=== PATIENT | male | born 1945 | race Caucasian/White ===

== ENCOUNTER → 2016-05-16 | Outpatient (CLI) | payer BC ==
[~2016-05-16] MED LIST: ASPEC81 PO; ENAL1TAB34 PO; FIBER PO; FLM4 PO; MULT-506 PO; PRLSR20 PO; TRIA0.1C20 TD
[2016-05-16 12:21] LABS: BASO % 0.4 %; BASO ABS # 0.02 K/uL (0-0.2); COMPLETE YES; EOS % 2.8 %; HEMATOCRIT 41.6 % (42-52); IG% 0.2 %; LYMPH % 23.6 %; MEAN CELL VOLUME 89.7 fL (80-100); MEAN CORPUSCULAR HEMOGLOBIN 30.4 pg (25-34); MEAN CORPUSCULAR HGB CONC 33.9 g/dl (32-36); MEAN PLATELET VOLUME 10.9 fL (7.4-10.4); MONO % 9.6 %; NEUT % 63.4 %; PLATELET COUNT 166 K/uL (130-400); RED BLOOD COUNT 4.64 M/uL (4.7-6.1); WHITE BLOOD COUNT 5.09 K/uL (4.8-10.8)
[2016-05-16 15:02] LABS: BLOOD UREA NITROGEN 15 mg/dl (7-18); BUN/CREATININE RATIO 12.8 (10-20); CALCIUM 9.2 mg/dl (8.5-10.1); CARBON DIOXIDE 25 mmol/L (21-32); CHLORIDE 107 mmol/L (98-107); GLUCOSE 92 mg/dl (70-99); MAGNESIUM 2.3 mg/dl (1.8-2.4); POTASSIUM 4.2 mmol/L (3.5-5.1); SODIUM 142 mmol/L (136-145)
[2016-05-16 15:09] LABS: ALB/GLOB RATIO 1.2 (0.9-2); ALKALINE PHOSPHATASE 57 U/L (45-117); ALT/SGPT 33 U/L (12-78); AST/SGOT 22 U/L (15-37); CHOLESTEROL 108 mg/dl (0-200); CHOLESTEROL/HDL RATIO 3.3; HDL CHOLESTEROL 33 mg/dl; LDL CHOLESTEROL CALCULATED 56 mg/dl; TRIGLYCERIDES 95 mg/dl (0-150); VERY LOW DENSITY LIPOPROT CALC 19 mg/dl
== END | disposition home or self-care (01) ==
LOC: C.LABPVFM 08:24
PROVIDERS: ATTEND Family Medicine
DX: I10 Essential (primary) hypertension (principal); E78.5 Hyperlipidemia, unspecified; K21.9 Gastro-esophageal reflux disease without esophagitis; I73.00 Raynaud's syndrome without gangrene; Z51.81 Encounter for therapeutic drug level monitoring; M50.90 Cervical disc disorder, unspecified, unspecified cervical region; M47.812 Spondylosis without myelopathy or radiculopathy, cervical region; L30.9 Dermatitis, unspecified; R13.10 Dysphagia, unspecified; K57.30 Diverticulosis of large intestine without perforation or abscess without bleeding; M25.50 Pain in unspecified joint; Z12.5 Encounter for screening for malignant neoplasm of prostate

== ENCOUNTER → 2016-12-09 | Outpatient (CLI) | payer BC ==
[2016-12-09 13:07] LABS: ALB/GLOB RATIO 1.2 (0.9-2); ALT/SGPT 31 U/L (12-78); AST/SGOT 21 U/L (15-37); BLOOD UREA NITROGEN 16 mg/dl (7-18); BUN/CREATININE RATIO 14.4 (10-20); CALCIUM 9.3 mg/dl (8.5-10.1); CARBON DIOXIDE 26 mmol/L (21-32); CHLORIDE 109 mmol/L (98-107); CHOLESTEROL 98 mg/dl (0-200); GLUCOSE 94 mg/dl (70-99); POTASSIUM 4.1 mmol/L (3.5-5.1); SODIUM 141 mmol/L (136-145)
[2016-12-09 13:10] LABS: ALKALINE PHOSPHATASE 56 U/L (45-117); CHOLESTEROL/HDL RATIO 3.2; HDL CHOLESTEROL 31 mg/dl; LDL CHOLESTEROL CALCULATED 46 mg/dl; TRIGLYCERIDES 104 mg/dl (0-150); VERY LOW DENSITY LIPOPROT CALC 21 mg/dl
== END | disposition home or self-care (01) ==
LOC: C.LABPVFM 09:46
PROVIDERS: ATTEND Family Medicine
DX: I10 Essential (primary) hypertension (principal); E78.5 Hyperlipidemia, unspecified; K21.9 Gastro-esophageal reflux disease without esophagitis; N40.1 Benign prostatic hyperplasia with lower urinary tract symptoms; I73.00 Raynaud's syndrome without gangrene; R97.20 Elevated prostate specific antigen [PSA]

== ENCOUNTER → 2016-12-15 | Outpatient (CLI) | payer BC ==
--- NOTE | 2016-12-15 10:54 | DIAGNOSTIC IMAGING REPORT ---
C-SPINE ROUTINE 4 OR 5 VIEWS HISTORY: Pain. Neuropathy. M54.2 [id number] COMPARISON: None. FINDINGS: The cervical spine is visualized from C1 through the superior endplate of T1. There is no fracture. No subluxation. Degenerative disc change most significant from C5 through C7. Moderate anterior and posterior osteophytic change throughout. Osteophytic narrowing of the neuroforamina bilaterally from C5 through C7. Prevertebral soft tissues and the atlantodens interval are intact. IMPRESSION: Moderate to rather significant degenerative disc change from C5 through C7. Moderate degenerative change posterior elements. No acute process. The above report was generated using voice recognition software. It may contain grammatical, syntax or spelling errors. Electronically signed by: Guillermo Wild M.D. 12/15/2016 10:53 AM Dictated Date/Time: 12/15/2016 10:51 AM
== END | disposition home or self-care (01) ==
LOC: C.LABPVFM 10:18
PROVIDERS: ATTEND Family Medicine
DX: M54.2 Cervicalgia (principal)

== ENCOUNTER → 2017-06-12 | Outpatient (CLI) | payer BC ==
[2017-06-12 14:05] LABS: ALT/SGPT 31 U/L (12-78); BLOOD UREA NITROGEN 20 mg/dl (7-18); CALCIUM 9.1 mg/dl (8.5-10.1); CARBON DIOXIDE 27 mmol/L (21-32); CHOLESTEROL 103 mg/dl (0-200); CREATININE 1.26 mg/dl (0.60-1.40); GLUCOSE 94 mg/dl (70-99); SODIUM 138 mmol/L (136-145)
[2017-06-12 14:11] LABS: ALKALINE PHOSPHATASE 54 U/L (45-117); AST/SGOT 22 U/L (15-37); LDL CHOLESTEROL CALCULATED 58 mg/dl; TOTAL PROTEIN 7.5 gm/dl (6.4-8.2)
== END | disposition home or self-care (01) ==
LOC: C.LABPVFM 09:37
PROVIDERS: ATTEND Family Medicine
DX: I10 Essential (primary) hypertension (principal); E78.5 Hyperlipidemia, unspecified; K21.9 Gastro-esophageal reflux disease without esophagitis; I73.00 Raynaud's syndrome without gangrene; N40.1 Benign prostatic hyperplasia with lower urinary tract symptoms; M54.2 Cervicalgia

== ENCOUNTER → 2017-07-17 | Outpatient (CLI) | payer BC | END | disposition home or self-care (01) | LOC: C.LABPVFM 09:47 | PROVIDERS: ATTEND Family Medicine | DX: N40.1 Benign prostatic hyperplasia with lower urinary tract symptoms (principal) ==

== ENCOUNTER 2018-10-19 19:56 | Inpatient (IN) ==
[2018-10-19] MEDS ORDERED: SODIUM CHLORIDE 0.9% 250 ML IV PRN (20:09)
[2018-10-19] MEDS ORDERED: SODIUM CHLORIDE 0.9% 500 ML IV SCH (20:15)
[2018-10-19 20:56] LABS: Mean Corpuscular Hgb Conc 28.4 g/dL (32-36)
[2018-10-19 21:03] LABS: Alanine Aminotransferase 21 U/L (12-78); Albumin Level 4.3 gm/dl (3.4-5.0); Aspartate Aminotransferase 21 U/L (15-37); BUN Creatinine Ratio 14.8 (10-20); Blood Urea Nitrogen 19 mg/dl (7-18); Calcium 8.8 mg/dl (8.5-10.1); Carbon Dioxide 25 mmol/L (21-32); Chloride 106 mmol/L (98-107); Creatinine Clr Calc Pharmacy 47.5 ml/min; Est GFR (African American) 61.9; Est GFR (Non-African American) 53.4; Glucose 92 mg/dl (70-99); Iron 12 mcg/dl (35-175); Sodium 137 mmol/L (136-145)
[2018-10-19 21:06] LABS: Albumin Globulin Ratio 1.2 (0.9-2); Alkaline Phosphatase 56 U/L (45-117); Bilirubin,Total 0.3 mg/dl (0.2-1); Ferritin 4.7 ng/ml (8-388); Globulin 3.5 gm/dl (2.5-4.0); Total Protein 7.8 gm/dl (6.4-8.2); Transferrin 402 mg/dl (200-360); Troponin I < 0.015 ng/ml (0-0.045)
[2018-10-19 21:10] LABS: Anisocytosis Present; Basophils # (manual) 0.04 K/uL (0-0.2); Basophils % (manual) 0.9 %; Eosinophils # (manual) 0.04 K/uL (0-0.5); Eosinophils % (manual) 0.9 %; Giant Platelets 2+; Hematocrit (blood only) 23.2 % (42-52); Hemoglobin 6.6 g/dL (14.0-18.0); Hypochromasia Present; Lymphocytes # (manual) 0.43 K/uL (1.2-3.4); Lymphocytes % (manual) 9.8 %; Mean Corpuscular Volume 66.3 fL (80-100); Microcytosis Present; Monocytes # (manual) 0.24 K/uL (0.11-0.59); Monocytes % (manual) 5.4 %; Neutrophils % (manual) 72.3 %; Ovalocytes 1+; Platelet Count 103 K/uL (130-400); Platelet Estimate Decreased (Normal); Poikilocytosis Present; Polychromasia 1+; RDW Standard Deviation 53.2 fL (36.4-46.3); Reactive Lymphocytes # (manual) 0.47 K/uL; Spherocytes Occasional; Target Cells 1+
[2018-10-19 21:26] LABS: Fibrinogen 246 mg/dl (184-400); INR 1.1 (0.9-1.1); Partial Thromboplastin Ratio 0.8; Partial Thromboplastin Time 22.5 Seconds (21.0-31.0); Prothrombin Time 11.1 Seconds (9.0-12.0)
[2018-10-19 21:41] LABS: Lyme Ab IgG w/WB Rflx Negative (Negative); Lyme Ab IgM w/WB Rflx Negative (Negative)
--- NOTE | 2018-10-19 21:56 | History & Physical Report ---
Date of Service October 19, 2018 Assessment & Plan (1) Dyspnea on exertion: Pt is a 73yo gentleman with a PMHx of GERD, HTN, HLD, BPH, and chronic low back and neck pain presenting with symptoms of dyspnea on exertion and melena. Melena -Pt states he has been having black stools for the last week -Hgb of 6 noted on admission with microcytic anemia. -currently stable however with blood pressure >120 systolic and HR within normal range s/p fluid boluses in the ED -will transfuse but not emergently; type and cross and consent -Given color of stools, likely an upper GI bleed. -Has a Hx of being scoped by Dr. Toth in the past; states his last EGD was within the last year. -States they noted a gastric polyp which was nonconcerning. Hx of GERD and takes omeprazole but No Hx of ulcers. -Given microcytic anemia with bleeding, will need to rule out colorectal carci noma. -Last colonoscopy was in the last 4 years, no concerns -Pt states he uses a baby aspirin daily along with Excedrin sporadically for his chronic back pain. Last Excedrin dose was yesterday. -No alcohol use in the last 5 years -will consult GI -will keep NPO for possible procedure in AM -will start on Pepcid, given NPO status hold home omeprazole -continue fluids Pancytopenia -Pt with pancytopenia as well -DDx includes Myelodysplastic Syndrome vs. acute infection such as anaplasmosis/erlichiosis vs. other -Lyme, anaplasmosis titers ordered by ED -Peripheral smear pending Dyspnea on Exertion -Likely secondary to GI Bleed as above -currently on room air and saturating well -supplement O2 as needed GERD -hold home omeprazole -On Pepcid IV for GI bleed HTN -currently well controlled -Hold home med of nifidepine overnight HLD -given NPO status hold home med of atorvastatin overnight BPH -Given NPO status, hold tamsulosin overnight Chronic Low back pain -Tylenol 1000mg PRN DVT prophylaxis: SCDs FEN/GI: NPO until GI sees him; NSS CODE STATUS: Full Dispo: Med Surg with Tele History of Present Illness Primary Care Provider: Tali Lan MD Pt is a 73yo gentleman with a PMHx of GERD, HTN, HLD, BPH, and chronic low back and neck pain presenting with symptoms of dyspnea on exertion and Hx of melena. Pt states he was at his hairdresser whom he has not seen for while, who stated that he looked "yellow" or pale. He as a result made an appt with his PCP and went in today cause he also has chronic back pain. They benjamin labs and he got a call this evening advising he go to the ED as his hgb was 6. States he has been having dyspnea on exertion since the Spring but has noted it particularly in the last week along with the black stools. No Hx of NSAID use, does use Excedrin for his pain sporadically along with a daily baby aspirin. No alcohol use but does endorse a Hx of being scoped by Dr. Toth in the last year and told he had a nonconcerning gastric polyp. Does not recall any ulcers. Has had a colonoscopy with the last about 4 years ago. PMHx: HTN, GERD, HLD, BPH, chronic back pain PSH: hernia repair Meds: as listed below Allergies: as listed below SH: Smoker of cigarettes and pipe for 30years, stopped in 1984. No alcohol use in the last 5 years. No recreational drug use. ED Course: At time of writing transfusing 1U. Allergies Allergy/AdvReac Type Severity Reaction Status Date / Time Amoxil TAB Allergy Unknown Uncoded 10/19/18 13:49 Atenolol TABS Allergy Unknown Uncoded 10/19/18 13:49 Home Medications Home Medications Medication Instructions Recorded Confirmed Type atorvastatin 10 mg tablet 10 mg PO DAILY #90 tab 10/17/18 10/19/18 Rx calcium polycarbophil 625 mg tablet 625 mg PO DAILY #60 tab 10/17/18 10/19/18 Rx enalapril maleate 20 mg tablet 20 mg PO DAILY #90 tab 10/19/18 10/19/18 Rx nifedipine 30 mg PO QPM 10/19/18 10/19/18 History omeprazole magnesium 20 mg PO Q OTHER DAY 10/19/18 10/19/18 History ranitidine HCl [Zantac] 150 mg PO Q OTHER DAY 10/19/18 10/19/18 History tamsulosin 0.4 mg PO QPM 10/19/18 10/19/18 History Past Med/Surg History Medical History Atrial fibrillation BPH (benign prostatic hyperplasia) GERD (gastroesophageal reflux disease) Hypertension No significant past medical history TMJ (temporomandibular joint disorder) Surgical History H/O hernia repair Social History Preferred Language: Finnish [employer] Required: No Beliefs That Will Affect Care: None Current Living Situation: Spouse Other Information That Helps Us Care for You: No Feels Safe at Home: Yes Safety Concerns: Feels Safe At This Time Smoking Status: Former smoker Tobacco Type: cigarettes and pipe Smoking End Date: 1984 Hx Alcohol Use: No Hx Substance Use: No Review of Systems Constitutional: + fatigue and + weakness; no fever and no chills Eyes: no worsening vision Ear, Nose, Mouth, Throat: + dizziness Respiratory: + dyspnea on exertion; no hemoptysis Cardiovascular: + dyspnea and + lightheadedness; no chest pain, no palpitations, no syncope and no edema Gastrointestinal: no abdominal pain, no nausea, no vomiting, no constipation and no diarrhea/loose stools Genitourinary: no dysuria Musculoskeletal: + back pain and + neck pain Neurologic: + dizziness; no headache(s) and no confusion Psychiatric: no confusion Endocrine: + fatigue Physical Exam Constitutional: well developed and + thin; no acute distress Eyes: PERRL, conjunctivae normal, anicteric sclerae ENMT: external ear and nose normal, oropharynx normal Neck: trachea midline, no thyromegaly Respiratory: normal respiratory effort, lungs clear to auscultation Auscultation: + diminished lung sounds Cardiovascular: RRR, no murmur, no edema Gastrointestinal (Abdomen): normal bowel sounds, soft, nontender, no hepatosplenomegaly Musculoskeletal: no cyanosis or clubbing, extremities motor strength 5/5 Neurologic: moves all extremities; not confused Psychiatric: A+Ox3, euthymic affect Results & Data Vital Signs (Past 12 Hours) Vital Signs Temp Pulse Resp BP Pulse Ox 10/19/18 20:09 96 10/19/18 19:58 36.5 C 84 18 154/80 H 100 Laboratory Results Laboratory Results - last 24 hr 10/19/18 10/19/18 10/19/18 20:09 20:20 20:20 WBC 4.37 L RBC 3.50 L Hgb 6.6 L* Hct 23.2 L MCV 66.3 L MCH 18.9 L MCHC 28.4 L RDW Std Deviation 53.2 H RDW Coeff of Joesph 22.0 H Plt Count 103 L MPV Not Reportable Neutrophils % (Manual) 72.3 Lymphocytes % (Manual) 9.8 Reactive Lymphs % (Man) 10.7 Monocytes % (Manual) 5.4 Eosinophils % (Manual) 0.9 Basophils % (Manual) 0.9 Neutrophils # (Manual) 3.16 Total Absolute Neuts 3.16 Lymphocytes # (Manual) 0.43 L Reactive Lymphs # 0.47 Total Abs Lymphocytes 0.90 L Monocytes # (Manual) 0.24 Eosinophils # (Manual) 0.04 Basophils # (Manual) 0.04 Platelet Estimate Decreased L Giant Platelets 2+ Polychromasia 1+ Hypochromasia Present Poikilocytosis Present Anisocytosis Present Microcytosis Present Spherocytes Occasional Target Cells 1+ Ovalocytes 1+ Peripher Smr Path Cons Pending Haptoglobin PT 11.1 INR 1.1 APTT 22.5 PTT Ratio 0.8 Fibrinogen 246 Sodium Potassium Chloride Carbon Dioxide Anion Gap BUN Creatinine Est Cr Clr Drug Dosing Est GFR ( Amer) Est GFR (Non-Af Amer) BUN/Creatinine Ratio Glucose Calcium Iron TIBC Transferrin Ferritin Total Bilirubin AST ALT Alkaline Phosphatase Lactate Dehydrogenase Troponin I Total Protein Albumin Globulin Albumin/Globulin Ratio Lipase POC Stool Occult Blood Pending Ethyl Alcohol mg/dL A. phagocytophilum DNA Lyme Disease IgG Ab Lyme Disease IgM Ab E. chaffeensis IgG Ab E. chaffeensis IgM Ab E.chaffeensis DNA (PCR) E. chaffeensis Interp E. chaffeensis Comment Rickettsia IgG Ab Rickettsia IgM Ab Blood Type Antibody Screen Crossmatch 10/19/18 10/19/18 10/19/18 20:20 20:20 20:20 WBC RBC Hgb Hct MCV MCH MCHC RDW Std Deviation RDW Coeff of Joesph Plt Count MPV Neutrophils % (Manual) Lymphocytes % (Manual) Reactive Lymphs % (Man) Monocytes % (Manual) Eosinophils % (Manual) Basophils % (Manual) Neutrophils # (Manual) Total Absolute Neuts Lymphocytes # (Manual) Reactive Lymphs # Total Abs Lymphocytes Monocytes # (Manual) Eosinophils # (Manual) Basophils # (Manual) Platelet Estimate Giant Platelets Polychromasia Hypochromasia Poikilocytosis Anisocytosis Microcytosis Spherocytes Target Cells Ovalocytes Peripher Smr Path Cons Haptoglobin PT INR APTT PTT Ratio Fibrinogen Sodium 137 Potassium 4.0 Chloride 106 Carbon Dioxide 25 Anion Gap 5.0 BUN 19 H Creatinine 1.30 Est Cr Clr Drug Dosing 47.5 Est GFR ( Amer) 61.9 Est GFR (Non-Af Amer) 53.4 BUN/Creatinine Ratio 14.8 Glucose 92 Calcium 8.8 Iron 12 L TIBC 524 H Transferrin 402 H Ferritin 4.7 L Total Bilirubin 0.3 AST 21 ALT 21 Alkaline Phosphatase 56 Lactate Dehydrogenase 212 Troponin I < 0.015 Total Protein 7.8 Albumin 4.3 Globulin 3.5 Albumin/Globulin Ratio 1.2 Lipase 369 POC Stool Occult Blood Ethyl Alcohol mg/dL A. phagocytophilum DNA Lyme Disease IgG Ab Lyme Disease IgM Ab E. chaffeensis IgG Ab E. chaffeensis IgM Ab E.chaffeensis DNA (PCR) E. chaffeensis Interp E. chaffeensis Comment Rickettsia IgG Ab Rickettsia IgM Ab Blood Type A Positive Antibody Screen NEGATIVE Crossmatch See Detail 10/19/18 10/19/18 10/19/18 20:20 20:22 21:11 WBC RBC Hgb Hct MCV MCH MCHC RDW Std Deviation RDW Coeff of Joesph Plt Count MPV Neutrophils % (Manual) Lymphocytes % (Manual) Reactive Lymphs % (Man) Monocytes % (Manual) Eosinophils % (Manual) Basophils % (Manual) Neutrophils # (Manual) Total Absolute Neuts Lymphocytes # (Manual) Reactive Lymphs # Total Abs Lymphocytes Monocytes # (Manual) Eosinophils # (Manual) Basophils # (Manual) Platelet Estimate Giant Platelets Polychromasia Hypochromasia Poikilocytosis Anisocytosis Microcytosis Spherocytes Target Cells Ovalocytes Peripher Smr Path Cons Cancelled Haptoglobin Pending PT INR APTT PTT Ratio Fibrinogen Sodium Potassium Chloride Carbon Dioxide Anion Gap BUN Creatinine Est Cr Clr Drug Dosing Est GFR ( Amer) Est GFR (Non-Af Amer) BUN/Creatinine Ratio Glucose Calcium Iron TIBC Transferrin Ferritin Total Bilirubin AST ALT Alkaline Phosphatase Lactate Dehydrogenase Troponin I Total Protein Albumin Globulin Albumin/Globulin Ratio Lipase POC Stool Occult Blood Ethyl Alcohol mg/dL A. phagocytophilum DNA Pending Lyme Disease IgG Ab Negative Lyme Disease IgM Ab Negative E. chaffeensis IgG Ab Pending E. chaffeensis IgM Ab Pending E.chaffeensis DNA (PCR) E. chaffeensis Interp Pending E. chaffeensis Comment Pending Rickettsia IgG Ab Pending Rickettsia IgM Ab Pending Blood Type Antibody Screen Crossmatch 10/19/18 10/19/18 21:11 21:11 WBC RBC Hgb Hct MCV MCH MCHC RDW Std Deviation RDW Coeff of Joesph Plt Count MPV Neutrophils % (Manual) Lymphocytes % (Manual) Reactive Lymphs % (Man) Monocytes % (Manual) Eosinophils % (Manual) Basophils % (Manual) Neutrophils # (Manual) Total Absolute Neuts Lymphocytes # (Manual) Reactive Lymphs # Total Abs Lymphocytes Monocytes # (Manual) Eosinophils # (Manual) Basophils # (Manual) Platelet Estimate Giant Platelets Polychromasia Hypochromasia Poikilocytosis Anisocytosis Microcytosis Spherocytes Target Cells Ovalocytes Peripher Smr Path Cons Haptoglobin PT INR APTT PTT Ratio Fibrinogen Sodium Potassium Chloride Carbon Dioxide Anion Gap BUN Creatinine Est Cr Clr Drug Dosing Est GFR ( Amer) Est GFR (Non-Af Amer) BUN/Creatinine Ratio Glucose Calcium Iron TIBC Transferrin Ferritin Total Bilirubin AST ALT Alkaline Phosphatase Lactate Dehydrogenase Troponin I Total Protein Albumin Globulin Albumin/Globulin Ratio Lipase POC Stool Occult Blood Ethyl Alcohol mg/dL < 3.0 A. phagocytophilum DNA Lyme Disease IgG Ab Lyme Disease IgM Ab E. chaffeensis IgG Ab E. chaffeensis IgM Ab E.chaffeensis DNA (PCR) Pending E. chaffeensis Interp E. chaffeensis Comment Rickettsia IgG Ab Rickettsia IgM Ab Blood Type Antibody Screen Crossmatch Medications Administered Home Medications atorvastatin 10 mg tablet 10 mg PO DAILY #90 tab 10/17/18 [Rx Confirmed 10/19/18] calcium polycarbophil 625 mg tablet 625 mg PO DAILY #60 tab 10/17/18 [Rx Confirmed 10/19/18] enalapril maleate 20 mg tablet 20 mg PO DAILY #90 tab 10/19/18 [Rx Confirmed 10/19/18] nifedipine 30 mg PO QPM 10/19/18 [History Confirmed 10/19/18] omeprazole magnesium 20 mg PO Q OTHER DAY 10/19/18 [History Confirmed 10/19/18] ranitidine HCl [Zantac] 150 mg PO Q OTHER DAY 10/19/18 [History Confirmed 10/19/18] tamsulosin 0.4 mg PO QPM 10/19/18 [History Confirmed 10/19/18] Active Medications Sodium Chloride (Nss) 250 mls @ 15 mls/hr IV .[id number] PRN PRN Reason: For Transfusion Stop: 11/18/18 20:08 Doxycycline Hyclate 100 mg/ (Dextrose) 110 mls @ 50 mls/hr IV NOW STA Stop: 10/20/18 00:34 Last Admin: 10/19/18 23:00 Dose: 50 mls/hr Documented by: Ioversol (Optiray 320 100ml) 95 ml IV ONCE PRN PRN Reason: Interaction Checking Stop: 10/23/18 21:56 Last Admin: 10/19/18 21:57 Dose: 95 ml Documented by: Supervising Physician Co-Signing Physician Notes Attending addendum: I have physically seen this patient, have supervised the medical residents activities, and agree with the H&P unless as otherwise noted. Assessment and Plan: Symptomatic anemia/pancytopenia- Patient noted to have melenic stools over the past week, and had a hemoglobin test in the outpatient setting of 6, which prompted referral to the ED. On ED laboratories, patient is noted to be pancytopenic with WBC 4.37, hemoglobin 6.6 and platelets 103, raising the concern of possible MDS. Admit to monitored bed. Blood pressure and heart rate are well maintained at this time. Type and screen performed. We will transfuse to hemoglobin of 8, with orders already placed by the ED. N.p.o. except essential medications. Protonix IV. Consult gastroenterology, has been seen by Dr. Toth in the past. May need hematology consult to further address pancytopenia issues, if anaplasmosis/ehrlichiosis work-up is negative. Peripheral smear to be ordered. Remainder of orders and notations as noted. PG Care Time/CCT Total # of Minutes Spent Total Time Spent with Patient: Total time spent is greater than 50% in coordination of care (as documented) at patient's floor/unit and/or counseling patient:
[2018-10-19] MEDS ORDERED: IOVERSOL 100ml IV PRN (21:57)
--- NOTE | 2018-10-19 22:14 | CT Scan Report ---
ABDOMEN AND PELVIS CT WITH IV CONTRAST CT DOSE: 367.48 mGy.cm HISTORY: Acute severe anemia severe anemia TECHNIQUE: Multiaxial CT images of the abdomen and pelvis were performed following the use of intrave nous contrast. A dose lowering technique was utilized adhering to the principles of ALARA. COMPARISON STUDY: Lumbar spine radiographs of same day, abdominal ultrasound of the aorta 09/23/2014 FINDINGS: Emphysematous changes of the lung bases. Mild right hemidiaphragmatic elevation. Punctate calcified g ranuloma of the posterior basal segment left lower lobe. No pneumatosis or pneumoperitoneum. The imag ed inferior cardiac chambers are mildly enlarged. Spleen, pancreas and adrenal glands are unremarkabl e. Cholelithiasis about the gallbladder neck. No CT evidence of acute cholecystitis or biliary ductal dilation. Liver appears unremarkable. Kidneys and ureters are unremarkable. Prostamegaly with mild u rinary bladder distention. Calcified plaque the abdominal aorta and iliac arteries. There is no adeno shannon identified. Small hiatal hernia. No bowel obstruction. Colonic diverticulosis without acute diverticulitis. There is bowel wall thickening with minimal pericolonic stranding noted ascending from the proximal transv erse colon through the descending segment. Normal appendix. Stool-filled distal ileum. Tiny fat fille d periumbilical hernia. Soft tissues are unremarkable. Spondylitic spurring and facet arthrosis. Mult ilevel disc space narrowing. Dextroscoliosis. IMPRESSION: 1. Mild wall thickening with mild pericolonic stranding extends from the proximal transverse colon th rough the distal descending colon suggestive of a nonspecific colitis. 2. No bowel obstruction, pneumatosis or pneumoperitoneum. 3. Colonic diverticulosis without acute diverticulitis. 4. Cholelithiasis without CT evidence of acute cholecystitis. 5. Prostamegaly with mild urinary bladder distention. 6. Additional findings as above. Electronically signed by: Sergey Melendez M.D. 10/19/2018 10:11 PM
[2018-10-19] MEDS ORDERED: DOXYCYCLINE HYCLATE 100 MG in DEXTROSE 5% 100 ML IV STA (22:23)
--- NOTE | 2018-10-19 22:50 | Emergency Department Note ---
Entered by Ricarda Kaufman acting as a scribe for History of Present Illness General Chief complaint: Abnormal Labs/Diagnostic Testing Stated complaint: SENT FOR BLOOD TRANSFUSION Time Seen by Provider: 10/19/18 20:07 Source: patient History of Present Illness Onset (ago): hour(s) (today) Location: head (general) Pain Consistency: + other (episode ) Quality: + other (abnormal bloodwork) Associated symptoms: + cough, + shortness of breath and + other (positive intermittent lightheaded; positive decreased energy; positive dark stools; negative blood in stools; positive diarrhea; positive congestion); no fever/chills The patient is a 73 year old male who presents to the Emergency Room with complaints of an episode of abnormal blood work that began today. The patient states that he was at his PCP's office for blood work when it was found that he had a hemoglobin of 6. The patient states that he got this blood work after someone told him his skin was yellowish. He states that over the past several months he has been feeling intermittently lightheaded, shortness of breath, and decreased energy. The patient states that over the past several weeks he has had some cough and congestion, but denies fevers. The patient states that he has some dark stools, but denies blood in his stools. The patient states that he had some diarrhea just prior to arrival. He states that he has previously had co lonoscopies and endoscopies that showed fissures and a polyp. The patient denies being on blood thinners. He denies being out in the [place] and recent tick bites. Home Medications Home Medications Medication Instructions Recorded Confirmed Type atorvastatin 10 mg tablet 10 mg PO DAILY #90 tab 10/17/18 10/19/18 Rx calcium polycarbophil 625 mg tablet 625 mg PO DAILY #60 tab 10/17/18 10/19/18 Rx enalapril maleate 20 mg tablet 20 mg PO DAILY #90 tab 10/19/18 10/19/18 Rx nifedipine 30 mg PO QPM 10/19/18 10/19/18 History omeprazole magnesium 20 mg PO Q OTHER DAY 10/19/18 10/19/18 History ranitidine HCl [Zantac] 150 mg PO Q OTHER DAY 10/19/18 10/19/18 History tamsulosin 0.4 mg PO QPM 10/19/18 10/19/18 History Allergies Allergy/AdvReac Type Severity Reaction Status Date / Time Amoxil TAB Allergy Unknown Uncoded 10/19/18 13:49 Atenolol TABS Allergy Unknown Uncoded 10/19/18 13:49 Past Med/Surg History Medical History Atrial fibrillation BPH (benign prostatic hyperplasia) GERD (gastroesophageal reflux disease) Hypertension No significant past medical history TMJ (temporomandibular joint disorder) Surgical History H/O hernia repair Social History Preferred Language: Beninese Guide Changer Required: No Beliefs That Will Affect Care: None Current Living Situation: Spouse Other Information That Helps Us Care for You: No Feels Safe at Home: Yes Safety Concerns: Feels Safe At This Time Smoking Status: Former smoker Tobacco Type: cigarettes and pipe Smoking End Date: 1984 Hx Alcohol Use: No Hx Substance Use: No Review of Systems See HPI for pertinent positives & negatives. and A total of 10 systems reviewed and were otherwise negative Physical Exam Vital Signs Vital Signs - 24 hr 10/19/18 19:58 10/19/18 20:09 10/19/18 20:32 Temperature 36.5 C Temperature Source Oral Sepsis Recent Fever Within 48 Hours No Sepsis New/Unexplained Change in Mental Status No Sepsis Action Taken by Nursing No Action Required Pulse Rate 84 79 Pulse Rate [Left] Respiratory Rate 18 19 Blood Pressure 154/80 H 158/86 H Blood Pressure [Right Arm] Blood Pressure Mean 104 110 Blood Pressure Mean [Right Arm] Blood Pressure Position [Right Arm] Pulse Oximetry 100 96 99 Oxygen Delivery Method Room Air 10/19/18 20:34 10/19/18 20:47 10/19/18 21:00 Temperature Temperature Source Sepsis Recent Fever Within 48 Hours Sepsis New/Unexplained Change in Mental Status Sepsis Action Taken by Nursing Pulse Rate 81 79 80 Pulse Rate [Left] Respiratory Rate 16 21 17 Blood Pressure 155/80 H Blood Pressure [Right Arm] Blood Pressure Mean 105 Blood Pressure Mean [Right Arm] Blood Pressure Position [Right Arm] Pulse Oximetry 100 98 Oxygen Delivery Method 10/19/18 21:15 10/19/18 21:30 10/19/18 21:45 Temperature Temperature Source Sepsis Recent Fever Within 48 Hours Sepsis New/Unexplained Change in Mental Status Sepsis Action Taken by Nursing Pulse Rate 67 65 85 Pulse Rate [Left] Respiratory Rate 14 12 17 Blood Pressure Blood Pressure [Right Arm] Blood Pressure Mean Blood Pressure Mean [Right Arm] Blood Pressure Position [Right Arm] Pulse Oximetry 99 99 99 Oxygen Delivery Method 10/19/18 22:03 10/19/18 22:04 10/19/18 22:05 Temperature Temperature Source Sepsis Recent Fever Within 48 Hours Sepsis New/Unexplained Change in Mental Status Sepsis Action Taken by Nursing Pulse Rate 84 84 Pulse Rate [Left] 92 H Respiratory Rate 41 H 16 18 Blood Pressure 137/81 Blood Pressure [Right Arm] 131/81 Blood Pressure Mean 99 Blood Pressure Mean [Right Arm] 97 Blood Pressure Position [Right Arm] Sitting Pulse Oximetry 95 94 97 Oxygen Delivery Method 10/19/18 22:15 Temperature Temperature Source Sepsis Recent Fever Within 48 Hours Sepsis New/Unexplained Change in Mental Status Sepsis Action Taken by Nursing Pulse Rate 81 Pulse Rate [Left] Respiratory Rate 20 Blood Pressure Blood Pressure [Right Arm] Blood Pressure Mean Blood Pressure Mean [Right Arm] Blood Pressure Position [Right Arm] Pulse Oximetry 98 Oxygen Delivery Method GENERAL: Awake, alert, fatigued-appearing, in no distress HENT: Normocephalic, atraumatic. Oropharynx with dry mucous membranes and otherwise unremarkable. EYES: Normal conjunctiva. Sclera non-icteric. NECK: Supple. No nuchal rigidity. FROM. No JVD. RESPIRATORY: CTAB. CARDIAC: Regular rate, normal rhythm. Extremities warm and well perfused. Pulses equal. ABDOMEN: Soft, non-distended. No tenderness to palpation. No rebound or guarding. No masses. RECTAL: No stool, blood, or melena. MUSCULOSKELETAL: Chest examination reveals no tenderness. The back is symmetrical on inspection without obvious abnormality. There is no CVA tenderness to palpation. No joint edema. LOWER EXTREMITIES: Calves are equal size bilaterally and non-tender. No edema. No discoloration. NEURO: Normal sensorium. No sensory or motor deficits noted. SKIN: Hyperpigmentation of the skin. Subtle petechia or lower extremities. Course 2020: Past medical records reviewed. The patient was evaluated in room B4B. A complete history and physical exam was performed. [id number]: I discussed the case with Dr. Andres-[facility] Hospitalist who accepts the patient for further evaluation. Consultations Consultation #1: I discussed the case with Dr. Andres-[facility] Hospitalist who accepts the patient for further evaluation. Time: 22:19 Administered Medications Sodium Chloride (Nss 1000ml) 1,000 mls @ 125 mls/hr IV .Q8H RITO Stop: 11/18/18 23:44 Last Admin: 10/20/18 00:00 Dose: 125 mls/hr Documented by: [id number] Ioversol (Optiray 320 100ml) 95 ml IV ONCE PRN PRN Reason: Interaction Checking Stop: 10/23/18 21:56 Last Admin: 10/19/18 21:57 Dose: 95 ml Documented by: [id number] Discontinued Medications Sodium Chloride (Nss) 500 mls @ 999 mls/hr IV .Q31M RITO Stop: 10/19/18 20:45 Last Infusion: 10/19/18 21:05 Dose: 0 mls/hr Documented by: [id number] Admin: 10/19/18 20:45 Dose: 999 mls/hr Documented by: [id number] Doxycycline Hyclate 100 mg/ (Dextrose) 110 mls @ 50 mls/hr IV NOW STA Stop: 10/20/18 00:34 Last Infusion: 10/20/18 01:27 Dose: 0 mls/hr Documented by: [id number] Admin: 10/19/18 23:00 Dose: 50 mls/hr Documented by: [id number] Medical Decision Making Differential Diagnosis Differential diagnosis: Etiologies such as metabolic, infection, hypo/hyperglycemia, electrolyte abnormalities, cardiac sources, intracerebral event, toxicologic, neurologic, as well as others were entertained. Medical Records Attestation: I reviewed the patient's medical records. Home Medications Current Medication List: was personally reviewed by me Laboratory Data Attestation: I reviewed the patient's lab results. Result diagrams: 10/19/18 20:20 10/19/18 20:20 Lab Results 10/19/18 10/19/18 10/19/18 Range/Units 20:20 20:20 20:20 WBC 4.37 L (4.8-10.8) K/uL RBC 3.50 L (4.7-6.1) M/uL Hgb 6.6 L* (14.0-18.0) g/dL Hct 23.2 L (42-52) % MCV 66.3 L (80-100) fL MCH 18.9 L (25-34) pg MCHC 28.4 L (32-36) g/dL RDW Std Deviation 53.2 H (36.4-46.3) fL RDW Coeff of Joesph 22.0 H (11.5-14.5) % Plt Count 103 L (130-400) K/uL MPV Not Reportable Neutrophils % (Manual) 72.3 % Lymphocytes % (Manual) 9.8 % Reactive Lymphs % (Man) 10.7 % Monocytes % (Manual) 5.4 % Eosinophils % (Manual) 0.9 % Basophils % (Manual) 0.9 % Neutrophils # (Manual) 3.16 (1.4-6.5) K/uL Total Absolute Neuts 3.16 (1.4-6.5) K/uL Lymphocytes # (Manual) 0.43 L (1.2-3.4) K/uL Reactive Lymphs # 0.47 K/uL Total Abs Lymphocytes 0.90 L (1.2-3.4) K/uL Monocytes # (Manual) 0.24 (0.11-0.59) K/uL Eosinophils # (Manual) 0.04 (0-0.5) K/uL Basophils # (Manual) 0.04 (0-0.2) K/uL Platelet Estimate Decreased L (Normal) Giant Platelets 2+ Polychromasia 1+ Hypochromasia Present Poikilocytosis Present Anisocytosis Present Microcytosis Present Spherocytes Occasional Target Cells 1+ Ovalocytes 1+ Peripher Smr Path Cons PT 11.1 (9.0-12.0) Seconds INR 1.1 (0.9-1.1) APTT 22.5 (21.0-31.0) Seconds PTT Ratio 0.8 Fibrinogen 246 (184-400) mg/dl Sodium 137 (136-145) mmol/L Potassium 4.0 (3.5-5.1) mmol/L Chloride 106 (98-107) mmol/L Carbon Dioxide 25 (21-32) mmol/L Anion Gap 5.0 (3-11) BUN 19 H (7-18) mg/dl Creatinine 1.30 (0.6-1.4) mg/dl Est Cr Clr Drug Dosing 47.5 ml/min Est GFR ( Amer) 61.9 Est GFR (Non-Af Amer) 53.4 BUN/Creatinine Ratio 14.8 (10-20) Glucose 92 (70-99) mg/dl Calcium 8.8 (8.5-10.1) mg/dl Iron 12 L (35-175) mcg/dl TIBC 524 H (250-450) mcg/dl Transferrin 402 H (200-360) mg/dl Ferritin 4.7 L (8-388) ng/ml Total Bilirubin 0.3 (0.2-1) mg/dl AST 21 (15-37) U/L ALT 21 (12-78) U/L Alkaline Phosphatase 56 (45-117) U/L Lactate Dehydrogenase (87-241) U/L Troponin I < 0.015 (0-0.045) ng/ml Total Protein 7.8 (6.4-8.2) gm/dl Albumin 4.3 (3.4-5.0) gm/dl Globulin 3.5 (2.5-4.0) gm/dl Albumin/Globulin Ratio 1.2 (0.9-2) Lipase 369 (73-393) U/L Ethyl Alcohol mg/dL (0-3) mg/dl Lyme Disease IgG Ab (Negative) Lyme Disease IgM Ab (Negative) Blood Type Antibody Screen Crossmatch 10/19/18 10/19/18 10/19/18 Range/Units 20:20 20:20 20:20 WBC (4.8-10.8) K/uL RBC (4.7-6.1) M/uL Hgb (14.0-18.0) g/dL Hct (42-52) % MCV (80-100) fL MCH (25-34) pg MCHC (32-36) g/dL RDW Std Deviation (36.4-46.3) fL RDW Coeff of Joesph (11.5-14.5) % Plt Count (130-400) K/uL MPV Neutrophils % (Manual) % Lymphocytes % (Manual) % Reactive Lymphs % (Man) % Monocytes % (Manual) % Eosinophils % (Manual) % Basophils % (Manual) % Neutrophils # (Manual) (1.4-6.5) K/uL Total Absolute Neuts (1.4-6.5) K/uL Lymphocytes # (Manual) (1.2-3.4) K/uL Reactive Lymphs # K/uL Total Abs Lymphocytes (1.2-3.4) K/uL Monocytes # (Manual) (0.11-0.59) K/uL Eosinophils # (Manual) (0-0.5) K/uL Basophils # (Manual) (0-0.2) K/uL Platelet Estimate (Normal) Giant Platelets Polychromasia Hypochromasia Poikilocytosis Anisocytosis Microcytosis Spherocytes Target Cells Ovalocytes Peripher Smr Path Cons Cancelled PT (9.0-12.0) Seconds INR (0.9-1.1) APTT (21.0-31.0) Seconds PTT Ratio Fibrinogen (184-400) mg/dl Sodium (136-145) mmol/L Potassium (3.5-5.1) mmol/L Chloride (98-107) mmol/L Carbon Dioxide (21-32) mmol/L Anion Gap (3-11) BUN (7-18) mg/dl Creatinine (0.6-1.4) mg/dl Est Cr Clr Drug Dosing ml/min Est GFR ( Amer) Est GFR (Non-Af Amer) BUN/Creatinine Ratio (10-20) Glucose (70-99) mg/dl Calcium (8.5-10.1) mg/dl Iron (35-175) mcg/dl TIBC (250-450) mcg/dl Transferrin (200-360) mg/dl Ferritin (8-388) ng/ml Total Bilirubin (0.2-1) mg/dl AST (15-37) U/L ALT (12-78) U/L Alkaline Phosphatase (45-117) U/L Lactate Dehydrogenase 212 (87-241) U/L Troponin I (0-0.045) ng/ml Total Protein (6.4-8.2) gm/dl Albumin (3.4-5.0) gm/dl Globulin (2.5-4.0) gm/dl Albumin/Globulin Ratio (0.9-2) Lipase (73-393) U/L Ethyl Alcohol mg/dL (0-3) mg/dl Lyme Disease IgG Ab (Negative) Lyme Disease IgM Ab (Negative) Blood Type A Positive Antibody Screen NEGATIVE Crossmatch See Detail 10/19/18 10/19/18 Range/Units 20:22 21:11 WBC (4.8-10.8) K/uL RBC (4.7-6.1) M/uL Hgb (14.0-18.0) g/dL Hct (42-52) % MCV (80-100) fL MCH (25-34) pg MCHC (32-36) g/dL RDW Std Deviation (36.4-46.3) fL RDW Coeff of Joesph (11.5-14.5) % Plt Count (130-400) K/uL MPV Neutrophils % (Manual) % Lymphocytes % (Manual) % Reactive Lymphs % (Man) % Monocytes % (Manual) % Eosinophils % (Manual) % Basophils % (Manual) % Neutrophils # (Manual) (1.4-6.5) K/uL Total Absolute Neuts (1.4-6.5) K/uL Lymphocytes # (Manual) (1.2-3.4) K/uL Reactive Lymphs # K/uL Total Abs Lymphocytes (1.2-3.4) K/uL Monocytes # (Manual) (0.11-0.59) K/uL Eosinophils # (Manual) (0-0.5) K/uL Basophils # (Manual) (0-0.2) K/uL Platelet Estimate (Normal) Giant Platelets Polychromasia Hypochromasia Poikilocytosis Anisocytosis Microcytosis Spherocytes Target Cells Ovalocytes Peripher Smr Path Cons PT (9.0-12.0) Seconds INR (0.9-1.1) APTT (21.0-31.0) Seconds PTT Ratio Fibrinogen (184-400) mg/dl Sodium (136-145) mmol/L Potassium (3.5-5.1) mmol/L Chloride (98-107) mmol/L Carbon Dioxide (21-32) mmol/L Anion Gap (3-11) BUN (7-18) mg/dl Creatinine (0.6-1.4) mg/dl Est Cr Clr Drug Dosing ml/min Est GFR ( Amer) Est GFR (Non-Af Amer) BUN/Creatinine Ratio (10-20) Glucose (70-99) mg/dl Calcium (8.5-10.1) mg/dl Iron (35-175) mcg/dl TIBC (250-450) mcg/dl Transferrin (200-360) mg/dl Ferritin (8-388) ng/ml Total Bilirubin (0.2-1) mg/dl AST (15-37) U/L ALT (12-78) U/L Alkaline Phosphatase (45-117) U/L Lactate Dehydrogenase (87-241) U/L Troponin I (0-0.045) ng/ml Total Protein (6.4-8.2) gm/dl Albumin (3.4-5.0) gm/dl Globulin (2.5-4.0) gm/dl Albumin/Globulin Ratio (0.9-2) Lipase (73-393) U/L Ethyl Alcohol mg/dL < 3.0 (0-3) mg/dl Lyme Disease IgG Ab Negative (Negative) Lyme Disease IgM Ab Negative (Negative) Blood Type Antibody Screen Crossmatch Imaging Data Radiologist's Impression: Radiology results as stated below per my review and the radiologist's interpretation: ABDOMEN AND PELVIS CT WITH IV CONTRAST CT DOSE: 367.48 mGy.cm HISTORY: Acute severe anemia severe anemia TECHNIQUE: Multiaxial CT images of the abdomen and pelvis were performed following the use of intravenous contrast. A dose lowering technique was utilized adhering to the principles of ALARA. COMPARISON STUDY: Lumbar spine radiographs of same day, abdominal ultrasound of the aorta 09/23/2014 FINDINGS: Emphysematous changes of the lung bases. Mild right hemidiaphragmatic elevation. Punctate calcified granuloma of the posterior basal segment left lower lobe. No pneumatosis or pneumoperitoneum. The imaged inferior cardiac chambers are mildly enlarged. Spleen, pancreas and adrenal glands are unremarkable. Cholelithiasis about the gallbladder neck. No CT evidence of acute cholecystitis or biliary ductal dilation. Liver appears unremarkable. Kidneys and ureters are unremarkable. Prostamegaly with mild urinary bladder distention. Calcified plaque the abdominal aorta and iliac arteries. There is no adenopathy identified. Small hiatal hernia. No bowel obstruction. Colonic diverticulosis without acute diverticulitis. There is bowel wall thickening with minimal pericolonic stranding noted ascending from the proximal transverse colon through the descending segment. Normal appendix. Stool-filled distal ileum. Tiny fat filled periumbilical hernia. Soft tissues are unremarkable. Spondylitic spurring and facet arthrosis. Multilevel disc space narrowing. Dextroscoliosis. IMPRESSION: 1. Mild wall thickening with mild pericolonic stranding extends from the proximal transverse colon through the distal descending colon suggestive of a nonspecific colitis. 2. No bowel obstruction, pneumatosis or pneumoperitoneum. 3. Colonic diverticulosis without acute diverticulitis. 4. Cholelithiasis without CT evidence of acute cholecystitis. 5. Prostamegaly with mild urinary bladder distention. 6. Additional findings as above. Electronically signed by: Sergey Melendez M.D. 10/19/2018 10:11 PM ECG Data Attestation: I personally reviewed and interpreted this ECG as follows: Indication: weakness Rate (beats per minute): 71 Rhythm: sinus rhythm Findings: + other (normal axis; no acute ischemia ) and + PVC (occasional) Blood Pressure Blood Pressure Findings: Elevated blood pressure Blood Pressure Disposition: elevated BP felt to be situational MDM Narrative The patient is a pleasant 73-year-old gentleman who presents emergency department referred by his PCP for outpatient labs showing severe anemia with hemoglobin of 6 in the setting of seeing his primary care doctor for question of a hyperpigmentation of his skin which is noticed by 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 On arrival patient is no acute distress, afebrile stable vital signs. Patient does report he has had new dyspnea and generalized fatigue over the past several m onths. He reports intermittent having dark schools but never has appreciated any blood or gross melena. He reports he has a history of colonic fissures. Rectal exam today did not demonstrate any stool, melena, or blood. Hemoglobin today in the emergency department is 6.6 and patient was consented and ordered for 2 units of PRBCs. Additionally ordered for tickborne illness work-up given the patient does have dogs and who frequently go out hiking with the patient's . CT of the pelvis demonstrates possible findings consistent with colitis though patient does not report abdominal pain and only had diarrhea today . Blood cultures ordered and empiric dose of IV doxycycline for possible tickborne etiology. Case was discussed with Dr. Andres, [facility] hospitalist, who will evaluate the patient for admission. Impression & Plan Symptomatic anemia, Pancytopenia, Thrombocytopenia, Leukopenia Critical Care Time Critical Care Time: Yes Total Critical Care Time: 60 I have personally spent 60 minutes of critical care time in the direct management of this patient. This includes bedside care, interpretation of diagnostic studies, and testing, discussion with consultants, patient, and family members, and other required patient management activities. This 60 minutes is in excess of all separately billable procedures. Discharge Plan Visit Data *Final* Discharge Date/Time: 10/19/18 23:06 Chief Complaint: Abnormal Labs/Diagnostic Testing Stated Complaint: SENT FOR BLOOD TRANSFUSION ED Provider: Varinder Garces Discharge Problem: Symptomatic anemia, Pancytopenia, Thrombocytopenia, Leukopenia Patient Disposition: Admitted As Inpatient Discharge Instructions Interventions: ED Discharge Assessment Last Done: 10/19/18 23:06 Discharge Problem: Leukopenia Qualifiers: Leukopenia type: unspecified Qualified Code(s): D72.819 - Decreased white blood cell count, unspecified The scribe's documentation has been prepared under my direction and personally reviewed by me in its entirety. I confirm that the note above accurately reflects all work, treatment, procedures, and medical decision making performed by me.
[2018-10-19] MEDS ORDERED: ACETAMINOPHEN 1,000 MG/100 ML VIAL IV PRN (23:22)
--- NOTE | 2018-10-20 07:46 | Hospitalist Progress Note ---
Date of Service October 20, 2018 Assessment & Plan (1) Dyspnea on exertion: Pt is a 73yo gentleman with a PMHx of GERD, HTN, HLD, BPH, and chronic low back and neck pain presenting with symptoms of dyspnea on exertion and melena. Melena -Pt states he has been having black stools for the last week -Hgb of 6 noted on admission with microcytic anemia. -Has a Hx of being scoped by Dr. Toth in the past; states his last EGD was within the last year. -States they noted a gastric polyp which was nonconcerning. Hx of GERD and takes omeprazole but No Hx of ulcers. -Last colonoscopy was in the last 4 years, no concerns -Pt states he uses a baby aspirin daily along with Excedrin sporadically for his chronic back pain. Last Excedrin dose was yesterday. -No alcohol use in the last 5 years -will start on Pepcid, given NPO status hold home omeprazole -continue fluids Pancytopenia -Pt with pancytopenia as well -DDx includes Myelodysplastic Syndrome vs. acute infection such as anaplasmosis/erlichiosis vs. other -Lyme, anaplasmosis titers ordered by ED, patient started on doxycycline -Peripheral smear pending Dyspnea on Exertion -Likely secondary to GI Bleed has improved with hydration and transfusion -currently on room air and saturating well -supplement O2 as needed GERD -hold home omeprazole, since taking p.o. will have on twice daily Protonix -On Pepcid IV for GI bleed HTN -currently well controlled -Hold home med of nifidepine overnight HLD Typically takes atorvastatin BPH -He takes tamsulosin Chronic Low back pain -Tylenol 1000mg PRN DVT prophylaxis: SCDs CODE STATUS: Full Dispo: Med Surg with Tele Subjective Patient has no complaints or problems. He is feeling somewhat better than when he presented after his transfusion. Patient denies having any confirmed tick exposure although he does have pets at home. Patient also denies risk factors for peptic ulcer disease although having history of a gastric polyp and did present with melena. This however would not explain his pancytopenia only his anemia. Patient had not had any bowel movement since preceding his hospital stay where he had some melena then some profuse diarrhea which is which was not melanotic at that time. Really he is stable without discomfort no epigastric distress Review of Systems Review of Systems: ROS: well nourished well developed. No double vision blurry vision No problems with speech or swallowing No palpitations, chest pain or pressure No Wheezing or breathing issues No abdominal pain nausea vomiting diarrhea changes in appetite or weight No burning urine urine frequency or changes in color No focal joint pain or muscle pain No skin rashes or oral lesions No unusual bruising or bleeding No focused back pain or numbness or loss of strength No changes in memory or confusion Physical Exam Physical Exam: The patient appeared well nourished and normally developed. Vital signs as documented. Head exam is unremarkable. normocephalic, atraumatic Neck is without jugular venous distension, thyromegaly, or lymphademopathy Lungs are clear to auscultation and percussion. Cardiac exam reveals Rhythm is regular. First and second heart sounds normal. Abdominal exam reveals normal bowel sounds, no masses, no organomegaly Extremities are nonedematous and both pedal pulses are present Neurologic exam is A&Ox3, no focal deficits, strength is equal bilateral Psychologically seems neither anxious or depressed Skin is warm Dry Results & Data Vital Signs (Past 12 Hours) Vital Signs Temp Pulse Pulse Resp BP BP Pulse Ox 10/20/18 05:00 36.7 C 65 16 129/79 97 10/20/18 04:00 36.8 C 62 18 122/66 95 10/20/18 03:30 36.8 C 68 20 123/64 96 10/20/18 03:00 36.7 C 68 18 123/64 97 10/20/18 02:45 36.7 C 72 18 150/79 H 98 10/20/18 02:34 36.6 C 66 18 145/75 H 97 10/20/18 01:01 77 10/20/18 00:28 36.6 C 69 16 129/52 L 97 10/19/18 23:23 36.7 C 72 18 153/76 H 100 10/19/18 23:20 36.7 C 72 18 153/76 H 100 10/19/18 23:01 74 19 98 10/19/18 23:00 77 16 143/79 H 98 10/19/18 22:47 120 H 22 89 L 10/19/18 22:45 73 16 136/78 100 10/19/18 22:44 72 21 145/89 H 98 10/19/18 22:41 36.8 C 75 15 145/89 H 80 L 10/19/18 22:30 71 19 99 10/19/18 22:28 36.6 C 74 19 148/80 H 100 10/19/18 22:15 81 20 98 10/19/18 22:05 92 H 18 131/81 97 10/19/18 22:04 84 16 137/81 94 10/19/18 22:03 84 41 H 95 10/19/18 21:45 85 17 99 10/19/18 21:30 65 12 99 10/19/18 21:15 67 14 99 10/19/18 21:00 80 17 155/80 H 10/19/18 20:47 79 21 98 10/19/18 20:34 81 16 100 10/19/18 20:32 79 19 158/86 H 99 10/19/18 20:09 96 10/19/18 19:58 36.5 C 84 18 154/80 H 100 PG Care Time/CCT Total # of Minutes Spent Total Time Spent with Patient: Total time spent is greater than 50% in coordination of care (as documented) at patient's floor/unit and/or counseling patient:
[2018-10-20] MEDS: SODIUM CHLORIDE 0.9% 1000ML 1,000 ML IV SCH ×4 (08:50→23:53)
[2018-10-20] MEDS ORDERED: FAMOTIDINE 20 MG in SYRINGE 3 ML IV SCH (09:00)
[2018-10-20 09:59] LABS: Hematocrit (blood only) 26.5 % (42-52); Hemoglobin 7.9 g/dL (14.0-18.0); Mean Corpuscular Hgb Conc 29.7 g/dL (32-36)
[2018-10-20 10:09] LABS: Hematocrit (blood only) 26.3 % (42-52); Hemoglobin 7.8 g/dL (14.0-18.0); Mean Corpuscular Volume 69.6 fL (80-100); RDW Coefficient of Variation 24.9 % (11.5-14.5); Red Blood Count 3.78 M/uL (4.7-6.1); White Blood Count 4.19 K/uL (4.8-10.8)
[2018-10-20 10:20] LABS: Albumin Level 3.7 gm/dl (3.4-5.0); Calcium 8.2 mg/dl (8.5-10.1); Creatinine Clr Calc Pharmacy 53.7 ml/min; Est GFR (African American) 71.7; Est GFR (Non-African American) 61.9; Potassium 4.1 mmol/L (3.5-5.1)
[2018-10-20 10:23] LABS: Albumin Globulin Ratio 1.2 (0.9-2); Bilirubin,Total 0.6 mg/dl (0.2-1); Globulin 3.1 gm/dl (2.5-4.0); Total Protein 6.8 gm/dl (6.4-8.2)
[2018-10-20 10:50] LABS: Platelet Count 98 K/uL (130-400)
[2018-10-20 10:57] LABS: Anisocytosis Present; Basophils # (auto) 0.02 K/uL (0-0.2); Basophils % (auto) 0.5 %; Eosinophils # (auto) 0.07 K/uL (0-0.5); Eosinophils % (auto) 1.7 %; Hypochromasia Present; Immature Granulocytes # (auto) 0.01 K/uL (0.00-0.02); Immature Granulocytes % (auto) 0.2 %; Lymphocytes # (auto) 0.74 K/uL (1.2-3.4); Lymphocytes % (auto) 17.7 %; Microcytosis Present; Monocytes # (auto) 0.39 K/uL (0.11-0.59); Monocytes % (auto) 9.3 %; Neutrophils # (auto) 2.96 K/uL (1.4-6.5); Neutrophils % (auto) 70.6 %
[2018-10-20 11:44] LABS: Hematocrit (blood only) 26.2 % (42-52); Hemoglobin 7.8 g/dL (14.0-18.0)
[2018-10-20] MEDS ORDERED: PANTOprazole 40 MG TAB PO SCH (15:45)
--- NOTE | 2018-10-20 15:52 | Gastrointestinal Consultation ---
Date of Consultation October 20, 2018 Assessment & Plan (1) Melena: Clinically most consistent with slow UGI bleed. IV protonix limited supply so will use Protonix po bid. Clear liquid diet. This is more of a chronic bleed. Recommend EGD on monday unless he bleeds actively in [facility] case will do urgently. chroonic blood loss anemia---follow H and H and transfuse prn. History of Present Illness Reason for Consultation: GI bleeding Requesting Physician: DR Lisa Pan. Attending Physician: Noe Delacruz MD History of Present Illness CC shortness of breath, dark stools HPI Pt is on daily 81 mg ASA and occos Excedrin. Does take omemprazole for GERD He has had SOB for 6 montht. 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 Went to PCP Hgb 6 and sent to ER. He has been transfuseed with Hgb stable at 7.8 divnr 0922. No abd pain. EGD by DR Toth 12/2017 mult gastric polyps, antral erythema, no specimens. Colonoscoopy 11/2012 sigmoid diverticulosis. A/P CT this admit COPD, gallstones, small HH, diverticulosis. Allergies Allergy/AdvReac Type Severity Reaction Status Date / Time Amoxil TAB Allergy Unknown Uncoded 10/19/18 13:49 Atenolol TABS Allergy Unknown Uncoded 10/19/18 13:49 Home Medications Home Medications Medication Instructions Recorded Confirmed Type atorvastatin 10 mg tablet 10 mg PO DAILY #90 tab 10/17/18 10/19/18 Rx calcium polycarbophil 625 mg tablet 625 mg PO DAILY #60 tab 10/17/18 10/19/18 Rx enalapril maleate 20 mg tablet 20 mg PO DAILY #90 tab 10/19/18 10/19/18 Rx nifedipine 30 mg PO QPM 10/19/18 10/19/18 History omeprazole magnesium 20 mg PO Q OTHER DAY 10/19/18 10/19/18 History ranitidine HCl [Zantac] 150 mg PO Q OTHER DAY 10/19/18 10/19/18 History tamsulosin 0.4 mg PO QPM 10/19/18 10/19/18 History Patient History Medical History Atrial fibrillation BPH (benign prostatic hyperplasia) GERD (gastroesophageal reflux disease) Hypertension No significant past medical history TMJ (temporomandibular joint disorder) Surgical History H/O hernia repair Social History Preferred Language: Armenian Operation Shift 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 Required: No Beliefs That Will Affect Care: None Current Living Situation: Spouse Other Information That Helps Us Care for You: No Feels Safe at Home: Yes Safety Concerns: Feels Safe At This Time Smoking Status: Former smoker Tobacco Type: cigarettes and pipe Smoking End Date: 1984 Hx Alcohol Use: No Hx Substance Use: No Review of Systems Review of Systems: All systems reviewed & are unremarkable except as noted in HPI & below Physical Exam Constitutional: WD/WN, vitals as above Eyes: PERRL, conjunctivae normal, anicteric sclerae ENMT: external ear and nose normal, oropharynx normal Neck: normal visual inspection and trachea midline Respiratory: normal respiratory effort, lungs clear to auscultation Cardiovascular: RRR, no murmur, no edema Gastrointestinal (Abdomen): normal bowel sounds, soft, nontender, no hepatosplenomegaly Neurologic: PERRL, EOMI, accommodation nl, no face palsy, no dysarthria Psychiatric: A+Ox3, euthymic affect Results & Data Vital Signs (Past 12 Hours) Vital Signs Temp Pulse Pulse Resp BP BP Pulse Ox 10/20/18 15:38 36.6 C 60 22 122/50 L 95 10/20/18 11:45 36.7 C 62 18 143/76 H 96 10/20/18 07:47 36.6 C 72 16 147/58 H 97 10/20/18 05:00 36.7 C 65 16 129/79 97 10/20/18 04:00 36.8 C 62 18 122/66 95
[2018-10-20] MEDS ORDERED: OMEPRAZOLE MAGNESIUM 20 MG PO SCH (17:00)
[2018-10-20 17:13] LABS: Hematocrit (blood only) 26.4 % (42-52); Hemoglobin 7.8 g/dL (14.0-18.0)
[2018-10-20] MEDS: TAMSULOSIN HCL 0.4 MG CAP PO SCH (18:00)
[2018-10-20] MEDS: PANTOprazole 40 MG TAB PO SCH (21:18)
[2018-10-20] MEDS: NIFEdipine EXTENDED REL 30 MG TABCR PO SCH (21:19)
[2018-10-21 07:52] LABS: Mean Corpuscular Hgb Conc 29.2 g/dL (32-36)
--- NOTE | 2018-10-21 07:52 | Hospitalist Progress Note ---
Date of Service October 21, 2018 Assessment & Plan (1) Dyspnea on exertion: Pt is a 73yo gentleman with a PMHx of GERD, HTN, HLD, BPH, and chronic low back and neck pain presenting with symptoms of dyspnea on exertion and melena. Melena -Pt states he has been having black stools for the last week -Hgb of 6 noted on admission with microcytic anemia. Has been stable since transfusion this is clearly acute blood loss anemia -Has a Hx of being scoped by Dr. Toth in the past; states his last EGD was within the last year. -States they noted a gastric polyp which was nonconcerning. Hx of GERD and takes omeprazole but No Hx of ulcers. Plans for endoscopy early in the week -Last colonoscopy was in the last 4 years, no concerns -Pt states he uses a baby aspirin daily along with Excedrin sporadically for his chronic back pain. Last Excedrin dose was yesterday. -No alcohol use in the last 5 years -will start on Pepcid, Pancytopenia -Pt with pancytopenia as well -DDx includes Myelodysplastic Syndrome vs. acute infection such as anapl asmosis/erlichiosis vs. other -Lyme, anaplasmosis titers ordered by ED, patient started on doxycycline Dyspnea on Exertion -Likely secondary to GI Bleed has improved with hydration and transfusion -Resolved as currently on room air and saturating well -supplement O2 as needed GERD -hold home omeprazole, since taking p.o. will have on twice daily Protonix -On Pepcid IV for GI bleed HTN -currently well controlled nifidepine HLD Typically takes atorvastatin BPH -He takes tamsulosin Chronic Low back pain -Tylenol 1000mg PRN DVT prophylaxis: SCDs CODE STATUS: Full Dispo: Med Surg with Tele Subjective Patient is absolutely no complaints or problems at this point time plans for possible endoscopy early this week he did read his CT report which mentions emphysema and brought some concern is he does have a smoking history although his oxygen saturation and respiratory mechanics are normal I encouraged him to follow-up with his primary care physician for consideration of pulmonary fun ction testing Review of Systems Review of Systems: ROS: well nourished well developed. No double vision blurry vision No problems with speech or swallowing No palpitations, chest pain or pressure No Wheezing or breathing issues No abdominal pain nausea vomiting diarrhea changes in appetite or weight No burning urine urine frequency or changes in color No focal joint pain or muscle pain No skin rashes or oral lesions No unusual bruising or bleeding No focused back pain or numbness or loss of strength No changes in memory or confusion Physical Exam Physical Exam: The patient appeared well nourished and normally developed. Vital signs as documented. Head exam is unremarkable. normocephalic, atraumatic Neck is without jugular venous distension, thyromegaly, or lymphademopathy Lungs are clear to auscultation and percussion. Cardiac exam reveals Rhythm is regular. First and second heart sounds normal. Abdominal exam reveals normal bowel sounds, no masses, no organomegaly Extremities are nonedematous and both pedal pulses are present Neurologic exam is A&Ox3, no focal deficits, strength is equal bilateral Psychologically seems neither anxious or depressed Skin is warm Dry Results & Data Vital Signs (Past 12 Hours) Vital Signs Temp Pulse Pulse Resp BP Pulse Ox 10/21/18 07:26 36.4 C L 72 18 136/71 99 10/21/18 02:54 36.7 C 74 16 127/70 98 10/20/18 23:28 66 10/20/18 23:06 36.7 C 64 18 124/68 99 PG Care Time/CCT Total # of Minutes Spent Total Time Spent with Patient: Total time spent is greater than 50% in coordination of care (as documented) at patient's floor/unit and/or counseling patient:
[2018-10-21 07:55] LABS: Hematocrit (blood only) 28.4 % (42-52); Hemoglobin 8.3 g/dL (14.0-18.0); Mean Corpuscular Volume 69.6 fL (80-100); RDW Coefficient of Variation 24.5 % (11.5-14.5); RDW Standard Deviation 62.3 fL (36.4-46.3); Red Blood Count 4.08 M/uL (4.7-6.1); White Blood Count 3.97 K/uL (4.8-10.8)
[2018-10-21 08:22] LABS: Anisocytosis Present; Basophils # (auto) 0.04 K/uL (0-0.2); Eosinophils # (auto) 0.18 K/uL (0-0.5); Eosinophils % (auto) 4.5 %; Hypochromasia Present; Immature Granulocytes # (auto) 0.02 K/uL (0.00-0.02); Immature Granulocytes % (auto) 0.5 %; Lymphocytes # (auto) 0.97 K/uL (1.2-3.4); Lymphocytes % (auto) 24.4 %; Microcytosis Present; Monocytes # (auto) 0.45 K/uL (0.11-0.59); Monocytes % (auto) 11.3 %; Neutrophils # (auto) 2.31 K/uL (1.4-6.5); Neutrophils % (auto) 58.3 %
[2018-10-21] MEDS: SODIUM CHLORIDE 0.9% 1000ML 1,000 ML IV SCH ×3 (08:22→23:36)
[2018-10-21] MEDS: PANTOprazole 40 MG TAB PO SCH ×2 (08:23→21:14)
[2018-10-21] MEDS: ATORVASTATIN 10 MG TAB PO SCH (08:24)
[2018-10-21] MEDS: CALCIUM POLYCARBOPHIL 625MG TAB PO SCH (08:24)
[2018-10-21 08:32] LABS: Albumin Level 3.8 gm/dl (3.4-5.0); BUN Creatinine Ratio 8.9 (10-20); Calcium 8.5 mg/dl (8.5-10.1); Creatinine Clr Calc Pharmacy 54.6 ml/min; Est GFR (African American) 73.3; Est GFR (Non-African American) 63.2
[2018-10-21 08:35] LABS: Albumin Globulin Ratio 1.1 (0.9-2); Bilirubin,Total 0.7 mg/dl (0.2-1); Globulin 3.4 gm/dl (2.5-4.0); Total Protein 7.2 gm/dl (6.4-8.2)
[2018-10-21 08:55] LABS: Platelet Count 111 K/uL (130-400)
[2018-10-21] MEDS ORDERED: POLYETHYLENE GLYCOL 3350 238 GM BTL PO ONE (15:28)
--- NOTE | 2018-10-21 15:35 | Gastroenterology Progress Note ---
Date of Service October 21, 2018 Assessment & Plan (1) Melena: Clinically most consistent with slow UGI bleed. IV protonix limited supply so will use Protonix po bid. Clear liquid diet. This is more of a chronic bleed. chronic blood loss anemia---follow H and H and transfuse prn. Pt asks whether he might need colonscopy at some point. I told him while melena makes me worry about UGI bleed, I cannot rule out LGI bleed. Therefore plan EGD and colonscopy tomorrow. Procs and risks explained to patient which include but not limited to med reaction, bleeding, perforation, aspiration, and missed lesions. I am going off service tomorrow 10/22/[address] Toth is assuming GI care then. Subjective cc f/u anemia HPI States most recent stool today automatic blocker than at home. NO abd pain. Review of Systems Respiratory: no dyspnea Cardiovascular: no chest pain Physical Exam Constitutional: WD/WN, vitals as above Respiratory: normal respiratory effort, lungs clear to auscultation Cardiovascular: RRR, no murmur, no edema Gastrointestinal (Abdomen): normal bowel sounds, soft, nontender, no hepatosplenomegaly Psychiatric: A+Ox3, euthymic affect Results & Data Vital Signs (Past 12 Hours) Vital Signs Temp Pulse Pulse Resp BP Pulse Ox 10/21/18 15:20 36.3 C L 73 21 113/68 100 10/21/18 11:23 36.5 C 68 18 124/72 98 10/21/18 08:42 67 10/21/18 07:26 36.4 C L 72 18 136/71 99
[2018-10-21] MEDS: TAMSULOSIN HCL 0.4 MG CAP PO SCH (17:56)
[2018-10-21] MEDS: NIFEdipine EXTENDED REL 30 MG TABCR PO SCH (21:14)
[2018-10-22 07:29] LABS: Mean Corpuscular Hgb Conc 29.1 g/dL (32-36)
[2018-10-22] MEDS: ATORVASTATIN 10 MG TAB PO SCH (07:29)
[2018-10-22] MEDS: SODIUM CHLORIDE 0.9% 1000ML 1,000 ML IV SCH ×3 (07:29→23:41)
[2018-10-22] MEDS: PANTOprazole 40 MG TAB PO SCH ×2 (07:30→20:56)
[2018-10-22 07:37] LABS: Hematocrit (blood only) 26.8 % (42-52); Hemoglobin 7.8 g/dL (14.0-18.0); Mean Corpuscular Volume 71.3 fL (80-100); RDW Coefficient of Variation 24.8 % (11.5-14.5); RDW Standard Deviation 63.7 fL (36.4-46.3); Red Blood Count 3.76 M/uL (4.7-6.1); White Blood Count 3.12 K/uL (4.8-10.8)
[2018-10-22 07:57] LABS: Albumin Level 3.4 gm/dl (3.4-5.0); BUN Creatinine Ratio 6.2 (10-20); Calcium 8.3 mg/dl (8.5-10.1); Creatinine Clr Calc Pharmacy 59.4 ml/min; Est GFR (Non-African American) 69.9; Potassium 3.5 mmol/L (3.5-5.1)
[2018-10-22 08:00] LABS: Albumin Globulin Ratio 1.1 (0.9-2); Bilirubin,Total 0.5 mg/dl (0.2-1); Globulin 3.1 gm/dl (2.5-4.0); Total Protein 6.5 gm/dl (6.4-8.2)
[2018-10-22 08:19] LABS: Anisocytosis Present; Basophils # (auto) 0.03 K/uL (0-0.2); Eosinophils # (auto) 0.22 K/uL (0-0.5); Eosinophils % (auto) 7.1 %; Hypochromasia Present; Lymphocytes # (auto) 0.67 K/uL (1.2-3.4); Lymphocytes % (auto) 21.5 %; Microcytosis Present; Monocytes # (auto) 0.44 K/uL (0.11-0.59); Monocytes % (auto) 14.1 %; Neutrophils # (auto) 1.76 K/uL (1.4-6.5); Neutrophils % (auto) 56.3 %; Platelet Count 114 K/uL (130-400); Platelet Estimate Normal (Normal)
[2018-10-22 08:52] LABS: White Blood Count 4.37 K/uL (4.8-10.8)
[2018-10-22] MEDS ORDERED: LIDOCAINE HCL 2% 2 ML VIAL/AMP(20MG/ML) INFIL ONE (14:30)
[2018-10-22] MEDS ORDERED: PROPOFOL IV EMULSION 10 MG/ML 20 ML VIAL IV ONE ×2 (14:30→14:34)
--- NOTE | 2018-10-22 14:31 | History & Physical Report ---
Date of Service October 22, 2018 History of Present Illness Chief Complaint: Anemia, melena Primary Care Provider: Tali Lan MD For EGD and colonoscopy Allergies Allergy/AdvReac Type Severity Reaction Status Date / Time amoxicillin Allergy Unknown Verified 10/22/18 14:24 atenolol Allergy Unknown Verified 10/22/18 14:24 Home Medications Home Medications Medication Instructions Recorded Confirmed Type atorvastatin 10 mg tablet 10 mg PO DAILY #90 tab 10/17/18 10/19/18 Rx calcium polycarbophil 625 mg tablet 625 mg PO DAILY #60 tab 10/17/18 10/19/18 Rx enalapril maleate 20 mg tablet 20 mg PO DAILY #90 tab 10/19/18 10/19/18 Rx nifedipine 30 mg PO QPM 10/19/18 10/19/18 History omeprazole magnesium 20 mg PO Q OTHER DAY 10/19/18 10/19/18 History ranitidine HCl [Zantac] 150 mg PO Q OTHER DAY 10/19/18 10/19/18 History tamsulosin 0.4 mg PO QPM 10/19/18 10/19/18 History Past Med/Surg History Medical History Atrial fibrillation BPH (benign prostatic hyperplasia) GERD (gastroesophageal reflux disease) Hypertension No significant past medical history TMJ (temporomandibular joint disorder) Surgical History H/O hernia repair Social History Preferred Language: Turkmen Garment Turner Required: No Beliefs That Will Affect Care: None Current Living Situation: Spouse Other Information That Helps Us Care for You: No Feels Safe at Home: Yes Safety Concerns: Feels Safe At This Time Smoking Status: Former smoker Tobacco Type: cigarettes and pipe Smoking End Date: 1984 Hx Alcohol Use: No Hx Substance Use: No Physical Exam Constitutional: well developed and well nourished Respiratory: normal respiratory effort Cardiovascular: Rate/Rhythm: regular rate and regular rhythm Gastrointestinal (Abdomen): Percussion/Palpation: abdomen soft Results & Data Vital Signs (Past 12 Hours) Vital Signs Temp Pulse Resp BP Pulse Ox 10/22/18 11:37 36.5 C 62 20 127/66 97 10/22/18 07:41 36.8 C 81 16 143/76 H 98 10/22/18 03:26 36.6 C 72 16 124/72 96
--- NOTE | 2018-10-22 14:33 | Anesthesiology Consultation ---
Date of Service October 22, 2018 Assessment & Plan Chart Review Chart Review: Acceptable Risk for Surgery and Patient NOT seen in Pre Admission Testing Consults Requested none History Surgery Operation Date: 10/22/18 09:15 Proposed Procedures p Colonoscopy EGD Dr Navneet Toth Height/Weight Height: 5 ft 8 in Weight: 78.5 kg Allergies Allergy/AdvReac Type Severity Reaction Status Date / Time amoxicillin Allergy Unknown Verified 10/22/18 14:24 atenolol Allergy Unknown Verified 10/22/18 14:24 Medications Home Medications Medication Instructions Recorded Confirmed Last Taken atorvastatin 10 mg tablet 10 mg PO DAILY #90 tab 10/17/18 10/19/18 10/19/18 calcium polycarbophil 625 mg tablet 625 mg PO DAILY #60 tab 10/17/18 10/19/18 10/19/18 enalapril maleate 20 mg tablet 20 mg PO DAILY #90 tab 10/19/18 10/19/18 10/19/18 nifedipine 30 mg PO QPM 10/19/18 10/19/18 10/18/18 omeprazole magnesium 20 mg PO Q OTHER DAY 10/19/18 10/19/18 10/18/18 ranitidine HCl [Zantac] 150 mg PO Q OTHER DAY 10/19/18 10/19/18 10/19/18 tamsulosin 0.4 mg PO QPM 10/19/18 10/19/18 10/18/18 Active Medications Generic Name Dose Route Start Last Admin Trade Name Freq PRN Reason Stop Dose Admin Atorvastatin Calcium 10 mg 10/21/18 09:00 10/22/18 07:29 Lipitor PO 11/20/18 08:59 10 mg DAILY RITO Administration Calcium Polycarbophil 1 tab 10/21/18 09:00 10/21/18 08:24 Fibercon PO 11/20/18 08:59 1 tab DAILY RITO Administration Sodium Chloride 1,000 mls @ 125 mls/hr 10/19/18 23:45 10/22/18 07:29 Nss 1000ml IV 11/18/18 23:44 125 mls/hr .Q8H RITO Administration Ioversol 95 ml 10/19/18 21:57 10/19/18 21:57 Optiray 320 100ml IV 10/23/18 21:56 95 ml ONCE PRN Administration Interaction Checking Nifedipine 30 mg 10/20/18 21:00 10/21/18 21:14 Procardia Xl PO 11/19/18 20:59 30 mg QPM RITO Administration Pantoprazole Sodium 40 mg 10/20/18 21:00 10/22/18 07:30 Protonix PO 11/19/18 20:59 40 mg BID RITO Administration Ranitidine HCl 150 mg 10/21/18 09:00 10/21/18 08:23 Zantac PO 11/20/18 08:59 150 mg Q2D RITO Administration Tamsulosin HCl 0.4 mg 10/20/18 17:30 10/21/18 17:56 Flomax PO 11/19/18 17:29 0.4 mg DAILY@1730 RITO Administration NPO Date Last Intake of Fluids: 10/22/18 Time Last Intake of Fluids: 23:55 Last Intake of Fluids Comment: sip with meds at 729 Date Last Intake of Solids: 10/19/18 Time Last Intake of Solids: 15:00 Past Medical History Medical History Atrial fibrillation BPH (benign prostatic hyperplasia) GERD (gastroesophageal reflux disease) Hypertension No significant past medical history TMJ (temporomandibular joint disorder) Past Surgical History Surgical History H/O hernia repair Social History Smoking Status: Former smoker tobacco type: cigarettes and pipe Smoking End Date: 1984 Hx Alcohol Use: No Hx Substance Use: No Physical Exam Vital Signs Last Vital Signs Temp 36.5 C 10/22/18 11:37 Pulse 62 10/22/18 11:37 Resp 20 10/22/18 11:37 BP 127/66 10/22/18 11:37 Pulse Ox 97 10/22/18 11:37 Testing Laboratory Results 10/22/18 06:56 10/22/18 06:56 PT 11.1 Seconds (9.0-12.0) 10/19/18 20:20 INR 1.1 (0.9-1.1) 10/19/18 20:20 APTT 22.5 Seconds (21.0-31.0) 10/19/18 20:20 Blood Type A Positive 10/19/18 20:20 Antibody Screen NEGATIVE 10/19/18 20:20 10/20/18 09:22 Aerobic Blood Culture - Preliminary Blood No growth in Aerobic bottle after 48 hours. Anaerobic Blood Culture - Preliminary No growth in Anaerobic bottle after 48 hours. 10/20/18 09:50 Aerobic Blood Culture - Preliminary Blood No growth in Aerobic bottle after 48 hours. Anaerobic Blood Culture - Final
[2018-10-22] MEDS ORDERED: ATROPINE SULFATE 0.1 MG/ML 10ML SYR IV PRN (14:36)
[2018-10-22] MEDS ORDERED: ePHEDrine sulfate 50 MG/ML AMP IV PRN (14:36)
--- NOTE | 2018-10-22 14:52 | Anesthesiology Progress Note ---
Date of Service October 22, 2018 Anesthesia Post Procedure Vital Signs Vital Signs: Temp Pulse Pulse Resp BP Pulse Ox 10/22/18 14:30 36.7 C 66 16 123/61 97 10/22/18 11:37 36.5 C 62 20 127/66 97 10/22/18 07:41 36.8 C 81 16 143/76 H 98 10/22/18 03:26 36.6 C 72 16 124/72 96 10/21/18 23:35 60 10/21/18 22:32 36.5 C 61 18 130/73 98 10/21/18 18:33 36.4 C L 65 16 148/74 H 99 10/21/18 15:20 36.3 C L 73 21 113/68 100 Transfer of Care Handoff Completed per policy Notes Mental Status: alert / awake / arousable Patient Amnestic to Procedure: Yes Nausea / Vomiting: adequately controlled Pain: adequately controlled Airway Patency, RR, SpO2: stable & adequate BP & HR: stable & adequate Hydration State: stable & adequate Anesthetic Complications: no major complications apparent and Pt Satisfied with anesthetic care
--- NOTE | 2018-10-22 15:07 | Hospitalist Progress Note ---
Date of Service October 22, 2018 Assessment & Plan (1) Dyspnea on exertion: Pt is a 73yo gentleman with a PMHx of GERD, HTN, HLD, BPH, and chronic low back and neck pain presenting with symptoms of dyspnea on exertion and melena. Melena -Pt states he has been having black stools for the last week -Hgb of 6 noted on admission with microcytic anemia. Has been stable since transfusion this is clearly acute blood loss anemia -Has a Hx of being scoped by Dr. Toth in the past; states his last EGD was within the last year. -States they noted a gastric polyp which was nonconcerning. Hx of GERD and takes omeprazole but No Hx of ulcers. Plans for endoscopy 10/22 -Last colonoscopy was in the last 4 years, no concerns -Pt states he uses a baby aspirin daily along with Excedrin sporadically for his chronic back pain. Last Excedrin dose was yesterday. -No alcohol use in the last 5 years - on Pepcid, Pancytopenia -Pt with pancytopenia as well this is been stable without much up or down despite treated with doxycycline may benefit from future evaluation with oncology -DDx includes Myelodysplastic Syndrome vs. acute infection such as anaplasmosis/erlichiosis vs. other -Lyme, anaplasmosis titers ordered by ED, patient started on doxycycline Dyspnea on Exertion -Likely secondary to GI Bleed has improved with hydration and transfusion -Resolved as currently on room air and saturating well -CT scan his abdomen shows some emphysema the bases of his lungs however the patient did not have any additional dyspnea since his hemoglobin is been near the 8 range May benefit from outpatient point function testing as he does have a distant smoking history GERD -hold home omeprazole, since taking p.o. will have on twice daily Protonix -On Pepcid IV for GI bleed HTN -currently well controlled nifidepine HLD Typically takes atorvastatin BPH -He takes tamsulosin Chronic Low back pain -Tylenol 1000mg PRN DVT prophylaxis: SCDs CODE STATUS: Full Subjective Patient is anxiously awaiting his upper endoscopy otherwise has been stable condition no complaints or problems otherwise Review of Systems Review of Systems: ROS: well nourished well developed. No double vision blurry vision No problems with speech or swallowing No palpitations, chest pain or pressure No Wheezing or breathing issues No abdominal pain nausea vomiting diarrhea changes in appetite or weight No burning urine urine frequency or changes in color No focal joint pain or muscle pain No skin rashes or oral lesions No unusual bruising or bleeding No focused back pain or numbness or loss of strength No changes in memory or confusion Physical Exam Physical Exam: The patient appeared well nourished and normally developed. Vital signs as documented. Head exam is unremarkable. normocephalic, atraumatic Neck is without jugular venous distension, thyromegaly, or lymphademopathy Lungs are clear to auscultation and percussion. Cardiac exam reveals Rhythm is regular. First and second heart sounds normal. Abdominal exam reveals normal bowel sounds, no masses, no organomegaly Extremities are nonedematous and both pedal pulses are present Neurologic exam is A&Ox3, no focal deficits, strength is equal bilateral Psychologically seems neither anxious or depressed Skin is warm Dry without bruises or lesions Results & Data Vital Signs (Past 12 Hours) Vital Signs Temp Pulse Resp BP Pulse Ox 10/22/18 14:30 36.7 C 66 16 123/61 97 10/22/18 11:37 36.5 C 62 20 127/66 97 10/22/18 07:41 36.8 C 81 16 143/76 H 98 10/22/18 03:26 36.6 C 72 16 124/72 96 PG Care Time/CCT Total # of Minutes Spent Total Time Spent with Patient: Total time spent is greater than 50% in coordination of care (as documented) at patient's floor/unit and/or counseling patient:
--- NOTE | 2018-10-22 15:12 | GI REPORT ---
Patient Name: Benigno Shay Procedure Date: 10/22/2018 2:44 PM Date of : 1945 Admit Type: Inpatient Age: 73 Gender: Male Attending MD: Felipe Toth MD Procedure: Upper GI endoscopy Providers: Felipe Toth MD Referring MD: Tali Lan Indications: Acute post hemorrhagic anemia Medicines: Propofol total dose 220 mg IV, Lidocaine 60 mg IV Complications: No immediate complications. Estimated Blood Loss: Estimated blood loss: none. Procedure: Pre-Anesthesia Assessment: - Prior to the procedure, a History and Physical was performed, and patient medications, allergies and sensitivities were reviewed. The patient's tolerance of previous anesthesia was reviewed. - The risks and benefits of the procedure and the sedation options and risks were discussed with the patient. All questions were answered and informed consent was obtained. After obtaining informed consent, the endoscope was passed under direct vision. Throughout the procedure, the patient's blood pressure, pulse, and oxygen saturations were monitored continuously. The Endoscope was introduced through the mouth, and advanced to the third part of duodenum. The upper GI endoscopy was accomplished without difficulty. The patient tolerated the procedure well. Findings: The Z-line was regular and was found 36 cm from the incisors. Small (< 5 mm) varices were found in the upper third of the esophagus. They were 5 mm in largest diameter. Estimated blood loss: none. Multiple 4 mm semi-sessile polyps with no bleeding and no stigmata of recent bleeding were found in the gastric body. Localized mildly erythematous mucosa without bleeding was found in the gastric antrum. The duodenal bulb, second portion of the duodenum and third portion of the duodenum were normal. Impression: - Z-line regular, 36 cm from the incisors. - Small (< 5 mm) esophageal varices. - Multiple gastric polyps. - Erythematous mucosa in the antrum. - Normal duodenal bulb, second portion of the duodenum and third portion of the duodenum. - No specimens collected. Recommendation: - [facility]. Felipe Toth M.D. Felipe Toth MD 10/22/2018 3:11:31 PM This report has been signed electronically. Note Initiated On: 10/22/2018 2:44 PM Number of Addenda: 0 I attest to the content of the Intraoperative Record and orders documented therein, exceptions below {[id number]}
--- NOTE | 2018-10-22 15:14 | GI REPORT ---
Patient Name: Benigno Shay Procedure Date: 10/22/2018 2:43 PM Date of : 1945 Admit Type: Inpatient Age: 73 Gender: Male Attending MD: Felipe Toth MD Procedure: Colonoscopy Providers: Felipe Toth MD Referring MD: Noe Kaur Indications: Melena, Acute post hemorrhagic anemia Medicines: Propofol total dose 220 mg IV, Lidocaine 60 mg IV Complications: No immediate complications. Estimated Blood Loss: Estimated blood loss: none. Procedure: Pre-Anesthesia Assessment: - Prior to the procedure, a History and Physical was performed, and patient medications, allergies and sensitivities were reviewed. The patient's tolerance of previous anesthesia was reviewed. - The risks and benefits of the procedure and the sedation options and risks were discussed with the patient. All questions were answered and informed consent was obtained. - The risks and benefits of the procedure and the sedation options and risks were discussed with the patient. All questions were answered and informed consent was obtained. After I obtained informed consent, the scope was passed under direct vision. Throughout the procedure, the patient's blood pressure, pulse, and oxygen saturations were monitored continuously. The Scope was introduced through the anus and advanced to the terminal ileum. The colonoscopy was performed without difficulty. The patient tolerated the procedure well. The quality of the bowel preparation was good. Findings: Multiple diverticula were found in the sigmoid colon. The terminal ileum appeared normal. Impression: - Diverticulosis in the sigmoid colon. - The examined portion of the ileum was normal. - No specimens collected. Recommendation: - [facility] care. Felipe Toth M.D. Felipe Toth MD 10/22/2018 3:14:27 PM This report has been signed electronically. Note Initiated On: 10/22/2018 2:43 PM Number of Addenda: 0 I attest to the content of the Intraoperative Record and orders documented therein, exceptions below {[id number]}
--- NOTE | 2018-10-22 16:26 | Progress Note ---
DATE: 10/22/2018 The patient has not had any more melenic stools. Vital signs are normal. He is stable. His hemoglobin is 7.8 after 2 units of blood up from 6. MCV is low at 71.3. He underwent EGD and colonoscopy today. 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 He had some benign gastric polyps in the body of the stomach and some mild antral erythema. The duodenum into the third portion was normal. There were no signs of any source for bleeding in the upper endoscopy. His colonoscopy showed some sigmoid diverticulosis that was also found in 2013, but no signs of bleeding. Terminal ileum was also entered and was normal. IMPRESSION AND PLAN: The patient is having melena with anemia which is significant. No source of bleeding is found on upper or lower endoscopy today. I would recommend if it shows signs of any further active bleeding to do a bleeding scan. If his bleeding stops and he remains stable, we can pursue an outpatient video capsule to look at the small intestine for potential source of blood loss.
[2018-10-22] MEDS: TAMSULOSIN HCL 0.4 MG CAP PO SCH (18:04)
[2018-10-22] MEDS: CALCIUM POLYCARBOPHIL 625MG TAB PO SCH (18:05)
[2018-10-22] MEDS: NIFEdipine EXTENDED REL 30 MG TABCR PO SCH (20:56)
[2018-10-23 07:31] LABS: Mean Corpuscular Hgb Conc 29.3 g/dL (32-36)
[2018-10-23 07:39] LABS: Hematocrit (blood only) 25.6 % (42-52); Hemoglobin 7.5 g/dL (14.0-18.0); Mean Corpuscular Volume 71.3 fL (80-100); RDW Standard Deviation 64.4 fL (36.4-46.3); Red Blood Count 3.59 M/uL (4.7-6.1)
[2018-10-23] MEDS: SODIUM CHLORIDE 0.9% 1000ML 1,000 ML IV SCH ×4 (07:47→18:20)
[2018-10-23 08:05] LABS: Mean Platelet Volume 9.6 fL (7.4-10.4); Platelet Count 126 K/uL (130-400)
[2018-10-23 08:06] LABS: Basophils # (auto) 0.02 K/uL (0-0.2); Basophils % (auto) 0.6 %; Eosinophils # (auto) 0.24 K/uL (0-0.5); Eosinophils % (auto) 7.1 %; Giant Platelets 1+; Hypochromasia Present; Immature Granulocytes # (auto) 0.01 K/uL (0.00-0.02); Immature Granulocytes % (auto) 0.3 %; Lymphocytes # (auto) 0.64 K/uL (1.2-3.4); Lymphocytes % (auto) 18.8 %; Monocytes # (auto) 0.31 K/uL (0.11-0.59); Monocytes % (auto) 9.1 %; Neutrophils # (auto) 2.18 K/uL (1.4-6.5); Neutrophils % (auto) 64.1 %; Ovalocytes 1+; Platelet Estimate Normal (Normal); Toxic Granulation 1+
[2018-10-23 08:07] LABS: Albumin Level 3.3 gm/dl (3.4-5.0); Calcium 8.1 mg/dl (8.5-10.1); Creatinine Clr Calc Pharmacy 62.4 ml/min; Est GFR (Non-African American) 74.2; Potassium 3.3 mmol/L (3.5-5.1)
[2018-10-23 08:10] LABS: Albumin Globulin Ratio 1.1 (0.9-2); Bilirubin,Total 0.4 mg/dl (0.2-1); Total Protein 6.3 gm/dl (6.4-8.2)
[2018-10-23] MEDS: ATORVASTATIN 10 MG TAB PO SCH (08:10)
[2018-10-23] MEDS: PANTOprazole 40 MG TAB PO SCH ×2 (08:11→20:59)
[2018-10-23] MEDS: CALCIUM POLYCARBOPHIL 625MG TAB PO SCH (09:00)
--- NOTE | 2018-10-23 11:17 | Hospitalist Progress Note ---
Date of Service October 23, 2018 Assessment & Plan (1) Dyspnea on exertion: Pt is a 73yo gentleman with a PMHx of GERD, HTN, HLD, BPH, and chronic low back and neck pain presenting with symptoms of dyspnea on exertion and melena. Melena Anemia from acute blood loss Studies confirmed iron def. anemia. Patient had negative upper and lower GI scope. Blleding appears to have stopped as he has not had multiple stools for the past few days. D/W Gi: will recheck hemoglobin in afternoon. Will place patient on iron tablets for now. -Hgb of 6 noted on admission with microcytic anemia. Has been stable since transfusion this is clearly acute blood loss anemia -Has a Hx of being scoped by Dr. Toth in the past; states his last EGD was within the last year. -States they noted a gastric polyp which was nonconcerning. Hx of GERD and takes omeprazole but No Hx of ulcers. Plans for endoscopy 10/22 -Last colonoscopy was in the last 4 years, no concerns -Pt states he uses a baby aspirin daily along with Excedrin sporadically for his chronic back pain. Last Excedrin dose was yesterday. -No alcohol use in the last 5 years - on Pepcid, Pancytopenia -Pt with pancytopenia as well this is been stable without much up or down despite treated with doxycycline may benefit from future evaluation with oncology -DDx includes Myelodysplastic Syndrome vs. acute infection such as anaplasmosis/erlichiosis vs. other -Lyme, anaplasmosis titers ordered by ED, patient started on doxycycline -Thrombocytopenia appears to be improving. -Will monitor Dyspnea on Exertion -Likely secondary to GI Bleed has improved with hydration and transfusion -Resolved as currently on room air and saturating well -CT scan his abdomen shows some emphysema the bases of his lungs however the patient did not have any additional dyspnea since his hemoglobin is been near the 8 range May benefit from outpatient pulmonary function testing as he does have a distant smoking histor/ however, anemia would explain his symptoms.y GERD -hold home omeprazole, since taking p.o. will have on twice daily Protonix -On Pepcid IV for GI bleed HTN -currently well controlled nifidepine HLD Typically takes atorvastatin BPH -He takes tamsulosin Chronic Low back pain -Tylenol 1000mg PRN DVT prophylaxis: SCDs CODE STATUS: Full Spent 45 minutes in management of patient. Subjective 73 yo male reports feeling well. He has no new complaints today. He is asking to be discharged soon. He reports no stools since Monday. Review of Systems Review of Systems: All systems reviewed & are unremarkable except as noted in HPI & below Physical Exam Physical Exam: The patient appeared well nourished and normally developed. Vital signs as documented. Head exam is unremarkable. normocephalic, atraumatic Neck is without jugular venous distension, thyromegaly, or lymphademopathy Lungs are clear to auscultation and percussion. Cardiac exam reveals Rhythm is regular. First and second heart sounds normal. Abdominal exam reveals normal bowel sounds, no masses, no organomegaly Extremities are nonedematous and both pedal pulses are present Neurologic exam is A&Ox3, no focal deficits, strength is equal bilateral Psychologically seems neither anxious or depressed Skin is warm Dry without bruises or lesions Results & Data Vital Signs (Past 12 Hours) Vital Signs Temp Pulse Pulse Resp BP Pulse Ox 10/23/18 07:27 36.4 C L 89 16 106/63 97 10/23/18 07:24 63 10/23/18 04:07 36.4 C L 74 21 128/72 97 10/23/18 01:00 61 10/23/18 00:00 36.7 C 69 20 125/65 96 PG Care Time/CCT Total # of Minutes Spent Total Time Spent with Patient: Total time spent is greater than 50% in coordination of care (as documented) at patient's floor/unit and/or counseling patient:
[2018-10-23] MEDS: FERROUS SULFATE 325 MG TAB PO SCH ×2 (13:55→18:05)
[2018-10-23 16:29] LABS: Hematocrit (blood only) 25.2 % (42-52); Hemoglobin 7.6 g/dL (14.0-18.0)
[2018-10-23] MEDS: TAMSULOSIN HCL 0.4 MG CAP PO SCH (18:06)
[2018-10-23] MEDS: NIFEdipine EXTENDED REL 30 MG TABCR PO SCH (20:59)
[2018-10-23 21:41] LABS: Ehrlichia chaff DNA Bld Not Detected (Not Detected)
[2018-10-24] MEDS: SODIUM CHLORIDE 0.9% 1000ML 1,000 ML IV SCH ×3 (00:42→13:09)
--- NOTE | 2018-10-24 03:25 | Progress Note ---
DATE: 10/23/2018 SUBJECTIVE: The patient reports no bowel movements today. No nausea or vomiting, no visible blood loss. He reports no abdominal pain. His hemoglobin has dropped slightly today to 7.6 from 7.8 yesterday. This could still be within the range of equilibration. His EGD and colonoscopy yesterday did not reveal any obvious source for blood loss. The plan is for any active bleeding to get a bleeding scan and if he continues to remain stable, to do a video capsule as an outpatient to rule out any other potential cause for anemia in the digestive tract. Of note is that his white count and platelet count are also low indicating a possible bone marrow dysfunction. PHYSICAL EXAMINATION: GENERAL: The patient appears in no acute distress. VITAL SIGNS: Normal. He is afebrile. GENERAL: He is alert, awake and completely conversant. IMPRESSION: The patient's blood count dropped slightly today. We will plan on watching him overnight again and rechecking the blood count in the morning. If he remains stable, we will schedule him for a video capsule as an outpatient. If that is negative, then he may need a more extensive hematologic evaluation by location director.
[2018-10-24 06:17] LABS: Anisocytosis Present; Basophils # (auto) 0.02 K/uL (0-0.2); Basophils % (auto) 0.6 %; Eosinophils % (auto) 8.7 %; Giant Platelets 1+; Hematocrit (blood only) 25.2 % (42-52); Hemoglobin 7.4 g/dL (14.0-18.0); Hypochromasia Present; Lymphocytes % (auto) 23.3 %; Mean Corpuscular Hgb Conc 29.4 g/dL (32-36); Mean Corpuscular Volume 71.6 fL (80-100); Monocytes # (auto) 0.31 K/uL (0.11-0.59); Neutrophils % (auto) 58.4 %; Ovalocytes 1+; Platelet Count 141 K/uL (130-400); Platelet Estimate Normal (Normal); Poikilocytosis Present; RDW Coefficient of Variation 25.7 % (11.5-14.5); RDW Standard Deviation 66.6 fL (36.4-46.3); Red Blood Count 3.52 M/uL (4.7-6.1); White Blood Count 3.43 K/uL (4.8-10.8)
[2018-10-24 06:26] LABS: Albumin Level 3.2 gm/dl (3.4-5.0); BUN Creatinine Ratio 11.5 (10-20); Calcium 8.1 mg/dl (8.5-10.1); Creatinine Clr Calc Pharmacy 60.5 ml/min; Est GFR (African American) 82.9; Est GFR (Non-African American) 71.6; Potassium 3.6 mmol/L (3.5-5.1)
[2018-10-24 06:32] LABS: Albumin Globulin Ratio 1.1 (0.9-2); Bilirubin,Total 0.3 mg/dl (0.2-1); Total Protein 6.2 gm/dl (6.4-8.2)
[2018-10-24] MEDS: PANTOprazole 40 MG TAB PO SCH (08:12)
[2018-10-24] MEDS: FERROUS SULFATE 325 MG TAB PO SCH ×2 (08:12→12:30)
[2018-10-24] MEDS: ATORVASTATIN 10 MG TAB PO SCH (08:12)
[2018-10-24] MEDS: CALCIUM POLYCARBOPHIL 625MG TAB PO SCH (08:12)
[2018-10-24] MEDS ORDERED: SODIUM CHLORIDE 0.9% 250 ML IV PRN (10:30)
[2018-10-24 15:49] LABS: Hematocrit (blood only) 29.9 % (42-52); Hemoglobin 8.9 g/dL (14.0-18.0)
--- NOTE | 2018-10-24 16:03 | Progress Note ---
DATE: 10/24/2018 The patient remains asymptomatic with no obvious bleeding. His stools kind of a yellow green color from his oral iron, but there is no obvious blood. His hemoglobin continued to drop again today to 7.4 which is about two-tens of a gram below yesterday, which was two-tens of a gram below the day before. He was transfused an additional unit of blood today. The plan was to do a video capsule as an outpatient or a bleeding scan for overt signs of bleeding, but he has none of those. His white count is low and his platelet count is just barely into the normal range indicating a possible bone marrow disorder. I have discussed the condition with his and the patient, and Dr. Frye, the hospitalist and the plan will be to discharge him today with a hematology consult as an outpatient and will go ahead and schedule a video capsule as well as an outpatient to rule out any potential GI source of anemia.
[2018-10-24 19:18] LABS: Ehrlichia chaff IgG Ab <1:64 (<1:64); Ehrlichia chaff IgM Ab <1:20 (<1:20); Haptoglobin 141 MG/DL (43-212); RMSF IgG Ab Not Detected (Not Detected); RMSF IgM Ab Not Detected (Not Detected)
--- NOTE | 2018-10-24 23:56 | Discharge Summary ---
Date of Service October 24, 2018 Admission HPI Per Admitting Provider For EGD and colonoscopy Principal Diagnosis Symptomatic iron def. anemia Discharge Exam The patient appeared well nourished and normally developed. Vital signs as documented. Head exam is unremarkable. normocephalic, atraumatic Neck is without jugular venous distension, thyromegaly, or lymphademopathy Lungs are clear to auscultation and percussion. Cardiac exam reveals Rhythm is regular. First and second heart sounds normal. Abdominal exam reveals normal bowel sounds, no masses, no organomegaly Extremities are nonedematous and both pedal pulses are present Neurologic exam is A&Ox3, no focal deficits, strength is equal bilateral Psychologically seems neither anxious or depressed Skin is warm Dry without bruises or lesions Discharge Data Allergies Allergy/AdvReac Type Severity Reaction Status Date / Time amoxicillin Allergy Unknown Verified 10/22/18 14:24 atenolol Allergy Unknown Verified 10/22/18 14:24 Consultations 10/19/18 22:24 ED Decision to Admit Stat 10/19/18 23:22 Consult Gastroenterology Stat Procedures Performed Operation Date: 10/22/18 09:15 Actual Procedures p Esophagogastroduodenoscopy - Felipe Toth s Colonoscopy - Felipe Toth Ordered Studies 10/19/18 20:35 CT abd pelvis IV con only Stat Hospital Course (1) Dyspnea on exertion: Pt is a 73yo gentleman with a PMHx of GERD, HTN, HLD, BPH, and chronic low back and neck pain presenting with symptoms of dyspnea on exertion and melena. Melena Anemia from acute blood loss Studies confirmed iron def. anemia. Patient had negative upper and lower GI scope. Blleding appears to have stopped as he has not had multiple stools for the past few days. D/W Gi: will recheck hemoglobin in afternoon. Will place patient on iron tablets for now. -Hgb of 6 noted on admission with microcytic anemia. Has been stable since transfusion this is clearly acute blood loss anemia -Has a Hx of being scoped by Dr. Toth in the past; states his last EGD was within the last year. -States they noted a gastric polyp which was nonconcerning. Hx of GERD and takes omeprazole but No Hx of ulcers. Scopes were negative. -Last colonoscopy was in the last 4 years, no concerns -Pt states he uses a baby aspirin daily along with Excedrin sporadically for his chronic back pain. Last Excedrin dose was yesterday. -No alcohol use in the last 5 years - on Pepcid,. Will discharge patient on iron tablets and will have patient check hemoglobin once a week. It appears his anemia was mainly driven by his GI bleed, benito will have pa arun followup with Hem/ and onc as an outpatient He will have a capsule endoscopy. Pancytopenia -Pt with pancytopenia as well this is been stable without much up or down despite treated with doxycycline may benefit from future evaluation with oncology -DDx includes Myelodysplastic Syndrome vs. acute infection such as anaplasmosis/erlichiosis vs. other -Lyme, anaplasmosis titers ordered by ED, patient started on doxycycline -Thrombocytopenia appears to be improving. Will discharge off doxy. Labs have been negative for tick borne infection Dyspnea on Exertion -Likely secondary to GI Bleed has improved with hydration and transfusion -Resolved as currently on room air and saturating well -CT scan his abdomen shows some emphysema the bases of his lungs however the patient did not have any additional dyspnea since his hemoglobin is been near the 8 range May benefit from outpatient pulmonary function testing as he does have a distant smoking histor/ however, anemia would explain his symptoms.y GERD -hold home omeprazole, since taking p.o. will have on twice daily Protonix -Was On Pepcid IV for GI bleed will discharge PPI. BID HTN -currently well controlled nifidepine HLD Typically takes atorvastatin BPH -He takes tamsulosin Chronic Low back pain -Tylenol 1000mg PRN DVT prophylaxis: SCDs CODE STATUS: Full Total Time Total Time Spent Total Time Spent (In Minutes): 35 Total Time Includes: Examination of the Patient, Discharge Planning and Medication Reconciliation Discharge Plan Discharge Items Patient Disposition: Home - Self-Care Reason For Visit: DYSPNEA ON EXERTION Discharge Diagnosis: Anemia mainly from GI blood loss Discharge Goals: Decrease discomfort Activity: Resume your previous activity Non-emergency contact: Primary Care Provider Call non-emergency contact if: you have any medication questions Follow-up/Referrals: Tali Lan MD [Primary Care Provider] - 10/30/18 10:00 am (Please, follow up at [facility] with Dr. Lan on MondayOctober 30 at 10:00 am. *If you need to change this appointment, call the office at [phone].) Diet: Regular Addtl Provider Instructions: You were seen for low blood count. Your red blood cells were low. It appears this was likely from GI blood loss as your iron studies point towards GI blood loss. However, you also have low platelets and White blood cells, whic also may point towards a production problem. During your stay though, your platelets improved. GI states that they would like for you to be evaluated by hematology. Gi will also set up a cpasule endoscopy. We will recommend continuing on iron tablets and to check you hemoglobin weekly. Prescriptions: New ferrous sulfate 325 mg (65 mg iron) Tablet,Delayed Release (Dr/Ec) 325 mg PO TIDM Qty: 90 RF: 0 pantoprazole 40 mg Tablet,Delayed Release (Dr/Ec) 40 mg PO BID Qty: 60 RF: 0 Continued calcium polycarbophil [Fiber-Tabs] 625 mg tablet 625 mg PO DAILY Qty: 60 RF: 0 atorvastatin 10 mg tablet 10 mg PO DAILY Qty: 90 RF: 3 ranitidine HCl [Zantac] 150 mg Tablet 150 mg PO Q OTHER DAY RF: 0 nifedipine 30 mg tablet extended release 24hr 30 mg PO QPM RF: 0 tamsulosin 0.4 mg capsule 0.4 mg PO QPM RF: 0 Discontinued enalapril maleate 20 mg tablet 10 mg PO DAILY Qty: 90 RF: 1 omeprazole magnesium 20 mg capsule,delayed release(DR/EC) 20 mg PO Q OTHER DAY RF: 0 Stand-Alone Forms: [facility] Discharge Orders: Discharge Order (Routine); Ordered 10/24/18 Ordered By: Oh Frye Admission Data Admit Date/Time: 10/19/18 22:23 Attending Provider: Oh Frye Admit Provider: Lisa Pan Primary Care Provider: Tali Lan Other Providers: Joselo Andres ; Felipe Toth Service: Telemetry Medical Other Interventions: Discharge Summary Assessment (RN) Last Done: 10/24/18 15:37 DC Date/Time DO NOT enter until pt leaves facility: 10/24/18 16:12
== END 2018-10-24 16:12 | disposition home or self-care (01) | DRG 378 ==
LOC: ED 19:56 → 2N 22:23 → SUATTDRO 22:23 → 2N 23:06

== ENCOUNTER 2024-01-11 15:51 | Inpatient (IN) ==
--- NOTE | 2024-01-11 16:33 | XRay Report ---
XR chest 1V not portable CLINICAL HISTORY: Chest pain, nonspecific TECHNIQUE: Single frontal radiograph of the chest was obtained. Comparison: Comparison is made to chest radiograph 12/26/2023 FINDINGS: No lines and tubes are seen. Cardiomegaly is noted. Reticular interstitial opacities are seen. No jose dence of pleural effusion or pneumothorax. IMPRESSION: No acute abnormalities are seen. ACT 112: Negative or not required by law. Electronically signed by: Brian Ashton M.D. 01/11/2024 4:31 PM
[2024-01-11 16:44] LABS: Albumin Globulin Ratio 1.6 (0.9-2); Albumin Level 3.9 gm/dl (3.4-5.0); BUN Creatinine Ratio 31.7 (10-20); Bilirubin,Total 0.5 mg/dl (0.2-1.0); Calcium 8.7 mg/dl (8.6-10.3); Globulin 2.4 gm/dl (2.5-4.0); Potassium 4.1 mmol/L (3.5-5.1); Total Protein 6.3 gm/dl (6.0-8.3)
[2024-01-11 16:47] LABS: Basophils # (auto) 0.02 K/uL (0.00-0.20); Basophils % (auto) 0.6 %; Eosinophils # (auto) 0.05 K/uL (0.00-0.50); Eosinophils % (auto) 1.6 %; Hematocrit (blood only) 24.9 % (42.0-52.0); Hemoglobin 7.9 g/dl (14.0-18.0); Immature Granulocytes # (auto) 0.03 K/uL (0.01-0.20); Immature Granulocytes % (auto) 0.9 %; Lymphocytes # (auto) 0.99 K/uL (1.20-3.40); Mean Corpuscular Hemoglobin 31.2 pg (25.0-34.0); Mean Corpuscular Hgb Conc 31.7 g/dL (32.0-36.0); Mean Corpuscular Volume 98.4 fL (80.0-100.0); Mean Platelet Volume 10.4 fL (9.4-12.4); Monocytes # (auto) 0.26 K/uL (0.11-0.59); Monocytes % (auto) 8.2 %; Neutrophils # (auto) 1.84 K/uL (1.40-6.50); Neutrophils % (auto) 57.7 %; Platelet Count 123 K/uL (130-400); Polychromasia 1+; RDW Coefficient of Variation 15.7 % (11.5-14.5); RDW Standard Deviation 55.7 fL (36.4-46.3); Red Blood Count 2.53 M/uL (4.70-6.10); White Blood Count 3.19 K/ul (4.8-10.8)
[2024-01-11 16:50] LABS: Troponin I High Sensitivity 7.4 pg/ml (0-20)
[2024-01-11 16:54] LABS: INR 1.1 (0.9-1.1); Partial Thromboplastin Ratio 0.9; Partial Thromboplastin Time 24 Seconds (21-31); Prothrombin Time 11.5 Seconds (9.0-12.0)
--- NOTE | 2024-01-11 17:08 | Emergency Department Note ---
Impression & Plan SOB (shortness of breath), Anemia, History of gastrointestinal bleeding, Abnormal chest CT ED Provider Note NAME: MARIA DERAS Jr AGE: 78 SEX: M : 1945 ARRIVES VIA: Walk-In INFORMANT: [Patient] ED PROVIDER(S): [Paco Mcgrath MD] CHIEF COMPLAINT: Shortness of breath HISTORY OF PRESENT ILLNESS: The patient is an 78-year-old male who has been dyspneic for about a month. His doctors office was able to do an outpatient x-ray and they placed him on 2 different antibiotics for pneumonia. He finished this up about a week ago and feels no different. He has not had fever, he has had a slight cough but he states he does have some baseline lung disease so the cough is not all that unusual. No vomiting or diarrhea. The patient was sent for the possibility of PE, he has never had a PE, no long trips by car plane or train. PMHx/PSHx/Social Hx: See Below PHYSICAL EXAM: GENERAL: Patient is in no acute distress. HEENT: No acute trauma, normocephalic atraumatic, mucous membranes moist, no nasal congestion. NECK: No stridor, no adenopathy, no meningismus, trachea is midline. LUNGS: Clear to auscultation bilaterally, no wheeze, no rhonchi, breath sounds equal. HEART: 3/6 to 4/6 systolic murmur, regular rate and rhythm. ABDOMEN: Soft, nontender, no peritonitis. EXTREMITIES: No cyanosis, full range of motion of all the joints without pain or difficulty. NEUROLOGIC: Oriented x 3, no acute motor or sensory deficits, no focal weakness. SKIN: No jaundice, no diaphoresis. Rectal: Trace heme positive. Very trace stool was available for testing. DIFFERENTIAL DIAGNOSIS: Anemia, pneumonia, CHF, electrolyte imbalance, NV, PE, among others. EMERGENCY DEPARTMENT PROCEDURES: MEDICAL DECISION MAKING: There is no leukocytosis. The patient is anemic, this is a 4 point drop for him. I did perform a rectal exam and the stool was very trace heme positive as noted above. The platelet count was a bit low at 123. Tick testing was done, Babesia and anaplasmosis smears were negative. There is no coagulopathy. No renal failure or significant electrolyte abnormality. BNP was not elevated making CHF unlikely. There was no concerning liver enzyme elevation. ECG showed a sinus rhythm, no ST elevation. Cardiac enzyme testing x 1 was not consistent with acute cardiac injury. Chest x-ray shows some chronic findings. Chest CT showed a potential area of congestion in the right lower lung. There was no PE. On exam, the patient was not hypoxic or toxic. The patient received IV Protonix, this was given for potential upper GI bleeding. The patient presents with shortness of breath for a month. He has lost about 4 points of hemoglobin. I do believe the anemia is responsible for the majority of his dyspnea. He needs further GI workup in the hospital. He did sign consent for a blood transfusion although, blood was not administered as his value was above 7. Patient may have a subtle pneumonia or bronchitis on top of his anemia. He did not improve with 2 different antibiotics outpatient. I spoke to the patient, I spoke to case management, the on-call hospitalist was consulted. Prior/Outside records/notes reviewed: None ECG per my interpretation: Indication was shortness of breath. The ECG shows a sinus rhythm with a PAC and a PVC. The rate was 90. There was no acute ST elevation. There was some poor R wave progression. QTc was 477. Continuous Cardiac Monitoring per my interpretation: An order was placed for continuous cardiac monitoring. The monitor shows a rate of 91 with normal sinus rhythm. Imaging/x-ray results per my interpretation: Chest x-ray shows some chronic change, I see no focal pneumonia, no pneumothorax. Chronic Medical/Social conditions affecting care: Advanced age. Care/Management discussed with: Case management, the on-call hospitalist. Level of care consideration(s): After review of the information above and other included data: --I believe the patient requires escalation of care to admission DISPOSITION: Admission Past Med/Surg History Problem List (Updated 01/11/24 @ 20:56 by Paco Mcgrath MD) Abnormal chest CT (Acute) History of gastrointestinal bleeding (Acute) Anemia (Acute) SOB (shortness of breath) (Acute) Emphysema lung Rectal bleeding Laceration of left thumb Anemia Pain of left thumb Prostate cancer (Chronic) Skipped beats BPH with obstruction/lower urinary tract symptoms Hypothyroidism Diverticulosis Cataract Lung nodule seen on C-spine XR Cholelithiasis Osteopenia Vitamin D deficiency Impaired fasting glucose Iron deficiency anemia (Chronic) Esophageal varices (Chronic) Mild acid reflux (Acute) Cervicalgia (Acute) Erectile dysfunction (Acute) Hearing loss (Acute) Hyperlipidemia (Acute) Hypertension (Acute) Phimosis (Acute) GERD (gastroesophageal reflux disease) Leukopenia (Acute) Low back pain Medical History Esophageal varices BPH (benign prostatic hyperplasia) Rectal bleeding Hypothyroidism GERD (gastroesophageal reflux disease) History of prostate cancer diagnosed--02/24/22--brachytherapy Proctitis Cervical arthritis limited ROM per patient History of iron deficiency anemia hx of transfusions within the year (2023) Premature ventricular contractions no cards Raynaud's disease Per records TMJ (temporomandibular joint disorder) No issues since surgical intervention Surgical History History of esophagogastroduodenoscopy (EGD) History of brachytherapy History of cataract surgery History of colonoscopy History of surgery H/O hernia repair Family History Uncle Ruptured thoracic aortic aneurysm Other Hypertension No family history of adverse response to anesthesia Denies family history of Ovarian cancer Prostate cancer Myocardial infarction Breast cancer Colorectal cancer Social History Smoking Status: Former smoker Tobacco Type: Cigarettes and Pipe Age Started Using Tobacco: 14; Age Quit Using Tobacco: 38; Second Hand Exposure: No; Do You Dip or Chew Tobacco: No; Hx Alcohol Use: No Hx Substance Use: No Preferred Language: [place] Communication Ability: Effective Visual Impairment: Limited Hearing Ability: Use of Hearing Aid Adjunct Faculty Required: No Beliefs That Will Affect Care: None marital status: Current Living Situation: Spouse current occupational status: retired How many Children do You have: 4 Feels Safe at Home: Yes Childhood Exposure to Second-Hand Smoke: Yes Diet: regular caffeine: Yes during the past year weight has: remained stable Dental Care, Regularly: Yes Physical Activity Frequency: Daily Seatbelt Use: always Sunscreen Use: Yes Assistive Devices: Denture - Upper, Denture - Lower, Glasses and Hearing Aid - Bilateral Allergies Allergies Allergy/AdvReac Type Severity Reaction Status Date / Time amoxicillin AdvReac Mild Diarrhea Verified 01/11/24 07:58 atenolol AdvReac Mild Diarrhea Verified 01/11/24 07:58 Home Meds Home Medications Medication Instructions Recorded Confirmed calcium polycarbophil 625 mg 625 mg PO BID 11/13/19 01/11/24 tablet (Fiber-Tabs) ferrous sulfate 325 mg (65 mg 325 mg PO QPM 11/13/19 01/11/24 iron) tablet (iron) multivitamin 1 tab PO QAM 03/31/22 01/11/24 vitamin E mixed 400 unit capsule 400 unit PO QAM 02/03/23 01/11/24 latanoprost 0.005 % eye drops 1 drp OPR HS 01/11/24 01/11/24 levothyroxine 50 mcg tablet 50 mcg PO DAILYBB 01/11/24 01/11/24 Previous Rx's Medication Instructions Recorded nifedipine 30 mg tablet,extended 30 mg PO QPM #90 tabs 04/20/23 release 24 hr atorvastatin 10 mg tablet 10 mg PO QAM #90 tabs 05/31/23 mirabegron 50 mg tablet,extended 50 mg PO QPM #90 tabs 10/02/23 release 24 hr (Myrbetriq) tamsulosin 0.4 mg capsule 0.8 mg (2 x 0.4 mg) PO QPM 11/30/23 frequency #90 caps esomeprazole magnesium 20 mg 20 mg PO QPM #90 caps 12/26/23 capsule,delayed release (Nexium 24HR) Results & Data (ED) Vital Signs Vital Signs - 24 hr 01/11/24 15:56 01/11/24 15:56 01/11/24 16:13 Temperature 36.8 C Temperature Source Skin Pulse Rate 94 H Pulse Rate from SpO2 Sensor Respiratory Rate 20 Respiratory Effort / Characteristics Non-Labored Spontaneous Non-Labored Spontaneous Respiratory Depth Normal Normal Respiratory Pattern Regular Regular Blood Pressure 127/69 Blood Pressure Mean 88 Pulse Oximetry 98 Oxygen Delivery Method Room Air Room Air Room Air Sepsis Recent Fever Within 48 Hours No Sepsis New/Unexplained Change in Mental Status N/A Sepsis Action Taken by Nursing No Action Required 01/11/24 16:13 01/11/24 16:14 01/11/24 16:16 Temperature Temperature Source Pulse Rate 91 H Pulse Rate from SpO2 Sensor Respiratory Rate Respiratory Effort / Characteristics Respiratory Depth Respiratory Pattern Blood Pressure Blood Pressure Mean Pulse Oximetry 100 99 Oxygen Delivery Method Room Air Room Air Room Air Sepsis Recent Fever Within 48 Hours Sepsis New/Unexplained Change in Mental Status Sepsis Action Taken by Nursing 01/11/24 16:18 01/11/24 17:45 01/11/24 17:54 Temperature Temperature Source Pulse Rate 88 91 H 86 Pulse Rate from SpO2 Sensor 92 H 89 86 Respiratory Rate 17 13 19 Respiratory Effort / Characteristics Respiratory Depth Respiratory Pattern Blood Pressure 136/86 120/70 Blood Pressure Mean 102 86 Pulse Oximetry 97 98 93 Oxygen Delivery Method Sepsis Recent Fever Within 48 Hours Sepsis New/Unexplained Change in Mental Status Sepsis Action Taken by Nursing 01/11/24 18:03 Temperature Temperature Source Pulse Rate 99 H Pulse Rate from SpO2 Sensor Respiratory Rate 13 Respiratory Effort / Characteristics Respiratory Depth Respiratory Pattern Blood Pressure 131/76 Blood Pressure Mean 94 Pulse Oximetry 96 Oxygen Delivery Method Room Air Sepsis Recent Fever Within 48 Hours Sepsis New/Unexplained Change in Mental Status Sepsis Action Taken by [facility] Medications Current Medication List: was personally reviewed by me Laboratory Data Attestation: I reviewed the patient's lab results. 01/11/24 16:07 01/11/24 16:07 Lab Results 01/11/24 01/11/24 01/11/24 Range/Units 16:07 17:37 18:45 WBC 3.19 L (4.8-10.8) K/ul RBC 2.53 L (4.70-6.10) M/uL Hgb 7.9 L (14.0-18.0) g/dl Hct 24.9 L (42.0-52.0) % MCV 98.4 (80.0-100.0) fL MCH 31.2 (25.0-34.0) pg MCHC 31.7 L (32.0-36.0) g/dL RDW Std Deviation 55.7 H (36.4-46.3) fL RDW Coeff of Joesph 15.7 H (11.5-14.5) % Plt Count 123 L (130-400) K/uL MPV 10.4 (9.4-12.4) fL Immature Gran % (Auto) 0.9 % Neut % (Auto) 57.7 % Lymph % (Auto) 31.0 % [place] % (Auto) 8.2 % Eos % (Auto) 1.6 % Baso % (Auto) 0.6 % Neut # (Auto) 1.84 (1.40-6.50) K/uL Lymph # (Auto) 0.99 L (1.20-3.40) K/uL [place] # (Auto) 0.26 (0.11-0.59) K/uL Eos # (Auto) 0.05 (0.00-0.50) K/uL Baso # (Auto) 0.02 (0.00-0.20) K/uL Immature Gran # (Auto) 0.03 (0.01-0.20) K/uL Polychromasia 1+ PT 11.5 (9.0-12.0) Seconds INR 1.1 (0.9-1.1) APTT 24 (21-31) Seconds PTT Ratio 0.9 Sodium 136 (136-145) mmol/L Potassium 4.1 (3.5-5.1) mmol/L Chloride 106 (98-107) mmol/L Carbon Dioxide 23 (21-32) mmol/L Anion Gap 7 (3-11) BUN 32 H (6-23) mg/dl Creatinine 1.01 (0.6-1.4) mg/dl Est Cr Clr Drug Dosing 62.0 ml/min eGFR 75.18 BUN/Creatinine Ratio 31.7 H (10-20) Glucose 92 (70-99(Fasting)) mg/dl Calcium 8.7 (8.6-10.3) mg/dl Total Bilirubin 0.5 (0.2-1.0) mg/dl AST 23 (13-39) U/L ALT 15 (7-52) U/L Alkaline Phosphatase 43 (34-104) U/L Troponin I High Sens 7.4 (0-20) pg/ml B-Natriuretic Peptide 67 (0-100) pg/ml Total Protein 6.3 (6.0-8.3) gm/dl Albumin 3.9 (3.4-5.0) gm/dl Globulin 2.4 L (2.5-4.0) gm/dl Albumin/Globulin Ratio 1.6 (0.9-2) Anaplasma Smear See Comment Babesia Smear See Comment Blood Type A Positive Antibody Screen NEGATIVE Administered Medications Discontinued Medications Pantoprazole Sodium 80 mg/ (Dextrose) 120 mls @ 400 mls/hr IV NOW ONE Stop: 01/11/24 18:49 Last Infusion: 01/11/24 20:12 Dose: Infused Documented By: Admin: 01/11/24 19:50 Dose: 400 mls/hr Documented By: CADEN Ioversol (Optiray 320 125ml) 119 ml IV ONCE ONE Stop: 01/11/24 17:13 Last Admin: 01/11/24 17:13 Dose: 119 ml Documented By: PLW Imaging Data Radiologist's Impression: Chest X-Ray 01/11/24 16:13 XR chest 1V not portable CLINICAL HISTORY: Chest pain, nonspecific TECHNIQUE: Single frontal radiograph of the chest was obtained. Comparison: Comparison is made to chest radiograph 12/26/2023 FINDINGS: No lines and tubes are seen. Cardiomegaly is noted. Reticular interstitial opacities are seen. No evidence of pleural effusion or pneumothorax. IMPRESSION: No acute abnormalities are seen. ACT 112: Negative or not required by law. Electronically signed by: Brian Ashton M.D. 01/11/2024 4:31 PM Chest CTA 01/11/24 16:17 CT angio chest PE protocol CLINICAL HISTORY: PE TECHNIQUE: Multidetector row helical CT of the chest was performed with angiographic protocol. Coronal and sagittal reformations were obtained. Coronal and sagittal MIPS were obtained from the axial data set and were submitted for review. Automated dose lowering techniques and/or adjustment according to patient size were utilized for this exam. CT DOSE: 918.4 mGy.cm Comparison: Comparison is made to chest radiographs 01/11/2024 FINDINGS: Lungs and pleura: Small bilateral pleural effusions are seen. Emphysema and interstitial thickening are noted. There is a 25 mm nodular density in the right lung base with adjacent tree in bud nodules. Heart and pericardium: Heart size is normal. No pericardial effusion. Vessels: No evidence of pulmonary embolism. Moderate atherosclerotic disease is seen. Mediastinum and shania: Right hilar nodes measure up to 15 mm. Mediastinal lymph nodes measure up to 16 mm. A subcarinal node measures up to 17 years. Scattered additional enlarged lymph nodes are seen. Chest wall and lower neck: Unremarkable. Abdomen: A hiatal hernia is seen. Multiple gallstones are seen without evidence of acute cholecystitis. Bones: Degenerative changes in the thoracic spine. IMPRESSION: 1. No pulmonary embolus. 2. Density in the right lower lobe with associated tree in bud nodularity is favored to represent infectious/inflammatory process, however short-term follow- up is recommended to exclude underlying mass. 3. Small bilateral pleural effusions with interstitial edema. ACT 112: Negative or not required by law. Electronically signed by: Brian Ashton M.D. 01/11/2024 5:23 PM Discharge Plan Visit Data Chief Complaint: Shortness of Breath/Dyspnea Stated Complaint: BLOOD CLOT LUNG, SOB ED Provider: Paco Mcgrath Discharge Problem: SOB (shortness of breath), Anemia, History of gastrointestinal bleeding, Abnormal chest CT Patient Disposition: Admitted As Inpatient Condition: Fair Forms Stand Alone Forms: My [facility] [employer] Prescriptions Prescriptions: No Action multivitamin Tablet 1 tab PO QAM vitamin E mixed 400 unit capsule 400 unit PO QAM nifedipine 30 mg tablet extended release 24hr 30 mg PO QPM Qty: 90 3RF atorvastatin 10 mg tablet 10 mg PO QAM Qty: 90 3RF Myrbetriq 50 mg tablet extended release 24 hr 50 mg PO QPM Qty: 90 4RF tamsulosin 0.4 mg capsule 0.8 mg PO QPM Qty: 90 1RF Rx Instructions: 2 CAPSULES after supper esomeprazole magnesium [Nexium 24HR] 20 mg capsule,delayed release(DR/EC) 20 mg PO QPM Qty: 90 3RF calcium polycarbophil [Fiber-Tabs] 625 mg tablet 625 mg PO BID ferrous sulfate [iron] 325 mg (65 mg iron) Tablet 325 mg PO QPM latanoprost 0.005 % drops 1 drp OPR HS levothyroxine 50 mcg tablet 50 mcg PO DAILYBB Referrals Referrals: Zack Aaron DO [Primary Care Provider] - Discharge Problem: Anemia Qualifiers: Anemia type: unspecified type Qualified Code(s): D64.9 - Anemia, unspecified
[2024-01-11] MEDS: OPTIRAY 320 125ml IV ONE (17:13)
--- NOTE | 2024-01-11 17:25 | CT Scan Report ---
CT angio chest PE protocol CLINICAL HISTORY: PE TECHNIQUE: Multidetector row helical CT of the chest was performed with angiographic protocol. Prater l and sagittal reformations were obtained. Coronal and sagittal MIPS were obtained from the axial pauline a set and were submitted for review. Automated dose lowering techniques and/or adjustment according to patient size were utilized for this exam. CT DOSE: 918.4 mGy.cm Comparison: Comparison is made to chest radiographs 01/11/2024 FINDINGS: Lungs and pleura: Small bilateral pleural effusions are seen. Emphysema and interstitial thickening a re noted. There is a 25 mm nodular density in the right lung base with adjacent tree in bud nodules. Heart and pericardium: Heart size is normal. No pericardial effusion. Vessels: No evidence of pulmonary embolism. Moderate atherosclerotic disease is seen. Mediastinum and shania: Right hilar nodes measure up to 15 mm. Mediastinal lymph nodes measure up to 16 mm. A subcarinal node measures up to 17 years. Scattered additional enlarged lymph nodes are seen. Chest wall and lower neck: Unremarkable. Abdomen: A hiatal hernia is seen. Multiple gallstones are seen without evidence of acute cholecystiti s. Bones: Degenerative changes in the thoracic spine. IMPRESSION: 1. No pulmonary embolus. 2. Density in the right lower lobe with associated tree in bud nodularity is favored to represent in fectious/inflammatory process, however short-term follow-up is recommended to exclude underlying mass . 3. Small bilateral pleural effusions with interstitial edema. ACT 112: Negative or not required by law. Electronically signed by: Brian Ashton M.D. 01/11/2024 5:23 PM
[2024-01-11] MEDS: PANTOprazole 80 MG in DEXTROSE 5% 100 ML IV ONE (19:50)
[2024-01-11] MEDS ORDERED: ALBUT/IPRATROP 3MG/0.5MG NEB 3 ML VIAL NEB PRN (20:15)
--- NOTE | 2024-01-11 20:25 | History & Physical Report ---
Date of Service January 11, 2024 Assessment & Plan (1) Anemia: (2) History of gastrointestinal bleeding: (3) Pneumonia involving right lung: (4) Emphysema lung: (5) Prostate cancer: (6) Esophageal varices: (7) Hyperlipidemia: (8) Hypertension: (9) History of prostate cancer: (10) History of brachytherapy: Plan Symptomatic anemia/history of GI bleeding/bright red blood per rectum/history of esophageal varices- N.p.o. Admit to monitored bed Hemoglobin 7.9 on admission, with base 12.1 Heme positive in the ED H&H every 6 hours Type and screen ordered, with transfusion consent signed Given pantoprazole 80 mg IV in ED, and will continue 40 mg IV every 12 hours Patient has had multiple recent studies including EGD, colonoscopy, and capsule endoscopy Acetaminophen 1 g IV every 8 hours as needed for mild pain or fever NSS + KCl 20 mill equivalents at 80 mL/h x 1 L Consult gastroenterology Pneumonia involving right lower lobe- CTA chest negative for PE MRSA swab Zosyn 4.5 g IV every 8 hours DuoNeb every 2 hours as needed Follow-up CT recommended by radiology to verify no underlying mass Prostate cancer with LUTS- Continue mirabegron and tamsulosin History of Present Illness Chief Complaint: The patient presents to the emergency department with report of being short of breath for about 1 month been on antibiotics for pneumonia, that he completed 1 week ago. He reports that he has a baseline cough that is slightly worse. He has also been more fatigued. Primary Care Provider: Zack Aaron DO The patient is an 78-year-old male with a past medical history including history of GI bleed, lung emphysema, prostate cancer status post radiation 1 year ago, LUTS, GERD, hyperlipidemia, iron deficiency, hypothyroidism and hypertension. He presents to the emergency department with symptoms as noted above. He was also referred to the ED due to outpatient concerns regarding a possible PE. Allergies Allergy/AdvReac Type Severity Reaction Status Date / Time amoxicillin AdvReac Mild Diarrhea Verified 01/11/24 07:58 atenolol AdvReac Mild Diarrhea Verified 01/11/24 07:58 Home Medications Medication Instructions Recorded Confirmed Type calcium polycarbophil 625 mg 625 mg PO BID 11/13/19 01/11/24 History tablet (Fiber-Tabs) ferrous sulfate 325 mg (65 mg 325 mg PO QPM 11/13/19 01/11/24 History iron) tablet (iron) multivitamin 1 tab PO QAM 03/31/22 01/11/24 History vitamin E mixed 400 unit capsule 400 unit PO QAM 02/03/23 01/11/24 History nifedipine 30 mg tablet,extended 30 mg PO QPM #90 tabs 04/20/23 01/11/24 Rx release 24 hr atorvastatin 10 mg tablet 10 mg PO QAM #90 tabs 05/31/23 01/11/24 Rx mirabegron 50 mg tablet,extended 50 mg PO QPM #90 tabs 10/02/23 01/11/24 Rx release 24 hr (Myrbetriq) tamsulosin 0.4 mg capsule 0.8 mg (2 x 0.4 mg) PO QPM 11/30/23 01/11/24 Rx frequency #90 caps esomeprazole magnesium 20 mg 20 mg PO QPM #90 caps 12/26/23 01/11/24 Rx capsule,delayed release (Nexium 24HR) latanoprost 0.005 % eye drops 1 drp OPR HS 01/11/24 01/11/24 History levothyroxine 50 mcg tablet 50 mcg PO DAILYBB 01/11/24 01/11/24 History Past Med/Surg History Problem List (Updated 01/12/24 @ 02:07 by Joselo Andres MD) History of brachytherapy 07/14/22 [facility] History of prostate cancer diagnosed--02/24/22--brachytherapy Pneumonia involving right lung Abnormal chest CT (Acute) History of gastrointestinal bleeding (Acute) Anemia (Acute) SOB (shortness of breath) (Acute) Emphysema lung Rectal bleeding Laceration of left thumb Anemia Pain of left thumb Prostate cancer (Chronic) Skipped beats BPH with obstruction/lower urinary tract symptoms Hypothyroidism Diverticulosis Cataract Lung nodule seen on C-spine XR Cholelithiasis Osteopenia Vitamin D deficiency Impaired fasting glucose Iron deficiency anemia (Chronic) Esophageal varices (Chronic) Mild acid reflux (Acute) Cervicalgia (Acute) Erectile dysfunction (Acute) Hearing loss (Acute) Hyperlipidemia (Acute) Hypertension (Acute) Phimosis (Acute) GERD (gastroesophageal reflux disease) Leukopenia (Acute) Low back pain Medical History Esophageal varices BPH (benign prostatic hyperplasia) Rectal bleeding Hypothyroidism GERD (gastroesophageal reflux disease) History of prostate cancer diagnosed--02/24/22--brachytherapy Proctitis Cervical arthritis limited ROM per patient History of iron deficiency anemia hx of transfusions within the year (2023) Premature ventricular contractions no cards Raynaud's disease Per records TMJ (temporomandibular joint disorder) No issues since surgical intervention Surgical History History of esophagogastroduodenoscopy (EGD) History of brachytherapy History of cataract surgery History of colonoscopy History of surgery H/O hernia repair Family History Uncle Ruptured thoracic aortic aneurysm Other Hypertension No family history of adverse response to anesthesia Denies family history of Ovarian cancer Prostate cancer Myocardial infarction Breast cancer Colorectal cancer Social History Smoking Status: Former smoker Tobacco Type: Cigarettes and Pipe Age Started Using Tobacco: 14; Age Quit Using Tobacco: 38; Second Hand Exposure: No; Do You Dip or Chew Tobacco: No; Hx Alcohol Use: No (quit 1983) Hx Substance Use: No Preferred Language: Faroese Communication Ability: Effective Visual Impairment: Limited Hearing Ability: Use of Hearing Aid Tablet Tester Required: No Beliefs That Will Affect Care: None marital status: Current Living Situation: Spouse current occupational status: retired How many Children do You have: 4 Feels Safe at Home: Yes Childhood Exposure to Second-Hand Smoke: Yes Diet: regular caffeine: Yes during the past year weight has: remained stable Dental Care, Regularly: Yes Physical Activity Frequency: Daily Seatbelt Use: always Sunscreen Use: Yes Assistive Devices: Hearing Aid - Bilateral Review of Systems Review of Systems: The patient denies chest pain, palpitations, lower extremity swelling, sore throat, fevers, chills, sweats, nausea, vomiting, diarrhea , constipation, abdominal pain, pelvic pain, blood in urine or stool, dysuria, urinary frequency or urgency, lightheadedness, dizziness, headache, memory loss, loss of consciousness, rash, abnormal bruising or bleeding, imbalance, focal weakness, numbness or tingling in arms or legs, generalized arthralgias or myalgias, back or neck pain, or night sweats. The review of systems is otherwise negative other than for that already noted above, and at least 10 systems have been reviewed. Physical Exam Physical Exam: The patient is awake, alert and oriented 3, well developed and well nourished, normocephalic and atraumatic, lying in bed and in no acute distress. HEENT--PERRL, EOMI, mucous membranes and oropharynx normal Neck--supple. No JVD. No bruits. Thyroid normal, trachea midline, no adenopathy. Heart--normal S1 and S2. No murmurs, rubs or gallops. Lungs--decreased breath sounds at the bases, right greater than left. No respiratory distress, no accessory muscle use. Abdomen--normal bowel sounds and soft. Nontender. Nondistended Extremities--no cyanosis or clubbing. No edema. Dermatologic--normal skin turgor, normal color, no abnormal lymph nodes, no rash. Neurologic--cranial nerves II through XII grossly intact. Rheumatologic--normal range of motion. Psychiatric--normal affect. Results & Data Results & Data Vital Signs (Past 12 Hours) Vital Signs Temp Pulse Resp BP Pulse Ox O2 Del Method 01/11/24 18:03 99 H 13 131/76 96 Room Air 01/11/24 17:54 86 19 93 01/11/24 17:45 91 H 13 120/70 98 01/11/24 16:18 88 17 136/86 97 01/11/24 16:16 Room Air 01/11/24 16:14 91 H 99 Room Air 01/11/24 16:13 100 Room Air 01/11/24 16:13 Room Air 01/11/24 15:56 36.8 C 94 H 20 127/69 98 Room Air 01/11/24 15:56 Room Air Laboratory Results Laboratory Results WBC 3.19 K/ul (4.8-10.8) L 01/11/24 16:07 RBC 2.53 M/uL (4.70-6.10) L 01/11/24 16:07 Hgb 7.9 g/dl (14.0-18.0) L 01/11/24 16:07 Hct 24.9 % (42.0-52.0) L 01/11/24 16:07 MCV 98.4 fL (80.0-100.0) 01/11/24 16:07 MCH 31.2 pg (25.0-34.0) 01/11/24 16:07 MCHC 31.7 g/dL (32.0-36.0) L 01/11/24 16:07 RDW Std Deviation 55.7 fL (36.4-46.3) H 01/11/24 16:07 RDW Coeff of Joesph 15.7 % (11.5-14.5) H 01/11/24 16:07 Plt Count 123 K/uL (130-400) L 01/11/24 16:07 MPV 10.4 fL (9.4-12.4) 01/11/24 16:07 Immature Gran % (Auto) 0.9 % 01/11/24 16:07 Neut % (Auto) 57.7 % 01/11/24 16:07 Lymph % (Auto) 31.0 % 01/11/24 16:07 Freeborn % (Auto) 8.2 % 01/11/24 16:07 Eos % (Auto) 1.6 % 01/11/24 16:07 Baso % (Auto) 0.6 % 01/11/24 16:07 Neut # (Auto) 1.84 K/uL (1.40-6.50) 01/11/24 16:07 Lymph # (Auto) 0.99 K/uL (1.20-3.40) L 01/11/24 16:07 Freeborn # (Auto) 0.26 K/uL (0.11-0.59) 01/11/24 16:07 Eos # (Auto) 0.05 K/uL (0.00-0.50) 01/11/24 16:07 Baso # (Auto) 0.02 K/uL (0.00-0.20) 01/11/24 16:07 Immature Gran # (Auto) 0.03 K/uL (0.01-0.20) 01/11/24 16:07 Polychromasia 1+ 01/11/24 16:07 PT 11.5 Seconds (9.0-12.0) 01/11/24 16:07 INR 1.1 (0.9-1.1) 01/11/24 16:07 APTT 24 Seconds (21-31) 01/11/24 16:07 PTT Ratio 0.9 01/11/24 16:07 Sodium 136 mmol/L (136-145) 01/11/24 16:07 Potassium 4.1 mmol/L (3.5-5.1) 01/11/24 16:07 Chloride 106 mmol/L (98-107) 01/11/24 16:07 Carbon Dioxide 23 mmol/L (21-32) 01/11/24 16:07 Anion Gap 7 (3-11) 01/11/24 16:07 BUN 32 mg/dl (6-23) H 01/11/24 16:07 Creatinine 1.01 mg/dl (0.6-1.4) 01/11/24 16:07 Est Cr Clr Drug Dosing 62.0 ml/min 01/11/24 16:07 eGFR 75.18 01/11/24 16:07 BUN/Creatinine Ratio 31.7 (10-20) H 01/11/24 16:07 Glucose 92 mg/dl (70-99(Fasting)) 01/11/24 16:07 Calcium 8.7 mg/dl (8.6-10.3) 01/11/24 16:07 Total Bilirubin 0.5 mg/dl (0.2-1.0) 01/11/24 16:07 AST 23 U/L (13-39) 01/11/24 16:07 ALT 15 U/L (7-52) 01/11/24 16:07 Alkaline Phosphatase 43 U/L (34-104) 01/11/24 16:07 Troponin I High Sens 7.4 pg/ml (0-20) 01/11/24 16:07 B-Natriuretic Peptide 67 pg/ml (0-100) 01/11/24 17:37 Total Protein 6.3 gm/dl (6.0-8.3) 01/11/24 16:07 Albumin 3.9 gm/dl (3.4-5.0) 01/11/24 16:07 Globulin 2.4 gm/dl (2.5-4.0) L 01/11/24 16:07 Albumin/Globulin Ratio 1.6 (0.9-2) 01/11/24 16:07 Nasal Screen MRSA (PCR) Negative (Negative) 01/11/24 21:14 Anaplasma Smear See Comment 01/11/24 16:07 Babesia Smear See Comment 01/11/24 16:07 Blood Type A Positive 01/11/24 18:45 Antibody Screen NEGATIVE 01/11/24 18:45 Impressions Chest X-Ray 01/11/24 16:13 XR chest 1V not portable CLINICAL HISTORY: Chest pain, nonspecific TECHNIQUE: Single frontal radiograph of the chest was obtained. Comparison: Comparison is made to chest radiograph 12/26/2023 FINDINGS: No lines and tubes are seen. Cardiomegaly is noted. Reticular interstitial opacities are seen. No evidence of pleural effusion or pneumothorax. IMPRESSION: No acute abnormalities are seen. ACT 112: Negative or not required by law. Electronically signed by: Brian Ashton M.D. 01/11/2024 4:31 PM Chest CTA 01/11/24 16:17 CT angio chest PE protocol CLINICAL HISTORY: PE TECHNIQUE: Multidetector row helical CT of the chest was performed with angiographic protocol. Coronal and sagittal reformations were obtained. Coronal and sagittal MIPS were obtained from the axial data set and were submitted for review. Automated dose lowering techniques and/or adjustment according to patient size were utilized for this exam. CT DOSE: 918.4 mGy.cm Comparison: Comparison is made to chest radiographs 01/11/2024 FINDINGS: Lungs and pleura: Small bilateral pleural effusions are seen. Emphysema and interstitial thickening are noted. There is a 25 mm nodular density in the right lung base with adjacent tree in bud nodules. Heart and pericardium: Heart size is normal. No pericardial effusion. Vessels: No evidence of pulmonary embolism. Moderate atherosclerotic disease is seen. Mediastinum and shania: Right hilar nodes measure up to 15 mm. Mediastinal lymph nodes measure up to 16 mm. A subcarinal node measures up to 17 years. Scattered additional enlarged lymph nodes are seen. Chest wall and lower neck: Unremarkable. Abdomen: A hiatal hernia is seen. Multiple gallstones are seen without evidence of acute cholecystitis. Bones: Degenerative changes in the thoracic spine. IMPRESSION: 1. No pulmonary embolus. 2. Density in the right lower lobe with associated tree in bud nodularity is favored to represent infectious/inflammatory process, however short-term follow- up is recommended to exclude underlying mass. 3. Small bilateral pleural effusions with interstitial edema. ACT 112: Negative or not required by law. Electronically signed by: Brian Ashton M.D. 01/11/2024 5:23 PM Code Status & VTE Plan Code Status Full code PG Care Time/CCT Total # of Minutes Spent Total Time Spent with Patient: Total time spent is greater than 50% in coordination of care (as documented) at patient's floor/unit and/or counseling patient: Coding Level of Care Code 42602 INT INP/OBS CARE 3/75MIN Diagnoses Anemia D64.9 Anemia type: unspecified type History of gastrointestinal bleeding Z87.19 Pneumonia involving right lung J18.9 Emphysema lung J43.9 Prostate cancer C61 Esophageal varices I85.00 Hyperlipidemia E78.5 Hypertension I10 History of prostate cancer Z85.46 History of brachytherapy Z92.3 (1) Anemia Anemia type: unspecified type Qualified Code(s): D64.9 - Anemia, unspecified
[2024-01-11] MEDS: PIPERACILLIN/TAZOBACTAM 4.5 GM/100 ML BAG IV STA (20:50)
[2024-01-11] MEDS ORDERED: ONDANSETRON INJ 2 MG/ML 2 ML VIAL IV PRN (23:21)
[2024-01-11] MEDS ORDERED: ACETAMINOPHEN 1000 MG/100 ML IV IV PRN (23:21)
[2024-01-11] MEDS: NSS + 20MEQ KCL 20 MEQ/1,000 ML BAG IV SCH (23:56)
[2024-01-12] MEDS: LATANOPROST 0.005% OP SOLN 2.5 ML BTL OPR SCH (00:16)
[2024-01-12] MEDS: TAMSULOSIN HCL 0.4 MG CAP PO SCH (00:17)
[2024-01-12] MEDS: VIBEGRON 75 MG TAB PO SCH (00:18)
[2024-01-12] MEDS: PIPERACILLIN/TAZOBACTAM 4.5 GM/100 ML BAG IV SCH (01:41)
[2024-01-12 02:55] LABS: Hematocrit (blood only) 21.9 % (42.0-52.0); Hemoglobin 7.1 g/dl (14.0-18.0)
[2024-01-12 03:09] LABS: Albumin Globulin Ratio 1.8 (0.9-2); Albumin Level 3.5 gm/dl (3.4-5.0); BUN Creatinine Ratio 28.4 (10-20); Bilirubin,Total 0.6 mg/dl (0.2-1.0); Calcium 8.5 mg/dl (8.6-10.3); Creatinine Clr Calc Pharmacy 55.9 ml/min; Potassium 3.9 mmol/L (3.5-5.1); Total Protein 5.5 gm/dl (6.0-8.3)
[2024-01-12 03:27] LABS: INR 1.1 (0.9-1.1); Partial Thromboplastin Ratio 0.9; Partial Thromboplastin Time 25 Seconds (21-31); Prothrombin Time 11.6 Seconds (9.0-12.0)
[2024-01-12] MEDS: LEVOTHYROXINE SODIUM 50 MCG TABLET PO SCH (05:23)
--- NOTE | 2024-01-12 07:48 | Electrocardiogram Report ---
Test Reason : Blood Pressure : */* mmHG Vent. Rate : 90 BPM Atrial Rate : 90 BPM P-R Int : 170 ms QRS Dur : 82 ms QT Int : 390 ms P-R-T Axes : 37 38 7 degrees QTcB Int : 477 ms Sinus rhythm with Premature atrial complexes and Premature ventricular complexes or Fusion complexes Poor R wave progression, consider anterior AR vs. lead placement vs. LVH Abnormal ECG When compared with ECG of 19-Oct-2018 20:43, Fusion complexes are now Present Premature atrial complexes are now Present QT has lengthened Confirmed by Randy Mane ([id number]) on 01/12/2024 7:47:41 AM Referred By: Confirmed By: Randy Mane
[2024-01-12 08:10] LABS: Hematocrit (blood only) 21.8 % (42.0-52.0); Hemoglobin 7.1 g/dl (14.0-18.0)
[2024-01-12] MEDS: PANTOprazole 40 MG/10 ML SYR IV SCH (09:27)
--- NOTE | 2024-01-12 09:51 | Gastrointestinal Consultation ---
<Statement entered by Gautam Lebron MD - 01/12/24 13:36> I personally saw and examined the patient. I have reviewed the chart and agree with the documentation provided by the JUNIOR PROGRAMMER ANALYST including discussion about the assessment, treatment and plan. Briefly, 78 year old male with history of esophageal varices, who presented to the ED with worsening SOB. Hgb was found to be 8 which is down from 12 in November. Today hgb fell to 7.1.He has darker stools but admits to oral iron use. stools tested trace positive in the ED. given history of varices, possible portal hypertensive gastropathy versus GAVE versus peptic ulcer disease leading to the anemia. Will plan for an EGD today. N.p.o. now PPI IV twice daily. Do not feel strongly about octreotide currently. Date of Consultation January 12, 2024 Assessment & Plan (1) Anemia: Plan Patient is an 78 year old male with history of esophageal varices, who presented to the ED with worsening SOB. Hgb was found to be 8 which is down from 12 in November. Today hgb fell to 7.1.He has darker stools but admits to oral iron use. stools tested trace positive in the ED. Case discussed with Dr. Lebron. - set up EGD to further evaluate. - continue to monitor hgb/hct and transfuse as needed. - continue with protonix 40mg IV BID. - would advise against nsaid use in the future. History of Present Illness Reason for Consultation: anemia, GIB Requesting Physician: Joselo Andres MD Attending Physician: Dolores Guadarrama MD History of Present Illness Patient is an 78 year old male with a past medical history including history of GI bleed, lung emphysema, prostate cancer status post radiation 1 year ago, LUTS, GERD, hyperlipidemia, iron deficiency, hypothyroidism and hypertension who presented to the ED on 01/10 with complaints of worsening SOB over the past month. Recently he had pneumonia and was treated, he finished treatments about a week ago. Upon evaluation in the ED his hgb was found to be 8 which is lower than his baseline of 12 which he was last month. 01/11 hgb fell to 7.1. Upon evaluation in the ED, his stools did test trace positive for occult blood. He admits stools have been dark but this is not unusual given his use of oral iron. He admits to occasional nsaid use. rest of GI ros are unremarkable. he recently had a colonoscopy done on 12/07/23 showing diverticulosis, internal hemorrhoids, and two 4-6mm colon polyps. He had his last EGD done 10/26/22 showing Grade I esophageal varices. small hiatal hernia. Allergies Allergy/AdvReac Type Severity Reaction Status Date / Time amoxicillin AdvReac Mild Diarrhea Verified 01/11/24 07:58 atenolol AdvReac Mild Diarrhea Verified 01/11/24 07:58 Home Medications Medication Instructions Recorded Confirmed Type calcium polycarbophil 625 mg 625 mg PO BID 11/13/19 01/11/24 History tablet (Fiber-Tabs) ferrous sulfate 325 mg (65 mg 325 mg PO QPM 11/13/19 01/11/24 History iron) tablet (iron) multivitamin 1 tab PO QAM 03/31/22 01/11/24 History vitamin E mixed 400 unit capsule 400 unit PO QAM 02/03/23 01/11/24 History nifedipine 30 mg tablet,extended 30 mg PO QPM #90 tabs 04/20/23 01/11/24 Rx release 24 hr atorvastatin 10 mg tablet 10 mg PO QAM #90 tabs 05/31/23 01/11/24 Rx mirabegron 50 mg tablet,extended 50 mg PO QPM #90 tabs 10/02/23 01/11/24 Rx release 24 hr (Myrbetriq) tamsulosin 0.4 mg capsule 0.8 mg (2 x 0.4 mg) PO QPM 11/30/23 01/11/24 Rx frequency #90 caps esomeprazole magnesium 20 mg 20 mg PO QPM #90 caps 12/26/23 01/11/24 Rx capsule,delayed release (Nexium 24HR) latanoprost 0.005 % eye drops 1 drp OPR HS 01/11/24 01/11/24 History levothyroxine 50 mcg tablet 50 mcg PO DAILYBB 01/11/24 01/11/24 History Patient History Medical History Esophageal varices BPH (benign prostatic hyperplasia) Rectal bleeding Hypothyroidism GERD (gastroesophageal reflux disease) History of prostate cancer diagnosed--02/24/22--brachytherapy Proctitis Cervical arthritis limited ROM per patient History of iron deficiency anemia hx of transfusions within the year (2023) Premature ventricular contractions no cards Raynaud's disease Per records TMJ (temporomandibular joint disorder) No issues since surgical intervention Surgical History History of esophagogastroduodenoscopy (EGD) History of brachytherapy History of cataract surgery History of colonoscopy History of surgery H/O hernia repair Family History Uncle Ruptured thoracic aortic aneurysm Other Hypertension No family history of adverse response to anesthesia Denies family history of Ovarian cancer Prostate cancer Myocardial infarction Breast cancer Colorectal cancer Social History Smoking Status: Former smoker Tobacco Type: Cigarettes and Pipe Age Started Using Tobacco: 14; Age Quit Using Tobacco: 38; Smoking End Date: 1983; Second Hand Exposure: No; Do You Dip or Chew Tobacco: No; Hx Alcohol Use: No (quit 1983) Hx Substance Use: No Preferred Language: Tajik Communication Ability: Effective Visual Impairment: Limited Hearing Ability: Use of Hearing Aid Clock And Watch Hands Mounter Required: No Beliefs That Will Affect Care: None marital status: Current Living Situation: Spouse current occupational status: retired How many Children do You have: 4 Other Information That Helps Us Care for You: No Feels Safe at Home: Yes Safety Concerns: Feels Safe At This Time Childhood Exposure to Second-Hand Smoke: Yes Diet: regular caffeine: Yes during the past year weight has: remained stable Dental Care, Regularly: Yes Physical Activity Frequency: Daily Seatbelt Use: always Sunscreen Use: Yes Assistive Devices: Hearing Aid - Bilateral Review of Systems Review of Systems: All systems reviewed & are unremarkable except as noted in HPI & below Physical Exam Constitutional: WD/WN, vitals as above Respiratory: normal respiratory effort, lungs clear to auscultation Cardiovascular: Rate/Rhythm: regular rate and regular rhythm Gastrointestinal (Abdomen): normal bowel sounds, soft, nontender, no hepatosplenomegaly Psychiatric: Orientation: alert and oriented x 3 Affect: euthymic affect Results & Data Vital Signs (Past 12 Hours) Vital Signs Temp Pulse Pulse Resp BP Pulse Ox O2 Del Method 01/12/24 07:45 97.7 F 85 18 102/64 97 Room Air 01/12/24 03:14 97.9 F 89 16 100/60 97 Room Air 01/11/24 23:22 97.5 F L 99 H 20 128/65 94 Room Air 01/11/24 23:05 102 H Coding Level of Care Code 15317 INT INP/OBS CARE 2/55MIN Diagnoses Anemia D64.9 Anemia type: unspecified type (1) Anemia Anemia type: unspecified type Qualified Code(s): D64.9 - Anemia, unspecified
--- NOTE | 2024-01-12 11:28 | Anesthesiology Consultation ---
Date of Service January 12, 2024 Assessment & Plan Chart Review Chart Review: Acceptable Risk for Surgery, Patient NOT seen in Pre Admission Testing and entry level project engineer initiated Consults Requested none Proposed Anesthesia Anesthesia Type: MAC History Surgery Operation Date: 01/12/24 18:05 Proposed Procedures p Esophagogastroduodenoscopy Vi Lebron MD Height/Weight Height: 5 ft 8 in Weight: 81.9 kg Allergies Allergy/AdvReac Type Severity Reaction Status Date / Time amoxicillin AdvReac Mild Diarrhea Verified 01/11/24 07:58 atenolol AdvReac Mild Diarrhea Verified 01/11/24 07:58 Medications Home Medications Medication Instructions Recorded Confirmed Last Taken calcium polycarbophil 625 mg 625 mg PO BID 11/13/19 01/11/24 01/11/24 tablet (Fiber-Tabs) AM DOSE ferrous sulfate 325 mg (65 mg 325 mg PO QPM 11/13/19 01/11/24 01/10/24 iron) tablet (iron) multivitamin 1 tab PO QAM 03/31/22 01/11/24 01/11/24 vitamin E mixed 400 unit capsule 400 unit PO QAM 02/03/23 01/11/24 01/11/24 nifedipine 30 mg tablet,extended 30 mg PO QPM #90 tabs 04/20/23 01/11/24 01/10/24 release 24 hr atorvastatin 10 mg tablet 10 mg PO QAM #90 tabs 05/31/23 01/11/24 01/11/24 mirabegron 50 mg tablet,extended 50 mg PO QPM #90 tabs 10/02/23 01/11/24 01/10/24 release 24 hr (Myrbetriq) tamsulosin 0.4 mg capsule 0.8 mg (2 x 0.4 mg) PO QPM 11/30/23 01/11/24 01/10/24 frequency #90 caps esomeprazole magnesium 20 mg 20 mg PO QPM #90 caps 12/26/23 01/11/24 01/10/24 capsule,delayed release (Nexium 24HR) latanoprost 0.005 % eye drops 1 drp OPR HS 01/11/24 01/11/24 01/10/24 levothyroxine 50 mcg tablet 50 mcg PO DAILYBB 01/11/24 01/11/24 01/11/24 Active Medications Generic Name Dose Route Start Last Admin Trade Name Freq PRN Reason Stop Dose Admin Piperacillin Sod/Tazobactam Sod 4.5 gm in 100 mls @ 25 mls/hr 01/12/24 02:00 01/12/24 09:27 Zosyn IV 01/19/24 01:59 25 mls/hr Q8H RITO Administration Protocol Pantoprazole Sodium 40 mg in 10 mls @ 5 mls/min 01/12/24 09:00 01/12/24 09:27 Protonix IV 02/11/24 08:59 5 mls/min BID RITO Administration Potassium Chloride/Sodium Chloride 20 meq in 1,000 mls @ 80 mls/hr 01/11/24 23:45 01/11/24 23:56 Normal Saline W/20 Meq Kcl IV 01/12/24 12:14 80 mls/hr .[id number] RITO Administration Latanoprost 1 drops 01/11/24 23:21 01/12/24 00:16 Latanoprost 0.005% Op Soln 2.5 Ml Btl OPR 02/10/24 23:20 1 drops HS RITO Administration Levothyroxine Sodium 50 mcg 01/12/24 06:30 01/12/24 05:23 Levothyroxine Sodium 50 Mcg Tablet PO 02/11/24 06:29 50 mcg DAILYBB RITO Administration Tamsulosin HCl 0.8 mg 01/11/24 23:21 01/12/24 00:17 Tamsulosin Hcl 0.4 Mg Cap PO 02/10/24 23:20 0.8 mg QPM RITO Administration Vibegron 75 mg 01/11/24 23:30 01/12/24 00:18 Vibegron 75 Mg Tab PO 02/10/24 23:29 Not Given QPM RITO Past Medical History Medical History Esophageal varices BPH (benign prostatic hyperplasia) Rectal bleeding Hypothyroidism GERD (gastroesophageal reflux disease) Proctitis Cervical arthritis limited ROM per patient History of iron deficiency anemia hx of transfusions within the year (2023) Premature ventricular contractions no cards Raynaud's disease Per records TMJ (temporomandibular joint disorder) No issues since surgical intervention Past Family History Family History Uncle Ruptured thoracic aortic aneurysm Other Hypertension No family history of adverse response to anesthesia Denies family history of Ovarian cancer Prostate cancer Myocardial infarction Breast cancer Colorectal cancer Past Surgical History Surgical History History of esophagogastroduodenoscopy (EGD) History of cataract surgery History of colonoscopy History of surgery for TMJ H/O hernia repair Social History Smoking Status: Former smoker tobacco type: cigarettes and pipe Do You Dip or Chew Tobacco: No Smoking End Date: 1983 Hx Alcohol Use: No (quit 1983) Hx Substance Use: No substance use type: does not use Physical Exam Vital Signs Last Vital Signs Temp 36.7 C 01/12/24 11:10 Pulse 87 01/12/24 11:10 Resp 20 01/12/24 11:10 BP 122/75 01/12/24 11:10 Pulse Ox 98 01/12/24 11:10 O2 Del Method Room Air 01/12/24 11:10 Testing Laboratory Results 01/12/24 02:20 PT 11.6 Seconds (9.0-12.0) 01/12/24 02:20 INR 1.1 (0.9-1.1) 01/12/24 02:20 APTT 25 Seconds (21-31) 01/12/24 02:20 Blood Type A Positive 01/11/24 18:45 Antibody Screen NEGATIVE 01/11/24 18:45 Electrocardiogram Date: 01/11/24 Test Reason : Blood Pressure : */* mmHG Vent. Rate : 90 BPM Atrial Rate : 90 BPM P-R Int : 170 ms QRS Dur : 82 ms QT Int : 390 ms P-R-T Axes : 37 38 7 degrees QTcB Int : 477 ms Sinus rhythm with Premature atrial complexes and Premature ventricular complexes or Fusion complexes Poor R wave progression, consider anterior NE vs. lead placement vs. LVH Abnormal ECG When compared with ECG of 19-Oct-2018 20:43, Fusion complexes are now Present Premature atrial complexes are now Present QT has lengthened Confirmed by Randy Mane ([id number]) on 01/12/2024 7:47:41 AM Chest X-Ray Date: 01/11/24 XR chest 1V not portable CLINICAL HISTORY: Chest pain, nonspecific TECHNIQUE: Single frontal radiograph of the chest was obtained. Comparison: Comparison is made to chest radiograph 12/26/2023 FINDINGS: No lines and tubes are seen. Cardiomegaly is noted. Reticular interstitial opacities are seen. No evidence of pleural effusion or pneumothorax. IMPRESSION: No acute abnormalities are seen.
[2024-01-12 11:50] LABS: Hematocrit (blood only) 21.7 % (42.0-52.0); Hemoglobin 6.9 g/dl (14.0-18.0)
[2024-01-12] MEDS ORDERED: SODIUM CHLORIDE 0.9% 250 ML IV PRN (12:19)
[2024-01-12] MEDS ORDERED: SIMETHICONE (ENDO) IR PRN (13:37)
--- NOTE | 2024-01-12 14:04 | Hospitalist Progress Note ---
Date of Service January 12, 2024 Assessment & Plan (1) Anemia: (2) History of gastrointestinal bleeding: (3) Pneumonia involving right lung: (4) Emphysema lung: (5) Prostate cancer: (6) Esophageal varices: (7) Hyperlipidemia: (8) Hypertension: (9) History of prostate cancer: (10) History of brachytherapy: Plan Symptomatic anemia/history of GI bleeding/bright red blood per rectum/history of esophageal varices/acute blood loss anemia/pancytopenia- N.p.o. Hemoglobin 7.9 on admission, with base 12.1 Heme positive in the ED H&H every 6 hours Hemoglobin dropped to 6.9 Ordered a unit of blood Continue Protonix 40 mg IV every 12 hours Patient has had multiple recent studies including EGD, colonoscopy, and capsule endoscopy Acetaminophen 1 g IV every 8 hours as needed for mild pain or fever GI preparing for EGD today Pneumonia involving right lower lobe- CTA chest negative for PE MRSA swab Zosyn 4.5 g IV every 8 hours DuoNeb every 2 hours as needed Follow-up CT recommended by radiology to verify no underlying mass Prostate cancer with LUTS- Continue mirabegron and tamsulosin Admission and Anticipated Discharge Date Admission Date: January 11, 2024 Subjective Patient feels well. Denies chest pain or shortness of breath or chills. He has been having black stools since admission. No abdominal pain. Review of Systems Review of Systems: All systems reviewed & are unremarkable except as noted in Subjective Physical Exam Physical Exam: General: Awake, conversant Heart: S1, S2/regular rate and rhythm, no murmur rubs or gallops Lungs: Clear to auscultation bilaterally. Normal effort Abdomen: Soft/nontender/nondistended. No hepatosplenomegaly Extremities: No clubbing/cyanosis. No edema Behavior: Appropriate, cooperative Results & Data Results & Data Vital Signs (Past 12 Hours) Vital Signs Temp Pulse Pulse Resp BP BP Pulse Ox 01/12/24 13:39 36.7 C 80 18 111/71 98 01/12/24 13:24 36.7 C 78 16 105/65 98 01/12/24 13:01 36.6 C 82 18 120/69 98 01/12/24 11:10 36.7 C 87 20 122/75 98 01/12/24 10:00 77 01/12/24 07:45 36.5 C 85 18 102/64 97 01/12/24 03:14 36.6 C 89 16 100/60 97 O2 Del Method 01/12/24 13:39 01/12/24 13:24 01/12/24 13:01 01/12/24 11:10 Room Air 01/12/24 10:00 01/12/24 07:45 Room Air 01/12/24 03:14 Room Air Laboratory Results Abnormal lab results 01/11/24 01/11/24 01/12/24 Range/Units 16:07 18:45 02:20 WBC 3.19 L (4.8-10.8) K/ul RBC 2.53 L (4.70-6.10) M/uL Hgb 7.9 L 7.1 L (14.0-18.0) g/dl Hct 24.9 L 21.9 L (42.0-52.0) % MCHC 31.7 L (32.0-36.0) g/dL RDW Std Deviation 55.7 H (36.4-46.3) fL RDW Coeff of Joesph 15.7 H (11.5-14.5) % Plt Count 123 L (130-400) K/uL Lymph # (Auto) 0.99 L (1.20-3.40) K/uL Chloride 110 H (98-107) mmol/L BUN 32 H 29 H (6-23) mg/dl BUN/Creatinine Ratio 31.7 H 28.4 H (10-20) Calcium 8.5 L (8.6-10.3) mg/dl Total Protein 5.5 L (6.0-8.3) gm/dl Globulin 2.4 L 2.0 L (2.5-4.0) gm/dl Crossmatch See Detail 01/12/24 01/12/24 Range/Units 07:27 11:10 WBC (4.8-10.8) K/ul RBC (4.70-6.10) M/uL Hgb 7.1 L 6.9 L* (14.0-18.0) g/dl Hct 21.8 L 21.7 L (42.0-52.0) % MCHC (32.0-36.0) g/dL RDW Std Deviation (36.4-46.3) fL RDW Coeff of Joesph (11.5-14.5) % Plt Count (130-400) K/uL Lymph # (Auto) (1.20-3.40) K/uL Chloride (98-107) mmol/L BUN (6-23) mg/dl BUN/Creatinine Ratio (10-20) Calcium (8.6-10.3) mg/dl Total Protein (6.0-8.3) gm/dl Globulin (2.5-4.0) gm/dl Crossmatch Diagnostic Findings Chest X-Ray 01/11/24 16:13 XR chest 1V not portable CLINICAL HISTORY: Chest pain, nonspecific TECHNIQUE: Single frontal radiograph of the chest was obtained. Comparison: Comparison is made to chest radiograph 12/26/2023 FINDINGS: No lines and tubes are seen. Cardiomegaly is noted. Reticular interstitial opacities are seen. No evidence of pleural effusion or pneumothorax. IMPRESSION: No acute abnormalities are seen. ACT 112: Negative or not required by law. Electronically signed by: Brian Ashton M.D. 01/11/2024 4:31 PM Chest CTA 01/11/24 16:17 CT angio chest PE protocol CLINICAL HISTORY: PE TECHNIQUE: Multidetector row helical CT of the chest was performed with angiographic protocol. Coronal and sagittal reformations were obtained. Coronal and sagittal MIPS were obtained from the axial data set and were submitted for review. Automated dose lowering techniques and/or adjustment according to patient size were utilized for this exam. CT DOSE: 918.4 mGy.cm Comparison: Comparison is made to chest radiographs 01/11/2024 FINDINGS: Lungs and pleura: Small bilateral pleural effusions are seen. Emphysema and interstitial thickening are noted. There is a 25 mm nodular density in the right lung base with adjacent tree in bud nodules. Heart and pericardium: Heart size is normal. No pericardial effusion. Vessels: No evidence of pulmonary embolism. Moderate atherosclerotic disease is seen. Mediastinum and shania: Right hilar nodes measure up to 15 mm. Mediastinal lymph nodes measure up to 16 mm. A subcarinal node measures up to 17 years. Scattered additional enlarged lymph nodes are seen. Chest wall and lower neck: Unremarkable. Abdomen: A hiatal hernia is seen. Multiple gallstones are seen without evidence of acute cholecystitis. Bones: Degenerative changes in the thoracic spine. IMPRESSION: 1. No pulmonary embolus. 2. Density in the right lower lobe with associated tree in bud nodularity is favored to represent infectious/inflammatory process, however short-term follow- up is recommended to exclude underlying mass. 3. Small bilateral pleural effusions with interstitial edema. ACT 112: Negative or not required by law. Electronically signed by: Brian Ashton M.D. 01/11/2024 5:23 PM PG Care Time/CCT Total # of Minutes Spent Total Time Spent with Patient: Total time spent is greater than 50% in coordination of care (as documented) at patient's floor/unit and/or counseling patient: Coding Level of Care Code 85899 SUB INP/OBS CARE 2/35MIN Diagnoses Anemia D64.9 Anemia type: unspecified type History of gastrointestinal bleeding Z87.19 Pneumonia involving right lung J18.9 Emphysema lung J43.9 Prostate cancer C61 Esophageal varices I85.00 Hyperlipidemia E78.5 Hypertension I10 History of prostate cancer Z85.46 History of brachytherapy Z92.3 (1) Anemia Anemia type: unspecified type Qualified Code(s): D64.9 - Anemia, unspecified
--- NOTE | 2024-01-12 15:41 | GI REPORT ---
[facility] Patient: MARIA DERAS : 1945 Sex at : Male Age: 78 Years Procedure: Upper GI endoscopy Date: 01/12/2024 Attending Physician: Gautam Lebron MD Referring MD: Dolores Guadarrama Md Indications: - Melena - Acute post hemorrhagic anemia - Cirrhosis rule out esophageal varices Medications: - Monitored Anesthesia Care Complications: - No immediate complications. Estimated Blood Loss: - Estimated blood loss: None. - Estimated blood loss was minimal. Procedure: - Prior to the procedure, a History and Physical was performed, and patient medications and allergies were reviewed. The patient's tolerance of previous anesthesia was also reviewed. The risks and benefits of the procedure and the sedation options and risks were discussed with the patient. All questions were answered, and informed consent was obtained. Prior Anticoagulants: The patient has taken no anticoagulant or antiplatelet agents. ASA Grade Assessment: III - A patient with severe systemic disease. After reviewing the risks and benefits, the patient was deemed in satisfactory condition to undergo the procedure. - The egd scope was introduced through the mouth and advanced to the third part of the duodenum. - The upper GI endoscopy was accomplished without difficulty. - The patient tolerated the procedure well. Findings: - A small hiatal hernia was present. - Localized moderate inflammation characterized by erythema and erosions was found in the gastric body and in the gastric fundus. - A few small angiodysplastic lesions with bleeding were found in the second portion of the duodenum. Coagulation for hemostasis using argon plasma was successful. 2 avms were not bleeding. 1 was actively bleeding and cauterized. Hemostasis present but not complete. Clip placed and complete hemostasis. To stop active bleeding, one hemostatic clip was successfully placed. There was no bleeding at the end of the procedure. Impression: - Small hiatal hernia. - Gastritis, characterized by erythema and erosions. 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 Treated with argon plasma coagulation (APC). Clip was placed. - 2 avms were not bleeding. 1 was actively bleeding and cauterized. Hemostasis present but not complete. Clip placed and complete hemostasis. - No specimens collected. Recommendation: - Discharge patient to home (ambulatory). - Resume previous diet. - Continue present medications. - Await pathology results. - Return to primary care physician as previously scheduled. - Patient has a contact number available for emergencies. The signs and symptoms of potential delayed complications were discussed with the patient. Return to normal activities tomorrow. Written discharge instructions were provided to the patient. - Use Protonix (pantoprazole) 40 mg PO daily. - clear liquid diet. Procedure Code(s): - 96259, Esophagogastroduodenoscopy, flexible, transoral; with control of bleeding, any method Diagnosis Code(s): - K92.1, Melena (includes Hematochezia) - D62, Acute posthemorrhagic anemia - K74.60, Unspecified cirrhosis of liver - K44.9, Diaphragmatic hernia without obstruction or gangrene - K29.70, Gastritis, unspecified, without bleeding - K31.811, Angiodysplasia of stomach and duodenum with bleeding CPT(R) - 2023 copyright [employer]. All Rights Reserved. The CPT codes, CCI edits and ICD codes generated are intended as suggestions and were generated based on input data. These codes are preliminary and upon worksite wellness practitioner review may be revised to meet current compliance and payer requirements. The provider is responsible for the final determination of appropriate codes, and modifiers. Gautam Lebron MD This document has been electronically signed. Note Initiated:01/12/2024 Note Completed:01/12/2024 3:39 PM \\[email or web address]\[id number]
[2024-01-12] MEDS: PROPOFOL IV EMULSION 10 MG/ML 20 ML VIAL IV ONE (16:36)
[2024-01-12] MEDS: LIDOCAINE 2% 2 ML VIAL/AMP(20MG/ML) INFIL ONE (16:36)
[2024-01-12] MEDS: ONDANSETRON INJ 2 MG/ML 2 ML VIAL ONE (16:36)
--- NOTE | 2024-01-12 17:11 | Anesthesiology Progress Note ---
Date of Service January 12, 2024 Anesthesia Post Procedure Vital Signs Vital Signs: Temp Pulse Pulse Resp BP BP BP 01/12/24 16:29 36.8 C 85 20 118/71 01/12/24 16:14 79 16 116/66 01/12/24 15:59 82 16 107/67 01/12/24 15:46 85 16 95/64 L 01/12/24 14:54 36.6 C 85 16 115/71 01/12/24 14:52 36.5 C 86 16 126/72 01/12/24 14:09 36.8 C 84 18 112/63 01/12/24 13:39 36.7 C 80 18 111/71 01/12/24 13:24 36.7 C 78 16 105/65 01/12/24 13:01 36.6 C 82 18 120/69 01/12/24 11:10 36.7 C 87 20 122/75 01/12/24 10:00 77 01/12/24 07:45 36.5 C 85 18 102/64 01/12/24 03:14 36.6 C 89 16 100/60 01/11/24 23:22 36.4 C L 99 H 20 128/65 01/11/24 23:05 102 H 01/11/24 21:00 93 H 20 147/96 H 01/11/24 20:20 110 H 01/11/24 19:00 93 H 20 115/79 01/11/24 18:03 99 H 13 131/76 01/11/24 17:54 86 19 01/11/24 17:45 91 H 13 120/70 Pulse Ox O2 Del Method 01/12/24 16:29 95 Room Air 01/12/24 16:14 97 Room Air 01/12/24 15:59 96 Room Air 01/12/24 15:46 97 Room Air 01/12/24 14:54 96 01/12/24 14:52 97 Room Air 01/12/24 14:09 97 01/12/24 13:39 98 01/12/24 13:24 98 01/12/24 13:01 98 01/12/24 11:10 98 Room Air 01/12/24 10:00 01/12/24 07:45 97 Room Air 01/12/24 03:14 97 Room Air 01/11/24 23:22 94 Room Air 01/11/24 23:05 01/11/24 21:00 96 01/11/24 20:20 01/11/24 19:00 96 Room Air 01/11/24 18:03 96 Room Air 01/11/24 17:54 93 01/11/24 17:45 98 Transfer of Care Handoff Completed per policy Notes Mental Status: alert / awake / arousable Patient Amnestic to Procedure: Yes Nausea / Vomiting: adequately controlled Pain: adequately controlled Airway Patency, RR, SpO2: stable & adequate BP & HR: stable & adequate Hydration State: stable & adequate Anesthetic Complications: no major complications apparent
[2024-01-12 18:10] LABS: Hematocrit (blood only) 27.9 % (42.0-52.0); Hemoglobin 9.1 g/dl (14.0-18.0)
[2024-01-13 07:15] LABS: Basophils # (auto) 0.02 K/uL (0.00-0.20); Basophils % (auto) 0.8 %; Eosinophils # (auto) 0.12 K/uL (0.00-0.50); Eosinophils % (auto) 4.5 %; Hematocrit (blood only) 26.8 % (42.0-52.0); Hemoglobin 8.6 g/dl (14.0-18.0); Immature Granulocytes # (auto) 0.02 K/uL (0.01-0.20); Immature Granulocytes % (auto) 0.8 %; Lymphocytes # (auto) 0.72 K/uL (1.20-3.40); Lymphocytes % (auto) 27.3 %; Mean Corpuscular Hemoglobin 31.4 pg (25.0-34.0); Mean Corpuscular Hgb Conc 32.1 g/dL (32.0-36.0); Mean Corpuscular Volume 97.8 fL (80.0-100.0); Mean Platelet Volume 10.6 fL (9.4-12.4); Monocytes # (auto) 0.28 K/uL (0.11-0.59); Monocytes % (auto) 10.6 %; Neutrophils # (auto) 1.48 K/uL (1.40-6.50); Platelet Count 102 K/uL (130-400); RDW Coefficient of Variation 16.1 % (11.5-14.5); RDW Standard Deviation 55.7 fL (36.4-46.3); Red Blood Count 2.74 M/uL (4.70-6.10); White Blood Count 2.64 K/ul (4.8-10.8)
[2024-01-13 07:36] LABS: Albumin Globulin Ratio 1.6 (0.9-2); Albumin Level 3.5 gm/dl (3.4-5.0); BUN Creatinine Ratio 15.7 (10-20); Calcium 8.4 mg/dl (8.6-10.3); Creatinine Clr Calc Pharmacy 49.6 ml/min; Globulin 2.2 gm/dl (2.5-4.0); Magnesium 1.9 mg/dl (1.7-2.4); Potassium 3.9 mmol/L (3.5-5.1); Total Protein 5.7 gm/dl (6.0-8.3)
[2024-01-13 07:59] LABS: INR 1.1 (0.9-1.1); Partial Thromboplastin Ratio 0.9; Partial Thromboplastin Time 25 Seconds (21-31); Prothrombin Time 11.8 Seconds (9.0-12.0)
[2024-01-13] MEDS: PANTOprazole 40 MG TAB PO SCH (08:57)
[2024-01-13 11:20] VITALS: RESP 18
--- NOTE | 2024-01-13 12:55 | Hospitalist Progress Note ---
Date of Service January 13, 2024 Assessment & Plan (1) Anemia: (2) History of gastrointestinal bleeding: (3) Pneumonia involving right lung: (4) Emphysema lung: (5) Prostate cancer: (6) Esophageal varices: (7) Hyperlipidemia: (8) Hypertension: (9) History of prostate cancer: (10) History of brachytherapy: Plan Symptomatic anemia/history of GI bleeding/bright red blood per rectum/history of esophageal varices/acute blood loss anemia/pancytopenia- N.p.o. Hemoglobin 7.9 on admission, with base 12.1 Heme positive in the ED Hemoglobin dropped to 6.9 Status post 1 unit of blood transfusion on 01/11 EGD on 01/11 showed few bleeding angiodysplastic lesions, 1 of which was act ively bleeding and was raised. This was thought to be the culprit Protonix has been changed to p.o. Patient is doing well currently Tolerating a full liquid diet Will advance slowly Pneumonia involving right lower lobe- This was incidentally found on CT chest Patient is not short of breath, hypoxic, coughing CTA chest negative for PE MRSA swab negative Continue Zosyn 4.5 g IV every 8 hours for now. Will switch to p.o. Augmentin at the time of discharge Follow-up CT recommended by radiology to verify no underlying mass Prostate cancer with LUTS- Continue mirabegron and tamsulosin Admission and Anticipated Discharge Date Admission Date: January 11, 2024 Subjective Patient was seen and examined at 10:45 AM. He had just had a bowel movement that was dark. He feels well otherwise. Denies chest pain or shortness of breath. Does not feel fatigued. His hemoglobin is stable today. I assured him that the black stool is most likely due to residual blood sitting in his GI tract or from the iron tablets. He is tolerating a full liquid diet Review of Systems Review of Systems: All systems reviewed & are unremarkable except as noted in Subjective Physical Exam Physical Exam: General: Awake, conversant Heart: S1, S2/regular rate and rhythm, no murmur rubs or gallops Lungs: Clear to auscultation bilaterally. Normal effort Abdomen: Soft/nontender/nondistended. No hepatosplenomegaly Extremities: No clubbing/cyanosis. No edema Behavior: Appropriate, cooperative Results & Data Results & Data Vital Signs (Past 12 Hours) Vital Signs Temp Pulse Pulse Resp BP Pulse Ox O2 Del Method 01/13/24 11:20 36.8 C 87 18 107/63 96 Room Air 01/13/24 10:04 75 01/13/24 07:18 36.6 C 88 16 108/68 96 Room Air 01/13/24 02:43 36.5 C 86 18 110/60 95 Room Air Laboratory Results Abnormal lab results 01/11/24 01/12/24 01/13/24 Range/Units 18:45 17:41 06:35 WBC 2.64 L (4.8-10.8) K/ul RBC 2.74 L (4.70-6.10) M/uL Hgb 9.1 L 8.6 L (14.0-18.0) g/dl Hct 27.9 L 26.8 L (42.0-52.0) % RDW Std Deviation 55.7 H (36.4-46.3) fL RDW Coeff of Joesph 16.1 H (11.5-14.5) % Plt Count 102 L (130-400) K/uL Lymph # (Auto) 0.72 L (1.20-3.40) K/uL Chloride 110 H (98-107) mmol/L Glucose 100 H (70-99(Fasting)) mg/dl Calcium 8.4 L (8.6-10.3) mg/dl Total Protein 5.7 L (6.0-8.3) gm/dl Globulin 2.2 L (2.5-4.0) gm/dl Crossmatch See Detail PG Care Time/CCT Total # of Minutes Spent Total Time Spent with Patient: Total time spent is greater than 50% in coordination of care (as documented) at patient's floor/unit and/or counseling patient: Coding Level of Care Code 26004 SUB INP/OBS CARE 2/35MIN Diagnoses Anemia D64.9 Anemia type: unspecified type History of gastrointestinal bleeding Z87.19 Pneumonia involving right lung J18.9 Emphysema lung J43.9 Prostate cancer C61 Esophageal varices I85.00 Hyperlipidemia E78.5 Hypertension I10 History of prostate cancer Z85.46 History of brachytherapy Z92.3 (1) Anemia Anemia type: unspecified type Qualified Code(s): D64.9 - Anemia, unspecified
[2024-01-13 19:33] VITALS: TEMP 97.7
[2024-01-14] MEDS ORDERED: SODIUM CHLORIDE 0.65% NA SOLN 45 ML (OCEAN) PRN (03:51)
[2024-01-14] MEDS: OXYMETAZOLINE 0.05% 30 ML BTL ONE (04:35)
[2024-01-14 06:09] LABS: Basophils # (auto) 0.03 K/uL (0.00-0.20); Basophils % (auto) 0.8 %; Eosinophils # (auto) 0.19 K/uL (0.00-0.50); Hematocrit (blood only) 29.5 % (42.0-52.0); Hemoglobin 9.4 g/dl (14.0-18.0); Immature Granulocytes # (auto) 0.02 K/uL (0.01-0.20); Immature Granulocytes % (auto) 0.5 %; Lymphocytes # (auto) 0.91 K/uL (1.20-3.40); Lymphocytes % (auto) 23.9 %; Mean Corpuscular Hemoglobin 31.3 pg (25.0-34.0); Mean Corpuscular Hgb Conc 31.9 g/dL (32.0-36.0); Mean Corpuscular Volume 98.3 fL (80.0-100.0); Mean Platelet Volume 10.6 fL (9.4-12.4); Monocytes # (auto) 0.32 K/uL (0.11-0.59); Monocytes % (auto) 8.4 %; Neutrophils # (auto) 2.34 K/uL (1.40-6.50); Neutrophils % (auto) 61.4 %; Platelet Count 120 K/uL (130-400); White Blood Count 3.81 K/ul (4.8-10.8)
[2024-01-14] MEDS: TXA 10% Non-IV Routes 100 MG/ML VIAL ONE (06:14)
[2024-01-14 06:29] LABS: Albumin Globulin Ratio 1.7 (0.9-2); Albumin Level 3.9 gm/dl (3.4-5.0); BUN Creatinine Ratio 9.9 (10-20); Bilirubin,Total 0.9 mg/dl (0.2-1.0); Calcium 8.5 mg/dl (8.6-10.3); Creatinine Clr Calc Pharmacy 50.9 ml/min; Globulin 2.3 gm/dl (2.5-4.0); INR 1.1 (0.9-1.1); Magnesium 1.9 mg/dl (1.7-2.4); Partial Thromboplastin Ratio 0.9; Partial Thromboplastin Time 24 Seconds (21-31); Potassium 3.6 mmol/L (3.5-5.1); Prothrombin Time 11.8 Seconds (9.0-12.0); Total Protein 6.2 gm/dl (6.0-8.3)
[2024-01-14 07:48] VITALS: BP 130/71; O2SAT 95
--- NOTE | 2024-01-14 10:00 | ENT Consultation ---
Date of Consultation January 14, 2024 Assessment & Plan (1) Epistaxis: Plan Epistaxis managed as above Ok for discharge from ENT standpoint History of Present Illness Reason for Consultation: Epistaxis Attending Physician: Dolores Guadarrama MD History of Present Illness 78 yo male admitted with symptomatic anemia from GI bleed who started with epistaxis on the left side this morning around 4 am. He does not suffer from recurrent epistaxis. Is not on any anticoagulation. States the bleeding has since subsided. Allergies Allergy/AdvReac Type Severity Reaction Status Date / Time amoxicillin AdvReac Mild Diarrhea Verified 01/12/24 14:58 atenolol AdvReac Mild Diarrhea Verified 01/12/24 14:58 Home Medications Medication Instructions Recorded Confirmed Type calcium polycarbophil 625 mg 625 mg PO BID 11/13/19 01/11/24 History tablet (Fiber-Tabs) ferrous sulfate 325 mg (65 mg 325 mg PO QPM 11/13/19 01/11/24 History iron) tablet (iron) multivitamin 1 tab PO QAM 03/31/22 01/11/24 History vitamin E mixed 400 unit capsule 400 unit PO QAM 02/03/23 01/11/24 History nifedipine 30 mg tablet,extended 30 mg PO QPM #90 tabs 04/20/23 01/11/24 Rx release 24 hr atorvastatin 10 mg tablet 10 mg PO QAM #90 tabs 05/31/23 01/11/24 Rx mirabegron 50 mg tablet,extended 50 mg PO QPM #90 tabs 10/02/23 01/11/24 Rx release 24 hr (Myrbetriq) tamsulosin 0.4 mg capsule 0.8 mg (2 x 0.4 mg) PO QPM 11/30/23 01/11/24 Rx frequency #90 caps esomeprazole magnesium 20 mg 20 mg PO QPM #90 caps 12/26/23 01/11/24 Rx capsule,delayed release (Nexium 24HR) latanoprost 0.005 % eye drops 1 drp OPR HS 01/11/24 01/11/24 History levothyroxine 50 mcg tablet 50 mcg PO DAILYBB 01/11/24 01/11/24 History Patient History Medical History Esophageal varices BPH (benign prostatic hyperplasia) Rectal bleeding Hypothyroidism GERD (gastroesophageal reflux disease) Proctitis Cervical arthritis limited ROM per patient History of iron deficiency anemia hx of transfusions within the year (2023) Premature ventricular contractions no cards Raynaud's disease Per records TMJ (temporomandibular joint disorder) No issues since surgical intervention Surgical History History of esophagogastroduodenoscopy (EGD) History of cataract surgery History of colonoscopy History of surgery for TMJ H/O hernia repair Family History Uncle Ruptured thoracic aortic aneurysm Other Hypertension No family history of adverse response to anesthesia Denies family history of Ovarian cancer Prostate cancer Myocardial infarction Breast cancer Colorectal cancer Social History Smoking Status: Former smoker Tobacco Type: Cigarettes and Pipe Age Started Using Tobacco: 14; Age Quit Using Tobacco: 38; packs per day: 0; Smoking End Date: 1983; Second Hand Exposure: No; Do You Dip or Chew Tobacco: No; Hx Alcohol Use: No (quit 1983) Hx Substance Use: No Preferred Language: Czech Communication Ability: Effective Visual Impairment: Limited Hearing Ability: Use of Hearing Aid Bone Crusher Required: No Beliefs That Will Affect Care: None marital status: Current Living Situation: Spouse current occupational status: retired How many Children do You have: 4 Other Information That Helps Us Care for You: No Feels Safe at Home: Yes Safety Concerns: Feels Safe At This Time Childhood Exposure to Second-Hand Smoke: Yes Diet: regular caffeine: Yes during the past year weight has: remained stable Dental Care, Regularly: Yes Physical Activity Frequency: Daily Seatbelt Use: always Sunscreen Use: Yes Assistive Devices: None Review of Systems Review of Systems: negative other than HPI Physical Exam Physical Exam: PROCEDURE: Attention was directed to the left side of the nose. The clots were removed with suction with headlight guidance. The nose was then anesthetized with 1% lidocained with afrin spray. At this point, a Bleed Arrest absorbable pack was placed. Patient tolerated procedure well Constitutional: WD/WN, vitals as above Eyes: PERRL, conjunctivae normal, anicteric sclerae ENMT: external ear and nose normal, oropharynx normal Results & Data Vital Signs (Past 12 Hours) Vital Signs Temp Pulse Pulse Resp BP BP Pulse Ox 01/14/24 07:47 36.5 C 85 18 130/71 95 01/14/24 02:52 36.5 C 77 18 117/71 93 01/14/24 00:20 87 01/13/24 22:39 36.5 C 81 18 128/71 93 O2 Del Method 01/14/24 07:47 Room Air 01/14/24 02:52 Room Air 01/14/24 00:20 01/13/24 22:39 Room Air
[2024-01-14] MEDS: INFLUENZA VACC TS2024-25(65y+)/PF (IIV3) 0.5mL Syr IM ONE (10:42)
--- NOTE | 2024-01-14 10:44 | Discharge Summary ---
Date of Service January 14, 2024 Admission HPI Per Admitting Provider The patient is an 78-year-old male with a past medical history including history of GI bleed, lung emphysema, prostate cancer status post radiation 1 year ago, LUTS, GERD, hyperlipidemia, iron deficiency, hypothyroidism and hypertension. He presents to the emergency department with symptoms as noted above. He was also referred to the ED due to outpatient concerns regarding a possible PE. Admission Exam Per Admitting Provider The patient is awake, alert and oriented 3, well developed and well nourished, normocephalic and atraumatic, lying in bed and in no acute distress. HEENT--PERRL, EOMI, mucous membranes and oropharynx normal Neck--supple. No JVD. No bruits. Thyroid normal, trachea midline, no adenopathy. Heart--normal S1 and S2. No murmurs, rubs or gallops. Lungs--decreased breath sounds at the bases, right greater than left. No respiratory distress, no accessory muscle use. Abdomen--normal bowel sounds and soft. Nontender. Nondistended Extremities--no cyanosis or clubbing. No edema. Dermatologic--normal skin turgor, normal color, no abnormal lymph nodes, no rash. Neurologic--cranial nerves II through XII grossly intact. Rheumatologic--normal range of motion. Psychiatric--normal affect. Principal Diagnosis Acute GI bleed 2/2 angiodysplasia leading to acute blood loss anemia Nose bleed Question of pneumonia Discharge Exam General: Awake, conversant Heart: S1, S2/regular rate and rhythm, no murmur rubs or gallops Lungs: Clear to auscultation bilaterally. Normal effort Abdomen: Soft/nontender/nondistended. No hepatosplenomegaly Extremities: No clubbing/cyanosis. No edema Behavior: Appropriate, cooperative Discharge Data Allergies Allergy/AdvReac Type Severity Reaction Status Date / Time amoxicillin AdvReac Mild Diarrhea Verified 01/12/24 14:58 atenolol AdvReac Mild Diarrhea Verified 01/12/24 14:58 Consultations 01/11/24 20:59 ED Decision to Admit Stat 01/11/24 23:21 Consult Gastroenterology Routine 01/14/24 06:28 Consult Otolaryngology (Head and Neck) Routine Procedures Performed Operation Date: 01/12/24 18:05 Actual Procedures p EGD Hemostasis - Gautam Lebron MD Ordered Studies 01/11/24 16:17 CT angio chest PE protocol Stat Hospital Course (1) Anemia: (2) History of gastrointestinal bleeding: (3) Pneumonia involving right lung: (4) Emphysema lung: (5) Prostate cancer: (6) Esophageal varices: (7) Hyperlipidemia: (8) Hypertension: (9) History of prostate cancer: (10) History of brachytherapy: Plan Symptomatic anemia/history of GI bleeding/bright red blood per rectum/history of esophageal varices/acute blood loss anemia/pancytopenia- Hemoglobin 7.9 on admission, with base 12.1 Heme positive in the ED Hemoglobin dropped to 6.9 Status post 1 unit of blood transfusion on 01/11 EGD on 01/11 showed few bleeding angiodysplastic lesions, 1 of which was actively bleeding and was cauterized. This was thought to be the culprit Protonix has been changed to p.o. Patient is doing well currently Tolerating a solid diet and heart Her hemoglobin has been stable Epistaxis Patient had epistaxis overnight Seen by ENT today Nose packed with absorbable packing Cleared for discharge by ENT Pneumonia involving right lower lobe- This was incidentally found on CT chest Patient is not short of breath, hypoxic, coughing CTA chest negative for PE MRSA swab negative Patient was treated with Zosyn while in the hospital, will switch to Augmentin Follow-up CT recommended by radiology in near future to verify no underlying mass Prostate cancer with LUTS- Continue mirabegron and tamsulosin Total Time Total Time Spent Total Time Spent (In Minutes): 35 Discharge Plan Discharge Items Patient Disposition: Home - Self-Care Reason For Visit: LOWER GI BLEED, ANEMIA Discharge Diagnosis: Acute GI bleed 2/2 angiodysplasia leading to acute blood loss anemia Nose bleed Question of pneumonia Condition on Discharge: Fair Activity: Resume your previous activity Non-emergency contact: Primary Care Provider Call non-emergency contact if: you have any medication questions and your symptoms worsen Follow-up/Referrals: Zack Aaron DO [Primary Care Provider] - 01/22/24 1:00 pm (Hospital follow up scheduled January 21 at 1:00) Diet: Heart Healthy Addtl Attending Provider Instructions: - advised to follow-up with PCP in 1 week Pending Studies at Discharge: No Stand-Alone Forms: My [facility] Medications and DC Order Prescriptions: New amoxicillin-pot clavulanate [Augmentin] 500-125 mg tablet 1 tab PO BID 3 Days Qty: 6 0RF pantoprazole 40 mg Tablet,Delayed Release (Dr/Ec) 40 mg PO QAM 30 Days Qty: 30 0RF Continued multivitamin Tablet 1 tab PO QAM vitamin E mixed 400 unit capsule 400 unit PO QAM nifedipine 30 mg tablet extended release 24hr 30 mg PO QPM Qty: 90 3RF atorvastatin 10 mg tablet 10 mg PO QAM Qty: 90 3RF Myrbetriq 50 mg tablet extended release 24 hr 50 mg PO QPM Qty: 90 4RF tamsulosin 0.4 mg capsule 0.8 mg PO QPM Qty: 90 1RF Rx Instructions: 2 CAPSULES after supper calcium polycarbophil [Fiber-Tabs] 625 mg tablet 625 mg PO BID ferrous sulfate [iron] 325 mg (65 mg iron) Tablet 325 mg PO QPM latanoprost 0.005 % drops 1 drp OPR HS levothyroxine 50 mcg tablet 50 mcg PO DAILYBB Discontinued esomeprazole magnesium [Nexium 24HR] 20 mg capsule,delayed release(DR/EC) 20 mg PO QPM Qty: 90 3RF Discharge Orders: Discharge Order (Routine); Ordered 01/14/24 Ordered By: Dolores Lawler/Other Patient Handouts: Anemia, ED Epistaxis (Adult) Admission Data Admit Date/Time: 01/11/24 22:30 Attending Provider: Dolores Guadarrama Admit Provider: Joselo Andres Primary Care Provider: Zack Aaron Other Providers: Joselo Andres; La Calderon Jr; Chris Menjivar
[2024-01-14 10:59] VITALS: PULSE 85
[2024-01-15 22:17] LABS: Babesia microti DNA Not Detected (Not Detected)
--- NOTE | 2024-01-17 22:44 | Electrocardiogram Report ---
Test Reason : Blood Pressure : */* mmHG Vent. Rate : 95 BPM Atrial Rate : 95 BPM P-R Int : 160 ms QRS Dur : 90 ms QT Int : 376 ms P-R-T Axes : 32 3 51 degrees QTcB Int : 473 ms Sinus rhythm with frequent Premature ventricular complexes When compared with ECG of 11-Jan-2024 16:19, Premature atrial complexes are no longer Present Minimal criteria for Anterior infarct are no longer Present T wave inversion no longer evident in Inferior leads Confirmed by Wing Hamilton ([id number]) on 01/17/2024 10:44:05 PM Referred By: REFERRED SELF Confirmed By: Wing Hamilton
== END 2024-01-14 11:49 | disposition home or self-care (01) | DRG 377 ==
LOC: ED 15:51 → SUATTDRO 22:30 → 2S 22:30

== ENCOUNTER 2024-11-29 16:48 | Inpatient (IN) ==
--- NOTE | 2024-11-29 17:11 | Emergency Department Note ---
Impression & Plan Acute hypoxic respiratory failure, Acute respiratory alkalosis, Bilateral pulmonary embolism, Pancytopenia, Hypoalbuminemia, Acute hyponatremia ED Provider Note NAME: MARIA DERAS Jr AGE: 79 SEX: M : 1945 ARRIVES VIA: Walk-In INFORMANT: Patient, ED PROVIDER(S): Nolberto Vila DO CHIEF COMPLAINT: SOB, dehydration HPI: This is a 79-year-old male with the PMHx of NSCLC who just completed radiation (last chemotherapy in September), Hypertension, hyperlipidemia, iron deficiency anemia, hypothyroidism, BPH, prior prostate cancer, pulmonary hypertension, and CAD presenting to [facility] for further evaluation of dyspnea. Patient is accompanied by his who provide additional history. Patient reports that since having radiation he has no appetite. Patient reports decreased p.o. intake and having IV infusions with crystalloid at the cancer center. Patient was sent in by the cancer center today for increased work of breathing. He notes over the past few days he has had dyspnea at rest. This worsens with exertional activities. He does report a cough productive of sputum that is blood-tinged. Patient reports no anticoagulation. He does report lower extremity swelling as well. They deny fever or chills. Denies chest pain or palpitations. They deny abdominal pain, nausea and vomiting. No urinary complaints. No recent changes in bowel movements. Patient denies recent changes in medications or OTC supplements. Patient offers no other complaints, today. ADDITIONAL HISTORY OBTAINED: Per HPI Chronic Medical/Social Conditions Affecting Care: Per HPI PAST MEDICAL HISTORY: See Below PAST SURGICAL HISTORY: See Below FAMILY HISTORY: See Below SOCIAL HISTORY: See Below HOME MEDICATIONS: See Below ALLERGIES: See Below VITALS: See Below PHYSICAL EXAMINATION: GENERAL: Sitting up in bed, alert, well appearing, well nourished, no distress, non-toxic EYE EXAM: normal conjunctiva. PERRL and EOM's grossly intact. OROPHARYNX: no exudate, no erythema, lips, buccal mucosa, and tongue normal and mucous membranes are dry NECK: supple, no nuchal rigidity, no adenopathy, non-tender LUNGS: mild tachypnea noted. Poor air movement in all lung christianson. HEART: no murmurs, tachycardic rate, regular rhythm ABDOMEN: abdomen soft, non-tender, no masses, no rebound or guarding. BACK: Back is symmetrical on inspection and there is no deformity, no midline tenderness, no CVA tenderness. SKIN: no rashes and no bruising UPPER EXTREMITIES: upper extremities are grossly normal. LOWER EXTREMITIES: 3+ pitting edema in the bilateral extremities that is worsened in the right lower extremity NEURO EXAM: Normal sensorium, GCS 15, normal speech, no gross weakness of arms, no gross weakness of legs. MEDICAL DECISION MAKING: Differential diagnoses includes but not limited to ACS, unstable angina, dysrhythmia, PNA, hypervolemia/pulmonary edema, CHF exacerbation, COPD exacerbation, PE, pneumothorax, pericardial effusion, cardiac tamponade, anxiety/psychogenic, viral URI In summary, this is a 79 year old male who presented with dyspnea. Differential as above. Nursing notes and pertinent past medical records reviewed. Vital signs reviewed and the patient is hypoxic and tachycardic. Patient is tachypneic. Patient had low-flow nasal cannula applied on arrival to the emergency department with improvement. Patient is otherwise afebrile and hemodynamically stable. History and presentation revealed known lung cancer with recent radiation therapy. Patient is not anticoagulated. Given new acute hypoxic respiratory failure and tachypnea as well as mild tachycardia, I am concerned for pulmonary embolism. Plan for CT PE study. There is also discussion ongoing with worsening appetite and failure to tolerate p.o. intake. Patient has been receiving IV crystalloid as an outpatient. Plan for IV fluid resuscitation while in the emergency department. Patient will require admission to the hospital. Diagnostics interpreted by me include EKG and cardiac monitoring as listed below: -Cardiac Monitoring: An order was placed for continuous cardiac monitoring. The monitor shows a rate of 80-120s with regular rhythm. -ECG: EKG independently interpreted by me reveals normal sinus rhythm with PVCs present. Rate is [address] segment changes to suggest STEMI. Patient completed laboratory studies and imaging. Results independently interpreted by me are VBG shows evidence of hyperventilation with respiratory alkalosis. Patient's chest x-ray reveals multiple bilateral patchy infiltrates. No pneumothorax. Mild hyponatremia present. No significant MAIDA or kidney dysfunction. mild increase BUN to creatinine ratio likely from mild dehydration. Total bilirubin and AST are mildly elevated. BNP minimally elevated. Hypoalbuminemia present. The patient was managed with IVFR and duoneb. CT PE study showed bilateral pulmonary emboli. Patient does have improvement in tachypnea and air movement in all lung christianson on repeat pulmonary auscultation. Will give another duoneb. Ultimately, the decision was made to admit the patient for acute hypoxic respiratory failure 2/2 bilateral pulmonary emboli. Heparin infusion started without bolus given pancytopenia. I discussed the case with the hospitalist service via telephone/[employer] and they are agreeable to admit the patient to their services. Based on the above, including the patient's age, coexisting illnesses, labs, imaging, and exam findings the decision to treat as an inpatient. I discussed the patient with the hospitalist team who recommended admission to their services. They received the medications, treatments, interventions indicated above and their condition remained guarded. I discussed my findings with the patient and their family and they understand and agree with the treatment plan. All patient / family questions were answered to their satisfaction. Consults/Care Managements Discussions: Per MDM ER treatment provided: See above Procedures:none Critical Care: I have personally spent 51 minutes of critical care time in direct management of this patient. This includes bedside care, interpretation of diagnostic studies, and testing, discussion with consultants, patient, and family members, and other require inpatient management activities. This 51 minutes is in excess of all separately billable procedures. The chart was completed utilizing [employer] Speech voice recognition software. Grammatical errors, random word insertions, pronoun errors, and incomplete sentences are an occasional consequence of this system due to software limitations, ambient noise, and hardware issues. Any formal questions or concerns about the content, text, or information contained within the body of this dictation should be directly addressed to the physician for clarification. Past Med/Surg History Problem List (Updated 11/30/24 @ 00:01 by Nolberto Vila DO) Acute hyponatremia (Acute) Hypoalbuminemia (Acute) Pancytopenia (Acute) Bilateral pulmonary embolism (Acute) Acute respiratory alkalosis (Acute) Acute hypoxic respiratory failure (Acute) Adenocarcinoma of lung (Chronic) Lung mass CAD (coronary artery disease) Pulmonary hypertension Anemia (Acute) Emphysema lung Prostate cancer (Chronic) BPH with obstruction/lower urinary tract symptoms Hypothyroidism Diverticulosis Cholelithiasis Osteopenia Vitamin D deficiency Impaired fasting glucose Iron deficiency anemia (Chronic) Mild acid reflux (Acute) Erectile dysfunction (Acute) Hearing loss (Acute) Hyperlipidemia (Acute) Hypertension (Acute) Phimosis (Acute) GERD (gastroesophageal reflux disease) Leukopenia (Acute) Medical History (Updated 11/30/24 @ 00:01 by Nolberto Vila, DO) Adenocarcinoma of lung dx 07/2024 Mitral valve disease CABG x2 + MVR (04/09/24), [facility] CAD (coronary artery disease) CABG x2 + MVR (04/09/24), [facility] Hx of esophageal varices Hx of pulmonary hypertension History of hypothyroidism Hx of hyperlipidemia History of hypertension History of prostate cancer Dx 2021 S/P brachytherapy, XRT Hx of gastroesophageal reflux (GERD) Hx of emphysema Lung mass Noted on CTS "Reason for upcoming bronchoscopy" Rectal bleeding hx, no current issues Cervical arthritis limited ROM per patient History of iron deficiency anemia hx of transfusions within the year (03/2024) Premature ventricular contractions Follows with [facility] cardio Raynaud's disease TMJ (temporomandibular joint disorder) No issues since surgical intervention Surgical History (Updated 09/26/24 @ 16:15 by Alvina Albarran, RN) Port-A-Cath in place (09/26/24) Insertion of Magnetic Resonance Imaging Compatible Access Port- Left Subclavian Vein(Left) - Sampson Durham MD, FACS MRI clip placed in left subclavian performed utilizing fluoroscopy throughout the procedure Dr. Durham History of bronchoscopy 07/2024, robotic navigational bronchoscopy with endobronchial US, [facility] History of mitral valve replacement CABG x2 + MVR (04/09/24), [facility] Hx of brachytherapy 07/14/22 [facility] Hx of cardiac cath 03/11/24, [facility], no stents Hx of CABG CABG x2 + MVR (04/09/24), [facility] History of esophagogastroduodenoscopy (EGD) History of cataract surgery R/L History of colonoscopy History of surgery for TMJ H/O hernia repair Family History Uncle Ruptured thoracic aortic aneurysm Other Hypertension No family history of adverse response to anesthesia Denies family history of Ovarian cancer Prostate cancer Myocardial infarction Breast cancer Colorectal cancer Social History Smoking Status: Former smoker Tobacco Type: Cigarettes Age Started Using Tobacco: 14; Age Quit Using Tobacco: 38; packs per day: 0; Second Hand Exposure: No; Do You Dip or Chew Tobacco: No; Hx Alcohol Use: No Hx Substance Use: No Preferred Language: German Communication Ability: Effective Visual Impairment: Limited Hearing Ability: Use of Hearing Aid [employer] Required: No Beliefs That Will Affect Care: None marital status: Current Living Situation: Spouse current occupational status: retired current occupation: Retired How many Children do You have: 4 Feels Safe at Home: Yes Childhood Exposure to Second-Hand Smoke: Yes Diet: regular caffeine: Yes during the past year weight has: remained stable Dental Care, Regularly: Yes Physical Activity Frequency: Daily Seatbelt Use: always Sunscreen Use: Yes Do you think of yourself as: straight/heterosexual Sexual Activity: has been sexually active, but not for at least 12 months Gender Identity: Male Assistive Devices: Denture - Upper, Denture - Lower and Hearing Aid - Bilateral Allergies Allergies Allergy/AdvReac Type Severity Reaction Status Date / Time atenolol AdvReac Mild Diarrhea Verified 11/11/24 09:29 Home Meds Home Medications Medication Instructions Recorded Confirmed calcium polycarbophil 625 mg 625 mg PO BID 11/13/19 11/29/24 tablet (Fiber-Tabs) ferrous sulfate 325 mg (65 mg 325 mg PO QPM 11/13/19 11/29/24 iron) tablet (iron) multivitamin 1 tab PO QAM 03/31/22 11/29/24 latanoprost 0.005 % eye drops 1 drp OPR HS 01/11/24 11/29/24 aspirin 81 mg tablet,delayed 81 mg PO QAM 08/02/24 11/29/24 release Previous Rx's Medication Instructions Recorded atorvastatin 40 mg tablet 40 mg PO HS #90 tabs 03/11/24 esomeprazole magnesium 20 mg 20 mg PO QPM #90 caps 05/14/24 capsule,delayed release (Nexium 24HR) amoxicillin 500 mg capsule 2,000 mg (4 x 500 mg) PO .COMPLEX 05/15/24 #4 caps tamsulosin 0.4 mg capsule 0.8 mg (2 x 0.4 mg) PO QPM 07/01/24 frequency #180 caps tiotropium bromide 2.5 2 puff inhalation DAILY #4 grams 10/01/24 mcg/actuation mist for inhalation (Spiriva Respimat) mirabegron 50 mg tablet,extended 50 mg PO QPM #90 tabs 10/25/24 release 24 hr (Myrbetriq) metoprolol succinate 25 mg 25 mg PO QAM #90 tabs 11/07/24 tablet,extended release 24 hr levothyroxine 50 mcg tablet 50 mcg PO QAM #90 tabs 11/19/24 Results & Data (ED) Vital Signs Vital Signs - 24 hr 11/29/24 16:52 11/29/24 18:11 11/29/24 18:12 Temperature 36.3 C L Temperature Source Oral Pulse Rate 102 H 89 89 Pulse Rate from SpO2 Sensor 93 H Respiratory Rate 20 26 H Respiratory Effort / Characteristics Non-Labored Spontaneous Respiratory Depth Normal Blood Pressure 106/66 Blood Pressure Mean 79 Pulse Oximetry 88 L 99 Oxygen Delivery Method Room Air Sepsis Recent Fever Within 48 Hours No Sepsis New/Unexplained Change in Mental Status N/A Sepsis Action Taken by Nursing No Action Required 11/29/24 18:44 11/29/24 18:44 11/29/24 18:48 Temperature Temperature Source Pulse Rate 124 H Pulse Rate from SpO2 Sensor 123 H Respiratory Rate 28 H Respiratory Effort / Characteristics Respiratory Depth Blood Pressure 114/69 114/69 Blood Pressure Mean 97 97 Pulse Oximetry 93 Oxygen Delivery Method Sepsis Recent Fever Within 48 Hours Sepsis New/Unexplained Change in Mental Status Sepsis Action Taken by Nursing 11/29/24 19:00 11/29/24 19:00 11/29/24 19:30 Temperature Temperature Source Pulse Rate 93 H 102 H 103 H Pulse Rate from SpO2 Sensor Respiratory Rate 23 Respiratory Effort / Characteristics Respiratory Depth Blood Pressure 118/83 118/83 112/77 Blood Pressure Mean 86 86 90 Pulse Oximetry 93 96 Oxygen Delivery Method Sepsis Recent Fever Within 48 Hours Sepsis New/Unexplained Change in Mental Status Sepsis Action Taken by Nursing 11/29/24 19:30 11/29/24 19:48 Temperature Temperature Source Pulse Rate 107 H 125 H Pulse Rate from SpO2 Sensor 110 H 124 H Respiratory Rate 28 H 25 H Respiratory Effort / Characteristics Respiratory Depth Blood Pressure Blood Pressure Mean Pulse Oximetry 92 94 Oxygen Delivery Method Sepsis Recent Fever Within 48 Hours Sepsis New/Unexplained Change in Mental Status Sepsis Action Taken by Nursing Laboratory Data 11/29/24 17:45 11/29/24 17:45 Lab Results 11/29/24 11/29/24 Range/Units 17:45 18:45 WBC 1.52 L (4.8-10.8) K/ul RBC 3.03 L (4.70-6.10) M/uL Hgb 8.7 L (14.0-18.0) g/dl Hct 26.6 L (42.0-52.0) % MCV 87.8 (80.0-100.0) fL MCH 28.7 (25.0-34.0) pg MCHC 32.7 (32.0-36.0) g/dL RDW Std Deviation 57.5 H (36.4-46.3) fL RDW Coeff of Joesph 18.3 H (11.5-14.5) % Plt Count 77 L (130-400) K/uL MPV 12.2 (9.4-12.4) fL Neutrophils % (Manual) 68 % Lymphocytes % (Manual) 16 % Monocytes % (Manual) 6 % Eosinophils % (Manual) 10 % Neutrophils # (Manual) 1.03 L (1.40-6.50) K/uL Total Absolute Neuts 1.03 L (1.4-6.5) K/uL Lymphocytes # (Manual) 0.24 L (1.2-3.4) K/uL Total Abs Lymphocytes 0.24 L (1.2-3.4) K/uL Monocytes # (Manual) 0.09 L (0.11-0.59) K/uL Eosinophils # (Manual) 0.15 (0-0.50) K/uL Polychromasia 1+ PT 13.5 H (9.0-12.0) Seconds INR 1.3 H (0.9-1.1) APTT 64 H (21-31) Seconds PTT Ratio 2.4 VBG pH 7.59 H (7.36-7.41) VBG pCO2 17 L (38-50) mmHg VBG pO2 180 mmHg VBG HCO3 16 mmol/L VBG O2 Saturation 100.0 % VBG Base Excess -2.7 mEq/L Sodium 134 L (136-145) mmol/L Potassium 3.7 (3.5-5.1) mmol/L Chloride 105 (98-107) mmol/L Carbon Dioxide 21 (21-32) mmol/L Anion Gap 8 (3-11) BUN 22 (6-23) mg/dl Creatinine 1.03 (0.6-1.4) mg/dl Est Cr Clr Drug Dosing 57.1 ml/min eGFR 72.98 BUN/Creatinine Ratio 21.4 H (10-20) Glucose 101 H (70-99(Fasting)) mg/dl Calcium 8.5 L (8.6-10.3) mg/dl Magnesium 1.9 (1.7-2.4) mg/dl Total Bilirubin 1.6 H (0.2-1.0) mg/dl AST 60 H (13-39) U/L ALT 48 (7-52) U/L Alkaline Phosphatase 74 (34-104) U/L Troponin I High Sens 33.5 H (0-20) pg/ml B-Natriuretic Peptide 189 H (0-100) pg/ml Total Protein 6.1 (6.0-8.3) gm/dl Albumin 3.3 L (3.4-5.0) gm/dl Globulin 2.8 (2.5-4.0) gm/dl Albumin/Globulin Ratio 1.2 (0.9-2) Urine Color Yellow Urine Appearance Clear (Clear) Urine pH 6.0 (4.5-7.5) Ur Specific [place] 1.018 (1.000-1.030) Urine Protein Negative (Negative) Urine Glucose (UA) Negative (Negative) Urine Ketones Negative (Negative) Urine Blood Negative (Negative) Urine Nitrite Negative (Negative) Urine Bilirubin Negative (Negative) Urine Urobilinogen Negative (Negative) Ur Leukocyte Esterase Trace H (Negative) Urine WBC (Auto) 0-5 (0-5) /hpf Urine RBC (Auto) 0-2 (0-2) /hpf U Hyaline Cast (Auto) 0-2 (0-2) /lpf U Epithel Cells (Auto) 0-2 (0-2) /hpf Urine Bacteria (Auto) None Seen (None Seen) Urine Comment Adenovirus (PCR) Not Detected (NotDetected) B. pertussis DNA (PCR) Not Detected (NotDetected) B.parapertussis DNA PCR Not Detected (NotDetected) C. pneumoniae DNA (PCR) Not Detected (NotDetected) Coronavirus OC43 (PCR) Not Detected (NotDetected) Coronavirus HKU1 (PCR) Not Detected (NotDetected) Coronavirus 229E (PCR) Not Detected (NotDetected) SARS-CoV-2 (PCR) Not Detected (NotDetected) Coronavirus NL63 (PCR) Not Detected (NotDetected) Human Metapneumovir PCR Not Detected (NotDetected) Influenza Type A (PCR) Not Detected (NotDetected) Influenza Type B (PCR) Not Detected (NotDetected) M. pneumoniae (PCR) Not Detected (NotDetected) Parainfluenza 1 (PCR) Not Detected (NotDetected) Parainfluenza 2 (PCR) Not Detected (NotDetected) Parainfluenza 3 (PCR) Not Detected (NotDetected) Parainfluenza 4 (PCR) Not Detected (NotDetected) RSV (PCR) Not Detected (NotDetected) Entero/Rhino (PCR) Not Detected (NotDetected) Administered Medications Heparin Sodium/Dextrose (Heparin 97156 Unit/500 Ml D5w) 25,000 units in 500 mls @ 0.02 mls/hr IV .Q24H RITO; Protocol Stop: 12/29/24 19:44 Last Admin: 11/29/24 20:37 Dose: 1,300 units/hr, 26 mls/hr Documented By: abl Co-signed By: STACIE Discontinued Medications Albuterol (Albut/Ipratrop 3mg/0.5mg Neb 3 Ml Vial) 3 ml INH NOW STA Stop: 11/29/24 17:05 Last Admin: 11/29/24 18:00 Dose: 3 ml Documented By: YULIA Albuterol (Albut/Ipratrop 3mg/0.5mg Neb 3 Ml Vial) 3 ml NEB NOW STA; Protocol Stop: 11/29/24 18:53 Last Admin: 11/29/24 19:08 Dose: 3 ml Documented By: abl Heparin Sodium/Dextrose (Heparin Iv Adult Wt-Based Standard *No* Initial Bolus Protocol) 1 each IV ONE STA; Protocol Stop: 11/29/24 19:29 Last Admin: 11/29/24 20:11 Dose: Not Given Documented By: STACIE Parenteral Electrolytes (Plasma-Lyte A Ph 7.4) 1,000 mls @ 999 mls/hr IV .Q1H1M ONE Stop: 11/29/24 18:04 Last Infusion: 11/29/24 19:01 Dose: Infused Documented By: Admin: 11/29/24 18:00 Dose: 999 mls/hr Documented By: YULIA Ioversol (Optiray 320 125ml) 119 ml IV ONCE ONE Stop: 11/29/24 18:33 Last Admin: 11/29/24 18:32 Dose: 119 ml Documented By: EDK Imaging Data Radiologist's Impression: Chest CTA 11/29/24 17:04 Clinical history: Dyspnea Technique: Axial computed tomography images were obtained of the chest after the administration of intravenous contrast according to the CT angiogram protocol Comparison is made to the prior CT dated 09/23/2024 Findings: There is subsegmental peripheral pulmonary embolism in the lower lobes bilaterally. There is emphysema. There are slightly worsened multifocal groundglass infiltrates throughout both lungs. There is a calcified granuloma in the right lower lobe. There has been interval increase in size of multifocal nodular opacities in the right lower lobe, the largest measuring 2.8 cm and abutting the pleural surface.. There is a small right pleural effusion. There is no left pleural effusion or pneumothorax. There are multiple small and mildly enlarged mediastinal and bilateral hilar lymph nodes. The thoracic aorta appears unremarkable with no sign of aneurysm or dissection. There is no pericardial effusion. There is coronary atherosclerosis There is a small gallstone. There is a small hiatal hernia. No fracture is seen. No focal osseous lesion is evident Impression: 1. Bilateral lower lobe pulmonary embolism 2. Interval increase in size of multifocal nodular opacities in the right lower lobe. This could be inflammatory, though bronchogenic carcinoma is also possible. Close interval follow-up CT could be obtained or PET scan could be considered 3. Interval worsening of multifocal groundglass infiltrates, which may be due to viral pneumonitis 4. Emphysema 5. Mild mediastinal and bilateral hilar adenopathy 6. Small right pleural effusion 7. Small hiatal hernia 8. Cholelithiasis ACT 112: Positive. There are findings on this exam that require communication between the performing entity and the patient following Patient Test Result Information Act ([place] ACT 112) guidelines. Electronically signed by Juan Manuel Mackey 11-29-2024 7:03 PM Chest X-Ray 11/29/24 17:04 XR chest 1V portable CLINICAL HISTORY: Dyspnea COMPARISON STUDY: 10/23/2024 FINDINGS: Stable cardiac valve repair. Stable cardiomegaly with pulmonary vascular congestion. Stable left chest port with the tip just above the cavoatrial junction. There are stable diffuse interstitial and faint patchy pulmonary opacities. No pleural effusion or pneumothorax. IMPRESSION: Stable interstitial and faint pulmonary opacities Electronically signed by Que Roberts 11-29-2024 5:50 PM Discharge Plan Visit Data Chief Complaint: Referred by Doctor Stated Complaint: DOCTOR REFERRED - NEEDS FLUIDS, STOPPED EATING ED Provider: Nolberto Vila Discharge Problem: Acute hypoxic respiratory failure, Acute respiratory alkalosis, Bilateral pulmonary embolism, Pancytopenia, Hypoalbuminemia, Acute hyponatremia Patient Disposition: Admitted As Inpatient Condition: Serious Discharge Instructions Interventions: ED Discharge Assessment Last Done: 11/29/24 23:28
--- NOTE | 2024-11-29 17:50 | XRay Report ---
XR chest 1V portable CLINICAL HISTORY: Dyspnea COMPARISON STUDY: 10/23/2024 FINDINGS: Stable cardiac valve repair. Stable cardiomegaly with pulmonary vascular congestion. Stable left chest port with the tip just above the cavoatrial junction. There are stable diffuse interstitial and faint patchy pulmonary opacities. No pleural effusion or pneumothorax. IMPRESSION: Stable interstitial and faint pulmonary opacities Electronically signed by Que Roberts 11-29-2024 5:50 PM
[2024-11-29 17:53] LABS: Base Excess VBG -2.7 mEq/L; HCO3 VBG 16 mmol/L; Oxygen Saturation VBG 100.0 %; PCO2 VBG 17 mmHg (38-50); PO2 VBG 180 mmHg; pH VBG 7.59 (7.36-7.41)
[2024-11-29] MEDS: PLASMA-LYTE A 1,000 ML IV ONE (18:00)
[2024-11-29] MEDS: ALBUT/IPRATROP 3MG/0.5MG NEB 3 ML VIAL INH STA (18:00)
[2024-11-29 18:18] LABS: Alanine Aminotransferase 48.0 U/L (7-52); Albumin Globulin Ratio 1.2 (0.9-2); Albumin Level 3.3 gm/dl (3.4-5.0); Alkaline Phosphatase 74.0 U/L (34-104); Anion Gap 8.0 (3-11); Bilirubin,Total 1.6 mg/dl (0.2-1.0); Blood Urea Nitrogen 22.0 mg/dl (6-23); Calcium 8.5 mg/dl (8.6-10.3); Carbon Dioxide 21.0 mmol/L (21-32); Chloride 105.0 mmol/L (98-107); Creatinine Clr Calc Pharmacy 57.1 ml/min; Globulin 2.8 gm/dl (2.5-4.0); Glucose 101.0 mg/dl (70-99(Fasting)); Magnesium 1.9 mg/dl (1.7-2.4); Potassium 3.7 mmol/L (3.5-5.1); Sodium 134.0 mmol/L (136-145); Total Protein 6.1 gm/dl (6.0-8.3)
[2024-11-29 18:25] LABS: ALC (manual) 0.24 K/uL (1.2-3.4); ANC (manual) 1.03 K/uL (1.4-6.5); Hematocrit (blood only) 26.6 % (42.0-52.0); Hemoglobin 8.7 g/dl (14.0-18.0); Mean Corpuscular Hemoglobin 28.7 pg (25.0-34.0); Mean Corpuscular Volume 87.8 fL (80.0-100.0); Platelet Count 77 K/uL (130-400); Polychromasia 1+; RDW Standard Deviation 57.5 fL (36.4-46.3); Red Blood Count 3.03 M/uL (4.70-6.10); White Blood Count 1.52 K/ul (4.8-10.8)
[2024-11-29 18:28] LABS: INR 1.3 (0.9-1.1); Partial Thromboplastin Time 64 Seconds (21-31); Prothrombin Time 13.5 Seconds (9.0-12.0)
[2024-11-29] MEDS: OPTIRAY 320 125ml IV ONE (18:32)
[2024-11-29 18:52] LABS: Chlamydia pneumoniae PCR Not Detected (NotDetected); Coronavirus 229E PCR Not Detected (NotDetected); Coronavirus CoV-2 (COVID19)PCR Not Detected (NotDetected); Coronavirus HKU1 PCR Not Detected (NotDetected); Coronavirus NL63 PCR Not Detected (NotDetected); Coronavirus OC43PCR Not Detected (NotDetected); Human Metapneumovirus PCR Not Detected (NotDetected); Parainfluenza Virus 1 PCR Not Detected (NotDetected); Parainfluenza Virus 2 PCR Not Detected (NotDetected); Parainfluenza Virus 3 PCR Not Detected (NotDetected); Parainfluenza Virus 4 PCR Not Detected (NotDetected); Respiratory Syncytial VirusPCR Not Detected (NotDetected); Rhinovirus/Enterovirus PCR Not Detected (NotDetected)
[2024-11-29 19:02] LABS: Appearance Urine Clear (Clear); Bacteria Urine Automated None Seen (None Seen); Cast Urine Automated 0-2 /lpf (0-2); Epithelial Cell Urine Auto 0-2 /hpf (0-2); Glucose Urine UA Negative (Negative); RBC Urine Automated 0-2 /hpf (0-2); WBC Urine Automated 0-5 /hpf (0-5)
--- NOTE | 2024-11-29 19:04 | CT Scan Report ---
Clinical history: Dyspnea Technique: Axial computed tomography images were obtained of the chest after the administration of intravenous contrast according to the CT angiogram protocol Comparison is made to the prior CT dated 09/23/2024 Findings: There is subsegmental peripheral pulmonary embolism in the lower lobes bilaterally. There is emphysema. There are slightly worsened multifocal groundglass infiltrates throughout both lungs. There is a calcified granuloma in the right lower lobe. There has been interval increase in size of multifocal nodular opacities in the right lower lobe, the largest measuring 2.8 cm and abutting the pleural surface.. There is a small right pleural effusion. There is no left pleural effusion or pneumothorax. There are multiple small and mildly enlarged mediastinal and bilateral hilar lymph nodes. The thoracic aorta appears unremarkable with no sign of aneurysm or dissection. There is no pericardial effusion. There is coronary atherosclerosis There is a small gallstone. There is a small hiatal hernia. No fracture is seen. No focal osseous lesion is evident Impression: 1. Bilateral lower lobe pulmonary embolism 2. Interval increase in size of multifocal nodular opacities in the right lower lobe. This could be inflammatory, though bronchogenic carcinoma is also possible. Close interval follow-up CT could be obtained or PET scan could be considered 3. Interval worsening of multifocal groundglass infiltrates, which may be due to viral pneumonitis 4. Emphysema 5. Mild mediastinal and bilateral hilar adenopathy 6. Small right pleural effusion 7. Small hiatal hernia 8. Cholelithiasis ACT 112: Positive. There are findings on this exam that require communication between the performing entity and the patient following Patient Test Result Information Act ([place] ACT 112) guidelines. Electronically signed by Juan Manuel Mackey 11-29-2024 7:03 PM
[2024-11-29] MEDS: ALBUT/IPRATROP 3MG/0.5MG NEB 3 ML VIAL NEB STA (19:08)
--- NOTE | 2024-11-29 19:40 | History & Physical Report ---
Date of Service November 29, 2024 Assessment & Plan (1) Bilateral pulmonary embolism: (2) Acute hypoxic respiratory failure: (3) Adenocarcinoma of lung: (4) CAD (coronary artery disease): (5) Hypothyroidism: (6) Hypertension: (7) Hyperlipidemia: (8) GERD (gastroesophageal reflux disease): Plan 79yo male with history of HTN, HLP, CAD s/p 2V CABG in March 2024 with porcine mitral valve replacement presenting with two weeks of progressive SOB and LE edema. Patient hypoxic to 88% on room air on arrival - improved now on 4L NC saturating at 94%. Not on O2 at home. Patient found with bilateral pulmonary emboli #Pulmonary emboli - in setting of malignancy. Patient is tachycardic and mildly tachypneic. Saturating well on NC. Patient with high risk PESI score given age, gender, presence of malignancy and vital signs. -Admit to medical with telemetry -Check 2D echo -Continue heparin gtt. Family states that patient did experience a severe nosebleed in the past while on ASA. Platelets are 77. -Plan to DC on Apixaban #Acute hypoxic respiratory failure - likely multifactorial - underlying lung cancer, pulmonary emboli, possible fluid component as well given elevated BNP, small right effusion noted on CXR. Unsure if underlying PNA as well. Viral biofire panel is NEGATIVE. Procalcitonin received and is pending. -Continue supplemental O2 -Lasix 10mg IV x 1 dose ordered for the morning - may need additional dosing throughout the day -Continue Heparin gtt -If procalcitonin is elevated will initiate antibiotics #Adenocarcinoma of the lung - patient is s/p chemotherapy and XRT. Is planning to start immunotherapy in December. He is neutropenic, WBC=1.52 with N=1.03 -Maintain neutropenic precautions -Awaiting procalcitonin for possible antibiotic coverage #CAD - patient s/p CABG x 2V performed in March 2024 as well as mitral valve replacement with porcine valve -Check 2D echo -Continue ASA, Atorvastatin, Metoprolol #Hypertension - blood pressure acceptable -Continue Metoprolol #Hyperlipidemia -Continue Atorvastatin #Hypothyroidism -Continue Synthroid #Emphysema -Continue Umeclidinium -DuoNeb PRN #GERD -Continue Protonix History of Present Illness Chief Complaint: Shortness of breath Primary Care Provider: DO Benigno Das Shay is an 79-year-old male presenting with 2 weeks of progressive shortness of breath. Patient with history of lung adenocarcinoma involving the right lower lobe with metastatic disease to the mediastinal and hilar lymph nodes per PET/CT 09/11/2024 (T4N1). He completed 4 sessions of chemotherapy - last treatment reported to be 4 weeks ago. Chemotherapy has since been held due to to pancytopenia and significant thrombocytopenia. He completed radiation therapy with his last treatment being 11/21/2024. He has an appointment in December with Oncology to discuss starting Immunotherapy. Patient has been receiving IVF through the [facility] and was given 2L of crystalloid this week. He presents today with 2 weeks of progressive shortness of breath. He reports that his pulse oximetry at home is typically 95 of 96% but this week it has been in the low 80's. He also has increased bilateral LE edema. He has cough productive for sputum, occasionally hall/red in color and chills. Family also reports that he has been more fatigued at home. Poor appetite and decreased oral intake. He denies fever, chest pain, palpitations, nauseas, vomiting, diarrhea or urinary complaints. In the ER patient is hypoxic on room air - placed on 4L NC with improvement ER Course: Albuterol neb x 2 Plasmalyte 1L Heparin gtt Allergies Allergy/AdvReac Type Severity Reaction Status Date / Time atenolol AdvReac Mild Diarrhea Verified 11/11/24 09:29 Home Medications Medication Instructions Recorded Confirmed Type calcium polycarbophil 625 mg 625 mg PO BID 11/13/19 11/29/24 History tablet (Fiber-Tabs) ferrous sulfate 325 mg (65 mg 325 mg PO QPM 11/13/19 11/29/24 History iron) tablet (iron) multivitamin 1 tab PO QAM 03/31/22 11/29/24 History latanoprost 0.005 % eye drops 1 drp OPR HS 01/11/24 11/29/24 History atorvastatin 40 mg tablet 40 mg PO HS #90 tabs 03/11/24 11/29/24 Rx esomeprazole magnesium 20 mg 20 mg PO QPM #90 caps 05/14/24 11/29/24 Rx capsule,delayed release (Nexium 24HR) amoxicillin 500 mg capsule 2,000 mg (4 x 500 mg) PO .COMPLEX 02/19/25 09/05/25 Rx #4 caps tamsulosin 0.4 mg capsule 0.8 mg (2 x 0.4 mg) PO QPM 07/01/24 11/29/24 Rx frequency #180 caps aspirin 81 mg tablet,delayed 81 mg PO QAM 08/02/24 11/29/24 History release tiotropium bromide 2.5 2 puff inhalation DAILY #4 grams 10/01/24 11/29/24 Rx mcg/actuation mist for inhalation (Spiriva Respimat) mirabegron 50 mg tablet,extended 50 mg PO QPM #90 tabs 10/25/24 11/29/24 Rx release 24 hr (Myrbetriq) metoprolol succinate 25 mg 25 mg PO QAM #90 tabs 11/07/24 11/29/24 Rx tablet,extended release 24 hr levothyroxine 50 mcg tablet 50 mcg PO QAM #90 tabs 11/19/24 11/29/24 Rx Past Med/Surg History Problem List Acute hyponatremia (Acute) Hypoalbuminemia (Acute) Pancytopenia (Acute) Bilateral pulmonary embolism (Acute) Acute respiratory alkalosis (Acute) Acute hypoxic respiratory failure (Acute) Adenocarcinoma of lung (Chronic) Lung mass CAD (coronary artery disease) Pulmonary hypertension Anemia (Acute) Emphysema lung Prostate cancer (Chronic) BPH with obstruction/lower urinary tract symptoms Hypothyroidism Diverticulosis Cholelithiasis Osteopenia Vitamin D deficiency Impaired fasting glucose Iron deficiency anemia (Chronic) Mild acid reflux (Acute) Erectile dysfunction (Acute) Hearing loss (Acute) Hyperlipidemia (Acute) Hypertension (Acute) Phimosis (Acute) GERD (gastroesophageal reflux disease) Leukopenia (Acute) Medical History Adenocarcinoma of lung dx 07/2024 Mitral valve disease CABG x2 + MVR (04/09/24), [facility] CAD (coronary artery disease) CABG x2 + MVR (04/09/24), [facility] Hx of esophageal varices Hx of pulmonary hypertension History of hypothyroidism Hx of hyperlipidemia History of hypertension History of prostate cancer Dx 2021 S/P brachytherapy, XRT Hx of gastroesophageal reflux (GERD) Hx of emphysema Lung mass Noted on CTS "Reason for upcoming bronchoscopy" Rectal bleeding hx, no current issues Cervical arthritis limited ROM per patient History of iron deficiency anemia hx of transfusions within the year (03/2024) Premature ventricular contractions Follows with [facility] cardio Raynaud's disease TMJ (temporomandibular joint disorder) No issues since surgical intervention Surgical History Port-A-Cath in place (09/26/24) Insertion of Magnetic Resonance Imaging Compatible Access Port- Left Subclavian Vein(Left) - Sampson Durham MD, FACS MRI clip placed in left subclavian performed utilizing fluoroscopy throughout the procedure Dr. Durham History of bronchoscopy 07/2024, robotic navigational bronchoscopy with endobronchial US, [facility] History of mitral valve replacement CABG x2 + MVR (04/09/24), [facility] [place] Hx of brachytherapy 07/14/22 [facility] Hx of cardiac cath 03/11/24, [facility], no stents Hx of CABG CABG x2 + MVR (04/09/24), [facility] [place] History of esophagogastroduodenoscopy (EGD) History of cataract surgery R/L History of colonoscopy History of surgery for TMJ H/O hernia repair Family History Uncle Ruptured thoracic aortic aneurysm Other Hypertension No family history of adverse response to anesthesia Denies family history of Ovarian cancer Prostate cancer Myocardial infarction Breast cancer Colorectal cancer Social History Smoking Status: Former smoker Tobacco Type: Cigarettes Age Started Using Tobacco: 14; Age Quit Using Tobacco: 38; packs per day: 0; Second Hand Exposure: No; Do You Dip or Chew Tobacco: No; Hx Alcohol Use: No Hx Substance Use: No Preferred Language: Kyrgyz Communication Ability: Effective Visual Impairment: Limited Hearing Ability: Use of Hearing Aid Monotype Setter Required: No Beliefs That Will Affect Care: None marital status: Current Living Situation: Spouse current occupational status: retired current occupation: Retired How many Children do You have: 4 Feels Safe at Home: Yes Childhood Exposure to Second-Hand Smoke: Yes Diet: regular caffeine: Yes during the past year weight has: remained stable Dental Care, Regularly: Yes Physical Activity Frequency: Daily Seatbelt Use: always Sunscreen Use: Yes Do you think of yourself as: straight/heterosexual Sexual Activity: has been sexually active, but not for at least 12 months Gender Identity: Male Assistive Devices: Denture - Upper, Denture - Lower and Hearing Aid - Bilateral Review of Systems Review of Systems: All systems reviewed & are unremarkable except as noted in HPI & below Physical Exam Physical Exam: General: patient resting comfortably, NAD, non-toxic in appearance, AA&O x 4 Skin: warm, dry, intact, no rashes or lesions HEENT: NC/AT, PERRL, EOMI, anicteric sclera, conjunctiva without injection, external ear normal to inspection and nontender, nares patent, dry mucus membranes, dentition intact, no oropharyngeal lesions, neck supple, trachea midline, no LAD, no thyromegaly, no JVD Heart: +S1/S2, regular, no m/r/g, port in left chest wall nontender, no bleeding/erythema Lungs: equal air entry bilaterally, no rales/rhonchi/wheezes Abd: +BS, soft, NT/ND, no masses/organomegaly/ascites Ext: warm, 2+ pulses in UE/LE bilaterally, no clubbing/cyanosis, 3+ edema pitting to the knees bilaterally Neuro: nonfocal, patient AA&O x 4, speech intact, no facial droop, moving all extremities on command with equal strength 5/5 Results & Data Results & Data Vital Signs (Past 12 Hours) Vital Signs Temp Pulse Resp BP Pulse Ox O2 Del Method 11/29/24 19:00 93 H 118/83 11/29/24 18:48 124 H 28 H 93 11/29/24 18:44 114/69 11/29/24 18:44 114/69 11/29/24 18:12 89 26 H 99 11/29/24 18:11 89 11/29/24 16:52 36.3 C L 102 H 20 106/66 88 L Room Air Laboratory Results Laboratory Results WBC 1.52 K/ul (4.8-10.8) L 11/29/24 17:45 RBC 3.03 M/uL (4.70-6.10) L 11/29/24 17:45 Hgb 8.7 g/dl (14.0-18.0) L 11/29/24 17:45 Hct 26.6 % (42.0-52.0) L 11/29/24 17:45 MCV 87.8 fL (80.0-100.0) 11/29/24 17:45 MCH 28.7 pg (25.0-34.0) 11/29/24 17:45 MCHC 32.7 g/dL (32.0-36.0) 11/29/24 17:45 RDW Std Deviation 57.5 fL (36.4-46.3) H 11/29/24 17:45 RDW Coeff of Joesph 18.3 % (11.5-14.5) H 11/29/24 17:45 Plt Count 77 K/uL (130-400) L 11/29/24 17:45 MPV 12.2 fL (9.4-12.4) 11/29/24 17:45 Neutrophils % (Manual) 68 % 11/29/24 17:45 Lymphocytes % (Manual) 16 % 11/29/24 17:45 Monocytes % (Manual) 6 % 11/29/24 17:45 Eosinophils % (Manual) 10 % 11/29/24 17:45 Neutrophils # (Manual) 1.03 K/uL (1.40-6.50) L 11/29/24 17:45 Total Absolute Neuts 1.03 K/uL (1.4-6.5) L 11/29/24 17:45 Lymphocytes # (Manual) 0.24 K/uL (1.2-3.4) L 11/29/24 17:45 Total Abs Lymphocytes 0.24 K/uL (1.2-3.4) L 11/29/24 17:45 Monocytes # (Manual) 0.09 K/uL (0.11-0.59) L 11/29/24 17:45 Eosinophils # (Manual) 0.15 K/uL (0-0.50) 11/29/24 17:45 Polychromasia 1+ 11/29/24 17:45 PT 13.5 Seconds (9.0-12.0) H 11/29/24 17:45 INR 1.3 (0.9-1.1) H 11/29/24 17:45 APTT 64 Seconds (21-31) H 11/29/24 17:45 PTT Ratio 2.4 11/29/24 17:45 VBG pH 7.59 (7.36-7.41) H 11/29/24 17:45 VBG pCO2 17 mmHg (38-50) L 11/29/24 17:45 VBG pO2 180 mmHg 11/29/24 17:45 VBG HCO3 16 mmol/L 11/29/24 17:45 VBG O2 Saturation 100.0 % 11/29/24 17:45 VBG Base Excess -2.7 mEq/L 11/29/24 17:45 Sodium 134 mmol/L (136-145) L 11/29/24 17:45 Potassium 3.7 mmol/L (3.5-5.1) 11/29/24 17:45 Chloride 105 mmol/L (98-107) 11/29/24 17:45 Carbon Dioxide 21 mmol/L (21-32) 11/29/24 17:45 Anion Gap 8 (3-11) 11/29/24 17:45 BUN 22 mg/dl (6-23) 11/29/24 17:45 Creatinine 1.03 mg/dl (0.6-1.4) 11/29/24 17:45 Est Cr Clr Drug Dosing 57.1 ml/min 11/29/24 17:45 eGFR 72.98 11/29/24 17:45 BUN/Creatinine Ratio 21.4 (10-20) H 11/29/24 17:45 Glucose 101 mg/dl (70-99(Fasting)) H 11/29/24 17:45 Calcium 8.5 mg/dl (8.6-10.3) L 11/29/24 17:45 Magnesium 1.9 mg/dl (1.7-2.4) 11/29/24 17:45 Total Bilirubin 1.6 mg/dl (0.2-1.0) H 11/29/24 17:45 AST 60 U/L (13-39) H 11/29/24 17:45 ALT 48 U/L (7-52) 11/29/24 17:45 Alkaline Phosphatase 74 U/L (34-104) 11/29/24 17:45 Troponin I High Sens 29.9 pg/ml (0-20) H 11/29/24 20:36 B-Natriuretic Peptide 189 pg/ml (0-100) H 11/29/24 17:45 Total Protein 6.1 gm/dl (6.0-8.3) 11/29/24 17:45 Albumin 3.3 gm/dl (3.4-5.0) L 11/29/24 17:45 Globulin 2.8 gm/dl (2.5-4.0) 11/29/24 17:45 Albumin/Globulin Ratio 1.2 (0.9-2) 11/29/24 17:45 Urine Color Yellow 11/29/24 18:45 Urine Appearance Clear (Clear) 11/29/24 18:45 Urine pH 6.0 (4.5-7.5) 11/29/24 18:45 Ur Specific [place] 1.018 (1.000-1.030) 11/29/24 18:45 Urine Protein Negative (Negative) 11/29/24 18:45 Urine Glucose (UA) Negative (Negative) 11/29/24 18:45 Urine Ketones Negative (Negative) 11/29/24 18:45 Urine Blood Negative (Negative) 11/29/24 18:45 Urine Nitrite Negative (Negative) 11/29/24 18:45 Urine Bilirubin Negative (Negative) 11/29/24 18:45 Urine Urobilinogen Negative (Negative) 11/29/24 18:45 Ur Leukocyte Esterase Trace (Negative) H 11/29/24 18:45 Urine WBC (Auto) 0-5 /hpf (0-5) 11/29/24 18:45 Urine RBC (Auto) 0-2 /hpf (0-2) 11/29/24 18:45 U Hyaline Cast (Auto) 0-2 /lpf (0-2) 11/29/24 18:45 U Epithel Cells (Auto) 0-2 /hpf (0-2) 11/29/24 18:45 Urine Bacteria (Auto) None Seen (None Seen) 11/29/24 18:45 Urine Comment 11/29/24 18:45 Adenovirus (PCR) Not Detected (NotDetected) 11/29/24 17:45 B. pertussis DNA (PCR) Not Detected (NotDetected) 11/29/24 17:45 B.parapertussis DNA PCR Not Detected (NotDetected) 11/29/24 17:45 C. pneumoniae DNA (PCR) Not Detected (NotDetected) 11/29/24 17:45 Coronavirus OC43 (PCR) Not Detected (NotDetected) 11/29/24 17:45 Coronavirus HKU1 (PCR) Not Detected (NotDetected) 11/29/24 17:45 Coronavirus 229E (PCR) Not Detected (NotDetected) 11/29/24 17:45 SARS-CoV-2 (PCR) Not Detected (NotDetected) 11/29/24 17:45 Coronavirus NL63 (PCR) Not Detected (NotDetected) 11/29/24 17:45 Human Metapneumovir PCR Not Detected (NotDetected) 11/29/24 17:45 Influenza Type A (PCR) Not Detected (NotDetected) 11/29/24 17:45 Influenza Type B (PCR) Not Detected (NotDetected) 11/29/24 17:45 M. pneumoniae (PCR) Not Detected (NotDetected) 11/29/24 17:45 Parainfluenza 1 (PCR) Not Detected (NotDetected) 11/29/24 17:45 Parainfluenza 2 (PCR) Not Detected (NotDetected) 11/29/24 17:45 Parainfluenza 3 (PCR) Not Detected (NotDetected) 11/29/24 17:45 Parainfluenza 4 (PCR) Not Detected (NotDetected) 11/29/24 17:45 RSV (PCR) Not Detected (NotDetected) 11/29/24 17:45 Entero/Rhino (PCR) Not Detected (NotDetected) 11/29/24 17:45 Impressions Chest CTA 11/29/24 17:04 Clinical history: Dyspnea Technique: Axial computed tomography images were obtained of the chest after the administration of intravenous contrast according to the CT angiogram protocol Comparison is made to the prior CT dated 09/23/2024 Findings: There is subsegmental peripheral pulmonary embolism in the lower lobes bilaterally. There is emphysema. There are slightly worsened multifocal groundglass infiltrates throughout both lungs. There is a calcified granuloma in the right lower lobe. There has been interval increase in size of multifocal nodular opacities in the right lower lobe, the largest measuring 2.8 cm and abutting the pleural surface.. There is a small right pleural effusion. There is no left pleural effusion or pneumothorax. There are multiple small and mildly enlarged mediastinal and bilateral hilar lymph nodes. The thoracic aorta appears unremarkable with no sign of aneurysm or dissection. There is no pericardial effusion. There is coronary atherosclerosis There is a small gallstone. There is a small hiatal hernia. No fracture is seen. No focal osseous lesion is evident Impression: 1. Bilateral lower lobe pulmonary embolism 2. Interval increase in size of multifocal nodular opacities in the right lower lobe. This could be inflammatory, though bronchogenic carcinoma is also possible. Close interval follow-up CT could be obtained or PET scan could be considered 3. Interval worsening of multifocal groundglass infiltrates, which may be due to viral pneumonitis 4. Emphysema 5. Mild mediastinal and bilateral hilar adenopathy 6. Small right pleural effusion 7. Small hiatal hernia 8. Cholelithiasis ACT 112: Positive. There are findings on this exam that require communication between the performing entity and the patient following Patient Test Result Information Act ([place] ACT 112) guidelines. Electronically signed by Juan Manuel Mackey 11-29-2024 7:03 PM Chest X-Ray 11/29/24 17:04 XR chest 1V portable CLINICAL HISTORY: Dyspnea COMPARISON STUDY: 10/23/2024 FINDINGS: Stable cardiac valve repair. Stable cardiomegaly with pulmonary vascular congestion. Stable left chest port with the tip just above the cavoatrial junction. There are stable diffuse interstitial and faint patchy pulmonary opacities. No pleural effusion or pneumothorax. IMPRESSION: Stable interstitial and faint pulmonary opacities Electronically signed by Que Roberts 11-29-2024 5:50 PM PG Care Time/CCT Total # of Minutes Spent Total Time Spent with Patient: Total time spent is greater than 50% in coordination of care (as documented) at patient's floor/unit and/or counseling patient: Coding Level of Care Code 96004 INT INP/OBS CARE 3/75MIN Diagnoses Bilateral pulmonary embolism I26.99 Acute hypoxic respiratory failure J96.01 Adenocarcinoma of right lung C34.91 Laterality: right CAD (coronary artery disease) I25.10 Hypothyroidism E03.9 Hypertension I10 Hyperlipidemia E78.5 GERD (gastroesophageal reflux disease) K21.9 (3) Adenocarcinoma of lung Laterality: right Qualified Code(s): C34.91 - Malignant neoplasm of unspecified part of right bronchus or lung
[2024-11-29] MEDS: Heparin IV Adult Wt-Based Standard *NO* INITIAL Bolus Protocol IV STA (20:11)
[2024-11-29] MEDS: HEPARIN 25000 UNIT/500 ML D5W 25,000 UNITS/500 ML BAG IV SCH (20:37)
[2024-11-29] MEDS ORDERED: ACETAMINOPHEN 325 MG TAB PO PRN (23:34)
[2024-11-29] MEDS ORDERED: DOCUSATE SODIUM 100 MG CAP PO PRN (23:34)
[2024-11-30] MEDS: CALCIUM POLYCARBOPHIL 625MG TAB PO SCH (00:49)
[2024-11-30] MEDS: ATORVASTATIN 40 MG TAB PO SCH (00:49)
[2024-11-30] MEDS: TAMSULOSIN HCL 0.4 MG CAP PO SCH (00:49)
[2024-11-30] MEDS: LATANOPROST 0.005% OP SOLN 2.5 ML BTL OPR SCH (01:00)
[2024-11-30 02:59] LABS: Alanine Aminotransferase 43.0 U/L (7-52); Albumin Level 3.1 gm/dl (3.4-5.0); Alkaline Phosphatase 69.0 U/L (34-104); Anion Gap 6.0 (3-11); Bilirubin,Total 1.1 mg/dl (0.2-1.0); Blood Urea Nitrogen 17.0 mg/dl (6-23); Calcium 8.4 mg/dl (8.6-10.3); Carbon Dioxide 24.0 mmol/L (21-32); Chloride 106.0 mmol/L (98-107); Creatinine Clr Calc Pharmacy 65.4 ml/min; Glucose 111.0 mg/dl (70-99(Fasting)); Potassium 3.6 mmol/L (3.5-5.1); Sodium 136.0 mmol/L (136-145); Total Protein 5.8 gm/dl (6.0-8.3)
[2024-11-30 03:20] LABS: ANTI-Xa, UFH(UnfractionatedHep 0.35 IU/ml (0.3-0.7)
[2024-11-30 03:22] LABS: INR 1.2 (0.9-1.1); Prothrombin Time 13.0 Seconds (9.0-12.0)
[2024-11-30 03:42] LABS: Hematocrit (blood only) 25.8 % (42.0-52.0); Hemoglobin 8.5 g/dl (14.0-18.0); Mean Corpuscular Hemoglobin 29.2 pg (25.0-34.0); Mean Corpuscular Volume 88.7 fL (80.0-100.0); Platelet Count 83 K/uL (130-400); RDW Standard Deviation 58.2 fL (36.4-46.3); Red Blood Count 2.91 M/uL (4.70-6.10); White Blood Count 1.57 K/ul (4.8-10.8)
[2024-11-30 03:48] LABS: Immature Granulocytes # (auto) 0.01 K/uL (0.01-0.20); Immature Granulocytes % (auto) 0.6 %
[2024-11-30] MEDS: ALBUT/IPRATROP 3MG/0.5MG NEB 3 ML VIAL NEB PRN (05:41)
[2024-11-30] MEDS: ALUMINUM/MAGNESIUM SUSP 30 ML UDC PO PRN (05:47)
[2024-11-30] MEDS: LEVOTHYROXINE SODIUM 50 MCG TABLET PO SCH (06:24)
[2024-11-30] MEDS: ASPIRIN 81 MG ECTAB PO SCH (08:13)
[2024-11-30] MEDS: FUROSEMIDE INJ 20 MG/2 ML VIAL IV SCH (08:13)
[2024-11-30] MEDS: METOPROLOL SUCC 25MG EXT REL TAB PO SCH (08:13)
[2024-11-30] MEDS: UMECLIDINIUM BROMIDE 62.5MCG/BLISTER 7 PUFFS/INHALER INH SCH (08:14)
[2024-11-30 09:04] LABS: ANTI-Xa, UFH(UnfractionatedHep 0.42 IU/ml (0.3-0.7)
--- NOTE | 2024-11-30 12:21 | XCELERA ---
[id number]
--- NOTE | 2024-11-30 12:33 | Electrocardiogram Report ---
Test Reason : Blood Pressure : */* mmHG Vent. Rate : 97 BPM Atrial Rate : 97 BPM P-R Int : 136 ms QRS Dur : 84 ms QT Int : 404 ms P-R-T Axes : 13 16 54 degrees QTcB Int : 513 ms Sinus rhythm with frequent Premature ventricular complexes Otherwise normal ECG When compared with ECG of 15-May-2024 10:05, Premature ventricular complexes are now Present Aberrant conduction is no longer Present Nonspecific T wave abnormality, improved in Inferior leads Nonspecific T wave abnormality no longer evident in Lateral leads Confirmed by Ras Urbina ([id number]) on 11/30/2024 12:32:31 PM Referred By: Janett Padilla Confirmed By: Ras Urbina
--- NOTE | 2024-11-30 22:52 | Hospitalist Progress Note ---
Date of Service November 30, 2024 Assessment & Plan (1) Bilateral pulmonary embolism: (2) Acute hypoxic respiratory failure: (3) Adenocarcinoma of lung: (4) CAD (coronary artery disease): (5) Hypothyroidism: (6) Hypertension: (7) Hyperlipidemia: (8) GERD (gastroesophageal reflux disease): Plan 79yo male with history of HTN, HLP, CAD s/p 2V CABG in March 2024 with porcine mitral valve replacement presenting with two weeks of progressive SOB and LE edema. Patient hypoxic to 88% on room air on arrival - improved now on 4L NC saturating at 94%. Not on O2 at home. Patient found with bilateral pulmonary emboli #Pulmonary emboli - in setting of malignancy. Patient is tachycardic and mildly tachypneic. Saturating well on NC. Patient with high risk PESI score given age, gender, presence of malignancy and vital signs. -Admit to medical with telemetry -Check 2D echo -Continue heparin gtt. Family states that patient did experience a severe nosebleed in the past while on ASA. Platelets are 77. -Plan to DC on Apixaban -patient continues on 6 liters nasal cannula #Acute hypoxic respiratory failure - likely multifactorial - underlying lung cancer, pulmonary emboli, possible fluid component as well given elevated BNP, small right effusion noted on CXR. Unsure if underlying PNA as well. Viral biofire panel is NEGATIVE. Procalcitonin received and is pending. -Continue supplemental O2 -Lasix 10mg IV x 1 dose ordered for the morning - may need additional dosing throughout the day -Continue Heparin gtt -If procalcitonin is elevated will initiate antibiotics #Adenocarcinoma of the lung - patient is s/p chemotherapy and XRT. Is planning to start immunotherapy in December. He is neutropenic, WBC=1.52 with N=1.03 -Maintain neutropenic precautions -Awaiting procalcitonin for possible antibiotic coverage #CAD - patient s/p CABG x 2V performed in March 2024 as well as mitral valve replacement with porcine valve -Check 2D echo -Continue ASA, Atorvastatin, Metoprolol #Hypertension - blood pressure acceptable -Continue Metoprolol #Hyperlipidemia -Continue Atorvastatin #Hypothyroidism -Continue Synthroid #Emphysema -Continue Umeclidinium -DuoNeb PRN #GERD -Continue Protonix Admission and Anticipated Discharge Date Admission Date: November 29, 2024 Subjective Patient reports he continues to be SOB. Physical Exam Constitutional: WD/WN, vitals as above Neck: trachea midline, no thyromegaly Respiratory: normal respiratory effort, lungs clear to auscultation Cardiovascular: Rate/Rhythm: + tachycardic Heart Sounds: normal S1 and normal S2 Skin: no rashes, warm and dry Results & Data Results & Data Vital Signs (Past 12 Hours) Vital Signs Temp Pulse Pulse Resp BP Pulse Ox O2 Del Method 11/30/24 20:00 Nasal Cannula 11/30/24 19:49 36.3 C L 110 H 24 147/79 H 94 Nasal Cannula 11/30/24 15:13 37.3 C 96 H 22 111/68 94 Nasal Cannula 11/30/24 14:22 103 H 11/30/24 11:47 Nasal Cannula 11/30/24 11:28 36.6 C 101 H 24 122/70 92 Nasal Cannula O2 Flow Rate 11/30/24 20:00 6 11/30/24 19:49 6 11/30/24 15:13 6.0 11/30/24 14:22 11/30/24 11:47 6 11/30/24 11:28 6.0 PG Care Time/CCT Total # of Minutes Spent Total Time Spent with Patient: Total time spent is greater than 50% in coordination of care (as documented) at patient's floor/unit and/or counseling patient: Coding Level of Care Code 90698 SUB INP/OBS CARE 3/50MIN Diagnoses Bilateral pulmonary embolism I26.99 Acute hypoxic respiratory failure J96.01 Adenocarcinoma of right lung C34.91 Laterality: right CAD (coronary artery disease) I25.10 Hypothyroidism E03.9 Hypertension I10 Hyperlipidemia E78.5 GERD (gastroesophageal reflux disease) K21.9 (3) Adenocarcinoma of lung Laterality: right Qualified Code(s): C34.91 - Malignant neoplasm of un specified part of right bronchus or lung
[2024-12-01 06:28] LABS: Hematocrit (blood only) 25.1 % (42.0-52.0); Hemoglobin 8.1 g/dl (14.0-18.0); Mean Corpuscular Hemoglobin 28.5 pg (25.0-34.0); Mean Corpuscular Volume 88.4 fL (80.0-100.0); Platelet Count 85 K/uL (130-400); RDW Standard Deviation 58.3 fL (36.4-46.3); Red Blood Count 2.84 M/uL (4.70-6.10); White Blood Count 1.33 K/ul (4.8-10.8)
[2024-12-01 06:47] LABS: Anion Gap 6.0 (3-11); Blood Urea Nitrogen 12.0 mg/dl (6-23); Calcium 8.0 mg/dl (8.6-10.3); Carbon Dioxide 25.0 mmol/L (21-32); Chloride 105.0 mmol/L (98-107); Creatinine Clr Calc Pharmacy 72.6 ml/min; Glucose 103.0 mg/dl (70-99(Fasting)); Potassium 3.7 mmol/L (3.5-5.1); Sodium 136.0 mmol/L (136-145)
[2024-12-01 06:52] LABS: ANTI-Xa, UFH(UnfractionatedHep 0.51 IU/ml (0.3-0.7)
--- NOTE | 2024-12-01 22:59 | Hospitalist Progress Note ---
Date of Service December 01, 2024 Assessment & Plan (1) Bilateral pulmonary embolism: (2) Acute hypoxic respiratory failure: (3) Adenocarcinoma of lung: (4) CAD (coronary artery disease): (5) Hypothyroidism: (6) Hypertension: (7) Hyperlipidemia: (8) GERD (gastroesophageal reflux disease): Plan 79yo male with history of HTN, HLP, CAD s/p 2V CABG in March 2024 with porcine mitral valve replacement presenting with two weeks of progressive SOB and LE edema. Patient hypoxic to 88% on room air on arrival - improved now on 4L NC saturating at 94%. Not on O2 at home. Patient found with bilateral pulmonary emboli #Pulmonary emboli - in setting of malignancy. Patient is tachycardic and mildly tachypneic. Saturating well on NC. Patient with high risk PESI score given age, gender, presence of malignancy and vital signs. -Admit to medical with telemetry -Check 2D echo -Continue heparin gtt. Family states that patient did experience a severe nosebleed in the past while on ASA. Platelets are 77. -Plan to DC on Apixaban -patient continues on 6 liters nasal cannula -If no improvement in next 24 hours, will consult pulmonary. #Acute hypoxic respiratory failure - likely multifactorial - underlying lung cancer, pulmonary emboli, possible fluid component as well given elevated BNP, small right effusion noted on CXR. Unsure if underlying PNA as well. Viral biofire panel is NEGATIVE. Procalcitonin received and is pending. -Continue supplemental O2 -Lasix 10mg IV x 1 dose ordered for the morning - may need additional dosing throughout the day -Continue Heparin gtt -If procalcitonin is negative. no signs of fever #Adenocarcinoma of the lung - patient is s/p chemotherapy and XRT. Is planning to start immunotherapy in December. He is neutropenic, WBC=1.52 with N=1.03 -Maintain neutropenic precautions -Awaiting procalcitonin for possible antibiotic coverage #CAD - patient s/p CABG x 2V performed in March 2024 as well as mitral valve replacement with porcine valve -Check 2D echo -Continue ASA, Atorvastatin, Metoprolol #Hypertension - blood pressure acceptable -Continue Metoprolol #Hyperlipidemia -Continue Atorvastatin #Hypothyroidism -Continue Synthroid #Emphysema -Continue Umeclidinium -DuoNeb PRN #GERD -Continue Protonix Admission and Anticipated Discharge Date Admission Date: November 29, 2024 Subjective 79 yo male reports no new symptoms. Continues to require 6 liters nasal cannula Physical Exam Constitutional: WD/WN, vitals as above Neck: trachea midline, no thyromegaly Respiratory: normal respiratory effort, lungs clear to auscultation Cardiovascular: Rate/Rhythm: + tachycardic Heart Sounds: normal S1 and normal S2 Skin: no rashes, warm and dry Results & Data Results & Data Vital Signs (Past 12 Hours) Vital Signs Temp Pulse Pulse Pulse Resp BP Pulse Ox 12/01/24 20:15 12/01/24 19:20 36.5 C 104 H 18 126/79 95 12/01/24 15:52 36.6 C 104 H 17 114/68 92 12/01/24 14:22 112 H 12/01/24 13:02 86 18 90 12/01/24 12:08 37.0 C 111 H 24 108/52 L O2 Del Method O2 Flow Rate 12/01/24 20:15 Nasal Cannula 6 12/01/24 19:20 High Flow Nasal Cannula 6 12/01/24 15:52 Nasal Cannula 6 12/01/24 14:22 12/01/24 13:02 Nasal Cannula 6 12/01/24 12:08 High Flow Nasal Cannula 6 PG Care Time/CCT Total # of Minutes Spent Total Time Spent with Patient: Total time spent is greater than 50% in coordination of care (as documented) at patient's floor/unit and/or counseling patient: Coding Level of Care Code 12723 SUB INP/OBS CARE 3/50MIN Diagnoses Bilateral pulmonary embolism I26.99 Acute hypoxic respiratory failure J96.01 Adenocarcinoma of right lung C34.91 Laterality: right CAD (coronary artery disease) I25.10 Hypothyroidism E03.9 Hypertension I10 Hyperlipidemia E78.5 GERD (gastroesophageal reflux disease) K21.9 (3) Adenocarcinoma of lung Laterality: right Qualified Code(s): C34.91 - Malignant neoplasm of unspecified part of right bronchus or lung
[2024-12-02] MEDS: COUGH DROP (SUGAR FREE) LOZ 24 LOZ/1 BOX BUCCAL PRN (00:32)
[2024-12-02 07:22] LABS: Hematocrit (blood only) 24.8 % (42.0-52.0); Hemoglobin 8.0 g/dl (14.0-18.0); Mean Corpuscular Hemoglobin 28.7 pg (25.0-34.0); Mean Corpuscular Volume 88.9 fL (80.0-100.0); Platelet Count 92 K/uL (130-400); RDW Standard Deviation 59.0 fL (36.4-46.3); Red Blood Count 2.79 M/uL (4.70-6.10); White Blood Count 1.15 K/ul (4.8-10.8)
[2024-12-02 07:39] LABS: Anion Gap 6.0 (3-11); Blood Urea Nitrogen 15.0 mg/dl (6-23); Calcium 8.2 mg/dl (8.6-10.3); Carbon Dioxide 25.0 mmol/L (21-32); Chloride 104.0 mmol/L (98-107); Creatinine Clr Calc Pharmacy 67.6 ml/min; Glucose 103.0 mg/dl (70-99(Fasting)); Potassium 4.0 mmol/L (3.5-5.1); Sodium 135.0 mmol/L (136-145)
[2024-12-02 07:52] LABS: ANTI-Xa, UFH(UnfractionatedHep 0.43 IU/ml (0.3-0.7)
--- NOTE | 2024-12-02 12:15 | Pulmonary Consultation ---
Date of Consultation December 02, 2024 Assessment & Plan (1) Pulmonary hypertension: (2) Lung mass: (3) Adenocarcinoma of lung: Laterality: right Qualified Code(s): C34.91 - Malignant neoplasm of unspecified part of right bronchus or lung (4) Acute hypoxic respiratory failure: (5) Bilateral pulmonary embolism: (6) Hx of emphysema: Plan Benigno Shay is an 79-year-old male with past medical history of right lung adenocarcinoma, CAD, pulmonary HTN, emphysema, hypothyroidism, GERD, HTN, esophageal varices, TMJ, and vitamin D deficiency. Patient followed by Dr. Mcbride from pulmonary. Patient initially presented to [facility] on 11/30/2024 with shortness of breath and lower extremity edema. Patient found to have bilateral lower lobe subsegmental pulmonary emboli and increased ground glass opacities in bilateral lung christianson. Emphysema -On spiriva at home -Continue Incruse while inpatient Acute hypoxic respiratory failure related to likely V/Q mismatch from PE and possible infectious or inflammatory lung pathology; pulmonary hypertension. -Maintain SpO2 > 90% -Currently on 8L HFNC. Wean to SpO2 goal. -Will start CAP coverage with ceftriaxone and azithromycin. If not improving will consider addition of corticosteroids. -Sputum culture ordered and urine legionella ordered. Consider opportunistic infections in setting of neutropenia. Acute bilateral lower lobe subsegmental pulmonary embolism provoked in setting of malignancy. -Therapeutic on heparin at 1300 units/hr. -Can transition to oral DOAC Eliquis or Xarelto -No need for transfer to tertiary facility at tis time for thrombectomy can consider if worsens. Adenocarcinoma of right lung -Followed by Heme/Onc -Plan to start Immunotherapy in December 2024 -Had done three rounds of chemo and radiation last radiation treatment Oct 2024 Thank you for allowing us to participate in this patient's care. please feel free to reach out with questions or concerns. 58 minutes is the time spent reviewing the chart, obtaining history, performing the physical exam, and updating the patient and bedside nurse. Supervising Physician Co-Signing Physician Notes I have seen and evaluated the patient with the BURLING [employer] JOINING SUPERVISOR. I agree with the documented findings and plan in addition to the following. Patient is an 79-year-old male with a history significant for right lung adenocarcinoma, pulmonary hypertension, emphysema. The patient had recently started chemo therapy however he became pancytopenic with this and his last dose was in September. The patient has been undergoing right chest radiation therapy and last received radiation therapy on 11/21/2024. The patient has been having low oxygen for the past couple weeks that was noted at home. He presented to the hospital on 11/29/2024 with worsening shortness of breath. Imaging of the chest with CTA showed bilateral lower lobe subsegmental PE. CT of the chest also noted interval worsening of multifocal GGO's, most prominent on the right and nodular opacities in the right lower lobe. Echocardiogram was obtained which unfortunately did not visualize the RV well. The patient was treated with anticoagulation. Inflammatory markers including CRP were found to be elevated. Procalcitonin was borderline. Noted to have significant neutropenia. I reviewed the CT imaging performed during this hospital stay in addition to previous CTs. There is significant haziness and GGO's on the right. Previous lesions are present. Mild adenopathy. Underlying emphysema. Pattern is concerning for a possible radiation-induced pneumonitis. Could also represent an atypical infection. We have initiated the patient on antibiotics to cover for community-acquired pneumonia. Will obtain a pneumonia workup and will also get LDH for possible PJP. Continue oxygen supplementation. Will consider adding corticosteroids with prednisone. Thank you for this consult. We will continue to follow with you. Please call us with any questions. History of Present Illness Reason for Consultation: Bilateral pulmonary embolism; acute hypoxic respiratory failure Attending Physician: Oh Frye History of Present Illness Benigno Shay is an 79-year-old male with past medical history of right lung adenocarcinoma, CAD, pulmonary HTN, emphysema, hypothyroidism, GERD, HTN, esophageal varices, TMJ, and vitamin D deficiency. Patient followed by Dr. Mcbride from pulmonary. Patient initially presented to [facility] on 11/30/2024 with shortness of breath and lower extremity edema. Of note the patient underwent a navigational bronchoscopy with biopsy of right lung lesion and EBUS with dr. Mcbride on 08/18/2024 which showed NSLC consistent with adenocarcinoma. The patient was see by Heme/onc and underwent chemotherapy in September 2024 with carboplatin and pemetrexed and radiation treatments. Unfortunately, patient had pancytopenia and had to stop after 3 weeks of treatment. Plan was for patient to start immunotherapy in December 2023. Patient states that 2 weeks ago he noticed his pulse ox which usually reads 90% or above started to drop into the 80's. On 11/30/2024 he had significant dyspnea and shortness of breath which prompted him to come to the ED. EKG showed no ischemic changes. CTA chest showed bilateral subsegmental pulmonary emboli in the lower lungs as well as increased ground glass opacities in the bilateral lungs. Patient was hemodynamically stable and did not receive thrombolytics. He was admitted to the hospitalist service and pulmonary consulted for further evaluatio nand management of his bilateral PE and acute hypoxic respiratory failure. Patient has a 40 pack year smoking history and pipe use and quit approximately 45 years ago. He does not wear oxygen at home. He is maintained on Spiriva. 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 Patient has been afebrile, procalcitonin 0.10, He has a cough with occasional phlegm production which is described as white, RVP negative. Patient on heparin gtt and therapeutic at 1300 units/hr. BNP was 189 and troponin 29. TTE showed normal LVSF, no regional wall motion abnormalities, mild concentric LV hypertrophy. EF 55-60%. Prosthetic mitral valve well seated. Mild tricuspid regurgitation and RV was not well visualized. PESI score 131 with very high risk. Allergies Allergy/AdvReac Type Severity Reaction Status Date / Time atenolol AdvReac Mild Diarrhea Verified 11/11/24 09:29 Home Medications Medication Instructions Recorded Confirmed Type calcium polycarbophil 625 mg 625 mg PO BID 11/13/19 11/29/24 History tablet (Fiber-Tabs) ferrous sulfate 325 mg (65 mg 325 mg PO QPM 11/13/19 11/29/24 History iron) tablet (iron) multivitamin 1 tab PO QAM 03/31/22 11/29/24 History latanoprost 0.005 % eye drops 1 drp OPR HS 01/11/24 11/29/24 History atorvastatin 40 mg tablet 40 mg PO HS #90 tabs 03/11/24 11/29/24 Rx esomeprazole magnesium 20 mg 20 mg PO QPM #90 caps 05/14/24 11/29/24 Rx capsule,delayed release (Nexium 24HR) amoxicillin 500 mg capsule 2,000 mg (4 x 500 mg) PO .COMPLEX 05/15/24 11/29/24 Rx #4 caps tamsulosin 0.4 mg capsule 0.8 mg (2 x 0.4 mg) PO QPM 07/01/24 11/29/24 Rx frequency #180 caps aspirin 81 mg tablet,delayed 81 mg PO QAM 08/02/24 11/29/24 History release tiotropium bromide 2.5 2 puff inhalation DAILY #4 grams 10/01/24 11/29/24 Rx mcg/actuation mist for inhalation (Spiriva Respimat) mirabegron 50 mg tablet,extended 50 mg PO QPM #90 tabs 10/25/24 11/29/24 Rx release 24 hr (Myrbetriq) metoprolol succinate 25 mg 25 mg PO QAM #90 tabs 11/07/24 11/29/24 Rx tablet,extended release 24 hr levothyroxine 50 mcg tablet 50 mcg PO QAM #90 tabs 11/19/24 11/29/24 Rx Patient History Medical History Adenocarcinoma of lung dx 07/2024 Mitral valve disease CABG x2 + MVR (04/09/24), C CAD (coronary artery disease) CABG x2 + MVR (04/09/24), [facility] Hx of esophageal varices Hx of pulmonary hypertension History of hypothyroidism Hx of hyperlipidemia History of hypertension History of prostate cancer Dx 2021 S/P brachytherapy, XRT Hx of gastroesophageal reflux (GERD) Hx of emphysema Lung mass Noted on CTS "Reason for upcoming bronchoscopy" Rectal bleeding hx, no current issues Cervical arthritis limited ROM per patient History of iron deficiency anemia hx of transfusions within the year (03/2024) Premature ventricular contractions Follows with [facility] cardio Raynaud's disease TMJ (temporomandibular joint disorder) No issues since surgical intervention Surgical History Port-A-Cath in place (09/26/24) Insertion of Magnetic Resonance Imaging Compatible Access Port- Left Subclavian Vein(Left) - Sampson Durham MD, FACS MRI clip placed in left subclavian performed utilizing fluoroscopy throughout the procedure Dr. Durham History of bronchoscopy 07/2024, robotic navigational bronchoscopy with endobronchial US, [facility] History of mitral valve replacement CABG x2 + MVR (04/09/24), [facility] Hx of brachytherapy 07/14/22 [facility] Hx of cardiac cath 03/11/24, [facility], no stents Hx of CABG CABG x2 + MVR (04/09/24), [facility] History of esophagogastroduodenoscopy (EGD) History of cataract surgery R/L History of colonoscopy History of surgery for TMJ H/O hernia repair Family History Uncle Ruptured thoracic aortic aneurysm Other Hypertension No family history of adverse response to anesthesia Denies family history of Ovarian cancer Prostate cancer Myocardial infarction Breast cancer Colorectal cancer Social History Smoking Status: Former smoker Tobacco Type: Cigarettes Age Started Using Tobacco: 14; Age Quit Using Tobacco: 38; packs per day: 0; Second Hand Exposure: No; Do You Dip or Chew Tobacco: No; Tobacco Cessation Education Requested by Patient: No Hx Alcohol Use: No Hx Substance Use: No Preferred Language: Haitian Communication Ability: Effective Visual Impairment: Limited Hearing Ability: Use of Hearing Aid Board Writer Required: No Beliefs That Will Affect Care: None marital status: Current Living Situation: Spouse Current Living Situation Comment: current occupational status: retired current occupation: Retired How many Children do You have: 4 Other Information That Helps Us Care for You: No Feels Safe at Home: Yes Safety Concerns: Feels Safe At This Time Childhood Exposure to Second-Hand Smoke: Yes Diet: regular caffeine: Yes during the past year weight has: remained stable Dental Care, Regularly: Yes Physical Activity Frequency: Daily Seatbelt Use: always Sunscreen Use: Yes Do you think of yourself as: straight/heterosexual Sexual Activity: has been sexually active, but not for at least 12 months Gender Identity: Male Assistive Devices: None Review of Systems 2 Review of Systems: All systems reviewed & are unremarkable except as noted in HPI & below Physical Exam 2 Physical Exam: VITALS: Reviewed. WEIGHT/BMI reviewed. GEN: Chronically ill, states age appearing, well-developed, NAD. PSYCH: Good Judgment. AOx3. Normal memory, mood, and affect. HEENT -Head: NC/AT; -Eyes: PERRL, EOMI. No discharge or redn ess; -Ears: External ears are normal. -Nose: Normal nares. NECK: Supple, with no masses. CV: RRR, no m/r/g. LUNGS: CTAB, no w/r/c. ABD: Soft, NT/ND, NBS, no masses or organomegaly. : N/A SKIN: Warm, well perfused. No skin rashes or abnormal lesions. MSK: No deformities, Normal gait. EXT: No clubbing, cyanosis, or edema. NEURO: Normal muscle strength and tone. No focal deficits. Results & Data Results & Data Vital Signs (Past 12 Hours) Vital Signs Temp Pulse Resp BP Pulse Ox O2 Del Method O2 Flow Rate 12/02/24 11:19 36.6 C 105 H 20 113/67 92 Nasal Cannula 8.0 12/02/24 08:29 36.6 C 131 H 22 104/61 92 Nasal Cannula 8.0 12/02/24 03:57 36.9 C 85 18 109/63 95 High Flow Nasal Cannula 8 12/02/24 00:58 36.9 C 110 H 18 120/75 90 High Flow Nasal Cannula 8 Laboratory Results 12/02/24 06:17 12/02/24 06:17 Abnormal Lab Results 12/02/24 06:17 WBC 1.15 L RBC 2.79 L Hgb 8.0 L Hct 24.8 L MCV 88.9 MCH 28.7 MCHC 32.3 RDW Std Deviation 59.0 H RDW Coeff of Joesph 18.5 H Plt Count 92 L MPV 11.1 Heparin Anti-Xa, Unfract 0.43 Sodium 135 L Potassium 4.0 Chloride 104 Carbon Dioxide 25 Anion Gap 6 BUN 15 Creatinine 0.87 Est Cr Clr Drug Dosing 67.6 eGFR 86.69 BUN/Creatinine Ratio 17.2 Glucose 103 H Calcium 8.2 L C-Reactive Protein 11.94 H Diagnostic Findings Chest CTA 11/29/24 17:04 Clinical history: Dyspnea Technique: Axial computed tomography images were obtained of the chest after the administration of intravenous contrast according to the CT angiogram protocol Comparison is made to the prior CT dated 09/23/2024 Findings: There is subsegmental peripheral pulmonary embolism in the lower lobes bilaterally. There is emphysema. There are slightly worsened multifocal groundglass infiltrates throughout both lungs. There is a calcified granuloma in the right lower lobe. There has been interval increase in size of multifocal nodular opacities in the right lower lobe, the largest measuring 2.8 cm and abutting the pleural surface.. There is a small right pleural effusion. There is no left pleural effusion or pneumothorax. There are multiple small and mildly enlarged mediastinal and bilateral hilar lymph nodes. The thoracic aorta appears unremarkable with no sign of aneurysm or dissection. There is no pericardial effusion. There is coronary atherosclerosis There is a small gallstone. There is a small hiatal hernia. No fracture is seen. No focal osseous lesion is evident Impression: 1. Bilateral lower lobe pulmonary embolism 2. Interval increase in size of multifocal nodular opacities in the right lower lobe. This could be inflammatory, though bronchogenic carcinoma is also possible. Close interval follow-up CT could be obtained or PET scan could be considered 3. Interval worsening of multifocal groundglass infiltrates, which may be due to viral pneumonitis 4. Emphysema 5. Mild mediastinal and bilateral hilar adenopathy 6. Small right pleural effusion 7. Small hiatal hernia 8. Cholelithiasis ACT 112: Positive. There are findings on this exam that require communication between the performing entity and the patient following Patient Test Result Information Act ([place] ACT 112) guidelines. Electronically signed by Juan Manuel Mackey 11-29-2024 7:03 PM Chest X-Ray 11/29/24 17:04 XR chest 1V portable CLINICAL HISTORY: Dyspnea COMPARISON STUDY: 10/23/2024 FINDINGS: Stable cardiac valve repair. Stable cardiomegaly with pulmonary vascular congestion. Stable left chest port with the tip just above the cavoatrial junction. There are stable diffuse interstitial and faint patchy pulmonary opacities. No pleural effusion or pneumothorax. IMPRESSION: Stable interstitial and faint pulmonary opacities Electronically signed by Que Roberts 11-29-2024 5:50 PM PG Care Time/CCT Total # of Minutes Spent Total Time Spent with Patient: Total time spent is greater than 50% in coordination of care (as documented) at patient's floor/unit and/or counseling patient: Coding Level of Care Code 25233 INT INP/OBS CARE 2/55MIN Diagnoses Pulmonary hypertension I27.20 Lung mass R91.8 Adenocarcinoma of right lung C34.91 Laterality: right Acute hypoxic respiratory failure J96.01 Bilateral pulmonary embolism I26.99 Hx of emphysema J43.9
[2024-12-02] MEDS: cefTRIAXone SODIUM 2,000 MG/50 ML BAG IV SCH (13:45)
[2024-12-02] MEDS: AZITHROMYCIN 250 MG TAB PO ONE (13:45)
[2024-12-02] MEDS: MELATONIN 3 MG TAB PO PRN (20:14)
--- NOTE | 2024-12-02 22:14 | Hospitalist Progress Note ---
Date of Service December 02, 2024 Assessment & Plan (1) Bilateral pulmonary embolism: (2) Acute hypoxic respiratory failure: (3) Adenocarcinoma of lung: (4) CAD (coronary artery disease): (5) Hypothyroidism: (6) Hypertension: (7) Hyperlipidemia: (8) GERD (gastroesophageal reflux disease): Plan 79yo male with history of HTN, HLP, CAD s/p 2V CABG in March 2024 with porcine mitral valve replacement presenting with two weeks of progressive SOB and LE edema. Patient hypoxic to 88% on room air on arrival - improved now on 4L NC saturating at 94%. Not on O2 at home. Patient found with bilateral pulmonary emboli #Pulmonary emboli - in setting of malignancy. Patient is tachycardic and mildly tachypneic. Saturating well on NC. Patient with high risk PESI score given age, gender, presence of malignancy and vital signs. -Admit to medical with telemetry -Check 2D echo -Continue heparin gtt. Family states that patient did experience a severe nosebleed in the past while on ASA. Platelets are 77. -Plan to DC on Apixaban -patient continues on 6 liters nasal cannula -If no improvement in next 24 hours, will consult pulmonary. -Patient on heparin, now on high flow oxygen, ordered rocephin and azithromycin. #Acute hypoxic respiratory failure - likely multifactorial - underlying lung cancer, pulmonary emboli, possible fluid component as well given elevated BNP, small right effusion noted on CXR. Unsure if underlying PNA as well. Viral biofire panel is NEGATIVE. Procalcitonin received and is pending. -Continue supplemental O2 -Lasix 10mg IV x 1 dose ordered for the morning - may need additional dosing throughout the day -Continue Heparin gtt -added antibiotics. -may add corticosteroids tomorrow though seems early for radiation pneumonitis per Rad. Onc. #Adenocarcinoma of the lung - patient is s/p chemotherapy and XRT. Is planning to start immunotherapy in December. He is neutropenic, WBC=1.52 with N=1.03 -Maintain neutropenic precautions #CAD - patient s/p CABG x 2V performed in March 2024 as well as mitral valve replacement with porcine valve -Check 2D echo -Continue ASA, Atorvastatin, Metoprolol #Hypertension - blood pressure acceptable -Continue Metoprolol #Hyperlipidemia -Continue Atorvastatin #Hypothyroidism -Continue Synthroid #Emphysema -Continue Umeclidinium -DuoNeb PRN #GERD -Continue Protonix Admission and Anticipated Discharge Date Admission Date: November 29, 2024 Subjective 79 yo male reports no improvement from yesterday. Patient continues to require high flow oxygen. Physical Exam Constitutional: WD/WN, vitals as above Neck: trachea midline, no thyromegaly Respiratory: normal respiratory effort, lungs clear to auscultation Cardiovascular: Rate/Rhythm: + tachycardic Heart Sounds: normal S1 and normal S2 Skin: no rashes, warm and dry Results & Data Results & Data Vital Signs (Past 12 Hours) Vital Signs Temp Pulse Pulse Resp BP Pulse Ox O2 Del Method 12/02/24 20:11 36.5 C 88 20 116/73 96 Nasal Cannula 12/02/24 20:10 Nasal Cannula 12/02/24 18:07 98 H 12/02/24 15:10 36.6 C 95 H 20 105/54 L 91 Nasal Cannula 12/02/24 11:19 36.6 C 105 H 20 113/67 92 Nasal Cannula O2 Flow Rate 12/02/24 20:11 6 12/02/24 20:10 8 12/02/24 18:07 12/02/24 15:10 8.0 12/02/24 11:19 8.0 PG Care Time/CCT Total # of Minutes Spent Total Time Spent with Patient: Total time spent is greater than 50% in coordination of care (as documented) at patient's floor/unit and/or counseling patient: Coding Level of Care Code 59677 SUB INP/OBS CARE 3/50MIN Diagnoses Bilateral pulmonary embolism I26.99 Acute hypoxic respiratory failure J96.01 Adenocarcinoma of right lung C34.91 Laterality: right CAD (coronary artery disease) I25.10 Hypothyroidism E03.9 Hypertension I10 Hyperlipidemia E78.5 GERD (gastroesophageal reflux disease) K21.9 (3) Adenocarcinoma of lung Laterality: right Qualified Code(s): C34.91 - Malignant neoplasm of unspecified part of right bronchus or lung
[2024-12-03 06:48] LABS: Hematocrit (blood only) 24.6 % (42.0-52.0); Hemoglobin 8.0 g/dl (14.0-18.0); Mean Corpuscular Hemoglobin 29.1 pg (25.0-34.0); Mean Corpuscular Volume 89.5 fL (80.0-100.0); Platelet Count 96 K/uL (130-400); RDW Standard Deviation 59.4 fL (36.4-46.3); Red Blood Count 2.75 M/uL (4.70-6.10); White Blood Count 1.40 K/ul (4.8-10.8)
[2024-12-03 07:17] LABS: Anion Gap 6.0 (3-11); Blood Urea Nitrogen 13.0 mg/dl (6-23); Calcium 8.0 mg/dl (8.6-10.3); Carbon Dioxide 25.0 mmol/L (21-32); Chloride 103.0 mmol/L (98-107); Creatinine Clr Calc Pharmacy 74.5 ml/min; Glucose 106.0 mg/dl (70-99(Fasting)); Potassium 3.9 mmol/L (3.5-5.1); Sodium 134.0 mmol/L (136-145)
[2024-12-03 07:21] LABS: ANTI-Xa, UFH(UnfractionatedHep 0.41 IU/ml (0.3-0.7)
[2024-12-03] MEDS: AZITHROMYCIN 250 MG TAB PO SCH (09:51)
--- NOTE | 2024-12-03 11:52 | Pulmonology Progress Note ---
Date of Service December 03, 2024 Assessment & Plan (1) Pulmonary hypertension: (2) Lung mass: (3) Adenocarcinoma of lung: Laterality: right Qualified Code(s): C34.91 - Malignant neoplasm of unspecified part of right bronchus or lung (4) Acute hypoxic respiratory failure: (5) Bilateral pulmonary embolism: (6) Hx of emphysema: Plan Benigno Shay is an 79-year-old male with past medical history of right lung adenocarcinoma, CAD, pulmonary HTN, emphysema, hypothyroidism, GERD, HTN, esophageal varices, TMJ, and vitamin D deficiency. Patient followed by Dr. Mcbirde from pulmonary. Patient initially presented to [facility] on 11/30/2024 with shortness of breath and lower extremity edema. Patient found to have bilateral lower lobe subsegmental pulmonary emboli and increased ground glass opacities in bilateral lung [place]. Emphysema -On spiriva at home -Continue Incruse while inpatient Acute hypoxic respiratory failure related to likely V/Q mismatch from PE and possible infectious or inflammatory lung pathology; pulmonary hypertension. -Maintain SpO2 > 90% -Was up to 12liters this am but weaned backdown to 8L HFNC. Wean to SpO2 goal. -Continue CAP coverage with ceftriaxone and azithromycin. Fungitell and sputum culture with PJP PCR ordered. Will hold on empiric treatment at this time will consider if clinical course worsens. -Start methylprednisolone 60mg q8h for pneumonitis. -Consider opportunistic infections in setting of neutropenia. Acute bilateral lower lobe subsegmental pulmonary embolism provoked in setting of malignancy. -Therapeutic on heparin at 1300 units/hr. -Can transition to oral DOAC Eliquis or Xarelto -No need for transfer to tertiary facility at tis time for thrombectomy can consider if worsens. Adenocarcinoma of right lung -Followed by Heme/Onc -Plan to start Immunotherapy in December 2024 -Had done three rounds of chemo and radiation last radiation treatment Oct 2024 -Will involve palliative care for goals of care discussions. Thank you for allowing us to participate in this patient's care. please feel free to reach out with questions or concerns. 42 minutes is the time spent reviewing the chart, obtaining history, performing the physical exam, and updating the patient and bedside nurse. Admission and Anticipated Discharge Date Admission Date: November 29, 2024 Supervising Physician Co-Signing Physician Notes I separately evaluated the patient for the SADAF. I discussed the assessment and plan with SADAF. Agree with the note as above unless otherwise specified. I had a lengthy discussion with the patient and the patient's at bedside. We discussed the chest CT results which I personally reviewed. The chest CT does show increasing nodular infiltrates and diffuse ground glass. Bilateral lower lobe pulmonary emboli were identified as well. Patient has pathologic stage T4 N1 disease, but clinically appears to have stage IV disease based on pet imaging and more updated CT chest imaging. He is currently being treated for community-acquired pneumonia with ceftriaxone and azithromycin. He is also on a heparin drip for bilateral PE. We have added IV methylprednisone at a dose of 60 mg every 6 today for possible radiation- induced pneumonitis. LDH is mildly elevated per prior provider. This is nonspecific at this time. Will initiate Bactrim treatment if there is no improvement in the next 12 to 24 hours in the patient's clinical condition. Obtain MRSA screen now via nares and broaden ceftriaxone to Zosyn. If the MRSA screen is positive, then start MRSA coverage with vancomycin. I discussed with the family that the differential is broad at this time including lymphogenic carcinomatosis, pneumonitis from chemoradiation and atypical infectious etiology. Diagnostic bronchoscopy at this time would be high risk and likely lead to worsening respiratory status with probably a low yield. Thus we will hold off on bronchoscopy. Will try to keep the patient on the drier take off tender side and treat him essentially as an ARDS patient with associated pulmonary hypertension due to PE. Will switch her maintenance inhalers from Incruse to budesonide and formoterol. Continue protonix. Subjective Patient subjectively states his breathing is the same as yesterday. His oxygen requirement did increase overnight to 12 liters high flow nasal cannula from 8L. Patient Weaned down back to 8L this afternoon with SpO2 94% or above. CRP continues to increase and given concern for pneumonitis methylprednisolone 60mg q8h will be started. LDH was elevated but nonspecific; will send fungitell and sputum with PJP PCR. Discussed severity of current illness coupled with lung cancer stage IIIa and patient is agreeable to talk to palliative care. Consult placed. Review of Systems 2 Review of Systems: All systems reviewed & are unremarkable except as noted in HPI & below Physical Exam 2 Physical Exam: VITALS: Reviewed. WEIGHT/BMI reviewed. GEN: Chronically ill, states age appearing, well-developed, NAD. PSYCH: Good Judgment. AOx3. Normal memory, mood, and affect. HEENT -Head: NC/AT; -Eyes: PERRL, EOMI. No discharge or redn ess; -Ears: External ears are normal. -Nose: Normal nares. NECK: Supple, with no masses. CV: RRR, no m/r/g. LUNGS: CTAB, no w/r/c. ABD: Soft, NT/ND, NBS, no masses or organomegaly. : N/A SKIN: Warm, well perfused. No skin rashes or abnormal lesions. MSK: No deformities, Normal gait. EXT: No clubbing, cyanosis, or edema. NEURO: Normal muscle strength and tone. No focal deficits. Results & Data Results & Data Vital Signs (Past 12 Hours) Vital Signs Temp Pulse Pulse Resp BP Pulse Ox O2 Del Method 12/03/24 11:09 119 H 19 103/64 91 High Flow Nasal Cannula 12/03/24 08:28 36.4 C L 112 H 18 113/68 99 High Flow Nasal Cannula 12/03/24 07:35 104 H 12/03/24 04:08 105 H 20 90 Nasal Cannula 12/03/24 02:19 36.9 C 100 H 16 111/70 96 High Flow Nasal Cannula 12/02/24 23:58 98 H O2 Flow Rate 12/03/24 11:09 12 12/03/24 08:28 12 12/03/24 07:35 12/03/24 04:08 12 12/03/24 02:19 8 12/02/24 23:58 Laboratory Results 12/03/24 06:35 12/03/24 06:35 Abnormal Lab Results 12/02/24 12/03/24 06:17 06:35 WBC 1.40 L RBC 2.75 L Hgb 8.0 L Hct 24.6 L MCV 89.5 MCH 29.1 MCHC 32.5 RDW Std Deviation 59.4 H RDW Coeff of Joesph 18.4 H Plt Count 96 L MPV 10.2 Heparin Anti-Xa, Unfract 0.41 Sodium 134 L Potassium 3.9 Chloride 103 Carbon Dioxide 25 Anion Gap 6 BUN 13 Creatinine 0.79 Est Cr Clr Drug Dosing 74.5 eGFR 89.25 BUN/Creatinine Ratio 16.5 Glucose 106 H Calcium 8.0 L Lactate Dehydrogenase 495 H C-Reactive Protein 12.26 H B-Natriuretic Peptide 102 H Diagnostic Findings Chest CTA 11/29/24 17:04 Clinical history: Dyspnea Technique: Axial computed tomography images were obtained of the chest after the administration of intravenous contrast according to the CT angiogram protocol Comparison is made to the prior CT dated 09/23/2024 Findings: There is subsegmental peripheral pulmonary embolism in the lower lobes bilaterally. There is emphysema. There are slightly worsened multifocal groundglass infiltrates throughout both lungs. There is a calcified granuloma in the right lower lobe. There has been interval increase in size of multifocal nodular opacities in the right lower lobe, the largest measuring 2.8 cm and abutting the pleural surface.. There is a small right pleural effusion. There is no left pleural effusion or pneumothorax. There are multiple small and mildly enlarged mediastinal and bilateral hilar lymph nodes. The thoracic aorta appears unremarkable with no sign of aneurysm or dissection. There is no pericardial effusion. There is coronary atherosclerosis There is a small gallstone. There is a small hiatal hernia. No fracture is seen. No focal osseous lesion is evident Impression: 1. Bilateral lower lobe pulmonary embolism 2. Interval increase in size of multifocal nodular opacities in the right lower lobe. This could be inflammatory, though bronchogenic carcinoma is also possible. Close interval follow-up CT could be obtained or PET scan could be considered 3. Interval worsening of multifocal groundglass infiltrates, which may be due to viral pneumonitis 4. Emphysema 5. Mild mediastinal and bilateral hilar adenopathy 6. Small right pleural effusion 7. Small hiatal hernia 8. Cholelithiasis ACT 112: Positive. There are findings on this exam that require communication between the performing entity and the patient following Patient Test Result Information Act ([place] ACT 112) guidelines. Electronically signed by Juan Manuel Mackey 11-29-2024 7:03 PM Chest X-Ray 11/29/24 17:04 XR chest 1V portable CLINICAL HISTORY: Dyspnea COMPARISON STUDY: 10/23/2024 FINDINGS: Stable cardiac valve repair. Stable cardiomegaly with pulmonary vascular congestion. Stable left chest port with the tip just above the cavoatrial junction. There are stable diffuse interstitial and faint patchy pulmonary opacities. No pleural effusion or pneumothorax. IMPRESSION: Stable interstitial and faint pulmonary opacities Electronically signed by Que Roberts 11-29-2024 5:50 PM PG Care Time/CCT Total # of Minutes Spent Total Time Spent with Patient: Total time spent is greater than 50% in coordination of care (as documented) at patient's floor/unit and/or counseling patient: Coding Level of Care Code 17635 SUB INP/OBS CARE 2/35MIN Diagnoses Pulmonary hypertension I27.20 Lung mass R91.8 Adenocarcinoma of right lung C34.91 Laterality: right Acute hypoxic respiratory failure J96.01 Bilateral pulmonary embolism I26.99 Hx of emphysema J43.9
[2024-12-03] MEDS: ACETAMINOPHEN 325 MG TAB PO PRN (12:52)
--- NOTE | 2024-12-03 13:28 | Palliative Care Consultation ---
Date of Consultation December 03, 2024 Assessment & Plan (1) Palliative care by specialist: Met with pt and his at bedside. Introduced Palliative Medicine and explained our role in advanced care planning, symptom management and navigation through the progression of life limiting dis ease. Patient and/or family were receptive to palliative services for goals of care discussions. Reviewed we are different from hospice, a home health nurse visiting service. (2) Counseling regarding goals of care: ACP discussion held with pt and his from 13:30 - 14:00 Pt shared that he has had increasing OBRIEN, hypoxia and poor PO intake at home for several days, leading up to admission. He shared that his life has been overall poor quality since his CABG in March of this year. He shared that he did not return to his prior health after surgery and in april they found he has developed cancer in his lungs. He shared concern that this may be due to his smoking or occupational exposure to asbestos (he worked for [employer] de[employer]). He shared that he has been since 1976 and they have 2 daughters and 6 grandchildren that all live locally. He shared that for several weeks he has been struggling with lethargy and poor appetite. His attributed this to his chemotherapy and radiation treatment. Pt reports his last treatment was in the last week of October, and he has felt progressively worse since and spends most of his time in bed. Patient shared that earlier today a doctor had told him that he is too ill to receive any further cancer directed treatments and he shared awareness that he could not have chemotherapy because his "blood counts dropped too low". Patient and his express concern that he was not tolerating cancer treatment well and the symptom burden was very high. Pt states that he feels only modestly better since admission and has ongoing profound weakness and OBRIEN. He shared that he does not have oxygen at home but does have a pOx monitor and checks it frequently. He reports that for last 2 weeks it has been in low 80s and he has felt disoriented and drowsy. Discussed that pt remains dyspneic on HFNC and encouraged them to consider what he would want if his oxygen demand continued to increase to the point of requiring intubation. While the patient shared that he would not wish to be intubated, his questioned the need for such discussion. I helped them understand that the pt is very ill and despite him feeling clearer of mind, he continues to require increasing amounts of supplemental oxygen. Helped them understand the importance of GOC discussions while pt is clear of mind enough to express his wishes and it is not an emergent situation. Pt shared that he would not want to be dependent on a machine to keep him alive and requests DNI. He shared that he remains hopeful that he can get through this bump in the road and regain enough strength and health to undergo immunotherapy. However he requests no aggressive measures to keep him alive in the event of further respiratory c ompromise. Patient's at this time left the room, stating that she needed to get home to take care of her dogs. Discussed code status and helped patient understand that CPR is only done after a person has and involves uncomfortable and invasive procedures that, if successful. have high risk of multiple complications including but not limited to rib fractures, pneumo/hemothorax, MAIDA, ventilator dependence, anoxic brain injury, and senior care/permanent cognitive and functional deficits. CPR survival: Only about 10% of patients who have ecd-hy-budcqllh sudden cardiac arrest survive to hospital discharge, with many survivors having neurologic impairment. This rate is even lower among patients with serious coexisting conditions, ie chance of survival to hospital discharge for in-ho spital CPR in older people is low to moderate (15%) and decreases with age, comorbidities, performance status and frailty: for pts > 70 yo, more than half of the patients who initially survived resuscitation in the hospital before hospital discharge. The pooled survival to discharge after in-hospital CPR was 18% for patients between 70 and 79 years old, 15% for patients between 80 and 89 years old and 11% for patients of 90 years and older. (Rafael HERNANDEZY, Rudi LJ, Ally F, et al. Trends in short- and long-term survival among fjb-ps-rqajrgsv cardiac arrest patients alive at hospital arrival. Circulation 2014;130:1883- 1890. AND Isabena C, Camilo T, Rasrichah R, et al. Performance of clinical risk scores to predict mortality and neurological outcome in cardiac arrest patients. Resuscitation 2019;136:21-29.) Pt requests DNR/DNI status, but wishes all other life promoting therapies to continue. Plan DNR/DNI History of Present Illness Reason for Consultation: goals of care Requesting Physician: Rayo HUYNH Attending Physician: Oh Frye History of Present Illness Benigno Shay is an 79y male with a history significant for right lung adenocarcinoma, pulmonary hypertension, CAD, HTN, and emphysema admitted on 11/29/24 after 2 weeks of progressive shortness of breath, bilateral LE edema, productive cough and fatigue . Patient with history of lung adenocarcinoma involving the right lower lobe with metastatic disease to the mediastinal and hilar lymph nodes per PET/CT 09/11/2024 (T4N1). He completed 4 sessions of chemotherapy - last treatment reported to be 4 weeks ago. Chemotherapy has since been held due to to pancytopenia and significant thrombocytopenia. He completed radiation therapy with his last treatment being 11/21/2024. He has an appointment in December with Oncology to discuss starting Immunotherapy. Patient has been receiving IV[facility] the [facility] and was given 2L of crystalloid on 11/29/24. Imaging of the chest with CTA showed bilateral lower lobe subsegmental PE. CT of the chest also noted interval worsening of multifocal GGO's, most prominent on the right and nodular opacities in the right lower lobe. The patient was treated with anticoagulation and admitted for medical management. Allergies Allergy/AdvReac Type Severity Reaction Status Date / Time atenolol AdvReac Mild Diarrhea Verified 11/11/24 09:29 Home Medications Medication Instructions Recorded Confirmed Type calcium polycarbophil 625 mg 625 mg PO BID 11/13/19 11/29/24 History tablet (Fiber-Tabs) ferrous sulfate 325 mg (65 mg 325 mg PO QPM 11/13/19 11/29/24 History iron) tablet (iron) multivitamin 1 tab PO QAM 03/31/22 11/29/24 History latanoprost 0.005 % eye drops 1 drp OPR HS 01/11/24 11/29/24 History atorvastatin 40 mg tablet 40 mg PO HS #90 tabs 03/11/24 11/29/24 Rx esomeprazole magnesium 20 mg 20 mg PO QPM #90 caps 05/14/24 11/29/24 Rx capsule,delayed release (Nexium 24HR) amoxicillin 500 mg capsule 2,000 mg (4 x 500 mg) PO .COMPLEX 05/15/24 11/29/24 Rx #4 caps tamsulosin 0.4 mg capsule 0.8 mg (2 x 0.4 mg) PO QPM 07/01/24 11/29/24 Rx frequency #180 caps aspirin 81 mg tablet,delayed 81 mg PO QAM 08/02/24 11/29/24 History release tiotropium bromide 2.5 2 puff inhalation DAILY #4 grams 10/01/24 11/29/24 Rx mcg/actuation mist for inhalation (Spiriva Respimat) mirabegron 50 mg tablet,extended 50 mg PO QPM #90 tabs 10/25/24 11/29/24 Rx release 24 hr (Myrbetriq) metoprolol succinate 25 mg 25 mg PO QAM #90 tabs 11/07/24 11/29/24 Rx tablet,extended release 24 hr levothyroxine 50 mcg tablet 50 mcg PO QAM #90 tabs 11/19/24 11/29/24 Rx Patient History Medical History Adenocarcinoma of lung dx 07/2024 Mitral valve disease CABG x2 + MVR (04/09/24), C CAD (coronary artery disease) [place]04[place]09[place]24[place] [facility] [place] of [place] varices Hx of pulmonary hypertension History of hypothyroidism Hx of hyperlipidemia History of hypertension History of prostate cancer Dx 2021 S/P brachytherapy, XRT Hx of gastroesophageal reflux (GERD) Hx of emphysema Lung mass Noted on CTS "Reason for upcoming bronchoscopy" Rectal bleeding hx, no current issues Cervical arthritis limited ROM per patient History of iron deficiency anemia hx of transfusions within the year (03/2024) Premature ventricular contractions Follows with [facility] cardio Raynaud's disease TMJ (temporomandibular joint disorder) No issues since surgical intervention Surgical History Port-A-Cath in place (09/26/24) Insertion of Magnetic Resonance Imaging Compatible Access Port- Left Subclavian Vein(Left) - Sampson Durham MD, FACS MRI clip placed in left subclavian performed utilizing fluoroscopy throughout the procedure Dr. Durham History of bronchoscopy 07/2024, robotic navigational bronchoscopy with endobronchial US, [facility] History of mitral valve replacement CABG x2 + MVR (04/09/24), [facility] Hx of brachytherapy 07/14/22 [facility] Hx of cardiac cath 03/11/24, [facility], no stents Hx of CABG CABG [place]2 + [place]04[place]09/24[place] [facility] [place] of esophagogastroduodenoscopy (EGD) History of cataract surgery R/L History of colonoscopy History of surgery for TMJ H/O hernia repair Family History Uncle Ruptured thoracic aortic aneurysm Other Hypertension No family history of adverse response to anesthesia Denies family history of Ovarian cancer Prostate cancer Myocardial infarction Breast cancer Colorectal cancer Social History Smoking Status: Former smoker Tobacco Type: Cigarettes Age Started Using Tobacco: 14; Age Quit Using Tobacco: 38; packs per day: 0; Second Hand Exposure: No; Do You Dip or Chew Tobacco: No; Tobacco Cessation Education Requested by Patient: No Hx Alcohol Use: No Hx Substance Use: No Preferred Language: Prydeinig Communication Ability: Effective Visual Impairment: Limited Hearing Ability: Use of Hearing Aid Behavioral Assistant Required: No Beliefs That Will Affect Care: None marital status: Current Living Situation: Spouse Current Living Situation Comment: current occupational status: retired current occupation: Retired How many Children do You have: 4 Other Information That Helps Us Care for You: No Feels Safe at Home: Yes Safety Concerns: Feels Safe At This Time Childhood Exposure to Second-Hand Smoke: Yes Diet: regular caffeine: Yes during the past year weight has: remained stable Dental Care, Regularly: Yes Physical Activity Frequency: Daily Seatbelt Use: always Sunscreen Use: Yes Do you think of yourself as: straight/heterosexual Sexual Activity: has been sexually active, but not for at least 12 months Gender Identity: Male Assistive Devices: None Review of Systems Review of Systems: All systems reviewed & are unremarkable except as noted in HPI & below Physical Exam Constitutional: WD/WN, vitals as above Eyes: PERRL, conjunctivae normal, anicteric sclerae Neck: trachea midline, no thyromegaly Respiratory: + uses accessory muscles, + cough and ab le to speak in complete sentences OBRIEN and conversational dyspnea noted Cardiovascular: RRR, no murmur, no edema Gastrointestinal (Abdomen): normal bowel sounds, soft, nontender, no hepatosplenomegaly Musculoskeletal: generalized weakness Skin: no rashes, warm and dry Neurologic: PERRL, EOMI, accommodation nl, no face palsy, no dysarthria Psychiatric: A+Ox3, euthymic affect Genitourinary: voiding dark pietro urine without difficulty. Results & Data Vital Signs (Past 12 Hours) Vital Signs Temp Pulse Pulse Resp BP Pulse Ox O2 Del Method 12/03/24 11:09 119 H 19 103/64 91 High Flow Nasal Cannula 12/03/24 08:28 36.4 C L 112 H 18 113/68 99 High Flow Nasal Cannula 12/03/24 07:35 104 H 12/03/24 04:08 105 H 20 90 Nasal Cannula 12/03/24 02:19 36.9 C 100 H 16 111/70 96 High Flow Nasal Cannula O2 Flow Rate 12/03/24 11:09 12 12/03/24 08:28 12 12/03/24 07:35 12/03/24 04:08 12 12/03/24 02:19 8 Laboratory Results Abnormal lab results 12/02/24 12/03/24 Range/Units 06:17 06:35 WBC 1.40 L (4.8-10.8) K/ul RBC 2.75 L (4.70-6.10) M/uL Hgb 8.0 L (14.0-18.0) g/dl Hct 24.6 L (42.0-52.0) % RDW Std Deviation 59.4 H (36.4-46.3) fL RDW Coeff of Joesph 18.4 H (11.5-14.5) % Plt Count 96 L (130-400) K/uL Sodium 134 L (136-145) mmol/L Glucose 106 H (70-99(Fasting)) mg/dl Calcium 8.0 L (8.6-10.3) mg/dl Lactate Dehydrogenase 495 H (86-244) U/L C-Reactive Protein 12.26 H (0-0.5) mg/dl B-Natriuretic Peptide 102 H (0-100) pg/ml Diagnostic Findings Chest CTA 11/29/24 17:04 Clinical history: Dyspnea Technique: Axial computed tomography images were obtained of the chest after the administration of intravenous contrast according to the CT angiogram protocol Comparison is made to the prior CT dated 09/23/2024 Findings: There is subsegmental peripheral pulmonary embolism in the lower lobes bilaterally. There is emphysema. There are slightly worsened multifocal groundglass infiltrates throughout both lungs. There is a calcified granuloma in the right lower lobe. There has been interval increase in size of multifocal nodular opacities in the right lower lobe, the largest measuring 2.8 cm and abutting the pleural surface.. There is a small right pleural effusion. There is no left pleural effusion or pneumothorax. There are multiple small and mildly enlarged mediastinal and bilateral hilar lymph nodes. The thoracic aorta appears unremarkable with no sign of aneurysm or dissection. There is no pericardial effusion. There is coronary atherosclerosis There is a small gallstone. There is a small hiatal hernia. No fracture is seen. No focal osseous lesion is evident Impression: 1. Bilateral lower lobe pulmonary embolism 2. Interval increase in size of multifocal nodular opacities in the right lower lobe. This could be inflammatory, though bronchogenic carcinoma is also possible. Close interval follow-up CT could be obtained or PET scan could be considered 3. Interval worsening of multifocal groundglass infiltrates, which may be due to viral pneumonitis 4. Emphysema 5. Mild mediastinal and bilateral hilar adenopathy 6. Small right pleural effusion 7. Small hiatal hernia 8. Cholelithiasis ACT 112: Positive. There are findings on this exam that require communication between the performing entity and the patient following Patient Test Result Information Act ([place] ACT 112) guidelines. Electronically signed by Juan Manuel Mackey 11-29-2024 7:03 PM Chest X-Ray 11/29/24 17:04 XR chest 1V portable CLINICAL HISTORY: Dyspnea COMPARISON STUDY: 10/23/2024 FINDINGS: Stable cardiac valve repair. Stable cardiomegaly with pulmonary vascular congestion. Stable left chest port with the tip just above the cavoatrial junction. There are stable diffuse interstitial and faint patchy pulmonary opacities. No pleural effusion or pneumothorax. IMPRESSION: Stable interstitial and faint pulmonary opacities Electronically signed by Que Roberts 11-29-2024 5:50 PM Medications Administered Current Inpatient Medications Acetaminophen (Acetaminophen 325 Mg Tab) 650 mg PO Q4H PRN PRN Reason: Pain or Fever Stop: 12/29/24 23:33 Last Admin: 12/03/24 12:52 Dose: 650 mg Al Hydrox/Mg Hydrox/Simethicone (Aluminum/Magnesium Susp 30 Ml Udc) 15 ml PO Q6H PRN PRN Reason: Heartburn Stop: 12/30/24 05:33 Last Admin: 11/30/24 05:47 Dose: 15 ml Albuterol (Albut/Ipratrop 3mg/0.5mg Neb 3 Ml Vial) 3 ml NEB Q6R PRN; Protocol PRN Reason: Shortness Of Breath Or Wheezing Stop: 12/30/24 01:27 Last Admin: 12/03/24 04:08 Dose: 3 ml Aspirin (Aspirin 81 Mg Ectab) 81 mg PO QAM [facility] Stop: 12/30/24 08:59 Last Admin: 12/03/24 09:51 Dose: 81 mg Atorvastatin Calcium (Atorvastatin 40 Mg Tab) 40 mg PO HS [facility] Stop: 12/29/24 23:33 Last Admin: 12/02/24 20:12 Dose: 40 mg Azithromycin (Azithromycin 250 Mg Tab) [facility] [place] Stop: 12/08/24 08:59 Last Admin: 12/03/24 09:51 Dose: 250 mg Calcium Polycarbophil (Calcium Polycarbophil 625mg Tab) 625 mg PO BID [facility] Stop: 12/29/24 23:33 Last Admin: 12/03/24 09:51 Dose: 625 mg Docusate Sodium (Docusate Sodium 100 Mg Cap) 100 mg PO BID PRN PRN Reason: Constipation Stop: 12/29/24 23:33 Heparin Sodium/Dextrose (Heparin 37391 Unit/500 Ml D5w) 25,000 units in 500 mls @ 26 mls/hr IV .[id number] RITO; Protocol Stop: 12/29/24 19:44 Last Admin: 12/03/24 02:15 Dose: 1,300 units/hr, 26 mls/hr Ceftriaxone Sodium (Rocephin) 2,000 mg in 50 mls @ 100 mls/hr IV Q24H RITO Stop: 12/07/24 12:29 Last Infusion: 12/03/24 12:43 Dose: Infused Methylprednisolone 60 mg/ (Syringe) 0.96 mls @ 1.5 mls/min IV Q8H [facility] Stop: 01/02/25 10:29 Last Admin: 12/03/24 11:16 Dose: 1.5 mls/min Latanoprost (Latanoprost 0.005% Op Soln 2.5 Ml Btl) 1 drops OPR HS [facility] Stop: 12/29/24 23:33 Last Admin: 12/02/24 20:12 Dose: 1 drops Levothyroxine Sodium (Levothyroxine Sodium 50 Mcg Tablet) 50 mcg PO DAILYBB [facility] Stop: 12/30/24 06:29 Last Admin: 12/03/24 06:21 Dose: 50 mcg Melatonin (Melatonin 3 Mg Tab) 3 mg PO HS PRN PRN Reason: Insomnia Stop: 12/29/24 23:33 Last Admin: 12/02/24 20:14 Dose: 3 mg Menthol (Cough Drop (Sugar Free) Esteban 24 Esteban/1 Box) 1 esteban BUCCAL Q2H PRN PRN Reason: Sore Throat Stop: 01/01/25 00:15 Last Admin: 12/02/24 00:32 Dose: 1 esteban Metoprolol Succinate (Metoprolol Succ 25mg Ext Rel Tab) 25 mg PO QAM [facility] Stop: 12/30/24 08:59 Last Admin: 12/03/24 09:51 Dose: 25 mg Ondansetron HCl (Ondansetron Inj 2 Mg/Ml 2 Ml Vial) 4 mg IV Q6H PRN PRN Reason: Nausea And Vomiting Stop: 12/29/24 23:33 Pantoprazole Sodium (Pantoprazole 40 Mg Tab) 40 mg PO DAILY RITO Stop: 12/30/24 08:59 Last Admin: 12/03/24 09:52 Dose: 40 mg Tamsulosin HCl (Tamsulosin Hcl 0.4 Mg Cap) 0.8 mg PO QPM [facility] Stop: 12/29/24 23:33 Last Admin: 12/02/24 20:12 Dose: 0.8 mg Umeclidinium [place] (Umeclidinium [place] 62.5mcg/Blister 7 Puffs/Inhaler) 1 puffs INH DAILY RITO Stop: 12/30/24 08:59 Last Admin: 12/03/24 09:52 Dose: 1 puffs PG Care Time/CCT Total # of Minutes Spent Total Time Spent with Patient: Total time spent is greater than 50% in coordination of care (as documented) at patient's floor/unit and/or counseling patient: Advanced Care Planning 50734 Advanced Care Planning 30 [place] [address] IN/OBS CONSULT LVL 4,60M Patient Type New History Expanded Problem Focused Exam Expanded Problem Focused Medical Decision Making Moderate Complexity Diagnoses Palliative care by specialist Z51.5 Counseling regarding goals of care Z71.89 Additional Codes Advanced Care Planning - 92078 Advanced Care Planning 30 Min: 32587 Advanced Care Planning 30 Min ([id number])
[2024-12-03] MEDS: 4.5GM X1 IV STA (14:51)
--- NOTE | 2024-12-03 17:45 | Hospitalist Progress Note ---
Date of Service December 03, 2024 Assessment & Plan (1) Bilateral pulmonary embolism: (2) Acute hypoxic respiratory failure: (3) Adenocarcinoma of lung: (4) CAD (coronary artery disease): (5) Hypothyroidism: (6) Hypertension: (7) Hyperlipidemia: (8) GERD (gastroesophageal reflux disease): Plan 79yo male with history of HTN, HLP, CAD s/p 2V CABG in March 2024 with porcine mitral valve replacement presenting with two weeks of progressive SOB and LE edema. Patient hypoxic to 88% on room air on arrival - improved now on 4L NC saturating at 94%. Not on O2 at home. Patient found with bilateral pulmonary emboli #Pulmonary emboli - in setting of malignancy. Patient is tachycardic and mildly tachypneic. Saturating well on NC. Patient with high risk PESI score given age, gender, presence of malignancy and vital signs. -Admit to medical with telemetry -Continue heparin gtt. Family states that patient did experience a severe nosebleed in the past while on ASA. Platelets are 77. -Plan to DC on Apixaban -consulted pulmonary -Oxygenation has slowly worsened each day, antibiotics switched to Zosyn on 12/03, on high flow oxygen 10-12L on 12/03, added corticosteroids on 12/03 for possible radiation pneumonitis #Acute hypoxic respiratory failure - likely multifactorial - underlying lung cancer, pulmonary emboli, possible fluid component as well given elevated BNP, small right effusion noted on CXR. Unsure if underlying PNA as well. Viral biofire panel is NEGATIVE. -Continue supplemental O2 -Continue Heparin gtt - antibiotics and corticosteroids. #Adenocarcinoma of the lung - patient is s/p chemotherapy and XRT. Is planning to start immunotherapy in December. He is neutropenic, WBC=1.52 with N=1.03 -Maintain neutropenic precautions #antineoplastic chemotherapy induced pancytopenia pancytopenia noted on bloodwork, will monitor #CAD - patient s/p CABG x 2V performed in March 2024 as well as mitral valve replacement with porcine valve -Check 2D echo -Continue ASA, Atorvastatin, Metoprolol #Hypertension - blood pressure acceptable -Continue Metoprolol #Hyperlipidemia -Continue Atorvastatin #Hypothyroidism -Continue Synthroid #Emphysema -Continue Umeclidinium -DuoNeb PRN #GERD -Continue Protonix Admission and Anticipated Discharge Date Admission Date: November 29, 2024 Subjective Patient reports breathing better. Nurse reports his oxygen requirements have worsened. Physical Exam Constitutional: WD/WN, vitals as above Neck: trachea midline, no thyromegaly Respiratory: normal respiratory effort, lungs clear to auscultation Cardiovascular: Rate/Rhythm: + tachycardic Heart Sounds: normal S1 and normal S2 Skin: no rashes, warm and dry Results & Data Results & Data Vital Signs (Past 12 Hours) Vital Signs Temp Pulse Pulse Resp BP Pulse Ox O2 Del Method 12/03/24 16:29 36.3 C L 101 H 19 128/79 95 High Flow Nasal Cannula 12/03/24 15:00 105 H 12/03/24 11:09 119 H 19 103/64 91 High Flow Nasal Cannula 12/03/24 09:30 Nasal Cannula 12/03/24 08:28 36.4 C L 112 H 18 113/68 99 High Flow Nasal Cannula 12/03/24 07:35 104 H O2 Flow Rate 12/03/24 16:29 10 12/03/24 15:00 12/03/24 11:09 12 12/03/24 09:30 10 12/03/24 08:28 12 12/03/24 07:35 PG Care Time/CCT Total # of Minutes Spent Total Time Spent with Patient: Total time spent is greater than 50% in coordination of care (as documented) at patient's floor/unit and/or counseling patient: Coding Level of Care Code 67338 SUB INP/OBS CARE 3/50MIN Diagnoses Bilateral pulmonary embolism I26.99 Acute hypoxic respiratory failure J96.01 Adenocarcinoma of right lung C34.91 Laterality: right CAD (coronary artery disease) I25.10 Hypothyroidism E03.9 Hypertension I10 Hyperlipidemia E78.5 GERD (gastroesophageal reflux disease) K21.9 (3) Adenocarcinoma of lung Laterality: right Qualified Code(s): C34.91 - Malignant neoplasm of unspecified part of right bronchus or lung
[2024-12-03] MEDS: BUDESONIDE 0.5 MG/2 ML VIAL (PULMICORT) NEB SCH (20:05)
[2024-12-03] MEDS: FORMOTEROL 20 MCG/2 ML VIAL NEB SCH (20:05)
[2024-12-03] MEDS: PIPERACILLIN/TAZOBACTAM 4.5 GM/100 ML BAG IV SCH (20:12)
[2024-12-04] MEDS: SODIUM CHLORIDE 0.65% NA SOLN 45 ML (OCEAN) STA (03:40)
[2024-12-04] MEDS: SODIUM CHLORIDE 0.65% NA SOLN 45 ML (OCEAN) ONE (04:28)
[2024-12-04 06:59] LABS: Hematocrit (blood only) 24.0 % (42.0-52.0); Hemoglobin 7.9 g/dl (14.0-18.0); Mean Corpuscular Hemoglobin 28.9 pg (25.0-34.0); Mean Corpuscular Volume 87.9 fL (80.0-100.0); Platelet Count 102 K/uL (130-400); RDW Standard Deviation 56.2 fL (36.4-46.3); Red Blood Count 2.73 M/uL (4.70-6.10); White Blood Count 2.16 K/ul (4.8-10.8)
[2024-12-04 07:02] LABS: Anion Gap 6.0 (3-11); Blood Urea Nitrogen 17.0 mg/dl (6-23); Calcium 8.7 mg/dl (8.6-10.3); Carbon Dioxide 27.0 mmol/L (21-32); Chloride 103.0 mmol/L (98-107); Creatinine Clr Calc Pharmacy 70.3 ml/min; Glucose 174.0 mg/dl (70-99(Fasting)); Potassium 3.8 mmol/L (3.5-5.1); Sodium 136.0 mmol/L (136-145)
[2024-12-04 07:11] LABS: ANTI-Xa, UFH(UnfractionatedHep 0.48 IU/ml (0.3-0.7)
[2024-12-04 07:12] LABS: Immature Granulocytes # (auto) 0.01 K/uL (0.01-0.20); Immature Granulocytes % (auto) 0.5 %; RBC Morphology Unremarkable
[2024-12-04] MEDS: FUROSEMIDE INJ 20 MG/2 ML VIAL IV ONE (08:48)
--- NOTE | 2024-12-04 09:54 | XRay Report ---
XR chest 1V portable CLINICAL HISTORY: eval infiltrates COMPARISON STUDY: Chest radiograph and chest CT November 29, 2024. FINDINGS: Median sternotomy wires, mediastinal surgical clips and left subclavian [id number] are i n place. The suspicious right lower lobe pulmonary nodules on prior PET/CT and chest CT are obscured on this examination. Interstitial thickening and bilateral opacities have progressed since prior exam . Cardiomegaly is again noted. Underlying emphysema is better depicted on prior CT. No pneumothorax o r pleural effusion is identified. IMPRESSION: 1. Progression of bilateral airspace opacities and interstitial thickening. The findings may represen t pneumonia or pulmonary edema. 2. Suspicious right lower lobe pulmonary nodules on prior chest CT and PET/CT obscured on this exam. 3. Emphysema. ACT 112: Negative or not required by law. Electronically signed by: Mani Dimas M.D. 12/04/2024 9:53 AM
[2024-12-04] MEDS ORDERED: STAT IV Infusion **Titration per Protocol STA (10:19)
[2024-12-04] MEDS: SULFA/TRIMETH 80/16MG/ML 320 MG in DEXTROSE 5% 500 ML IV ONE (11:04)
--- NOTE | 2024-12-04 11:06 | Hospitalist Progress Note ---
Date of Service December 04, 2024 Assessment & Plan (1) Acute hypoxic respiratory failure: (2) Bilateral pulmonary embolism: (3) Atrial fibrillation with rapid ventricular response: (4) Bilateral pulmonary infiltrates: (5) Adenocarcinoma of lung: Plan 79yo male with lung cancer, CAD s/p 2V CABG in March 2024 with porcine mitral valve replacement presenting with two weeks of progressive SOB and LE edema. Patient hypoxic to 88% on room air on arrival. Not on O2 at home. Patient found with bilateral pulmonary emboli #Acute hypoxic respiratory failure - multifactorial - underlying lung cancer, pulmonary emboli, pulmonary edema, possible pneumonia/infectious process. Viral biofire panel is NEGATIVE. -significantly worsened since yesterday, now on true high flow O2 -today exacerbated by new onset of afib with RVR - control rate and gave lasix 40 mg IV x 1 for pulmonary edema -continue steroids for possible radiation pneumonitis, continue azithromycin and pip-tazo, bactrim added for PJP coverage by pulmonary -moved to PCU, discussed with pulmonary team and bedside nurses #Atrial fibrillation with rapid ventricular rate - went into this AM of 12/04. Says he has a history of afib but its not on chart and does not have typical meds, so must be remote if he had it before -gave diltiazem 10 mg IV bolus with drop in BP to 90s/60s, 20 minutes later much better rate control and BP however. Hypotension resolved with rate control. -continue with diltiazem drip today/tonight then can transition over to higher dose metoprolol, which he takes -reviewed recent TTE 12/02 - normal EF -recheck TSH - was ok May, on replacement -trial diuresis #Bilateral subsegmental pulmonary emboli - in setting of malignancy. -Continue heparin gtt. Family states that patient did experience a severe nosebleed in the past while on ASA. Has some thrombocytopenia -Plan to DC on Apixaban #Adenocarcinoma of the lung - IIIb. patient is s/p chemotherapy and XRT. Is planning to start immunotherapy in December. He was neutropenic, WBC=1.52 with N=1.03 -Maintain neutropenic precautions -ABX as above #antineoplastic chemotherapy induced pancytopenia pancytopenia noted on bloodwork, will monitor. CBC stable today #CAD - patient s/p CABG x 2V performed in March 2024 as well as mitral valve replacement with porcine valve -Echo 12/02 reassuring -Continue ASA, Atorvastatin, Metoprolol #Hypertension - blood pressure acceptable -Continue Metoprolol #Hyperlipidemia -Continue Atorvastatin #Hypothyroidism -Continue Synthroid #Emphysema -Continue Umeclidinium -DuoNeb PRN #GERD -Continue Protonix Discussed with palliative healthcare facility administrator - Mr. Shay is aware he's getting worse and prefers DNR/DNI which was confirmed today. His did not wish to speak with palliative care provider Physically in ICU but is PCU status DVT ppx - on heparin drip Admission and Anticipated Discharge Date Admission Date: November 29, 2024 Subjective Called to bedside STAT this AM because increasingly hypoxic, laboring and HR up to >160 He endorses shortness of breath, no CP. He thinks this happened because he was moved rooms last night and not on humidified O2 after being moved HE says he had afib in the past. I don't find it on chart review. Physical Exam 2 Physical Exam: Last 24h vitals reviewed GEN: ill appearing, sitting in bed HEENT: pupils equal, sclerae anicteric, moist MM RESP: labored, tachypneic, bilateral crackles throughout, diminished throughout CV: tachycardic, no murmur. Narrow complex tachycardia on monitor ABD: soft/nt/nd +BT : no luther SKIN: warm and dry, no generalized rashes NEURO: AOx person, place, and situation. Face symmetric, speech normal, moves 4 ext spontaneously and equally Results & Data Results & Data Vital Signs (Past 12 Hours) Vital Signs Temp Pulse Pulse Pulse Resp BP Pulse Ox 12/04/24 10:28 168 H 22 97 12/04/24 08:34 36.3 C L 106 H 20 134/72 91 12/04/24 07:34 18 92 12/04/24 07:19 101 H 12/04/24 03:41 36.4 C L 105 H 20 136/79 92 O2 Del Method O2 Flow Rate FiO2 12/04/24 10:28 High Flow Nasal Cannula 30 50 12/04/24 08:34 High Flow Nasal Cannula 11 12/04/24 07:34 Nasal Cannula 11 12/04/24 07:19 12/04/24 03:41 Nasal Cannula 10 Laboratory Results 12/04/24 06:11 12/04/24 06:11 WBC platelets and Hg stable overnight Xa therapeutic Na normalized, potassium 3.8 added mag 2.3 STAT EKG - personally interpreted - atrial fibrillation with rapid ventricular response STAT CXR - personally interpreted - bilateral pulmonary infiltrates, increased pulmonary edema patter compared to yesterday's film PG Care Time/CCT Total # of Minutes Spent Total Time Spent with Patient: Total time spent is greater than 50% in coordination of care (as documented) at patient's floor/unit and/or counseling patient: I personally spent 45 minutes of critical care time for this life threatening event of tachyarrhythmia with severe worsening hypoxia and hypotension. This includes reviewing chart notes, labs, Echo, CXR, EKG, examining patient, discussion with bedside nurses and pulmonary service delivery management consultant, writing orders. Coding Level of Care Code None Diagnoses Acute hypoxic respiratory failure J96.01 Bilateral pulmonary embolism I26.99 Atrial fibrillation with rapid ventricular response I48.91 Bilateral pulmonary infiltrates R91.8 Adenocarcinoma of right lung C34.91 Laterality: right (5) Adenocarcinoma of lung Laterality: right Qualified Code(s): C34.91 - Malignant neoplasm of unspecified part of right bronchus or lung
[2024-12-04] MEDS: POTASSIUM CHLORIDE CRTAB 20 MEQ TABCR PO STA (11:17)
[2024-12-04] MEDS: FUROSEMIDE 40 MG/4 ML VIAL IV ONE (11:23)
[2024-12-04] MEDS: MAGNESIUM SULFATE / D5W 1 GM/100 ML BAG IV SCH (11:23)
[2024-12-04 11:35] LABS: Magnesium 2.3 mg/dl (1.7-2.4)
[2024-12-04] MEDS: POTASSIUM CHLORIDE / WTR 10 MEQ/100 ML PLCT IV SCH (12:13)
--- NOTE | 2024-12-04 12:26 | Electrocardiogram Report ---
Test Reason : Blood Pressure : */* mmHG Vent. Rate : 166 BPM Atrial Rate : * BPM P-R Int : * ms QRS Dur : 90 ms QT Int : 306 ms P-R-T Axes : * 14 145 degrees QTcB Int : 508 ms Atrial fibrillation with rapid ventricular response Nonspecific ST and T wave abnormality Abnormal ECG When compared with ECG of 29-Nov-2024 17:23, Significant changes have occurred Confirmed by Ras Urbina ([id number]) on 12/04/2024 12:25:57 PM Referred By: Janett Padilla Confirmed By: Ras Urbina
--- NOTE | 2024-12-04 13:40 | Palliative Care Progress Note ---
Date of Service December 04, 2024 Assessment & Plan (1) Dyspnea on minimal exertion: Plan: Pt with increasing oxygen demand overnight. Currently on 40L HFNC with pOx at 90%. Pt attributes increasing oxygen demand to lack of humidification on his oxygen overnight. Pt started on steroids and broad spectrum Abx. Continue to wean oxygen as condition permits. (2) Palliative care by specialist: Plan: Palliative care will continue to follow for ongoing GOC discussions and pt / family support. (3) Counseling regarding goals of care: Plan: Met with pt at bedside, no visitors present. Discussed GOC from 12:00 - 12:30. Pt shared that he is feeling very dyspneic with even minimal exertion, he stated that he is trying to minimize his conversations to preserve his energy. He shared that he believes his oxygen demand increased because he was not on humidified oxygen overnight. He shared that he developed a dry cough which persisted through the night and drove his heart rate up and pOx down. He shared concern that he is not getting better and verbalized that he does "not feel too miserable right now". He shared that he would like to continue to optimize his health, but also shared concern that "things are not heading in a good direction". Patient reinforced his wish to not be intubated and stated "if things get much worse, I would have other thoughts" about continuing aggressive care. He expressed hope that he will stabilize and be able to be weaned off the high level of oxygen. He remains hopeful for improvement with steroids and abx to allow him to return to independent living at home. Later in afternoon, along with [facility], met with pt and his at bedside. stated that she was upset to learn this morning while talking to patient on phone that he had decompensated over night and was transferred to PCU. She was frustrated to not have gotten a call from nursing staff overnight when he was transferred. Franky gave medical updates and explained to that pt is critically ill, but has stabilized. Discussed pt's rapid heart rate and increased oxygen demand requiring transfer to higher level of care. She shared that she is hopeful that he will continue to improve and glad that he is stable. Reinforced with the pt and his that he remains critically iil with very high oxygen demand. Plan as above Admission and Anticipated Discharge Date Admission Date: November 29, 2024 Subjective assessed pt at bedside in ICU bed 11. Pt has had increasing oxygen demand overnight as well as AF with RVR. Transferred to ICU bed 11 for higher acuity. Pt now requiring 40L HFNC and on cardizem infusion for rate control. Pt with conversational dyspnea as well as dyspnea at rest. Denies any pain or other discomfort, he expressed that he is trying to conserve his energy and feels more dyspneic with even minimal exertion. Review of Systems Review of Systems: All systems reviewed & are unremarkable except as noted in Subjective Physical Exam Constitutional: WD/WN, vitals as above Eyes: PERRL, conjunctivae normal, anicteric sclerae Neck: trachea midline, no thyromegaly Respiratory: + labored breathing, + uses accessory mu scles, + cough, able to speak in complete sentences and + tachypneic Auscultation: + diminished lung sounds OBRIEN and conversational dyspnea noted Cardiovascular: RRR, no murmur, no edema Gastrointestinal (Abdomen): normal bowel sounds, soft, nontender, no hepatosplenomegaly Musculoskeletal: generalized weakness Skin: no rashes, warm and dry Neurologic: PERRL, EOMI, accommodation nl, no face palsy, no dysarthria Psychiatric: A+Ox3, euthymic affect Genitourinary: voiding dark pietro urine without difficulty. Results & Data Vital Signs (Past 12 Hours) Vital Signs Temp Pulse Pulse Pulse Resp BP Pulse Ox 12/04/24 11:00 12/04/24 10:28 168 H 22 97 12/04/24 08:44 12/04/24 08:34 36.3 C L 106 H 20 134/72 91 12/04/24 07:34 18 92 12/04/24 07:19 101 H 12/04/24 03:41 36.4 C L 105 H 20 136/79 92 O2 Del Method O2 Flow Rate FiO2 12/04/24 11:00 High Flow Nasal Cannula 12/04/24 10:28 High Flow Nasal Cannula 40 90 12/04/24 08:44 Nasal Cannula 10 12/04/24 08:34 High Flow Nasal Cannula 11 12/04/24 07:34 Nasal Cannula 11 12/04/24 07:19 12/04/24 03:41 Nasal Cannula 10 Laboratory Results Abnormal lab results 12/04/24 Range/Units 06:11 WBC 2.16 L (4.8-10.8) K/ul RBC 2.73 L (4.70-6.10) M/uL Hgb 7.9 L (14.0-18.0) g/dl Hct 24.0 L (42.0-52.0) % RDW Std Deviation 56.2 H (36.4-46.3) fL RDW Coeff of Joesph 18.0 H (11.5-14.5) % Plt Count 102 L (130-400) K/uL Lymph # (Auto) 0.18 L (1.20-3.40) K/uL [place] # (Auto) 0.09 L (0.11-0.59) K/uL BUN/Creatinine Ratio 22.1 H (10-20) Glucose 174 H (70-99(Fasting)) mg/dl C-Reactive Protein 12.38 H (0-0.5) mg/dl B-Natriuretic Peptide 181 H (0-100) pg/ml Diagnostic Findings Chest CTA 11/29/24 17:04 Clinical history: Dyspnea Technique: Axial computed tomography images were obtained of the chest after the administration of intravenous contrast according to the CT angiogram protocol Comparison is made to the prior CT dated 09/23/2024 Findings: There is subsegmental peripheral pulmonary embolism in the lower lobes bilaterally. There is emphysema. There are slightly worsened multifocal groundglass infiltrates throughout both lungs. There is a calcified granuloma in the right lower lobe. There has been interval increase in size of multifocal nodular opacities in the right lower lobe, the largest measuring 2.8 cm and abutting the pleural surface.. There is a small right pleural effusion. There is no left pleural effusion or pneumothorax. There are multiple small and mildly enlarged mediastinal and bilateral hilar lymph nodes. The thoracic aorta appears unremarkable with no sign of aneurysm or dissection. There is no pericardial effusion. There is coronary atherosclerosis There is a small gallstone. There is a small hiatal hernia. No fracture is seen. No focal osseous lesion is evident Impression: 1. Bilateral lower lobe pulmonary embolism 2. Interval increase in size of multifocal nodular opacities in the right lower lobe. This could be inflammatory, though bronchogenic carcinoma is also possible. Close interval follow-up CT could be obtained or PET scan could be considered 3. Interval worsening of multifocal groundglass infiltrates, which may be due to viral pneumonitis 4. Emphysema 5. Mild mediastinal and bilateral hilar adenopathy 6. Small right pleural effusion 7. Small hiatal hernia 8. Cholelithiasis ACT 112: Positive. There are findings on this exam that require communication between the performing entity and the patient following Patient Test Result Information Act ([place] ACT 112) guidelines. Electronically signed by Juan Manuel Mackey 11-29-2024 7:03 PM Chest X-Ray 12/04/24 09:25 XR chest 1V portable CLINICAL HISTORY: eval infiltrates COMPARISON STUDY: Chest radiograph and chest CT November 29, 2024. FINDINGS: Median sternotomy wires, mediastinal surgical clips and left subclavian [id number] are in place. The suspicious right lower lobe pulmonary nodules on prior PET/CT and chest CT are obscured on this examination. Interstitial thickening and bilateral opacities have progressed since prior exam. Cardiomegaly is again noted. Underlying emphysema is better depicted on prior CT. No pneumothorax or pleural effusion is identified. IMPRESSION: 1. Progression of bilateral airspace opacities and interstitial thickening. The findings may represent pneumonia or pulmonary edema. 2. Suspicious right lower lobe pulmonary nodules on prior chest CT and PET/CT obscured on this exam. 3. Emphysema. ACT 112: Negative or not required by law. Electronically signed by: Mani Dimas M.D. 12/04/2024 9:53 AM Medications Administered Current Inpatient Medications Acetaminophen (Acetaminophen 325 Mg Tab) 650 mg PO Q4H PRN PRN Reason: Pain or Fever Stop: 12/29/24 23:33 Last Admin: 12/04/24 03:37 Dose: 650 mg Al Hydrox/Mg Hydrox/Simethicone (Aluminum/Magnesium Susp 30 Ml Udc) 15 ml PO Q6H PRN PRN Reason: Heartburn Stop: 12/30/24 05:33 Last Admin: 11/30/24 05:47 Dose: 15 ml Albuterol (Albut/Ipratrop 3mg/0.5mg Neb 3 Ml Vial) 3 ml NEB Q6R PRN; Protocol PRN Reason: Shortness Of Breath Or Wheezing Stop: 12/30/24 01:27 Last Admin: 12/03/24 04:08 Dose: 3 ml Aspirin (Aspirin 81 Mg Ectab) 81 mg PO QAM [facility] Stop: 12/30/24 08:59 Last Admin: 12/04/24 08:48 Dose: 81 mg Atorvastatin Calcium (Atorvastatin 40 Mg Tab) 40 mg PO HS [facility] Stop: 12/29/24 23:33 Last Admin: 12/03/24 20:12 Dose: 40 mg Azithromycin (Azithromycin 250 Mg Tab) 250 mg PO QAM [facility] Stop: 12/08/24 08:59 Last Admin: 12/04/24 08:48 Dose: 250 mg Budesonide (Budesonide 0.5 Mg/2 Ml Vial (Pulmicort)) 0.5 mg NEB BIDR [facility] Stop: 01/02/25 18:59 Last Admin: 12/04/24 07:34 Dose: 0.5 mg Calcium Polycarbophil (Calcium Polycarbophil 625mg Tab) 625 mg PO BID [facility] Stop: 12/29/24 23:33 Last Admin: 12/04/24 08:48 Dose: 625 mg Docusate Sodium (Docusate Sodium 100 Mg Cap) 100 mg PO BID PRN PRN Reason: Constipation Stop: 12/29/24 23:33 Formoterol Fumarate (Formoterol 20 Mcg/2 Ml Vial) 20 mcg NEB BIDR [facility] Stop: 01/02/25 18:59 Last Admin: 12/04/24 07:34 Dose: 20 mcg Heparin Sodium/Dextrose (Heparin 41510 Unit/500 Ml D5w) 25,000 units in 500 mls @ 26 mls/hr IV .[id number] [facility]; Protocol Stop: 12/29/24 19:44 Last Titration: 12/04/24 07:26 Dose: 1,300 units/hr, 26 mls/hr Methylprednisolone 60 mg/ (Syringe) 0.96 mls @ 1.5 mls/min IV Q8H [facility] Stop: 01/02/25 10:29 Last Admin: 12/04/24 10:06 Dose: 1.5 mls/min Piperacillin Sod/Tazobactam Sod (Zosyn) 4.5 gm in 100 mls @ 25 mls/hr IV Q8H [facility]; Protocol Stop: 12/10/24 19:29 Last Admin: 12/04/24 11:52 Dose: 25 mls/hr Diltiazem HCl 125 mg/ Dextrose 125 mls @ 5 mls/hr IV .Q24H [facility]; Protocol Stop: 01/03/25 10:29 Last Admin: 12/04/24 11:02 Dose: 5 mg/hr, 5 mls/hr Magnesium Sulfate/Dextrose (Magnesium Sulfate / D5w) 1 gm in 100 mls @ 50 mls/hr IV Q2H [facility] Stop: 12/04/24 14:29 Last Admin: 12/04/24 13:26 Dose: 50 mls/hr Trimethoprim/Sulfamethoxazole (320 mg/ Dextrose) 520 mls @ 349.375 mls/hr IV Q8H [facility] Stop: 01/03/25 18:59 Latanoprost (Latanoprost 0.005% Op Soln 2.5 Ml Btl) 1 drops OPR HS [facility] Stop: 12/29/24 23:33 Last Admin: 12/03/24 20:12 Dose: 1 drops Levothyroxine Sodium (Levothyroxine Sodium 50 Mcg Tablet) 50 mcg PO DAILYBB [facility] Stop: 12/30/24 06:29 Last Admin: 12/04/24 07:05 Dose: 50 mcg Melatonin (Melatonin 3 Mg Tab) 3 mg PO HS PRN PRN Reason: Insomnia Stop: 12/29/24 23:33 Last Admin: 12/02/24 20:14 Dose: 3 mg Menthol (Cough Drop (Sugar Free) Candida 24 Candida/1 Box) 1 candida BUCCAL Q2H PRN PRN Reason: Sore Throat Stop: 01/01/25 00:15 Last Admin: 12/02/24 00:32 Dose: 1 candida Metoprolol Succinate (Metoprolol Succ 25mg Ext Rel Tab) 25 mg PO QAM [facility] Stop: 12/30/24 08:59 Last Admin: 12/04/24 08:49 Dose: 25 mg Ondansetron HCl (Ondansetron Inj 2 Mg/Ml 2 Ml Vial) 4 mg IV Q6H PRN PRN Reason: Nausea And Vomiting Stop: 12/29/24 23:33 Pantoprazole Sodium (Pantoprazole 40 Mg Tab) 40 mg PO DAILY [facility] Stop: 12/30/24 08:59 Last Admin: 12/04/24 08:49 Dose: 40 mg Tamsulosin HCl (Tamsulosin Hcl 0.4 Mg Cap) 0.8 mg PO QPM [facility] Stop: 12/29/24 23:33 Last Admin: 12/03/24 20:12 Dose: 0.8 mg PG Care Time/CCT Total # of Minutes Spent Total Time Spent with Patient: Total time spent is greater than 50% in coordination of care (as documented) at patient's floor/unit and/or counseling patient: Advanced Care Planning 09765 Advanced Care Planning 30 Min [place] [address] SUB INP/OBS CARE 2/35MIN Patient Type Established History Expanded Problem Focused Exam Expanded Problem Focused Medical Decision Making Moderate Complexity Diagnoses Dyspnea on minimal exertion R06.09 Palliative care by specialist Z51.5 Counseling regarding goals of care Z71.89 Additional Codes Advanced Care Planning - 21424 Advanced Care Planning 30 Min: 50357 Advanced Care Planning 30 Min ([id number])
--- NOTE | 2024-12-04 14:30 | Pulmonology Progress Note ---
Date of Service December 04, 2024 Assessment & Plan (1) Acute hypoxic respiratory failure: (2) Pulmonary hypertension: (3) Lung mass: (4) Adenocarcinoma of lung: Laterality: right Qualified Code(s): C34.91 - Malignant neoplasm of unspecified part of right bronchus or lung (5) Bilateral pulmonary embolism: (6) Hx of emphysema: Plan Benigno Shay is an 79-year-old male with past medical history of right lung adenocarcinoma, CAD, pulmonary HTN, emphysema, hypothyroidism, GERD, HTN, esophageal varices, TMJ, and vitamin D deficiency. Patient followed by Dr. Mcbride from pulmonary. Patient initially presented to [facility] on 11/30/2024 with shortness of breath and lower extremity edema. Patient found to have bilateral lower lobe subsegmental pulmonary emboli and increased ground glass opacities in bilateral lung [place]. 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 Atypical infection such as PJP difficult to rule out. Bactrim initiated today. Will escalate the patient's dose of IV methylprednisolone to 125 every 6h from 60 mg every 8. Beta glucan, Legionella antigen and PJP PCR from sputum is pending. Patient too unstable to tolerate bronchoscopy and unlikely to change prognosis anyway. Will continue to keep the patient on the shelf drier operator side and treat as ARDS. Otherwise, continue heparin infusion for pulmonary emboli and continue Zosyn/azithromycin for possible infective organisms causing pneumonia. Prognosis is quite poor overall given underlying metastatic malignancy and intolerance to antineoplastic agents. Admission and Anticipated Discharge Date Admission Date: November 29, 2024 Subjective Patient requiring escalating amounts of oxygen support and is now on high flow. He has also been going to [facility] with RVR. He was placed on a dill drip which dropped his pressures initially, but has not improved. He remains on a heparin infusion. He has shortness of breath with minimal activity. Occasional dry cough. No fevers or chills. Discussed with palliative care provider who is having ongoing discussions with the patient and . is fairly distraught regarding the patient's condition and is not ready to have additional palliative care discussion today. Patient has been made DNR/DNI by palliative care per his wishes as of yesterday. Review of Systems Review of Systems: All systems reviewed & are unremarkable except as noted in HPI & below Physical Exam Physical Exam: VITALS: Reviewed. WEIGHT/BMI reviewed. GEN: Chronically ill, states age appearing, well-developed, NAD. PSYCH: Good Judgment. AOx3. Normal memory, mood, and affect. HEENT -Head: NC/AT; -Eyes: PERRL, EOMI. No discharge or redn ess; -Ears: External ears are normal. -Nose: Normal nares. NECK: Supple, with no masses. CV: RRR, no m/r/g. LUNGS: Mildly increased work of breathing. Mild crackles. ABD: Soft, NT/ND, NBS, no masses or organomegaly. : N/A SKIN: Warm, well perfused. No skin rashes or abnormal lesions. MSK: No deformities, Normal gait. EXT: No clubbing, cyanosis, or edema. NEURO: Normal muscle strength and tone. No focal deficits. Results & Data Results & Data Vital Signs (Past 12 Hours) Vital Signs Temp Pulse Pulse Pulse Resp BP Pulse Ox 12/04/24 11:00 12/04/24 10:28 168 H 22 97 12/04/24 08:44 12/04/24 08:34 36.3 C L 106 H 20 134/72 91 12/04/24 07:34 18 92 12/04/24 07:19 101 H 12/04/24 03:41 36.4 C L 105 H 20 136/79 92 O2 Del Method O2 Flow Rate FiO2 12/04/24 11:00 High Flow Nasal Cannula 12/04/24 10:28 High Flow Nasal Cannula 40 90 12/04/24 08:44 Nasal Cannula 10 12/04/24 08:34 High Flow Nasal Cannula 11 12/04/24 07:34 Nasal Cannula 11 12/04/24 07:19 12/04/24 03:41 Nasal Cannula 10 PG Care Time/CCT Total # of Minutes Spent Total Time Spent with Patient: Total time spent is greater than 50% in coordination of care (as documented) at patient's floor/unit and/or counseling patient: Coding Level of Care Code 18496 SUB INP/OBS CARE 2/35MIN Diagnoses Acute hypoxic respiratory failure J96.01 Pulmonary hypertension I27.20 Lung mass R91.8 Adenocarcinoma of right lung C34.91 Laterality: right Bilateral pulmonary embolism I26.99 Hx of emphysema J43.9
--- NOTE | 2024-12-04 17:12 | Billing Data ---
Date of Service December 04, 2024 Coding Level of Care Code 03022 CRITICAL CARE
[2024-12-04] MEDS: SULFA/TRIMETH 80/16MG/ML 320 MG in DEXTROSE 5% 500 ML IV SCH (20:45)
[2024-12-05 05:31] LABS: Anion Gap 10.0 (3-11); Blood Urea Nitrogen 24.0 mg/dl (6-23); Calcium 8.6 mg/dl (8.6-10.3); Carbon Dioxide 25.0 mmol/L (21-32); Chloride 99.0 mmol/L (98-107); Creatinine Clr Calc Pharmacy 55.3 ml/min; Glucose 189.0 mg/dl (70-99(Fasting)); Magnesium 2.4 mg/dl (1.7-2.4); Potassium 4.0 mmol/L (3.5-5.1); Sodium 134.0 mmol/L (136-145)
[2024-12-05 05:48] LABS: ANTI-Xa, UFH(UnfractionatedHep 0.60 IU/ml (0.3-0.7)
--- NOTE | 2024-12-05 10:09 | XRay Report ---
XR chest 1V portable CLINICAL HISTORY: [facility] COMPARISON STUDY: 12/04/2024 FINDINGS: Stable CABG. Stable left chest port. Stable cardiomegaly with pulmonary vascular congestion . Stable diffuse interstitial and patchy pulmonary opacities. No pleural effusion or pneumothorax see n. IMPRESSION: Stable exam. ACT 112: Negative or not required by law. Electronically signed by: Jesu Morley M.D. 12/05/2024 10:07 AM
[2024-12-05] MEDS: FUROSEMIDE 40 MG/4 ML VIAL IV ONE (10:55)
[2024-12-05] MEDS ORDERED: CHLORASEPTIC (PHENOL) 1.4% SOLN 180 ML BTL MT PRN (11:37)
--- NOTE | 2024-12-05 13:10 | Communication Note ---
Date of Service: December 05, 2024 Pt politely declined palliative interaction today. He requests visitors limited due to conversational dyspnea and worsening dyspnea with even minimal exertion. Palliative Care will be available for ongoing GOC discussions and pt support. Please call with any patient needs, questions or concerns. no charges submitted for this date.
[2024-12-05] MEDS: MoRPHine SULFATE 2 MG/ML CARP IV STA (14:54)
[2024-12-05 17:12] LABS: Fungitell (1-3)-B-D-Glucan <31 pg/mL (<60); Fungitell Interpretation Negative
[2024-12-05] MEDS: MoRPHine SULFATE 2 MG/ML CARP IV PRN (18:23)
[2024-12-05] MEDS: SODIUM CHLORIDE 0.65% NA SOLN 45 ML (OCEAN) ONE (18:46)
--- NOTE | 2024-12-05 19:35 | Hospitalist Progress Note ---
Date of Service December 05, 2024 Assessment & Plan (1) Acute hypoxic respiratory failure: (2) Bilateral pulmonary embolism: (3) Atrial fibrillation with rapid ventricular response: (4) Bilateral pulmonary infiltrates: (5) Adenocarcinoma of lung: Plan 79yo male with lung cancer, CAD s/p 2V CABG in March 2024 with porcine mitral valve replacement, COPD, HTN, HLD, hypothyroidism, GERD, presenting with two weeks of progressive SOB and LE edema. Patient hypoxic to 88% on room air on arrival. Not on O2 at home. Patient found with bilateral pulmonary emboli and has since developed profound respiratory failure and multifocal pneumonia vs radiation pneumonitis #Acute hypoxic respiratory failure/PNA - multifactorial - underlying lung cancer, pulmonary emboli, pulmonary edema, possible pneumonia/infectious process, possible radiation pneumonitis, COPD, and rapid Afib all contributing. Viral biofire panel is NEGATIVE on 11/29 but significantly decompensated several days later. Remains on HFNC max settings. Has received IV lasix, is on high dose IV steroids, and empiric antibiotics without improvement. Appreciate PULM consult-too high risk for bronchoscopy now and with low yield. -hold further lasix today given soft BPs and weight loss-seems euvolemic -continue high dose steroids for possible radiation pneumonitis -continue azithromycin and pip-tazo, bactrim added for PJP coverage by pulmonary -continue supplemental O2 and wean as able -continue pulm toilet, nebs-ICS and LABA -f/u PJP sputum, sputum culture, and Legionella Ag when available #Atrial fibrillation with rapid ventricular rate - went into this on AM of 12/04. Has a history of afib post-op from CABG/MVR in 03/2024. Received bolus of IV dilt and soft BPs improved, remains on dilt gtt at 5 mg/hr, BPs remain soft. Recent ECHO with normal EF. Rates remain in 100-110s at rest -continue dilt gtt, titrate up if BP allows -consider increasing Toprol XL dose for improved rate control -consult Cardiology -consider digoxin -monitor on tele -on heparin gtt with plan to convert to Eliquis for PEs -follow BMP, mag and keep lytes replete; check TSH #Bilateral subsegmental pulmonary emboli - in setting of malignancy. -Continue heparin gtt -monitor CBC given thrombocytopenia -Plan to DC on Apixaban #Adenocarcinoma of the lung - IIIb. patient is s/p chemotherapy and XRT. Is planning to start immunotherapy in December. #antineoplastic chemotherapy induced pancytopenia-pancytopenia noted on bloodwork -follow CBC in AM -check B12, folate, iron studies, TSH in AM #CAD - patient s/p CABG x 2V performed in March 2024 as well as mitral valve replacement with porcine valve -Echo 12/02 reassuring -Continue ASA, Atorvastatin, Metoprolol #Hypertension - blood pressure acceptable -Continue Metoprolol #Hyperlipidemia -Continue Atorvastatin #Hypothyroidism -Continue Synthroid -check TSH #Emphysema -Continue nebs #GERD -Continue Protonix DVT ppx - on heparin drip Dispo-continued stay PCU, guarded prognosis Admission and Anticipated Discharge Date Admission Date: November 29, 2024 Subjective Pt on max HFNC, tachypneic at rest. Remains in Afib on tele, rates low 100s-110s at rest. Coughed up a blood-tinged sputum sample today. Pt also c/o severe headache from the HFNC blowing air up his nostrils that spreads from sinuses to back of head-requests morphine which did help somewhat. Discussed care with daughter at bedside. Physical Exam Constitutional: + ill appearing Eyes: + anicteric sclerae Respiratory: + labored breathing and + tachypneic Auscultation: + crackles (bilat lower and middle lung christianson); no rhonchi and no wheezes Cardiovascular: Rate/Rhythm: + tachycardic and + irregularly irregular Heart Sounds: no murmur Extremities: no edema Gastrointestinal (Abdomen): normal bowel sounds, soft, nontender, no hepatosplenomegaly Psychiatric: Orientation: alert, oriented x 3 and cooperative Results & Data Results & Data Vital Signs (Past 12 Hours) Vital Signs Pulse Pulse Pulse Resp BP Pulse Ox O2 Del Method 12/05/24 18:48 High Flow Nasal Cannula 12/05/24 17:57 102 H 35 H 117/57 L 89 L 12/05/24 16:00 102 H 22 111/53 L 96 12/05/24 14:09 94 H 20 99 High Flow Nasal Cannula 12/05/24 14:00 103 H 29 H 100/51 L 97 12/05/24 13:30 94 H 28 H 91 High Flow Nasal Cannula 12/05/24 13:00 95 H 24 111/60 97 12/05/24 12:03 91 H 25 H 108/64 91 12/05/24 11:35 93 H 28 H 90 High Flow Nasal Cannula 12/05/24 11:06 94 H 29 H 119/63 91 12/05/24 10:06 101 H 33 H 115/66 92 12/05/24 09:06 102 H 34 H 119/58 L 91 12/05/24 08:00 107 H 26 H 121/66 89 L 12/05/24 08:00 90 O2 Flow Rate FiO2 12/05/24 18:48 40 80 12/05/24 17:57 12/05/24 16:00 12/05/24 14:09 40 100 12/05/24 14:00 12/05/24 13:30 40 100 12/05/24 13:00 12/05/24 12:03 12/05/24 11:35 40 100 12/05/24 11:06 12/05/24 10:06 12/05/24 09:06 12/05/24 08:00 12/05/24 08:00 100 Laboratory Results CBC, BMP, Mag, sputum Gram stain, [id number] reviewed Diagnostic Findings CXR image personally reviewed by me PG Care Time/CCT Total # of Minutes Spent Total Time Spent with Patient: Total time spent is greater than 50% in coordination of care (as documented) at patient's floor/unit and/or counseling patient: Coding Level of Care Code 55570 SUB INP/OBS CARE 3/50MIN Diagnoses Acute hypoxic respiratory failure J96.01 Bilateral pulmonary embolism I26.99 Atrial fibrillation with rapid ventricular response I48.91 Bilateral pulmonary infiltrates R91.8 Adenocarcinoma of right lung C34.91 Laterality: right (5) Adenocarcinoma of lung Laterality: right Qualified Code(s): C34.91 - Malignant neoplasm of unspecified part of right bronchus or lung
[2024-12-06 02:52] LABS: Influenza A virus by PCR Negative (Neg); Influenza B virus by PCR Negative (Neg); SARS CoV2 RNA(COVID-19) Ceph NEGATIVE (Negative)
[2024-12-06 05:58] LABS: Albumin Level 3.3 gm/dl (3.4-5.0); Anion Gap 9.0 (3-11); Bilirubin,Total 0.7 mg/dl (0.2-1.0); Calcium 8.2 mg/dl (8.6-10.3); Carbon Dioxide 26.0 mmol/L (21-32); Chloride 92.0 mmol/L (98-107); Magnesium 2.3 mg/dl (1.7-2.4); Potassium 3.8 mmol/L (3.5-5.1); Sodium 127.0 mmol/L (136-145)
[2024-12-06 06:04] LABS: Alanine Aminotransferase 43.0 U/L (7-52); Albumin Globulin Ratio 1.3 (0.9-2); Alkaline Phosphatase 153.0 U/L (34-104); Blood Urea Nitrogen 24.0 mg/dl (6-23); Creatinine Clr Calc Pharmacy 47.9 ml/min; Globulin 2.6 gm/dl (2.5-4.0); Glucose 233.0 mg/dl (70-99(Fasting)); Iron 75.0 mcg/dl (35-175); Total Iron Binding Cap Calc 277.0 mcg/dl (250-450); Total Protein 5.9 gm/dl (6.0-8.3); Transferrin 198.0 mg/dl (200-360); Transferrin (FE) Percent Satur 27.0 % (20-50)
[2024-12-06 06:08] LABS: Hematocrit (blood only) 22.4 % (42.0-52.0); Hemoglobin 7.3 g/dl (14.0-18.0); Mean Corpuscular Hemoglobin 28.6 pg (25.0-34.0); Mean Corpuscular Volume 87.8 fL (80.0-100.0); Platelet Count 128 K/uL (130-400); RDW Standard Deviation 58.5 fL (36.4-46.3); Red Blood Count 2.55 M/uL (4.70-6.10); White Blood Count 4.67 K/ul (4.8-10.8)
[2024-12-06 06:09] LABS: ALC (manual) 0.14 K/uL (1.2-3.4); ANC (manual) 4.39 K/uL (1.4-6.5); Polychromasia 1+
[2024-12-06 06:17] LABS: Thyroid Stimulating Hormone 2.077 uIu/ml (0.300-4.500)
[2024-12-06 06:34] LABS: ANTI-Xa, UFH(UnfractionatedHep 0.81 IU/ml (0.3-0.7)
[2024-12-06 07:00] LABS: Ferritin 2070.0 ng/ml (8-388)
[2024-12-06 07:01] LABS: Folate (Folic Acid),Ser orPlas 8.07 ng/ml (>5.38)
[2024-12-06 07:02] LABS: Vitamin B12 893.0 pg/ml (180-914)
--- NOTE | 2024-12-06 08:03 | XRay Report ---
EXAM: XR chest 1V portable CLINICAL HISTORY: F/u PNA TECHNIQUE: An X-ray image of the chest was obtained in the AP portable projection. COMPARISON: Compared to X X-ray study dated 12/04/2024. FINDINGS: Pulmonary Parenchyma: There is diffuse opacification of both lungs, which is increased on the left side. There is no evidence of pleural effusion or pleural thickening. Heart and Mediastinum: The heart size and shape are normal. There is no mediastinal widening or masses. There is no hilar or mediastinal lymphadenopathy. Bony Thorax: Sternotomy sutures are noted. Soft Tissues: The soft tissues overlying the chest wall are unremarkable. IMPRESSION: Compared to the X-ray study dated 12/04/2024, there is a progressive course with regard to: 1. Diffuse opacification of both lungs, which is increased on the left side. 2. Findings suggest acute pulmonary edema versus an acute infectious process. Clinical and lab correlation is advised. Electronically signed by Yari Acevedo 12-06-2024 08:03 AM
--- NOTE | 2024-12-06 08:47 | Hospitalist Progress Note ---
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 Patient hypoxic to 88% on room air on arrival. Not on O2 at home. Patient found with bilateral pulmonary emboli and has since developed profound respiratory failure and multifocal pneumonia vs radiation pneumonitis #Acute hypoxic respiratory failure/PNA - multifactorial - underlying lung cancer, pulmonary emboli, pulmonary edema, pneumonia/infectious process, possible radiation pneumonitis, COPD, and rapid Afib all contributing. Viral biofire panel is NEGATIVE on 11/29 and COVID/flu/RSV negative again on 12/05. He significantly decompensated several days into his admission and is now on HFNC max settings with 15L O2 oxygen mask on top of that with ongoing tachypnea. Has received IV lasix, is on high dose IV steroids, and empiric antibiotics without improvement. Appreciate PULM consult-too high risk for bronchoscopy now and with low yield. Sputum culture now positive for Staphylococcus hemolyticus. Beta D glucan negative making PJP less likely. CRP trending down from 12-3. -Gave IV lasix x 1 -continue high dose steroids for possible radiation pneumonitis -continue azithromycin and pip-tazo for broad-spectrum antibiotics for pneumonia, but will now discontinue bactrim added for PJP coverage -Add IV vancomycin for Staphylococcus hemolyticus -continue supplemental O2 and wean as able -continue pulm toilet, nebs-ICS and LABA -f/u PJP sputum, sputum culture final sensitivities, and Legionella Ag when available - For severe respiratory distress and anxiety, added as needed IV morphine and as needed IV lorazepam - Appreciate palliative medicine consultation-patient reaffirms he does not want intubation or resuscitation - Make n.p.o. for now as high risk for aspiration with respiratory distress #Atrial fibrillation with rapid ventricular rate/nonsustained ventricular tachycardia- went into rapid A-fib on AM of 12/04. Has a history of afib and underwent Maze procedure with his CABG and MVR in 03/2024. Received bolus of IV dilt and soft BPs improved, dilt gtt was continued at 5 mg/hr, BPs remained soft. Recent ECHO with normal EF. Rates remain in 100-110s at rest but then spontaneously converted to normal sinus rhythm and sinus tachycardia on 12/06 with improvement in BPs. TSH normal. Appreciate cardiology consultation -Discontinue dilt gtt -Change p.o. metoprolol to metoprolol 5 mg IV every 6 hours scheduled while NPO -Consider amiodarone -Continue to monitor on tele -continue on heparin gtt with plan to convert to Eliquis for PEs -follow BMP, mag and keep lytes replete-gave IV potassium #Bilateral subsegmental pulmonary emboli - in setting of malignancy. -Continue heparin gtt -monitor CBC given thrombocytopenia -Plan to DC on Apixaban #Hyponatremia-sodium down to 127 from 134. Pulmonology thinks could be due to IV Bactrim causing SIADH. Could also be from previous diuretics although could still be volume overloaded-difficult to tell on chest x-ray #Adenocarcinoma of the lung - IIIb. patient is s/p chemotherapy and XRT. Is planning to start immunotherapy in December. #antineoplastic chemotherapy induced pancytopenia-pancytopenia noted on bloodwork-WBC count and platelets improving, hemoglobin stable at 7.3. B12, fo late, iron studies acceptable-ferritin quite elevated due to profound inflammation. TSH normal -follow CBC in AM - Transfuse as needed if hemoglobin less than 7 #CAD - patient s/p CABG x 2V performed in March 2024 as well as mitral valve replacement with porcine valve and maze procedure -Echo 12/02 reassuring -Continue ASA if can take p.o., Atorvastatin if can take p.o., Metoprolol switch to IV #Hypertension - blood pressure acceptable -Continue Metoprolol but switch to IV as not able to take p.o. #Hyperlipidemia -Continue Atorvastatin if can take p.o. #Hypothyroidism-TSH here normal -Continue Synthroid but switch to IV every 72 hours at half dose of 25 mcg #Emphysema -Continue nebs #GERD -Continue Protonix but switch to IV while n.p.o. DVT ppx -continues on on heparin drip for PEs, follow anti-Xa levels Dispo-continued stay PCU, guarded prognosis, appreciate palliative medicine consultation. Discussed care at length with daughter Admission and Anticipated Discharge Date Admission Date: November 29, 2024 Subjective Was contacted by nursing to see patient urgently first thing this morning as he was maxed out on high flow nasal cannula at 60 L 100% FiO2 as well as having 15 L of oxygen mask over top of this. When I saw the patient, he was awake and alert and talking but extremely dyspneic and tachypneic at rest. He reaffirmed that he did not want to go on a ventilator. He admitted to being anxious and thought that was contributing to his worsening shortness of breath. Nursing reported that with minimal movement, his pulse ox was dropping to the low 80s on maximum amounts of supplemental O2. I discussed his care with pulmonology, cardiology, his daughter, as well as palliative medicine. On telemetry he remained in atrial fibrillation with rates in the low 100s at rest. Later in the day he converted to sinus tachycardia with rates in the 1 teens Physical Exam Constitutional: + acute distress and + ill appearing Eyes: + anicteric sclerae Respiratory: + labored breathing and + tachypneic Auscultation: + crackles (bilat lower and middle lung christianson); no rhonchi and no wheezes Cardiovascular: Rate/Rhythm: + tachycardic and + irregularly irregular Heart Sounds: no murmur Extremities: no edema Gastrointestinal (Abdomen): normal bowel sounds, soft, nontender, no hepatosplenomegaly Psychiatric: Orientation: alert, oriented x 3 and cooperative Results & Data Results & Data Vital Signs (Past 12 Hours) Vital Signs Pulse Pulse Resp BP BP Pulse Ox O2 Del Method 12/06/24 07:38 93 H 32 H 94 High Flow Nasal Cannula 12/06/24 06:00 94 H 19 136/68 86 L 12/06/24 05:12 93 H 32 H 87 L 12/06/24 04:24 91 H 12/06/24 04:09 90 24 135/70 90 High Flow Nasal Cannula 12/06/24 04:03 92 H 16 135/70 94 12/06/24 03:51 93 H 23 90 12/06/24 03:41 94 H 28 H 90 High Flow Nasal Cannula 12/06/24 03:15 90 14 98 12/06/24 03:00 106/65 12/06/24 02:54 90 20 98 12/06/24 02:15 100 H 26 H 80 L 12/06/24 02:01 128/88 12/06/24 01:51 98 H 22 85 L 12/06/24 01:00 93 H 20 107/72 96 12/06/24 00:19 96 H 16 125/64 97 High Flow Nasal Cannula 12/06/24 00:03 97 H 18 125/64 96 12/05/24 23:39 91 H 16 97 12/05/24 23:00 91 H 18 102/60 95 12/05/24 22:10 102 H 24 92 High Flow Nasal Cannula 12/05/24 22:03 97 H 29 H 91 12/05/24 22:01 113/61 12/05/24 21:57 100 H 21 92 12/05/24 21:03 98 H 22 116/74 91 12/05/24 20:57 98 H 27 H 88 L O2 Flow Rate FiO2 12/06/24 07:38 60 100 12/06/24 06:00 12/06/24 05:12 12/06/24 04:24 12/06/24 04:09 60 100 12/06/24 04:03 12/06/24 03:51 12/06/24 03:41 60 100 12/06/24 03:15 12/06/24 03:00 12/06/24 02:54 12/06/24 02:15 12/06/24 02:01 12/06/24 01:51 12/06/24 01:00 12/06/24 00:19 60 100 12/06/24 00:03 12/05/24 23:39 12/05/24 23:00 12/05/24 22:10 60 100 12/05/24 22:03 12/05/24 22:01 12/05/24 21:57 12/05/24 21:03 12/05/24 20:57 Laboratory Results CBC, BMP, iron studies, B12, folate, COVID/flu/RSV, LFTs, sputum culture, procalcitonin, CRP, anti-Xa level, TSH all reviewed Diagnostic Findings CXR reviewed PG Care Time/CCT Total # of Minutes Spent Total Time Spent with Patient: Total time spent is greater than 50% in coordination of care (as documented) at patient's floor/unit and/or counseling patient: Coding Level of Care Code 61462 SUB INP/OBS CARE 3/50MIN Diagnoses Acute hypoxic respiratory failure J96.01 Bilateral pulmonary embolism I26.99 Atrial fibrillation with rapid ventricular response I48.91 Bilateral pulmonary infiltrates R91.8 Adenocarcinoma of right lung C34.91 Laterality: right (5) Adenocarcinoma of lung Laterality: right Qualified Code(s): C34.91 - Malignant neoplasm of unspecified part of right bronchus or lung
[2024-12-06] MEDS ORDERED: MoRPHine SULFATE 2 MG/ML CARP IV STA (09:19)
[2024-12-06] MEDS: MoRPHine SULFATE 2 MG/ML CARP IV STA (09:32)
--- NOTE | 2024-12-06 09:48 | Palliative Care Progress Note ---
Date of Service December 06, 2024 Assessment & Plan (1) Dyspnea on minimal exertion: Plan: Pt continues to have worsening respiratory failure with increasing oxygen demand and dyspnea at rest overnight. Currently on 60L HFNC plus NRB with pOx in low 90s. Attending team considering prone positioning. Continue steroids, Abx and HFNC. Discussed comfort directed care with pt briefly, he is not ready to transition to comfort at this time. (2) Palliative care by specialist: Plan: Palliative care will continue to follow for ongoing GOC discussions and pt / family support. (3) Counseling regarding goals of care: Plan: TODAY 12/06: Met with Benigno at bedside, no visitors present. Briefly reinforced his previously expressed GOC. Benigno confirms DNR/DNI, but stated that he would like ALL other aggressive measures to continue. We discussed that he is on the maximal supplemental oxygen that we can offer and he remains dyspneic with significantly increased WOB at rest. He has discussed prone positioning with Dr Lake and is agreeable to this if it will offer benefit. Pulmonology team to discuss further with pt. Shared concern that despite aggressive interventions he is getting sicker and likely to not survive this hospitalization and he is suffering unnecessarily. I encouraged pt to consider PRN ativan for anxiety and/or morphine for dyspnea. Benigno acknowledged feeling sicker and that he will consider medications, but does not want anything that will make him drowsy at this time. Discussion with pt was kept brief due to conversational dyspnea / respiratory distress. was called by [facility] and will not be able to come to hospital at this time, but daughter is on her way. 12/04: Met with pt at bedside, no visitors present. Discussed GOC from 12:00 - 12:30. Pt shared that he is feeling very dyspneic with even minimal exertion, he stated that he is trying to minimize his conversations to preserve his energy. He shared that he believes his oxygen demand increased because he was not on humidified oxygen overnight. He shared that he developed a dry cough which persisted through the night and drove his heart rate up and pOx down. He shared concern that he is not getting better and verbalized that he does "not feel too miserable right now". He shared that he would like to continue to optimize his health, but also shared concern that "things are not heading in a good direction". Patient reinforced his wish to not be intubated and stated "if things get much worse, I would have other thoughts" about continuing aggressive care. He expressed hope that he will stabilize and be able to be weaned off the high level of oxygen. He remains hopeful for improvement with steroids and abx to allow him to return to independent living at home. Later in afternoon, along with [facility], met with pt and his at bedside. stated that she was upset to learn this morning while talking to patient on phone that he had decompensated over night and was transferred to PCU. She was frustrated to not have gotten a call from nursing staff overnight when he was transferred. Franky gave medical updates and explained to that pt is critically ill, but has stabilized. Discussed pt's rapid heart rate and increased oxygen demand requiring transfer to higher level of care. She shared that she is hopeful that he will continue to improve and glad that he is stable. Reinforced with the pt and his that he remains critically ill with very high oxygen demand. Plan as above Admission and Anticipated Discharge Date Admission Date: November 29, 2024 Subjective Assessed pt at bedside. He has had increased oxygen demand overnight, currently on 60L HFNC with face mask as well. He is in obvious resp distress with tachypnea and accessory muscle use, pOx in low 90s. Pt denies pain but asserts feeling anxious and SOB. Encouraged pt accept PRN morphine and/or ativan for conmfort, he states he will consider it. Review of Systems Review of Systems: All systems reviewed & are unremarkable except as noted in Subjective Physical Exam Constitutional: WD/WN, vitals as above Eyes: PERRL, conjunctivae normal, anicteric sclerae Neck: trachea midline, no thyromegaly Respiratory: + respiratory distress, + labored breath ing, + uses accessory muscles, + cough, + tachypneic and + prolonged expiratory phase; + not able to speak in complete sentence Auscultation: + diminished lung sounds and + crackles pt dyspneic at rest Cardiovascular: Rate/Rhythm: + irregularly irregular rapid AF with occasional runs of VT Gastrointestinal (Abdomen): normal bowel sounds, soft, nontender, no hepatosplenomegaly Musculoskeletal: generalized weakness Skin: no rashes, warm and dry Neurologic: PERRL, EOMI, accommodation nl, no face palsy, no dysarthria Psychiatric: A+Ox3, euthymic affect Genitourinary: voiding dark pietro urine without difficulty. Results & Data Vital Signs (Past 12 Hours) Vital Signs Pulse Pulse Resp BP BP Pulse Ox O2 Del Method 12/06/24 07:38 93 H 32 H 94 High Flow Nasal Cannula 12/06/24 06:00 94 H 19 136/68 86 L 12/06/24 05:12 93 H 32 H 87 L 12/06/24 04:24 91 H 12/06/24 04:09 90 24 135/70 90 High Flow Nasal Cannula 12/06/24 04:03 92 H 16 135/70 94 12/06/24 03:51 93 H 23 90 12/06/24 03:41 94 H 28 H 90 High Flow Nasal Cannula 12/06/24 03:15 90 14 98 12/06/24 03:00 106/65 12/06/24 02:54 90 20 98 12/06/24 02:15 100 H 26 H 80 L 12/06/24 02:01 128/88 12/06/24 01:51 98 H 22 85 L 12/06/24 01:00 93 H 20 107/72 96 12/06/24 00:19 96 H 16 125/64 97 High Flow Nasal Cannula 12/06/24 00:03 97 H 18 125/64 96 12/05/24 23:39 91 H 16 97 12/05/24 23:00 91 H 18 102/60 95 12/05/24 22:10 102 H 24 92 High Flow Nasal Cannula 12/05/24 22:03 97 H 29 H 91 12/05/24 22:01 113/61 12/05/24 21:57 100 H 21 92 O2 Flow Rate FiO2 12/06/24 07:38 60 100 12/06/24 06:00 12/06/24 05:12 12/06/24 04:24 12/06/24 04:09 60 100 12/06/24 04:03 12/06/24 03:51 12/06/24 03:41 60 100 12/06/24 03:15 12/06/24 03:00 12/06/24 02:54 12/06/24 02:15 12/06/24 02:01 12/06/24 01:51 12/06/24 01:00 12/06/24 00:19 60 100 12/06/24 00:03 12/05/24 23:39 12/05/24 23:00 12/05/24 22:10 60 100 12/05/24 22:03 12/05/24 22:01 12/05/24 21:57 Laboratory Results Abnormal lab results 12/06/24 Range/Units 04:41 WBC 4.67 L (4.8-10.8) K/ul RBC 2.55 L (4.70-6.10) M/uL Hgb 7.3 L (14.0-18.0) g/dl Hct 22.4 L (42.0-52.0) % RDW Std Deviation 58.5 H (36.4-46.3) fL RDW Coeff of Joesph 18.6 H (11.5-14.5) % Plt Count 128 L (130-400) K/uL Lymphocytes # (Manual) 0.14 L (1.2-3.4) K/uL Total Abs Lymphocytes 0.14 L (1.2-3.4) K/uL Heparin Anti-Xa, Unfract 0.81 H* (0.3-0.7) IU/ml Sodium 127 L (136-145) mmol/L Chloride 92 L (98-107) mmol/L BUN 24 H (6-23) mg/dl BUN/Creatinine Ratio 21.2 H (10-20) Glucose 233 H (70-99(Fasting)) mg/dl Calcium 8.2 L (8.6-10.3) mg/dl Transferrin 198 L (200-360) mg/dl Ferritin 2070.0 H (8-388) ng/ml AST 54 H (13-39) U/L Alkaline Phosphatase 153 H (34-104) U/L C-Reactive Protein 3.76 H (0-0.5) mg/dl Total Protein 5.9 L (6.0-8.3) gm/dl Albumin 3.3 L (3.4-5.0) gm/dl Diagnostic Findings Chest CTA 11/29/24 17:04 Clinical history: Dyspnea Technique: Axial computed tomography images were obtained of the chest after the administration of intravenous contrast according to the CT angiogram protocol Comparison is made to the prior CT dated 09/23/2024 Findings: There is subsegmental peripheral pulmonary embolism in the lower lobes bilaterally. There is emphysema. There are slightly worsened multifocal groundglass infiltrates throughout both lungs. There is a calcified granuloma in the right lower lobe. There has been interval increase in size of multifocal nodular opacities in the right lower lobe, the largest measuring 2.8 cm and abutting the pleural surface.. There is a small right pleural effusion. There is no left pleural effusion or pneumothorax. There are multiple small and mildly enlarged mediastinal and bilateral hilar lymph nodes. The thoracic aorta appears unremarkable with no sign of aneurysm or dissection. There is no pericardial effusion. There is coronary atherosclerosis There is a small gallstone. There is a small hiatal hernia. No fracture is seen. No focal osseous lesion is evident Impression: 1. Bilateral lower lobe pulmonary embolism 2. Interval increase in size of multifocal nodular opacities in the right lower lobe. This could be inflammatory, though bronchogenic carcinoma is also possible. Close interval follow-up CT could be obtained or PET scan could be considered 3. Interval worsening of multifocal groundglass infiltrates, which may be due to viral pneumonitis 4. Emphysema 5. Mild mediastinal and bilateral hilar adenopathy 6. Small right pleural effusion 7. Small hiatal hernia 8. Cholelithiasis ACT 112: Positive. There are findings on this exam that require communication between the performing entity and the patient following Patient Test Result Information Act ([place] ACT 112) guidelines. Electronically signed by Juan Manuel Mackey 11-29-2024 7:03 PM Chest X-Ray 12/06/24 07:00 EXAM: XR chest 1V portable CLINICAL HISTORY: F/u PNA TECHNIQUE: An X-ray image of the chest was obtained in the AP portable projection. COMPARISON: Compared to X X-ray study dated 12/04/2024. FINDINGS: Pulmonary Parenchyma: There is diffuse opacification of both lungs, which is increased on the left side. There is no evidence of pleural effusion or pleural thickening. Heart and Mediastinum: The heart size and shape are normal. There is no mediastinal widening or masses. There is no hilar or mediastinal lymphadenopathy. Bony Thorax: Sternotomy sutures are noted. Soft Tissues: The soft tissues overlying the chest wall are unremarkable. IMPRESSION: Compared to the X-ray study dated 12/04/2024, there is a progressive course with regard to: 1. Diffuse opacification of both lungs, which is increased on the left side. 2. Findings suggest acute pulmonary edema versus an acute infectious process. Clinical and lab correlation is advised. Electronically signed by Yair Acevedo 12-06-2024 08:03 AM Medications Administered Current Inpatient Medications Acetaminophen (Acetaminophen 325 Mg Tab) 650 mg PO Q4H PRN PRN Reason: Pain or Fever Stop: 12/29/24 23:33 Last Admin: 12/05/24 09:55 Dose: 650 mg Al Hydrox/Mg Hydrox/Simethicone (Aluminum/Magnesium Susp 30 Ml Udc) 15 ml PO Q6H PRN PRN Reason: Heartburn Stop: 12/30/24 05:33 Last Admin: 11/30/24 05:47 Dose: 15 ml Albuterol (Albut/Ipratrop 3mg/0.5mg Neb 3 Ml Vial) 3 ml NEB Q6R PRN; Protocol PRN Reason: Shortness Of Breath Or Wheezing Stop: 12/30/24 01:27 Last Admin: 12/05/24 13:25 Dose: 3 ml Aspirin (Aspirin 81 Mg Ectab) 81 mg PO QAM RITO Stop: 12/30/24 08:59 Last Admin: 12/05/24 08:24 Dose: 81 mg Atorvastatin Calcium (Atorvastatin 40 Mg Tab) 40 mg PO HS [facility] Stop: 12/29/24 23:33 Last Admin: 12/05/24 20:05 Dose: 40 mg Azithromycin (Azithromycin 250 Mg Tab) 250 mg PO QAM RITO Stop: 12/08/24 08:59 Last Admin: 12/05/24 08:24 Dose: 250 mg Budesonide (Budesonide 0.5 Mg/2 Ml Vial (Pulmicort)) 0.5 mg NEB BIDR RITO Stop: 01/02/25 18:59 Last Admin: 12/06/24 07:37 Dose: 0.5 mg Calcium Polycarbophil (Calcium Polycarbophil 625mg Tab) 625 mg PO BID RITO Stop: 12/29/24 23:33 Last Admin: 12/05/24 20:05 Dose: 625 mg Docusate Sodium (Docusate Sodium 100 Mg Cap) 100 mg PO BID PRN PRN Reason: Constipation Stop: 12/29/24 23:33 Formoterol Fumarate (Formoterol 20 Mcg/2 Ml Vial) 20 mcg NEB BIDR RITO Stop: 01/02/25 18:59 Last Admin: 12/06/24 07:37 Dose: 20 mcg Heparin Sodium/Dextrose (Heparin 89490 Unit/500 Ml D5w) 25,000 units in 500 mls @ 0 mls/hr IV .Q0M [facility]; Protocol Stop: 12/29/24 19:44 Last Titration: 12/06/24 07:36 Dose: 1,250 units/hr, 25 mls/hr Piperacillin Sod/Tazobactam Sod (Zosyn) 4.5 gm in 100 mls @ 25 mls/hr IV Q8H [facility]; Protocol Stop: 12/10/24 19:29 Last Infusion: 12/06/24 09:24 Dose: Infused Diltiazem HCl 125 mg/ Dextrose 125 mls @ 5 mls/hr IV .Q24H [facility]; Protocol Stop: 01/03/25 10:29 Last Titration: 12/06/24 09:24 Dose: Infused Trimethoprim/Sulfamethoxazole (320 mg/ Dextrose) 520 mls @ 349.375 mls/hr IV Q8H [facility] Stop: 01/03/25 18:59 Last Infusion: 12/06/24 05:48 Dose: Infused Methylprednisolone 125 mg/ (Syringe) 2 mls @ 0.667 mls/min IV Q6H [facility] Stop: 01/03/25 14:59 Last Admin: 12/06/24 07:48 Dose: 0.667 mls/min Latanoprost (Latanoprost 0.005% Op Soln 2.5 Ml Btl) 1 drops OPR HS [facility] Stop: 12/29/24 23:33 Last Admin: 12/05/24 20:06 Dose: 1 drops Levothyroxine Sodium (Levothyroxine Sodium 50 Mcg Tablet) 50 mcg PO DAILYBB [facility] Stop: 12/30/24 06:29 Last Admin: 12/06/24 05:55 Dose: 50 mcg Lorazepam (Lorazepam 2 Mg/1 Ml Vial) 0.5 mg IV Q8H PRN PRN Reason: Anxiety/Agitation Stop: 01/05/25 08:37 Melatonin (Melatonin 3 Mg Tab) 3 mg PO HS PRN PRN Reason: Insomnia Stop: 12/29/24 23:33 Last Admin: 12/05/24 22:02 Dose: 3 mg Menthol (Cough Drop (Sugar Free) Candida 24 Candida/1 Box) 1 candida BUCCAL Q2H PRN PRN Reason: Sore Throat Stop: 01/01/25 00:15 Last Admin: 12/02/24 00:32 Dose: 1 candida Metoprolol Succinate (Metoprolol Succ 25mg Ext Rel Tab) 25 mg PO QAM [facility] Stop: 12/30/24 08:59 Last Admin: 12/05/24 08:24 Dose: 25 mg Morphine Sulfate (Morphine Sulfate 2 Mg/Ml Carp) 1 mg IV Q4H PRN PRN Reason: Mod-Sev Pain (Scale 4-10) Stop: 12/19/24 18:11 Last Admin: 12/05/24 18:23 Dose: 1 mg Ondansetron HCl (Ondansetron Inj 2 Mg/Ml 2 Ml Vial) 4 mg IV Q6H PRN PRN Reason: Nausea And Vomiting Stop: 12/29/24 23:33 Pantoprazole Sodium (Pantoprazole 40 Mg Tab) 40 mg PO DAILY [facility] Stop: 12/30/24 08:59 Last Admin: 12/05/24 08:24 Dose: 40 mg Phenol (Chloraseptic (Phenol) 1.4% Soln 180 Ml Btl) 1 sprays MT Q2H PRN PRN Reason: Sore Throat Stop: 01/04/25 11:36 Tamsulosin HCl (Tamsulosin Hcl 0.4 Mg Cap) 0.8 mg PO QPM [facility] Stop: 12/29/24 23:33 Last Admin: 12/05/24 20:06 Dose: 0.8 mg PG Care Time/CCT Total # of Minutes Spent Total Time Spent with Patient: Total time spent is greater than 50% in coordination of care (as documented) at patient's floor/unit and/or counseling patient: C[place] [address] SUB INP/OBS CARE 3/50MIN Patient Type Established History Expanded Problem Focused Exam Expanded Problem Focused Medical Decision Making Moderate Complexity Diagnoses Dyspnea on minimal exertion R06.09 Palliative care by specialist Z51.5 Counseling regarding goals of care Z71.89
--- NOTE | 2024-12-06 10:20 | Pulmonology Progress Note ---
Date of Service December 06, 2024 Assessment & Plan (1) Acute hypoxic respiratory failure: (2) Pulmonary hypertension: (3) Lung mass: (4) Adenocarcinoma of lung: Laterality: right Qualified Code(s): C34.91 - Malignant neoplasm of unspecified part of right bronchus or lung (5) Bilateral pulmonary embolism: (6) Hx of emphysema: (7) Atrial fibrillation with rapid ventricular response: (8) V tach: Plan Benigno Shay is an 79-year-old male with past medical history of right lung adenocarcinoma, CAD, pulmonary HTN, emphysema, hypothyroidism, GERD, HTN, esophageal varices, TMJ, and vitamin D deficiency. Patient followed by Dr. Mcbride from pulmonary. Patient initially presented [facility]24 with shortness of breath and lower extremity edema. Patient found to have bilateral lower lobe subsegmental pulmonary emboli and increased ground glass opacities in bilateral lung [place]. 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 Atypical infection such as PJP difficult to rule out. Bactrim initiated today. Currently on methylprednisolone 125 every 6h. Beta glucan negative making invasive PJP less likely. Will discontinue Bactrim as this is also likely contributing to hyponatremia. Legionella urine antigen and PJP PCR from sputum is pending. Patient too unstable to tolerate bronchoscopy and unlikely to change prognosis anyway. 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 Otherwise, continue heparin infusion for pulmonary emboli and continue Zosyn/azithromycin for possible infective organisms causing pneumonia. Prognosis is quite poor overall given underlying metastatic malignancy and intolerance to antineoplastic agents. Discussed with patient today and daughter at length. Will give 2 mg IV morphine today to help with dyspnea. Condition overall likely unable to be reversed. Transitioning to comfort measures and hospice level care would be appropriate at this time on this was discussed with the patient and daughter. Discussed with bedside nursing and the hospital service as well. Patient still considering his options. He does remain a DNR/DNI. This morning he has had short runs of ventricular tachycardia likely related to profound hypoxemia. Recommend maintaining potassium above 4 and magnesium above 2. Patient currently on metoprolol and heparin drip. Admission and Anticipated Discharge Date Admission Date: November 29, 2024 Subjective Patient with worsening clinical status requiring higher amounts of oxygen despite 100% FiO2 with 60 L of oxygen he remains with oxygen saturations in the high 80s and low 90s. He has no appetite at this time and is dyspneic with minimal movement and conversation. He does endorse anxiety and tremulousness. Review of Systems Review of Systems: All systems reviewed & are unremarkable except as noted in HPI & below Physical Exam Physical Exam: VITALS: Reviewed. WEIGHT/BMI reviewed. GEN: Chronically ill, states age appearing, well-developed, NAD. PSYCH: Good Judgment. AOx3. Normal memory, mood, and affect. HEENT -Head: NC/AT; -Eyes: PERRL, EOMI. No discharge or redn ess; -Ears: External ears are normal. -Nose: Normal nares. NECK: Supple, with no masses. CV: RRR, no m/r/g. LUNGS: Mildly increased work of breathing. Mild crackles. ABD: Soft, NT/ND, NBS, no masses or organomegaly. : N/A SKIN: Warm, well perfused. No skin rashes or abnormal lesions. MSK: No deformities, Normal gait. EXT: No clubbing, cyanosis, or edema. NEURO: Normal muscle strength and tone. No focal deficits. Results & Data Results & Data Vital Signs (Past 12 Hours) Vital Signs Pulse Pulse Resp BP BP Pulse Ox O2 Del Method 12/06/24 09:03 101 H 28 H 118/70 88 L High Flow Nasal Cannula 12/06/24 09:00 High Flow Nasal Cannula 12/06/24 08:03 96 H 24 118/70 94 12/06/24 07:38 93 H 32 H 94 High Flow Nasal Cannula 12/06/24 07:00 98 H 23 122/71 87 L 12/06/24 06:00 94 H 19 136/68 86 L 12/06/24 05:12 93 H 32 H 87 L 12/06/24 04:24 91 H 12/06/24 04:09 90 24 135/70 90 High Flow Nasal Cannula 12/06/24 04:03 92 H 16 135/70 94 12/06/24 03:51 93 H 23 90 12/06/24 03:41 94 H 28 H 90 High Flow Nasal Cannula 12/06/24 03:15 90 14 98 12/06/24 03:00 106/65 12/06/24 02:54 90 20 98 12/06/24 02:15 100 H 26 H 80 L 12/06/24 02:01 128/88 12/06/24 01:51 98 H 22 85 L 12/06/24 01:00 93 H 20 107/72 96 12/06/24 00:19 96 H 16 125/64 97 High Flow Nasal Cannula 12/06/24 00:03 97 H 18 125/64 96 12/05/24 23:39 91 H 16 97 12/05/24 23:00 91 H 18 102/60 95 O2 Flow Rate FiO2 12/06/24 09:03 60 100 12/06/24 09:00 60 100 12/06/24 08:03 12/06/24 07:38 60 100 12/06/24 07:00 12/06/24 06:00 12/06/24 05:12 12/06/24 04:24 12/06/24 04:09 60 100 12/06/24 04:03 12/06/24 03:51 12/06/24 03:41 60 100 12/06/24 03:15 12/06/24 03:00 12/06/24 02:54 12/06/24 02:15 12/06/24 02:01 12/06/24 01:51 12/06/24 01:00 12/06/24 00:19 60 100 12/06/24 00:03 12/05/24 23:39 12/05/24 23:00 PG Care Time/CCT Total # of Minutes Spent Total Time Spent with Patient: Total time spent is greater than 50% in coordination of care (as documented) at patient's floor/unit and/or counseling patient: Coding Level of Care Code 33431 SUB INP/OBS CARE 2/35MIN Diagnoses Acute hypoxic respiratory failure J96.01 Pulmonary hypertension I27.20 Lung mass R91.8 Adenocarcinoma of right lung C34.91 Laterality: right Bilateral pulmonary embolism I26.99 Hx of emphysema J43.9 Atrial fibrillation with rapid ventricular response I48.91 V tach I47.20
[2024-12-06] MEDS ORDERED: VANCOMYCIN CONSULT ACTIVE PRN ×2 (11:12→11:35)
[2024-12-06] MEDS ORDERED: VANCOMYCIN HCL 1,500 MG in SODIUM CHLORIDE 0.9% 500 ML IV ONE (11:12)
--- NOTE | 2024-12-06 12:12 | Cardiology Consultation ---
Date of Consultation December 06, 2024 Assessment & Plan (1) Paroxysmal atrial fibrillation: (2) V tach: (3) Bilateral pulmonary embolism: (4) CAD (coronary artery disease): (5) Hx of CABG: (6) History of mitral valve replacement: (7) Acute hypoxic respiratory failure: Plan ASSESSMENT/PLAN: 1. Atrial fibrillation with rapid ventricular response: Known history of paroxysmal A-fib s/p MAZE March 2024. Rhythm appears sinus on telemetry currently. He has not tolerated amiodarone in the past due to change in his taste and when Amio was mentioned this morning, he declines the medication. Anticoagulation therapy has not been used in the outpatient setting due to r ecurrent GI bleed with significant anemia requiring blood transfusion. He has since undergone excision and oversewing of left atrial appendage. Now on anticoagulation therapy due to pulmonary emboli. Can discontinue diltiazem drip at this time as he has converted. 2. Ventricular tachycardia: Paroxysmal and nonsustained. We discussed potentially adding amiodarone to help suppress this arrhythmia as well as A-fib as above. He declines but would be willing to use IV amiodarone if significant VT issues going forward. He expressed understanding that if he should have sustained VT in his current setting, he would likely pass. 3. CAD s/p CABG x 2: No angina. On high intensity statin therapy but if he prefers palliative approach in the future, would discontinue statin. Mildly elevated high-sensitivity troponin likely due to PE and demand ischemia in the setting of respiratory failure. 4. Severe mitral regurgitation s/p bioprosthetic MVR: Appropriately functioning bioprosthetic mitral valve on November 2024 echo. SBE prophylaxis for dental procedures. 5. Pulmonary emboli: As per pulmonology and primary hospitalist service. 6. Acute hypoxic respiratory failure: He does not appear to be hypervolemic. 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 Also has multiple pulmonary emboli. Defer to pulmonology. 7. Lung Cancer: Per pulmonology and hospitalist service. 8. Disposition: Very ill and poor prognosis. Palliative care is following. Patient care discussed with Dr. Ivory of pulmonology, Dr. Lake of the primary hospitalist service, and Gifty Spivey of palliative care. I will be away from the hospital after 5 PM today. Please call on-call hand etcher with any other concerns or questions. Highly complex medical issues. Thank you for allowing me to participate in the care of your patient. Please call for any other questions or concerns. Sincerely, Christiano Hamilton M.D. History of Present Illness Reason for Consultation: "Rapid A-fib, respiratory failure" Requesting Physician: Mary Lou Lake MD Attending Physician: Mary Lou Lake MD History of Present Illness Mr. 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 In November 2023, dyspnea on exertion was noted. Workup through PCP office demonstrated hemoglobin as low as 6.9, requiring transfusion. 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 Bleeding AVM underwent cauterization and clipping. Ongoing bright red blood per rectum in February prompted hemorrhoid treatment. Stress echo was ordered by PCP due to ongoing dyspnea. When he arrived for stress test, he was noted to be in A-fib with RVR up to 142 bpm. Beta-uriel was initiated. Echo demonstrated severe mitral regurgitation and severe pulmonary hypertension. He underwent transesophageal echo and cardiac catheterization before being referred to CT surgery. He underwent bioprosthetic MVR and CABG x 2 with Maze procedure and left atrial appendage [place] [facility] [place] He has had the following studies/procedures: 1. Echo 03/07/24 [facility] [place]: Normal LV size, wall motion, and systolic function. EF 55-60%. Mild LVH. Severe left atrial dilation. Severe MR with pulmonary venous systolic flow reversal. Mild to moderate TR. Severe pulmonary hypertension; RVSP 73. Atrial fibrillation. 2. LEANNE 03/11/24 [facility]: Normal LV size, wall motion, and systolic function. EF 55- 60%. Severe left atrial dilation. Mitral valve prolapse of posterior leaflet (P2) with severe, multi jet MR. Moderate pulmonary hypertension. RVSP 50. 3. Cardiac catheterization 03/11/24 [facility]: Ostial left main 50%. Mid LAD 30%. 4. Mitral valve replacement with bioprosthesis of [facility] medical epic valve size 29 mm, CABG x 2 (TERESA-LAD and SVG-OM1), excision and oversewing of left atrial appendage, left and right atrial maze with radiofrequency and cryo probes 04/09/24 [place] [facility] [place] M[place] 5. Echo 06/18/2024 [facility]: Normal LV size. EF 50-55%. No regional wall motion abnormalities. Septal motion consistent with cardiac surgery. Mild LVH. Mild left atrial dilation. Mild AI. Bioprosthetic MVR with mean gradient 5.8 at heart rate 96. RVSP ~40. Sinus. He was admitted on 11/29/2024 for worsening shortness of breath and hypoxia. He states that he had been experiencing shortness of breath for some time leading up to his hospitalization and noted that his oxygen saturation at home on room air was in the mid 90s and then drifted down into the 80s, prompting evaluation. Here, he was diagnosed with pulmonary emboli and acute hypoxic respiratory failure. He has been followed by pulmonology and also palliative care. He is being treated for possible chemo or radiation pneumonitis as well as possible infection. Despite treatment, upon discussion with pulmonology and hospitalist service, his respiratory status has continued to worsen. He admits that he continues to feel short of breath despite high flow nasal cannula. He denies chest pain, syncope, near syncope, palpitations. He states that his edema has improved since presentation. He denies fever, nausea, vomiting, or diarrhea. He denies melena, hematochezia, or hematuria. During today's visit, he developed nonsustained ventricular tachycardia of 12 beats and remained completely asymptomatic throughout the episode. He had noted to develop atrial fibrillation with RVR on 12/04/2024 and was placed on a diltiazem drip by his other providers. Review of systems: As above. Family history: No known premature CAD. Social history: Quit smoking at approximately 38 years of age. Denies alcohol or drug abuse. Has been twice, 2 children with each . Retired from [employer] where he worked with [employer]. He was unaccompanied. Allergies Allergy/AdvReac Type Severity Reaction Status Date / Time atenolol AdvReac Mild Diarrhea Verified 11/11/24 09:29 Home Medications Medication Instructions Recorded Confirmed Type calcium polycarbophil 625 mg 625 mg PO BID 11/13/19 11/29/24 History tablet (Fiber-Tabs) ferrous sulfate 325 mg (65 mg 325 mg PO QPM 11/13/19 11/29/24 History iron) tablet (iron) multivitamin 1 tab PO QAM 03/31/22 11/29/24 History latanoprost 0.005 % eye drops 1 drp OPR HS 01/11/24 11/29/24 History atorvastatin 40 mg tablet 40 mg PO HS #90 tabs 03/11/24 11/29/24 Rx esomeprazole magnesium 20 mg 20 mg PO QPM #90 caps 05/14/24 11/29/24 Rx capsule,delayed release (Nexium 24HR) amoxicillin 500 mg capsule 2,000 mg (4 x 500 mg) PO .COMPLEX 05/15/24 11/29/24 Rx #4 caps tamsulosin 0.4 mg capsule 0.8 mg (2 x 0.4 mg) PO QPM 07/01/24 11/29/24 Rx frequency #180 caps aspirin 81 mg tablet,delayed 81 mg PO QAM 08/02/24 11/29/24 History release tiotropium bromide 2.5 2 puff inhalation DAILY #4 grams 10/01/24 11/29/24 Rx mcg/actuation mist for inhalation (Spiriva Respimat) mirabegron 50 mg tablet,extended 50 mg PO QPM #90 tabs 10/25/24 11/29/24 Rx release 24 hr (Myrbetriq) metoprolol succinate 25 mg 25 mg PO QAM #90 tabs 11/07/24 11/29/24 Rx tablet,extended release 24 hr levothyroxine 50 mcg tablet 50 mcg PO QAM #90 tabs 11/19/24 11/29/24 Rx Patient History Medical History Adenocarcinoma of lung dx 07/2024 Mitral valve disease CABG x2 + MVR (04/09/24), [facility] CAD (coronary artery disease) CABG x2 + MVR (04/09/24), [facility] Hx of esophageal varices Hx of pulmonary hypertension History of hypothyroidism Hx of hyperlipidemia History of hypertension History of prostate cancer Dx 2021 S/P brachytherapy, XRT Hx of gastroesophageal reflux (GERD) Hx of emphysema Lung mass Noted on CTS "Reason for upcoming bronchoscopy" Rectal bleeding hx, no current issues Cervical arthritis limited ROM per patient History of iron deficiency anemia hx of transfusions within the year (03/2024) Premature ventricular contractions Follows with [facility] cardio Raynaud's disease TMJ (temporomandibular joint disorder) No issues since surgical intervention Surgical History Port-A-Cath in place (09/26/24) Insertion of Magnetic Resonance Imaging Compatible Access Port- Left Subclavian Vein(Left) - Sampson Durham MD, FACS MRI clip placed in left subclavian performed utilizing fluoroscopy throughout the procedure Dr. Durham History of bronchoscopy 07/2024, robotic navigational bronchoscopy with endobronchial US, [facility] History of mitral valve replacement CABG x2 + MVR (04/09/24), [facility] [place]x of brachytherapy 07/14/22 [facility] Hx of cardiac cath 03/11/24, [facility], no stents Hx of CABG CABG x2 + MVR (04/09/24), [facility] History of esophagogastroduodenoscopy (EGD) History of cataract surgery R/L History of colonoscopy History of surgery for TMJ H/O hernia repair Family History Uncle Ruptured thoracic aortic aneurysm Other Hypertension No family history of adverse response to anesthesia Denies family history of Ovarian cancer Prostate cancer Myocardial infarction Breast cancer Colorectal cancer Social History Smoking Status: Former smoker Tobacco Type: Cigarettes Age Started Using Tobacco: 14; Age Quit Using Tobacco: 38; packs per day: 0; Second Hand Exposure: No; Do You Dip or Chew Tobacco: No; Tobacco Cessation Education Requested by Patient: No Hx Alcohol Use: No Hx Substance Use: No Preferred Language: Honduran Communication Ability: Effective Visual Impairment: Limited Hearing Ability: Use of Hearing Aid Top Stop Attacher Required: No Beliefs That Will Affect Care: None marital status: Current Living Situation: Spouse Current Living Situation Comment: current occupational status: retired current occupation: Retired How many Children do You have: 4 Other Information That Helps Us Care for You: No Feels Safe at Home: Yes Safety Concerns: Feels Safe At This Time Childhood Exposure to Second-Hand Smoke: Yes Diet: regular caffeine: Yes during the past year weight has: remained stable Dental Care, Regularly: Yes Physical Activity Frequency: Daily Seatbelt Use: always Sunscreen Use: Yes Do you think of yourself as: straight/heterosexual Sexual Activity: has been sexually active, but not for at least 12 months Gender Identity: Male Assistive Devices: None Physical Exam Physical Exam: Gen.: Mildly tachypneic. Alert and oriented. HEENT: Anicteric sclera. Neck: No JVD. No hepatojugular reflux noted. Cardiac: Regular. Normal S1-S2. No murmurs, rubs, or gallops. Pulmonary: Decreased breath sounds throughout and otherwise coarse breath sounds bilaterally. Abdomen: Soft, nontender, nondistended, with hypoactive bowel sounds. No bruits noted. Extremities: 2+ radial pulses bilaterally. 2+ posterior tibialis pulses bilaterally. No significant lower extremity edema. (s/p left lower extremity SVG harvest). No cyanosis. Results & Data Vital Signs (Past 12 Hours) Vital Signs Pulse Pulse Resp BP BP Pulse Ox O2 Del Method 12/06/24 11:18 101 H 28 H 91 High Flow Nasal Cannula 12/06/24 09:03 101 H 28 H 118/70 88 L High Flow Nasal Cannula 12/06/24 09:00 High Flow Nasal Cannula 12/06/24 08:03 96 H 24 118/70 94 12/06/24 07:38 93 H 32 H 94 High Flow Nasal Cannula 12/06/24 07:00 98 H 23 122/71 87 L 12/06/24 06:00 94 H 19 136/68 86 L 12/06/24 05:12 93 H 32 H 87 L 12/06/24 04:24 91 H 12/06/24 04:09 90 24 135/70 90 High Flow Nasal Cannula 12/06/24 04:03 92 H 16 135/70 94 12/06/24 03:51 93 H 23 90 12/06/24 03:41 94 H 28 H 90 High Flow Nasal Cannula 12/06/24 03:15 90 14 98 12/06/24 03:00 106/65 12/06/24 02:54 90 20 98 12/06/24 02:15 100 H 26 H 80 L 12/06/24 02:01 128/88 12/06/24 01:51 98 H 22 85 L 12/06/24 01:00 93 H 20 107/72 96 12/06/24 00:19 96 H 16 125/64 97 High Flow Nasal Cannula O2 Flow Rate FiO2 12/06/24 11:18 60 100 12/06/24 09:03 60 100 12/06/24 09:00 60 100 12/06/24 08:03 12/06/24 07:38 60 100 12/06/24 07:00 12/06/24 06:00 12/06/24 05:12 12/06/24 04:24 12/06/24 04:09 60 100 12/06/24 04:03 12/06/24 03:51 12/06/24 03:41 60 100 12/06/24 03:15 12/06/24 03:00 12/06/24 02:54 12/06/24 02:15 12/06/24 02:01 12/06/24 01:51 12/06/24 01:00 12/06/24 00:19 60 100 Intake & Output 12/04/24 12/05/24 12/06/24 12/07/24 06:59 06:59 06:59 06:59 Intake Total 870 / 870 2786.750 / 2786.750 3351.183 / 3351.183 171.583 / 171.583 Output Total 1301 / 1301 2675 / 2675 1600 / 1600 Balance -431 / -431 111.750 / 418.786 9193.183 / 1751.183 171.583 / 171.583 Weight 170 lb 6.677 oz 170 lb 6.677 oz 174 lb 6.17 oz Laboratory Results Laboratory Results - last 24 hr 12/02/24 12/03/24 12/06/24 Unknown 12:06 02:00 WBC RBC Hgb Hct MCV MCH MCHC RDW Std Deviation RDW Coeff of Joesph Plt Count MPV Immature Gran % (Auto) Neut % (Auto) Lymph % (Auto) [place] % (Auto) Eos % (Auto) Baso % (Auto) Neut # (Auto) Lymph # (Auto) [place] # (Auto) Eos # (Auto) Baso # (Auto) Immature Gran # (Auto) Absolute Nucleated RBC Nucleated RBC % (auto) Neutrophils % (Manual) Lymphocytes % (Manual) Monocytes % (Manual) Neutrophils # (Manual) Total Absolute Neuts Lymphocytes # (Manual) Total Abs Lymphocytes Monocytes # (Manual) Polychromasia Basophilic Stippling Tear Drop Cells Heparin Anti-Xa, Unfract Sodium Potassium Chloride Carbon Dioxide Anion Gap BUN Creatinine Est Cr Clr Drug Dosing eGFR BUN/Creatinine Ratio Glucose Calcium Phosphorus Magnesium Iron TIBC Transferrin Transferrin % Sat Ferritin Total Bilirubin AST ALT Alkaline Phosphatase C-Reactive Protein Total Protein Albumin Globulin Albumin/Globulin Ratio Vitamin B12 Folate Procalcitonin TSH SARS-CoV-2 (PCR) NEGATIVE Influenza Type A (PCR) Negative Influenza Type B (PCR) Negative Urine Legionella Ag SEE NOTE RSV (RT-PCR) Negative Beta-(1,3)-D-Glucan <31 B-(1,3)-D-Glucan Intrp Negative 12/06/24 12/06/24 04:41 11:29 WBC 4.67 L 5.00 RBC 2.55 L 2.59 L Hgb 7.3 L 7.5 L Hct 22.4 L 22.5 L MCV 87.8 86.9 MCH 28.6 29.0 MCHC 32.6 33.3 RDW Std Deviation 58.5 H 58.1 H RDW Coeff of Joesph 18.6 H 18.6 H Plt Count 128 L 136 MPV 11.2 11.0 Immature Gran % (Auto) 1.8 Neut % (Auto) 87.4 Lymph % (Auto) 3.6 [place] % (Auto) 7.2 Eos % (Auto) 0.0 Baso % (Auto) 0.0 Neut # (Auto) 4.37 Lymph # (Auto) 0.18 L [place] # (Auto) 0.36 Eos # (Auto) 0.00 Baso # (Auto) 0.00 Immature Gran # (Auto) 0.09 Absolute Nucleated RBC 0.02 Nucleated RBC % (auto) 0.4 Neutrophils % (Manual) 94 Lymphocytes % (Manual) 3 Monocytes % (Manual) 3 Neutrophils # (Manual) 4.39 Total Absolute Neuts 4.39 Lymphocytes # (Manual) 0.14 L Total Abs Lymphocytes 0.14 L Monocytes # (Manual) 0.14 Polychromasia 1+ 1+ Basophilic Stippling 1+ Tear Drop Cells 1+ Heparin Anti-Xa, Unfract 0.81 H* Sodium 127 L Potassium 3.8 Chloride 92 L Carbon Dioxide 26 Anion Gap 9 BUN 24 H Creatinine 1.13 Est Cr Clr Drug Dosing 47.9 eGFR 65.30 BUN/Creatinine Ratio 21.2 H Glucose 233 H Calcium 8.2 L Phosphorus 3.6 Magnesium 2.3 Iron 75 TIBC 277 Transferrin 198 L Transferrin % Sat 27 Ferritin 2070.0 H Total Bilirubin 0.7 AST 54 H ALT 43 Alkaline Phosphatase 153 H C-Reactive Protein 3.76 H Total Protein 5.9 L Albumin 3.3 L Globulin 2.6 Albumin/Globulin Ratio 1.3 Vitamin B12 893 Folate 8.07 Procalcitonin 0.05 TSH 2.077 SARS-CoV-2 (PCR) Influenza Type A (PCR) Influenza Type B (PCR) Urine Legionella Ag RSV (RT-PCR) Beta-(1,3)-D-Glucan B-(1,3)-D-Glucan Intrp Diagnostic Findings Labs reviewed and notable for hyponatremia, normal potassium, stable renal function, slightly elevated AST, normal TSH, chronic anemia. Telemetry personally reviewed: Atrial fibrillation began on 12/04/2024 at approximately 9:20 AM and seem to convert near 11 AM. Sinus rhythm on telemetry this morning when evaluated. Nonsustained episodes of ventricular tachycardia including while at the bedside (asymptomatic). ECG personally reviewed 12/04/2024 at 10:26 AM: A-fib RVR [address]/T wave abnormality. Echo report reviewed from 11/30/2024: Normal LV size. EF 55-60%. No regional wall motion abnormalities. Bioprosthetic mitral valve without significant stenosis or regurgitation. Chest x-ray 12/06/2024: Diffuse opacification of both lungs, increased on the left side. Medications Administered Current Inpatient Medications Acetaminophen (Acetaminophen 325 Mg Tab) 650 mg PO Q4H PRN PRN Reason: Pain or Fever Stop: 12/29/24 23:33 Last Admin: 12/05/24 09:55 Dose: 650 mg Al Hydrox/Mg Hydrox/Simethicone (Aluminum/Magnesium Susp 30 Ml Udc) 15 ml PO Q6H PRN PRN Reason: Heartburn Stop: 12/30/24 05:33 Last Admin: 11/30/24 05:47 Dose: 15 ml Albuterol (Albut/Ipratrop 3mg/0.5mg Neb 3 Ml Vial) 3 ml NEB Q6R PRN; Protocol PRN Reason: Shortness Of Breath Or Wheezing Stop: 12/30/24 01:27 Last Admin: 12/05/24 13:25 Dose: 3 ml Aspirin (Aspirin 81 Mg Ectab) 81 mg PO QAM [facility] Stop: 12/30/24 08:59 Last Admin: 12/06/24 11:02 Dose: Not Given Atorvastatin Calcium (Atorvastatin 40 Mg Tab) 40 mg PO HS [facility] Stop: 12/29/24 23:33 Last Admin: 12/05/24 20:05 Dose: 40 mg Azithromycin (Azithromycin 250 Mg Tab) 250 mg PO QAM [facility] Stop: 12/08/24 08:59 Last Admin: 12/06/24 11:02 Dose: Not Given Budesonide (Budesonide 0.5 Mg/2 Ml Vial (Pulmicort)) 0.5 mg NEB BIDR [facility] Stop: 01/02/25 18:59 Last Admin: 12/06/24 07:37 Dose: 0.5 mg Calcium Polycarbophil (Calcium Polycarbophil 625mg Tab) 625 mg PO BID [facility] Stop: 12/29/24 23:33 Last Admin: 12/06/24 11:02 Dose: Not Given Docusate Sodium (Docusate Sodium 100 Mg Cap) 100 mg PO BID PRN PRN Reason: Constipation Stop: 12/29/24 23:33 Formoterol Fumarate (Formoterol 20 Mcg/2 Ml Vial) 20 mcg NEB BIDR [facility] Stop: 01/02/25 18:59 Last Admin: 12/06/24 07:37 Dose: 20 mcg Heparin Sodium/Dextrose (Heparin 01909 Unit/500 Ml D5w) 25,000 units in 500 mls @ 25 mls/hr IV .Q20H [facility]; Protocol Stop: 12/29/24 19:44 Last Titration: 12/06/24 07:36 Dose: 1,250 units/hr, 25 mls/hr Piperacillin Sod/Tazobactam Sod (Zosyn) 4.5 gm in 100 mls @ 25 mls/hr IV Q8H [facility]; Protocol Stop: 12/10/24 19:29 Last Infusion: 12/06/24 09:24 Dose: Infused Diltiazem HCl 125 mg/ Dextrose 125 mls @ 5 mls/hr IV .Q24H [facility]; Protocol Stop: 01/03/25 10:29 Last Titration: 12/06/24 09:24 Dose: Infused Methylprednisolone 125 mg/ (Syringe) 2 mls @ 0.667 mls/min IV Q6H RITO Stop: 01/03/25 14:59 Last Admin: 12/06/24 07:48 Dose: 0.667 mls/min Vancomycin HCl 1,750 mg/ (Sodium Chloride) 535 mls @ 200 mls/hr IV NOW ONE Stop: 12/06/24 14:10 Latanoprost (Latanoprost 0.005% Op Soln 2.5 Ml Btl) 1 drops OPR HS [facility] Stop: 12/29/24 23:33 Last Admin: 12/05/24 20:06 Dose: 1 drops Levothyroxine Sodium (Levothyroxine Sodium 50 Mcg Tablet) 50 mcg PO DAILYBB [facility] Stop: 12/30/24 06:29 Last Admin: 12/06/24 05:55 Dose: 50 mcg Lorazepam (Lorazepam 2 Mg/1 Ml Vial) 0.5 mg IV Q8H PRN PRN Reason: Anxiety/Agitation Stop: 01/05/25 08:37 Melatonin (Melatonin 3 Mg Tab) 3 mg PO HS PRN PRN Reason: Insomnia Stop: 12/29/24 23:33 Last Admin: 12/05/24 22:02 Dose: 3 mg Menthol (Cough Drop (Sugar Free) Candida 24 Candida/1 Box) 1 candida BUCCAL Q2H PRN PRN Reason: Sore Throat Stop: 01/01/25 00:15 Last Admin: 12/02/24 00:32 Dose: 1 candida Metoprolol Succinate (Metoprolol Succ 25mg Ext Rel Tab) 25 mg PO QAM [facility] Stop: 12/30/24 08:59 Last Admin: 12/06/24 11:02 Dose: Not Given Miscellaneous Information (Vancomycin Consult Active) 1 each N/A UD PRN PRN Reason: Consult Stop: 01/05/25 11:11 Morphine Sulfate (Morphine Sulfate 2 Mg/Ml Carp) 1 mg IV Q4H PRN PRN Reason: Mod-Sev Pain (Scale 4-10) Stop: 12/19/24 18:11 Last Admin: 12/05/24 18:23 Dose: 1 mg Ondansetron HCl (Ondansetron Inj 2 Mg/Ml 2 Ml Vial) 4 mg IV Q6H PRN PRN Reason: Nausea And Vomiting Stop: 12/29/24 23:33 Pantoprazole Sodium (Pantoprazole 40 Mg Tab) 40 mg PO DAILY RITO Stop: 12/30/24 08:59 Last Admin: 12/06/24 11:02 Dose: Not Given Phenol (Chloraseptic (Phenol) 1.4% Soln 180 Ml Btl) 1 sprays MT Q2H PRN PRN Reason: Sore Throat Stop: 01/04/25 11:36 Tamsulosin HCl (Tamsulosin Hcl 0.4 Mg Cap) 0.8 mg PO QPM [facility] Stop: 12/29/24 23:33 Last Admin: 12/05/24 20:06 Dose: 0.8 mg PG Care Time/CCT Total # of Minutes Spent Total Time Spent with Patient: Total time spent is greater than 50% in coordination of care (as documented) at patient's floor/unit and/or counseling patient: Coding Level of Care Code 81580 INT INP/OBS CARE 3/75MIN Diagnoses Paroxysmal atrial fibrillation I48.0 V tach I47.20 Bilateral pulmonary embolism I26.99 CAD (coronary artery disease) I25.10 Hx of CABG Z95.1 History of mitral valve replacement Z95.2 Acute hypoxic respiratory failure J96.01
[2024-12-06 12:17] LABS: Hematocrit (blood only) 22.5 % (42.0-52.0); Hemoglobin 7.5 g/dl (14.0-18.0); Mean Corpuscular Hemoglobin 29.0 pg (25.0-34.0); Mean Corpuscular Volume 86.9 fL (80.0-100.0); Platelet Count 136 K/uL (130-400); RDW Standard Deviation 58.1 fL (36.4-46.3); Red Blood Count 2.59 M/uL (4.70-6.10); White Blood Count 5.00 K/ul (4.8-10.8)
[2024-12-06 12:18] LABS: Basophilic Stippling 1+; Immature Granulocytes # (auto) 0.09 K/uL (0.01-0.20); Immature Granulocytes % (auto) 1.8 %; Polychromasia 1+; Tear Drop Cells 1+
[2024-12-06] MEDS: VANCOMYCIN HCL 1,750 MG in SODIUM CHLORIDE 0.9% 500 ML IV ONE (12:33)
[2024-12-06] MEDS: CALCIUM GLUCONATE 1,000 MG/60 ML BAG IV STA (12:36)
[2024-12-06] MEDS: FUROSEMIDE 40 MG/4 ML VIAL IV ONE (12:37)
--- NOTE | 2024-12-06 12:50 | Pharmacy Report ---
Pharmacy PK ABX Note - Date of Service December 06, 2024 - Assessment and Plan Assessment 79 year old M previously receiving ZOSYN/AZITHROMYCIN/Bactrim for treatment of PNA. Bactrim discontinued today. Vancomycin started for Staph haemolyticus now growing in sputum culture. Patient with history of right lung adenocarcinoma, pulm HTN, emphysema, also with pulmonary emboli. SCr had been on upward trend with initiation of Bactrim-- monitor Plan Vancomycin * Loading dose: 1750 mg IV x 1 * Maintenance dose: 1250 mg IV every 24 hours * Regimen is predicted to achieve target AUC/AYAZ of 400-600 mg/L.hr * Will order level if continued >48 hours as there are pending sensitivities. Pharmacy will continue to follow and will adjust dose/frequency as necessary. Thank you. Pharmacy has transitioned to AUC monitoring for vancomycin. AUC/AYAZ is the prefe rred PK/PD target and is associated with decreased risk of nephrotoxicity compared to traditional trough targets.
[2024-12-06 12:53] LABS: Anion Gap 10.0 (3-11); Blood Urea Nitrogen 24.0 mg/dl (6-23); Calcium 8.4 mg/dl (8.6-10.3); Carbon Dioxide 27.0 mmol/L (21-32); Chloride 93.0 mmol/L (98-107); Creatinine Clr Calc Pharmacy 50.6 ml/min; Glucose 139.0 mg/dl (70-99(Fasting)); Magnesium 2.2 mg/dl (1.7-2.4); Potassium 3.8 mmol/L (3.5-5.1); Sodium 130.0 mmol/L (136-145)
[2024-12-06 13:33] LABS: ANTI-Xa, UFH(UnfractionatedHep 0.64 IU/ml (0.3-0.7)
[2024-12-06] MEDS: POTASSIUM CHLORIDE CRTAB 20 MEQ TABCR PO STA (14:29)
[2024-12-06] MEDS: POTASSIUM CHLORIDE / WTR 20 MEQ/100 ML PLCT IV ONE (15:12)
[2024-12-06] MEDS: AZITHROMYCIN 250 MG in DEXTROSE 5% 250 ML IV SCH (15:48)
--- NOTE | 2024-12-06 16:32 | Advance Care Plan Prog Note ---
Advanced Care Planning Note Date of Discussion December 06, 2024 ACP Discussion Diagnoses requiring ACP discussion:*Metastatic lung cancer, acute respiratory failure with hypoxemia, pneumonia, rapid atrial fibrillation, nonsustained ventricular tachycardia, bilateral pulmonary emboli A [id number] discussion with the*patient's daughterZeenat regarding the patient's advanced care planning took place during this hospitalization on the above date. The discussion included the explanation and discussion of advance directives and associated forms/documents, as well as the patient's current code status. We also discussed at length the patient's medical conditions (both acute and chronic), general prognosis, treatment options, and goals of care. The following summarizes the discussion:*Patient continues to decompensate from a respiratory standpoint, has worsening hyponatremia, is maxed out on supplemental oxygen and he declines intubation. He is in rapid atrial fibrillation and had nonsustained ventricular tachycardia, all signs of decompensating cardiopulmonary condition related to pneumonia, radiation pneumonitis, and metastatic lung cancer treated with chemotherapy. The patient's was unable to be present for the conversation as she was currently occupied with euthanizing the family dog. The daughter understands the very guarded and poor prognosis and is in agreement with current treatment, addition of antibiotics as needed to continue current infection, and addition of morphine for pain or air hunger and Ativan for anxiety. She asked about possibility of bringing patient home and on hospice but it was explained to her that this was not possible given the amount of oxygen that he is requiring in the hospital and the chance that he would likely pass away and route to home. We discussed involving the patient's when she arrives with further discussions and frequent reassessment of the patient's situation with a focus on likely moving towards comfort care if he has any further decline. Advance Care Planning/Goals of Care Continue current evaluation & management of any acute/chronic issues, Will continue to support the patient/family and Will continue to discuss both short- and long-term goals of care Status Resuscitation Status DNR/DNI No Resuscitation Total Time I spent a total of [*25] minutes was spent on this discussion, including counseling, answering questions, and completing, if any, pertinent advanced care planning forms/documents.
[2024-12-06] MEDS: ONDANSETRON INJ 2 MG/ML 2 ML VIAL IV PRN (16:56)
[2024-12-06] MEDS: METOPROLOL TARTRATE 1 MG/ML VIAL IV SCH (18:49)
[2024-12-06] MEDS: PANTOprazole 40 MG/10 ML SYR IV SCH (18:50)
[2024-12-07 05:38] LABS: Hematocrit (blood only) 22.0 % (42.0-52.0); Hemoglobin 7.2 g/dl (14.0-18.0); Mean Corpuscular Hemoglobin 28.7 pg (25.0-34.0); Mean Corpuscular Volume 87.6 fL (80.0-100.0); Platelet Count 130 K/uL (130-400); RDW Standard Deviation 58.4 fL (36.4-46.3); Red Blood Count 2.51 M/uL (4.70-6.10); White Blood Count 4.36 K/ul (4.8-10.8)
[2024-12-07 05:44] LABS: Alanine Aminotransferase 41.0 U/L (7-52); Albumin Globulin Ratio 1.1 (0.9-2); Albumin Level 3.2 gm/dl (3.4-5.0); Alkaline Phosphatase 187.0 U/L (34-104); Anion Gap 7.0 (3-11); Bilirubin,Total 0.8 mg/dl (0.2-1.0); Blood Urea Nitrogen 28.0 mg/dl (6-23); Calcium 8.8 mg/dl (8.6-10.3); Carbon Dioxide 30.0 mmol/L (21-32); Chloride 96.0 mmol/L (98-107); Creatinine Clr Calc Pharmacy 52.6 ml/min; Globulin 2.8 gm/dl (2.5-4.0); Glucose 147.0 mg/dl (70-99(Fasting)); Magnesium 2.4 mg/dl (1.7-2.4); Potassium 4.3 mmol/L (3.5-5.1); Sodium 133.0 mmol/L (136-145); Total Protein 6.0 gm/dl (6.0-8.3)
[2024-12-07 05:50] LABS: Immature Granulocytes # (auto) 0.09 K/uL (0.01-0.20); Immature Granulocytes % (auto) 2.1 %; RBC Morphology Unremarkable
[2024-12-07] MEDS: VANCOMYCIN HCL 1,250 MG in SODIUM CHLORIDE 0.9% 250 ML IV SCH (05:51)
[2024-12-07 06:19] LABS: ANTI-Xa, UFH(UnfractionatedHep 1.18 IU/ml (0.3-0.7)
[2024-12-07 07:39] LABS: ANTI-Xa, UFH(UnfractionatedHep 0.77 IU/ml (0.3-0.7)
[2024-12-07] MEDS: LEVOTHYROXINE SODIUM 25 MCG in SYRINGE 0 ML IV SCH (09:02)
[2024-12-07] MEDS ORDERED: SODIUM CHLORIDE 0.9% 100 ML IV PRN (12:04)
[2024-12-07] MEDS: FUROSEMIDE 40 MG/4 ML VIAL IV ONE (12:20)
--- NOTE | 2024-12-07 12:33 | Hospitalist Progress Note ---
Date of Service December 07, 2024 Assessment & Plan (1) Acute hypoxic respiratory failure: (2) Bilateral pulmonary embolism: (3) Atrial fibrillation with rapid ventricular response: (4) Bilateral pulmonary infiltrates: (5) Adenocarcinoma of lung: Plan This patient is an 79yo male with lung cancer with metastatic disease to mediastinal lymph nodes, CAD s/p 2V CABG, porcine MVR, and maze procedure in March 2024, paroxysmal atrial fibrillation, COPD, HTN, HLD, hypothyroidism, GERD, presenting with two weeks of progressive SOB and LE edema. Patient hypoxic to 88% on room air on arrival. Not on O2 at home. Patient found with bilateral pulmonary emboli and has since developed profound respiratory failure and multifocal pneumonia vs radiation pneumonitis #Acute hypoxic respiratory failure/Staphylococcus haemolyticus PNA - multifactorial - underlying lung cancer, pulmonary emboli, pulmonary edema, pneumonia/infectious process, possible radiation pneumonitis, COPD, and rapid Afib all contributing. Viral biofire panel is NEGATIVE on 11/29 and COVID/flu/RSV negative again on 12/05. Legionella antigen negative. He significantly decompensated several days into his admission and is now on HFNC max settings with 15L O2 oxygen mask on top of that with ongoing tachypnea. Has received IV lasix, is on high dose IV steroids, and broad-spectrum antibiotics. Appreciate PULM consult-too high risk for bronchoscopy now and with low yield. Sputum culture now positive for Staphylococcus hemolyticus which was resistant to penicillin and Bactrim. Now on IV vancomycin Beta D glucan negative making PJP less likely. CRP trending down from 12 to 3 CXR 12/07 with diffuse infiltrates but slightly improved from previous -Give IV lasix x 1 again today -continue high dose steroids for possible radiation pneumonitis -continue IV vancomycin, and finish out course of azithromycin and pip-tazo for broad-spectrum antibiotics for pneumonia-bactrim added for PJP coverage has now been discontinued -continue supplemental O2 and wean as able -continue pulm toilet, nebs-ICS and LABA -f/u PJP sputum when available - For severe respiratory distress and anxiety, added as needed IV morphine and as needed IV lorazepam - Appreciate palliative medicine consultation-patient reaffirms he does not want intubation or resuscitation -Respiratory distress somewhat improved-advance diet to full liquids and added boost shakes #Atrial fibrillation with rapid ventricular rate/nonsustained ventricular tachycardia- went into rapid A-fib on AM of 12/04. Has a history of afib and underwent Maze procedure with his CABG and MVR in 03/2024. Received bolus of IV dilt and soft BPs improved, dilt gtt was continued at 5 mg/hr, BPs remained soft. Recent ECHO with normal EF. Rates remain in 100-110s at rest but then spontaneously converted to normal sinus rhythm and sinus tachycardia on 12/06 with improvement in BPs. TSH normal. Appreciate cardiology consultation -Continue metoprolol 5 mg IV every 6 hours scheduled and convert back to p.o. metoprolol likely tomorrow -Consider amiodarone for nonsustained VT and U-pwd-[id number] declines for now due to previous side effects -Continue to monitor on tele -continue on heparin gtt with plan to convert to Eliquis for PEs -follow BMP, mag and keep lytes replete #Bilateral subsegmental pulmonary emboli - in setting of malignancy. -Continue heparin gtt -monitor CBC given thrombocytopenia -Plan to DC on Apixaban #Hyponatremia-sodium down to 127 from 134 likely from Bactrim-now improved with stopping Bactrim and giving diuretics - Follow BMP #Adenocarcinoma of the lung - IIIb. patient is s/p chemotherapy and XRT. Is planning to start immunotherapy in December. #antineoplastic chemotherapy induced pancytopenia-pancytopenia noted on bloodwork-WBC count and platelets improving, hemoglobin drifting down to 7.2 and with significant hypoxemia. B12, folate, iron studies acceptable-ferritin quite elevated due to profound inflammation. TSH normal -follow CBC in AM - Transfuse 1 unit PRBCs on 12/07 with IV Lasix #CAD - patient s/p CABG x 2V performed in March 2024 as well as mitral valve replacement with porcine valve and maze procedure -Echo 12/02 reassuring -Continue ASA, atorvastatin, Metoprolol switched to IV #Hypertension - blood pressure acceptable -Continue Metoprolol #Hyperlipidemia -Continue Atorvastatin #Hypothyroidism-TSH here normal -Continue Synthroid but switch to IV every 72 hours at half dose of 25 mcg-can switch to p.o. likely on 12/08 #Emphysema -Continue nebs #GERD -Continue Protonix IV DVT ppx -continues on on heparin drip for PEs, follow anti-Xa levels which have been supratherapeutic Dispo-continued stay PCU, guarded prognosis, appreciate palliative medicine consultation. Discussed care at length with on 12/07 Admission and Anticipated Discharge Date Admission Date: November 29, 2024 Subjective Patient remains on max high flow nasal cannula along with max oxygen mask on top of that. He does appear more comfortable today and is maintaining sats in the high 80s to mid 90s with sitting still. His sats do drop with movement. He moved his bowels today. He is using a condom catheter. He is eating some clear liquids. I discussed his care with his at the bedside. I also discussed his care at length with the bevel polisher. Patient is agreeable to receiving 1 unit of blood transfused today Telemetry remains with normal sinus rhythm with rates in the 90s to low 100s Physical Exam Constitutional: + ill appearing Eyes: + anicteric sclerae Respiratory: + labored breathing and + tachypneic Auscultation: + crackles (bilat lower and middle lung christianson); no rhonchi and no wheezes Cardiovascular: Heart Sounds: no murmur Extremities: no edema Gastrointestinal (Abdomen): normal bowel sounds, soft, nontender, no hepatosplenomegaly Psychiatric: Orientation: alert, oriented x 3 and cooperative Results & Data Results & Data Vital Signs (Past 12 Hours) Vital Signs Temp Pulse Pulse Resp BP Pulse Ox O2 Del Method 12/07/24 12:17 109 H 117/77 12/07/24 10:09 121 H 28 H 87 L 12/07/24 10:00 133/71 12/07/24 09:45 122 H 18 90 12/07/24 09:06 103 H 25 H 89 L 12/07/24 09:00 130/72 12/07/24 08:54 118 H 20 87 L 12/07/24 08:06 94 H 21 92 12/07/24 08:00 Oxymask, High Flow Nasal Cannula 12/07/24 08:00 124/67 12/07/24 07:57 89 14 93 12/07/24 07:22 88 20 94 High Flow Nasal Cannula 12/07/24 07:12 87 14 94 12/07/24 07:00 106/65 12/07/24 06:18 84 128/79 12/07/24 05:51 98 H 130/74 12/07/24 05:04 36.2 C L 12/07/24 05:01 127/79 12/07/24 04:42 120 H 28 H 79 L 12/07/24 04:01 154/76 H 12/07/24 04:00 94 H 19 92 12/07/24 03:03 95 H 15 94 12/07/24 03:02 116 H 18 93 High Flow Nasal Cannula 12/07/24 03:00 107/83 12/07/24 02:57 92 H 22 91 12/07/24 02:21 111 H 14 91 12/07/24 01:00 90 125/71 12/07/24 01:00 85 17 125/71 92 12/07/24 00:45 132/76 12/07/24 00:39 106 H 15 93 O2 Flow Rate FiO2 12/07/24 12:17 12/07/24 10:09 12/07/24 10:00 12/07/24 09:45 12/07/24 09:06 12/07/24 09:00 12/07/24 08:54 12/07/24 08:06 12/07/24 08:00 60 100 12/07/24 08:00 12/07/24 07:57 12/07/24 07:22 60 100 12/07/24 07:12 12/07/24 07:00 12/07/24 06:18 12/07/24 05:51 12/07/24 05:04 12/07/24 05:01 12/07/24 04:42 12/07/24 04:01 12/07/24 04:00 12/07/24 03:03 12/07/24 03:02 60 100 12/07/24 03:00 12/07/24 02:57 12/07/24 02:21 12/07/24 01:00 12/07/24 01:00 12/07/24 00:45 12/07/24 00:39 Laboratory Results CBC, BMP, magnesium, LFTs, anti-Xa level, sputum culture reviewed PG Care Time/CCT Total # of Minutes Spent Total Time Spent with Patient: Total time spent is greater than 50% in coordination of care (as documented) at patient's floor/unit and/or counseling patient: Coding Level of Care Code 36162 SUB INP/OBS CARE 3/50MIN Diagnoses Acute hypoxic respiratory failure J96.01 Bilateral pulmonary embolism I26.99 Atrial fibrillation with rapid ventricular response I48.91 Bilateral pulmonary infiltrates R91.8 Adenocarcinoma of right lung C34.91 Laterality: right (5) Adenocarcinoma of lung Laterality: right Qualified Code(s): C34.91 - Malignant neoplasm of unspecified part of right bronchus or lung
--- NOTE | 2024-12-07 13:22 | Pulmonology Progress Note ---
Date of Service December 07, 2024 Assessment & Plan (1) Acute hypoxic respiratory failure: (2) Pulmonary hypertension: (3) Lung mass: (4) Adenocarcinoma of lung: Laterality: right Qualified Code(s): C34.91 - Malignant neoplasm of unspecified part of right bronchus or lung (5) Bilateral pulmonary embolism: (6) Hx of emphysema: (7) Atrial fibrillation with rapid ventricular response: (8) V tach: (9) Pancytopenia: (10) Diarrhea: Plan: Probably antibiotic induced. Initiate probiotics. Low threshold for C. difficile testing. Plan Benigno Shay is an 79-year-old male with past medical history of right lung adenocarcinoma, CAD, pulmonary HTN, emphysema, hypothyroidism, GERD, HTN, esophageal varices, TMJ, and vitamin D deficiency. Patient followed by Dr. Mcbride from pulmonary. Patient initially presented to [facility] on 11/30/2024 with shortness of breath and lower extremity edema. Patient found to have bilateral lower lobe subsegmental pulmonary emboli and increased ground glass opacities in bilateral lung christianson. Patient with likely chemoradiation induced pneumonitis, aspiration pneumonitis and volume overload contributing to his symptoms. Pulmonary emboli also contributing. Continue heparin drip. Will transfuse 1 unit of RBCs today given worsening anemia and hypoxemia. 40 mg of IV Lasix given with 800 cc of urine output. Continue high-dose steroids. Continue vancomycin, Zosyn and atypical coverage. Patient sputum cultures growing Staphylococcus hemolyticus. Patient still remains critically ill with a generally poor prognosis. Discussed extensively with bedside RN and hospitalist service. I spent 50 minutes reviewing the electronic medical record/relevant imaging, 20 minutes discussing diagnosis and treatment plan with patient/family, and 30 minutes discussing care plan with ancillary staff such as RT/RN/pharmacist/casino gaming inspector/PT/OT/other consulting medical services. CRITICAL CARE TIME I have personally spent 50 minutes of critical care time in the direct management of this patient. This is a life/limb threatening event. This includes time spent evaluating patient, direct bedside care, chart review, placing orders, interpretation of diagnostic studies, discussion with consultants, patient, and family members, as well as other required patient management activities. This time is exclusive of all separately billable procedures, and teaching time and separate from and in addition to any other critical care service time. Admission and Anticipated Discharge Date Admission Date: November 29, 2024 Subjective Patient notes improvement in anxiety today. He is less dyspneic. Overnight, he did have significant dyspnea and required morphine and Ativan. He is still requiring very high amounts of supplemental oxygen. He was diuresing well with Lasix. Review of Systems Review of Systems: All systems reviewed & are unremarkable except as noted in HPI & below Physical Exam Physical Exam: VITALS: Reviewed. WEIGHT/BMI reviewed. GEN: Chronically ill, states age appearing, well-developed, NAD. PSYCH: Good Judgment. AOx3. Normal memory, mood, and affect. HEENT -Head: NC/AT; -Eyes: PERRL, EOMI. No discharge or redn ess; -Ears: External ears are normal. -Nose: Normal nares. NECK: Supple, with no masses. CV: RRR, no m/r/g. LUNGS: Mildly increased work of breathing. Mild crackles. ABD: Soft, NT/ND, NBS, no masses or organomegaly. : N/A SKIN: Warm, well perfused. No skin rashes or abnormal lesions. MSK: No deformities, Normal gait. EXT: No clubbing, cyanosis, or edema. NEURO: Normal muscle strength and tone. No focal deficits. Results & Data Results & Data Vital Signs (Past 12 Hours) Vital Signs Temp Pulse Pulse Resp BP Pulse Ox O2 Del Method 12/07/24 13:06 96 H 25 H 95 12/07/24 13:00 128/74 12/07/24 12:48 94 H 28 H 87 L 12/07/24 12:32 94 H 12/07/24 12:17 109 H 117/77 12/07/24 12:06 106 H 34 H 89 L 12/07/24 12:00 117/77 12/07/24 11:57 119 H 14 93 12/07/24 11:09 106 H 22 94 12/07/24 10:09 121 H 28 H 87 L 12/07/24 10:00 133/71 12/07/24 09:45 122 H 18 90 12/07/24 09:06 103 H 25 H 89 L 12/07/24 09:00 130/72 12/07/24 08:54 118 H 20 87 L 12/07/24 08:06 94 H 21 92 12/07/24 08:00 Oxymask, High Flow Nasal Cannula 12/07/24 08:00 124/67 09/13/25 07:57 89 14 93 12/07/24 07:22 88 20 94 High Flow Nasal Cannula 12/07/24 07:12 87 14 94 12/07/24 07:00 106/65 12/07/24 06:18 84 128/79 12/07/24 05:51 98 H 130/74 12/07/24 05:04 36.2 C L 12/07/24 05:01 127/79 12/07/24 04:42 120 H 28 H 79 L 12/07/24 04:01 154/76 H 12/07/24 04:00 94 H 19 92 12/07/24 03:03 95 H 15 94 12/07/24 03:02 116 H 18 93 High Flow Nasal Cannula 12/07/24 03:00 107/83 12/07/24 02:57 92 H 22 91 12/07/24 02:21 111 H 14 91 O2 Flow Rate FiO2 12/07/24 13:06 12/07/24 13:00 12/07/24 12:48 12/07/24 12:32 12/07/24 12:17 12/07/24 12:06 12/07/24 12:00 12/07/24 11:57 12/07/24 11:09 12/07/24 10:09 12/07/24 10:00 12/07/24 09:45 12/07/24 09:06 12/07/24 09:00 12/07/24 08:54 12/07/24 08:06 12/07/24 08:00 60 100 12/07/24 08:00 12/07/24 07:57 12/07/24 07:22 60 100 12/07/24 07:12 12/07/24 07:00 12/07/24 06:18 12/07/24 05:51 12/07/24 05:04 12/07/24 05:01 12/07/24 04:42 12/07/24 04:01 12/07/24 04:00 12/07/24 03:03 12/07/24 03:02 60 100 12/07/24 03:00 12/07/24 02:57 12/07/24 02:21 PG Care Time/CCT Total # of Minutes Spent Total Time Spent with Patient: Total time spent is greater than 50% in coordination of care (as documented) at patient's floor/unit and/or counseling patient: Coding Level of Care Code 62317 CRITICAL CARE 1ST 30-74M Diagnoses Acute hypoxic respiratory failure J96.01 Pulmonary hypertension I27.20 Lung mass R91.8 Adenocarcinoma of right lung C34.91 Laterality: right Bilateral pulmonary embolism I26.99 Hx of emphysema J43.9 Atrial fibrillation with rapid ventricular response I48.91 V tach I47.20 Pancytopenia D61.818 Diarrhea R19.7
[2024-12-07] MEDS ORDERED: SACCHAROMYCES BOULARDII 250 MG CAP PO SCH (13:30)
[2024-12-07 15:31] LABS: ANTI-Xa, UFH(UnfractionatedHep 1.01 IU/ml (0.3-0.7)
--- NOTE | 2024-12-07 15:31 | XRay Report ---
Chest radiograph, one view History: ARSD. Comparison: Prior day exam. Findings: Left chest port catheter again noted. Likely CABG changes. Persistent least moderate diffuse probably bilateral perihilar and left infrahilar increased reticular markings with airspace opacities and mild air bronchograms. Obscuration portions of the left hemidiaphragm and heart borders with diminished pulmonary vascular clarity. Suspect small effusions. Overall there appears to be improved definition of the interstitial markings. Likely cardiac valve prosthesis. Impression: Persistent but slightly improved moderate diffuse increased interstitial and airspace opacities most worrisome for interstitial edema. Pneumonia is not excluded. Electronically signed by Pancho Lin 12-07-2024 3:30 PM
[2024-12-07 22:00] LABS: Alanine Aminotransferase 41.0 U/L (7-52); Albumin Globulin Ratio 1.1 (0.9-2); Albumin Level 3.3 gm/dl (3.4-5.0); Alkaline Phosphatase 209.0 U/L (34-104); Anion Gap 7.0 (3-11); Bilirubin,Total 1.1 mg/dl (0.2-1.0); Blood Urea Nitrogen 34.0 mg/dl (6-23); Calcium 8.7 mg/dl (8.6-10.3); Carbon Dioxide 31.0 mmol/L (21-32); Chloride 98.0 mmol/L (98-107); Creatinine Clr Calc Pharmacy 52.1 ml/min; Globulin 2.9 gm/dl (2.5-4.0); Glucose 162.0 mg/dl (70-99(Fasting)); Magnesium 2.4 mg/dl (1.7-2.4); Potassium 3.7 mmol/L (3.5-5.1); Sodium 136.0 mmol/L (136-145); Total Protein 6.2 gm/dl (6.0-8.3)
[2024-12-07 22:07] LABS: ANTI-Xa, UFH(UnfractionatedHep 0.39 IU/ml (0.3-0.7)
[2024-12-08 05:00] LABS: Hematocrit (blood only) 27.4 % (42.0-52.0); Hemoglobin 8.8 g/dl (14.0-18.0); Immature Granulocytes # (auto) 0.15 K/uL (0.01-0.20); Immature Granulocytes % (auto) 2.8 %; Mean Corpuscular Hemoglobin 28.8 pg (25.0-34.0); Mean Corpuscular Volume 89.5 fL (80.0-100.0); Platelet Count 137 K/uL (130-400); RDW Standard Deviation 58.3 fL (36.4-46.3); Red Blood Count 3.06 M/uL (4.70-6.10); White Blood Count 5.35 K/ul (4.8-10.8)
[2024-12-08 05:13] LABS: Alanine Aminotransferase 37.0 U/L (7-52); Albumin Globulin Ratio 1.3 (0.9-2); Albumin Level 3.3 gm/dl (3.4-5.0); Alkaline Phosphatase 212.0 U/L (34-104); Anion Gap 7.0 (3-11); Bilirubin,Total 1.1 mg/dl (0.2-1.0); Blood Urea Nitrogen 33.0 mg/dl (6-23); Calcium 8.6 mg/dl (8.6-10.3); Carbon Dioxide 30.0 mmol/L (21-32); Chloride 100.0 mmol/L (98-107); Creatinine Clr Calc Pharmacy 54.2 ml/min; Globulin 2.6 gm/dl (2.5-4.0); Glucose 151.0 mg/dl (70-99(Fasting)); Magnesium 2.4 mg/dl (1.7-2.4); Potassium 3.9 mmol/L (3.5-5.1); Sodium 137.0 mmol/L (136-145); Total Protein 5.9 gm/dl (6.0-8.3)
[2024-12-08 05:24] LABS: ANTI-Xa, UFH(UnfractionatedHep 0.38 IU/ml (0.3-0.7)
[2024-12-08] MEDS: VANCOMYCIN LEVEL ONE (07:05)
[2024-12-08] MEDS: POTASSIUM CHLORIDE / WTR 10 MEQ/100 ML PLCT IV ONE (08:56)
--- NOTE | 2024-12-08 09:09 | XRay Report ---
XR chest 1V portable CLINICAL HISTORY: f/u PNA,hypoxia COMPARISON STUDY: 12/07/2024 FINDINGS: Stable CABG. Stable chest port. Stable cardiomegaly with pulmonary vascular congestion. Sta ble diffuse interstitial and patchy pulmonary opacities. No pleural effusion or pneumothorax seen. IMPRESSION: Stable exam. ACT 112: Negative or not required by law. Electronically signed by: Jesu Morley M.D. 12/08/2024 9:08 AM
--- NOTE | 2024-12-08 11:47 | Hospitalist Progress Note ---
Date of Service December 08, 2024 Assessment & Plan (1) Acute hypoxic respiratory failure: (2) Bilateral pulmonary embolism: (3) Atrial fibrillation with rapid ventricular response: (4) Bilateral pulmonary infiltrates: (5) Adenocarcinoma of lung: Plan This patient is an 79yo male with lung cancer with metastatic disease to mediastinal lymph nodes, CAD s/p 2V CABG, porcine MVR, and maze procedure in March 2024, paroxysmal atrial fibrillation, COPD, HTN, HLD, hypothyroidism, GERD, presenting with two weeks of progressive SOB and LE edema. Patient hypoxic to 88% on room air on arrival. Not on O2 at home. Patient found with bilateral pulmonary emboli and has since developed profound respiratory failure and multifocal pneumonia vs radiation pneumonitis #Acute hypoxic respiratory failure/Staphylococcus haemolyticus PNA - multifactorial - underlying lung cancer, pulmonary emboli, pulmonary edema, pneumonia, possible radiation pneumonitis, COPD, and rapid Afib all contributing. Viral biofire panel is NEGATIVE on 11/29 and COVID/flu/RSV negative again on 12/05. Legionella antigen negative. He significantly decompensated several days into his admission and remains on HFNC max settings with O2 oxygen mask on top of that now weaned down to 12L. Has received several doses of IV lasix, is on high dose IV steroids, as well as broad-spectrum antibiotics. Appreciate PULM consult-too high risk for bronchoscopy now and with low yield. Sputum culture positive for Staphylococcus hemolyticus which was resistant to penicillin and Bactrim. Beta D glucan negative making PJP less likely. CRP trending down from 12 to 2 CXR 12/07 with diffuse infiltrates but slightly improved from previous -Keep on full liquids diet for now until he is able to remove the oxygen mask without desatting to eat regular food -continue high dose steroids for possible radiation pneumonitis but decrease dose to 80 mg IV every 6 hours -continue IV vancomycin, pharmacy dosing-trough level low - Finish out course of azithromycin and pip-tazo for broad-spectrum antibiotics for pneumonia -bactrim initially added for PJP coverage has now been discontinued -continue supplemental O2 and wean as able -continue pulm toilet, nebs-ICS and LABA -f/u PJP sputum when available - For severe respiratory distress and anxiety, continue as needed IV morphine and as needed IV lorazepam - Appreciate palliative medicine consultation-patient reaffirms he does not want intubation or resuscitation -Follow CBC, CMP, magnesium, CRP, CXR #Atrial fibrillation with rapid ventricular rate/nonsustained ventricular tachycardia- went into rapid A-fib on AM of 12/04. Has a history of afib and underwent Maze procedure with his CABG and MVR in 03/2024. Received bolus of IV dilt and soft BPs improved, dilt gtt was continued at 5 mg/hr, BPs remained soft. Recent ECHO with normal EF. Spontaneously converted to NSR on 12/06 with improvement in BPs. TSH normal. Appreciate cardiology consultation -Continue metoprolol 5 mg IV every 6 hours scheduled and convert back to p.o. metoprolol once able to more reliably take oral medication -Consider amiodarone for nonsustained VT and O-lmp-[id number] declines for now due to previous side effects -Continue to monitor on tele -continue on heparin gtt with plan to convert to Eliquis for PEs once more stable-he does have some hemoptysis currently -follow BMP, mag and keep lytes replete #Bilateral subsegmental pulmonary emboli - in setting of malignancy -Continue heparin gtt -monitor CBC given thrombocytopenia which is now improving -Plan to DC on Apixaban #Hyponatremia-sodium down to 127 from 134 likely from Bactrim-now improved with stopping Bactrim and giving diuretics - Follow BMP #Adenocarcinoma of the lung - IIIb. patient is s/p chemotherapy and XRT. Is planning to start immunotherapy in December. #antineoplastic chemotherapy induced pancytopenia-pancytopenia noted on bloodwork-WBC count and platelets improving, hemoglobin drifted down to 7.2 and with significant hypoxemia. B12, folate, iron studies acceptable-ferritin quite elevated due to profound inflammation. TSH normal. He was transfused 1 unit PRBCs on 12/07 with improvement in Hgb to 8.8 -follow CBC in AM #CAD - patient s/p CABG x 2V performed in March 2024 as well as mitral valve replacement with porcine valve and maze procedure -Echo 12/02 reassuring -Continue ASA, atorvastatin, Metoprolol switched to IV #Hypertension - blood pressure acceptable -Continue Metoprolol #Hyperlipidemia -Continue Atorvastatin #Hypothyroidism-TSH here normal -Continue Synthroid but switch to IV every 72 hours at half dose of 25 mcg-can switch to p.o. likely on 12/09 #Emphysema -Continue nebs #GERD -Continue Protonix IV DVT ppx -continues on on heparin drip for PEs, follow anti-Xa levels Dispo-continued stay PCU/ICU overflow, guarded prognosis, appreciate palliative medicine consultation. Discussed care at length with on 12/08 Admission and Anticipated Discharge Date Admission Date: November 29, 2024 Subjective Patient seems to be in better spirits today. Reports he is getting sleep. Does not feel as short of breath. Is weaned down to 12 L of oxygen mask on top of his high flow nasal cannula 60 L 100%. Coughing up chunks of sputum. Feels his throat is very sore. I reviewed all of his care and results for the day with him and his at his bedside Telemetry with normal sinus rhythm and frequent PVCs, normal rates Physical Exam Constitutional: no acute distress Eyes: + anicteric sclerae Respiratory: + cough and able to speak in complete se ntences; no labored breathing Auscultation: + crackles (bilat lower and middle lung christianson); no rhonchi and no wheezes Cardiovascular: Rate/Rhythm: regular rate and regular rhythm Heart Sounds: no murmur Extremities: no edema Gastrointestinal (Abdomen): normal bowel sounds, soft, nontender, no hepatosplenomegaly Psychiatric: Orientation: alert, oriented x 3 and cooperative Results & Data Results & Data Vital Signs (Past 12 Hours) Vital Signs Temp Pulse Pulse Resp BP BP Pulse Ox 12/08/24 10:27 88 18 93 12/08/24 09:10 12/08/24 09:00 133/87 12/08/24 08:57 117 H 24 89 L 12/08/24 08:00 138/75 12/08/24 08:00 87 19 90 12/08/24 08:00 36.7 C 12/08/24 07:37 87 18 97 12/08/24 07:03 85 18 94 12/08/24 07:00 137/77 12/08/24 06:38 94 H 136/84 12/08/24 05:19 120 H 12/08/24 04:16 91 H 16 126/89 91 12/08/24 04:00 126/89 12/08/24 03:59 112 H 17 89 L 12/08/24 03:00 139/74 12/08/24 03:00 86 16 96 12/08/24 02:27 87 18 94 12/08/24 02:13 137/85 12/08/24 02:09 88 17 91 12/08/24 02:00 137/85 12/08/24 01:59 137/73 12/08/24 01:58 94 H 129/95 12/08/24 01:45 102 H 19 92 12/08/24 01:20 36.5 C 129/95 12/08/24 01:05 122 H 22 89 L 12/08/24 01:00 129/95 12/08/24 00:50 98 H 15 89 L 12/08/24 00:08 116 H 16 89 L 12/08/24 00:00 120/85 12/07/24 23:57 118 H 17 92 12/07/24 23:51 121 H 20 88 L O2 Del Method O2 Flow Rate FiO2 12/08/24 10:27 High Flow Nasal Cannula 60 100 12/08/24 09:10 High Flow Nasal Cannula 60 100 12/08/24 09:00 12/08/24 08:57 12/08/24 08:00 12/08/24 08:00 12/08/24 08:00 12/08/24 07:37 High Flow Nasal Cannula 60 100 12/08/24 07:03 12/08/24 07:00 12/08/24 06:38 12/08/24 05:19 12/08/24 04:16 High Flow Nasal Cannula 60 100 12/08/24 04:00 12/08/24 03:59 12/08/24 03:00 12/08/24 03:00 12/08/24 02:27 High Flow Nasal Cannula 60 100 12/08/24 02:13 12/08/24 02:09 12/08/24 02:00 12/08/24 01:59 12/08/24 01:58 12/08/24 01:45 12/08/24 01:20 12/08/24 01:05 12/08/24 01:00 12/08/24 00:50 12/08/24 00:08 12/08/24 00:00 12/07/24 23:57 12/07/24 23:51 High Flow Nasal Cannula 60 100 Laboratory Results CBC, CMP, anti-Xa level, CRP, magnesium, phosphorus reviewed Diagnostic Findings CXR image personally reviewed by me and agree with the following report: Chest X-Ray 12/08/24 08:22 XR chest 1V portable CLINICAL HISTORY: f/u PNA,hypoxia COMPARISON STUDY: 12/07/2024 FINDINGS: Stable CABG. Stable chest port. Stable cardiomegaly with pulmonary vascular congestion. Stable diffuse interstitial and patchy pulmonary opacities. No pleural effusion or pneumothorax seen. IMPRESSION: Stable exam. PG Care Time/CCT Total # of Minutes Spent Total Time Spent with Patient: Total time spent is greater than 50% in coordination of care (as documented) at patient's floor/unit and/or counseling patient: Coding Level of Care Code 51615 SUB INP/OBS CARE 3/50MIN Diagnoses Acute hypoxic respiratory failure J96.01 Bilateral pulmonary embolism I26.99 Atrial fibrillation with rapid ventricular response I48.91 Bilateral pulmonary infiltrates R91.8 Adenocarcinoma of right lung C34.91 Laterality: right (5) Adenocarcinoma of lung Laterality: right Qualified Code(s): C34.91 - Malignant neoplasm of unspecified part of right bronchus or lung
--- NOTE | 2024-12-08 13:27 | Pharmacy Report ---
Pharmacy PK ABX Note - Date of Service December 08, 2024 - Assessment and Plan Assessment 12/08 * Staph haemolyticus isolated from sputum culture is oxacillin resistant. Continue vancomycin * SCr stable * Level today associated with a slightly subtherapeutic AUC over the next 24 ho urs. Will increase dose slightly 12/06 * 79 year old M previously receiving ZOSYN/AZITHROMYCIN/Bactrim for treatment of PNA. Bactrim discontinued today. Vancomycin started for Staph haemolyticus now growing in sputum culture. Patient with history of right lung adenocarcinoma, pulm HTN, emphysema, also with pulmonary emboli. SCr had been on upward trend with initiation of Bactrim-- monitor Plan Vancomycin * Increase vancomycin from 1250 to 1500 mg IV every 24 hours * Regimen is predicted to achieve target AUC/AYAZ of 400-600 mg/L.hr * Repeat random level 9/16 AM Pharmacy will continue to follow and will adjust dose/frequency as necessary. Thank you. Pharmacy has transitioned to AUC monitoring for vancomycin. AUC/AYAZ is the preferred PK/PD target and is associated with decreased risk of nephrotoxicity compared to traditional trough targets.
[2024-12-08] MEDS: FUROSEMIDE 40 MG/4 ML VIAL IV ONE (14:49)
[2024-12-08] MEDS: NYSTATIN SUSP 500,000 U/5 ML UDC PO SCH (14:49)
[2024-12-08] MEDS: VANCOMYCIN HCL 1,500 MG in SODIUM CHLORIDE 0.9% 500 ML IV SCH (21:18)
[2024-12-09 05:34] LABS: Alanine Aminotransferase 35.0 U/L (7-52); Albumin Globulin Ratio 1.3 (0.9-2); Albumin Level 3.3 gm/dl (3.4-5.0); Alkaline Phosphatase 172.0 U/L (34-104); Anion Gap 7.0 (3-11); Bilirubin,Total 1.2 mg/dl (0.2-1.0); Blood Urea Nitrogen 33.0 mg/dl (6-23); Calcium 8.4 mg/dl (8.6-10.3); Carbon Dioxide 31.0 mmol/L (21-32); Chloride 101.0 mmol/L (98-107); Creatinine Clr Calc Pharmacy 54.7 ml/min; Globulin 2.5 gm/dl (2.5-4.0); Glucose 154.0 mg/dl (70-99(Fasting)); Magnesium 2.5 mg/dl (1.7-2.4); Potassium 3.7 mmol/L (3.5-5.1); Sodium 139.0 mmol/L (136-145); Total Protein 5.8 gm/dl (6.0-8.3)
[2024-12-09 05:37] LABS: ANTI-Xa, UFH(UnfractionatedHep 0.48 IU/ml (0.3-0.7)
[2024-12-09 05:39] LABS: Hematocrit (blood only) 28.2 % (42.0-52.0); Hemoglobin 9.0 g/dl (14.0-18.0); Mean Corpuscular Hemoglobin 28.7 pg (25.0-34.0); Mean Corpuscular Volume 89.8 fL (80.0-100.0); Platelet Count 148 K/uL (130-400); RDW Standard Deviation 59.0 fL (36.4-46.3); Red Blood Count 3.14 M/uL (4.70-6.10); White Blood Count 4.95 K/ul (4.8-10.8)
[2024-12-09 05:41] LABS: Immature Granulocytes # (auto) 0.27 K/uL (0.01-0.20); Immature Granulocytes % (auto) 5.5 %
--- NOTE | 2024-12-09 07:56 | XRay Report ---
EXAM: XR chest 1V portable CLINICAL HISTORY: Follow-up pneumonia TECHNIQUE: An X-ray image of the chest was obtained in the AP projection. COMPARISON: 12-07-2024 CR. FINDINGS: Pulmonary Parenchyma: There is mild interval improvement in air space opacities and unchanged reticular shadowing in the left mid and lower zones. There are unchanged air space opacities and reticular shadowing in the right mid and lower zones. There is a new finding of blunting of the right CP angle, likely representing mild pleural effusion versus thickening. There is no evidence of left pleural effusion or pleural thickening. Heart and Mediastinum: Cardiomegaly is seen. There is no mediastinal widening or masses. There is no hilar or mediastinal lymphadenopathy. Bony Thorax: Sternotomy sutures are noted. The bony thorax appears intact without fractures or deformities. Soft Tissues: Soft tissues overlying the chest wall are unremarkable. IMPRESSION: 1. There is mild interval improvement in air space opacities and unchanged reticular shadowing in the left mid and lower zones. 2. There are unchanged air space opacities and reticular shadowing in the right mid and lower zones. 3. There is a new finding of blunting of the right CP angle, likely representing mild pleural effusion versus thickening. 4. Cardiomegaly is stable. Electronically signed by Yair Acevedo 12-09-2024 07:56 AM
--- NOTE | 2024-12-09 09:08 | Palliative Care Progress Note ---
Date of Service December 10, 2024 Assessment & Plan Admission and Anticipated Discharge Date Admission Date: November 29, 2024 Results & Data Vital Signs (Past 12 Hours) Vital Signs Temp Pulse Pulse Resp BP BP Pulse Ox 12/09/24 08:35 83 18 94 12/09/24 08:20 88 L 12/09/24 08:15 88 83 L 12/09/24 07:27 36.5 C 83 18 149/78 H 91 12/09/24 07:25 149/78 H 12/09/24 07:24 76 18 92 12/09/24 07:14 77 18 94 12/09/24 07:00 79 17 93 12/09/24 05:57 74 12/09/24 05:37 149/72 H 12/09/24 05:37 149/72 H 12/09/24 05:37 149/72 H 12/09/24 05:33 92 H 20 92 12/09/24 05:09 80 16 94 12/09/24 04:00 125/72 12/09/24 04:00 80 16 93 12/09/24 03:33 80 20 100 12/09/24 03:00 147/82 H 12/09/24 03:00 78 16 99 12/09/24 02:21 77 15 99 12/09/24 02:00 139/81 12/09/24 02:00 139/81 12/09/24 01:36 80 15 96 12/09/24 01:22 85 140/90 12/09/24 01:21 140/90 12/09/24 01:15 83 16 92 12/09/24 01:05 86 126/62 12/09/24 01:03 85 15 97 12/09/24 01:00 126/62 12/09/24 01:00 126/62 12/09/24 00:36 85 17 98 12/09/24 00:03 86 18 98 12/09/24 00:00 142/70 H 12/09/24 00:00 142/70 H 12/08/24 23:27 85 18 97 12/08/24 23:00 136/83 12/08/24 23:00 136/83 12/08/24 23:00 87 21 98 12/08/24 22:34 112 H 16 98 12/08/24 22:00 131/82 12/08/24 22:00 131/82 12/08/24 22:00 131/82 12/08/24 22:00 89 16 96 O2 Del Method O2 Flow Rate FiO2 12/09/24 08:35 High Flow Nasal Cannula 50 100 12/09/24 08:20 High Flow Nasal Cannula 50 100 12/09/24 08:15 High Flow Nasal Cannula 40 90 12/09/24 07:27 High Flow Nasal Cannula 40 90 12/09/24 07:25 12/09/24 07:24 40 90 12/09/24 07:14 High Flow Nasal Cannula 40 90 12/09/24 07:00 High Flow Nasal Cannula 40 100 12/09/24 05:57 12/09/24 05:37 12/09/24 05:37 12/09/24 05:37 12/09/24 05:33 12/09/24 05:09 12/09/24 04:00 12/09/24 04:00 12/09/24 03:33 High Flow Nasal Cannula 40 80 12/09/24 03:00 12/09/24 03:00 12/09/24 02:21 12/09/24 02:00 12/09/24 02:00 12/09/24 01:36 12/09/24 01:22 12/09/24 01:21 12/09/24 01:15 12/09/24 01:05 12/09/24 01:03 12/09/24 01:00 12/09/24 01:00 12/09/24 00:36 12/09/24 00:03 12/09/24 00:00 12/09/24 00:00 12/08/24 23:27 12/08/24 23:00 12/08/24 23:00 12/08/24 23:00 12/08/24 22:34 High Flow Nasal Cannula 40 100 12/08/24 22:00 12/08/24 22:00 12/08/24 22:00 12/08/24 22:00 PG Care Time/CCT Total # of Minutes Spent Total Time Spent with Patient: Total time spent is greater than 50% in coordination of care (as documented) at patient's floor/unit and/or counseling patient: Coding
--- NOTE | 2024-12-09 09:33 | Pulmonology Progress Note ---
Date of Service December 09, 2024 Assessment & Plan (1) Acute hypoxic respiratory failure: (2) Adenocarcinoma of lung: Laterality: right Qualified Code(s): C34.91 - Malignant neoplasm of unspecified part of right bronchus or lung (3) Bilateral pulmonary embolism: Plan Patient is an 79-year-old male with a history of right lung adenocarcinoma, coronary artery disease, CAD, pulmonary hypertension, emphysema, hypothyroidism, GERD, hypertension, esophageal varices, TMJ and vitamin D deficiency. The patient follows with Dr. Mcbride in the pulmonary clinic. Was being treated outpatient with chemotherapy in September and received radiation treatment in October. The patient presented to the hospital 11/30/2024 with shortness of breath and lower extremity edema. Imaging on arrival showed bilateral lower lobe subsegmental pulmonary emboli and increasing GGO's in bilateral lung christianson. The patient was started on anticoagulation. He continued to have worsening respiratory failure with hypoxia for which pulmonary was consulted. Echocardiogram did not show evidence of RV strain with the PE. He was started on antibiotics to cover for community-acquired pneumonia and started on Bactrim and IV steroids. The patient continued to be hypoxic and required maximum Optiflow of 60 L and 100%. Steroids were continued and the dose was increased. Antibiotics were broadened to Zosyn and vancomycin. Lasix were added and the patient was aggressively diuresed. The patient had hyponatremia after Bactrim therefore this was discontinued. Urine Legionella was negative therefore atypical coverage with azithromycin was stopped. Sputum culture grew Staphylococcus hemolyticus sensitive to vancomycin and linezolid. Problem list: Acute hypoxic respiratory failure Likely radiation pneumonitis versus chemo pneumonitis Bilateral subsegmental PE Staph hemolyticus pneumonia Right lung adenocarcinoma Underlying emphysema Underlying pulmonary hypertension Assessment: Hypoxia is likely multifactorial in the setting of subsegmental PE, GGO's which likely represent a pneumonitis picture and pneumonia with Staphylococcus haemolyticus. The patient has been on anticoagulation since admission, echocardiogram did not show evidence of RV strain. I do not believe that the PEs are a large contributor to his hypoxia at this time. The patient has been covered for his Staphylococcus haemolyticus pneumonia with vancomycin. Slight improvement in his oxygenation. The patient's imaging on presentation showed diffuse GGO's concerning for a pneumonitis picture. He had received both chemotherapy and radiation therapy in the past few months. He has been on steroids for 1 week now, has not had a very robust response however. I believe that his hypoxia is most likely secondary to pneumonitis likely secondary to radiation with superimposed bacterial pneumonia as well. Recommendations/plan: Continue Optiflow. Wean for saturation of 88 to 92%. Desaturates very easily with any sort of movement. Patient has been on high-dose steroids with methylprednisolone, steroids were initiated on 12/03/2024. . The patient will need PJP prophylaxis. Can be started on atovaquone as he did not tolerate Bactrim as he had acute hyponatremia with that. I have asked that oncology be consulted to weigh in on the likelihood of radiation or chemotherapy induced pneumonitis and possible adjunctive therapy as he has not had a robust response to the steroids. I spoke with oncology directly. Dr. Mosquera has seen this patient before. He has not received any chemotherapy in the last 6 weeks so he does not think that this is related to chemo but agrees that it may be related to the radiation therapy. Oncology is recommending a dose of tocilizumab (8 mg/kg) to help with the inflammatory response given the extent of hypoxia in the setting of radiation pneumonitis. Patient should remain on GI prophylaxis while on steroids. Patient is being diuresed daily. Continue to diurese to maintain euvolemia. Currently on vancomycin and Zosyn, can de-escalate to vancomycin only or transition to linezolid per sensitivities. Can consider repeat imaging of the chest with CT. Patient still remains critically ill with a generally poor prognosis. Discussed extensively with bedside RN. Case discussed at length with hospitalist service and oncologist. Thank you for this consultation, I will continue to follow along with you. Admission and Anticipated Discharge Date Admission Date: November 29, 2024 Subjective Patient seen and examined this morning. The patient appears comfortable this morning. Slightly tachypneic. Currently on 45 L and 100% via Optiflow. Saturation is 92%. Nursing staff states that this morning he was trying to get adjusted in bed and he became profoundly hypoxic during just simple movement. Prior to that he had been on 40 L and 90%. The patient says that he feels about the same. Not having much phlegm production at all. No change in his breathing. No family is at bedside this morning. Review of Systems Review of Systems: Denies fevers, chills or night sweats. Denies abdominal pain, appetite is good. Endorses generalized weakness. Endorses shortness of breath and difficulty breathing. Denies sputum production. Denies lower extremity edema. Physical Exam Physical Exam: Physical examination: General: W ill-appearing, frail, resting in bed, not in acute distress. HEENT: Normocephalic, atraumatic. Extraocular movements intact. Sclera are nonicteric. No JVD appreciated. Skin: Warm and dry. No rashes appreciated. No jaundice appreciated. Cardiovascular: Heart is a regular rate and rhythm, no murmurs appreciated on my exam. No significant lower extremity edema. Lungs: Coarse breath sounds, Rales appreciated at bilateral bases. Mildly tachypneic. On Optiflow 45 L and 100% satting 92%. Abdomen: Nondistended, nontender to palpation. Musculoskeletal: Normal muscle mass and tone. No gross joint deformity abnormalities. No effusions appreciated. Neurologic: Awake and alert, oriented. CN II through XII are grossly intact. Speech is fluent. Nonfocal exam. Hard of hearing. Psychiatric: Appropriate cooperative during my exam. Results & Data Results & Data Vital Signs (Past 12 Hours) Vital Signs Temp Pulse Pulse Resp BP BP Pulse Ox 12/09/24 08:35 83 18 94 12/09/24 08:20 88 L 12/09/24 08:15 88 83 L 12/09/24 07:27 36.5 C 83 18 149/78 H 91 12/09/24 07:25 149/78 H 12/09/24 07:24 76 18 92 12/09/24 07:14 77 18 94 12/09/24 07:00 79 17 93 12/09/24 05:57 74 12/09/24 05:37 149/72 H 12/09/24 05:37 149/72 H 12/09/24 05:37 149/72 H 12/09/24 05:33 92 H 20 92 12/09/24 05:09 80 16 94 12/09/24 04:00 125/72 12/09/24 04:00 80 16 93 12/09/24 03:33 80 20 100 12/09/24 03:00 147/82 H 12/09/24 03:00 78 16 99 12/09/24 02:21 77 15 99 12/09/24 02:00 139/81 12/09/24 02:00 139/81 12/09/24 01:36 80 15 96 12/09/24 01:22 85 140/90 12/09/24 01:21 140/90 12/09/24 01:15 83 16 92 12/09/24 01:05 86 126/62 12/09/24 01:03 85 15 97 12/09/24 01:00 126/62 12/09/24 01:00 126/62 12/09/24 00:36 85 17 98 12/09/24 00:03 86 18 98 12/09/24 00:00 142/70 H 12/09/24 00:00 142/70 H 12/08/24 23:27 85 18 97 12/08/24 23:00 136/83 12/08/24 23:00 136/83 12/08/24 23:00 87 21 98 12/08/24 22:34 112 H 16 98 12/08/24 22:00 131/82 12/08/24 22:00 131/82 12/08/24 22:00 131/82 12/08/24 22:00 89 16 96 O2 Del Method O2 Flow Rate FiO2 12/09/24 08:35 High Flow Nasal Cannula 50 100 12/09/24 08:20 High Flow Nasal Cannula 50 100 12/09/24 08:15 High Flow Nasal Cannula 40 90 12/09/24 07:27 High Flow Nasal Cannula 40 90 12/09/24 07:25 12/09/24 07:24 40 90 12/09/24 07:14 High Flow Nasal Cannula 40 90 12/09/24 07:00 High Flow Nasal Cannula 40 100 12/09/24 05:57 12/09/24 05:37 12/09/24 05:37 12/09/24 05:37 12/09/24 05:33 12/09/24 05:09 12/09/24 04:00 12/09/24 04:00 12/09/24 03:33 High Flow Nasal Cannula 40 80 12/09/24 03:00 12/09/24 03:00 12/09/24 02:21 12/09/24 02:00 12/09/24 02:00 12/09/24 01:36 12/09/24 01:22 12/09/24 01:21 12/09/24 01:15 12/09/24 01:05 12/09/24 01:03 12/09/24 01:00 12/09/24 01:00 12/09/24 00:36 12/09/24 00:03 12/09/24 00:00 12/09/24 00:00 12/08/24 23:27 12/08/24 23:00 12/08/24 23:00 12/08/24 23:00 12/08/24 22:34 High Flow Nasal Cannula 40 100 12/08/24 22:00 12/08/24 22:00 12/08/24 22:00 12/08/24 22:00 PG Care Time/CCT Total # of Minutes Spent Total Time Spent with Patient: Total time spent is greater than 50% in coordination of care (as documented) at patient's floor/unit and/or counseling patient: Coding [place] [address] SUB INP/OBS CARE 3/50MIN Patient Type Established Medical Decision Making High Complexity Diagnoses Acute hypoxic respiratory failure J96.01 Adenocarcinoma of right lung C34.91 Laterality: right Bilateral pulmonary embolism I26.99
--- NOTE | 2024-12-09 12:49 | Hospitalist Progress Note ---
Date of Service December 09, 2024 Assessment & Plan (1) Acute hypoxic respiratory failure: (2) Bilateral pulmonary embolism: (3) Atrial fibrillation with rapid ventricular response: (4) Bilateral pulmonary infiltrates: (5) Adenocarcinoma of lung: Plan This patient is an 79yo male with lung cancer with metastatic disease to mediastinal lymph nodes, CAD s/p 2V CABG, porcine MVR, and maze procedure in March 2024, paroxysmal atrial fibrillation, COPD, HTN, HLD, hypothyroidism, GERD, presenting with two weeks of progressive SOB and LE edema. Patient hypoxic to 88% on room air on arrival. Not on O2 at home. Patient found with bilateral pulmonary emboli and has since developed profound respiratory failure and multifocal pneumonia and likely radiation pneumonitis #Acute hypoxic respiratory failure/Staphylococcus haemolyticus PNA - multifactorial - underlying lung cancer, pulmonary emboli, pulmonary edema/acute on chronic HFpEF, Staphylococcus hemolyticus pneumonia, possible radiation pneumonitis, COPD, and rapid Afib all contributing. Viral biofire panel is NEGATIVE on 11/29 and COVID/flu/RSV negative again on 12/05. Legionella antigen negative. He significantly decompensated several days into his admission and was on HFNC max settings with O2 oxygen mask 15 L on top of that for [place] days. He is being diuresed with IV lasix, is on high dose IV steroids, as well as broad-spectrum antibiotics. Appreciate PULM consult-too high risk for bronchoscopy now and with low yield. Sputum culture positive for Staphylococcus hemolyticus which was resistant to penicillin and Bactrim. Beta D glucan negative making PJP less likely. CRP trending down from 12 to 2 CXR 12/07 with diffuse infiltrates but slightly improved from previous Slowly starting to improve as of 12/09-now down to HFNC 40 L 90% FiO2 and no additional oxygen mask on top of that -Advance diet to easy to chew as he is now off the oxygen mask -continue high dose steroids for possible radiation pneumonitis and continue to taper down-now on 80 mg IV every 6 hours - Pulmonology trying to get approved tocilizumab for potassium sparing agent for overwhelming inflammation of the lungs -continue IV vancomycin, pharmacy dosing-complete 7-day dose on 12/14 - Completed a course of azithromycin and can now discontinue the send for pneumonia -bactrim initially added for PJP coverage has now been discontinued-he will not need prophylaxis for PJP with being on high-dose steroids-pulmonology considering adding atovaquone-defer to pulmonology to order this -continue supplemental O2 and wean as able -continue pulm toilet, nebs-ICS and LABA -f/u PJP sputum when available - For severe respiratory distress and anxiety, continue as needed IV morphine and as needed IV lorazepam - Appreciate palliative medicine consultation-patient reaffirms he does not want intubation or resuscitation -Follow CBC, CMP, magnesium, CXR - Give Lasix 40 mg IV x 1 and dose daily as needed #Atrial fibrillation with rapid ventricular rate/nonsustained ventricular tachycardia- went into rapid A-fib on AM of 12/04. Has a history of afib and underwent Maze procedure with his CABG and MVR in 03/2024. Received bolus of IV dilt and soft BPs improved, dilt gtt was continued at 5 mg/hr, BPs remained soft. Recent ECHO with normal EF. Spontaneously converted to NSR on 12/06 with improvement in BPs. TSH normal. Appreciate cardiology consultation - Tolerating p.o. now-change metoprolol 5 mg IV every 6 hours scheduled back to p.o. metoprolol succinate 25 mg daily -Considered amiodarone for nonsustained VT and A-fib, but patient declines for now due to previous side effects on such -Continue to monitor on tele -continue on heparin gtt with plan to convert to Eliquis for PEs once more stable -follow BMP, mag and keep lytes replete-give IV potassium 40 mEq #Bilateral subsegmental pulmonary emboli - in setting of malignancy -Continue heparin gtt -monitor CBC given thrombocytopenia which is now resolved -Plan to DC on Apixaban #Hyponatremia-sodium down to 127 acutely likely from Bactrim-now hyponatremia resolved with stopping Bactrim and giving diuretics - Follow BMP #Adenocarcinoma of the lung - IIIb. patient is s/p chemotherapy and XRT. Is planning to start immunotherapy in December. - Consult his oncologist #antineoplastic chemotherapy induced pancytopenia-pancytopenia noted on bloodwork-WBC count and platelets improving, hemoglobin drifted down to 7.2 and with significant hypoxemia. B12, folate, iron studies acceptable-ferritin quite elevated due to profound inflammation. TSH normal. He was transfused 1 unit PRBCs on 12/07 with improvement in Hgb to 9.0. Platelets are now improved -follow CBC in AM #CAD - patient s/p CABG x 2V performed in March 2024 as well as mitral valve replacement with porcine valve and maze procedure -Echo 12/02 reassuring -Continue ASA, atorvastatin, Metoprolol #Hypertension - blood pressure acceptable -Continue Metoprolol #Hyperlipidemia -Continue Atorvastatin #Hypothyroidism-TSH here normal -Continue Synthroid and change IV back to p.o. now that he is tolerating p.o. #Emphysema -Continue nebs #GERD -Continue Protonix IV while on high-dose steroids DVT ppx -continues on on heparin drip for PEs, follow anti-Xa levels Dispo-continued stay PCU/ICU overflow, guarded prognosis, appreciate palliative medicine consultation. Discussed care again at length with on 12/09 Admission and Anticipated Discharge Date Admission Date: November 29, 2024 Subjective Patient is weaned to high flow nasal cannula 90% FiO2 and 40 L at the time I saw him with no further additional oxygen mask on top of that (previously on 12-15 L oxygen mask on top of high flow nasal cannula). He is tolerating full liquids diet well. He is coughing up dark yellow sputum and fairly large amounts. No further hemoptysis. I discussed his care with pulmonology and pharmacy-he will be hopefully starting on tocilizumab Telemetry with normal sinus rhythm and normal rates, no further atrial fibrillation Physical Exam Constitutional: no acute distress Eyes: + anicteric sclerae Respiratory: able to speak in complete sentences; no labored breathing Auscultation: + crackles (bilat lower and middle lung christianson); no rhonchi and no wheezes Cardiovascular: Rate/Rhythm: regular rate and regular rhythm Heart Sounds: no murmur Extremities: no edema Gastrointestinal (Abdomen): normal bowel sounds, soft, nontender, no hepatosplenomegaly Psychiatric: Orientation: alert, oriented x 3 and cooperative Results & Data Results & Data Vital Signs (Past 12 Hours) Vital Signs Temp Pulse Pulse Resp BP BP Pulse Ox 12/09/24 12:00 92 H 24 95 12/09/24 08:35 83 18 94 12/09/24 08:20 88 L 12/09/24 08:15 88 83 L 12/09/24 07:27 36.5 C 83 18 149/78 H 91 12/09/24 07:25 149/78 H 12/09/24 07:24 76 18 92 12/09/24 07:14 77 18 94 12/09/24 07:00 79 17 93 12/09/24 05:57 74 12/09/24 05:37 149/72 H 12/09/24 05:37 149/72 H 12/09/24 05:37 149/72 H 12/09/24 05:33 92 H 20 92 12/09/24 05:09 80 16 94 12/09/24 04:00 125/72 12/09/24 04:00 80 16 93 12/09/24 03:33 80 20 100 12/09/24 03:00 147/82 H 12/09/24 03:00 78 16 99 12/09/24 02:21 77 15 99 12/09/24 02:00 139/81 12/09/24 02:00 139/81 12/09/24 01:36 80 15 96 12/09/24 01:22 85 140/90 12/09/24 01:21 140/90 12/09/24 01:15 83 16 92 12/09/24 01:05 86 126/62 12/09/24 01:03 85 15 97 12/09/24 01:00 126/62 12/09/24 01:00 126/62 O2 Del Method O2 Flow Rate FiO2 12/09/24 12:00 High Flow Nasal Cannula 60 100 12/09/24 08:35 High Flow Nasal Cannula 50 100 12/09/24 08:20 High Flow Nasal Cannula 50 100 12/09/24 08:15 High Flow Nasal Cannula 40 90 12/09/24 07:27 High Flow Nasal Cannula 40 90 12/09/24 07:25 12/09/24 07:24 40 90 12/09/24 07:14 High Flow Nasal Cannula 40 90 12/09/24 07:00 High Flow Nasal Cannula 40 100 12/09/24 05:57 12/09/24 05:37 12/09/24 05:37 12/09/24 05:37 12/09/24 05:33 12/09/24 05:09 12/09/24 04:00 12/09/24 04:00 12/09/24 03:33 High Flow Nasal Cannula 40 80 12/09/24 03:00 12/09/24 03:00 12/09/24 02:21 12/09/24 02:00 12/09/24 02:00 12/09/24 01:36 12/09/24 01:22 12/09/24 01:21 12/09/24 01:15 12/09/24 01:05 12/09/24 01:03 12/09/24 01:00 12/09/24 01:00 Laboratory Results CBC, CMP, magnesium, phosphorus, anti-Xa level reviewed Diagnostic Findings Chest x-ray image personally reviewed by me and agree with the following report: Chest X-Ray 12/09/24 07:00 EXAM: XR chest 1V portable CLINICAL HISTORY: Follow-up pneumonia TECHNIQUE: An X-ray image of the chest was obtained in the AP projection. COMPARISON: 12-07-2024 CR. FINDINGS: Pulmonary Parenchyma: There is mild interval improvement in air space opacities and unchanged reticular shadowing in the left mid and lower zones. There are unchanged air space opacities and reticular shadowing in the right mid and lower zones. There is a new finding of blunting of the right CP angle, likely representing mild pleural effusion versus thickening. There is no evidence of left pleural effusion or pleural thickening. Heart and Mediastinum: Cardiomegaly is seen. There is no mediastinal widening or masses. There is no hilar or mediastinal lymphadenopathy. Bony Thorax: Sternotomy sutures are noted. The bony thorax appears intact without fractures or deformities. Soft Tissues: Soft tissues overlying the chest wall are unremarkable. IMPRESSION: 1. There is mild interval improvement in air space opacities and unchanged reticular shadowing in the left mid and lower zones. 2. There are unchanged air space opacities and reticular shadowing in the right mid and lower zones. 3. There is a new finding of blunting of the right CP angle, likely representing mild pleural effusion versus thickening. 4. Cardiomegaly is stable. Electronically signed by Yair Acevedo 12-09-2024 07:56 AM PG Care Time/CCT Total # of Minutes Spent Total Time Spent with Patient: Total time spent is greater than 50% in coordination of care (as documented) at patient's floor/unit and/or counseling patient: Coding Level of Care Code 13283 SUB INP/OBS CARE 3/50MIN Diagnoses Acute hypoxic respiratory failure J96.01 Bilateral pulmonary embolism I26.99 Atrial fibrillation with rapid ventricular response I48.91 Bilateral pulmonary infiltrates R91.8 Adenocarcinoma of right lung C34.91 Laterality: right (5) Adenocarcinoma of lung Laterality: right Qualified Code(s): C34.91 - Malignant neoplasm of unspecified part of right bronchus or lung
--- NOTE | 2024-12-09 13:06 | Oncology Consultation ---
Date of Consultation December 09, 2024 Assessment & Plan (1) Adenocarcinoma of lung: Hold all cancer treatment, the patient has been off therapy in the medical oncology clinic from September 2024. He was due to start with immunotherapy, however the patient never got immunotherapy. At this point we will hold off given that he may be dealing with pneumonitis. (2) Acute hypoxic respiratory failure: Continue management per pulmonary and critical care colleagues. (3) Pneumonitis: The patient is already on dexamethasone for immunosuppression. Considering use of tocilizumab given the inflammatory nature of the pneumonitis and the fact that this may be related to radiation versus just may be an inflammatory response to the treatments he has received till now. There may also be underlying viral pneumonitis which would be causing this picture in the lungs. Keeping this in mind consider tocilizumab for immunosuppression. Plan Thank you for this interesting oncological consult. A total of 60 minutes was spent in counseling, coronation care, review of prior records. Medical oncology will continue to follow the patient make appropriate recommendations. History of Present Illness Reason for Consultation: Non small Cell Lung Cancer Pneumonitis Attending Physician: Mary Lou Lake MD History of Present Illness Diagnosis: Adenocarcinoma of the right lung Date of diagnosis: 08/13/2024 Stage: T4, multifocal, N1, M0 PET CT scan: 09/12/2024: IMPRESSION: 1. Increased uptake at the right lower lobe nodules suspicious for malignancy. Increased uptake at mediastinal and hilar lymph nodes suspicious for metastatic disease. 2. No other suspicious uptake seen. CT chest, 07/26/2024: IMPRESSION: 1 . Redemonstration of spiculated mass with surrounding nodularity seen in right lower lobe becomes more conspicuous with interval stable mediastinal and right hilar lymphadenopathy. Findings are suspicious for neoplastic mass lesion. Needs clinical and lab correlation and further evaluation with histopathology if indicated. 2 . Previously seen mild bilateral pleural effusion is resolved. 3 . Redemonstration of moderate size hiatal hernia. 4 . Redemonstration of cholelithiasis without signs of acute cholecystitis. Bronchoscopy, 08/13/2024: Needle biopsy: Right lower lobe superior nodule was biopsied Transbronchial biopsy: Right lower lobe superior nodule as well as right lower lobe mass was biopsied. Mass was positive for malignancy. Van Gogh also showed positivity on the right lower lobe Minimal hemorrhage was identified and suctioned clear without difficulty. Robotic navigational bronchoscopy was discontinued and EBUS was introduced Station 10L, station 7, station 4R, station 10R were visualized Station 10L: 4 passes, multiple sweeps, adequate Station 7: 3 passes, multiple sweeps, adequate Station 4R: 1 passes with multiple sweeps, inadequate Station 10R: 5 passes with multiple sweeps, adequate. [place] blake showed suspicious cells Station 4R was difficult to biopsy because of the angle as well as cartridge at different affect. Pathology, 08/13/2024: Clinical History 1.2 cm and 3.5 cm lung nodules. Smoker. Procedure performed: Forceps biopsies. FINAL DIAGNOSIS A. Lung, right lower lobe, target #1, forceps biopsy: - Benign bronchoalveolar tissue. B. Lung, right lower lobe, target #2, forceps biopsy: - Malignant cells present consistent with non-small cell carcinoma, favor adenocarcinoma. - See microscopic description. at 1648. FINAL DIAGNOSIS Lung, right lower lobe, target #1 (1.2 cm), aspiration: - Blood and very rare atypical cells. - See comment. Comment: The vast majority of the specimen consists of blood. There are very rare atypical cells present and reactive respiratory epithelium is favored. at 1428. Treatment: Carboplatin + Paclitaxel + RT; cycle 1 day 1: 10/08/2024 Carboplatin + Paclitaxel + RT; cycle 2 day 1: 10/15/2024 Carboplatin + Paclitaxel + RT; cycle 3 day 1: 10/22/2024 CTA Chest; 11/29/2024: Impression: 1. Bilateral lower lobe pulmonary embolism 2. Interval increase in size of multifocal nodular opacities in the right lower lobe. This could be inflammatory, though bronchogenic carcinoma is also possible. Close interval follow-up CT could be obtained or PET scan could be considered 3. Interval worsening of multifocal groundglass infiltrates, which may be due to viral pneumonitis 4. Emphysema 5. Mild mediastinal and bilateral hilar adenopathy 6. Small right pleural effusion 7. Small hiatal hernia 8. Cholelithiasis ACT 112: Positive. There are findings on this exam that require communication between the performing entity and the patient following Patient Test Result Information Act ([place] ACT 112) guidelines. The patient is a very pleasant 79-year-old man with a history of non-small cell lung cancer who was treated with chemotherapy plus radiation. Chemotherapy stopped in September because of significant cytopenias. However he continued radiation. He comes to the hospital with difficulty breathing, with possible pneumonitis as well as pulmonary embolism. Medical oncology is consulted to assist in management of this patient with cancer therapy related complications. Allergies Allergy/AdvReac Type Severity Reaction Status Date / Time atenolol AdvReac Mild Diarrhea Verified 11/11/24 09:29 Home Medications Medication Instructions Recorded Confirmed Type calcium polycarbophil 625 mg 625 mg PO BID 11/13/19 11/29/24 History tablet (Fiber-Tabs) ferrous sulfate 325 mg (65 mg 325 mg PO QPM 11/13/19 11/29/24 History iron) tablet (iron) multivitamin 1 tab PO QAM 03/31/22 11/29/24 History latanoprost 0.005 % eye drops 1 drp OPR HS 01/11/24 11/29/24 History atorvastatin 40 mg tablet 40 mg PO HS #90 tabs 03/11/24 11/29/24 Rx esomeprazole magnesium 20 mg 20 mg PO QPM #90 caps 05/14/24 11/29/24 Rx capsule,delayed release (Nexium 24HR) amoxicillin 500 mg capsule 2,000 mg (4 x 500 mg) PO .COMPLEX 05/15/24 11/29/24 Rx #4 caps tamsulosin 0.4 mg capsule 0.8 mg (2 x 0.4 mg) PO QPM 07/01/24 11/29/24 Rx frequency #180 caps aspirin 81 mg tablet,delayed 81 mg PO QAM 08/02/24 11/29/24 History release tiotropium bromide 2.5 2 puff inhalation DAILY #4 grams 10/01/24 11/29/24 Rx mcg/actuation mist for inhalation (Spiriva Respimat) mirabegron 50 mg tablet,extended 50 mg PO QPM #90 tabs 10/25/24 11/29/24 Rx release 24 hr (Myrbetriq) metoprolol succinate 25 mg 25 mg PO QAM #90 tabs 11/07/24 11/29/24 Rx tablet,extended release 24 hr levothyroxine 50 mcg tablet 50 mcg PO QAM #90 tabs 11/19/24 11/29/24 Rx Patient History Medical History Adenocarcinoma of lung dx 07/2024 Mitral valve disease CABG x2 + MVR (04/09/24), C CAD (coronary artery disease) CABG x2 + MVR (04/09/24), [facility] [place] Hx of esophageal varices Hx of pulmonary hypertension History of hypothyroidism Hx of hyperlipidemia History of hypertension History of prostate cancer Dx 2021 S/P brachytherapy, XRT Hx of gastroesophageal reflux (GERD) Hx of emphysema Lung mass Noted on CTS "Reason for upcoming bronchoscopy" Rectal bleeding hx, no current issues Cervical arthritis limited ROM per patient History of iron deficiency anemia hx of transfusions within the year (03/2024) Premature ventricular contractions Follows with [facility] cardio Raynaud's disease TMJ (temporomandibular joint disorder) No issues since surgical intervention Surgical History Port-A-Cath in place (09/26/24) Insertion of Magnetic Resonance Imaging Compatible Access Port- Left Subclavian Vein(Left) - Sampson Durham MD, FACS MRI clip placed in left subclavian performed utilizing fluoroscopy throughout the procedure Dr. Durham History of bronchoscopy 07/2024, robotic navigational bronchoscopy with endobronchial US, [facility] History of mitral valve replacement CABG x2 + MVR (04/09/24), [facility] [place] Hx of brachytherapy 07/14/22 [facility] Hx of cardiac cath 03/11/24, [facility], no stents Hx of CABG CABG x2 + MVR (04/09/24), [facility] [place] History of esophagogastroduodenoscopy (EGD) History of cataract surgery R/L History of colonoscopy History of surgery for TMJ H/O hernia repair Family History Uncle Ruptured thoracic aortic aneurysm Other Hypertension No family history of adverse response to anesthesia Denies family history of Ovarian cancer Prostate cancer Myocardial infarction Breast cancer Colorectal cancer Social History (Reviewed 11/30/24 @ 01:12 by NIA Shell Smoking Status: Former smoker Tobacco Type: Cigarettes Age Started Using Tobacco: 14; Age Quit Using Tobacco: 38; packs per day: 0; Second Hand Exposure: No; Do You Dip or Chew Tobacco: No; Tobacco Cessation Education Requested by Patient: No Hx Alcohol Use: No Hx Substance Use: No Preferred Language: [place] Communication Ability: Effective Visual Impairment: Limited Hearing Ability: Use of Hearing Aid Coremaker Required: No Beliefs That Will Affect Care: None marital status: Current Living Situation: Spouse Current Living Situation Comment: current occupational status: retired current occupation: Retired How many Children do You have: 4 Other Information That Helps Us Care for You: No Feels Safe at Home: Yes Safety Concerns: Feels Safe At This Time Childhood Exposure to Second-Hand Smoke: Yes Diet: regular caffeine: Yes during the past year weight has: remained stable Dental Care, Regularly: Yes Physical Activity Frequency: Daily Seatbelt Use: always Sunscreen Use: Yes Do you think of yourself as: straight/heterosexual Sexual Activity: has been sexually active, but not for at least 12 months Gender Identity: Male Assistive Devices: None Review of Systems Review of Systems: Short of breath, weak, fatigued. Constitutional: as per Subjective / HPI Eyes: as per Subjective / HPI Ear, Nose, Mouth, Throat: as per Subjective / HPI Respiratory: as per Subjective / HPI Cardiovascular: as per Subjective / HPI Gastrointestinal: as per Subjective / HPI Genitourinary: + as per Subjective / HPI Musculoskeletal: as per Subjective / HPI Integumentary: as per Subjective / HPI Neurologic: as per Subjective / HPI Psychiatric: as per Subjective / HPI Endocrine: as per Subjective / HPI Hematologic / Lymphatic: as per Subjective / HPI Allergy / Immunological: as per Subjective / HPI Physical Exam Constitutional: WD/WN, vitals as above Eyes: PERRL, conjunctivae normal, anicteric sclerae ENMT: external ear and nose normal, oropharynx normal Neck: trachea midline, no thyromegaly Respiratory: normal respiratory effort, lungs clear to auscultation Cardiovascular: RRR, no murmur, no edema Gastrointestinal (Abdomen): normal bowel sounds, soft, nontender, no hepatosplenomegaly Musculoskeletal: no cyanosis or clubbing, extremities motor strength 5/5 Skin: no rashes, warm and dry Neurologic: patellar DTR's 2+ bilat, sensation intact Psychiatric: A+Ox3, euthymic affect Results & Data Vital Signs (Past 12 Hours) Vital Signs Temp Pulse Pulse Resp BP BP Pulse Ox 12/09/24 12:00 92 H 24 95 12/09/24 08:35 83 18 94 12/09/24 08:20 88 L 12/09/24 08:15 88 83 L 12/09/24 07:27 36.5 C 83 18 149/78 H 91 12/09/24 07:25 149/78 H 12/09/24 07:24 76 18 92 12/09/24 07:14 77 18 94 12/09/24 07:00 79 17 93 12/09/24 05:57 74 12/09/24 05:37 149/72 H 12/09/24 05:37 149/72 H 12/09/24 05:37 149/72 H 12/09/24 05:33 92 H 20 92 12/09/24 05:09 80 16 94 12/09/24 04:00 125/72 12/09/24 04:00 80 16 93 12/09/24 03:33 80 20 100 12/09/24 03:00 147/82 H 12/09/24 03:00 78 16 99 12/09/24 02:21 77 15 99 12/09/24 02:00 139/81 12/09/24 02:00 139/81 12/09/24 01:36 80 15 96 12/09/24 01:22 85 140/90 12/09/24 01:21 140/90 12/09/24 01:15 83 16 92 12/09/24 01:05 86 126/62 12/09/24 01:03 85 15 97 O2 Del Method O2 Flow Rate FiO2 12/09/24 12:00 High Flow Nasal Cannula 60 100 12/09/24 08:35 High Flow Nasal Cannula 50 100 12/09/24 08:20 High Flow Nasal Cannula 50 100 12/09/24 08:15 High Flow Nasal Cannula 40 90 12/09/24 07:27 High Flow Nasal Cannula 40 90 12/09/24 07:25 12/09/24 07:24 40 90 12/09/24 07:14 High Flow Nasal Cannula 40 90 12/09/24 07:00 High Flow Nasal Cannula 40 100 12/09/24 05:57 12/09/24 05:37 12/09/24 05:37 12/09/24 05:37 12/09/24 05:33 12/09/24 05:09 12/09/24 04:00 12/09/24 04:00 12/09/24 03:33 High Flow Nasal Cannula 40 80 12/09/24 03:00 12/09/24 03:00 12/09/24 02:21 12/09/24 02:00 12/09/24 02:00 12/09/24 01:36 12/09/24 01:22 12/09/24 01:21 12/09/24 01:15 12/09/24 01:05 12/09/24 01:03 (1) Adenocarcinoma of lung Laterality: right Qualified Code(s): C34.91 - Malignant neoplasm of unspecified part of right bronchus or lung
[2024-12-09] MEDS: METOPROLOL TARTRATE 25 MG TAB PO ONE (13:24)
[2024-12-09] MEDS: FUROSEMIDE 40 MG/4 ML VIAL IV ONE (13:26)
[2024-12-09] MEDS: POTASSIUM CHLORIDE / WTR 20 MEQ/100 ML PLCT IV SCH (14:42)
[2024-12-09 22:38] LABS: Pneumocystis jirovecii PCRQual DETECTED; Pneumocystis jirovecii Source SPUTUM
[2024-12-10 05:18] LABS: Hematocrit (blood only) 28.8 % (42.0-52.0); Hemoglobin 9.5 g/dl (14.0-18.0); Immature Granulocytes # (auto) 0.21 K/uL (0.01-0.20); Immature Granulocytes % (auto) 4.4 %; Mean Corpuscular Hemoglobin 29.8 pg (25.0-34.0); Mean Corpuscular Volume 90.3 fL (80.0-100.0); Platelet Count 144 K/uL (130-400); RDW Standard Deviation 58.4 fL (36.4-46.3); Red Blood Count 3.19 M/uL (4.70-6.10); White Blood Count 4.73 K/ul (4.8-10.8)
[2024-12-10 05:36] LABS: Alanine Aminotransferase 36.0 U/L (7-52); Albumin Globulin Ratio 1.2 (0.9-2); Albumin Level 3.3 gm/dl (3.4-5.0); Alkaline Phosphatase 158.0 U/L (34-104); Anion Gap 7.0 (3-11); Bilirubin,Total 1.3 mg/dl (0.2-1.0); Blood Urea Nitrogen 36.0 mg/dl (6-23); Calcium 8.6 mg/dl (8.6-10.3); Carbon Dioxide 30.0 mmol/L (21-32); Chloride 103.0 mmol/L (98-107); Creatinine Clr Calc Pharmacy 64.5 ml/min; Globulin 2.7 gm/dl (2.5-4.0); Glucose 146.0 mg/dl (70-99(Fasting)); Magnesium 2.5 mg/dl (1.7-2.4); Potassium 3.7 mmol/L (3.5-5.1); Sodium 140.0 mmol/L (136-145); Total Protein 6.0 gm/dl (6.0-8.3)
[2024-12-10 05:41] LABS: ANTI-Xa, UFH(UnfractionatedHep 0.59 IU/ml (0.3-0.7)
[2024-12-10] MEDS: LEVOTHYROXINE SODIUM 50 MCG TABLET PO SCH (06:13)
[2024-12-10 07:03] LABS: Cdiff Toxin B Gene (2yr or >) Negative Cdiff Gene (Neg)
[2024-12-10] MEDS: SULFA IV ONE (09:23)
[2024-12-10] MEDS: TRIMETH IV ONE (09:23)
[2024-12-10] MEDS: DEXTROSE 5% IV ONE (09:23)
--- NOTE | 2024-12-10 09:30 | Pulmonology Progress Note ---
Date of Service December 10, 2024 Assessment & Plan (1) Acute hypoxic respiratory failure: (2) Pneumocystis jiroveci pneumonia: (3) Adenocarcinoma of lung: Laterality: right Qualified Code(s): C34.91 - Malignant neoplasm of unspecified part of right bronchus or lung (4) Bilateral pulmonary embolism: Plan Patient is an 79-year-old male with a history of right lung adenocarcinoma, paulina nary artery disease, CAD, pulmonary hypertension, emphysema, hypothyroidism, GERD, hypertension, esophageal varices, TMJ and vitamin D deficiency. The patient follows with Dr. Mcbride in the pulmonary clinic. Was being treated outpatient with chemotherapy in September and received radiation treatment in October. The patient presented to the hospital 11/30/2024 with shortness of breath and lower extremity edema. Imaging on arrival showed bilateral lower lobe subsegmental pulmonary emboli and increasing GGO's in bilateral lung [place]. The patient was started on anticoagulation. He continued to have worsening respiratory failure with hypoxia for which pulmonary was consulted. Echocardiogram did not show evidence of RV strain with the PE. He was started on antibiotics to cover for community-acquired pneumonia and started on Bactrim and IV steroids. The patient continued to be hypoxic and required maximum Optiflow of 60 L and 100%. Steroids were continued and the dose was increased. Antibiotics were broadened to Zosyn and vancomycin. Lasix were added and the patient was aggressively diuresed. The patient had hyponatremia after Bactrim therefore this was discontinued. Urine Legionella was negative therefore atypical coverage with azithromycin was stopped. Sputum culture grew Staphylococcus hemolyticus sensitive to vancomycin and linezolid. Oncology was consulted, due to concern for radiation pneumonitis the plan was to initiate a dose of tocilizumab. However sputum cultures are now showing positive pneumocystis jiroveci PCR therefore tocilizumab has been discontinued and the patient was started on Bactrim. Infectious workup: CRP: 11.3 on admission, decreased to 1.91. Viral PCR negative. Pneumocystis jiroveci PCR positive from sputum 12/05/2024 Beta D glucan level is low. Urine culture with Klebsiella. Blood culture no growth to date. Sputum culture from 12/05/2024 with Staphylococcus hemolyticus sensitive to vancomycin and linezolid. Problem list: Acute hypoxic respiratory failure Staphylococcus haemolyticus pneumonia Pneumocystis jiroveci pneumonia Possible radiation pneumonitis Bilateral subsegmental PE Right lung adenocarcinoma Underlying emphysema Underlying pulmonary hypertension Assessment: Imaging from admission showed diffuse GGO's, more significant on the right however still present on the left. The patient also was found to have subsegmental PEs. Differential diagnosis included pneumonitis from radiation or chemotherapy versus infectious etiology. Sputum cultures initially only grew Staphylococcus hemolyticus for which the patient was treated appropriately. PCR from his sputum has resulted now and is showing PJP pneumonia. His CT findings with the GGO's could very likely have been PJP initially rather than radiation pneumonitis. At this point I do not think his PEs are really contributing to his hypoxia. He has been anticoagulated appropriately. Echo did not show evidence of RV dysfunction. He has both staph and PJP pneumonia. Both of these are likely contributing to his profound hypoxia. Recommendations/plan: Continue Optiflow. Wean for saturation of 88 to 92%. Desaturates very easily with any sort of movement. Patient has been on high-dose steroids with methylprednisolone, steroids were initiated on 12/03/2024. Will need to continue corticosteroids given the diagnosis of PJP pneumonia. I will decrease the steroid dose slightly today, we will do 40 mg every 6 hours. I have started IV Bactrim which will likely need to be continued for 3 weeks. The patient did have some hyponatremia previously when he had Bactrim therefore we will need to watch the sodium closely. We will have to consider alternative treatment if this occurs again. I have also placed an ID consult. I reached out to oncology about the positive PJP, they agree with stopping the tocilizumab. The order has been discontinued. Patient should remain on GI prophylaxis while on steroids. Continue to diurese to maintain euvolemia. Currently on vancomycin for the staph pneumonia. Patient still remains critically ill with a generally poor prognosis. Diagnosis and plan of care was discussed in detail with patient. All questions were addressed. Discussed extensively with bedside RN. Case discussed at length with hospitalist service and oncologist. Thank you for this consultation, I will continue to follow along with you. Admission and Anticipated Discharge Date Admission Date: November 29, 2024 Subjective Patient examined during morning rounds. He says that he feels as though his breathing is a little bit better today. Currently resting comfortably on 40 L and 100% FiO2. Seems less tachypneic this morning. Not having much phlegm production. No fevers or chills overnight. Review of Systems Review of Systems: Denies fevers, chills or night sweats. Denies abdominal pain, appetite is good. Endorses generalized weakness. Endorses shortness of breath and difficulty breathing with minimal movement. Feels as though breathing is improving. Denies sputum production. Denies lower extremity edema. Physical Exam Physical Exam: Physical examination: General: Chronically ill-appearing, frail, resting in bed, not in acute distress. HEENT: Normocephalic, atraumatic. Extraocular movements intact. Sclera are non icteric. No JVD appreciated. Skin: Warm and dry. No rashes appreciated. No jaundice appreciated. Cardiovascular: Heart is a regular rate and rhythm, no murmurs appreciated on my exam. No significant lower extremity edema. Lungs: Coarse breath sounds, Rales appreciated at bilateral bases. Nontachypneic. On Optiflow 40 L and 100% satting 94%. Abdomen: Nondistended, nontender to palpation. Musculoskeletal: Normal muscle mass and tone. No gross joint deformity abnormalities. No effusions appreciated. Neurologic: Awake and alert, oriented. CN II through XII are grossly intact. Speech is fluent. Nonfocal exam. Hard of hearing. Psychiatric: Appropriate cooperative during my exam. Results & Data Results & Data Vital Signs (Past 12 Hours) Vital Signs Temp Pulse Pulse Resp BP BP Pulse Ox 12/10/24 07:51 83 12/10/24 07:09 85 17 95 12/10/24 06:23 82 12/10/24 03:31 36.0 C L 87 25 H 135/74 92 12/10/24 03:00 81 18 98 12/10/24 00:45 36.7 C 12/10/24 00:00 80 17 126/72 91 12/09/24 23:00 76 15 93 12/09/24 23:00 78 18 94 12/09/24 22:24 77 15 94 12/09/24 22:00 147/79 H 12/09/24 21:42 78 14 94 O2 Del Method O2 Flow Rate FiO2 12/10/24 07:51 12/10/24 07:09 High Flow Nasal Cannula 40 80 12/10/24 06:23 12/10/24 03:31 High Flow Nasal Cannula 45 90 12/10/24 03:00 High Flow Nasal Cannula 45 90 12/10/24 00:45 12/10/24 00:00 12/09/24 23:00 12/09/24 23:00 High Flow Nasal Cannula 45 90 12/09/24 22:24 12/09/24 22:00 12/09/24 21:42 PG Care Time/CCT Total # of Minutes Spent Total Time Spent with Patient: Total time spent is greater than 50% in coordination of care (as documented) at patient's floor/unit and/or counseling patient: Coding [place] [address] SUB INP/OBS CARE 3/50MIN Patient Type Established History Detailed Exam Detailed Medical Decision Making High Complexity Diagnoses Acute hypoxic respiratory failure J96.01 Pneumocystis jiroveci pneumonia B59 Adenocarcinoma of right lung C34.91 Laterality: right Bilateral pulmonary embolism I26.99 Time Spent (min) 60 Comment Early 60 minutes of time was spent caring for this critically ill patient.
--- NOTE | 2024-12-10 11:10 | Pharmacy Report ---
Pharmacy PK ABX Note - Date of Service December 10, 2024 - Assessment and Plan Assessment 12/10 * Level today 18/8 mcg/mL still predicting slightly subtherapeutic, will increase frequency. SCr has been downtrending * Bactrim restarted today with + PJP PCR- ID consulted. Will need to monitor SCr closely 12/08 * Staph haemolyticus isolated from sputum culture is oxacillin resistant. Continue vancomycin * SCr stable * Level today associated with a slightly subtherapeutic AUC over the next 24 hours. Will increase dose slightly 12/06 * 79 year old M previously receiving ZOSYN/AZITHROMYCIN/Bactrim for treatment of PNA. Bactrim discontinued today. Vancomycin started for Staph haemolyticus now growing in sputum culture. Patient with history of right lung adenocarcinoma, pulm HTN, emphysema, also with pulmonary emboli. SCr had been on upward trend with initiation of Bactrim-- monitor Plan Vancomycin * Increase vancomycin 1500 mg IV every 18 hours * Regimen is predicted to achieve target AUC/AYAZ of 400-600 mg/L.hr * Random level in 2 days Pharmacy will continue to follow and will adjust dose/frequency as necessary. Thank you. Pharmacy has transitioned to AUC monitoring for vancomycin. AUC/AYAZ is the preferred PK/PD target and is associated with decreased risk of nephrotoxicity compared to traditional trough targets.
[2024-12-10] MEDS ORDERED: TOCILIZUMAB 600 MG in SODIUM CHLORIDE 0.9% 70 ML IV ONE (12:00)
--- NOTE | 2024-12-10 14:27 | Infectious Disease Consult ---
Date of Consultation December 10, 2024 Assessment & Plan (1) Pneumocystis jiroveci pneumonia: (2) Pneumonitis: (3) Bilateral pulmonary infiltrates: Plan This is a 79-year-old male with a past medical history of non-small cell cancer of the right lung status post chemotherapy plus radiation, (chemotherapy stopped in 09/2024 secondary to cytopenias; last radiation 10/2024,plan to start immunotherapy),hypertension, hyperlipidemia, hypothyroidism, pulmonary hypertension, status post MVR, sp Port-A-Cath, esophageal varices presents to the ED on 11/29/24 w/worsening dyspnea that worsened with exertion. He endorsed a productive cough that was blood-tinged as well as B/L lower extremity edema. He denied fever chills. On admission he was afebrile, tachypneic, tachycardic and hypoxic. Labs notable for WBC of 1.52 (ANC 1.03), total bili 1.6, AST 60, ALT 48, CRP 11.33. Respira tory viral panel negative, beta D glucan less than 31 (negative)), Legionella antigen negative, creatinine 1.03, MRSA screen negative, procalcitonin 0.10. Initial CTA chest showed bilateral lower lobe pulmonary embolism: Interval increase in size of multifocal nodular opacities in the right lower lobe which could be inflammatory though bronchogenic carcinoma is also possible. Interval worsening of multifocal ground glass opacities which may be due to viral pneumonitis. Mild mediastinal and bilateral hilar adenopathy. Small pleural effusion. Initial chest x-ray showed stable interstitial and faint pulmonary opacities. Throughout his course chest x-ray showed progression of the bilateral airspace opacities and interstitial thickening. He was initially started on piperacillin/tazobactam, dexamethasone, azithromycin and heparin GTT. His course was complicated by increasing O2 requirements despite o 100% FiO2 with 60 L of oxygen. His O2 sats remained in the high 80s and low 90s. He was dyspneic with minimal movement. TMP-SMX was added for possible Pneumocystis Jirovecii infection. Serum beta D glucan was negative. Sputum culture grew Staphylococcus hemolyticus (penicillin and TMPSMX resistant). He was started on IV vancomycin and TMPSMX was discontinued. She was followed by pulmonary who felt that he was too high risk for bronchoscopy and it may be low yield. He was moved to the PCU. His prognosis was felt to be poor and it was thought that transitioning to comfort measures and hospice level of care would be appropriate. Patient is DNR /DNI but wanted all other aggressive measures to continue. He did not feel he was ready for comfort measures. He was evaluated by heme-onc and starting tocilizumab was considered given the possible inflammatory vs radiation related nature of the pneumonitis. Sputum PCR was sent for Pneumocystis jirovecii and finalized as positive. Infectious disease consulted for positive PJP PCR. He was restarted on TMPSMX An E consult without video evaluation completed as video/camera is not working. Microbiology 12/05 sputum culture Staphylococcus hemolyticus (sensitive to linezolid, vancomycin) Antibiotics Ceftriaxone 12/02 - 12/03 Azithromycin 12/02 - 12/05 TMPSMX 12/04 - 12/05, 12/10current Vancomycin 12/06current # Worsening acute hypoxic respiratory failure # Non-small cell lung cancer, sp chemotherapy , radiation ( pending immunotherapy) # Pulmonary Embolism # Possible pneumonitis (chemo- induced versus radiation-induced l) # Left chest port in place # Positive Pneumocystis Jirovecii PCR on sputum culture, negative serum Beta D glucan # Positive staph hemolyticus on sputum culture # Elevated LDH 495-->848. # sp MVR Discussion: His worsening respiratory status is likely multifactorial in the setting of PE, lung adenocarcinoma, possible staph hemolyticus pneumonia, possible pneumonitis, possible PJP. Althought this sputum PCR is positive PJP and His LDH is elevated, Beta D glucan is negative He is currently on TMPSMX and IV vancomycin Recommendations Continue IV vancomycin per pharmacy protocol for 7 days for pneumonia Continue TMPSMX for 21 days, Will need to closely monitor K, Na, Cr on therapy. Continue dexamethasone Thank you for this consult. ID will continue to follow. Hue Doherty MD, MPH Infectious Disease [facility] Call [phone] with questions Consultation Information This patient recommendation is based on a telemedicine consult request which was completed asynchronously through chart review and information provided by the primary physician. The patient was not seen or examined today. The evaluation is consultative in nature and all patient care and treatment decisions can either be accepted or rejected by the patient's primary hospital-based treating physician using their own independent medical judgment for their patient. [employer] contact information: Please call [facility] Call Center . (Phone Number For Physician Use Only) Time Spent Reviewing Chart: 31+ minutes History of Present Illness Reason for Consultation: PJP Pcr + Requesting Physician: Mar Ascencio MD Attending Physician: Geo Eaton MD History of Present Illness This is a 79-year-old male with a past medical history of non-small cell cancer of the right lung status post chemotherapy plus radiation, (chemotherapy stopped in 09/2024 secondary to cytopenias; last radiation 10/2024,plan to start immu notherapy),hypertension, hyperlipidemia, hypothyroidism, pulmonary hypertension, status post MVR, sp Port-A-Cath, esophageal varices presents to the ED on 11/29/24 w/worsening dyspnea that worsened with exertion. He endorsed a productive cough that was blood-tinged as well as B/L lower extremity edema. He denied fever chills. On admission he was afebrile, tachypneic, tachycardic and hypoxic. Labs notable for WBC of 1.52 (ANC 1.03), total bili 1.6, AST 60, ALT 48, CRP 11.33. Respiratory viral panel negative, beta D glucan less than 31 (negative)), Legionella antigen negative, creatinine 1.03, MRSA screen negative, procalcitonin 0.10. Initial CTA chest showed bilateral lower lobe pulmonary embolism: Interval increase in size of multifocal nodular opacities in the right lower lobe which could be inflammatory though bronchogenic carcinoma is also possible. Interval worsening of multifocal ground glass opacities which may be due to viral pneumonitis. Mild mediastinal and bilateral hilar adenopathy. Small pleural effusion. Initial chest x-ray showed stable interstitial and faint pulmonary opacities. Throughout his course chest x-ray showed progression of the bilateral airspace opacities and interstitial thickening. He was initially started on piperacillin/tazobactam, dexamethasone, azithromycin and heparin GTT. His course was complicated by increasing O2 requirements despite o 100% FiO2 with 60 L of oxygen. His O2 sats remained in the high 80s and low 90s. He was dyspneic with minimal movement. TMP-SMX was added for possible Pneumocystis Jirovecii infection. Serum beta D glucan was negative. Sputum culture grew Staphylococcus hemolyticus (penicillin and TMPSMX resistant). He was started on IV vancomycin and TMPSMX was discontinued. She was followed by pulmonary who felt that he was too high risk for bronchoscopy and it may be low yield. He was moved to the PCU. His prognosis was felt to be poor and it was thought that transitioning to comfort measures and hospice level of care would be appropriate. Patient is DNR /DNI but wanted all other aggressive measures to continue. He did not feel he was ready for comfort measures. He was evaluated by heme-onc and starting tocilizumab was considered given the possible inflammatory vs radiation related nature of the pneumonitis. Sputum PCR was sent for Pneumocystis jirovecii and finalized as positive. Infectious disease consulted for positive PJP PCR. He was restarted on TMPSMX An E consult without video evaluation completed as video/camera is not working. Allergies Allergy/AdvReac Type Severity Reaction Status Date / Time atenolol AdvReac Mild Diarrhea Verified 11/11/24 09:29 Home Medications Medication Instructions Recorded Confirmed Type calcium polycarbophil 625 mg 625 mg PO BID 11/13/19 11/29/24 History tablet (Fiber-Tabs) ferrous sulfate 325 mg (65 mg 325 mg PO QPM 11/13/19 11/29/24 History iron) tablet (iron) multivitamin 1 tab PO QAM 03/31/22 11/29/24 History latanoprost 0.005 % eye drops 1 drp OPR HS 01/11/24 11/29/24 History atorvastatin 40 mg tablet 40 mg PO HS #90 tabs 03/11/24 11/29/24 Rx esomeprazole magnesium 20 mg 20 mg PO QPM #90 caps 05/14/24 11/29/24 Rx capsule,delayed release (Nexium 24HR) amoxicillin 500 mg capsule 2,000 mg (4 x 500 mg) PO .COMPLEX 05/15/24 11/29/24 Rx #4 caps tamsulosin 0.4 mg capsule 0.8 mg (2 x 0.4 mg) PO QPM 07/01/24 11/29/24 Rx frequency #180 caps aspirin 81 mg tablet,delayed 81 mg PO QAM 08/02/24 11/29/24 History release tiotropium bromide 2.5 2 puff inhalation DAILY #4 grams 10/01/24 11/29/24 Rx mcg/actuation mist for inhalation (Spiriva Respimat) mirabegron 50 mg tablet,extended 50 mg PO QPM #90 tabs 10/25/24 11/29/24 Rx release 24 hr (Myrbetriq) metoprolol succinate 25 mg 25 mg PO QAM #90 tabs 11/07/24 11/29/24 Rx tablet,extended release 24 hr levothyroxine 50 mcg tablet 50 mcg PO QAM #90 tabs 11/19/24 11/29/24 Rx Patient History Medical History Adenocarcinoma of lung dx 07/2024 Mitral valve disease CABG x2 + MVR (04/09/24[place] [facility] [place] (coronary artery disease) CABG x2 + MVR (04/09/24), [facility] [place]x of esophageal varices Hx of pulmonary hypertension History of hypothyroidism Hx of hyperlipidemia History of hypertension History of prostate cancer Dx 2021 S/P brachytherapy, XRT Hx of gastroesophageal reflux (GERD) Hx of emphysema Lung mass Noted on CTS "Reason for upcoming bronchoscopy" Rectal bleeding hx, no current issues Cervical arthritis limited ROM per patient History of iron deficiency anemia hx of transfusions within the year (03/2024) Premature ventricular contractions Follows with [facility] cardio Raynaud's disease TMJ (temporomandibular joint disorder) No issues since surgical intervention Surgical History Port-A-Cath in place (09/26/24) Insertion of Magnetic Resonance Imaging Compatible Access Port- Left Subclavian Vein(Left) - Sampson Durham MD, FACS MRI clip placed in left subclavian performed utilizing fluoroscopy throughout the procedure Dr. Durham History of bronchoscopy 07/2024, robotic navigational bronchoscopy with endobronchial US, [facility] History of mitral valve replacement CABG x2 + MVR (04/09/24), [facility] [place] Hx of brachytherapy 07/14/22 [facility] Hx of cardiac cath 03/11/24, [facility], no stents Hx of CABG CABG x2 + MVR (04/09/24), [facility] [place] History of esophagogastroduodenoscopy (EGD) History of cataract surgery R/L History of colonoscopy History of surgery for TMJ H/O hernia repair Family History Uncle Ruptured thoracic aortic aneurysm Other Hypertension No family history of adverse response to anesthesia Denies family history of Ovarian cancer Prostate cancer Myocardial infarction Breast cancer Colorectal cancer Social History Smoking Status: Former smoker Tobacco Type: Cigarettes Age Started Using Tobacco: 14; Age Quit Using Tobacco: 38; packs per day: 0; Second Hand Exposure: No; Do You Dip or Chew Tobacco: No; Tobacco Cessation Education Requested by Patient: No Hx Alcohol Use: No Hx Substance Use: No Preferred Language: Kyrgyz Communication Ability: Effective Visual Impairment: Limited Hearing Ability: Use of Hearing Aid Gear Straightener Required: No Beliefs That Will Affect Care: None marital status: Current Living Situation: Spouse Current Living Situation Comment: current occupational status: retired current occupation: Retired How many Children do You have: 4 Other Information That Helps Us Care for You: No Feels Safe at Home: Yes Safety Concerns: Feels Safe At This Time Childhood Exposure to Second-Hand Smoke: Yes Diet: regular caffeine: Yes during the past year weight has: remained stable Dental Care, Regularly: Yes Physical Activity Frequency: Daily Seatbelt Use: always Sunscreen Use: Yes Do you think of yourself as: straight/heterosexual Sexual Activity: has been sexually active, but not for at least 12 months Gender Identity: Male Assistive Devices: None Results & Data Vital Signs (Past 12 Hours) Vital Signs Temp Pulse Pulse Resp BP BP Pulse Ox 12/10/24 12:43 85 14 98 12/10/24 10:06 89 15 12/10/24 10:00 140/78 12/10/24 09:54 93 H 13 12/10/24 08:30 12/10/24 08:06 99 H 19 83 L 12/10/24 08:00 141/85 H 12/10/24 07:54 95 H 21 88 L 12/10/24 07:51 83 12/10/24 07:15 85 16 94 12/10/24 07:09 85 17 95 12/10/24 06:23 82 12/10/24 03:31 36.0 C L 87 25 H 135/74 92 12/10/24 03:00 81 18 98 O2 Del Method O2 Flow Rate FiO2 12/10/24 12:43 High Flow Nasal Cannula 35 70 12/10/24 10:06 High Flow Nasal Cannula 12/10/24 10:00 12/10/24 09:54 12/10/24 08:30 High Flow Nasal Cannula 12/10/24 08:06 12/10/24 08:00 12/10/24 07:54 12/10/24 07:51 12/10/24 07:15 12/10/24 07:09 High Flow Nasal Cannula 40 80 12/10/24 06:23 12/10/24 03:31 High Flow Nasal Cannula 45 90 12/10/24 03:00 High Flow Nasal Cannula 45 90 Laboratory Results 12/10/24 12/10/24 12/05/24 05:00 04:56 11:30 WBC 4.73 L RBC 3.19 L Hgb 9.5 L Hct 28.8 L MCV 90.3 MCH 29.8 MCHC 33.0 RDW Std Deviation 58.4 H RDW Coeff of Joesph 17.7 H Plt Count 144 MPV 10.2 Immature Gran % (Auto) 4.4 Neut % (Auto) 86.2 Lymph % (Auto) 4.7 Sutton % (Auto) 4.7 Eos % (Auto) 0.0 Baso % (Auto) 0.0 Neut # (Auto) 4.08 Lymph # (Auto) 0.22 L Sutton # (Auto) 0.22 Eos # (Auto) 0.00 Baso # (Auto) 0.00 Immature Gran # (Auto) 0.21 H Absolute Nucleated RBC 0.03 Nucleated RBC % (auto) 0.6 Heparin Anti-Xa, Unfract 0.59 Sodium 140 Potassium 3.7 Chloride 103 Carbon Dioxide 30 Anion Gap 7 BUN 36 H Creatinine 0.84 Est Cr Clr Drug Dosing 64.5 eGFR 87.61 BUN/Creatinine Ratio 42.9 H Glucose 146 H Calcium 8.6 Phosphorus 4.0 Magnesium 2.5 H Total Bilirubin 1.3 H AST 36 ALT 36 Alkaline Phosphatase 158 H Lactate Dehydrogenase 848 H Total Protein 6.0 Albumin 3.3 L Globulin 2.7 Albumin/Globulin Ratio 1.2 Stool Occult Bld Scrn Positive A Stl C. diff Tox B Gene Negative Cdiff Gene Stl C. diff [id number] NEGATIVE Random Vancomycin 18.8 Pneumocystis Source SPUTUM Pneumocyst jirovecii PCR DETECTED A Diagnostic Findings Chest X-Ray 12/07/24 13:06 Chest radiograph, one view History: ARSD. Comparison: Prior day exam. Findings: Left chest port catheter again noted. Likely CABG changes. Persistent least moderate diffuse probably bilateral perihilar and left infrahilar increased reticular markings with airspace opacities and mild air bronchograms. Obscuration portions of the left hemidiaphragm and heart borders with diminished pulmonary vascular clarity. Suspect small effusions. Overall there appears to be improved definition of the interstitial markings. Likely cardiac valve prosthesis. Impression: Persistent but slightly improved moderate diffuse increased interstitial and airspace opacities most worrisome for interstitial edema. Pneumonia is not excluded. Electronically signed by Pancho Lin 12-07-2024 3:30 PM Chest X-Ray 12/08/24 08:22 XR chest 1V portable CLINICAL HISTORY: f/u PNA,hypoxia COMPARISON STUDY: 12/07/2024 FINDINGS: Stable CABG. Stable chest port. Stable cardiomegaly with pulmonary vascular congestion. Stable diffuse interstitial and patchy pulmonary opacities. No pleural effusion or pneumothorax seen. IMPRESSION: Stable exam. ACT 112: Negative or not required by law. Electronically signed by: Jesu Morley M.D. 12/08/2024 9:08 AM Chest X-Ray 12/09/24 07:00 EXAM: XR chest 1V portable CLINICAL HISTORY: Follow-up pneumonia TECHNIQUE: An X-ray image of the chest was obtained in the AP projection. COMPARISON: 12-07-2024 CR. FINDINGS: Pulmonary Parenchyma: There is mild interval improvement in air space opacities and unchanged reticular shadowing in the left mid and lower zones. There are unchanged air space opacities and reticular shadowing in the right mid and lower zones. There is a new finding of blunting of the right CP angle, likely representing mild pleural effusion versus thickening. There is no evidence of left pleural effusion or pleural thickening. Heart and Mediastinum: Cardiomegaly is seen. There is no mediastinal widening or masses. There is no hilar or mediastinal lymphadenopathy. Bony Thorax: Sternotomy sutures are noted. The bony thorax appears intact without fractures or deformities. Soft Tissues: Soft tissues overlying the chest wall are unremarkable. IMPRESSION: 1. There is mild interval improvement in air space opacities and unchanged reticular shadowing in the left mid and lower zones. 2. There are unchanged air space opacities and reticular shadowing in the right mid and lower zones. 3. There is a new finding of blunting of the right CP angle, likely representing mild pleural effusion versus thickening. 4. Cardiomegaly is stable. Electronically signed by Yair Acevedo 12-09-2024 07:56 AM Medications Administered Home Medications Medication Instructions Recorded Confirmed Last Taken calcium polycarbophil 625 mg 625 mg PO BID 11/13/19 11/29/24 11/29/24 tablet (Fiber-Tabs) ferrous sulfate 325 mg (65 mg 325 mg PO QPM 11/13/19 11/29/24 11/28/24 iron) tablet (iron) multivitamin 1 tab PO QAM 03/31/22 11/29/24 11/29/24 latanoprost 0.005 % eye drops 1 drp OPR HS 01/11/24 11/29/24 11/28/24 atorvastatin 40 mg tablet 40 mg PO HS #90 tabs 03/11/24 11/29/24 11/28/24 esomeprazole magnesium 20 mg 20 mg PO QPM #90 caps 05/14/24 11/29/24 11/28/24 capsule,delayed release (Nexium 24HR) amoxicillin 500 mg capsule 2,000 mg (4 x 500 mg) PO .COMPLEX 05/15/24 11/29/24 08/08/24 #4 caps tamsulosin 0.4 mg capsule 0.8 mg (2 x 0.4 mg) PO QPM 07/01/24 11/29/24 11/28/24 frequency #180 caps aspirin 81 mg tablet,delayed 81 mg PO QAM 08/02/24 11/29/24 11/29/24 release tiotropium bromide 2.5 2 puff inhalation DAILY #4 grams 10/01/24 11/29/24 11/29/24 mcg/actuation mist for inhalation (Spiriva Respimat) mirabegron 50 mg tablet,extended 50 mg PO QPM #90 tabs 10/25/24 11/29/24 11/28/24 release 24 hr (Myrbetriq) metoprolol succinate 25 mg 25 mg PO QAM #90 tabs 11/07/24 11/29/24 11/29/24 tablet,extended release 24 hr levothyroxine 50 mcg tablet 50 mcg PO QAM #90 tabs 11/19/24 11/29/24 11/29/24 Active Medications Generic Name Dose Route Start Last Admin Trade Name Freq PRN Reason Stop Dose Admin Acetaminophen 650 mg 11/29/24 23:34 12/05/24 09:55 Acetaminophen 325 Mg Tab PO 12/29/24 23:33 650 mg Q4H PRN Administration Pain or Fever Al Hydrox/Mg Hydrox/Simethicone 15 ml 11/30/24 05:34 11/30/24 05:47 Aluminum/Magnesium Susp 30 Ml Udc PO 12/30/24 05:33 15 ml Q6H PRN Administration Heartburn Albuterol 3 ml 11/30/24 01:28 12/05/24 13:25 Albut/Ipratrop 3mg/0.5mg Neb 3 Ml Vial NEB 12/30/24 01:27 3 ml Q6R PRN Administration Shortness Of Breath Or Wheezing Protocol Aspirin 81 mg 11/30/24 09:00 12/10/24 08:28 Aspirin 81 Mg Ectab PO 12/30/24 08:59 81 mg QAM RITO Administration Atorvastatin Calcium 40 mg 11/29/24 23:34 12/09/24 21:09 Atorvastatin 40 Mg Tab PO 12/29/24 23:33 40 mg HS RITO Administration Budesonide 0.5 mg 12/03/24 19:00 12/10/24 07:08 Budesonide 0.5 Mg/2 Ml Vial (Pulmicort) NEB 01/02/25 18:59 0.5 mg BIDR RITO Administration Formoterol Fumarate 20 mcg 12/03/24 19:00 12/10/24 07:08 Formoterol 20 Mcg/2 Ml Vial NEB 01/02/25 18:59 20 mcg BIDR RITO Administration Heparin Sodium/Dextrose 25,000 units in 500 mls @ 18 mls/hr 11/29/24 19:45 12/10/24 06:54 Heparin 12255 Unit/500 Ml D5w IV 12/29/24 19:44 900 units/hr .Q24H RITO 18 mls/hr Titration Protocol 900 UNITS/HR Pantoprazole Sodium 40 mg in 10 mls @ 5 mls/min 12/06/24 15:30 12/10/24 08:27 Protonix IV 01/05/25 15:29 5 mls/min DAILY RITO Administration Methylprednisolone 40 mg/ 0.64 mls @ 0.667 mls/min 12/10/24 08:16 12/10/24 09:24 Syringe IV 01/09/25 08:15 0.667 mls/min Q6H RITO Administration Latanoprost 1 drops 11/29/24 23:34 12/09/24 21:09 Latanoprost 0.005% Op Soln 2.5 Ml Btl OPR 12/29/24 23:33 1 drops HS RITO Administration Levothyroxine Sodium 50 mcg 12/10/24 06:30 12/10/24 06:13 Levothyroxine Sodium 50 Mcg Tablet PO 01/09/25 06:29 50 mcg DAILYBB RITO Administration Lorazepam 0.5 mg 12/06/24 08:38 12/07/24 20:58 Lorazepam 2 Mg/1 Ml Vial IV 01/05/25 08:37 0.5 mg Q8H PRN Administration Anxiety/Agitation Melatonin 3 mg 11/29/24 23:34 12/05/24 22:02 Melatonin 3 Mg Tab PO 12/29/24 23:33 3 mg HS PRN Administration Insomnia Menthol 1 candida 12/02/24 00:16 12/02/24 00:32 Cough Drop (Sugar Free) Candida 24 Candida/1 Box BUCCAL 01/01/25 00:15 1 candida Q2H PRN Administration Sore Throat Metoprolol Succinate 25 mg 11/30/24 09:00 12/10/24 08:28 Metoprolol Succ 25mg Ext Rel Tab PO 12/30/24 08:59 25 mg QAM RITO Administration Morphine Sulfate 1 mg 12/05/24 18:12 12/07/24 02:04 Morphine Sulfate 2 Mg/Ml Carp IV 12/19/24 18:11 1 mg Q4H PRN Administration Mod-Sev Pain (Scale 4-10) Nystatin 5 ml 12/08/24 13:00 12/10/24 08:27 Nystatin Susp 500,000 U/5 Ml Udc PO 12/18/24 12:59 5 ml QID RITO Administration Ondansetron HCl 4 mg 11/29/24 23:34 12/06/24 16:56 Ondansetron Inj 2 Mg/Ml 2 Ml Vial IV 12/29/24 23:33 4 mg Q6H PRN Administration Nausea And Vomiting Pantoprazole Sodium 40 mg 11/30/24 09:00 12/06/24 11:02 Pantoprazole 40 Mg Tab PO 12/30/24 08:59 Not Given DAILY RITO Tamsulosin HCl 0.8 mg 11/29/24 23:34 12/09/24 21:09 Tamsulosin Hcl 0.4 Mg Cap PO 12/29/24 23:33 0.8 mg QPM RITO Administration
[2024-12-10] MEDS: VANCOMYCIN HCL 1,500 MG in SODIUM CHLORIDE 0.9% 500 ML IV SCH (14:33)
[2024-12-10] MEDS: SULFA/TRIMETH 80/16MG/ML 320 MG in DEXTROSE 5% 500 ML IV SCH (16:29)
[2024-12-10] MEDS ORDERED: TRIMETH IV SCH (16:30)
[2024-12-10] MEDS ORDERED: SULFA IV SCH (16:30)
[2024-12-10] MEDS ORDERED: DEXTROSE 5% IV SCH (16:30)
[2024-12-10] MEDS: FIRST - Mouthwash BLM 5 ML UDP PO SCH (20:11)
--- NOTE | 2024-12-10 20:53 | Hospitalist Progress Note ---
Date of Service December 10, 2024 Assessment & Plan (1) Pneumocystis jiroveci pneumonia: (2) Pneumonitis: (3) Acute hypoxic respiratory failure: (4) Bilateral pulmonary embolism: (5) Atrial fibrillation with rapid ventricular response: (6) Adenocarcinoma of lung: (7) CAD (coronary artery disease): Plan 79yo male with lung cancer with metastatic disease to mediastinal lymph nodes, CAD s/p 2V CABG, porcine MVR, and maze procedure in March 2024, paroxysmal atrial fibrillation, COPD, HTN, Hyperlipidemia, hypothyroidism, GERD, presenting with two weeks of progressive SOB and LE edema. Patient hypoxic to 88% on room air on arrival. Bilateral pulmonary emboli and b/l groundglass infiltrates seen on CTA chest on 11/29/24. Since admission developed severe acute hypoxic respiratory failure and multifocal pneumonia. PJP from sputum returned positive this am, 12/10/24. #Acute hypoxic respiratory failure - severe, with high settings of HFNC - -multifactorial including b/l PEs, pneumonitis from newly diagnosed PJP infection, staph haemolyticus pneumonia, acute on chronic HFpEF, ? of radiation pneumonitis, COPD -respiratory biofire negative 11/29 -COVID/flu/RSV negative 12/05 -legionella urine ag negative -he had been on broad-spectrum IV antibiotics and was diuresed earlier this admission; finished 5-day course of azithromycin previously -antibiotics ultimately narrowed to IV vancomycin for the staph pneumonia - last day of Rx 12/14 -briefly was on Bactrim earlier this admission -Bactrim resumed 12/10 for PJP positivity -remains on high dose steroids - solumedrol 40mg q6h -this will treat radiation pneumonitis, if present -this may improve outcomes in the setting of his PJP infection as well -remains on heparin infusion for b/l PEs -appreciate pulmonary assistance -infectious diseases consulted today - 21 day course of bactrim recommended -of note - there had been plans to administer Tocilizumab today at the recommendation of heme/onc -given the +PJP test the Tocilizumab has been discontinued #Atrial fibrillation with RVR / NS V-tach - -rapid A-fib on AM of 12/04 -previous history of a.fib and underwent Maze procedure with his CABG and MVR in 03/2024 -echo with preserved EF -spontaneously converted to NSR on 12/06 -TSH wnl -cont metoprolol succinate 25mg daily -continue on heparin drip -ultimately - Eliquis? -some discussion about possible use of amiodarone but this has been deferred #Bilateral subsegmental pulmonary emboli - -Continue heparin drip -Ultimately will transition to Eliquis but defer that for now #Hyponatremia - -lowest Na level 127 -today's Na level 140 #Adenocarcinoma of the lung - IIIb. -s/p chemotherapy and XRT with pause in chemotherapy in September 2024 due to cytopenias -was planning to start immunotherapy in December -primary oncologist - [facility] #antineoplastic chemotherapy induced pancytopenia - -s/p 1 unit PRBCs on 12/07 -cell lines acceptable today -recent B12/folate wnl -recent Fe panel c/w acute phase reactant #CAD - -s/p CABG x 2V performed in March 2024 as well as mitral valve replacement with porcine valve and maze procedure -Echo 12/02 - preserved EF, bioprosthetic MV functioning well -Continue aspirin, atorvastatin, Metoprolol succ daily #Hypertension - -Continue Metoprolol succ #Hyperlipidemia -Continue Atorvastatin #Hypothyroidism - -TSH wnl -Continue Synthroid #Emphysema/COPD - -Continue nebs -Continue IV solumedrol #GERD -Continue Protonix IV #?thrush/sore throat - -nystatin 5ml QID swish/spit -magic mouthwash q6h prn #BPH - -cont flomax #DVT ppx - -heparin drip overall - some improvement with O2 requirement; had been requiring maxed out HFNC settings with superimposed oxymask on top of that in the recent past O2 requirement down to 75-80% [id number] remains very ill in the setting of numerous comorbidities and lung ca; prognosis is guarded extensively updated at bedside today corresponded with [facility] via [place] today I did discuss his case with palliative care today as well called [facility] to request ID consultation Admission and Anticipated Discharge Date Admission Date: November 29, 2024 Subjective patient lying in bed looks weak, tired, ill breathing rapidly at bedside during the visit - while on HFNC 40 L and 70% FiO2 - the o2 sat monitor was constantly ringing, with sats in the low 80s I increased the FiO2 to 75% he c/o weakness and dyspnea he c/o sore throat we discussed the PJP from sputum returning + today had multiple questions about care plan, etc. Review of Systems Review of Systems: gen - tired/weak, appetite poor cv - no chest pain, no pleuritic pain pulm - dyspneic GI - no N/V/abd pain Physical Exam Physical Exam: gen - looks extremely weak, ill, toxic-appearing; tachypneic; after talking a while this worsens his dyspnea neck - no JVD mouth - MM dry, pharynx with scant erythema heart - RRR, s1 s2, no murmur lungs - fine, dry rales both bases, tachypnea, no wheezes abd - soft, slightly distended, BS+, NT, no HSM ext - no edema, pulses b/l feet 2+ psych - awake, alert Results & Data Results & Data Vital Signs (Past 12 Hours) Vital Signs Pulse Pulse Resp BP Pulse Ox O2 Del Method O2 Flow Rate 12/10/24 19:52 High Flow Nasal Cannula 45 12/10/24 19:27 95 H 16 89 L High Flow Nasal Cannula 40 12/10/24 19:26 95 H 16 89 L High Flow Nasal Cannula 40 12/10/24 17:24 85 89 L High Flow Nasal Cannula 12/10/24 16:06 83 19 92 High Flow Nasal Cannula 12/10/24 16:00 148/76 H 12/10/24 15:57 83 22 92 High Flow Nasal Cannula 12/10/24 15:45 83 16 93 High Flow Nasal Cannula 40 12/10/24 15:09 83 13 94 High Flow Nasal Cannula 12/10/24 14:39 88 12/10/24 14:03 84 12 98 12/10/24 14:00 130/72 12/10/24 13:51 88 15 89 L High Flow Nasal Cannula 12/10/24 12:43 85 14 98 High Flow Nasal Cannula 35 12/10/24 12:06 89 26 H 92 High Flow Nasal Cannula 12/10/24 12:00 139/72 12/10/24 11:45 90 20 93 High Flow Nasal Cannula 12/10/24 10:06 89 15 High Flow Nasal Cannula 12/10/24 10:00 140/78 12/10/24 09:54 93 H 13 FiO2 12/10/24 19:52 90 12/10/24 19:27 75 12/10/24 19:26 75 12/10/24 17:24 12/10/24 16:06 12/10/24 16:00 12/10/24 15:57 12/10/24 15:45 70 12/10/24 15:09 12/10/24 14:39 12/10/24 14:03 12/10/24 14:00 12/10/24 13:51 12/10/24 12:43 70 12/10/24 12:06 12/10/24 12:00 12/10/24 11:45 12/10/24 10:06 12/10/24 10:00 12/10/24 09:54 Laboratory Results Laboratory Results - last 24 hr 12/10/24 12/10/24 04:56 05:00 WBC 4.73 L RBC 3.19 L Hgb 9.5 L Hct 28.8 L MCV 90.3 MCH 29.8 MCHC 33.0 RDW Std Deviation 58.4 H RDW Coeff of Joesph 17.7 H Plt Count 144 MPV 10.2 Immature Gran % (Auto) 4.4 Neut % (Auto) 86.2 Lymph % (Auto) 4.7 Candler % (Auto) 4.7 Eos % (Auto) 0.0 Baso % (Auto) 0.0 Neut # (Auto) 4.08 Lymph # (Auto) 0.22 L Candler # (Auto) 0.22 Eos # (Auto) 0.00 Baso # (Auto) 0.00 Immature Gran # (Auto) 0.21 H Absolute Nucleated RBC 0.03 Nucleated RBC % (auto) 0.6 Heparin Anti-Xa, Unfract 0.59 Sodium 140 Potassium 3.7 Chloride 103 Carbon Dioxide 30 Anion Gap 7 BUN 36 H Creatinine 0.84 Est Cr Clr Drug Dosing 64.5 eGFR 87.61 BUN/Creatinine Ratio 42.9 H Glucose 146 H Calcium 8.6 Phosphorus 4.0 Magnesium 2.5 H Total Bilirubin 1.3 H AST 36 ALT 36 Alkaline Phosphatase 158 H Lactate Dehydrogenase 848 H Total Protein 6.0 Albumin 3.3 L Globulin 2.7 Albumin/Globulin Ratio 1.2 Stool Occult Bld Scrn Positive A Stl C. diff Tox B Gene Negative Cdiff Gene Stl C. diff [id number] NEGATIVE Random Vancomycin 18.8 PJP from sputum POSITIVE PG Care Time/CCT Total # of Minutes Spent Total Time Spent with Patient: Total time spent is greater than 50% in coordination of care (as documented) at patient's floor/unit and/or counseling patient: Coding Level of Care Code 56354 SUB INP/OBS CARE 3/50MIN Diagnoses Pneumocystis jiroveci pneumonia B59 Pneumonitis J98.4 Acute hypoxic respiratory failure J96.01 Bilateral pulmonary embolism I26.99 Atrial fibrillation with rapid ventricular response I48.91 Adenocarcinoma of right lung C34.91 Laterality: right CAD (coronary artery disease) I25.10 (6) Adenocarcinoma of lung Laterality: right Qualified Code(s): C34.91 - Malignant neoplasm of unspecified part of right bronchus or lung
[2024-12-11 05:24] LABS: ANTI-Xa, UFH(UnfractionatedHep 0.53 IU/ml (0.3-0.7)
[2024-12-11 05:33] LABS: Anion Gap 7.0 (3-11); Blood Urea Nitrogen 28.0 mg/dl (6-23); Calcium 8.2 mg/dl (8.6-10.3); Carbon Dioxide 27.0 mmol/L (21-32); Chloride 102.0 mmol/L (98-107); Creatinine Clr Calc Pharmacy 67.7 ml/min; Glucose 131.0 mg/dl (70-99(Fasting)); Potassium 3.9 mmol/L (3.5-5.1); Sodium 136.0 mmol/L (136-145)
[2024-12-11 06:24] LABS: Hematocrit (blood only) 27.8 % (42.0-52.0); Hemoglobin 8.9 g/dl (14.0-18.0); Mean Corpuscular Hemoglobin 29.0 pg (25.0-34.0); Mean Corpuscular Volume 90.6 fL (80.0-100.0); Platelet Count 133 K/uL (130-400); RDW Standard Deviation 58.5 fL (36.4-46.3); Red Blood Count 3.07 M/uL (4.70-6.10); White Blood Count 4.59 K/ul (4.8-10.8)
[2024-12-11 06:41] LABS: Immature Granulocytes # (auto) 0.27 K/uL (0.01-0.20); Immature Granulocytes % (auto) 5.9 %; Polychromasia 1+
--- NOTE | 2024-12-11 10:17 | Hospitalist Progress Note ---
Date of Service December 11, 2024 Assessment & Plan (1) Pneumocystis jiroveci pneumonia: (2) Pneumonitis: (3) Acute hypoxic respiratory failure: (4) Bilateral pulmonary embolism: (5) Atrial fibrillation with rapid ventricular response: (6) Adenocarcinoma of lung: (7) CAD (coronary artery disease): Plan 79yo male with lung cancer with metastatic disease to mediastinal lymph nodes, CAD s/p 2V CABG, porcine MVR, and maze procedure in March 2024, paroxysmal atrial fibrillation, COPD, HTN, Hyperlipidemia, hypothyroidism, GERD, presenting with two weeks of progressive SOB and LE edema. Patient hypoxic to 88% on room air on arrival. Bilateral pulmonary emboli and b/l groundglass infiltrates seen on CTA chest on 11/29/24. Since admission developed severe acute hypoxic respiratory failure and multifocal pneumonia. PJP from sputum returned positive this am, 12/10/24. #Acute hypoxic respiratory failure - severe, with high settings of HFNC - -multifactorial including b/l PEs, pneumonitis from newly diagnosed PJP infection, staph haemolyticus pneumonia, acute on chronic HFpEF, possible radiation pneumonitis, COPD -respiratory biofire negative 11/29 -COVID/flu/RSV negative 12/05 -legionella urine ag negative -he had been on broad-spectrum IV antibiotics and was diuresed earlier this admission; finished 5-day course of azithromycin previously -antibiotics ultimately narrowed to IV vancomycin for the staph pneumonia - last day of Rx 12/14 -briefly was on Bactrim earlier this admission -Bactrim resumed 12/10 for PJP positivity -remains on high dose steroids - solumedrol 40mg q6h -this will treat radiation pneumonitis, if present -this may improve outcomes in the setting of his PJP infection as well -remains on heparin infusion for b/l PEs -appreciate pulmonary assistance -infectious diseases consulted today - 21 day course of bactrim recommended Feels more short of breath today, perhaps expected during initiation of bactrim. On max O2 with HFO2 and facemask on top of it. Prognosis extremely guarded. #Atrial fibrillation with RVR / NS V-tach - -rapid A-fib on AM of 12/04, spontaneously converted to NSR on 12/06 -previous history of a.fib and underwent Maze procedure with his CABG and MVR in 03/2024 -echo with preserved EF, TSH wnl -cont metoprolol succinate 25mg daily -on heparin drip -some discussion about possible use of amiodarone but this has been deferred #Bilateral subsegmental pulmonary emboli - -Continue heparin drip -Ultimately will transition to Eliquis but defer that for now #Hyponatremia - -lowest Na level 127 -today's Na level 140 #Adenocarcinoma of the lung - IIIb. -s/p chemotherapy and XRT with pause in chemotherapy in September 2024 due to cytopenias -was planning to start immunotherapy in December -primary oncologist - [facility] #antineoplastic chemotherapy induced pancytopenia - -s/p 1 unit PRBCs on 12/07 -recent B12/folate wnl -recent Fe panel c/w acute phase reactant -W 4.5, Hg 8.9, Plt normal - unchanged #CAD - -s/p CABG x 2V performed in March 2024 as well as mitral valve replacement with porcine valve and maze procedure -Echo 12/02 - preserved EF, bioprosthetic MV functioning well -Continue aspirin, atorvastatin, Metoprolol succ daily #Hypertension - -Continue Metoprolol succ #Hyperlipidemia -Continue Atorvastatin #Hypothyroidism - -TSH wnl -Continue Synthroid #Emphysema/COPD - -Continue nebs -Continue IV solumedrol #GERD -Continue Protonix IV #?thrush/sore throat - -nystatin 5ml QID swish/spit -magic mouthwash q6h prn #BPH - -cont flomax #DVT ppx - -heparin drip Admission and Anticipated Discharge Date Admission Date: November 29, 2024 Subjective short of breath at rest and with minimal activity on both HFO2 and facemask O2 to keep sat's up Physical Exam 2 Physical Exam: Last 24h vitals reviewed GEN: ill appearing, sitting in bed, eating breakfast HEENT: pupils equal, sclerae anicteric, dry MM RESP: increased WOB, tachypneic, very diminished throughout, no wheezing, fine crackles CV: reg, no murmur. obscured ABD: soft/nt/nd +BT : no luther SKIN: warm and dry, no generalized rashes NEURO: AOx person, place, and situation. Face symmetric, speech normal, moves 4 ext spontaneously and equally Results & Data Results & Data Vital Signs (Past 12 Hours) Vital Signs Pulse Pulse Resp BP Pulse Ox O2 Del Method O2 Flow Rate 12/11/24 07:25 90 20 96 High Flow Nasal Cannula 45 12/11/24 06:40 80 12/11/24 06:00 81 14 96 12/11/24 06:00 132/77 12/11/24 06:00 132/77 12/11/24 05:15 87 18 92 12/11/24 04:09 82 14 95 12/11/24 03:00 76 15 97 12/11/24 02:30 74 18 97 High Flow Nasal Cannula 45 12/11/24 02:00 76 15 98 12/11/24 02:00 134/71 12/11/24 02:00 134/71 12/11/24 02:00 134/71 12/11/24 01:00 83 16 94 12/11/24 00:06 81 14 97 12/11/24 00:00 136/73 12/10/24 23:51 83 15 96 12/10/24 23:10 88 16 94 High Flow Nasal Cannula 45 12/10/24 23:00 86 17 95 12/10/24 22:09 88 15 96 FiO2 12/11/24 07:25 75 12/11/24 06:40 12/11/24 06:00 12/11/24 06:00 12/11/24 06:00 12/11/24 05:15 12/11/24 04:09 12/11/24 03:00 12/11/24 02:30 75 12/11/24 02:00 12/11/24 02:00 12/11/24 02:00 12/11/24 02:00 12/11/24 01:00 12/11/24 00:06 12/11/24 00:00 12/10/24 23:51 12/10/24 23:10 75 12/10/24 23:00 12/10/24 22:09 Laboratory Results 12/11/24 05:47 12/11/24 04:48 PG Care Time/CCT Total # of Minutes Spent Total Time Spent with Patient: Total time spent is greater than 50% in coordination of care (as documented) at patient's floor/unit and/or counseling patient: Coding Level of Care Code 72637 SUB INP/OBS CARE 3/50MIN Diagnoses Pneumocystis jiroveci pneumonia B59 Pneumonitis J98.4 Acute hypoxic respiratory failure J96.01 Bilateral pulmonary embolism I26.99 Atrial fibrillation with rapid ventricular response I48.91 Adenocarcinoma of right lung C34.91 Laterality: right CAD (coronary artery disease) I25.10 (6) Adenocarcinoma of lung Laterality: right Qualified Code(s): C34.91 - Malignant neoplasm of unspecified part of right bronchus or lung
--- NOTE | 2024-12-11 11:57 | Pulmonology Progress Note ---
Date of Service December 11, 2024 Assessment & Plan (1) Acute hypoxic respiratory failure: (2) Pneumocystis jiroveci pneumonia: (3) Adenocarcinoma of lung: Laterality: right Qualified Code(s): C34.91 - Malignant neoplasm of unspecified part of right bronchus or lung (4) Bilateral pulmonary embolism: Plan Patient is an 79-year-old male with a history of right lung adenocarcinoma, paulina nary artery disease, CAD, pulmonary hypertension, emphysema, hypothyroidism, GERD, hypertension, esophageal varices, TMJ and vitamin D deficiency. The patient follows with Dr. Mcbride in the pulmonary clinic. Was being treated outpatient with chemotherapy in September and received radiation treatment in October. The patient presented to the hospital 11/30/2024 with shortness of breath and lower extremity edema. Imaging on arrival showed bilateral lower lobe subsegmental pulmonary emboli and increasing GGO's in bilateral lung christians[place]. The patient was started on anticoagulation. He continued to have worsening respiratory failure with hypoxia for which pulmonary was consulted. Echocardiogram did not show evidence of RV strain with the PE. He was started on antibiotics to cover for community-acquired pneumonia and started on Bactrim and IV steroids. The patient continued to be hypoxic and required maximum Optiflow of 60 L and 100%. Steroids were continued and the dose was increased. Antibiotics were broadened to Zosyn and vancomycin. Lasix were added and the patient was aggressively diuresed. The patient had hyponatremia after Bactrim therefore this was discontinued. Urine Legionella was negative therefore atypical coverage with azithromycin was stopped. Sputum culture grew Staphylococcus hemolyticus sensitive to vancomycin and linezolid. Oncology was consulted, due to concern for radiation pneumonitis the plan was to initiate a dose of tocilizumab. However sputum cultures are now showing positive pneumocystis jiroveci PCR therefore tocilizumab has been discontinued and the patient was started on Bactrim. Infectious workup: CRP: 11.3 on admission, decreased to 1.91. Viral PCR negative. Pneumocystis jiroveci PCR positive from sputum 12/05/2024 Beta D glucan level is low. Urine culture with Klebsiella. Blood culture no growth to date. Sputum culture from 12/05/2024 with Staphylococcus hemolyticus sensitive to vancomycin and linezolid. Problem list: Acute hypoxic respiratory failure Staphylococcus haemolyticus pneumonia Pneumocystis jiroveci pneumonia Possible radiation pneumonitis Bilateral subsegmental PE Right lung adenocarcinoma Underlying emphysema Underlying pulmonary hypertension Assessment: Imaging from admission showed diffuse GGO's, more significant on the right however still present on the left. The patient also was found to have subsegmental PEs. Differential diagnosis included pneumonitis from radiation or chemotherapy versus infectious etiology. Sputum cultures initially only grew Staphylococcus hemolyticus for which the patient was treated appropriately. PCR from his sputum has resulted now and is showing PJP pneumonia. His CT findings with the GGO's could very likely have been PJP initially rather than radiation pneumonitis. At this point I do not think his PEs are really contributing to his hypoxia. He has been anticoagulated appropriately. Echo did not show evidence of RV dysfunction. He has both staph and PJP pneumonia. Both of these are likely contributing to his profound hypoxia. Recommendations/plan: Continue Optiflow. Wean for saturation of 88 to 92%. Desaturates very easily with any sort of movement. Patient has been on high-dose steroids with methylprednisolone, steroids were initiated on 12/03/2024. Given the immunocompromise state and respiratory failure I will continue steroids with the PJP pneumonia. Will do methylprednisolone 30 mg twice daily for 5 days, then decrease to once daily for 10 days and then decrease to 20 mg daily until his course of Bactrim is complete. Continue IV Bactrim for 2i days. The patient did have some hyponatremia previously when he had Bactrim therefore we will need to watch the sodium closely. We will have to consider alternative treatment if this occurs again. Infectious diseases consulted and agree with plan. Patient should remain on GI prophylaxis while on steroids. Continue to diurese to maintain euvolemia. Currently on vancomycin for the staph pneumonia. To complete 1 week of therapy. I will repeat an x-ray in the morning. Patient still remains critically ill with a generally poor prognosis. Marginally improved over the past few days. Diagnosis and plan of care was discussed in detail with patient and . All questions were addressed. Discussed extensively with bedside RN. Case discussed at length with hospitalist. Thank you for this consultation, I will continue to follow along with you. Admission and Anticipated Discharge Date Admission Date: November 29, 2024 Subjective Patient seen and examined this morning during rounds. is at bedside this morning. She is happy with how he has progressed over the past couple days, she thinks he looks a lot better. Patient is oxygenating better however he still desats significantly. Oxygenation tends to improve while he is sleeping at night and they are able to wean his oxygen significantly until he wakes up. On 45 L and 75% when I examined him. He is not tachypneic this morning. Not having phlegm production. No fevers or chills overnight. He is complaining of his nose being congested today. Has tried saline nasal spray but this did not help. Agreeable to try another nasal spray. Review of Systems Review of Systems: Denies fevers, chills or night sweats. Denies abdominal pain, appetite is good. Endorses generalized weakness. Endorses shortness of breath and difficulty breathing with minimal movement. Feels as though breathing is improving. Denies sputum production. Denies lower extremity edema. Endorses nasal congestion. Physical Exam Physical Exam: Physical examination: General: Chronically ill-appearing, frail, resting in bed, not in acute distress. HEENT: Normocephalic, atraumatic. Extraocular movements intact. Sclera are nonicteric. No JVD appreciated. Skin: Warm and dry. No rashes appreciated. No jaundice appreciated. Cardiovascular: Heart is a regular rate and rhythm, no murmurs appreciated on my exam. No significant lower extremity edema. Lungs: Coarse breath sounds, Rales appreciated at bilateral bases. Nontachypneic. On Optiflow 45 L and 75% satting 94%. Abdomen: Nondistended, nontender to palpation. Musculoskeletal: Normal muscle mass and tone. No gross joint deformity abnormalities. No effusions appreciated. Neurologic: Awake and alert, oriented. CN II through XII are grossly intact. Speech is fluent. Nonfocal exam. Hard of hearing. Psychiatric: Appropriate cooperative during my exam. Results & Data Results & Data Vital Signs (Past 12 Hours) Vital Signs Pulse Pulse Resp BP Pulse Ox O2 Del Method O2 Flow Rate 12/11/24 11:12 High Flow Nasal Cannula 45 12/11/24 10:00 87 13 91 High Flow Nasal Cannula 12/11/24 10:00 132/75 12/11/24 08:03 86 22 92 High Flow Nasal Cannula 12/11/24 08:00 151/85 H 12/11/24 07:57 88 25 H 87 L High Flow Nasal Cannula 12/11/24 07:25 90 20 96 High Flow Nasal Cannula 45 12/11/24 06:40 80 12/11/24 06:00 81 14 96 12/11/24 06:00 132/77 12/11/24 06:00 132/77 12/11/24 05:15 87 18 92 12/11/24 04:09 82 14 95 12/11/24 03:00 76 15 97 12/11/24 02:30 74 18 97 High Flow Nasal Cannula 45 12/11/24 02:00 76 15 98 12/11/24 02:00 134/71 12/11/24 02:00 134/71 12/11/24 02:00 134/71 12/11/24 01:00 83 16 94 12/11/24 00:06 81 14 97 12/11/24 00:00 136/73 FiO2 12/11/24 11:12 75 12/11/24 10:00 12/11/24 10:00 12/11/24 08:03 12/11/24 08:00 12/11/24 07:57 12/11/24 07:25 75 12/11/24 06:40 12/11/24 06:00 12/11/24 06:00 12/11/24 06:00 12/11/24 05:15 12/11/24 04:09 12/11/24 03:00 12/11/24 02:30 75 12/11/24 02:00 12/11/24 02:00 12/11/24 02:00 12/11/24 02:00 12/11/24 01:00 12/11/24 00:06 12/11/24 00:00 PG Care Time/CCT Total # of Minutes Spent Total Time Spent with Patient: Total time spent is greater than 50% in coordination of care (as documented) at patient's floor/unit and/or counseling patient: Coding [place] [address] SUB INP/OBS CARE 2/35MIN Patient Type Established History Detailed Exam Detailed Medical Decision Making Moderate Complexity Diagnoses Acute hypoxic respiratory failure J96.01 Pneumocystis jiroveci pneumonia B59 Adenocarcinoma of right lung C34.91 Laterality: right Bilateral pulmonary embolism I26.99
--- NOTE | 2024-12-11 15:43 | Infectious Disease Progress Nt ---
Date of Service December 11, 2024 Assessment & Plan (1) Pneumocystis jiroveci pneumonia: (2) Pneumonitis: (3) Bilateral pulmonary infiltrates: Plan This is a 79-year-old male with a past medical history of non-small cell cancer of the right lung status post chemotherapy plus radiation, (chemotherapy stopped in 09/2024 secondary to cytopenias; last radiation 10/2024,plan to start immunotherapy),hypertension, hyperlipidemia, hypothyroidism, pulmonary hypertension, status post MVR, sp Port-A-Cath, esophageal varices presents to the ED on 11/29/24 w/worsening dyspnea that worsened with exertion. He endorsed a productive cough that was blood-tinged as well as B/L lower extremity edema. He denied fever chills. On admission he was afebrile, tachypneic, tachycardic and hypoxic. Labs notable for WBC of 1.52 (ANC 1.03), total bili 1.6, AST 60, ALT 48, CRP 11.33. Respir atory viral panel negative, beta D glucan less than 31 (negative)), Legionella antigen negative, creatinine 1.03, MRSA screen negative, procalcitonin 0.10. Initial CTA chest showed bilateral lower lobe pulmonary embolism: Interval increase in size of multifocal nodular opacities in the right lower lobe which could be inflammatory though bronchogenic carcinoma is also possible. Interval worsening of multifocal ground glass opacities which may be due to viral pneumonitis. Mild mediastinal and bilateral hilar adenopathy. Small pleural effusion. Initial chest x-ray showed stable interstitial and faint pulmonary opacities. Throughout his course chest x-ray showed progression of the bilateral airspace opacities and interstitial thickening. He was initially started on piperacillin/tazobactam, dexamethasone, azithromycin and heparin GTT. His course was complicated by increasing O2 requirements despite o 100% FiO2 with 60 L of oxygen. His O2 sats remained in the high 80s and low 90s. He was dyspneic with minimal movement. TMP-SMX was added for possible Pneumocystis Jirovecii infection. Serum beta D glucan was negative. Sputum culture grew Staphylococcus hemolyticus (penicillin and TMPSMX resistant). He was started on IV vancomycin and TMPSMX was discontinued. She was followed by pulmonary who felt that he was too high risk for bronchoscopy and it may be low yield. He was moved to the PCU. His prognosis was felt to be poor and it was thought that transitioning to comfort measures and hospice level of care would be appropriate. Patient is DNR /DNI but wanted all other aggressive measures to continue. He did not feel he was ready for comfort measures. He was evaluated by heme-onc and starting tocilizumab was considered given the possible inflammatory vs radiation related nature of the pneumonitis. Sputum PCR was sent for Pneumocystis jirovecii and finalized as positive. Infectious disease consulted for positive PJP PCR. He was restarted on TMPSMX An E consult without video evaluation completed as video/camera is not working. Microbiology 12/05 sputum culture Staphylococcus hemolyticus (sensitive to linezolid, vancomycin) 12/05 sputum + PJP PCR Antibiotics Ceftriaxone 12/02 - 12/03 Azithromycin 12/02 - 12/05 TMPSMX 12/04 - 12/05, 12/10current Vancomycin 12/06current # Worsening acute hypoxic respiratory failure # Non-small cell lung cancer, sp chemotherapy , radiation ( pending immunotherapy) # Pulmonary Embolism # Possible pneumonitis (chemo- induced versus radiation-induced l) # Left chest port in place # Positive Pneumocystis Jirovecii PCR on sputum culture, negative serum Beta D glucan # Positive staph hemolyticus on sputum culture # Elevated LDH 495-->848-->781. #S/P MVR Discussion: His worsening respiratory status is likely multifactorial in the setting of PE, lung adenocarcinoma, possible staph hemolyticus pneumonia, possible pneumonitis, possible PJP. Althought this sputum PCR is positive PJP and His LDH is elevated, Beta D glucan is negative He is currently on TMPSMX and IV vancomycin. 12/11 He remains hypoxic . On HFNC 45L/75%. Na 136, K + 3.9, cr 0.80 Recommendations Continue IV vancomycin per pharmacy protocol for 7 days for pneumonia ( 12/06- 12/13) Continue TMPSMX for 21 days ( 12/10-12/31) Will need to closely monitor K, Na, Cr on therapy. If significant side effects on Bactrim, will need to consider alternatives ( ie Atovaquone or primaquine+ Clinda) , Continue methylprednisolone with taper per pulmonary ( 21 day steroid taper for PJP is usually --> prednisone 40 mg po bid for 5 days, then 40 mg po daily for 5 days, then 20 mg PO daily for 11 days). Will defer to pulmonary and heme onc on steroid taper as he is also being treated for possible pneumonitis. Appreciate Pulmonary and Heme onc input Hue Doherty MD, MPH Infectious Disease [facility], [facility] Call [phone] with questions Admission and Anticipated Discharge Date Admission Date: November 29, 2024 Subjective This patient recommendation is based on a telemedicine consult request which was completed asynchronously through chart review and information provided by the primary physician. The patient was not seen or examined today. The evaluation is consultative in nature and all patient care and treatment decisions can either be accepted or rejected by the patient's primary hospital-based treating physician using their own independent medical judgment for their patient. Time Spent Reviewing Chart: 21 - 30 minutes Remains hypoxic on HFNC 45L /75% Results & Data Vital Signs (Past 12 Hours) Vital Signs Pulse Pulse Resp BP Pulse Ox O2 Del Method O2 Flow Rate 12/11/24 15:08 78 20 90 High Flow Nasal Cannula 45 12/11/24 14:06 82 23 90 High Flow Nasal Cannula 12/11/24 14:00 139/87 12/11/24 13:42 83 24 91 High Flow Nasal Cannula 12/11/24 12:18 90 26 H 94 High Flow Nasal Cannula 12/11/24 11:20 85 22 92 High Flow Nasal Cannula 45 12/11/24 11:12 High Flow Nasal Cannula 45 12/11/24 10:00 87 13 91 High Flow Nasal Cannula 12/11/24 10:00 132/75 12/11/24 08:03 86 22 92 High Flow Nasal Cannula 12/11/24 08:00 151/85 H 12/11/24 07:57 88 25 H 87 L High Flow Nasal Cannula 12/11/24 07:25 90 20 96 High Flow Nasal Cannula 45 12/11/24 06:40 80 12/11/24 06:00 81 14 96 12/11/24 06:00 132/77 12/11/24 06:00 132/77 12/11/24 05:15 87 18 92 12/11/24 04:09 82 14 95 FiO2 12/11/24 15:08 85 12/11/24 14:06 12/11/24 14:00 12/11/24 13:42 12/11/24 12:18 12/11/24 11:20 75 12/11/24 11:12 75 12/11/24 10:00 12/11/24 10:00 12/11/24 08:03 12/11/24 08:00 12/11/24 07:57 12/11/24 07:25 75 12/11/24 06:40 12/11/24 06:00 12/11/24 06:00 12/11/24 06:00 12/11/24 05:15 12/11/24 04:09 Laboratory Results Laboratory Results - last 48 hr 12/05/24 12/10/24 12/10/24 11:30 04:56 05:00 WBC 4.73 L RBC 3.19 L Hgb 9.5 L Hct 28.8 L MCV 90.3 MCH 29.8 MCHC 33.0 RDW Std Deviation 58.4 H RDW Coeff of Joesph 17.7 H Plt Count 144 MPV 10.2 Immature Gran % (Auto) 4.4 Neut % (Auto) 86.2 Lymph % (Auto) 4.7 [place] % (Auto) 4.7 Eos % (Auto) 0.0 Baso % (Auto) 0.0 Neut # (Auto) 4.08 Lymph # (Auto) 0.22 L [place] # (Auto) 0.22 Eos # (Auto) 0.00 Baso # (Auto) 0.00 Immature Gran # (Auto) 0.21 H Absolute Nucleated RBC 0.03 Nucleated RBC % (auto) 0.6 Polychromasia Heparin Anti-Xa, Unfract 0.59 Sodium 140 Potassium 3.7 Chloride 103 Carbon Dioxide 30 Anion Gap 7 BUN 36 H Creatinine 0.84 Est Cr Clr Drug Dosing 64.5 eGFR 87.61 BUN/Creatinine Ratio 42.9 H Glucose 146 H Calcium 8.6 Phosphorus 4.0 Magnesium 2.5 H Total Bilirubin 1.3 H AST 36 ALT 36 Alkaline Phosphatase 158 H Lactate Dehydrogenase 848 H Total Protein 6.0 Albumin 3.3 L Globulin 2.7 Albumin/Globulin Ratio 1.2 Stool Occult Bld Scrn Positive A Stl C. diff Tox B Gene Negative Cdiff Gene Stl C. diff 027-NAP1-BI NEGATIVE Random Vancomycin 18.8 Pneumocystis Source SPUTUM Pneumocyst jirovecii PCR DETECTED A 12/11/24 12/11/24 04:48 05:47 WBC 4.59 L RBC 3.07 L Hgb 8.9 L Hct 27.8 L MCV 90.6 MCH 29.0 MCHC 32.0 RDW Std Deviation 58.5 H RDW Coeff of Joesph 18.0 H Plt Count 133 MPV 9.8 Immature Gran % (Auto) 5.9 Neut % (Auto) 83.2 Lymph % (Auto) 3.9 [place] % (Auto) 6.8 Eos % (Auto) 0.0 Baso % (Auto) 0.2 Neut # (Auto) 3.82 Lymph # (Auto) 0.18 L [place] # (Auto) 0.31 Eos # (Auto) 0.00 Baso # (Auto) 0.01 Immature Gran # (Auto) 0.27 H Absolute Nucleated RBC 0.02 Nucleated RBC % (auto) 0.4 Polychromasia 1+ Heparin Anti-Xa, Unfract 0.53 Sodium 136 Potassium 3.9 Chloride 102 Carbon Dioxide 27 Anion Gap 7 BUN 28 H Creatinine 0.80 Est Cr Clr Drug Dosing 67.7 eGFR 88.91 BUN/Creatinine Ratio 35.0 H Glucose 131 H Calcium 8.2 L Phosphorus Magnesium Total Bilirubin AST ALT Alkaline Phosphatase Lactate Dehydrogenase 781 H Total Protein Albumin Globulin Albumin/Globulin Ratio Stool Occult Bld Scrn Stl C. diff Tox B Gene Stl C. diff [id number]-NAP1-BI Random Vancomycin Pneumocystis Source Pneumocyst jirovecii PCR Microbiology 12/05/24 11:30 Sputum, Expectorated Gram Stain - Final 12/05/24 11:30 Sputum, Expectorated Sputum Culture - Final Staphylococcus haemolyticus Diagnostic Findings Chest X-Ray 12/09/24 07:00 EXAM: XR chest 1V portable CLINICAL HISTORY: Follow-up pneumonia TECHNIQUE: An X-ray image of the chest was obtained in the AP projection. COMPARISON: 12-07-2024 CR. FINDINGS: Pulmonary Parenchyma: There is mild interval improvement in air space opacities and unchanged reticular shadowing in the left mid and lower zones. There are unchanged air space opacities and reticular shadowing in the right mid and lower zones. There is a new finding of blunting of the right CP angle, likely representing mild pleural effusion versus thickening. There is no evidence of left pleural effusion or pleural thickening. Heart and Mediastinum: Cardiomegaly is seen. There is no mediastinal widening or masses. There is no hilar or mediastinal lymphadenopathy. Bony Thorax: Sternotomy sutures are noted. The bony thorax appears intact without fractures or deformities. Soft Tissues: Soft tissues overlying the chest wall are unremarkable. IMPRESSION: 1. There is mild interval improvement in air space opacities and unchanged reticular shadowing in the left mid and lower zones. 2. There are unchanged air space opacities and reticular shadowing in the right mid and lower zones. 3. There is a new finding of blunting of the right CP angle, likely representing mild pleural effusion versus thickening. 4. Cardiomegaly is stable. Electronically signed by Yair Acevedo 12-09-2024 07:56 AM Medications Administered Home Medications Medication Instructions Recorded Confirmed Last Taken calcium polycarbophil 625 mg 625 mg PO BID 11/13/19 11/29/24 11/29/24 tablet (Fiber-Tabs) ferrous sulfate 325 mg (65 mg 325 mg PO QPM 11/13/19 11/29/24 11/28/24 iron) tablet (iron) multivitamin 1 tab PO QAM 03/31/22 11/29/24 11/29/24 latanoprost 0.005 % eye drops 1 drp OPR HS 01/11/24 11/29/24 11/28/24 atorvastatin 40 mg tablet 40 mg PO HS #90 tabs 03/11/24 11/29/24 11/28/24 esomeprazole magnesium 20 mg 20 mg PO QPM #90 caps 05/14/24 11/29/24 11/28/24 capsule,delayed release (Nexium 24HR) amoxicillin 500 mg capsule 2,000 mg (4 x 500 mg) PO .COMPLEX 05/15/24 11/29/24 08/08/24 #4 caps tamsulosin 0.4 mg capsule 0.8 mg (2 x 0.4 mg) PO QPM 07/01/24 11/29/24 11/28/24 frequency #180 caps aspirin 81 mg tablet,delayed 81 mg PO QAM 08/02/24 11/29/24 11/29/24 release tiotropium bromide 2.5 2 puff inhalation DAILY #4 grams 10/01/24 11/29/24 11/29/24 mcg/actuation mist for inhalation (Spiriva Respimat) mirabegron 50 mg tablet,extended 50 mg PO QPM #90 tabs 10/25/24 11/29/24 11/28/24 release 24 hr (Myrbetriq) metoprolol succinate 25 mg 25 mg PO QAM #90 tabs 11/07/24 11/29/24 11/29/24 tablet,extended release 24 hr levothyroxine 50 mcg tablet 50 mcg PO QAM #90 tabs 11/19/24 11/29/24 11/29/24 Active Medications Generic Name Dose Route Start Last Admin Trade Name Freq PRN Reason Stop Dose Admin Acetaminophen 650 mg 11/29/24 23:34 12/05/24 09:55 Acetaminophen 325 Mg Tab PO 12/29/24 23:33 650 mg Q4H PRN Administration Pain or Fever Al Hydrox/Mg Hydrox/Simethicone 15 ml 11/30/24 05:34 11/30/24 05:47 Aluminum/Magnesium Susp 30 Ml Udc PO 12/30/24 05:33 15 ml Q6H PRN Administration Heartburn Albuterol 3 ml 11/30/24 01:28 12/05/24 13:25 Albut/Ipratrop 3mg/0.5mg Neb 3 Ml Vial NEB 12/30/24 01:27 3 ml Q6R PRN Administration Shortness Of Breath Or Wheezing Protocol Aspirin 81 mg 11/30/24 09:00 12/11/24 08:26 Aspirin 81 Mg Ectab PO 12/30/24 08:59 81 mg QAM RITO Administration Atorvastatin Calcium 40 mg 11/29/24 23:34 12/10/24 20:11 Atorvastatin 40 Mg Tab PO 12/29/24 23:33 Not Given HS RITO Budesonide 0.5 mg 12/03/24 19:00 12/11/24 07:25 Budesonide 0.5 Mg/2 Ml Vial (Pulmicort) NEB 01/02/25 18:59 0.5 mg BIDR RITO Administration Formoterol Fumarate 20 mcg 12/03/24 19:00 12/11/24 07:25 Formoterol 20 Mcg/2 Ml Vial NEB 01/02/25 18:59 20 mcg BIDR RITO Administration Heparin Sodium/Dextrose 25,000 units in 500 mls @ 18 mls/hr 11/29/24 19:45 12/11/24 06:57 Heparin 32222 Unit/500 Ml D5w IV 12/29/24 19:44 900 units/hr .Q24H RITO 18 mls/hr Titration Protocol 900 UNITS/HR Pantoprazole Sodium 40 mg in 10 mls @ 5 mls/min 12/06/24 15:30 12/11/24 08:25 Protonix IV 01/05/25 15:29 5 mls/min DAILY RITO Administration Vancomycin HCl 1,500 mg/ 530 mls @ 200 mls/hr 12/10/24 15:00 12/11/24 15:36 Sodium Chloride IV 12/12/24 23:59 Infused Q18H RITO Infusion Trimethoprim/Sulfamethoxazole 520 mls @ 348.542 mls/hr 12/10/24 16:30 12/11/24 11:04 320 mg/ Dextrose IV 12/30/24 23:59 Infused Q8H RITO Infusion Methylprednisolone 30 mg/ 0.48 mls @ 0.667 mls/min 12/11/24 09:00 12/11/24 08:32 Syringe IV 01/10/25 08:59 Not Given Q12H RITO Latanoprost 1 drops 11/29/24 23:34 12/10/24 20:11 Latanoprost 0.005% Op Soln 2.5 Ml Btl OPR 12/29/24 23:33 1 drops HS RITO Administration Levothyroxine Sodium 50 mcg 12/10/24 06:30 12/11/24 06:39 Levothyroxine Sodium 50 Mcg Tablet PO 01/09/25 06:29 Not Given DAILYBB RITO Lorazepam 0.5 mg 12/06/24 08:38 12/07/24 20:58 Lorazepam 2 Mg/1 Ml Vial IV 01/05/25 08:37 0.5 mg Q8H PRN Administration Anxiety/Agitation Melatonin 3 mg 11/29/24 23:34 12/05/24 22:02 Melatonin 3 Mg Tab PO 12/29/24 23:33 3 mg HS PRN Administration Insomnia Menthol 1 candida 12/02/24 00:16 12/02/24 00:32 Cough Drop (Sugar Free) Candida 24 Candida/1 Box BUCCAL 01/01/25 00:15 1 candida Q2H PRN Administration Sore Throat Metoprolol Succinate 25 mg 11/30/24 09:00 12/11/24 08:26 Metoprolol Succ 25mg Ext Rel Tab PO 12/30/24 08:59 25 mg QAM RITO Administration Morphine Sulfate 1 mg 12/05/24 18:12 12/07/24 02:04 Morphine Sulfate 2 Mg/Ml Carp IV 12/19/24 18:11 1 mg Q4H PRN Administration Mod-Sev Pain (Scale 4-10) Multi-Ingredient Mouthwash/Gargle 5 ml 12/10/24 21:00 12/11/24 15:36 First - Mouthwash Blm 5 Ml Udp PO 01/09/25 20:59 Not Given QID RITO Nystatin 5 ml 12/08/24 13:00 12/11/24 15:36 Nystatin Susp 500,000 U/5 Ml Udc PO 12/18/24 12:59 Not Given QID RITO Ondansetron HCl 4 mg 11/29/24 23:34 12/06/24 16:56 Ondansetron Inj 2 Mg/Ml 2 Ml Vial IV 12/29/24 23:33 4 mg Q6H PRN Administration Nausea And Vomiting Pantoprazole Sodium 40 mg 11/30/24 09:00 12/06/24 11:02 Pantoprazole 40 Mg Tab PO 12/30/24 08:59 Not Given DAILY RITO Tamsulosin HCl 0.8 mg 11/29/24 23:34 12/10/24 20:12 Tamsulosin Hcl 0.4 Mg Cap PO 12/29/24 23:33 Not Given QPM RITO
[2024-12-11] MEDS: FLUTICASONE PROPIONATE NA SPR 16 GM BTL SCH (20:21)
[2024-12-12 05:41] LABS: ANTI-Xa, UFH(UnfractionatedHep 0.50 IU/ml (0.3-0.7)
--- NOTE | 2024-12-12 08:00 | XRay Report ---
EXAM: XR chest 1V portable CLINICAL HISTORY: F/u pna TECHNIQUE: An X-ray image of the chest was obtained in AP projection. COMPARISON: No prior studies are available for comparison. FINDINGS: The left portocath remains stable and well-positioned, with the tip located in the lower part of the superior vena cava. Pulmonary Parenchyma: There is mild interval worsening of patchy opacification with reticular shadowing in both mid and lower zones, mainly on the right side. There is stable blunting of the right costophrenic angle, likely representing mild pleural effusion versus pleural thickening. Heart and Mediastinum: The heart size and shape are normal. There is no mediastinal widening or mass. No hilar or mediastinal lymphadenopathy is seen. Bony Thorax: The bony thorax appears intact without fractures or deformities. Sternotomy wires are present due to a prior procedure. Soft Tissues: The soft tissues overlying the chest wall are unremarkable. IMPRESSION: 1. There is mild interval worsening of bilateral patchy infiltration and hazy reticulations in both middle and lower lung zones (more pronounced on the right side), which could be due to an acute infectious process; clinical correlation is needed. 2. Stable blunting of the right costophrenic angle could be due to minimal effusion or pleural thickening. Electronically signed by Yair Acevedo 12-12-2024 08:00 AM
[2024-12-12 08:15] LABS: Anion Gap 4.0 (3-11); Blood Urea Nitrogen 20.0 mg/dl (6-23); Calcium 7.9 mg/dl (8.6-10.3); Carbon Dioxide 26.0 mmol/L (21-32); Chloride 104.0 mmol/L (98-107); Creatinine Clr Calc Pharmacy 74.2 ml/min; Glucose 104.0 mg/dl (70-99(Fasting)); Potassium 4.3 mmol/L (3.5-5.1); Sodium 134.0 mmol/L (136-145)
[2024-12-12] MEDS ORDERED: FIRST - Mouthwash BLM 5 ML UDP PO PRN (08:28)
[2024-12-12 08:30] LABS: Hematocrit (blood only) 31.0 % (42.0-52.0); Hemoglobin 9.8 g/dl (14.0-18.0); Mean Corpuscular Hemoglobin 29.0 pg (25.0-34.0); Mean Corpuscular Volume 91.7 fL (80.0-100.0); Platelet Count 163 K/uL (130-400); RDW Standard Deviation 62.0 fL (36.4-46.3); Red Blood Count 3.38 M/uL (4.70-6.10); White Blood Count 8.20 K/ul (4.8-10.8)
[2024-12-12 08:46] LABS: Immature Granulocytes # (auto) 0.44 K/uL (0.01-0.20); Immature Granulocytes % (auto) 5.4 %
[2024-12-12] MEDS: FUROSEMIDE 40 MG/4 ML VIAL IV ONE (08:49)
--- NOTE | 2024-12-12 09:21 | Hospitalist Progress Note ---
Date of Service December 12, 2024 Assessment & Plan (1) Pneumocystis jiroveci pneumonia: (2) Pneumonitis: (3) Acute hypoxic respiratory failure: (4) Bilateral pulmonary embolism: (5) Atrial fibrillation with rapid ventricular response: (6) Adenocarcinoma of lung: (7) CAD (coronary artery disease): Plan 79yo male with lung cancer with metastatic disease to mediastinal lymph nodes, CAD s/p 2V CABG, porcine MVR, and maze procedure in March 2024, paroxysmal atrial fibrillation, COPD, HTN, Hyperlipidemia, hypothyroidism, GERD, presenting with two weeks of progressive SOB and LE edema. Patient hypoxic to 88% on room air on arrival. Bilateral pulmonary emboli and b/l groundglass infiltrates seen on CTA chest on 11/29/24. Since admission developed severe acute hypoxic respiratory failure and multifocal pneumonia. PJP from sputum returned positive this am, 12/10/24. #Acute hypoxic respiratory failure - severe, -multifactorial including b/l PEs, PJP infection, staph haemolyticus pneumonia, acute on chronic HFpEF, possible radiation pneumonitis, COPD -respiratory biofire negative 11/29 -COVID/flu/RSV negative 12/05 -legionella urine ag negative -he had been on broad-spectrum IV antibiotics and was diuresed earlier this admission; finished 5-day course of azithromycin previously -antibiotics ultimately narrowed to IV vancomycin for the staph pneumonia - last day of Rx 12/13 will complete 7d -briefly was on Bactrim earlier this admission, Bactrim resumed for PJP - 21 day course 12/10-12/31 with concomitant steroids -remains on high dose steroids - solumedrol 40mg q6h -remains on heparin infusion for b/l PEs -pulmonary and infectious disease consulting -hypoxia worse today - again maxed on noninvasive measures - HFO2 100%/60L plus facemask oxygen on top. Discussed with Dr. Ascencio - getting noncon chest CT, NPO, lasix 40 IV x1. Discussed with [employer] as well. #Atrial fibrillation with RVR -previous history of a.fib and underwent Maze procedure with his CABG and MVR in 03/2024 -rapid A-fib on AM of 12/04, spontaneously converted to NSR on 12/06 -echo with preserved EF, TSH wnl -cont metoprolol succinate 25mg daily -on heparin drip #Bilateral subsegmental pulmonary emboli - -Continue heparin drip -Ultimately will transition to Eliquis #Hyponatremia - -lowest Na level 127 -today's Na level 134 #Adenocarcinoma of the lung - IIIb. -s/p chemotherapy and XRT with pause in chemotherapy in September 2024 due to cytopenias -was planning to start immunotherapy in December -[facility] #antineoplastic chemotherapy induced pancytopenia - -s/p 1 unit PRBCs on 12/07 -recent B12/folate wnl -recent Fe panel c/w acute phase reactant -now just anemia. W 8, Hg 9.8, Plt normal. monitor CBC #CAD - -s/p CABG x 2V performed in March 2024 as well as mitral valve replacement with porcine valve and maze procedure -Echo 12/02 - preserved EF, bioprosthetic MV functioning well -Continue aspirin, atorvastatin, Metoprolol succ daily #Hypertension - -Continue Metoprolol succ #Hyperlipidemia -Continue Atorvastatin #Hypothyroidism - -TSH wnl -Continue Synthroid #Emphysema/COPD - -Continue nebs -Continue IV solumedrol #GERD -Continue Protonix IV #?thrush/sore throat - -nystatin 5ml QID swish/spit -magic mouthwash q6h prn #BPH - -cont flomax #DVT ppx - -heparin drip Admission and Anticipated Discharge Date Admission Date: November 29, 2024 Subjective Worse today - since overnight more hypoxic - on max from HFO2 plus facemask sats mid 80s Has been awake and responsive to questions Overnight had a few desats to high 70s that did come up after doses of morphine or ativan Physical Exam 2 Physical Exam: Last 24h vitals reviewed GEN: awake but eyes closed HEENT: pupils equal, sclerae anicteric, dry MM RESP: labored, tachypneic, no wheezing, scattered crackles bilaterally ant and post CV: reg, no murmur. obscured ABD: soft/nt/nd +BT : no luther SKIN: warm and dry, no generalized rashes EXT: wwp no peripheral edema NEURO: Alert, nods yes/no to questions, KAKTOVIK, follows commands Results & Data Results & Data Vital Signs (Past 12 Hours) Vital Signs Pulse Pulse Pulse Resp BP Pulse Ox O2 Del Method 12/12/24 04:09 95 H 24 85 L 12/12/24 03:06 90 19 83 L 12/12/24 03:00 144/82 H 12/12/24 02:54 98 H 19 82 L 12/12/24 02:54 87 113 H 16 87 L Oxymask, High Flow Nasal Cannula 12/12/24 02:33 90 22 87 L 12/12/24 01:01 161/87 H 12/12/24 01:00 117 H 25 H 77 L 12/12/24 00:36 91 H 17 91 Oxymask, High Flow Nasal Cannula 12/12/24 00:00 117 H 17 92 12/12/24 00:00 129/72 12/12/24 00:00 129/72 12/11/24 23:06 92 H 20 92 12/11/24 23:00 91 H 12/11/24 22:12 92 H 27 H 89 L 12/11/24 22:00 124/73 12/11/24 21:54 93 H 37 H 87 L O2 Flow Rate FiO2 12/12/24 04:09 12/12/24 03:06 12/12/24 03:00 12/12/24 02:54 12/12/24 02:54 60 100 12/12/24 02:33 12/12/24 01:01 12/12/24 01:00 12/12/24 00:36 60 100 12/12/24 00:00 12/12/24 00:00 12/12/24 00:00 12/11/24 23:06 12/11/24 23:00 12/11/24 22:12 12/11/24 22:00 12/11/24 21:54 Laboratory Results 12/12/24 04:59 12/12/24 04:59 Diagnostic Findings CXR - personally reviewed film - probably some increase in bilateral multifocal opacities, janice mid and lower lobes PG Care Time/CCT Total # of Minutes Spent Total Time Spent with Patient: Total time spent is greater than 50% in coordination of care (as documented) at patient's floor/unit and/or counseling patient: Coding Level of Care Code 48517 SUB INP/OBS CARE 3/50MIN Diagnoses Pneumocystis jiroveci pneumonia B59 Pneumonitis J98.4 Acute hypoxic respiratory failure J96.01 Bilateral pulmonary embolism I26.99 Atrial fibrillation with rapid ventricular response I48.91 Adenocarcinoma of right lung C34.91 Laterality: right CAD (coronary artery disease) I25.10 (6) Adenocarcinoma of lung Laterality: right Qualified Code(s): C34.91 - Malignant neoplasm of unspecified part of right bronchus or lung
[2024-12-12] MEDS: MoRPHine SULFATE 2 MG/ML CARP IV STA (09:42)
--- NOTE | 2024-12-12 09:47 | Pulmonology Progress Note ---
Date of Service December 12, 2024 Assessment & Plan (1) Acute hypoxic respiratory failure: (2) Pneumocystis jiroveci pneumonia: (3) Adenocarcinoma of lung: Laterality: right Qualified Code(s): C34.91 - Malignant neoplasm of unspecified part of right bronchus or lung (4) Bilateral pulmonary embolism: Plan Patient is an 79-year-old male with a history of right lung adenocarcinoma, paulina nary artery disease, CAD, pulmonary hypertension, emphysema, hypothyroidism, GERD, hypertension, esophageal varices, TMJ and vitamin D deficiency. The patient follows with Dr. Mcbride in the pulmonary clinic. Was being treated outpatient with chemotherapy in September and received radiation treatment in October. The patient presented to the hospital 11/30/2024 with shortness of breath and lower extremity edema. Imaging on arrival showed bilateral lower lobe subsegmental pulmonary emboli and increasing GGO's in bilateral lung christ[place]. The patient was started on anticoagulation. He continued to have worsening respiratory failure with hypoxia for which pulmonary was consulted. Echocardiogram did not show evidence of RV strain with the PE. He was started on antibiotics to cover for community-acquired pneumonia and started on Bactrim and IV steroids. The patient continued to be hypoxic and required maximum Optiflow of 60 L and 100%. Steroids were continued and the dose was increased. Antibiotics were broadened to Zosyn and vancomycin. Lasix were added and the patient was aggressively diuresed. The patient had hyponatremia after Bactrim therefore this was discontinued. Urine Legionella was negative therefore atypical coverage with azithromycin was stopped. Sputum culture grew Staphylococcus hemolyticus sensitive to vancomycin and linezolid. Oncology was consulted, due to concern for radiation pneumonitis the plan was to initiate a dose of tocilizumab. However sputum cultures are now showing positive pneumocystis jiroveci PCR therefore tocilizumab has been discontinued and the patient was started on Bactrim. The patient had slightly improved however when examined on 12/12/2024 he was found to be profoundly hypoxic requiring maximum Optiflow in addition to Ventimask and still satting only in the mid 80s. Inflammatory markers and LDH are climbing. Imaging with x-ray appears worse. Infectious workup: CRP: 11.3 on admission, decreased to 1.91, increased to 4.27 today. Viral PCR negative. Pneumocystis jiroveci PCR positive from sputum 12/05/2024 LDH elevated, [phone] Procalcitonin [id number] Beta D glucan level is low Urine culture with Klebsiella. Blood culture no growth to date. Sputum culture from 12/05/2024 with Staphylococcus hemolyticus sensitive to vancomycin and linezolid. Problem list: Acute hypoxic respiratory failure Staphylococcus haemolyticus pneumonia Pneumocystis jiroveci pneumonia Possible radiation pneumonitis Bilateral subsegmental PE Right lung adenocarcinoma Underlying emphysema Underlying pulmonary hypertension Hyponatremia Assessment: Imaging from admission showed diffuse GGO's, more significant on the right however still present on the left. The patient also was found to have subsegmental PEs. Differential diagnosis included pneumonitis from radiation or chemotherapy versus infectious etiology. Sputum cultures initially only grew Staphylococcus hemolyticus for which the patient was treated appropriately. PCR from his sputum has resulted now and is showing PJP pneumonia. His CT findings with the GGO's could very likely have been PJP initially rather than radiation pneumonitis. At this point I do not think his PEs are really contributing to his hypoxia. He has been anticoagulated appropriately. Echo did not show evidence of RV dysfunction. He has both staph and PJP pneumonia. Both of these are likely contributing to his profound hypoxia. The patient has taken an interval turn for the worse. Has more dense infiltrates. LDH is climbing which carries with it overall very poor prognosis. Recommendations/plan: Continue Optiflow. Wean for saturation of 88 to 92%. Profoundly hypoxic today. The patient needs to be NPO. Given the amount of high flow he is requiring he may be aspirating. If possible switching all of his medications to IV formula would be best. Patient has been on high-dose steroids with methylprednisolone, steroids were initiated on 12/03/2024. Given the immunocompromise state and respiratory failure I will continue steroids with the PJP pneumonia. Will do methylprednisolone 30 mg twice daily for 5 days, then decrease to once daily for 10 days and then decrease to 20 mg daily until his course of Bactrim is complete. Continue IV Bactrim for 21 days. The patient did have some hyponatremia previously when he had Bactrim therefore we will need to watch the sodium closely. Sodium is starting to slightly drop. Will likely have to add salt tabs or normal saline if he is not unable to take p.o. Given the severity of his illness I would prefer not to switch to alternative PJP treatment. Will trend LDH daily. Infectious diseases consulted. I will update them on the interval worsening of his status. Patient should remain on GI prophylaxis while on steroids. Continue to diurese to maintain euvolemia. Given additional 40 mg IV Lasix today. Currently on vancomycin for the staph pneumonia. To complete 1 week of therapy. I have ordered a stat CT chest to be done this morning. I will follow these results. We may have to broaden his antibiotics today. Patient remains critically ill with a generally poor prognosis. CODE STATUS is DNR/DNI. Plan was discussed with the patient in detail. Discussed extensively with bedside RN. Case discussed at length with hospitalist. Thank you for this consultation, I will continue to follow along with you. Admission and Anticipated Discharge Date Admission Date: November 29, 2024 Subjective Patient had interval worsening overnight. According to bedside RN the patient started becoming slightly more hypoxic yesterday afternoon. Overnight he desatted significantly. Optiflow was turned up to 100% and 60 L. Ventimask was placed over this with 15 L. The patient's saturation has not count above about 85% even with this. He is more tachypneic today. He says he was coughing up some phlegm last night. Says he feels short of breath. Having some anxiety last night and this morning. Difficulties getting him to take p.o. I advised that he be strict n.p.o. for now given his oxygen requirement. Review of Systems Review of Systems: Endorses shortness of breath. Endorses cough with phlegm production. Endorses anxiety. Physical Exam Physical Exam: Physical examination: General: Chronically ill-appearing, frail, resting in bed, moderate respiratory distress. HEENT: Normocephalic, atraumatic. Extraocular movements intact. Sclera are nonicteric. No JVD appreciated. Skin: Warm and dry. No rashes appreciated. No jaundice appreciated. Cardiovascular: Heart is a regular rate and rhythm, no murmurs appreciated on my exam. No significant lower extremity edema. Lungs: Coarse breath sounds, Rales appreciated at bilateral bases. Tachypneic. On Optiflow 60 L and 100% with additional Ventimask at 15 L satting 85 %. Abdomen: Nondistended, nontender to palpation. Musculoskeletal: Normal muscle mass and tone. No gross joint deformity abnormalities. No effusions appreciated. Neurologic: Awake and alert, oriented. CN II through XII are grossly intact. Speech is fluent. Nonfocal exam. Hard of hearing. Psychiatric: Appropriate cooperative during my exam. Results & Data Results & Data Vital Signs (Past 12 Hours) Vital Signs Pulse Pulse Pulse Resp BP Pulse Ox O2 Del Method 12/12/24 04:09 95 H 24 85 L 12/12/24 03:06 90 19 83 L 12/12/24 03:00 144/82 H 12/12/24 02:54 98 H 19 82 L 12/12/24 02:54 87 113 H 16 87 L Oxymask, High Flow Nasal Cannula 12/12/24 02:33 90 22 87 L 12/12/24 01:01 161/87 H 12/12/24 01:00 117 H 25 H 77 L 12/12/24 00:36 91 H 17 91 Oxymask, High Flow Nasal Cannula 12/12/24 00:00 117 H 17 92 12/12/24 00:00 129/72 12/12/24 00:00 129/72 12/11/24 23:06 92 H 20 92 12/11/24 23:00 91 H 12/11/24 22:12 92 H 27 H 89 L 12/11/24 22:00 124/73 12/11/24 21:54 93 H 37 H 87 L O2 Flow Rate FiO2 12/12/24 04:09 12/12/24 03:06 12/12/24 03:00 12/12/24 02:54 12/12/24 02:54 60 100 12/12/24 02:33 12/12/24 01:01 12/12/24 01:00 12/12/24 00:36 60 100 12/12/24 00:00 12/12/24 00:00 12/12/24 00:00 12/11/24 23:06 12/11/24 23:00 12/11/24 22:12 12/11/24 22:00 12/11/24 21:54 Laboratory Results LDH is climbing. Procalcitonin slightly up as well. ESR is normal but CRP is climbing as well. Mild increase in WBCs today. Mild hyponatremia. BNP is mildly elevated. Diagnostic Findings Chest x-ray was obtained today. Showing more dense infiltrates, most notably in the right upper lobe. Medications Administered Ordered 40 IV Lasix this morning. PG Care Time/CCT Total # of Minutes Spent Total Time Spent with Patient: Total time spent is greater than 50% in coordination of care (as documented) at patient's floor/unit and/or counseling patient: 60 minutes Coding [place] [address] SUB INP/OBS CARE 3/50MIN Patient Type Established History Comprehensive Exam Comprehensive Medical Decision Making High Complexity Diagnoses Acute hypoxic respiratory failure J96.01 Pneumocystis jiroveci pneumonia B59 Adenocarcinoma of right lung C34.91 Laterality: right Bilateral pulmonary embolism I26.99
[2024-12-12] MEDS: METOPROLOL TARTRATE 1 MG/ML VIAL IV SCH (10:09)
--- NOTE | 2024-12-12 10:13 | CT Scan Report ---
CT chest diagnostic wo con CT DOSE: 819.46 mGy.cm CLINICAL HISTORY: worsening hyopxia, concern for aspiration. TECHNIQUE: Multiaxial CT images of the chest were performed without contrast. A dose lowering techni que was utilized adhering to the principles of ALARA. COMPARISON STUDY: 11/29/2024 through 01/11/2024 FINDINGS: There is motion artifact due to difficulty breath holding. There is stable mild diffuse bro nchiectasis. There is bronchial wall thickening consistent with bronchitis. There is moderate emphyse ma. There are increased diffuse reticular, groundglass, and patchy pulmonary opacities consistent wit h bilateral pneumonia. There is a lung mass with mildly irregular margins at the lateral right lower lobe measuring 3 cm greatest axial dimension, stable. There is a small right pleural effusion which l barrios dependently, increased in size. No pneumothorax. There is moderate cardiomegaly with prominence of the pulmonary vasculature consistent with CHF. 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 There are diffuse coronary ar jhoan calcifications. There is stable mediastinal and hilar adenopathy measuring up to 2.5 cm at a sub carinal lymph node. There is a small hiatal hernia. There are diffuse thoracic spine degenerative emma nges. IMPRESSION: 1. CHF with small right pleural effusion. 2. Diffusely increased pulmonary opacities likely represent a combination of pneumonia and pulmonary edema. 3. Stable 3 cm right lower lobe mass. 4. Otherwise as described. ACT 112: Negative or not required by law. Electronically signed by: Jesu Morley M.D. 12/12/2024 10:12 AM
--- NOTE | 2024-12-12 10:30 | Infectious Disease Progress Nt ---
Date of Service December 12, 2024 Assessment & Plan (1) Pneumocystis jiroveci pneumonia: (2) Pneumonitis: (3) Bilateral pulmonary infiltrates: Plan This is a 79-year-old male with a past medical history of non-small cell cancer of the right lung status post chemotherapy plus radiation, (chemotherapy stopped in 09/2024 secondary to cytopenias; last radiation 10/2024,plan to start immunotherapy),hypertension, hyperlipidemia, hypothyroidism, pulmonary hypertension, status post MVR, sp Port-A-Cath, esophageal varices presents to the ED on 11/29/24 w/worsening dyspnea that worsened with exertion. He endorsed a productive cough that was blood-tinged as well as B/L lower extremity edema. He denied fever chills. On admission he was afebrile, tachypneic, tachycardic and hypoxic. Labs notable for WBC of 1.52 (ANC 1.03), total bili 1.6, AST 60, ALT 48, CRP 11.33. Respir atory viral panel negative, beta D glucan less than 31 (negative)), Legionella antigen negative, creatinine 1.03, MRSA screen negative, procalcitonin 0.10. Initial CTA chest showed bilateral lower lobe pulmonary embolism: Interval increase in size of multifocal nodular opacities in the right lower lobe which could be inflammatory though bronchogenic carcinoma is also possible. Interval worsening of multifocal ground glass opacities which may be due to viral pneumonitis. Mild mediastinal and bilateral hilar adenopathy. Small pleural effusion. Initial chest x-ray showed stable interstitial and faint pulmonary opacities. Throughout his course chest x-ray showed progression of the bilateral airspace opacities and interstitial thickening. He was initially started on piperacillin/tazobactam, dexamethasone, azithromycin and heparin GTT. His course was complicated by increasing O2 requirements despite o 100% FiO2 with 60 L of oxygen. His O2 sats remained in the high 80s and low 90s. He was dyspneic with minimal movement. TMP-SMX was added for possible Pneumocystis Jirovecii infection. Serum beta D glucan was negative. Sputum culture grew Staphylococcus hemolyticus (penicillin and TMPSMX resistant). He was started on IV vancomycin and TMPSMX was discontinued. She was followed by pulmonary who felt that he was too high risk for bronchoscopy and it may be low yield. He was moved to the PCU. His prognosis was felt to be poor and it was thought that transitioning to comfort measures and hospice level of care would be appropriate. Patient is DNR /DNI but wanted all other aggressive measures to continue. He did not feel he was ready for comfort measures. He was evaluated by heme-onc and starting tocilizumab was considered given the possible inflammatory vs radiation related nature of the pneumonitis. Sputum PCR was sent for Pneumocystis jirovecii and finalized as positive. Infectious disease consulted for positive PJP PCR. He was restarted on TMPSMX An E consult without video evaluation completed as video/camera is not working. Microbiology 12/05 sputum culture Staphylococcus hemolyticus (sensitive to linezolid, vancomycin) 12/05 sputum + PJP PCR Antibiotics Ceftriaxone 12/02 - 12/03 Azithromycin 12/02 - 12/05 TMPSMX 12/04 - 12/05, 12/10current Vancomycin 12/06current # Worsening acute hypoxic respiratory failure # Non-small cell lung cancer, sp chemotherapy , radiation ( pending immunotherapy) # Pulmonary Embolism # Possible pneumonitis (chemo- induced versus radiation-induced ) # Left chest port in place # Positive Pneumocystis Jirovecii PCR on sputum culture, negative serum Beta D glucan # Positive staph hemolyticus on sputum culture # Elevated LDH 495-->848-->781-->988. #S/P MVR Discussion: His worsening respiratory status is likely multifactorial in the setting of PE, lung adenocarcinoma, possible staph hemolyticus pneumonia, possible pneumonitis, possible PJP, CHF . Although this sputum PCR is positive PJP and His LDH is elevated, Beta D glucan is negative He is currently on TMPSMX and IV vancomycin. 12/11 He remains hypoxic . On HFNC 45L/75%. Na 136, K + 3.9, cr 0.80 12/12 His respiratory status has worsened- now on HFNC and ventimask. O2 sats were between 77-87%. On 100% fio2.. CRP increased to 4.27, LDH up to 988, Pro-Alessandro 0.21. There was concern that he may be aspirating. Recommended adding Zosyn. CT chest shows increased pulmonary opacities possibly combo pneumonia and pulmonary edema. CHF Recommendations -Given worsening respiratory status, c/f aspiration, ADD zosyn 4.5g Iv q 8 -Diurese given CT chest findings -Continue IV vancomycin per pharmacy protocol for 7 days for pneumonia ( 12/06- 12/13) -Continue TMPSMX for 21 days ( 12/10-12/31) Will need to closely monitor K, Na, Cr on therapy. If significant side effects on Bactrim, will need to consider alternatives ( ie Atovaquone or primaquine+ Clinda) , -Continue methylprednisolone with taper per pulmonary ( 21 day steroid taper for PJP is usually --> prednisone 40 mg po bid for 5 days, then 40 mg po daily for 5 days, then 20 mg PO daily for 11 days). Will defer to pulmonary and heme onc on steroid taper as he is also being treated for possible pneumonitis. - Ordered crypto serum and aspergillus antigen Discussed with pulmonary Hue Doherty MD, MPH Infectious Disease ID Connect [facility], ID Division Call [phone] with questions Admission and Anticipated Discharge Date Admission Date: November 29, 2024 Subjective This patient recommendation is based on a telemedicine consult request which was completed asynchronously through chart review and information provided by the primary physician. The patient was not seen or examined today. The evaluation is consultative in nature and all patient care and treatment decisions can either be accepted or rejected by the patient's primary hospital-based treating physician using their own independent medical judgment for their patient. Time Spent Reviewing Chart: 21 - 30 minutes His respiratory status has worsened- now on HFNC and ventimask. O2 sat were between 77-87%. on 100 % fio2 CRP increased to 4.27, LDH up to 988, Pro- Alessandro 0.21. There was concern that he may be aspirating. Recommended adding Zosyn. Discussed with pulmonary. Results & Data Vital Signs (Past 12 Hours) Vital Signs Pulse Pulse Pulse Resp BP Pulse Ox O2 Del Method 12/12/24 10:09 125 H 127/70 12/12/24 09:45 104 H 23 97 12/12/24 04:09 95 H 24 85 L 12/12/24 03:06 90 19 83 L 12/12/24 03:00 144/82 H 12/12/24 02:54 98 H 19 82 L 12/12/24 02:54 87 113 H 16 87 L Oxymask, High Flow Nasal Cannula 12/12/24 02:33 90 22 87 L 12/12/24 01:01 161/87 H 09/18/25 01:00 117 H 25 H 77 L 12/12/24 00:36 91 H 17 91 Oxymask, High Flow Nasal Cannula 12/12/24 00:00 117 H 17 92 12/12/24 00:00 129/72 12/12/24 00:00 129/72 12/11/24 23:06 92 H 20 92 12/11/24 23:00 91 H O2 Flow Rate FiO2 12/12/24 10:09 12/12/24 09:45 70 12/12/24 04:09 12/12/24 03:06 12/12/24 03:00 12/12/24 02:54 12/12/24 02:54 60 100 12/12/24 02:33 12/12/24 01:01 12/12/24 01:00 12/12/24 00:36 60 100 12/12/24 00:00 12/12/24 00:00 12/12/24 00:00 12/11/24 23:06 12/11/24 23:00 Laboratory Results Laboratory Results - last 48 hr 12/11/24 12/11/24 12/12/24 04:48 05:47 04:57 WBC 4.59 L RBC 3.07 L Hgb 8.9 L Hct 27.8 L MCV 90.6 MCH 29.0 MCHC 32.0 RDW Std Deviation 58.5 H RDW Coeff of Joesph 18.0 H Plt Count 133 MPV 9.8 Immature Gran % (Auto) 5.9 Neut % (Auto) 83.2 Lymph % (Auto) 3.9 Hill % (Auto) 6.8 Eos % (Auto) 0.0 Baso % (Auto) 0.2 Neut # (Auto) 3.82 Lymph # (Auto) 0.18 L Hill # (Auto) 0.31 Eos # (Auto) 0.00 Baso # (Auto) 0.01 Immature Gran # (Auto) 0.27 H Absolute Nucleated RBC 0.02 Nucleated RBC % (auto) 0.4 Polychromasia 1+ Echinocytes ESR Heparin Anti-Xa, Unfract 0.53 0.50 Sodium 136 Potassium 3.9 Chloride 102 Carbon Dioxide 27 Anion Gap 7 BUN 28 H Creatinine 0.80 Est Cr Clr Drug Dosing 67.7 eGFR 88.91 BUN/Creatinine Ratio 35.0 H Glucose 131 H Calcium 8.2 L Lactate Dehydrogenase 781 H C-Reactive Protein B-Natriuretic Peptide Procalcitonin 12/12/24 12/12/24 04:59 08:37 WBC 8.20 RBC 3.38 L Hgb 9.8 L Hct 31.0 L MCV 91.7 MCH 29.0 MCHC 31.6 L RDW Std Deviation 62.0 H RDW Coeff of Joesph 18.6 H Plt Count 163 MPV 10.4 Immature Gran % (Auto) 5.4 Neut % (Auto) 82.4 Lymph % (Auto) 4.4 Hill % (Auto) 7.6 Eos % (Auto) 0.0 Baso % (Auto) 0.2 Neut # (Auto) 6.76 H Lymph # (Auto) 0.36 L Hill # (Auto) 0.62 H Eos # (Auto) 0.00 Baso # (Auto) 0.02 Immature Gran # (Auto) 0.44 H Absolute Nucleated RBC 0.03 Nucleated RBC % (auto) 0.4 Polychromasia Echinocytes 1+ ESR 10 Heparin Anti-Xa, Unfract Sodium 134 L Potassium 4.3 Chloride 104 Carbon Dioxide 26 Anion Gap 4 BUN 20 Creatinine 0.73 Est Cr Clr Drug Dosing 74.2 eGFR 91.40 BUN/Creatinine Ratio 27.4 H Glucose 104 H Calcium 7.9 L Lactate Dehydrogenase 988 H C-Reactive Protein 4.27 H B-Natriuretic Peptide 186 H Procalcitonin 0.21 Microbiology 12/05/24 11:30 Sputum, Expectorated Gram Stain - Final 12/05/24 11:30 Sputum, Expectorated Sputum Culture - Final Staphylococcus haemolyticus Diagnostic Findings Chest X-Ray 12/12/24 07:00 EXAM: XR chest 1V portable CLINICAL HISTORY: F/u pna TECHNIQUE: An X-ray image of the chest was obtained in AP projection. COMPARISON: No prior studies are available for comparison. FINDINGS: The left portocath remains stable and well-positioned, with the tip located in the lower part of the superior vena cava. Pulmonary Parenchyma: There is mild interval worsening of patchy opacification with reticular shadowing in both mid and lower zones, mainly on the right side. There is stable blunting of the right costophrenic angle, likely representing mild pleural effusion versus pleural thickening. Heart and Mediastinum: The heart size and shape are normal. There is no mediastinal widening or mass. No hilar or mediastinal lymphadenopathy is seen. Bony Thorax: The bony thorax appears intact without fractures or deformities. Sternotomy wires are present due to a prior procedure. Soft Tissues: The soft tissues overlying the chest wall are unremarkable. IMPRESSION: 1. There is mild interval worsening of bilateral patchy infiltration and hazy reticulations in both middle and lower lung zones (more pronounced on the right side), which could be due to an acute infectious process; clinical correlation is needed. 2. Stable blunting of the right costophrenic angle could be due to minimal effusion or pleural thickening. Electronically signed by Yair Acevedo 12-12-2024 08:[address] 12/12/24 07:23 CT chest diagnostic wo con CT DOSE: 819.46 mGy.cm CLINICAL HISTORY: worsening hyopxia, concern for aspiration. TECHNIQUE: Multiaxial CT images of the chest were performed without contrast. A dose lowering technique was utilized adhering to the principles of ALARA. COMPARISON STUDY: 11/29/2024 through 01/11/2024 FINDINGS: There is motion artifact due to difficulty breath holding. There is stable mild diffuse bronchiectasis. There is bronchial wall thickening consistent with bronchitis. There is moderate emphysema. There are increased diffuse reticular, groundglass, and patchy pulmonary opacities consistent with bilateral pneumonia. There is a lung mass with mildly irregular margins at the lateral right lower lobe measuring 3 cm greatest axial dimension, stable. There is a small right pleural effusion which layers dependently, increased in size. No pneumothorax. There is moderate cardiomegaly with prominence of the pulmonary vasculature consistent with CHF. 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 There are diffuse coronary artery calcifications. There is stable mediastinal and hilar adenopathy measuring up to 2.5 cm at a subcarinal lymph node. There is a small hiatal hernia. There are diffuse thoracic spine degenerative changes. IMPRESSION: 1. CHF with small right pleural effusion. 2. Diffusely increased pulmonary opacities likely represent a combination of pneumonia and pulmonary edema. 3. Stable 3 cm right lower lobe mass. 4. Otherwise as described. ACT 112: Negative or not required by law. Electronically signed by: Jesu Morley M.D. 12/12/2024 10:12 AM Medications Administered Home Medications Medication Instructions Recorded Confirmed Last Taken calcium polycarbophil 625 mg 625 mg PO BID 08/11/29/24 11/29/24 tablet (Fiber-Tabs) ferrous sulfate 325 mg (65 mg 325 mg PO QPM 11/13/19 11/29/24 11/28/24 iron) tablet (iron) multivitamin 1 tab PO QAM 03/31/22 11/29/24 11/29/24 latanoprost 0.005 % eye drops 1 drp OPR HS 01/11/24 11/29/24 11/28/24 atorvastatin 40 mg tablet 40 mg PO HS #90 tabs 03/11/24 11/29/24 11/28/24 esomeprazole magnesium 20 mg 20 mg PO QPM #90 caps 05/14/24 11/29/24 11/28/24 capsule,delayed release (Nexium 24HR) amoxicillin 500 mg capsule 2,000 mg (4 x 500 mg) PO .COMPLEX 05/15/24 11/29/24 08/08/24 #4 caps tamsulosin 0.4 mg capsule 0.8 mg (2 x 0.4 mg) PO QPM 07/01/24 11/29/24 11/28/24 frequency #180 caps aspirin 81 mg tablet,delayed 81 mg PO QAM 08/02/24 11/29/24 11/29/24 release tiotropium bromide 2.5 2 puff inhalation DAILY #4 grams 10/01/24 11/29/24 11/29/24 mcg/actuation mist for inhalation (Spiriva Respimat) mirabegron 50 mg tablet,extended 50 mg PO QPM #90 tabs 10/25/24 11/29/24 11/28/24 release 24 hr (Myrbetriq) metoprolol succinate 25 mg 25 mg PO QAM #90 tabs 11/07/24 11/29/24 11/29/24 tablet,extended release 24 hr levothyroxine 50 mcg tablet 50 mcg PO QAM #90 tabs 11/19/24 11/29/24 11/29/24 Active Medications Generic Name Dose Route Start Last Admin Trade Name Freq PRN Reason Stop Dose Admin Acetaminophen 650 mg 11/29/24 23:34 12/05/24 09:55 Acetaminophen 325 Mg Tab PO 12/29/24 23:33 650 mg Q4H PRN Administration Pain or Fever Al Hydrox/Mg Hydrox/Simethicone 15 ml 11/30/24 05:34 11/30/24 05:47 Aluminum/Magnesium Susp 30 Ml Udc PO 12/30/24 05:33 15 ml Q6H PRN Administration Heartburn Albuterol 3 ml 11/30/24 01:28 12/05/24 13:25 Albut/Ipratrop 3mg/0.5mg Neb 3 Ml Vial NEB 12/30/24 01:27 3 ml Q6R PRN Administration Shortness Of Breath Or Wheezing Protocol Aspirin 81 mg 11/30/24 09:00 12/12/24 08:15 Aspirin 81 Mg Ectab PO 12/30/24 08:59 Not Given QAM RITO Atorvastatin Calcium 40 mg 11/29/24 23:34 12/11/24 20:22 Atorvastatin 40 Mg Tab PO 12/29/24 23:33 40 mg HS RITO Administration Budesonide 0.5 mg 12/03/24 19:00 12/12/24 07:35 Budesonide 0.5 Mg/2 Ml Vial (Pulmicort) NEB 01/02/25 18:59 0.5 mg BIDR RITO Administration Fluticasone Propionate 1 sprays 12/11/24 21:00 12/12/24 08:50 Fluticasone Propionate Na Spr 16 Gm Btl NA 01/10/25 20:59 1 sprays BID RITO Administration Formoterol Fumarate 20 mcg 12/03/24 19:00 12/12/24 07:35 Formoterol 20 Mcg/2 Ml Vial NEB 01/02/25 18:59 20 mcg BIDR RITO Administration Heparin Sodium/Dextrose 25,000 units in 500 mls @ 18 mls/hr 11/29/24 19:45 12/12/24 07:01 Heparin 35702 Unit/500 Ml D5w IV 12/29/24 19:44 900 units/hr .Q24H RITO 18 mls/hr Titration Protocol 900 UNITS/HR Pantoprazole Sodium 40 mg in 10 mls @ 5 mls/min 12/06/24 15:30 12/12/24 08:49 Protonix IV 01/05/25 15:29 5 mls/min DAILY RITO Administration Vancomycin HCl 1,500 mg/ 530 mls @ 200 mls/hr 12/10/24 15:00 12/12/24 05:05 Sodium Chloride IV 12/12/24 23:59 Infused Q18H RITO Infusion Trimethoprim/Sulfamethoxazole 520 mls @ 348.542 mls/hr 12/10/24 16:30 12/12/24 10:25 320 mg/ Dextrose IV 12/30/24 23:59 Infused Q8H RITO Infusion Methylprednisolone 30 mg/ 0.48 mls @ 0.667 mls/min 12/11/24 09:00 12/12/24 0 8:49 Syringe IV 01/10/25 08:59 0.667 mls/min Q12H RITO Administration Latanoprost 1 drops 11/29/24 23:34 12/11/24 20:21 Latanoprost 0.005% Op Soln 2.5 Ml Btl OPR 12/29/24 23:33 1 drops HS RITO Administration Levothyroxine Sodium 50 mcg 12/10/24 06:30 12/12/24 06:17 Levothyroxine Sodium 50 Mcg Tablet PO 01/09/25 06:29 50 mcg DAILYBB RITO Administration Lorazepam 0.5 mg 12/06/24 08:38 12/12/24 09:35 Lorazepam 2 Mg/1 Ml Vial IV 01/05/25 08:37 0.5 mg Q8H PRN Administration Anxiety/Agitation Melatonin 3 mg 11/29/24 23:34 12/05/24 22:02 Melatonin 3 Mg Tab PO 12/29/24 23:33 3 mg HS PRN Administration Insomnia Metoprolol Succinate 25 mg 11/30/24 09:00 12/12/24 08:15 Metoprolol Succ 25mg Ext Rel Tab PO 12/30/24 08:59 Not Given QAM RITO Metoprolol Tartrate 2.5 mg 12/12/24 09:00 12/12/24 10:09 Metoprolol Tartrate 1 Mg/Ml Vial IV 01/11/25 08:59 2.5 mg Q6H RITO Administration Morphine Sulfate 1 mg 12/05/24 18:12 12/12/24 06:30 Morphine Sulfate 2 Mg/Ml Carp IV 12/19/24 18:11 1 mg Q4H PRN Administration Mod-Sev Pain (Scale 4-10) Nystatin 5 ml 12/08/24 13:00 12/12/24 08:16 Nystatin Susp 500,000 U/5 Ml Udc PO 12/18/24 12:59 Not Given QID RITO Ondansetron HCl 4 mg 11/29/24 23:34 12/06/24 16:56 Ondansetron Inj 2 Mg/Ml 2 Ml Vial IV 12/29/24 23:33 4 mg Q6H PRN Administration Nausea And Vomiting Pantoprazole Sodium 40 mg 11/30/24 09:00 12/06/24 11:02 Pantoprazole 40 Mg Tab PO 12/30/24 08:59 Not Given DAILY [facility] Tamsulosin HCl 0.8 mg 11/29/24 23:34 12/11/24 20:22 Tamsulosin Hcl 0.4 Mg Cap PO 12/29/24 23:33 0.8 mg QPM RITO Administration
[2024-12-12] MEDS: PIPERACILLIN/TAZOBACTAM 4.5 GM/100 ML BAG IV ONE (11:00)
[2024-12-12] MEDS: PIPERACILLIN/TAZOBACTAM 4.5 GM/100 ML BAG IV SCH (15:54)
--- NOTE | 2024-12-12 17:18 | Communication Note ---
Date of Service: December 12, 2024 I updated Benigno's daughter extensively at bedside this afternoon. He is doing better than this AM - sats have been good while on NIV, had incontinence but large UOP after lasix this AM. Currently sleeping after some morphine.
[2024-12-13 05:25] LABS: Hematocrit (blood only) 27.3 % (42.0-52.0); Hemoglobin 8.8 g/dl (14.0-18.0); Mean Corpuscular Hemoglobin 29.4 pg (25.0-34.0); Mean Corpuscular Volume 91.3 fL (80.0-100.0); Platelet Count 118 K/uL (130-400); RDW Standard Deviation 60.6 fL (36.4-46.3); Red Blood Count 2.99 M/uL (4.70-6.10); White Blood Count 6.32 K/ul (4.8-10.8)
[2024-12-13 05:33] LABS: Anion Gap 5.0 (3-11); Blood Urea Nitrogen 19.0 mg/dl (6-23); Calcium 8.0 mg/dl (8.6-10.3); Carbon Dioxide 24.0 mmol/L (21-32); Chloride 103.0 mmol/L (98-107); Creatinine Clr Calc Pharmacy 66.9 ml/min; Glucose 131.0 mg/dl (70-99(Fasting)); Potassium 4.3 mmol/L (3.5-5.1); Sodium 132.0 mmol/L (136-145)
[2024-12-13 05:40] LABS: ANTI-Xa, UFH(UnfractionatedHep 0.31 IU/ml (0.3-0.7)
[2024-12-13 06:33] LABS: Immature Granulocytes # (auto) 0.20 K/uL (0.01-0.20); Immature Granulocytes % (auto) 3.2 %; RBC Morphology Unremarkable
--- NOTE | 2024-12-13 07:44 | Hospitalist Progress Note ---
Date of Service December 13, 2024 Assessment & Plan (1) Pneumocystis jiroveci pneumonia: (2) Pneumonitis: (3) Acute hypoxic respiratory failure: (4) Bilateral pulmonary embolism: (5) Atrial fibrillation with rapid ventricular response: (6) Adenocarcinoma of lung: (7) CAD (coronary artery disease): Plan 79yo male with lung cancer with metastatic disease to mediastinal lymph nodes, CAD s/p 2V CABG, porcine MVR, and maze procedure in March 2024, paroxysmal atrial fibrillation, COPD, HTN, Hyperlipidemia, hypothyroidism, GERD, presenting with two weeks of progressive SOB and LE edema. Patient hypoxic to 88% on room air on arrival. Bilateral pulmonary emboli and b/l groundglass infiltrates seen on CTA chest on 11/29/24. Since admission developed severe acute hypoxic respiratory failure and multifocal pneumonia. PJP from sputum returned positive this am, 12/10/24. #Acute hypoxic respiratory failure - severe, worsening now dependent on CPAP at high FiO2 last 24h. Remains critically ill and highly medically complex. -multifactorial including b/l PEs, PJP infection, staph haemolyticus pneumonia, acute on chronic HFpEF, possible radiation pneumonitis, COPD -respiratory biofire negative 11/29 -COVID/flu/RSV negative 12/05 -legionella urine ag negative -see pending labs per ID above -he had been on broad-spectrum IV antibiotics and was diuresed earlier this admission; finished 5-day course of azithromycin previously -completed 7 days of vancomycin on 12/13 for possible staph haemolyticus pneumonia -briefly was on Bactrim earlier this admission, Bactrim resumed for PJP - 21 day course 12/10-12/31 with concomitant steroids -pip-tazo added 12/12 for possible aspiration -remains on IV steroids - solumedrol 30 IV q 12h -voriconazole started 12/13 -pulmonary and infectious disease consulting. discussed several times with Dr. Ascencio today, reviewed recs in ID note -has continued to clinically worsen, now CPAP dependent past 24h (quickly decompensated today when CPAP briefly removed for trial of HFO2), temp, LDH, CRP all rising. I discussed with his today that he's continued to worsen despite all efforts and we are basically throwing the 'kitchen sink' at him at this point. He is also struggling/suffering a lot because of dyspnea. # acute toxic/metabolic encephalopathy - related to severe hypoxia, critical illness, medications needed for comfort (morphine, lorazepam). abg today without hypercarbia. ammonia normal. Is responsive. #Atrial fibrillation with RVR -previous history of stephon and underwent Maze procedure with his CABG and MVR in 03/2024 -echo with preserved EF, TSH wnl -continues in/out of afib, continue metoprolol 2.5 mg IV q6h and added PRN dose #Bilateral subsegmental pulmonary emboli - -Continue heparin drip -thrombocytopenic again, probably from infection however caution for HIT. Monitor platelets and for signs of thrombosis. #Hyponatremia - -lowest Na level 127 -today's Na level 132, IV saline started, monitor BMP #Adenocarcinoma of the lung - IIIb. -s/p chemotherapy and XRT with pause in chemotherapy in September 2024 due to cytopenias -was planning to start immunotherapy in December -primary oncologist - [facility] #antineoplastic chemotherapy induced pancytopenia - -s/p 1 unit PRBCs on 12/07 -recent B12/folate wnl -recent Fe panel c/w acute phase reactant -now just anemia. W 6, Hg 8, Plt 118. monitor CBC #CAD #Hypertension #Hyperlipidemia -s/p CABG x 2V performed in March 2024 as well as mitral valve replacement with porcine valve and maze procedure -Echo 12/02 - preserved EF, bioprosthetic MV functioning well -oral meds held - aspirin, atorvastatin, Metoprolol succ daily #Hypothyroidism - -TSH wnl -NPO so levothyroxine held, IV if prolonged hold #Emphysema/COPD - -Continue nebs -Continue IV solumedrol #GERD -Continue Protonix IV #BPH - -resume flomax if taking po #DVT ppx - -heparin drip Admission and Anticipated Discharge Date Admission Date: November 29, 2024 Subjective CPAP 60% FiO2 with good O2 sats Very dyspneic, some altered mental status today however is highly symptomatic of dyspnea and anxiety unless getting some lorazepam and morphine Physical Exam 2 Physical Exam: Last 24h vitals reviewed GEN: awake wearing CPAP HEENT: pupils equal, sclerae anicteric, dry MM RESP: labored, got very tachypneic in 30s once aroused, no wheezing, scattered crackles bilaterally ant and post CV: reg, no murmur. obscured ABD: soft/nt/nd +BT : no luther SKIN: warm and dry, no generalized rashes EXT: wwp no peripheral edema NEURO: Alert once aroused, nods yes/no to questions, [place], follows commands Results & Data Results & Data Vital Signs (Past 12 Hours) Vital Signs Pulse Pulse Resp BP BP Pulse Ox O2 Del Method 12/13/24 07:16 95 H 22 97 12/13/24 07:16 95 H 22 97 CPAP 12/13/24 03:05 88 117/75 12/13/24 02:52 103 H 26 H 91 12/13/24 02:46 100 H 22 132/73 92 CPAP 12/13/24 01:00 138/70 12/13/24 00:48 94 H 22 94 12/13/24 00:00 120 H 23 91 12/13/24 00:00 127/85 12/13/24 00:00 127/85 12/13/24 00:00 127/85 12/12/24 23:23 93 H 25 H 91 12/12/24 23:15 95 H 23 91 12/12/24 23:00 124/83 12/12/24 23:00 124/83 12/12/24 22:54 92 H 19 90 12/12/24 22:00 114/63 12/12/24 22:00 114/63 12/12/24 22:00 114/63 12/12/24 22:00 90 20 90 12/12/24 21:02 85 113/65 12/12/24 21:00 113/65 12/12/24 21:00 86 21 92 12/12/24 21:00 92 H 23 93 12/12/24 21:00 92 H 23 93 CPAP 12/12/24 20:09 93 H 21 93 12/12/24 20:00 128/61 12/12/24 19:54 91 H 20 93 FiO2 12/13/24 07:16 60 12/13/24 07:16 60 12/13/24 03:05 12/13/24 02:52 50 12/13/24 02:46 12/13/24 01:00 12/13/24 00:48 12/13/24 00:00 12/13/24 00:00 12/13/24 00:00 12/13/24 00:00 12/12/24 23:23 50 12/12/24 23:15 12/12/24 23:00 12/12/24 23:00 12/12/24 22:54 12/12/24 22:00 12/12/24 22:00 12/12/24 22:00 12/12/24 22:00 12/12/24 21:02 12/12/24 21:00 12/12/24 21:00 12/12/24 21:00 50 12/12/24 21:00 50 12/12/24 20:09 12/12/24 20:00 12/12/24 19:54 Laboratory Results 12/13/24 04:43 12/13/24 04:43 LDH 1000 Plt 118 CRP 1.9-->4.27-->16 Labs pending: crypto serum and aspergillus antigen Ordered histoplasma urinary antigen repeat fungitell ( B d glucan) Legionella sputum Culture blood cultures 12/13 PG Care Time/CCT Total # of Minutes Spent Total Time Spent with Patient: Total time spent is greater than 50% in coordination of care (as documented) at patient's floor/unit and/or counseling patient: Coding Level of Care Code 96777 SUB INP/OBS CARE 350MIN Diagnoses Pneumocystis jiroveci pneumonia B59 Pneumonitis J98.4 Acute hypoxic respiratory failure J96.01 Bilateral pulmonary embolism I26.99 Atrial fibrillation with rapid ventricular response I48.91 Adenocarcinoma of right lung C34.91 Laterality: right CAD (coronary artery disease) I25.10 (6) Adenocarcinoma of lung Laterality: right Qualified Code(s): C34.91 - Malignant neoplasm of unspecified part of right bronchus or lung
[2024-12-13] MEDS: HEPARIN 100 UNIT/ML 5ML FLUSH FLUSH PRN (08:10)
[2024-12-13] MEDS: FUROSEMIDE 40 MG/4 ML VIAL IV ONE ×2 (08:10→09:27)
--- NOTE | 2024-12-13 08:12 | XRay Report ---
XR chest 1V portable CLINICAL HISTORY: f/u COMPARISON STUDY: 12/12/2024 FINDINGS: Stable CABG and chest port. Stable mild cardiomegaly with mild pulmonary vascular congestio n. Stable diffuse interstitial and patchy pulmonary opacities. Stable mild elevation of the right hem idiaphragm. No pneumothorax. IMPRESSION: Stable exam. ACT 112: Negative or not required by law. Electronically signed by: Jesu Morley M.D. 12/13/2024 8:11 AM
--- NOTE | 2024-12-13 09:49 | Pulmonology Progress Note ---
Date of Service December 13, 2024 Assessment & Plan (1) Acute hypoxic respiratory failure: (2) Pneumocystis jiroveci pneumonia: (3) Adenocarcinoma of lung: Laterality: right Qualified Code(s): C34.91 - Malignant neoplasm of unspecified part of right bronchus or lung (4) Bilateral pulmonary embolism: (5) AMS (altered mental status): Plan Patient is an 79-year-old male with a history of right lung adenocarcinoma, coronary artery disease, CAD, pulmonary hypertension, emphysema, hypothyroidism, GERD, hypertension, esophageal varices, TMJ and vitamin D deficiency. The patient follows with Dr. Mcbride in the pulmonary clinic. Was being treated outpatient with chemotherapy in September and received radiation treatment in October. The patient presented to the hospital 11/30/2024 with shortness of breath and lower extremity edema. Imaging on arrival showed bilateral lower lobe subsegmental pulmonary emboli and increasing GGO's in bilateral lung [place]. The patient was started on anticoagulation. He continued to have worsening respiratory failure with hypoxia for which pulmonary was consulted. Echocardiogram did not show evidence of RV strain with the PE. He was started on antibiotics to cover for community-acquired pneumonia and started on Bactrim and IV steroids. The patient continued to be hypoxic and required maximum Optiflow of 60 L and 100%. Steroids were continued and the dose was increased. Antibiotics were broadened to Zosyn and vancomycin. Lasix were added and the patient was aggressively diuresed. The patient had hyponatremia after Bactrim therefore this was discontinued. Urine Legionella was negative therefore atypical coverage with azithromycin was stopped. Sputum culture grew Staphylococcus hemolyticus sensitive to vancomycin and linezolid. Oncology was consulted, due to concern for radiation pneumonitis the plan was to initiate a dose of tocilizumab. However sputum cultures are now showing positive pneumocystis jiroveci PCR therefore tocilizumab has been discontinued and the patient was started on Bactrim. The patient had slightly improved however when examined on 12/12/2024 he was found to be profoundly hypoxic requiring maximum Optiflow in addition to Ventimask and still satting only in the mid 80s. Inflammatory markers and LDH are climbing. Imaging with x-ray appears worse. Infectious workup: CRP: 11.3 on admission, decreased to 1.91, increased to 4.27 and now 16.44 today. Viral PCR negative. Has had multiple COVID and flu tests that are negative. Pneumocystis jiroveci PCR positive from sputum 12/05/2024 LDH elevated, [phone] Procalcitonin [id number] Beta D glucan level is low. Legionella is negative. Urine culture with Klebsiella. Blood culture no growth to date. Sputum culture from 12/05/2024 with Staphylococcus hemolyticus sensitive to vancomycin and linezolid. Repeat galactomannan is pending. Cryptococcal Ag is pending. HIV pending. 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 The patient also was found to have subsegmental PEs. Differential diagnosis included pneumonitis from radiation or chemotherapy versus infectious etiology. Sputum cultures initially only grew Staphylococcus hemolyticus for which the patient was treated appropriately. PCR from his sputum has resulted now and is showing PJP pneumonia. His CT findings with the GGO's could very likely have been PJP initially rather than radiation pneumonitis. At this point I do not think his PEs are really contributing to his hypoxia. He has been anticoagulated appropriately. Echo did not show evidence of RV dysfunction. He has both staph and PJP pneumonia. Both of these are likely contributing to his profound hypoxia. The patient has taken an interval turn for the worse. Has more dense infiltrates and diffuse GGO with traction bronchiectasis. Small effusion. LDH is climbing which carries with it overall very poor prognosis. Has been relying on CPAP for >24 hours now. Recommendations/plan: Continue CPAP. Wean for saturation of 88 to 92%. Remains NPO. If possible switching all of his medications to IV formula would be best. Patient has been on high-dose steroids with methylprednisolone, steroids were initiated on 12/03/2024. Given the immunocompromise state and respiratory failure I will continue steroids with the PJP pneumonia. Will do methylprednisolone 30 mg twice daily for 5 days, then decrease to once daily for 10 days and then decrease to 20 mg daily until his course of Bactrim is complete. Continue IV Bactrim for 21 days. The patient did have some hyponatremia previously when he had Bactrim therefore we will need to watch the sodium closely. Sodium is starting to slightly drop. Will likely have normal saline as he is not unable to take p.o. Given the severity of his illness I would prefer not to switch to alternative PJP treatment. Will trend LDH daily. Infectious diseases consulted. Patient should remain on GI prophylaxis while on steroids. Continue to diurese to maintain euvolemia. Given additional 40 mg IV Lasix today. May need more lasix with IVF. Currently on vancomycin for the staph pneumonia. Zosyn added back 12/12. Checking abg and ammonia for AMS. Patient remains critically ill with a generally poor prognosis. CODE STATUS is DNR/DNI. Discussed extensively with bedside RN. Case discussed at length with hospitalist. Thank you for this consultation, I will continue to follow along with you. Admission and Anticipated Discharge Date Admission Date: November 29, 2024 Subjective Patient overall looking worse today, has been on CPAP for the past 24 hours. More sleepy this AM. Satting 91% on CPAP 8 and 60%. No family at bedside this AM. Patient falls to sleep and doesnt answer questions this AM. Review of Systems Review of Systems: Not able to obtain due to AMS. Physical Exam Physical Exam: Physical examination: General: Chronically ill-appearing, frail, resting in bed, moderate respiratory distress. HEENT: Normocephalic, atraumatic. No JVD appreciated. CPAP in place. Skin: Warm and dry. No rashes appreciated. No jaundice appreciated. Cardiovascular: HSinus tachycardia, no murmurs appreciated on my exam. No significant lower extremity edema. Lungs: Coarse breath sounds, Rales appreciated at bilateral bases. Tachypneic. On CPAP of 8 with 60% and saturation of 91%. Abdomen: Nondistended, nontender to palpation. Musculoskeletal: Normal muscle mass and tone. No gross joint deformity abnormalities. No effusions appreciated. Neurologic: Sleepy this am. Results & Data Results & Data Vital Signs (Past 12 Hours) Vital Signs Temp Pulse Pulse Resp BP BP Pulse Ox 12/13/24 08:14 37.2 C 103 H 26 H 144/78 H 95 12/13/24 07:16 95 H 22 97 12/13/24 07:16 95 H 22 97 12/13/24 03:05 88 117/75 12/13/24 02:52 103 H 26 H 91 12/13/24 02:46 100 H 22 132/73 92 09/19/25 01:00 138/70 12/13/24 00:48 94 H 22 94 12/13/24 00:00 120 H 23 91 12/13/24 00:00 127/85 12/13/24 00:00 127/85 12/13/24 00:00 127/85 12/12/24 23:23 93 H 25 H 91 12/12/24 23:15 95 H 23 91 12/12/24 23:00 124/83 12/12/24 23:00 124/83 12/12/24 22:54 92 H 19 90 12/12/24 22:00 114/63 12/12/24 22:00 114/63 12/12/24 22:00 114/63 12/12/24 22:00 90 20 90 O2 Del Method FiO2 12/13/24 08:14 CPAP 60 12/13/24 07:16 60 12/13/24 07:16 CPAP 60 12/13/24 03:05 12/13/24 02:52 50 12/13/24 02:46 CPAP 12/13/24 01:00 12/13/24 00:48 12/13/24 00:00 12/13/24 00:00 12/13/24 00:00 12/13/24 00:00 12/12/24 23:23 50 12/12/24 23:15 12/12/24 23:00 12/12/24 23:00 12/12/24 22:54 12/12/24 22:00 12/12/24 22:00 12/12/24 22:00 12/12/24 22:00 PG Care Time/CCT Total # of Minutes Spent Total Time Spent with Patient: Total time spent is greater than 50% in coordination of care (as documented) at patient's floor/unit and/or counseling patient: Coding [place] [address] SUB INP/OBS CARE 3/50MIN Patient Type Established History Detailed Exam Detailed Medical Decision Making High Complexity Diagnoses Acute hypoxic respiratory failure J96.01 Pneumocystis jiroveci pneumonia B59 Adenocarcinoma of right lung C34.91 Laterality: right Bilateral pulmonary embolism I26.99 AMS (altered mental status) R41.82
[2024-12-13 10:31] LABS: HCO3 ABG 21 mmol/L (19-24); Oxygen Saturation ABG 98.8 % (90-95); PCO2 ABG 31 mmHg (35-46); PO2 ABG 85 mmHg (80-95)
[2024-12-13 10:33] LABS: Allen Test Pos (Pos)
[2024-12-13 11:40] LABS: Chlamydia pneumoniae PCR Not Detected (NotDetected); Coronavirus 229E PCR Not Detected (NotDetected); Coronavirus CoV-2 (COVID19)PCR Not Detected (NotDetected); Coronavirus HKU1 PCR Not Detected (NotDetected); Coronavirus NL63 PCR Not Detected (NotDetected); Coronavirus OC43PCR Not Detected (NotDetected); Human Metapneumovirus PCR Not Detected (NotDetected); Parainfluenza Virus 1 PCR Not Detected (NotDetected); Parainfluenza Virus 2 PCR Not Detected (NotDetected); Parainfluenza Virus 3 PCR Not Detected (NotDetected); Parainfluenza Virus 4 PCR Not Detected (NotDetected); Respiratory Syncytial VirusPCR Not Detected (NotDetected); Rhinovirus/Enterovirus PCR Not Detected (NotDetected)
[2024-12-13] MEDS ORDERED: ACETAMINOPHEN 1,000 MG/100 ML VIAL IV PRN (12:31)
--- NOTE | 2024-12-13 14:39 | Infectious Disease Progress Nt ---
Date of Service December 13, 2024 Assessment & Plan (1) Pneumocystis jiroveci pneumonia: (2) Pneumonitis: (3) Bilateral pulmonary infiltrates: Plan This is a 79-year-old male with a past medical history of non-small cell cancer of the right lung status post chemotherapy plus radiation, (chemotherapy stopped in 09/2024 secondary to cytopenias; last radiation 10/2024,plan to start immunotherapy),hypertension, hyperlipidemia, hypothyroidism, pulmonary hypertension, status post MVR, sp Port-A-Cath, esophageal varices presents to the ED on 11/29/24 w/worsening dyspnea that worsened with exertion. He endorsed a productive cough that was blood-tinged as well as B/L lower extremity edema. He denied fever, chills. On admission he was afebrile, tachypneic, tachycardic and hypoxic. Labs notable for WBC of 1.52 (ANC 1.03), total bili 1.6, AST 60, ALT 48, CRP 11.33. Respi ratory viral panel negative, beta D glucan less than 31 (negative)), Legionella antigen negative, creatinine 1.03, MRSA screen negative, procalcitonin 0.10. Initial CTA chest showed bilateral lower lobe pulmonary embolism: Interval increase in size of multifocal nodular opacities in the right lower lobe which could be inflammatory though bronchogenic carcinoma is also possible. Interval worsening of multifocal ground glass opacities which may be due to viral pneumonitis. Mild mediastinal and bilateral hilar adenopathy. Small pleural effusion. Initial chest x-ray showed stable interstitial and faint pulmonary opacities. Throughout his course chest x-ray showed progression of the bilateral airspace opacities and interstitial thickening. He was initially started on piperacillin/tazobactam, dexamethasone, azithromycin and heparin GTT. His course was complicated by increasing O2 requirements despite 100% FiO2 with 60 L of oxygen. His O2 sats remained in the high 80s and low 90s. He was dyspneic with minimal movement. TMP-SMX was added for possible Pneumocystis Jirovecii infection. Serum beta D glucan was negative. Sputum culture grew Staphylococcus hemolyticus (penicillin and TMPSMX resistant). He was started on IV vancomycin and TMPSMX was discontinued. He was followed by pulmonary who felt that he was too high risk for bronchoscopy and it may be low yield. He was moved to the PCU. His prognosis was felt to be poor and it was thought that transitioning to comfort measures and hospice level of care would be appropriate. Patient is DNR /DNI but wanted all other aggressive measures to continue. He did not feel he was ready for comfort measures. He was evaluated by heme-onc and starting tocilizumab was considered given the possible inflammatory vs radiation related nature of the pneumonitis. Sputum PCR was sent for Pneumocystis jirovecii and finalized as positive. Infectious disease consulted for positive PJP PCR. He was restarted on TMPSMX An E consult without video evaluation completed as video/camera is not working. Microbiology 12/03 Beta D glucan <31 12/05 sputum culture Staphylococcus hemolyticus (sensitive to linezolid, vancomycin) 12/05 sputum + PJP PCR Antibiotics Ceftriaxone 12/02 - 12/03 Azithromycin 12/02 - 12/05 TMPSMX 12/04 - 12/05, 12/10current Vancomycin # Worsening acute hypoxic respiratory failure # Non-small cell lung cancer, sp chemotherapy , radiation ( pending immunotherapy) # Pneumocystis Jirovecii pneumonia ( PCR +but negative serum Beta D glucan) # Pulmonary Embolism # Possible pneumonitis (chemo- induced versus radiation-induced ) # Left chest port in place # Positive staph hemolyticus on sputum culture # Elevated LDH 495-->848-->781-->988. #S/P MVR Discussion: His worsening respiratory status is likely multifactorial in the setting of PE, lung adenocarcinoma, possible staph hemolyticus pneumonia, possible pneumonitis, possible PJP, CHF . Although this sputum PCR is positive PJP and His is markedly LDH is elevated, Beta D glucan is negative He is currently on TMPSMX + methylprednisolone. He completed 7 d of IV vancomycin. 12/11 He remains hypoxic . On HFNC 45L/75%. 12/12 His respiratory status has worsened- now on HFNC and ventimask. O2 sats were between 77-87%. On 100% fio2.. CRP increased to 4.27, LDH up to 988, Pro-Alessandro 0.21. There was concern that he may be aspirating. Added Zosyn. CT chest shows increased pulmonary opacities possibly combo pneumonia and pulmonary edema, CHF . Ordered Crypto ag, Aspergillus ag 12/13 His respiratory status continues to worsen. He has been on CPAP for the past 24 hours. O2 sats 91% on CPAP 8 and 60%. Afebrile. AMS this am. Cr and LDH worsening LDH 495-->848-->781-->988-->1033 CRP 12.26 ->.3.76--> 2.64 --> 1.91--> 4.27--> 16.44 Sodium 132, potassium 4.3 Recommendations -Continue zosyn 4.5g Iv q 8 -Continue TMPSMX ( 5 mg/kg Iv q8hr for 21 days ( 12/10-12/31) Will need to closely monitor K, Na, Cr on therapy. If significant side effects on Bactrim, will need to consider alternatives ( ie Atovaquone or primaquine+ Clinda) ,Continue methylprednisolone with taper per pulmonary ( 21 day steroid taper for PJP is usually --> prednisone 40 mg po bid for 5 days, then 40 mg po daily for 5 days, then 20 mg PO daily for 11 days). Will defer to pulmonary and heme onc on steroid taper as he is also being treated for possible pneumonitis. -Start voriconazole 6mg/kg iv q12h times 2 doses ( loading) and the 4mg/kg IV q12hrs for now -Follow up crypto serum and aspergillus antigen -Ordered histoplasma urinary antigen -Reordered fungitell ( B d glucan) -Ordered Legionella sputum Culture Discussed with pulmonary ID will continue to follow, but [facility] will not round or review the chart over the weekend. Call covering provider at [facility] at [phone] Munguia will resume coverage for [facility] on Saturday 12/16. Hue Doherty MD, MPH Infectious Disease [facility], [facility] Division Admission and Anticipated Discharge Date Admission Date: November 29, 2024 Subjective This patient recommendation is based on a telemedicine consult request which was completed asynchronously through chart review and information provided by the primary physician. The patient was not seen or examined today. The evaluation is consultative in nature and all patient care and treatment decisions can either be accepted or rejected by the patient's primary hospital-based treating physician using their own independent medical judgment for their patient. Time Spent Reviewing Chart: 21 - 30 minutes His respiratory status continues to worsen. He has been on CPAP for the past 24 hours. O2 sats 91% on CPAP 8 and 60%. Afebrile. AMS this morning. He completed vancomycin. He remains on Bactrim /methylprednisolone taper. Added Zosyn yesterday. CRP up to 16.44, LDH up to 1033. CT chest shows diffusely increased pulmonary opacities. Results & Data Vital Signs (Past 12 Hours) Vital Signs Temp Pulse Pulse Resp BP BP Pulse Ox 12/13/24 13:34 109 H 12/13/24 11:35 37.6 C H 131 H 32 H 120/81 93 12/13/24 11:05 102 H 24 93 12/13/24 10:25 101 H 120/81 12/13/24 09:58 126 H 116/86 12/13/24 08:14 37.2 C 103 H 26 H 144/78 H 95 12/13/24 08:00 12/13/24 07:16 95 H 22 97 12/13/24 07:16 95 H 22 97 12/13/24 07:00 99 H 12/13/24 03:05 88 117/75 12/13/24 02:52 103 H 26 H 91 12/13/24 02:46 100 H 22 132/73 92 O2 Del Method FiO2 12/13/24 13:34 12/13/24 11:35 CPAP 32 12/13/24 11:05 60 12/13/24 10:25 12/13/24 09:58 12/13/24 08:14 CPAP 60 12/13/24 08:00 CPAP 60 12/13/24 07:16 60 12/13/24 07:16 CPAP 60 12/13/24 07:00 12/13/24 03:05 12/13/24 02:52 50 12/13/24 02:46 CPAP Laboratory Results Laboratory Results - last 48 hr 12/12/24 12/12/24 12/12/24 04:57 04:59 08:37 WBC 8.20 RBC 3.38 L Hgb 9.8 L Hct 31.0 L MCV 91.7 MCH 29.0 MCHC 31.6 L RDW Std Deviation 62.0 H RDW Coeff of Joesph 18.6 H Plt Count 163 MPV 10.4 Immature Gran % (Auto) 5.4 Neut % (Auto) 82.4 Lymph % (Auto) 4.4 Dawson % (Auto) 7.6 Eos % (Auto) 0.0 Baso % (Auto) 0.2 Neut # (Auto) 6.76 H Lymph # (Auto) 0.36 L Dawson # (Auto) 0.62 H Eos # (Auto) 0.00 Baso # (Auto) 0.02 Immature Gran # (Auto) 0.44 H Absolute Nucleated RBC 0.03 Nucleated RBC % (auto) 0.4 RBC Morphology Echinocytes 1+ ESR 10 Heparin Anti-Xa, Unfract 0.50 ABG pH ABG pCO2 ABG pO2 ABG HCO3 ABG O2 Saturation ABG Base Excess Garrett Test Oxygen Given Sodium 134 L Potassium 4.3 Chloride 104 Carbon Dioxide 26 Anion Gap 4 BUN 20 Creatinine 0.73 Est Cr Clr Drug Dosing 74.2 eGFR 91.40 BUN/Creatinine Ratio 27.4 H Glucose 104 H Calcium 7.9 L Ammonia Lactate Dehydrogenase 988 H C-Reactive Protein 4.27 H B-Natriuretic Peptide 186 H Procalcitonin 0.21 Adenovirus (PCR) B. pertussis DNA (PCR) B.parapertussis DNA PCR C. pneumoniae DNA (PCR) Coronavirus OC43 (PCR) Coronavirus HKU1 (PCR) Coronavirus 229E (PCR) SARS-CoV-2 (PCR) Coronavirus NL63 (PCR) Human Metapneumovir PCR Influenza Type A (PCR) Influenza Type B (PCR) M. pneumoniae (PCR) Parainfluenza 1 (PCR) Parainfluenza 2 (PCR) Parainfluenza 3 (PCR) Parainfluenza 4 (PCR) RSV (PCR) Entero/Rhino (PCR) 12/13/24 12/13/24 12/13/24 04:43 10:16 10:20 WBC 6.32 RBC 2.99 L Hgb 8.8 L Hct 27.3 L MCV 91.3 MCH 29.4 MCHC 32.2 RDW Std Deviation 60.6 H RDW Coeff of Joesph 18.6 H Plt Count 118 L MPV 10.4 Immature Gran % (Auto) 3.2 Neut % (Auto) 91.1 Lymph % (Auto) 2.5 Dawson % (Auto) 3.0 Eos % (Auto) 0.0 Baso % (Auto) 0.2 Neut # (Auto) 5.76 Lymph # (Auto) 0.16 L Dawson # (Auto) 0.19 Eos # (Auto) 0.00 Baso # (Auto) 0.01 Immature Gran # (Auto) 0.20 Absolute Nucleated RBC Nucleated RBC % (auto) RBC Morphology Unremarkable Echinocytes ESR Heparin Anti-Xa, Unfract 0.31 ABG pH 7.44 ABG pCO2 31 L ABG pO2 85 ABG HCO3 21 ABG O2 Saturation 98.8 H ABG Base Excess -2.1 Garrett Test Pos Oxygen Given 60 Sodium 132 L Potassium 4.3 Chloride 103 Carbon Dioxide 24 Anion Gap 5 BUN 19 Creatinine 0.81 Est Cr Clr Drug Dosing 66.9 eGFR 88.58 BUN/Creatinine Ratio 23.5 H Glucose 131 H Calcium 8.0 L Ammonia 45.0 Lactate Dehydrogenase 1033 H C-Reactive Protein 16.44 H B-Natriuretic Peptide Procalcitonin Adenovirus (PCR) B. pertussis DNA (PCR) B.parapertussis DNA PCR C. pneumoniae DNA (PCR) Coronavirus OC43 (PCR) Coronavirus HKU1 (PCR) Coronavirus 229E (PCR) SARS-CoV-2 (PCR) Coronavirus NL63 (PCR) Human Metapneumovir PCR Influenza Type A (PCR) Influenza Type B (PCR) M. pneumoniae (PCR) Parainfluenza 1 (PCR) Parainfluenza 2 (PCR) Parainfluenza 3 (PCR) Parainfluenza 4 (PCR) RSV (PCR) Entero/Rhino (PCR) 12/13/24 10:40 WBC RBC Hgb Hct MCV MCH MCHC RDW Std Deviation RDW Coeff of Joesph Plt Count MPV Immature Gran % (Auto) Neut % (Auto) Lymph % (Auto) Dawson % (Auto) Eos % (Auto) Baso % (Auto) Neut # (Auto) Lymph # (Auto) Dawson # (Auto) Eos # (Auto) Baso # (Auto) Immature Gran # (Auto) Absolute Nucleated RBC Nucleated RBC % (auto) RBC Morphology Echinocytes ESR Heparin Anti-Xa, Unfract ABG pH ABG pCO2 ABG pO2 ABG HCO3 ABG O2 Saturation ABG Base Excess Garrett Test Oxygen Given Sodium Potassium Chloride Carbon Dioxide Anion Gap BUN Creatinine Est Cr Clr Drug Dosing eGFR BUN/Creatinine Ratio Glucose Calcium Ammonia Lactate Dehydrogenase C-Reactive Protein B-Natriuretic Peptide Procalcitonin Adenovirus (PCR) Not Detected B. pertussis DNA (PCR) Not Detected B.parapertussis DNA PCR Not Detected C. pneumoniae DNA (PCR) Not Detected Coronavirus OC43 (PCR) Not Detected Coronavirus HKU1 (PCR) Not Detected Coronavirus 229E (PCR) Not Detected SARS-CoV-2 (PCR) Not Detected Coronavirus NL63 (PCR) Not Detected Human Metapneumovir PCR Not Detected Influenza Type A (PCR) Not Detected Influenza Type B (PCR) Not Detected M. pneumoniae (PCR) Not Detected Parainfluenza 1 (PCR) Not Detected Parainfluenza 2 (PCR) Not Detected Parainfluenza 3 (PCR) Not Detected Parainfluenza 4 (PCR) Not Detected RSV (PCR) Not Detected Entero/Rhino (PCR) Not Detected Microbiology 12/05/24 11:30 Sputum, Expectorated Gram Stain - Final 12/05/24 11:30 Sputum, Expectorated Sputum Culture - Final Staphylococcus haemolyticus Diagnostic Findings Chest X-Ray 12/12/24 07:00 EXAM: XR chest 1V portable CLINICAL HISTORY: F/u pna TECHNIQUE: An X-ray image of the chest was obtained in AP projection. COMPARISON: No prior studies are available for comparison. FINDINGS: The left portocath remains stable and well-positioned, with the tip located in the lower part of the superior vena cava. Pulmonary Parenchyma: There is mild interval worsening of patchy opacification with reticular shadowing in both mid and lower zones, mainly on the right side. There is stable blunting of the right costophrenic angle, likely representing mild pleural effusion versus pleural thickening. Heart and Mediastinum: The heart size and shape are normal. There is no mediastinal widening or mass. No hilar or mediastinal lymphadenopathy is seen. Bony Thorax: The bony thorax appears intact without fractures or deformities. Sternotomy wires are present due to a prior procedure. Soft Tissues: The soft tissues overlying the chest wall are unremarkable. IMPRESSION: 1. There is mild interval worsening of bilateral patchy infiltration and hazy reticulations in both middle and lower lung zones (more pronounced on the right side), which could be due to an acute infectious process; clinical correlation is needed. 2. Stable blunting of the right costophrenic angle could be due to minimal effusion or pleural thickening. Electronically signed by Yair Acevedo 12-12-2024 08:[address] 12/12/24 07:23 CT chest diagnostic wo con CT DOSE: 819.46 mGy.cm CLINICAL HISTORY: worsening hyopxia, concern for aspiration. TECHNIQUE: Multiaxial CT images of the chest were performed without contrast. A dose lowering technique was utilized adhering to the principles of ALARA. COMPARISON STUDY: 11/29/2024 through 01/11/2024 FINDINGS: There is motion artifact due to difficulty breath holding. There is stable mild diffuse bronchiectasis. There is bronchial wall thickening consistent with bronchitis. There is moderate emphysema. There are increased diffuse reticular, groundglass, and patchy pulmonary opacities consistent with bilateral pneumonia. There is a lung mass with mildly irregular margins at the lateral right lower lobe measuring 3 cm greatest axial dimension, stable. There is a small right pleural effusion which layers dependently, increased in size. No pneumothorax. There is moderate cardiomegaly with prominence of the pulmonary vasculature consistent with CHF. 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 There are diffuse coronary artery calcifications. There is stable mediastinal and hilar adenopathy measuring up to 2.5 cm at a subcarinal lymph node. There is a small hiatal hernia. There are diffuse thoracic spine degenerative changes. IMPRESSION: 1. CHF with small right pleural effusion. 2. Diffusely increased pulmonary opacities likely represent a combination of pneumonia and pulmonary edema. 3. Stable 3 cm right lower lobe mass. 4. Otherwise as described. ACT 112: Negative or not required by law. Electronically signed by: Jesu Morley M.D. 12/12/2024 10:12 AM Chest X-Ray 12/13/24 07:52 XR chest 1V portable CLINICAL HISTORY: f/u COMPARISON STUDY: 12/12/2024 FINDINGS: Stable CABG and chest port. Stable mild cardiomegaly with mild pulmonary vascular congestion. Stable diffuse interstitial and patchy pulmonary opacities. Stable mild elevation of the right hemidiaphragm. No pneumothorax. IMPRESSION: Stable exam. ACT 112: Negative or not required by law. Electronically signed by: Jesu Morley M.D. 12/13/2024 8:11 AM Medications Administered Home Medications Medication Instructions Recorded Confirmed Last Taken calcium polycarbophil 625 mg 625 mg PO BID 11/13/19 11/29/24 11/29/24 tablet (Fiber-Tabs) ferrous sulfate 325 mg (65 mg 325 mg PO QPM 11/13/19 11/29/24 11/28/24 iron) tablet (iron) multivitamin 1 tab PO QAM 03/31/22 11/29/24 11/29/24 latanoprost 0.005 % eye drops 1 drp OPR HS 01/11/24 11/29/24 11/28/24 atorvastatin 40 mg tablet 40 mg PO HS #90 tabs 03/11/24 11/29/24 11/28/24 esomeprazole magnesium 20 mg 20 mg PO QPM #90 caps 05/14/24 11/29/24 11/28/24 capsule,delayed release (Nexium 24HR) amoxicillin 500 mg capsule 2,000 mg (4 x 500 mg) PO .COMPLEX 05/15/24 11/29/24 08/08/24 #4 caps tamsulosin 0.4 mg capsule 0.8 mg (2 x 0.4 mg) PO QPM 07/01/24 11/29/24 11/28/24 frequency #180 caps aspirin 81 mg tablet,delayed 81 mg PO QAM 08/02/24 11/29/24 11/29/24 release tiotropium bromide 2.5 2 puff inhalation DAILY #4 grams 10/01/24 11/29/24 11/29/24 mcg/actuation mist for inhalation (Spiriva Respimat) mirabegron 50 mg tablet,extended 50 mg PO QPM #90 tabs 10/25/24 11/29/24 11/28/24 release 24 hr (Myrbetriq) metoprolol succinate 25 mg 25 mg PO QAM #90 tabs 11/07/24 11/29/24 11/29/24 tablet,extended release 24 hr levothyroxine 50 mcg tablet 50 mcg PO QAM #90 tabs 11/19/24 11/29/24 11/29/24 Active Medications Generic Name Dose Route Start Last Admin Trade Name Freq PRN Reason Stop Dose Admin Al Hydrox/Mg Hydrox/Simethicone 15 ml 11/30/24 05:34 11/30/24 05:47 Aluminum/Magnesium Susp 30 Ml Udc PO 12/30/24 05:33 15 ml Q6H PRN Administration Heartburn Albuterol 3 ml 11/30/24 01:28 12/05/24 13:25 Albut/Ipratrop 3mg/0.5mg Neb 3 Ml Vial NEB 12/30/24 01:27 3 ml Q6R PRN Administration Shortness Of Breath Or Wheezing Protocol Aspirin 81 mg 11/30/24 09:00 12/13/24 09:25 Aspirin 81 Mg Ectab PO 12/30/24 08:59 Not Given QAM RITO Atorvastatin Calcium 40 mg 11/29/24 23:34 12/12/24 20:10 Atorvastatin 40 Mg Tab PO 12/29/24 23:33 Not Given HS RITO Budesonide 0.5 mg 12/03/24 19:00 12/13/24 07:15 Budesonide 0.5 Mg/2 Ml Vial (Pulmicort) NEB 01/02/25 18:59 0.5 mg BIDR RITO Administration Fluticasone Propionate 1 sprays 12/11/24 21:00 12/13/24 09:25 Fluticasone Propionate Na Spr 16 Gm Btl NA 01/10/25 20:59 Not Given BID RITO Formoterol Fumarate 20 mcg 12/03/24 19:00 12/13/24 07:15 Formoterol 20 Mcg/2 Ml Vial NEB 01/02/25 18:59 20 mcg BIDR RITO Administration Heparin Sodium (Porcine) 5 ml 12/13/24 07:14 12/13/24 08:10 Heparin 100 Unit/Ml 5ml Flush FLUSH 01/12/25 07:13 5 ml PRN PRN Administration Flush Heparin Sodium/Dextrose 25,000 units in 500 mls @ 18 mls/hr 11/29/24 19:45 12/13/24 06:05 Heparin 70864 Unit/500 Ml D5w IV 12/29/24 19:44 900 units/hr .Q24H RITO 18 mls/hr Administration Protocol 900 UNITS/HR Pantoprazole Sodium 40 mg in 10 mls @ 5 mls/min 12/06/24 15:30 12/13/24 09:58 Protonix IV 01/05/25 15:29 5 mls/min DAILY RITO Administration Trimethoprim/Sulfamethoxazole 520 mls @ 348.542 mls/hr 12/10/24 16:30 12/13/24 10:36 320 mg/ Dextrose IV 12/30/24 23:59 Infused Q8H RITO Infusion Methylprednisolone 30 mg/ 0.48 mls @ 0.667 mls/min 12/11/24 09:00 12/13/24 08:10 Syringe IV 01/10/25 08:59 0.667 mls/min Q12H RITO Administration Piperacillin Sod/Tazobactam Sod 4.5 gm in 100 mls @ 25 mls/hr 12/12/24 16:00 12/13/24 12:10 Zosyn IV 12/19/24 15:59 Infused Q8H RITO Infusion Protocol Latanoprost 1 drops 11/29/24 23:34 12/12/24 20:10 Latanoprost 0.005% Op Soln 2.5 Ml Btl OPR 12/29/24 23:33 1 drops HS RITO Administration Levothyroxine Sodium 50 mcg 12/10/24 06:30 12/13/24 07:13 Levothyroxine Sodium 50 Mcg Tablet PO 01/09/25 06:29 Not Given DAILYBB RITO Lorazepam 0.5 mg 12/06/24 08:38 12/13/24 14:09 Lorazepam 2 Mg/1 Ml Vial IV 01/05/25 08:37 0.5 mg Q8H PRN Administration Anxiety/Agitation Metoprolol Succinate 25 mg 11/30/24 09:00 12/12/24 08:15 Metoprolol Succ 25mg Ext Rel Tab PO 12/30/24 08:59 Not Given QAM RITO Metoprolol Tartrate 2.5 mg 12/12/24 09:00 12/13/24 09:58 Metoprolol Tartrate 1 Mg/Ml Vial IV 01/11/25 08:59 2.5 mg Q6H RITO Administration Morphine Sulfate 1 mg 12/05/24 18:12 12/13/24 12:13 Morphine Sulfate 2 Mg/Ml Carp IV 12/19/24 18:11 1 mg Q4H PRN Administration Mod-Sev Pain (Scale 4-10) Nystatin 5 ml 12/08/24 13:00 12/12/24 08:16 Nystatin Susp 500,000 U/5 Ml Udc PO 12/18/24 12:59 Not Given QID RITO Ondansetron HCl 4 mg 11/29/24 23:34 12/06/24 16:56 Ondansetron Inj 2 Mg/Ml 2 Ml Vial IV 12/29/24 23:33 4 mg Q6H PRN Administration Nausea And Vomiting Pantoprazole Sodium 40 mg 11/30/24 09:00 12/06/24 11:02 Pantoprazole 40 Mg Tab PO 12/30/24 08:59 Not Given DAILY RITO Tamsulosin HCl 0.8 mg 11/29/24 23:34 12/12/24 20:01 Tamsulosin Hcl 0.4 Mg Cap PO 12/29/24 23:33 Not Given QPM RITO
[2024-12-13] MEDS: SODIUM CHLORIDE 0.9% 1,000 ML IV SCH (15:01)
[2024-12-13] MEDS: CASPOFUNGIN 70 MG in SODIUM CHLORIDE 0.9% 250 ML IV ONE (15:01)
[2024-12-13] MEDS: SODIUM CHLORIDE 0.9% IV SCH (16:55)
[2024-12-13] MEDS: VORICONAZOLE IV SCH (16:55)
[2024-12-14 06:41] LABS: Anion Gap 7.0 (3-11); Blood Urea Nitrogen 26.0 mg/dl (6-23); Calcium 8.0 mg/dl (8.6-10.3); Carbon Dioxide 25.0 mmol/L (21-32); Chloride 98.0 mmol/L (98-107); Creatinine Clr Calc Pharmacy 54.2 ml/min; Glucose 118.0 mg/dl (70-99(Fasting)); Potassium 4.6 mmol/L (3.5-5.1); Sodium 130.0 mmol/L (136-145)
[2024-12-14 06:47] LABS: ANTI-Xa, UFH(UnfractionatedHep 0.21 IU/ml (0.3-0.7)
[2024-12-14 06:51] LABS: Hematocrit (blood only) 25.3 % (42.0-52.0); Hemoglobin 8.1 g/dl (14.0-18.0); Mean Corpuscular Hemoglobin 29.5 pg (25.0-34.0); Mean Corpuscular Volume 92.0 fL (80.0-100.0); Platelet Count 104 K/uL (130-400); RDW Standard Deviation 62.8 fL (36.4-46.3); Red Blood Count 2.75 M/uL (4.70-6.10); White Blood Count 5.65 K/ul (4.8-10.8)
[2024-12-14 07:17] LABS: Immature Granulocytes # (auto) 0.10 K/uL (0.01-0.20); Immature Granulocytes % (auto) 1.8 %; Polychromasia 1+
--- NOTE | 2024-12-14 07:54 | Hospitalist Progress Note ---
Date of Service December 14, 2024 Assessment & Plan (1) Pneumocystis jiroveci pneumonia: (2) Pneumonitis: (3) Acute hypoxic respiratory failure: (4) Bilateral pulmonary embolism: (5) Atrial fibrillation with rapid ventricular response: (6) Adenocarcinoma of lung: (7) CAD (coronary artery disease): Plan 79yo male with lung cancer with metastatic disease to mediastinal lymph nodes, CAD s/p 2V CABG, porcine MVR, and maze procedure in March 2024, paroxysmal atrial fibrillation, COPD presenting with two weeks of progressive SOB and LE edema. Patient hypoxic to 88% on room air on arrival. Bilateral pulmonary emboli and b/l groundglass infiltrates seen on CTA chest on 11/29/24. Since admission developed severe acute hypoxic respiratory failure and multifocal pneumonia. PJP from sputum returned positive 12/10/24. #Acute hypoxic respiratory failure - severe, Remains critically ill and highly medically complex. -multifactorial including b/l PEs, PJP infection, staph haemolyticus pneumonia, acute on chronic HFpEF, possible radiation pneumonitis, COPD -respiratory biofire negative 11/29 -COVID/flu/RSV negative 12/05 -legionella urine ag negative -other pending labs per ID -he had been on broad-spectrum IV antibiotics and was diuresed earlier this admission; finished 5-day course of azithromycin previously -completed 7 days of vancomycin on 12/13 for possible staph haemolyticus pneumonia -briefly was on Bactrim earlier this admission, Bactrim resumed for PJP - 21 day course 12/10-12/31 with concomitant steroids -pip-tazo added 12/12 for possible aspiration -remains on IV steroids - solumedrol 30 IV q 12h -voriconazole started 12/13 -pulmonary and infectious disease consulting. discussed with Dr. Ascencio and reviewed recs in her note -today looks better in person, however, several labs worse - CRP up to 24 and Na 130 possibly related to bactrim. LDH came down some. -trying HFNC again today # acute toxic/metabolic encephalopathy - related to severe hypoxia, critical illness, medications needed for comfort (morphine, lorazepam). abg today without hypercarbia. ammonia normal. -much more responsive and interactive today #Atrial fibrillation with RVR -previous history of a.fib and underwent Maze procedure with his CABG and MVR in 03/2024 -echo with preserved EF, TSH wnl -continues in/out of afib, continue metoprolol 2.5 mg IV q6h and PRN #Bilateral subsegmental pulmonary emboli - -Continue heparin drip -thrombocytopenic again, probably from infection however caution for HIT. Platelets decreased more today #Hyponatremia - -130 today, continue gentle IV NS, monitor BMP daily #Adenocarcinoma of the lung - IIIb. -s/p chemotherapy and XRT with pause in chemotherapy in September 2024 due to cytopenias -was planning to start immunotherapy in December -primary oncologist - [facility] #antineoplastic chemotherapy induced pancytopenia - -s/p 1 unit PRBCs on 12/07 -recent B12/folate wnl -recent Fe panel c/w acute phase reactant -W 5 Hg 8.1 Plt 104 today - Plt down more otherwise stable #CAD #Hypertension #Hyperlipidemia -s/p CABG x 2V performed in March 2024 as well as mitral valve replacement with porcine valve and maze procedure -Echo 12/02 - preserved EF, bioprosthetic MV functioning well -oral meds held - aspirin, atorvastatin, Metoprolol succ daily -stable #Hypothyroidism - -TSH wnl -NPO so levothyroxine held, IV if prolonged hold #Emphysema/COPD - -Continue nebs -Continue IV solumedrol #GERD -Continue Protonix IV #BPH - -resume flomax if taking po #DVT ppx - -heparin drip Admission and Anticipated Discharge Date Admission Date: November 29, 2024 Subjective On CPAP 8 with 50% FiO2 He says he's a little more comfortable wrt dyspnea today. Tightness across anterior chest especially on R has improved Much more interactive Physical Exam 2 Physical Exam: Last 24h vitals reviewed GEN: awake wearing CPAP HEENT: pupils equal, sclerae anicteric, dry MM RESP: continues tachypneic with retractions, not as labored as yesterday, scattered crackles throughout CV: reg, no murmur. obscured ABD: soft/nt/nd +BT : no luther SKIN: warm and dry, no generalized rashes EXT: wwp no peripheral edema NEURO: Alert once aroused, nods yes/no to questions, NORTHWAY, follows commands Results & Data Results & Data Vital Signs (Past 12 Hours) Vital Signs Temp Pulse Pulse Resp BP BP Pulse Ox 12/14/24 04:48 91 H 122/85 12/14/24 03:14 36.6 C 94 H 17 136/76 94 12/14/24 03:09 96 H 136/76 12/14/24 02:25 96 H 26 H 94 12/14/24 00:46 93 H 12/13/24 23:44 36.7 C 96 H 21 116/59 L 92 12/13/24 22:24 92 H 22 94 12/13/24 21:26 12/13/24 21:22 87 117/74 12/13/24 20:16 100 H 121/72 12/13/24 19:56 101 H 29 H 94 12/13/24 19:56 101 H 29 H 94 O2 Del Method FiO2 12/14/24 04:48 12/14/24 03:14 CPAP 12/14/24 03:09 12/14/24 02:25 50 12/14/24 00:46 12/13/24 23:44 CPAP 12/13/24 22:24 50 12/13/24 21:26 CPAP 50 12/13/24 21:22 12/13/24 20:16 12/13/24 19:56 50 12/13/24 19:56 CPAP 50 Laboratory Results 12/14/24 06:05 12/14/24 06:05 Hg drifting down, platelets and sodium worse CRP increased 16-->24 LDH 1000-->800 weight up and I/Os positive personally reviewed CXR film - looks unchanged from yesterday, possibly R sided opacities more prominent and pulmonary edema less prominent vs technique PG Care Time/CCT Total # of Minutes Spent Total Time Spent with Patient: Total time spent is greater than 50% in coordination of care (as documented) at patient's floor/unit and/or counseling patient: Coding Level of Care Code 17496 SUB INP/OBS CARE 3/50MIN Diagnoses Pneumocystis jiroveci pneumonia B59 Pneumonitis J98.4 Acute hypoxic respiratory failure J96.01 Bilateral pulmonary embolism I26.99 Atrial fibrillation with rapid ventricular response I48.91 Adenocarcinoma of right lung C34.91 Laterality: right CAD (coronary artery disease) I25.10 (6) Adenocarcinoma of lung Laterality: right Qualified Code(s): C34.91 - Malignant neoplasm of unspecified part of right bronchus or lung
--- NOTE | 2024-12-14 08:19 | XRay Report ---
EXAM: XR chest 1V portable CLINICAL HISTORY: F/u. TECHNIQUE: An X-ray image of the chest was obtained in one frontal projection. COMPARISON: Prior X-ray dated 12/12/2024 is available for comparison. FINDINGS: A left chemoport is noted with the tip in the SVC. Pulmonary Parenchyma: There are unchanged air space opacities and reticular thickening in the bilateral mid and lower zones, more pronounced on the right side. There is unchanged blunting of both CP angles, likely due to pleural thickening versus effusion. Heart and Mediastinum: The heart size and shape are normal. There is no mediastinal widening or masses. No hilar or mediastinal lymphadenopathy is observed. Bony Thorax: Sternotomy sutures are seen. The bony thorax appears intact without fractures or deformities. Soft Tissues: The soft tissues overlying the chest wall are unremarkable. IMPRESSION: A left chemoport is noted with the tip in the SVC. new There are unchanged air space opacities and reticular thickening in the bilateral mid and lower zones, more pronounced on the right side. There is unchanged blunting of both CP angles, likely due to pleural thickening versus effusion. No significant interval changes are identified. Electronically signed by Yair Acevedo 12-14-2024 08:18 AM
--- NOTE | 2024-12-14 08:22 | Pulmonology Progress Note ---
Date of Service December 14, 2024 Assessment & Plan (1) Acute hypoxic respiratory failure: (2) Pneumocystis jiroveci pneumonia: (3) Adenocarcinoma of lung: Laterality: right Qualified Code(s): C34.91 - Malignant neoplasm of unspecified part of right bronchus or lung (4) Bilateral pulmonary embolism: Plan Patient is an 79-year-old male with a history of right lung adenocarcinoma, paulina nary artery disease, CAD, pulmonary hypertension, emphysema, hypothyroidism, GERD, hypertension, esophageal varices, TMJ and vitamin D deficiency. The patient follows with Dr. Mcbride in the pulmonary clinic. Was being treated outpatient with chemotherapy in September and received radiation treatment in October. The patient presented to the hospital 11/30/2024 with shortness of breath and lower extremity edema. Imaging on arrival showed bilateral lower lobe subsegmental pulmonary emboli and increasing GGO's in bilateral lung [place]. The patient was started on anticoagulation. He continued to have worsening respiratory failure with hypoxia for which pulmonary was consulted. Echocardiogram did not show evidence of RV strain with the PE. He was started on antibiotics to cover for community-acquired pneumonia and started on Bactrim and IV steroids. The patient continued to be hypoxic and required maximum Optiflow of 60 L and 100%. Steroids were continued and the dose was increased. Antibiotics were broadened to Zosyn and vancomycin. Lasix were added and the patient was aggressively diuresed. The patient had hyponatremia after Bactrim therefore this was discontinued. Urine Legionella was negative therefore atypical coverage with azithromycin was stopped. Sputum culture grew Staphylococcus hemolyticus sensitive to vancomycin and linezolid. Oncology was consulted, due to concern for radiation pneumonitis the plan was to initiate a dose of tocilizumab. However sputum cultures are now showing positive pneumocystis jiroveci PCR therefore tocilizumab has been discontinued and the patient was started on Bactrim. The patient had slightly improved however when examined on 12/12/2024 he was found to be profoundly hypoxic requiring maximum Optiflow in addition to Ventimask and still satting only in the mid 80s. Inflammatory markers and LDH are climbing. Imaging with x-ray appears worse. Infectious workup: CRP: 11.3 on admission, decreased to 1.91, increased to 4.27-16.44-24.4today. Viral PCR negative. Has had multiple COVID and flu tests that are negative. Pneumocystis jiroveci PCR positive from sputum 12/05/2024 LDH elevated, [phone] today Procalcitonin [id number] Beta D glucan level is low. Legionella is negative. Legionella culture is pending. Urine culture with Klebsiella. Blood culture no growth to date. Sputum culture from 12/05/2024 with Staphylococcus hemolyticus sensitive to vancomycin and linezolid. Galactomannan is pending. Cryptococcal Ag is pending. HIV pending. Repeat viral PCR negative. Histoplasma Ag pending. Repeat blood cultures 12/13 are pending Problem list: Acute hypoxic respiratory failure Staphylococcus haemolyticus pneumonia Pneumocystis jiroveci pneumonia Possible radiation pneumonitis Bilateral subsegmental PE Right lung adenocarcinoma Underlying emphysema Underlying pulmonary hypertension Hyponatremia Assessment: Imaging from admission showed diffuse GGO's, more significant on the right however still present on the left. The patient also was found to have subsegmental PEs. Differential diagnosis included pneumonitis from radiation or chemotherapy versus infectious etiology. Sputum cultures initially only grew Staphylococcus hemolyticus for which the patient was treated appropriately. PCR from his sputum has resulted now and is showing PJP pneumonia. His CT findings with the GGO's could very likely have been PJP initially rather than radiation pneumonitis. At this point I do not think his PEs are really contributing to his hypoxia. He has been anticoagulated appropriately. Echo did not show evidence of RV dysfunction. He has both staph and PJP pneumonia. Both of these are likely contributing to his profound hypoxia. The patient has taken an interval turn for the worse. Has more dense infiltrates and diffuse GGO with traction bronchiectasis. Small effusion. LDH is climbing which carries with it overall very poor prognosis. CRP is also climbing. Has been relying on CPAP for >48 hours now. Recommendations/plan: Continue CPAP. Wean for saturation of 88 to 92%. Can try Optiflo today. Please place gel protective nasal bridge under CPAP mask to prevent tissue breakdown. Remains NPO. If possible switching all of his medications to IV formula would be best. Patient has been on high-dose steroids with methylprednisolone, steroids were initiated on 12/03/2024. Given the immunocompromise state and respiratory failure I will continue steroids with the PJP pneumonia. Will do methylprednisolone 30 mg twice daily for 5 days, then decrease to once daily for 10 days and then decrease to 20 mg daily until his course of Bactrim is complete. Continue IV Bactrim for 21 days. The patient did have some hyponatremia previously when he had Bactrim therefore we will need to watch the sodium closely. Sodium is dropping. Added normal saline 12/12 as he is not unable to take p.o. Given the severity of his illness I would prefer not to switch to alternative PJP treatment. Will trend LDH daily. Will trend CRP and Procal. Infectious diseases consulted. Patient should remain on GI prophylaxis while on steroids. Will hold on giving lasix today in setting of NPO status and hyponatremia. Completed vancomycin for the staph pneumonia. Zosyn added back 12/12. Voriconazole added 12/12 for possible fungal/mold infection. Patient remains critically ill with a generally poor prognosis. CODE STATUS is DNR/DNI. Discussed extensively with bedside RN. Plan discussed with patient in detail. Case discussed at length with hospitalist and with infectious disease specialist. No family during AM rounds today. Thank you for this consultation, I will continue to follow along with you. Admission and Anticipated Discharge Date Admission Date: November 29, 2024 Subjective Patient examined this morning during rounds. More alert and communicative today. On 50% FiO2 and CPAP of 8 satting 90%. Denies chest pain. He says that his nose is hurting where the CPAP is resting on it. Denies nausea or abdominal pain. Review of Systems Review of Systems: Denies chest pain. Denies nausea. Denies abdominal pain. Endorses pain on the bridge of his nose where his CPAP is resting. Physical Exam Physical Exam: Physical examination: General: Chronically ill-appearing, frail, resting in bed, moderate respiratory distress. HEENT: Normocephalic, atraumatic. No JVD appreciated. CPAP in place. Erythema noted of the bridge of the nose. Skin: Warm and dry. No rashes appreciated. No jaundice appreciated. Cardiovascular: Sinus rhythm, no tachycardia, no murmurs appreciated on my exam. No significant lower extremity edema. Lungs: Coarse breath sounds, Rales appreciated at bilateral bases. Nontachypneic. On CPAP of 8 with 50% and saturation of 90%. Abdomen: Nondistended, nontender to palpation. Musculoskeletal: Normal muscle mass and tone. No gross joint deformity abnormalities. No effusions appreciated. Neurologic: Awake and alert, moving all extremities, nonfocal exam. Results & Data Results & Data Vital Signs (Past 12 Hours) Vital Signs Temp Pulse Pulse Resp BP BP Pulse Ox 12/14/24 04:48 91 H 122/85 12/14/24 03:14 36.6 C 94 H 17 136/76 94 12/14/24 03:09 96 H 136/76 12/14/24 02:25 96 H 26 H 94 12/14/24 00:46 93 H 12/13/24 23:44 36.7 C 96 H 21 116/59 L 92 12/13/24 22:24 92 H 22 94 12/13/24 21:26 12/13/24 21:22 87 117/74 12/13/24 20:16 100 H 121/72 O2 Del Method FiO2 12/14/24 04:48 12/14/24 03:14 CPAP 12/14/24 03:09 12/14/24 02:25 50 12/14/24 00:46 12/13/24 23:44 CPAP 12/13/24 22:24 50 12/13/24 21:26 CPAP 50 12/13/24 21:22 12/13/24 20:16 PG Care Time/CCT Total # of Minutes Spent Total Time Spent with Patient: Total time spent is greater than 50% in coordination of care (as documented) at patient's floor/unit and/or counseling patient: Coding [place] [address] SUB INP/OBS CARE 3/50MIN Patient Type Established History Comprehensive Exam Comprehensive Medical Decision Making High Complexity Diagnoses Acute hypoxic respiratory failure J96.01 Pneumocystis jiroveci pneumonia B59 Adenocarcinoma of right lung C34.91 Laterality: right Bilateral pulmonary embolism I26.99
[2024-12-14] MEDS: ALBUT/IPRATROP 3MG/0.5MG NEB 3 ML VIAL NEB SCH (12:42)
[2024-12-14 13:25] LABS: ANTI-Xa, UFH(UnfractionatedHep 0.24 IU/ml (0.3-0.7)
[2024-12-14] MEDS ORDERED: CASPOFUNGIN 50 MG in SODIUM CHLORIDE 0.9% 250 ML IV SCH (14:15)
[2024-12-14] MEDS: VORICONAZOLE IV SCH (17:38)
[2024-12-14] MEDS: SODIUM CHLORIDE 0.9% IV SCH (17:38)
[2024-12-14 19:57] LABS: ANTI-Xa, UFH(UnfractionatedHep 0.27 IU/ml (0.3-0.7)
[2024-12-15 02:29] LABS: Anion Gap 7.0 (3-11); Blood Urea Nitrogen 23.0 mg/dl (6-23); Calcium 8.2 mg/dl (8.6-10.3); Carbon Dioxide 22.0 mmol/L (21-32); Chloride 98.0 mmol/L (98-107); Creatinine Clr Calc Pharmacy 60.9 ml/min; Glucose 184.0 mg/dl (70-99(Fasting)); Potassium 4.7 mmol/L (3.5-5.1); Sodium 127.0 mmol/L (136-145)
[2024-12-15 02:41] LABS: ANTI-Xa, UFH(UnfractionatedHep 0.34 IU/ml (0.3-0.7)
[2024-12-15 02:48] LABS: Hematocrit (blood only) 26.1 % (42.0-52.0); Hemoglobin 8.3 g/dl (14.0-18.0); Immature Granulocytes # (auto) 0.14 K/uL (0.01-0.20); Immature Granulocytes % (auto) 1.7 %; Mean Corpuscular Hemoglobin 29.1 pg (25.0-34.0); Mean Corpuscular Volume 91.6 fL (80.0-100.0); Platelet Count 115 K/uL (130-400); RBC Morphology Unremarkable; RDW Standard Deviation 62.8 fL (36.4-46.3); Red Blood Count 2.85 M/uL (4.70-6.10); White Blood Count 8.03 K/ul (4.8-10.8)
[2024-12-15 03:26] LABS: Base Excess VBG -2.6 mEq/L; HCO3 VBG 23 mmol/L; Oxygen Saturation VBG 66.6 %; PCO2 VBG 43 mmHg (38-50); PO2 VBG 39 mmHg; pH VBG 7.34 (7.36-7.41)
[2024-12-15] MEDS ORDERED: STAT IV/IM STA (09:23)
--- NOTE | 2024-12-15 09:37 | Pulmonology Progress Note ---
Date of Service December 15, 2024 Assessment & Plan (1) Acute hypoxic respiratory failure: (2) Pneumocystis jiroveci pneumonia: (3) Adenocarcinoma of lung: Laterality: right Qualified Code(s): C34.91 - Malignant neoplasm of unspecified part of right bronchus or lung (4) Bilateral pulmonary embolism: Plan Patient is an 79-year-old male with a history of right lung adenocarcinoma, paulina nary artery disease, CAD, pulmonary hypertension, emphysema, hypothyroidism, GERD, hypertension, esophageal varices, TMJ and vitamin D deficiency. The patient follows with Dr. Mcbride in the pulmonary clinic. Was being treated outpatient with chemotherapy in September and received radiation treatment in October. The patient presented to the hospital 11/30/2024 with shortness of breath and lower extremity edema. Imaging on arrival showed bilateral lower lobe subsegmental pulmonary emboli and increasing GGO's in bilateral lung [place]. The patient was started on anticoagulation. He continued to have worsening respiratory failure with hypoxia for which pulmonary was consulted. Echocardiogram did not show evidence of RV strain with the PE. He was started on antibiotics to cover for community-acquired pneumonia and started on Bactrim and IV steroids. The patient continued to be hypoxic and required maximum Optiflow of 60 L and 100%. Steroids were continued and the dose was increased. Antibiotics were broadened to Zosyn and vancomycin. Lasix were added and the patient was aggressively diuresed. The patient had hyponatremia after Bactrim therefore this was discontinued. Urine Legionella was negative therefore atypical coverage with azithromycin was stopped. Sputum culture grew Staphylococcus hemolyticus sensitive to vancomycin and linezolid. Oncology was consulted, due to concern for radiation pneumonitis the plan was to initiate a dose of tocilizumab. However sputum cultures are now showing positive pneumocystis jiroveci PCR therefore tocilizumab has been discontinued and the patient was started on Bactrim. The patient had slightly improved however when examined on 12/12/2024 he was found to be profoundly hypoxic requiring maximum Optiflow in addition to Ventimask and still satting only in the mid 80s. Inflammatory markers and LDH are climbing. Imaging with x-ray appears worse. Infectious workup: CRP: 11.3 on admission, decreased to 1.91, increased to 4.27->16.44->24.4->15 today. Viral PCR negative. Has had multiple COVID and flu tests that are negative. Pneumocystis jiroveci PCR positive from sputum 12/05/2024 LDH elevated, 848->781->988->1033->816->891 today Procalcitonin 0.10>0.05>0.21->0.88 today Beta D glucan level is low. Legionella is negative. Legionella culture is pending. Urine culture with Klebsiella. Blood culture no growth to date. Repeat blood cultures 12/13 are negative. Sputum culture from 12/05/2024 with Staphylococcus hemolyticus sensitive to vancomycin and linezolid. Galactomannan is pending. Cryptococcal Ag is pending. HIV pending. Histoplasma Ag pending. Problem list: Acute hypoxic respiratory failure Staphylococcus haemolyticus pneumonia Pneumocystis jiroveci pneumonia Possible radiation pneumonitis Bilateral subsegmental PE Right lung adenocarcinoma Underlying emphysema Underlying pulmonary hypertension Hyponatremia Assessment: Imaging from admission showed diffuse GGO's, more significant on the right however still present on the left. The patient also was found to have subsegmental PEs. Differential diagnosis included pneumonitis from radiation or chemotherapy versus infectious etiology. Sputum cultures initially only grew Staphylococcus hemolyticus for which the patient was treated appropriately. PCR from his sputum has resulted now and is showing PJP pneumonia. His CT findings with the GGO's could very likely have been PJP initially rather than radiation pneumonitis. At this point I do not think his PEs are really contributing to his hypoxia. He has been anticoagulated appropriately. Echo did not show evidence of RV dysfunction. He has both staph and PJP pneumonia. Both of these are likely contributing to his profound hypoxia. The patient has taken an interval turn for the worse. Has more dense infiltrates and diffuse GGO with traction bronchiectasis. Small effusion. LDH is climbing which carries with it overall very poor prognosis. CRP is also climbing. Has been relying on CPAP for >72 hours now. Recommendations/plan: Continue CPAP. Wean for saturation of 88 to 92%. Can try Optiflo today. Please place gel protective nasal bridge under CPAP mask to prevent tissue breakdown. Remains NPO. If possible switching all of his medications to IV formula would be best. Patient has been on high-dose steroids with methylprednisolone, steroids were initiated on 12/03/2024. Given the immunocompromise state and respiratory failure I will continue steroids with the PJP pneumonia. Will do methylprednisolone 30 mg twice daily for 5 days (today is day 5), then decrease to once daily ( starting tomorrow) for 10 days and then decrease to 20 mg daily until his course of Bactrim is complete. Continue IV Bactrim for 21 days. The patient did have some hyponatremia previously when he had Bactrim therefore we will need to watch the sodium closely. Sodium is dropping. Added normal saline 12/12 as he is not unable to take p.o. Given the severity of his illness I would prefer not to switch to alternative PJP treatment. Will initiate 3% sodium chloride today at 30 cc/hr and monitor NA Q4H. Will trend LDH daily. Will trend CRP and Procal. Infectious diseases consulted. Patient should remain on GI prophylaxis while on steroids. Will give 1 dose of lasix 40 mg today. Completed vancomycin for the staph pneumonia. Zosyn added back 12/12. Voriconazole added 12/12 for possible fungal/mold infection. Patient remains critically ill with a generally poor prognosis. CODE STATUS is DNR/DNI. Discussed extensively with bedside RN. Plan discussed with patients at bedside in detail. Case discussed at length with hospitalist and with infectious disease specialist. Thank you for this consultation, I will continue to follow along with you. Admission and Anticipated Discharge Date Admission Date: November 29, 2024 Subjective Patient is very sleepy this morning. I guess that he received Ativan about 1 hour before I got there this morning. He was more alert and a bit agitated according to his and bedside RN. He also was hypoxic overnight. When I saw him this morning he was on 85% FiO2 and a CPAP of 8, his saturation was 97% without. I decreased him to 60% FiO2 and his saturation remained 88 to 90%. The patient was on Optiflow briefly yesterday, I guess that the Optiflow machine actually malfunctioned and he was placed back on CPAP and Optiflow was not tried again for rest of the day. His sodium continues to drop. He is starting to retain some fluid with the normal saline. Review of Systems Review of Systems: Not able to obtain due to altered mental status. Physical Exam Physical Exam: Physical examination: General: Chronically ill-appearing, frail, resting in bed, moderate respiratory distress. HEENT: Normocephalic, atraumatic. No JVD appreciated. CPAP in place. Erythema noted of the bridge of the nose. Skin: Warm and dry. No rashes appreciated. No jaundice appreciated. Cardiovascular: Sinus rhythm, no tachycardia, no murmurs appreciated on my exam. Trace lower extremity edema. Lungs: Coarse breath sounds, Rales appreciated at bilateral bases. Nontachypneic. On CPAP of 8 with 60% and saturation of 89%. Abdomen: Nondistended, nontender to palpation. Musculoskeletal: Normal muscle mass and tone. No gross joint deformity abnormalities. No effusions appreciated. Neurologic: Awake and alert, moving all extremities, nonfocal exam. Results & Data Results & Data Vital Signs (Past 12 Hours) Vital Signs Temp Pulse Pulse Resp BP BP Pulse Ox 12/15/24 08:03 106 H 151/98 H 12/15/24 07:33 106 H 24 93 12/15/24 07:32 115 H 24 92 12/15/24 07:09 36.6 C 106 H 16 151/98 H 89 L 12/15/24 03:27 36.4 C L 120 H 22 130/76 91 12/15/24 02:32 102 H 122/85 12/15/24 02:24 99 H 24 91 12/15/24 02:24 12/15/24 02:17 110 H 156/85 H 12/14/24 23:06 36.4 C L 102 H 22 145/93 H 92 12/14/24 22:38 94 H 22 88 L 12/14/24 22:06 97 H O2 Del Method FiO2 12/15/24 08:03 12/15/24 07:33 85 12/15/24 07:32 CPAP 85 12/15/24 07:09 Room Air 12/15/24 03:27 CPAP 12/15/24 02:32 12/15/24 02:24 65 12/15/24 02:24 CPAP 65 12/15/24 02:17 12/14/24 23:06 CPAP 12/14/24 22:38 65 12/14/24 22:06 PG Care Time/CCT Total # of Minutes Spent Total Time Spent with Patient: Total time spent is greater than 50% in coordination of care (as documented) at patient's floor/unit and/or counseling patient: C[place] [address] SUB INP/OBS CARE 3/50MIN Patient Type Established History Comprehensive Exam Comprehensive Medical Decision Making High Complexity Diagnoses Acute hypoxic respiratory failure J96.01 Pneumocystis jiroveci pneumonia B59 Adenocarcinoma of right lung C34.91 Laterality: right Bilateral pulmonary embolism I26.99
--- NOTE | 2024-12-15 10:00 | Hospitalist Progress Note ---
Date of Service December 15, 2024 Assessment & Plan (1) Pneumocystis jiroveci pneumonia: (2) Pneumonitis: (3) Acute hypoxic respiratory failure: (4) Bilateral pulmonary embolism: (5) Atrial fibrillation with rapid ventricular response: (6) Adenocarcinoma of lung: (7) CAD (coronary artery disease): Plan 79yo male with lung cancer with metastatic disease to mediastinal lymph nodes, CAD s/p 2V CABG, porcine MVR, and maze procedure in March 2024, paroxysmal atrial fibrillation, COPD presenting with two weeks of progressive SOB and LE edema. Patient hypoxic to 88% on room air on arrival. Bilateral pulmonary emboli and b/l groundglass infiltrates seen on CTA chest on 11/29/24. complex hospital course. Since admission developed severe acute hypoxic respiratory failure and multifocal pneumonia. Steroids and treatment for PJP were initiated. He has been on and off of broad-spectrum antibiotics throughout the stay. The last several days he has been dependent on CPAP for acute hypoxic respiratory failure, has not shown any durable signs of improving. #Acute hypoxic respiratory failure - severe, Remains critically ill and highly medically complex decision making required. -multifactorial including b/l PEs, PJP infection, staph haemolyticus pneumonia, acute on chronic HFpEF, possible radiation pneumonitis, COPD -respiratory biofire negative 11/29 -COVID/flu/RSV negative 12/05 -legionella urine ag negative, culture pending -other pending labs per ID -he had been on broad-spectrum IV antibiotics and was diuresed earlier this admission; finished 5-day course of azithromycin previously -completed 7 days of vancomycin on 12/13 for possible staph haemolyticus pneumonia -briefly was on Bactrim earlier this admission, Bactrim resumed for PJP - 21 day course 12/10-12/31 with concomitant steroids -pip-tazo added 12/12 for possible aspiration on that date -remains on IV steroids - solumedrol 30 IV q 12h, dosing will decrease tomorrow -voriconazole started 12/13 -pulmonary and infectious disease consulting. discussed with Dr. Ascencio today. CRP and LDH finally downtrended however he is worse in the last 24 hours from a pulmonary perspective # hyponatremiaworsening hyponatremia probably related to Bactrim, also happened earlier in the stay when he was on Bactrim previously because of the severity of his illness we are hesitant to change treatment for the PJP - sodium did not improve with IV NS actually worsened initiated 3% saline, monitor sodium checks at least every 4 hours. Repeat check midday today had improved to 129. 24-hour goal is 132 or less, however, this is acute hyponatremia so not a large concern for ODS # acute toxic/metabolic encephalopathy - related to severe hypoxia, critical illness, medications needed for comfort (morphine, lorazepam). abg today without hypercarbia. ammonia normal. - quite lethargic today which seems to be mostly related to IV lorazepam - possible have improvement in agitation after placement of Johnson catheter - ordered Haldol 0.5 mg IVP every 6 hours as needed #Atrial fibrillation with RVR -previous history of a.fib and underwent Maze procedure with his CABG and MVR in 03/2024 -echo with preserved EF, TSH wnl -continues in/out of afib, continue metoprolol 2.5 mg IV q6h and PRN rate is adequately controlled for his severity of illness #Bilateral subsegmental pulmonary emboli - -Continue heparin drip -thrombocytopenic again, probably from infection however caution for HIT. Platelets improved a little and stable #Adenocarcinoma of the lung - IIIb. -s/p chemotherapy and XRT with pause in chemotherapy in September 2024 due to cytopenias -was planning to start immunotherapy in December -primary oncologist - [facility] #antineoplastic chemotherapy induced pancytopenia - -s/p 1 unit PRBCs on 12/07 -recent B12/folate wnl -recent Fe panel c/w acute phase reactant -W 5 Hg 8.1 Plt 104 today - Plt down more otherwise stable #CAD #Hypertension #Hyperlipidemia -s/p CABG x 2V performed in March 2024 as well as mitral valve replacement with porcine valve and maze procedure -Echo 12/02 - preserved EF, bioprosthetic MV functioning well -oral meds held - aspirin, atorvastatin, Metoprolol -stable #Hypothyroidism - -TSH wnl -NPO so levothyroxine held, IV if prolonged hold #Emphysema/COPD - -Continue nebs -Continue IV solumedrol #GERD -Continue Protonix IV #BPH - -resume flomax if taking po FENhe has been n.p.o. several days because of clinical instability and requirement for CPAP, if he is unable to advance his diet within a day or 2 we will have to consider parenteral nutrition which will pose some challenges for his volume status #DVT ppx - -heparin drip Admission and Anticipated Discharge Date Admission Date: November 29, 2024 Subjective Mr. Shay had a rough night with hypoxia. He is a little bit better this morning back down to 75% FiO2 on his CPAP VBG overnight without acidosis or hypercarbia he is sleepy this morning because he just received IV lorazepam and is not able to give me any history he has been very twitchy and agitated when he has been more alert, midday was found he was retaining urine and Johnson catheter was placed which may help Physical Exam 2 Physical Exam: Last 24h vitals reviewed GEN: Sleepy but arousable wearing CPAP HEENT: pupils equal, sclerae anicteric, dry MM RESP: continues tachypneic with retractions, continues to have scattered bilateral crackles CV: reg, no murmur. obscured ABD: soft/nt/nd +BT : Johnson catheter SKIN: warm and dry, no generalized rashes EXT: wwp no peripheral edema NEURO: pretty sedated currently, arousable, [place] Results & Data Results & Data Vital Signs (Past 12 Hours) Vital Signs Temp Pulse Pulse Resp BP BP Pulse Ox 12/15/24 08:20 92 H 141/75 H 12/15/24 08:03 106 H 151/98 H 12/15/24 07:33 106 H 24 93 12/15/24 07:32 115 H 24 92 12/15/24 07:09 36.6 C 106 H 16 151/98 H 89 L 12/15/24 03:27 36.4 C L 120 H 22 130/76 91 12/15/24 02:32 102 H 122/85 12/15/24 02:24 99 H 24 91 12/15/24 02:24 12/15/24 02:17 110 H 156/85 H 12/14/24 23:06 36.4 C L 102 H 22 145/93 H 92 12/14/24 22:38 94 H 22 88 L 12/14/24 22:06 97 H O2 Del Method FiO2 12/15/24 08:20 12/15/24 08:03 12/15/24 07:33 85 12/15/24 07:32 CPAP 85 12/15/24 07:09 Room Air 12/15/24 03:27 CPAP 12/15/24 02:32 12/15/24 02:24 65 12/15/24 02:24 CPAP 65 12/15/24 02:17 12/14/24 23:06 CPAP 12/14/24 22:38 65 12/14/24 22:06 Laboratory Results 12/15/24 01:57 12/15/24 12:16 initial sodium this morning was 127 CRP 15.8 which is basically the same LDH 891 which is similar to yesterday PG Care Time/CCT Total # of Minutes Spent Total Time Spent with Patient: Total time spent is greater than 50% in coordination of care (as documented) at patient's floor/unit and/or counseling patient: Coding Level of Care Code 86258 SUB INP/OBS CARE 350MIN Diagnoses Pneumocystis jiroveci pneumonia B59 Pneumonitis J98.4 Acute hypoxic respiratory failure J96.01 Bilateral pulmonary embolism I26.99 Atrial fibrillation with rapid ventricular response I48.91 Adenocarcinoma of right lung C34.91 Laterality: right CAD (coronary artery disease) I25.10 (6) Adenocarcinoma of lung Laterality: right Qualified Code(s): C34.91 - Malignant neoplasm of unspecified part of right bronchus or lung
[2024-12-15] MEDS: SODIUM CHLORIDE 3% IV SCH (10:26)
[2024-12-15] MEDS: FUROSEMIDE 40 MG/4 ML VIAL IV ONE (11:07)
[2024-12-15 12:46] LABS: Anion Gap 7.0 (3-11); Blood Urea Nitrogen 21.0 mg/dl (6-23); Calcium 8.3 mg/dl (8.6-10.3); Carbon Dioxide 25.0 mmol/L (21-32); Chloride 97.0 mmol/L (98-107); Creatinine Clr Calc Pharmacy 63.0 ml/min; Glucose 136.0 mg/dl (70-99(Fasting)); Potassium 4.6 mmol/L (3.5-5.1); Sodium 129.0 mmol/L (136-145)
[2024-12-15] MEDS ORDERED: PROCHLORPERAZINE 5 MG in SYRINGE 4 ML IV PRN (14:03)
[2024-12-15 15:56] LABS: HIV 1 RNA PCR Copies/ML NOT DETECTED copies/mL (NOT DETECTED)
[2024-12-15 16:28] LABS: Anion Gap 6.0 (3-11); Blood Urea Nitrogen 21.0 mg/dl (6-23); Calcium 8.2 mg/dl (8.6-10.3); Carbon Dioxide 27.0 mmol/L (21-32); Chloride 97.0 mmol/L (98-107); Creatinine Clr Calc Pharmacy 61.6 ml/min; Glucose 141.0 mg/dl (70-99(Fasting)); Potassium 4.3 mmol/L (3.5-5.1); Sodium 130.0 mmol/L (136-145)
--- NOTE | 2024-12-15 18:24 | Communication Note ---
Date of Service: December 15, 2024 On 3% saline for worsening hyponatremia being provoked by IV bactrim for PJP Na 127-->129-->130 today. goal by tomorrow midday of 132 Decreased rate from 30 mL/h to 20 mL/h Requested physician be contacted if Na<129 or Na>131 q4h sodium checks Respiratory status remains very tenuous, CPAP at 8 and 75% FiO2 -lethargic today but has needed lorazepam for agitation/anxiety from dyspnea, CPAP - added PRN haldol as first line for agitation/anxiety -will order vbg with next sodium check -remains DNI
[2024-12-15 20:08] LABS: Base Excess VBG -1.3 mEq/L; HCO3 VBG 25 mmol/L; Oxygen Saturation VBG 65.4 %; PCO2 VBG 46 mmHg (38-50); PO2 VBG 36 mmHg; pH VBG 7.34 (7.36-7.41)
[2024-12-15 20:29] LABS: Anion Gap 6.0 (3-11); Blood Urea Nitrogen 19.0 mg/dl (6-23); Calcium 7.9 mg/dl (8.6-10.3); Carbon Dioxide 27.0 mmol/L (21-32); Chloride 97.0 mmol/L (98-107); Creatinine Clr Calc Pharmacy 65.3 ml/min; Glucose 151.0 mg/dl (70-99(Fasting)); Potassium 4.4 mmol/L (3.5-5.1); Sodium 130.0 mmol/L (136-145)
[2024-12-16 00:49] LABS: Anion Gap 3.0 (3-11); Blood Urea Nitrogen 21.0 mg/dl (6-23); Calcium 8.0 mg/dl (8.6-10.3); Carbon Dioxide 28.0 mmol/L (21-32); Chloride 100.0 mmol/L (98-107); Creatinine Clr Calc Pharmacy 67.7 ml/min; Glucose 107.0 mg/dl (70-99(Fasting)); Potassium 4.5 mmol/L (3.5-5.1); Sodium 131.0 mmol/L (136-145)
[2024-12-16] MEDS ORDERED: SODIUM CHLORIDE 0.9% IV SCH (04:00)
[2024-12-16] MEDS ORDERED: VORICONAZOLE IV SCH (04:00)
[2024-12-16 05:12] LABS: Hematocrit (blood only) 25.1 % (42.0-52.0); Hemoglobin 7.9 g/dl (14.0-18.0); Mean Corpuscular Hemoglobin 29.5 pg (25.0-34.0); Mean Corpuscular Volume 93.7 fL (80.0-100.0); Platelet Count 129 K/uL (130-400); RDW Standard Deviation 65.8 fL (36.4-46.3); Red Blood Count 2.68 M/uL (4.70-6.10); White Blood Count 7.98 K/ul (4.8-10.8)
[2024-12-16 05:24] LABS: Anion Gap 4.0 (3-11); Blood Urea Nitrogen 21.0 mg/dl (6-23); Calcium 7.9 mg/dl (8.6-10.3); Carbon Dioxide 28.0 mmol/L (21-32); Chloride 98.0 mmol/L (98-107); Creatinine Clr Calc Pharmacy 69.4 ml/min; Glucose 146.0 mg/dl (70-99(Fasting)); Potassium 4.5 mmol/L (3.5-5.1); Sodium 130.0 mmol/L (136-145)
[2024-12-16 05:25] LABS: Anion Gap 5.0 (3-11); Blood Urea Nitrogen 20.0 mg/dl (6-23); Calcium 7.9 mg/dl (8.6-10.3); Carbon Dioxide 27.0 mmol/L (21-32); Chloride 100.0 mmol/L (98-107); Creatinine Clr Calc Pharmacy 69.4 ml/min; Glucose 148.0 mg/dl (70-99(Fasting)); Potassium 4.5 mmol/L (3.5-5.1); Sodium 132.0 mmol/L (136-145)
[2024-12-16 05:28] LABS: Basophilic Stippling 1+; Immature Granulocytes # (auto) 0.12 K/uL (0.01-0.20); Immature Granulocytes % (auto) 1.5 %; Polychromasia 1+
[2024-12-16 05:37] LABS: ANTI-Xa, UFH(UnfractionatedHep 0.50 IU/ml (0.3-0.7)
--- NOTE | 2024-12-16 07:53 | Hospitalist Progress Note ---
Date of Service December 16, 2024 Assessment & Plan (1) Pneumocystis jiroveci pneumonia: (2) Pneumonitis: (3) Acute hypoxic respiratory failure: (4) Bilateral pulmonary embolism: (5) Atrial fibrillation with rapid ventricular response: (6) Adenocarcinoma of lung: (7) CAD (coronary artery disease): Plan 79yo male with lung cancer with metastatic disease to mediastinal lymph nodes, CAD s/p 2V CABG, porcine MVR and maze procedure in March 2024, paroxysmal atrial fibrillation, COPD presented with two weeks of progressive SOB and LE edema. Patient hypoxic to 88% on room air on arrival. Bilateral pulmonary emboli and b/l groundglass infiltrates seen on CTA chest on 11/29/24. complex hospital course. Since admission developed severe acute hypoxic respiratory failure and multifocal pneumonia. Steroids and treatment for PJP were initiated. He has been on and off of broad-spectrum antibiotics throughout the stay. The last several days he has been dependent on CPAP for acute hypoxic respiratory failure, has not shown any durable signs of improving. #Acute hypoxic respiratory failure - severe, Remains critically ill and highly medically complex decision making required. -multifactorial including b/l PEs, PJP infection, staph haemolyticus pneumonia, acute on chronic HFpEF, possible radiation pneumonitis, COPD -respiratory biofire negative 11/29 -COVID/flu/RSV negative 12/05 -legionella urine ag negative, culture not collected (no sputum) -other pending labs per ID -he had been on broad-spectrum IV antibiotics and was diuresed earlier this admission; finished 5-day course of azithromycin previously -completed 7 days of vancomycin on 12/13 for possible staph haemolyticus pneumonia -briefly was on Bactrim earlier this admission, Bactrim resumed for PJP - 21 day course 12/10-12/31 with concomitant steroids -pip-tazo added 12/12 for possible aspiration on that date -per pulmonary recs: solumedrol 30 IV q 12h for five days, decrease to daily 12/16 x 10 days, then decrease to 20 mg daily until bactrim complete. Taper ordered through 01/01. -voriconazole started 12/13 -CRP has significantly improved last 48 hours and LDH is unchanged at 800s -pulmonary and infectious disease consultingdiscussed with pulmonary todaypersonally reviewed chest x-ray film it is worse today continues to have same diffuse patchy opacities bilaterally the left base appears significantly worse than yesterday's film -lasix 40 mg IV x 1 -ordered CXR # hyponatremiaworsening hyponatremia probably related to Bactrim, also happened earlier in the stay when he was on Bactrim before because of the severity of his illness we are hesitant to change treatment for the PJP 12/15 initiated 3% saline, cont q4h NA check. 127-->131 past 24h, no change since last night on 20 mL/h so will increase back to 30 mL/h. by afternoon it is 132, continue same plan. Discussed with RN # acute toxic/metabolic encephalopathy - related to severe hypoxia, critical illness, medications needed for comfort (morphine, lorazepam). abg without hypercarbia. - a little less lethargic today is absolutely requiring some IV morphine and lorazepam for air hunger and discomfort. - ordered Haldol 0.5 mg IVP every 6 hours as needed, partially ends effective so increased dose to 1 mg #Atrial fibrillation with RVR -previous history of a.fib and underwent Maze procedure with his CABG and MVR in 03/2024 -echo with preserved EF, TSH wnl -continues in/out of afib, continue metoprolol 2.5 mg IV q6h and PRN rate is adequately controlled 90-120 range for his severity of illness #Bilateral subsegmental pulmonary emboli - -Continue heparin drip -thrombocytopenia better 129 #Adenocarcinoma of the lung - IIIb. -s/p chemotherapy and XRT with pause in chemotherapy in September 2024 due to cytopenias -was planning to start immunotherapy in December -primary oncologist - [facility] #antineoplastic chemotherapy induced pancytopenia - -s/p 1 unit PRBCs on 12/07 -recent B12/folate wnl -recent Fe panel c/w acute phase reactant - CBC is stable today #CAD #Hypertension #Hyperlipidemia -s/p CABG x 2V performed in March 2024 as well as mitral valve replacement with porcine valve and maze procedure -Echo 12/02 - preserved EF, bioprosthetic MVR functioning well -oral meds held - aspirin, atorvastatin, Metoprolol -stable #Hypothyroidism - -TSH wnl -NPO so levothyroxine held, IV if prolonged hold #Emphysema/COPD - -Continue nebs -Continue IV solumedrol #GERD -Continue Protonix IV #BPH - -resume flomax if taking po FEN he is at the point where if we are to continue treatment with curative intent he should be fed. Enteral feeding would be preferable especially because of his volume shifts and hyponatremia, hopefully he feeding tube would be compatible with his CPAP which he still requires. Alternate is TPN he does have a port #DVT ppx - -heparin drip remains critically ill with severe hypoxic respiratory failure that has not improved and is on the knifes edge of unsustainable with noninvasive ventilation. Highly complex medical decision making today I discussed the plan of care in detail with his daughter at the bedside including issues with feeding him and queried whether he would want tube feeds even if temporary. I discussed his global prognosis we plan to meet tomorrow morning with his also present and hopefully pulmonary Admission and Anticipated Discharge Date Admission Date: November 29, 2024 Subjective FiO2 85%-->70% past 24h, remains CPAP dependent Ed is more alert and responsive than yesterday though still significantly encephalopathic or sedated, he will awaken and open his eyes and can nod yes no appropriately to questions he was on high flow nasal cannula for a time this morning when his was visiting however he relatively quickly developed severe air hunger and CPAP was replaced. sats were maintainable on max high flow nasal cannula with facemask Physical Exam 2 Physical Exam: Last 24h vitals reviewed GEN: ill-appearing arousable wearing CPAP HEENT: pupils equal, sclerae anicteric, dry MM RESP: continues tachypneic with retractions, bilateral scattered crackles throughout all lung [place] CV: tachycardic pseudo regular ABD: soft/nt/nd +BT : Johnson catheter SKIN: warm and dry, no generalized rashes EXT: wwp no peripheral edema NEURO: arousable can nod yes no very hard of hearing Results & Data Results & Data Vital Signs (Past 12 Hours) Vital Signs Temp Pulse Pulse Resp BP BP Pulse Ox 12/16/24 07:18 97 H 23 91 12/16/24 07:09 122 H 24 89 L 12/16/24 03:07 36.4 C L 97 H 21 138/83 92 12/16/24 02:50 97 H 138/83 12/16/24 02:35 108 H 151/87 H 12/16/24 01:46 104 H 23 88 L 12/15/24 22:38 36.4 C L 94 H 22 144/76 H 93 12/15/24 22:05 103 H 24 91 12/15/24 21:41 96 H 12/15/24 20:37 94 H 150/83 H 12/15/24 20:22 101 H 131/91 O2 Del Method FiO2 12/16/24 07:18 70 12/16/24 07:09 CPAP 70 12/16/24 03:07 CPAP 12/16/24 02:50 12/16/24 02:35 12/16/24 01:46 70 12/15/24 22:38 CPAP 12/15/24 22:05 75 12/15/24 21:41 12/15/24 20:37 12/15/24 20:22 Laboratory Results 12/16/24 04:16 12/16/24 04:16 LDH same at 811 CRP pending Sodium improved from 127-->131 on hypertonic saline last 24h blood cx 12/13 NGTD PG Care Time/CCT Total # of Minutes Spent Total Time Spent with Patient: Total time spent is greater than 50% in coordination of care (as documented) at patient's floor/unit and/or counseling patient: Coding Level of Care Code 65022 SUB INP/OBS CARE 3/50MIN Diagnoses Pneumocystis jiroveci pneumonia B59 Pneumonitis J98.4 Acute hypoxic respiratory failure J96.01 Bilateral pulmonary embolism I26.99 Atrial fibrillation with rapid ventricular response I48.91 Adenocarcinoma of right lung C34.91 Laterality: right CAD (coronary artery disease) I25.10 (6) Adenocarcinoma of lung Laterality: right Qualified Code(s): C34.91 - Malignant neoplasm of unspecified part of right bronchus or lung
[2024-12-16] MEDS: FUROSEMIDE 40 MG/4 ML VIAL IV ONE (08:04)
[2024-12-16 08:16] LABS: Anion Gap 3.0 (3-11); Blood Urea Nitrogen 21.0 mg/dl (6-23); Calcium 8.0 mg/dl (8.6-10.3); Carbon Dioxide 29.0 mmol/L (21-32); Chloride 100.0 mmol/L (98-107); Creatinine Clr Calc Pharmacy 73.2 ml/min; Glucose 114.0 mg/dl (70-99(Fasting)); Potassium 4.7 mmol/L (3.5-5.1); Sodium 132.0 mmol/L (136-145)
--- NOTE | 2024-12-16 08:21 | XRay Report ---
XR chest 1V portable CLINICAL HISTORY: hypoxia COMPARISON STUDY: 12/14/2024 FINDINGS: Stable CABG. Stable cardiomegaly. There is diffuse patchy opacity throughout both lungs, in creased at the left lower lung. No pneumothorax. Stable mild blunting of the right costophrenic angl e. Stable left chest port. IMPRESSION: Increased diffuse patchy opacity throughout both lungs. ACT 112: Negative or not required by law. Electronically signed by: Jesu Morley M.D. 12/16/2024 8:20 AM
--- NOTE | 2024-12-16 10:43 | Infectious Disease Progress Nt ---
Date of Service December 16, 2024 Assessment & Plan (1) Pneumocystis jiroveci pneumonia: (2) Pneumonitis: (3) Bilateral pulmonary infiltrates: Plan 79 yo M with past medical history of non-small cell cancer of the right lung status post chemotherapy plus radiation, (chemotherapy stopped in 09/2024 secondary to cytopenias; last radiation 10/2024, plan to start immunotherapy), hypertension, hyperlipidemia, hypothyroidism, pulmonary hypertension, status post MVR, sp Port-A-Cath, esophageal varices presents to the ED on 11/29/24 w/ worsening dyspnea that worsened with exertion. He endorsed a productive cough that was blood-tinged as well as B/L lower extremity edema. He denied fever, chills. On admission he was afebrile, tachypneic, tachycardic and hypoxic. Labs notable for WBC of 1.52 (ANC 1.03), total bili 1.6, AST 60, ALT 48, CRP 11.33. Respiratory viral panel negative, beta D glucan less than 31 (negative), Legionella antigen negative, creatinine 1.03, MRSA screen negative, procalcitonin 0.10. Initial CTA chest showed bilateral lower lobe pulmonary embolism: Interval increase in size of multifocal nodular opacities in the right lower lobe which could be inflammatory though bronchogenic carcinoma is also possible. Interval worsening of multifocal ground glass opacities which may be due to viral pneumonitis. Mild mediastinal and bilateral hilar adenopathy. Small pleural effusion. Initial chest x-ray showed stable interstitial and faint pulmonary opacities. Throughout his course chest x-ray showed progression of the bilateral airspace opacities and interstitial thickening. He was initially started on piperacillin/tazobactam, dexamethasone, azithromycin and heparin GTT. His course was complicated by increasing O2 requirements despite 100% FiO2 with 60 L of oxygen. His O2 sats remained in the high 80s and low 90s. He was dyspneic with minimal movement. TMP-SMX was added for possible Pneumocystis Jirovecii infection. Serum beta D glucan was negative. Sputum culture grew Staphylococcus hemolyticus (penicillin and TMPSMX resistant). He was started on IV vancomycin and TMPSMX was discontinued. He was followed by pulmonary who felt that he was too high risk for bronchoscopy and it may be low yield. He was moved to the PCU. His prognosis was felt to be poor and it was thought that transitioning to comfort measures and hospice level of care would be appropriate. Patient is DNR /DNI but wanted all other aggressive measures to continue. He did not feel he was ready for comfort measures. He was evaluated by heme-onc and starting tocilizumab was considered given the possible inflammatory vs radiation related nature of the pneumonitis. Sputum PCR was sent for Pneumocystis jirovecii and finalized as positive. Infectious disease consulted for positive PJP PCR. He was restarted on TMPSMX 12/10. An E consult without video evaluation completed as video/camera is not working. Microbiology 12/13 Urine Histo Ag: pending 12/13 BDG: pending 12/13 BCx x2: NGTD 12/13 RVP: neg 12/12 CrAg: pending 12/12 Aspergillus Ag: pending 12/06 COVID-/flu/RSV: neg 12/05 sputum culture Staphylococcus hemolyticus (sensitive to linezolid, vancomycin) 12/05 sputum + PJP PCR 12/03 Beta D glucan <31 12/02 Urine Legionella Ag: neg 11/29 RVP: neg Antibiotics Ceftriaxone 12/02 - 12/03 Azithromycin 12/02 - 12/05 Zosyn 12/03 - 12/09, 12/12 - present TMPSMX 12/04 - 12/05, 12/10 - present Vancomycin Voriconazole 12/13 - present # Worsening acute hypoxic respiratory failure # Non-small cell lung cancer, sp chemotherapy, radiation ( pending immunotherapy) # Pneumocystis Jirovecii pneumonia ( PCR + but negative serum Beta D glucan) # Pulmonary Embolism # Possible pneumonitis (chemo- induced versus radiation-induced ) # Left chest port in place # Positive staph hemolyticus on sputum culture # Elevated LDH 495-->848-->781-->988. # S/P MVR Discussion: His worsening respiratory status is likely multifactorial in the setting of PE, lung adenocarcinoma, possible staph hemolyticus pneumonia, po ssible pneumonitis, possible PJP, CHF. Although this sputum PCR is positive PJP and LDH is elevated, Beta D glucan is negative. He is currently on TMPSMX + methylprednisolone. He completed 7 d of IV vancomycin. 12/11 He remains hypoxic. On HFNC 45L/75%. 12/12 His respiratory status has worsened- now on HFNC and ventimask. O2 sats were between 77-87%. On 100% fio2. CRP increased to 4.27, LDH up to 988, Pro-Alessandro 0.21. There was concern that he may be aspirating. Added Zosyn. CT chest shows increased pulmonary opacities possibly combo pneumonia and pulmonary edema, CHF. Ordered Crypto ag, Aspergillus ag 12/13 His respiratory status continues to worsen. He has been on CPAP for the past 24 hours. O2 sats 91% on CPAP 8 and 60%. Afebrile. AMS this am. Voriconazole started. Cr and LDH worsening LDH 495-->848-->781-->988-->1033 CRP 12.26 ->.3.76--> 2.64 --> 1.91--> 4.27--> 16.44 Sodium 132, potassium 4.3 12/16 Respiratory status not improved, has remained CPAP dependent over the weekend. Started on 3% saline on 12/15 due to hyponatremia. Downtrending LDH 811, CRP 8.47. Recommendations -Continue Zosyn 4.5g IV q8h -Continue TMPSMX 5 mg/kg IV q8hr for 21 days (12/10-12/31). Will need to closely monitor K, Na, Cr on therapy. If significant side effects on Bactrim, will need to consider alternatives (ie Atovaquone or primaquine + clinda). Continue methylprednisolone with taper per pulmonary (21 day steroid taper for PJP is usually: prednisone 40 mg po bid for 5 days, then 40 mg po daily for 5 days, then 20 mg PO daily for 11 days). Will defer to pulmonary and heme onc on steroid taper as he is also being treated for possible pneumonitis. -Continue voriconazole 4 mg/kg IV q12h for now -Ordered voriconazole trough to be drawn on 12/17 AM prior to AM dose of voriconazole -Follow up crypto antigen, aspergillus antigen, urine histo antigen, repeat fungitell Will continue to follow Admission and Anticipated Discharge Date Admission Date: November 29, 2024 Subjective This patient recommendation is based on a telemedicine consult request which was completed asynchronously through chart review and information provided by the primary physician. The patient was not seen or examined today. The evaluation is consultative in nature and all patient care and treatment decisions can either be accepted or rejected by the patient's primary hospital-based treating physician using their own independent medical judgment for their patient. An e-consult was performed as the video cart is not functioning. Time Spent Reviewing Chart: 31+ minutes Has been CPAP dependent for several days, currently on HFNC 90% 60L to give him a break CXR with increased diffuse patchy opacity throughout both lungs Afebrile without leukocytosis Results & Data Vital Signs (Past 12 Hours) Vital Signs Temp Pulse Pulse Pulse Resp BP BP 12/16/24 10:15 12/16/24 08:55 94 H 157/87 H 12/16/24 08:55 36.6 C 18 12/16/24 08:38 101 H 152/92 H 12/16/24 08:05 101 H 152/92 H 12/16/24 07:55 97 H 21 12/16/24 07:18 97 H 23 12/16/24 07:09 122 H 24 12/16/24 03:07 36.4 C L 97 H 21 138/83 12/16/24 02:50 97 H 138/83 12/16/24 02:35 108 H 151/87 H 12/16/24 01:46 104 H 23 12/15/24 22:38 36.4 C L 94 H 22 144/76 H Pulse Ox O2 Del Method O2 Flow Rate FiO2 12/16/24 10:15 94 Oxymask, High Flow Nasal Cannula 60 12/16/24 08:55 12/16/24 08:55 89 L High Flow Nasal Cannula 12/16/24 08:38 12/16/24 08:05 12/16/24 07:55 91 High Flow Nasal Cannula 60 90 12/16/24 07:18 91 70 12/16/24 07:09 89 L CPAP 70 12/16/24 03:07 92 CPAP 12/16/24 02:50 12/16/24 02:35 12/16/24 01:46 88 L 70 12/15/24 22:38 93 CPAP Laboratory Results Short CBC 12/16/24 Range/Units 04:16 WBC 7.98 (4.8-10.8) K/ul Hgb 7.9 L (14.0-18.0) g/dl Hct 25.1 L (42.0-52.0) % Plt Count 129 L (130-400) K/uL BMP 12/15/24 12/15/24 12/15/24 12:16 15:52 19:55 Sodium 129 L 130 L 130 L Potassium 4.6 4.3 4.4 Chloride 97 L 97 L 97 L Carbon Dioxide 25 27 27 BUN 21 21 19 Creatinine 0.86 0.88 0.83 Glucose 136 H 141 H 151 H Calcium 8.3 L 8.2 L 7.9 L 12/16/24 12/16/24 12/16/24 00:17 04:16 04:16 Sodium 131 L 130 L 132 L Potassium 4.5 4.5 Chloride 100 Carbon Dioxide 28 BUN 21 Creatinine 0.80 Glucose 107 H Calcium 8.0 L 12/16/24 12/16/24 12/16/24 04:16 04:16 04:16 Sodium Potassium 4.5 Chloride 98 100 Carbon Dioxide 28 27 BUN 21 Creatinine Glucose Calcium 12/16/24 12/16/24 12/16/24 04:16 04:16 04:16 Sodium Potassium Chloride Carbon Dioxide BUN 20 Creatinine 0.78 0.78 Glucose 146 H 148 H Calcium 7.9 L 12/16/24 12/16/24 04:16 07:40 Sodium 132 L Potassium 4.7 Chloride 100 Carbon Dioxide 29 BUN 21 Creatinine 0.74 Glucose 114 H Calcium 7.9 L 8.0 L Diagnostic Findings Chest X-Ray 12/16/24 07:44 XR chest 1V portable CLINICAL HISTORY: hypoxia COMPARISON STUDY: 12/14/2024 FINDINGS: Stable CABG. Stable cardiomegaly. There is diffuse patchy opacity throughout both lungs, increased at the left lower lung. No pneumothorax. Stable mild blunting of the right costophrenic angle. Stable left chest port. IMPRESSION: Increased diffuse patchy opacity throughout both lungs. ACT 112: Negative or not required by law. Electronically signed by: Jesu Morley M.D. 12/16/2024 8:20 AM Medications Administered Current Inpatient Medications Al Hydrox/Mg Hydrox/Simethicone (Aluminum/Magnesium Susp 30 Ml Udc) 15 ml PO Q6H PRN PRN Reason: Heartburn Stop: 12/30/24 05:33 Last Admin: 11/30/24 05:47 Dose: 15 ml Albuterol (Albut/Ipratrop 3mg/0.5mg Neb 3 Ml Vial) 3 ml NEB Q6R [facility]; Protocol Stop: 01/13/25 12:59 Last Admin: 12/16/24 07:07 Dose: Not Given Aspirin (Aspirin 81 Mg Ectab) 81 mg PO QAM [facility] Stop: 12/30/24 08:59 Last Admin: 12/13/24 09:25 Dose: Not Given Atorvastatin Calcium (Atorvastatin 40 Mg Tab) 40 mg PO HS [facility] Stop: 12/29/24 23:33 Last Admin: 12/12/24 20:10 Dose: Not Given Budesonide (Budesonide 0.5 Mg/2 Ml Vial (Pulmicort)) 0.5 mg NEB BIDR [facility] Stop: 01/02/25 18:59 Last Admin: 12/16/24 07:07 Dose: 0.5 mg Fluticasone Propionate (Fluticasone Propionate Na Spr 16 Gm Btl) 1 sprays NA BID [facility] Stop: 01/10/25 20:59 Last Admin: 12/16/24 08:48 Dose: Not Given Formoterol Fumarate (Formoterol 20 Mcg/2 Ml Vial) 20 mcg NEB BIDR [facility] Stop: 01/02/25 18:59 Last Admin: 12/16/24 07:07 Dose: 20 mcg Haloperidol Lactate (Haloperidol Lactate 5 Mg/Ml 1 Ml Vial) 0.5 mg IV Q6H PRN PRN Reason: agitation or anxiety Stop: 01/14/25 14:14 Heparin Sodium (Porcine) (Heparin 100 Unit/Ml 5ml Flush) 5 ml FLUSH PRN PRN PRN Reason: Flush Stop: 01/12/25 07:13 Last Admin: 12/13/24 08:10 Dose: 5 ml Heparin Sodium/Dextrose (Heparin 08736 Unit/500 Ml D5w) 25,000 units in 500 mls @ 21 mls/hr IV .[id number] [facility]; Protocol Stop: 12/29/24 19:44 Last Titration: 12/16/24 06:47 Dose: 1,050 units/hr, 21 mls/hr Pantoprazole Sodium (Protonix) 40 mg in 10 mls @ 5 mls/min IV DAILY [facility] Stop: 01/05/25 15:29 Last Admin: 12/16/24 08:52 Dose: 5 mls/min Trimethoprim/Sulfamethoxazole (320 mg/ Dextrose) 520 mls @ 348.542 mls/hr IV Q8H [facility] Stop: 12/30/24 23:59 Last Infusion: 12/16/24 10:24 Dose: Infused Piperacillin Sod/Tazobactam Sod (Zosyn) 4.5 gm in 100 mls @ 25 mls/hr IV Q8H [facility]; Protocol Stop: 12/19/24 15:59 Last Admin: 12/16/24 07:55 Dose: 25 mls/hr Acetaminophen (Ofirmev) 1,000 mg in 100 mls @ 400 mls/hr IV Q8H PRN PRN Reason: Pain or Fever Stop: 12/16/24 12:30 Voriconazole 292 mg/ Sodium (Chloride) 100 mls @ 50 mls/hr IV Q12H [facility] Stop: 12/16/24 15:59 Last Infusion: 12/16/24 06:39 Dose: Infused Sodium Chloride (Hypertonic Saline 3%) 1,440 mls @ 30 mls/hr IV .Q24H [facility]; Protocol Stop: 12/17/24 13:57 Last Infusion: 12/15/24 18:30 Dose: 20 mls/hr Prochlorperazine 5 mg/ Syringe 5 mls @ 5 mls/min IV Q6H PRN PRN Reason: Nausea And Vomiting Stop: 01/14/25 14:02 Voriconazole 300 mg/ Sodium (Chloride) 100 mls @ 50 mls/hr IV Q12H [facility] Stop: 01/13/25 15:59 Methylprednisolone 20 mg/ (Syringe) 0.32 mls @ 1.5 mls/min IV QAM [facility] Stop: 01/01/25 08:55 Methylprednisolone 30 mg/ (Syringe) 0.48 mls @ 1.5 mls/min IV QAM [facility] Stop: 12/25/24 08:59 Last Admin: 12/16/24 08:55 Dose: 1.5 mls/min Latanoprost (Latanoprost 0.005% Op Soln 2.5 Ml Btl) 1 drops OPR HS [facility] Stop: 12/29/24 23:33 Last Admin: 12/15/24 20:22 Dose: 1 drops Levothyroxine Sodium (Levothyroxine Sodium 50 Mcg Tablet) 50 mcg PO DAILYBB [facility] Stop: 01/09/25 06:29 Last Admin: 12/16/24 06:47 Dose: Not Given Lorazepam (Lorazepam 2 Mg/1 Ml Vial) 0.5 mg IV Q8H PRN PRN Reason: Anxiety/Agitation Stop: 01/05/25 08:37 Last Admin: 12/16/24 00:44 Dose: 0.5 mg Metoprolol Succinate (Metoprolol Succ 25mg Ext Rel Tab) 25 mg PO QAM [facility] Stop: 12/30/24 08:59 Last Admin: 12/12/24 08:15 Dose: Not Given Metoprolol Tartrate (Metoprolol Tartrate 1 Mg/Ml Vial) 2.5 mg IV Q6H [facility] Stop: 01/11/25 08:59 Last Admin: 12/16/24 08:38 Dose: 2.5 mg Metoprolol Tartrate (Metoprolol Tartrate 1 Mg/Ml Vial) 2.5 mg IV Q4 PRN PRN Reason: HR >120 Stop: 01/12/25 12:31 Miscellaneous (Stop Order) 1 each N/A ONE ONE Stop: 12/17/24 09:30 Morphine Sulfate (Morphine Sulfate 2 Mg/Ml Carp) 1 mg IV Q4H PRN PRN Reason: Mod-Sev Pain (Scale 4-10) Stop: 12/19/24 18:11 Last Admin: 12/16/24 09:06 Dose: 1 mg Multi-Ingredient Mouthwash/Gargle (First - Mouthwash Blm 5 Ml Udp) 5 ml PO QID PRN PRN Reason: mouth/throat pain Stop: 01/09/25 20:59 Nystatin (Nystatin Susp 500,000 U/5 Ml Udc) 5 ml PO QID [facility] Stop: 12/18/24 12:59 Last Admin: 12/12/24 08:16 Dose: Not Given Pantoprazole Sodium (Pantoprazole 40 Mg Tab) 40 mg PO DAILY [facility] Stop: 12/30/24 08:59 Last Admin: 12/06/24 11:02 Dose: Not Given Phenol (Chloraseptic (Phenol) 1.4% Soln 180 Ml Btl) 1 sprays MT Q2H PRN PRN Reason: Sore Throat Stop: 01/04/25 11:36 Tamsulosin HCl (Tamsulosin Hcl 0.4 Mg Cap) 0.8 mg PO QPM [facility] Stop: 12/29/24 23:33 Last Admin: 12/12/24 20:01 Dose: Not Given
[2024-12-16 12:51] LABS: Anion Gap 6.0 (3-11); Blood Urea Nitrogen 22.0 mg/dl (6-23); Calcium 8.0 mg/dl (8.6-10.3); Carbon Dioxide 29.0 mmol/L (21-32); Chloride 96.0 mmol/L (98-107); Creatinine Clr Calc Pharmacy 68.6 ml/min; Glucose 148.0 mg/dl (70-99(Fasting)); Potassium 4.3 mmol/L (3.5-5.1); Sodium 131.0 mmol/L (136-145)
[2024-12-16] MEDS: HALOPERIDOL LACTATE 5 MG/ML 1 ML VIAL IV PRN (16:03)
[2024-12-16 16:34] LABS: Anion Gap 6.0 (3-11); Blood Urea Nitrogen 24.0 mg/dl (6-23); Calcium 7.9 mg/dl (8.6-10.3); Carbon Dioxide 27.0 mmol/L (21-32); Chloride 99.0 mmol/L (98-107); Creatinine Clr Calc Pharmacy 66.9 ml/min; Glucose 171.0 mg/dl (70-99(Fasting)); Potassium 4.3 mmol/L (3.5-5.1); Sodium 132.0 mmol/L (136-145)
[2024-12-16] MEDS: VORICONAZOLE IV SCH (17:08)
[2024-12-16] MEDS: HALOPERIDOL LACTATE 5 MG/ML 1 ML VIAL IV STA (17:08)
[2024-12-16] MEDS: SODIUM CHLORIDE 0.9% IV SCH (17:08)
[2024-12-16 18:38] LABS: Aspergillus Antigen, Serum Not Detected (Not Detected); Source Serum
[2024-12-16 20:21] LABS: Anion Gap 8.0 (3-11); Blood Urea Nitrogen 23.0 mg/dl (6-23); Calcium 8.2 mg/dl (8.6-10.3); Carbon Dioxide 26.0 mmol/L (21-32); Chloride 98.0 mmol/L (98-107); Creatinine Clr Calc Pharmacy 70.3 ml/min; Glucose 155.0 mg/dl (70-99(Fasting)); Potassium 4.4 mmol/L (3.5-5.1); Sodium 132.0 mmol/L (136-145)
--- NOTE | 2024-12-16 21:33 | Progress Note ---
<Statement entered by Roger Mayer MD - 12/17/24 07:28> I, Roger Mayer MD, supervised and reviewed the physical exam, assessment, plan, and management provided by the Advanced Care Provider, for this patient encounter. I discussed the case with them, confirmed the findings, and I concur with the proposed plan of care. I was available for consultation throughout the encounter and provided guidance as needed. Date of Service December 16, 2024 Assessment & Plan (1) Acute hypoxic respiratory failure: (2) Pneumocystis jiroveci pneumonia: (3) Adenocarcinoma of lung: Laterality: right Qualified Code(s): C34.91 - Malignant neoplasm of unspecified part of right bronchus or lung (4) Bilateral pulmonary embolism: Plan Patient is an 79-year-old male with a history of right lung adenocarcinoma, coronary artery disease, CAD, pulmonary hypertension, emphysema, hypothyroidism, GERD, hypertension, esophageal varices, TMJ and vitamin D deficiency. The patient follows with Dr. Mcbride in the pulmonary clinic. Was being treated outpatient with chemotherapy in September and received radiation treatment in October. The patient presented to the hospital 11/30/2024 with shortness of breath and lower extremity edema. Imaging on arrival showed bilateral lower lobe subsegmental pulmonary emboli and increasing GGO's in bilateral lung [place]. The patient was started on anticoagulation. He continued to have worsening respiratory failure with hypoxia for which pulmonary was consulted. Echocardiogram did not show evidence of RV strain with the PE. He was started on antibiotics to cover for community-acquired pneumonia and started on Bactrim and IV steroids. The patient continued to be hypoxic and required maximum Optiflow of 60 L and 100%. Steroids were continued and the dose was increased. Antibiotics were broadened to Zosyn and vancomycin. Lasix were added and the patient was aggressively diuresed. The patient had hyponatremia after Bactrim therefore this was discontinued. Urine Legionella was negative therefore atypical coverage with azithromycin was stopped. Sputum culture grew Staphylococcus hemolyticus sensitive to vancomycin and linezolid. Oncology was consulted, due to concern for radiation pneumonitis the plan was to initiate a dose of tocilizumab. However sputum cultures are now showing positive pneumocystis jiroveci PCR therefore tocilizumab has been discontinued and the patient was started on Bactrim. The patient had slightly improved however when examined on 12/12/2024 he was found to be profoundly hypoxic requiring maximum Optiflow in addition to Ventimask and still satting only in the mid 80s. Inflammatory markers and LDH are climbing. Imaging with x-ray appears worse. Infectious workup: CRP: 11.3 on admission, decreased to 1.91, increased to 4.27->16.44->24.4->15 today. Viral PCR negative. Has had multiple COVID and flu tests that are negative. Pneumocystis jiroveci PCR positive from sputum 12/05/2024 LDH elevated, 848->781->988->1033->816->891 today Procalcitonin 0.10>0.05>0.21->0.88 today Beta D glucan level is low. Legionella is negative. Legionella culture is pending. Urine culture with Klebsiella. Blood culture no growth to date. Repeat blood cultures 12/13 are negative. Sputum culture from 12/05/2024 with Staphylococcus hemolyticus sensitive to vancomycin and linezolid. Galactomannan is pending. Cryptococcal Ag is pending. HIV pending. Histoplasma Ag pending. Problem list: Acute hypoxic respiratory failure Staphylococcus haemolyticus pneumonia Pneumocystis jiroveci pneumonia Possible radiation pneumonitis Bilateral subsegmental PE Right lung adenocarcinoma Underlying emphysema Underlying pulmonary hypertension Hyponatremia Assessment: Imaging from admission showed diffuse GGO's, more significant on the right however still present on the left. The patient also was found to have subsegmental PEs. Differential diagnosis included pneumonitis from radiation or chemotherapy versus infectious etiology. Sputum cultures initially only grew Staphylococcus hemolyticus for which the patient was treated appropriately. PCR from his sputum has resulted now and is showing PJP pneumonia. His CT findings with the GGO's could very likely have been PJP initially rather than radiation pneumonitis. At this point I do not think his PEs are really contributing to his hypoxia. He has been anticoagulated appropriately. Echo did not show evidence of RV dysfunction. He has both staph and PJP pneumonia. Both of these are likely contributing to his profound hypoxia. The patient has taken an interval turn for the worse. Chest x-ray today shows worsening of his pulmonary infiltrates. LDH peaked an down slightly today. CRP downtrending today. Has been relying on CPAP for >72 hours now. Off for 2-3 hrs today with HFNC and oxymask. Air hunger and dyspnea treated with morphine and lorazepam. Recommendations/plan: Continue CPAP. Wean for saturation of 88 to 92%. Can continue with optiflow trials as tolerated. Please place gel protective nasal bridge under CPAP mask to prevent tissue breakdown. Remains NPO. If possible switching all of his medications to IV formula would be best. Will have to conisder TPN going forward. Patient has been on high-dose steroids with methylprednisolone, steroids were initiated on 12/03/2024. Given the immunocompromise state and respiratory failure I will continue steroids with the PJP pneumonia. Will do methylprednisolone 30 mg twice daily for 5 days (today is day 5), then decrease to once daily (starting tomorrow) for 10 days and then decrease to 20 mg daily until his course of Bactrim is complete. Continue IV Bactrim for 21 days. The patient did have some hyponatremia previously when he had Bactrim therefore we will need to watch the sodium closely. Sodium is dropping. Added normal saline 12/12 as he is not unable to take p.o. Given the severity of his illness I would prefer not to switch to alternative PJP treatment. Will initiate 3% sodium chloride today at 30 cc/hr and monitor NA Q4H. Will trend LDH daily. Will trend CRP and Procal. Infectious diseases consulted. Recommend continuing current regimen. Patient should remain on GI prophylaxis while on steroids. Will give 1 dose of lasix 40 mg today. Completed vancomycin for the staph pneumonia. Zosyn added back 12/12. Voriconazole added 12/12 for possible fungal/mold infection. Patient remains critically ill with a generally poor prognosis. CODE STATUS is DNR/DNI. Called patient's today to discuss goals of care and overall clinical picture. Patient's states she understands the concerns and lack of progress. She will talk with her daughter and we will meet tomorrow am to further discussions. Thank you for this consultation, I will continue to follow along with you. 40 minutes was the time spent reviewing the chart, obtaining history, performing the clinical exam, and updating the patient, family, and bedside nurse. Admission and Anticipated Discharge Date Admission Date: November 29, 2024 Subjective Patient remains on CPAP continuously. Attempted HFNC this am for 2-3 hours. Patient did have significant desaturation after coming off bipap. Oxy mask applied over HFNC with some improvement. Patient placed back on CPAP. Chest X-ray showed worsening bilateral pulmonary infiltrates. Patient continues on zosyn, bactrim, methylprednisolone, voriconazole. Patient started on 3% due to hyponatremia likely secondary to bactrim. Goals of care discussions this afternoon with plan to meet with patient's tomorrow am. Review of Systems 2 Review of Systems: All systems reviewed & are unremarkable except as noted in HPI & below Physical Exam 2 Physical Exam: VITALS: Reviewed. WEIGHT/BMI reviewed. GEN: Chronically ill, states age appearing, well-developed, NAD. PSYCH: AOx3. Normal memory, mood, and affect. HEENT -Head: NC/AT; -Eyes: PERRL, EOMI. No discharge or redn ess; -Ears: External ears are normal. -Nose: Normal nares. NECK: Supple, with no masses. CV: RRR, no m/r/g. LUNGS: Rhonchi appreciated in b/l lung [place]. Chest rise symmetrical. Breathing labored. ABD: Soft, NT/ND, NBS, no masses or organomegaly. : N/A SKIN: Warm, well perfused. No skin rashes or abnormal lesions. MSK: No deformities, Normal gait. EXT: No clubbing, cyanosis, or edema. NEURO: Lethargic, generally weak, No focal deficits. Results & Data Vital Signs (Past 12 Hours) Vital Signs Temp Pulse Pulse Resp BP BP BP 12/16/24 20:48 12/16/24 20:12 104 H 160/78 H 12/16/24 19:57 108 H 164/81 H 12/16/24 19:19 36.6 C 106 H 18 164/81 H 12/16/24 15:55 100 H 151/85 H 12/16/24 15:45 108 H 25 H 12/16/24 15:40 109 H 144/93 H 12/16/24 15:36 36.6 C 109 H 20 157/76 H 12/16/24 14:29 135 H 12/16/24 12:52 99 H 27 H 12/16/24 11:47 36.4 C L 99 H 19 147/87 H 12/16/24 11:10 110 H 28 H 12/16/24 10:15 Pulse Ox O2 Del Method O2 Flow Rate FiO2 12/16/24 20:48 CPAP 70 12/16/24 20:12 12/16/24 19:57 12/16/24 19:19 92 CPAP 12/16/24 15:55 12/16/24 15:45 93 65 12/16/24 15:40 12/16/24 15:36 91 CPAP 12/16/24 14:29 12/16/24 12:52 88 L CPAP 60 12/16/24 11:47 96 CPAP 12/16/24 11:10 96 85 12/16/24 10:15 94 Oxymask, High Flow Nasal Cannula 60 Laboratory Results 12/16/24 04:16 12/16/24 19:50 Abnormal Lab Results 12/12/24 12/16/24 12/16/24 11:07 00:17 04:16 WBC 7.98 RBC 2.68 L Hgb 7.9 L Hct 25.1 L MCV 93.7 MCH 29.5 MCHC 31.5 L RDW Std Deviation 65.8 H RDW Coeff of Joesph 19.4 H Plt Count 129 L MPV 10.8 Immature Gran % (Auto) 1.5 Neut % (Auto) 94.6 Lymph % (Auto) 1.4 [place] % (Auto) 2.5 Eos % (Auto) 0.0 Baso % (Auto) 0.0 Neut # (Auto) 7.55 H Lymph # (Auto) 0.11 L [place] # (Auto) 0.20 Eos # (Auto) 0.00 Baso # (Auto) 0.00 Immature Gran # (Auto) 0.12 Polychromasia 1+ Basophilic Stippling 1+ Heparin Anti-Xa, Unfract 0.50 Sodium 131 L 130 L Potassium 4.5 Chloride 100 Carbon Dioxide 28 Anion Gap 3 BUN 21 Creatinine 0.80 Est Cr Clr Drug Dosing 67.7 eGFR 88.91 BUN/Creatinine Ratio 26.3 H Glucose 107 H Calcium 8.0 L Lactate Dehydrogenase C-Reactive Protein Cryptococcus Source Serum Cryptococcal Ag (Latex) Not Detected A. galactomannan Ag Not Detected A. galactomannan Ag Idx 0.05 12/16/24 12/16/24 12/16/24 04:16 04:16 04:16 WBC RBC Hgb Hct MCV MCH MCHC RDW Std Deviation RDW Coeff of Joesph Plt Count MPV Immature Gran % (Auto) Neut % (Auto) Lymph % (Auto) [place] % (Auto) Eos % (Auto) Baso % (Auto) Neut # (Auto) Lymph # (Auto) [place] # (Auto) Eos # (Auto) Baso # (Auto) Immature Gran # (Auto) Polychromasia Basophilic Stippling Heparin Anti-Xa, Unfract Sodium 132 L Potassium 4.5 4.5 Chloride 98 100 Carbon Dioxide 28 Anion Gap BUN Creatinine Est Cr Clr Drug Dosing eGFR BUN/Creatinine Ratio Glucose Calcium Lactate Dehydrogenase C-Reactive Protein Cryptococcus Source Cryptococcal Ag (Latex) A. galactomannan Ag A. galactomannan Ag Idx 12/16/24 12/16/24 12/16/24 04:16 04:16 04:16 WBC RBC Hgb Hct MCV MCH MCHC RDW Std Deviation RDW Coeff of Joesph Plt Count MPV Immature Gran % (Auto) Neut % (Auto) Lymph % (Auto) [place] % (Auto) Eos % (Auto) Baso % (Auto) Neut # (Auto) Lymph # (Auto) [place] # (Auto) Eos # (Auto) Baso # (Auto) Immature Gran # (Auto) Polychromasia Basophilic Stippling Heparin Anti-Xa, Unfract Sodium Potassium Chloride Carbon Dioxide 27 Anion Gap 4 5 BUN 21 20 Creatinine 0.78 Est Cr Clr Drug Dosing eGFR BUN/Creatinine Ratio Glucose Calcium Lactate Dehydrogenase C-Reactive Protein Cryptococcus Source Cryptococcal Ag (Latex) A. galactomannan Ag A. galactomannan Ag Idx 12/16/24 12/16/24 12/16/24 04:16 04:16 04:16 WBC RBC Hgb Hct MCV MCH MCHC RDW Std Deviation RDW Coeff of Joesph Plt Count MPV Immature Gran % (Auto) Neut % (Auto) Lymph % (Auto) [place] % (Auto) Eos % (Auto) Baso % (Auto) Neut # (Auto) Lymph # (Auto) [place] # (Auto) Eos # (Auto) Baso # (Auto) Immature Gran # (Auto) Polychromasia Basophilic Stippling Heparin Anti-Xa, Unfract Sodium Potassium Chloride Carbon Dioxide Anion Gap BUN Creatinine 0.78 Est Cr Clr Drug Dosing 69.4 69.4 eGFR 89.59 89.59 BUN/Creatinine Ratio 26.9 H Glucose Calcium Lactate Dehydrogenase C-Reactive Protein Cryptococcus Source Cryptococcal Ag (Latex) A. galactomannan Ag A. galactomannan Ag Idx 12/16/24 12/16/24 12/16/24 04:16 04:16 04:16 WBC RBC Hgb Hct MCV MCH MCHC RDW Std Deviation RDW Coeff of Joesph Plt Count MPV Immature Gran % (Auto) Neut % (Auto) Lymph % (Auto) [place] % (Auto) Eos % (Auto) Baso % (Auto) Neut # (Auto) Lymph # (Auto) [place] # (Auto) Eos # (Auto) Baso # (Auto) Immature Gran # (Auto) Polychromasia Basophilic Stippling Heparin Anti-Xa, Unfract Sodium Potassium Chloride Carbon Dioxide Anion Gap BUN Creatinine Est Cr Clr Drug Dosing eGFR BUN/Creatinine Ratio 25.6 H Glucose 146 H 148 H Calcium 7.9 L 7.9 L Lactate Dehydrogenase 811 H C-Reactive Protein Cryptococcus Source Cryptococcal Ag (Latex) A. galactomannan Ag A. galactomannan Ag Idx 12/16/24 12/16/24 12/16/24 07:40 12:14 16:00 WBC RBC Hgb Hct MCV MCH MCHC RDW Std Deviation RDW Coeff of Joesph Plt Count MPV Immature Gran % (Auto) Neut % (Auto) Lymph % (Auto) [place] % (Auto) Eos % (Auto) Baso % (Auto) Neut # (Auto) Lymph # (Auto) [place] # (Auto) Eos # (Auto) Baso # (Auto) Immature Gran # (Auto) Polychromasia Basophilic Stippling Heparin Anti-Xa, Unfract Sodium 132 L 131 L 132 L Potassium 4.7 4.3 4.3 Chloride 100 96 L 99 Carbon Dioxide 29 29 27 Anion Gap 3 6 6 BUN 21 22 24 H Creatinine 0.74 0.79 0.81 Est Cr Clr Drug Dosing 73.2 68.6 66.9 eGFR 91.03 89.25 88.58 BUN/Creatinine Ratio 28.4 H 27.8 H 29.6 H Glucose 114 H 148 H 171 H Calcium 8.0 L 8.0 L 7.9 L Lactate Dehydrogenase C-Reactive Protein 8.47 H Cryptococcus Source Cryptococcal Ag (Latex) A. galactomannan Ag A. galactomannan Ag Idx 12/16/24 19:50 WBC RBC Hgb Hct MCV MCH MCHC RDW Std Deviation RDW Coeff of Joesph Plt Count MPV Immature Gran % (Auto) Neut % (Auto) Lymph % (Auto) [place] % (Auto) Eos % (Auto) Baso % (Auto) Neut # (Auto) Lymph # (Auto) [place] # (Auto) Eos # (Auto) Baso # (Auto) Immature Gran # (Auto) Polychromasia Basophilic Stippling Heparin Anti-Xa, Unfract Sodium 132 L Potassium 4.4 Chloride 98 Carbon Dioxide 26 Anion Gap 8 BUN 23 Creatinine 0.77 Est Cr Clr Drug Dosing 70.3 eGFR 89.94 BUN/Creatinine Ratio 29.9 H Glucose 155 H Calcium 8.2 L Lactate Dehydrogenase C-Reactive Protein Cryptococcus Source Cryptococcal Ag (Latex) A. galactomannan Ag A. galactomannan Ag Idx Diagnostic Findings Chest X-Ray 12/16/24 07:44 XR chest 1V portable CLINICAL HISTORY: hypoxia COMPARISON STUDY: 12/14/2024 FINDINGS: Stable CABG. Stable cardiomegaly. There is diffuse patchy opacity throughout both lungs, increased at the left lower lung. No pneumothorax. Stable mild blunting of the right costophrenic angle. Stable left chest port. IMPRESSION: Increased diffuse patchy opacity throughout both lungs. ACT 112: Negative or not required by law. Electronically signed by: Jesu Morley M.D. 12/16/2024 8:20 AM PG Care Time/CCT Total # of Minutes Spent Total Time Spent with Patient: Total time spent is greater than 50% in coordination of care (as documented) at patient's floor/unit and/or counseling patient: Coding Level of Care Code 47577 SUB INP/OBS CARE 2/35MIN Diagnoses Acute hypoxic respiratory failure J96.01 Pneumocystis jiroveci pneumonia B59 Adenocarcinoma of right lung C34.91 Laterality: right Bilateral pulmonary embolism I26.99
[2024-12-17] MEDS: SODIUM CHLORIDE 3 % 500 ML IV SCH (02:18)
[2024-12-17 03:40] LABS: Hematocrit (blood only) 26.0 % (42.0-52.0); Hemoglobin 8.1 g/dl (14.0-18.0); Mean Corpuscular Hemoglobin 29.1 pg (25.0-34.0); Mean Corpuscular Volume 93.5 fL (80.0-100.0); Platelet Count 141 K/uL (130-400); RDW Standard Deviation 65.3 fL (36.4-46.3); Red Blood Count 2.78 M/uL (4.70-6.10); White Blood Count 10.54 K/ul (4.8-10.8)
[2024-12-17 03:57] LABS: Anion Gap 5.0 (3-11); Blood Urea Nitrogen 20.0 mg/dl (6-23); Calcium 8.0 mg/dl (8.6-10.3); Carbon Dioxide 27.0 mmol/L (21-32); Chloride 100.0 mmol/L (98-107); Creatinine Clr Calc Pharmacy 73.2 ml/min; Glucose 161.0 mg/dl (70-99(Fasting)); Potassium 4.3 mmol/L (3.5-5.1); Sodium 132.0 mmol/L (136-145)
[2024-12-17 04:02] LABS: ANTI-Xa, UFH(UnfractionatedHep 0.60 IU/ml (0.3-0.7)
[2024-12-17 05:35] LABS: Base Excess VBG -0.7 mEq/L; HCO3 VBG 26 mmol/L; Oxygen Saturation VBG 78.5 %; PCO2 VBG 49 mmHg (38-50); PO2 VBG 46 mmHg; pH VBG 7.33 (7.36-7.41)
[2024-12-17 08:16] LABS: Anion Gap 3.0 (3-11); Blood Urea Nitrogen 22.0 mg/dl (6-23); Calcium 8.2 mg/dl (8.6-10.3); Carbon Dioxide 30.0 mmol/L (21-32); Chloride 102.0 mmol/L (98-107); Creatinine Clr Calc Pharmacy 73.2 ml/min; Glucose 142.0 mg/dl (70-99(Fasting)); Potassium 4.6 mmol/L (3.5-5.1); Sodium 135.0 mmol/L (136-145)
[2024-12-17] MEDS: POTASSIUM CHLORIDE / WTR 20 MEQ/100 ML PLCT IV ONE (10:01)
[2024-12-17] MEDS: FUROSEMIDE 40 MG/4 ML VIAL IV SCH (10:11)
--- NOTE | 2024-12-17 11:20 | Pulmonology Progress Note ---
<Statement entered by Roger Mayer MD - 12/17/24 15:42> I, Roger Mayer MD, supervised and reviewed the physical exam, assessment, plan, and management provided by the Advanced Care Provider, for this patient encounter. I discussed the case with them, confirmed the findings, and I concur with the proposed plan of care. I was available for consultation throughout the encounter and provided guidance as needed. Total time spent is greater than 50% in coordination of care (as documented) at patient's floor/unit and/or counseling patient, independent of time spent on separately-billable procedures: 35 minutes Date of Service December 17, 2024 Assessment & Plan (1) Acute hypoxic respiratory failure: (2) Pneumocystis jiroveci pneumonia: (3) Adenocarcinoma of lung: Laterality: right Qualified Code(s): C34.91 - Malignant neoplasm of unspecified part of right bronchus or lung (4) Bilateral pulmonary embolism: Plan Patient is an 79-year-old male with a history of right lung adenocarcinoma, coronary artery disease, CAD, pulmonary hypertension, emphysema, hypothyroidism, GERD, hypertension, esophageal varices, TMJ and vitamin D deficiency. The patient follows with Dr. Mcbride in the pulmonary clinic. Was being treated outpatient with chemotherapy in September and received radiation treatment in October. The patient presented to the hospital 11/30/2024 with shortness of breath and lower extremity edema. Imaging on arrival showed bilateral lower lobe subsegmental pulmonary emboli and increasing GGO's in bilateral lung christians[place]. The patient was started on anticoagulation. He continued to have worsening respiratory failure with hypoxia for which pulmonary was consulted. Echocardiogram did not show evidence of RV strain with the PE. He was started on antibiotics to cover for community-acquired pneumonia and started on Bactrim and IV steroids. The patient continued to be hypoxic and required maximum Optiflow of 60 L and 100%. Steroids were continued and the dose was increased. Antibiotics were broadened to Zosyn and vancomycin. Lasix were added and the patient was aggressively diuresed. The patient had hyponatremia after Bactrim therefore this was discontinued. Urine Legionella was negative therefore atypical coverage with azithromycin was stopped. Sputum culture grew Staphylococcus hemolyticus sensitive to vancomycin and linezolid. Oncology was consulted, due to concern for radiation pneumonitis the plan was to initiate a dose of tocilizumab. However sputum cultures are now showing positive pneumocystis jiroveci PCR therefore tocilizumab has been discontinued and the patient was started on Bactrim. The patient had slightly improved however when examined on 12/12/2024 he was found to be profoundly hypoxic requiring maximum Optiflow in addition to Ventimask and still satting only in the mid 80s. Inflammatory markers and LDH are climbing. Imaging with x-ray appears worse. Assessment: Imaging from admission showed diffuse GGO's, more significant on the right however still present on the left. The patient also was found to have subsegmental PEs. Differential diagnosis included pneumonitis from radiation or chemotherapy versus infectious etiology. Sputum cultures initially only grew Staphylococcus hemolyticus for which the patient was treated appropriately. PCR from his sputum has resulted now and is showing PJP pneumonia. His CT findings with the GGO's could very likely have been PJP initially rather than radiation pneumonitis. At this point I do not think his PEs are really contributing to his hypoxia. He has been anticoagulated appropriately. Echo did not show evidence of RV dysfunction. He has both staph and PJP pneumonia. Both of these are likely contributing to his profound hypoxia. The patient has taken an interval turn for the worse. Chest x-ray today shows worsening of his pulmonary infiltrates. LDH peaked an down slightly today. CRP downtrending today. Has been relying on CPAP for >72 hours now. Off for 2-3 hrs today with HFNC and oxymask. Air hunger and dyspnea treated with morphine and lorazepam. Recommendations/plan: Continue CPAP. Wean for saturation of 88 to 92%. Can continue with optiflow trials as tolerated. Please place gel protective nasal bridge under CPAP mask to prevent tissue breakdown. Remains NPO. If possible switching all of his medications to IV formula would be best. Will have to conisder TPN going forward. Patient has been on high-dose steroids with methylprednisolone, steroids were initiated on 12/03/2024. Given the immunocompromise state and respiratory failure continue steroids with the PJP pneumonia. Will do methylprednisolone 30 mg once daily for 10 days and then decrease to 20 mg daily until his course of Bactrim is complete. Continue IV Bactrim for 21 days. The patient did have some hyponatremia previously when he had Bactrim therefore we will need to watch the sodium closely. Sodium is dropping. Added normal saline 12/12 as he is not unable to take p.o. Given the severity of his illness I would prefer not to switch to alternative PJP treatment. Will initiate 3% sodium chloride today at 30 cc/hr and monitor NA Q4H. Infectious diseases consulted. Recommend continuing current regimen. Patient should remain on GI prophylaxis while on steroids. Completed vancomycin for the staph pneumonia. Zosyn added back 12/12. Voriconazole added 12/12 for possible fungal/mold infection. Patient remains critically ill with a generally poor prognosis. CODE STATUS is DNR/DNI. Thank you for this consultation, I will continue to follow along with you. 45 minutes was the time spent reviewing the chart, obtaining history, performing the clinical exam, and updating the patient, family, and bedside nurse. Admission and Anticipated Discharge Date Admission Date: November 29, 2024 Subjective Patient obtunded this am. Remains reliant on CPAP continuously with SpO2 in the 88-90% range on 65%. Met with patient's and daughter at bedside to discuss goals of care. Discussed current clinical picture as well as recaped the clinical course. Discussed that unfortunately the likelihood of any meaningful recovery was nonexistent. As well as the unfortunate fact that even if he would make it out of this that he would have lung cancer with no good options for treatment. Family understood and expressed that the last few weeks the patient's biggest fear was that he would struggle to breath and that all he has wanted most recently was morphine. Meeting was concluded as family wanted to discuss amongst themselves next steps. Will continue to follow regarding goals of care. Review of Systems 2 Review of Systems: Unobtainable due to reduced consciousness Physical Exam 2 Physical Exam: VITALS: Reviewed. WEIGHT/BMI reviewed. GEN: Chronically ill, states age appearing, well-developed, NAD. PSYCH: Obtunded/unresponsive HEENT -Head: NC/AT; -Eyes: PERRL, EOMI. No discharge or redn ess; -Ears: External ears are normal. -Nose: Normal nares. NECK: Supple, with no masses. CV: Tachycardic, S1/S2 present, no m/r/g LUNGS: Rhonchi appreciated in b/l lung christians[place]. Chest rise symmetrical. Breathing labored. ABD: Soft, NT/ND, NBS, no masses or organomegaly. : N/A SKIN: Warm, well perfused. No skin rashes or abnormal lesions. MSK: No deformities, Normal gait. EXT: No clubbing, cyanosis, or edema. NEURO: Lethargic, generalized weakness, not following, No focal deficits. Results & Data Results & Data Vital Signs (Past 12 Hours) Vital Signs Temp Pulse Pulse Resp BP BP Pulse Ox 12/17/24 10:53 36.3 C L 93 H 24 110/75 90 12/17/24 10:30 99 H 113/75 12/17/24 07:43 36.4 C L 122 H 26 H 157/94 H 89 L 12/17/24 07:31 132 H 25 H 89 L 12/17/24 07:30 132 H 25 H 91 12/17/24 07:00 105 H 12/17/24 07:00 12/17/24 03:26 36.3 C L 103 H 20 146/89 H 93 12/17/24 03:19 88 26 H 92 12/17/24 03:00 91 H 145/83 H 12/17/24 02:17 105 H 12/17/24 00:55 99 H 26 H 91 12/16/24 23:58 90 27 H 93 12/16/24 23:26 102 H 28 H 92 O2 Del Method O2 Flow Rate FiO2 12/17/24 10:53 CPAP 12/17/24 10:30 12/17/24 07:43 CPAP 12/17/24 07:31 65 12/17/24 07:30 CPAP 65 12/17/24 07:00 12/17/24 07:00 CPAP 65 12/17/24 03:26 CPAP 12/17/24 03:19 70 12/17/24 03:00 12/17/24 02:17 12/17/24 00:55 CPAP 70 12/16/24 23:58 CPAP 70 12/16/24 23:26 70 Laboratory Results 12/17/24 03:21 12/17/24 07:40 Abnormal Lab Results 12/12/24 12/16/24 12/16/24 11:07 12:14 16:00 WBC RBC Hgb Hct MCV MCH MCHC RDW Std Deviation RDW Coeff of Joesph Plt Count MPV Heparin Anti-Xa, Unfract VBG pH VBG pCO2 VBG pO2 VBG HCO3 VBG O2 Saturation VBG Base Excess Sodium 131 L 132 L Potassium 4.3 4.3 Chloride 96 L 99 Carbon Dioxide 29 27 Anion Gap 6 6 BUN 22 24 H Creatinine 0.79 0.81 Est Cr Clr Drug Dosing 68.6 66.9 eGFR 89.25 88.58 BUN/Creatinine Ratio 27.8 H 29.6 H Glucose 148 H 171 H Calcium 8.0 L 7.9 L Lactate Dehydrogenase C-Reactive Protein Cryptococcus Source Serum Cryptococcal Ag (Latex) Not Detected A. galactomannan Ag Not Detected A. galactomannan Ag Idx 0.05 12/16/24 12/17/24 12/17/24 19:50 03:21 05:28 WBC 10.54 RBC 2.78 L Hgb 8.1 L Hct 26.0 L MCV 93.5 MCH 29.1 MCHC 31.2 L RDW Std Deviation 65.3 H RDW Coeff of Joesph 19.2 H Plt Count 141 MPV 10.9 Heparin Anti-Xa, Unfract 0.60 VBG pH 7.33 L VBG pCO2 49 VBG pO2 46 VBG HCO3 26 VBG O2 Saturation 78.5 VBG Base Excess -0.7 Sodium 132 L 132 L Potassium 4.4 4.3 Chloride 98 100 Carbon Dioxide 26 27 Anion Gap 8 5 BUN 23 20 Creatinine 0.77 0.74 Est Cr Clr Drug Dosing 70.3 73.2 eGFR 89.94 91.03 BUN/Creatinine Ratio 29.9 H 27.0 H Glucose 155 H 161 H Calcium 8.2 L 8.0 L Lactate Dehydrogenase C-Reactive Protein 5.45 H Cryptococcus Source Cryptococcal Ag (Latex) A. galactomannan Ag A. galactomannan Ag Idx 12/17/24 07:40 WBC RBC Hgb Hct MCV MCH MCHC RDW Std Deviation RDW Coeff of Joesph Plt Count MPV Heparin Anti-Xa, Unfract VBG pH VBG pCO2 VBG pO2 VBG HCO3 VBG O2 Saturation VBG Base Excess Sodium 135 L Potassium 4.6 Chloride 102 Carbon Dioxide 30 Anion Gap 3 BUN 22 Creatinine 0.74 Est Cr Clr Drug Dosing 73.2 eGFR 91.03 BUN/Creatinine Ratio 29.7 H Glucose 142 H Calcium 8.2 L Lactate Dehydrogenase 755 H C-Reactive Protein Cryptococcus Source Cryptococcal Ag (Latex) A. galactomannan Ag A. galactomannan Ag Idx Diagnostic Findings No recent imaging. PG Care Time/CCT Total # of Minutes Spent Total Time Spent with Patient: Total time spent is greater than 50% in coordination of care (as documented) at patient's floor/unit and/or counseling patient: Coding Level of Care Code 35825 SUB INP/OBS CARE 2/35MIN Diagnoses Acute hypoxic respiratory failure J96.01 Pneumocystis jiroveci pneumonia B59 Adenocarcinoma of right lung C34.91 Laterality: right Bilateral pulmonary embolism I26.99
[2024-12-17] MEDS ORDERED: TPN/PPN CONSULT PHARMACY STA (11:50)
[2024-12-17 12:20] LABS: Hematocrit (blood only) 28.1 % (42.0-52.0); Hemoglobin 8.7 g/dl (14.0-18.0); Mean Corpuscular Hemoglobin 29.4 pg (25.0-34.0); Mean Corpuscular Volume 94.9 fL (80.0-100.0); Platelet Count 145 K/uL (130-400); RDW Standard Deviation 67.3 fL (36.4-46.3); Red Blood Count 2.96 M/uL (4.70-6.10); White Blood Count 13.94 K/ul (4.8-10.8)
[2024-12-17] MEDS ORDERED: TPN/PPN CONSULT PHARMACY SCH (12:20)
[2024-12-17] MEDS: STOP ORDER ONE (12:35)
[2024-12-17 12:40] LABS: Alanine Aminotransferase 27.0 U/L (7-52); Alkaline Phosphatase 394.0 U/L (34-104); Bilirubin,Total 0.5 mg/dl (0.2-1.0); Magnesium 2.0 mg/dl (1.7-2.4); Triglycerides 109.0 mg/dl (0-150)
[2024-12-17 12:41] LABS: Alanine Aminotransferase 27.0 U/L (7-52); Alkaline Phosphatase 379.0 U/L (34-104); Anion Gap 5.0 (3-11); Bilirubin,Total 0.5 mg/dl (0.2-1.0); Blood Urea Nitrogen 23.0 mg/dl (6-23); Calcium 8.3 mg/dl (8.6-10.3); Carbon Dioxide 29.0 mmol/L (21-32); Chloride 102.0 mmol/L (98-107); Creatinine Clr Calc Pharmacy 64.5 ml/min; Glucose 130.0 mg/dl (70-99(Fasting)); Magnesium 1.9 mg/dl (1.7-2.4); Potassium 5.0 mmol/L (3.5-5.1); Sodium 136.0 mmol/L (136-145); Triglycerides 110.0 mg/dl (0-150)
[2024-12-17] MEDS ORDERED: ALBUT/IPRATROP 3MG/0.5MG NEB 3 ML VIAL NEB PRN (13:07)
--- NOTE | 2024-12-17 15:44 | Billing Data ---
Date of Service December 17, 2024 Coding Level of Care Code 17379 SUB INP/OBS CARE 2/35MIN Time Spent (min) 35 Comment Acute hypoxic respiratory failure; Pneumocystis jiroveci pneumonia; Adenocarcinoma of lung
[2024-12-17 15:59] LABS: Anion Gap 4.0 (3-11); Blood Urea Nitrogen 23.0 mg/dl (6-23); Calcium 8.3 mg/dl (8.6-10.3); Carbon Dioxide 31.0 mmol/L (21-32); Chloride 99.0 mmol/L (98-107); Creatinine Clr Calc Pharmacy 60.2 ml/min; Glucose 179.0 mg/dl (70-99(Fasting)); Potassium 5.0 mmol/L (3.5-5.1); Sodium 134.0 mmol/L (136-145)
[2024-12-17 17:58] LABS: Fungitell (1-3)-B-D-Glucan <31 pg/mL (<60); Fungitell Interpretation Negative
--- NOTE | 2024-12-17 18:29 | Hospitalist Progress Note ---
Date of Service December 17, 2024 Assessment & Plan (1) Pneumocystis jiroveci pneumonia: (2) Pneumonitis: (3) Acute hypoxic respiratory failure: (4) Bilateral pulmonary embolism: (5) Atrial fibrillation with rapid ventricular response: (6) Adenocarcinoma of lung: (7) CAD (coronary artery disease): Plan 79yo male with lung cancer with metastatic disease to mediastinal lymph nodes, CAD s/p 2V CABG, porcine MVR and maze procedure in March 2024, paroxysmal atrial fibrillation, COPD presented with two weeks of progressive SOB and LE edema. Patient hypoxic to 88% on room air on arrival. Bilateral pulmonary emboli and b/l groundglass infiltrates seen on CTA chest on 11/29/24. complex hospital course. Since admission developed severe acute hypoxic respiratory failure and multifocal pneumonia. Steroids and treatment for PJP were initiated. He has been on and off of broad-spectrum antibiotics throughout the stay. Since late last week he has been CPAP dependent and has had progressive slow decline. Maintaining sats and CO2, however, breathing more labored and now poorly responsive #Acute hypoxic respiratory failure - severe, Remains critically ill and highly medically complex decision making required. -multifactorial including b/l PEs, PJP infection, staph haemolyticus pneumonia, acute on chronic HFpEF, possible radiation pneumonitis, COPD -respiratory biofire negative 11/29 -COVID/flu/RSV negative 12/05 -legionella urine ag negative, culture not collected (no sputum) -other pending labs per ID -he had been on broad-spectrum IV antibiotics and was diuresed earlier this admission; finished 5-day course of azithromycin previously -completed 7 days of vancomycin on 12/13 for possible staph haemolyticus pneumonia -briefly was on Bactrim earlier this admission, Bactrim resumed for PJP - 21 day course 12/10-12/31 with concomitant steroids -pip-tazo added 12/12 for possible aspiration on that date -per pulmonary recs: solumedrol 30 IV q 12h for five days, decrease to daily 12/16 x 10 days, then decrease to 20 mg daily until bactrim complete. Taper ordered through 01/01. -voriconazole started 12/13 -CRP has significantly improved and LDH is unchanged at 800s -pulmonary and infectious disease consultingdiscussed with pulmonary 12/17 -increased lasix 40 mg IV bid -CXR was much worse 12/16 # hyponatremiaworsening hyponatremia probably related to Bactrim, also happened earlier in the stay when he was on Bactrim before because of the severity of his illness we are hesitant to change treatment for the PJP 12/15 initiated 3% saline, Na increased from 127-->135 over 48h. 20 mL/h stable, 30 mL/h slow increase -stopped 3% saline, monitor. 4pm 134 #FEN - see GOC discussion at bottom. Has had prolonged npo and no sign of getting off CPAP. Discussed with pharmacist - not able while he is needing hypertonic saline and unstable electrolytes. Holding 3% saline and monitoring overnight to see whether feasible to stop. I think a reasonable goal is to maintain around 130. AM TPN labs. Further discussion tomorrow. # acute toxic/metabolic encephalopathy - related to severe hypoxia, critical illness, medications needed for comfort (morphine, lorazepam). - poorly arousable #Atrial fibrillation with RVR -previous history of a.fib and underwent Maze procedure with his CABG and MVR in 03/2024 -echo with preserved EF, TSH wnl -continues in/out of afib, continue metoprolol 2.5 mg IV q6h and PRN rate is adequately controlled 90-120 range for his severity of illness #Bilateral subsegmental pulmonary emboli - -Continue heparin drip -thrombocytopenia resolved #Adenocarcinoma of the lung - IIIb. -s/p chemotherapy and XRT with pause in chemotherapy in September 2024 due to cytopenias -was planning to start immunotherapy in December -primary oncologist - [facility] #antineoplastic chemotherapy induced pancytopenia - -s/p 1 unit PRBCs on 12/07 -recent B12/folate wnl -recent Fe panel c/w acute phase reactant - CBC notable for leukocytosis and platelets now normal. Hg adequate #CAD #Hypertension #Hyperlipidemia -s/p CABG x 2V performed in March 2024 as well as mitral valve replacement with porcine valve and maze procedure -Echo 12/02 - preserved EF, bioprosthetic MVR functioning well -oral meds held - aspirin, atorvastatin, Metoprolol -stable #Hypothyroidism - -TSH wnl -NPO so levothyroxine held, IV if prolonged hold #Emphysema/COPD - -Continue nebs -Continue IV solumedrol #GERD -Continue Protonix IV #BPH - -resume flomax if taking po #DVT ppx - -heparin drip critically ill and overall worsened compared to 24-48h ago, prognosis very poor. very complex medical decision making I had discussions with his and daughter in the room today wrt goals of care. He is worsening despite maximum support. We discussed what comfort measures would look like. At this time they want to give him until this weekend to see if he can improve. They understand he could precipitously worsen at any time and if so we would have to move to comfort measures. They wish to initiate TPN in the meantime, I did discuss that would be technically difficult becuse of volume status and hyponatremia. nasal feeding tube not a good option with the CPAP dependence. Admission and Anticipated Discharge Date Admission Date: November 29, 2024 Subjective Breathing pattern looks worse today, more labored Remains poorly responsive - eye opening Physical Exam 2 Physical Exam: Last 24h vitals reviewed GEN: looks worse, on CPAP HEENT: pupils equal, sclerae anicteric, dry MM RESP: resp look more labored, scattered crackles posteriorly throughout CV: tachycardic pseudo regular ABD: soft/nt/nd +BT : Johnson catheter SKIN: warm and dry, no generalized rashes EXT: wwp no peripheral edema NEURO: opens eyes only Results & Data Results & Data Vital Signs (Past 12 Hours) Vital Signs Temp Pulse Pulse Resp BP BP Pulse Ox 12/17/24 16:38 28 H 120/73 91 12/17/24 16:27 35.5 C L 100 H 28 H 109/72 90 12/17/24 15:58 100 H 120/73 12/17/24 15:45 110 H 26 H 90 12/17/24 15:43 129 H 122/79 12/17/24 15:00 104 H 12/17/24 11:26 101 H 23 90 12/17/24 10:53 36.3 C L 93 H 24 110/75 90 12/17/24 10:30 99 H 113/75 12/17/24 07:43 36.4 C L 122 H 26 H 157/94 H 89 L 12/17/24 07:31 132 H 25 H 89 L 12/17/24 07:30 132 H 25 H 91 12/17/24 07:00 105 H 12/17/24 07:00 O2 Del Method O2 Flow Rate FiO2 12/17/24 16:38 CPAP 12/17/24 16:27 CPAP 12/17/24 15:58 12/17/24 15:45 70 12/17/24 15:43 12/17/24 15:00 12/17/24 11:26 65 12/17/24 10:53 CPAP 12/17/24 10:30 12/17/24 07:43 CPAP 12/17/24 07:31 65 12/17/24 07:30 CPAP 65 12/17/24 07:00 12/17/24 07:00 CPAP 65 Laboratory Results 12/17/24 12:06 12/17/24 15:27 vbg 7.33/49 CRP 5.5 Na 135-->134 at 4pm PG Care Time/CCT Total # of Minutes Spent Total Time Spent with Patient: Total time spent is greater than 50% in coordination of care (as documented) at patient's floor/unit and/or counseling patient: Coding Level of Care Code 11654 SUB INP/OBS CARE 3/50MIN Diagnoses Pneumocystis jiroveci pneumonia B59 Pneumonitis J98.4 Acute hypoxic respiratory failure J96.01 Bilateral pulmonary embolism I26.99 Atrial fibrillation with rapid ventricular response I48.91 Adenocarcinoma of right lung C34.91 Laterality: right CAD (coronary artery disease) I25.10 (6) Adenocarcinoma of lung Laterality: right Qualified Code(s): C34.91 - Malignant neoplasm of unspecified part of right bronchus or lung
[2024-12-18 06:31] LABS: Hematocrit (blood only) 24.4 % (42.0-52.0); Hemoglobin 7.6 g/dl (14.0-18.0); Mean Corpuscular Hemoglobin 29.2 pg (25.0-34.0); Mean Corpuscular Volume 93.8 fL (80.0-100.0); Platelet Count 117 K/uL (130-400); RDW Standard Deviation 65.0 fL (36.4-46.3); Red Blood Count 2.60 M/uL (4.70-6.10); White Blood Count 10.47 K/ul (4.8-10.8)
[2024-12-18 07:00] LABS: Magnesium 1.8 mg/dl (1.7-2.4)
[2024-12-18 07:05] LABS: Anion Gap 5.0 (3-11); Blood Urea Nitrogen 23.0 mg/dl (6-23); Calcium 8.2 mg/dl (8.6-10.3); Carbon Dioxide 34.0 mmol/L (21-32); Chloride 94.0 mmol/L (98-107); Creatinine Clr Calc Pharmacy 58.9 ml/min; Glucose 96.0 mg/dl (70-99(Fasting)); Potassium 4.5 mmol/L (3.5-5.1); Sodium 133.0 mmol/L (136-145)
[2024-12-18 07:41] LABS: ANTI-Xa, UFH(UnfractionatedHep 0.61 IU/ml (0.3-0.7)
[2024-12-18] MEDS: MAGNESIUM SULFATE / D5W 1 GM/100 ML BAG IV SCH (08:39)
[2024-12-18 08:51] LABS: Base Excess VBG 5.4 mEq/L; HCO3 VBG 33 mmol/L; Oxygen Saturation VBG 88.4 %; PCO2 VBG 63 mmHg (38-50); PO2 VBG 55 mmHg; pH VBG 7.32 (7.36-7.41)
[2024-12-18 11:50] LABS: Base Excess VBG 5.7 mEq/L; HCO3 VBG 32 mmol/L; Oxygen Saturation VBG 81.0 %; PCO2 VBG 55 mmHg (38-50); PO2 VBG 48 mmHg; pH VBG 7.37 (7.36-7.41)
--- NOTE | 2024-12-18 13:07 | Pulmonology Progress Note ---
<Statement entered by Roger Mayer MD - 12/18/24 16:11> I, Roger Mayer MD, supervised and reviewed the physical exam, assessment, plan, and management as documented by the Advanced Care Provider for this patient encounter. I discussed the case with them, confirmed the findings, and I concur with the proposed plan of care. I was available for consultation throughout the encounter and provided guidance as needed. Date of Service December 18, 2024 Assessment & Plan (1) Acute hypoxic respiratory failure: (2) Pneumocystis jiroveci pneumonia: (3) Adenocarcinoma of lung: Laterality: right Qualified Code(s): C34.91 - Malignant neoplasm of unspecified part of right bronchus or lung (4) Bilateral pulmonary embolism: Plan Patient is an 79-year-old male with a history of right lung adenocarcinoma, coronary artery disease, CAD, pulmonary hypertension, emphysema, hypothyroidism, GERD, hypertension, esophageal varices, TMJ and vitamin D deficiency. The patient follows with Dr. Mcbride in the pulmonary clinic. Was being treated outpatient with chemotherapy in September and received radiation treatment in October. The patient presented to the hospital 11/30/2024 with shortness of breath and lower extremity edema. Imaging on arrival showed bilateral lower lobe subsegmental pulmonary emboli and increasing GGO's in bilateral lung [place]. The patient was started on anticoagulation. He continued to have worsening respiratory failure with hypoxia for which pulmonary was consulted. Echocardiogram did not show evidence of RV strain with the PE. He was started on antibiotics to cover for community-acquired pneumonia and started on Bactrim and IV steroids. The patient continued to be hypoxic and required maximum Optiflow of 60 L and 100%. Steroids were continued and the dose was increased. Antibiotics were broadened to Zosyn and vancomycin. Lasix were added and the patient was aggressively diuresed. The patient had hyponatremia after Bactrim therefore this was discontinued. Urine Legionella was negative therefore atypical coverage with azithromycin was stopped. Sputum culture grew Staphylococcus hemolyticus sensitive to vancomycin and linezolid. Oncology was consulted, due to concern for radiation pneumonitis the plan was to initiate a dose of tocilizumab. However sputum cultures are now showing positive pneumocystis jiroveci PCR therefore tocilizumab has been discontinued and the patient was started on Bactrim. The patient had slightly improved however when examined on 12/12/2024 he was found to be profoundly hypoxic requiring maximum Optiflow in addition to Ventimask and still satting only in the mid 80s. Inflammatory markers and LDH are climbing. Imaging with x-ray appears worse. Assessment: Imaging from admission showed diffuse GGO's, more significant on the right however still present on the left. The patient also was found to have subsegmental PEs. Differential diagnosis included pneumonitis from radiation or chemotherapy versus infectious etiology. Sputum cultures initially only grew Staphylococcus hemolyticus for which the patient was treated appropriately. PCR from his sputum has resulted now and is showing PJP pneumonia. His CT findings with the GGO's could very likely have been PJP initially rather than radiation pneumonitis. At this point I do not think his PEs are really contributing to his hypoxia. He has been anticoagulated appropriately. Echo did not show evidence of RV dysfunction. He has both staph and PJP pneumonia. Both of these are likely contributing to his profound hypoxia. The patient has taken an interval turn for the worse. Chest x-ray today shows worsening of his pulmonary infiltrates. LDH peaked an down slightly today. CRP downtrending today. Has been relying on CPAP/BiPAP for last 5 days. Air hunger and dyspnea treated with morphine and lorazepam. Recommendations/plan: CPAP changed to Bipap to attempt to improve ventilation. Wean for saturation of 88 to 92%. Can continue with optiflow trials as tolerated. Please place gel protective nasal bridge under CPAP mask to prevent tissue breakdown. Remains NPO. If possible switching all of his medications to IV formula would be best. TPN considered workign with pharmacy on starting given other metabolic derangements. Patient has been on high-dose steroids with methylprednisolone, steroids were initiated on 12/03/2024. Given the immunocompromise state and respiratory failure continue steroids with the PJP pneumonia. Will do methylprednisolone 30 mg once daily for 10 days and then decrease to 20 mg daily until his course of Bactrim is complete. Continue IV Bactrim for 21 days. The patient did have some hyponatremia previously when he had Bactrim therefore we will need to watch the sodium closely. Sodium is dropping. Added normal saline 12/12 as he is not unable to take p.o. Given the severity of his illness I would prefer not to switch to alternative PJP treatment. Will initiate 3% sodium chloride today at 30 cc/hr and monitor NA Q4H. Infectious diseases consulted. Recommend continuing current regimen. Patient should remain on GI prophylaxis while on steroids. Completed vancomycin for the staph pneumonia. Zosyn added back 12/12. Voriconazole added 12/12 for possible fungal/mold infection. Voriconazole levels pending. Patient remains critically ill with a generally poor prognosis. CODE STATUS is DNR/DNI. Thank you for this consultation, I will continue to follow along with you. 42 minutes was the time spent reviewing the chart, obtaining history, performing the clinical exam, and updating the patient, family, and bedside nurse. Admission and Anticipated Discharge Date Admission Date: November 29, 2024 Subjective Patient obtunded this am and unable to arouse with noxious stimuli. VBG ordered due to noted elevated bicarbonate. VBG showed pH 7.32 pCO2-63. Patient transitioned to Bipap. Repeat VBG showed pCo2 down to 55. Discussed results and concerns with patient's . Will continue BiPAP at this time. Review of Systems 2 Review of Systems: All systems reviewed & are unremarkable except as noted in HPI & below Physical Exam 2 Physical Exam: VITALS: Reviewed. WEIGHT/BMI reviewed. GEN: Chronically ill, states age appearing, well-developed, NAD. PSYCH: Obtunded/unresponsive HEENT -Head: NC/AT; -Eyes: PERRL, EOMI. No discharge or redn ess; -Ears: External ears are normal. -Nose: Normal nares. NECK: Supple, with no masses. CV: Tachycardic, S1/S2 present, no m/r/g LUNGS: Rhonchi appreciated in b/l lung [place]. Chest rise symmetrical. Breathing labored. ABD: Soft, NT/ND, NBS, no masses or organomegaly. : N/A SKIN: Warm, well perfused. No skin rashes or abnormal lesions. MSK: No deformities, Normal gait. EXT: No clubbing, cyanosis, or edema. NEURO: Lethargic, generalized weakness, not following, No focal deficits. Results & Data Results & Data Vital Signs (Past 12 Hours) Vital Signs Temp Pulse Pulse Resp BP BP Pulse Ox 12/18/24 11:00 36.5 C 92 H 22 97/64 L 94 12/18/24 10:28 102 H 24 94 12/18/24 09:10 102 H 12/18/24 08:43 102 H 118/74 12/18/24 07:57 36.6 C 105 H 18 118/74 92 12/18/24 07:21 107 H 28 H 85 L 12/18/24 07:21 104 H 25 H 85 L 12/18/24 06:25 104 H 12/18/24 03:09 108 H 133/79 12/18/24 02:53 36.5 C 110 H 18 133/79 91 12/18/24 02:35 105 H 25 H 91 O2 Del Method FiO2 12/18/24 11:00 BiPAP 12/18/24 10:28 90 12/18/24 09:10 12/18/24 08:43 12/18/24 07:57 CPAP 12/18/24 07:21 70 12/18/24 07:21 CPAP 70 12/18/24 06:25 12/18/24 03:09 12/18/24 02:53 CPAP 12/18/24 02:35 70 Laboratory Results 12/18/24 05:24 12/18/24 05:24 Abnormal Lab Results 12/13/24 12/17/24 12/18/24 16:36 15:27 01:04 WBC RBC Hgb Hct MCV MCH MCHC RDW Std Deviation RDW Coeff of Joesph Plt Count MPV Heparin Anti-Xa, Unfract VBG pH VBG pCO2 VBG pO2 VBG HCO3 VBG O2 Saturation VBG Base Excess Sodium 134 L Potassium 5.0 Chloride 99 Carbon Dioxide 31 Anion Gap 4 BUN 23 Creatinine 0.90 Est Cr Clr Drug Dosing 60.2 eGFR 85.80 BUN/Creatinine Ratio 25.6 H Glucose 179 H POC Glucose 158 H Calcium 8.3 L Phosphorus Magnesium Lactate Dehydrogenase C-Reactive Protein Legionella Source Cancelled Legionella Culture Cancelled Beta-(1,3)-D-Glucan <31 B-(1,3)-D-Glucan Intrp Negative 12/18/24 12/18/24 12/18/24 05:24 05:55 08:25 WBC 10.47 RBC 2.60 L Hgb 7.6 L Hct 24.4 L MCV 93.8 MCH 29.2 MCHC 31.1 L RDW Std Deviation 65.0 H RDW Coeff of Joesph 19.0 H Plt Count 117 L MPV 11.0 Heparin Anti-Xa, Unfract 0.61 VBG pH 7.32 L VBG pCO2 63 H VBG pO2 55 VBG HCO3 33 VBG O2 Saturation 88.4 VBG Base Excess 5.4 Sodium 133 L Potassium 4.5 Chloride 94 L Carbon Dioxide 34 H Anion Gap 5 BUN 23 Creatinine 0.92 Est Cr Clr Drug Dosing 58.9 eGFR 83.57 BUN/Creatinine Ratio 25.0 H Glucose 96 POC Glucose 104 H Calcium 8.2 L Phosphorus 2.7 Magnesium 1.8 Lactate Dehydrogenase 593 H C-Reactive Protein 10.14 H Legionella Source Legionella Culture Beta-(1,3)-D-Glucan B-(1,3)-D-Glucan Intrp 12/18/24 12/18/24 11:38 11:50 WBC RBC Hgb Hct MCV MCH MCHC RDW Std Deviation RDW Coeff of Joesph Plt Count MPV Heparin Anti-Xa, Unfract VBG pH 7.37 VBG pCO2 55 H VBG pO2 48 VBG HCO3 32 VBG O2 Saturation 81.0 VBG Base Excess 5.7 Sodium Potassium Chloride Carbon Dioxide Anion Gap BUN Creatinine Est Cr Clr Drug Dosing eGFR BUN/Creatinine Ratio Glucose POC Glucose 209 H Calcium Phosphorus Magnesium Lactate Dehydrogenase C-Reactive Protein Legionella Source Legionella Culture Beta-(1,3)-D-Glucan B-(1,3)-D-Glucan Intrp Diagnostic Findings No recent radiology studies. PG Care Time/CCT Total # of Minutes Spent Total Time Spent with Patient: Total time spent is greater than 50% in coordination of care (as documented) at patient's floor/unit and/or counseling patient: Coding Level of Care Code 33584 SUB INP/OBS CARE 2/35MIN Diagnoses Acute hypoxic respiratory failure J96.01 Pneumocystis jiroveci pneumonia B59 Adenocarcinoma of right lung C34.91 Laterality: right Bilateral pulmonary embolism I26.99
--- NOTE | 2024-12-18 14:56 | Infectious Disease Progress Nt ---
Date of Service December 18, 2024 Assessment & Plan (1) Pneumocystis jiroveci pneumonia: (2) Pneumonitis: (3) Bilateral pulmonary infiltrates: Plan 79 yo M with past medical history of non-small cell cancer of the right lung status post chemotherapy plus radiation, (chemotherapy stopped in 09/2024 secondary to cytopenias; last radiation 10/2024, plan to start immunotherapy), hypertension, hyperlipidemia, hypothyroidism, pulmonary hypertension, status post MVR, sp Port-A-Cath, esophageal varices presents to the ED on 11/29/24 w/ worsening dyspnea that worsened with exertion. He endorsed a productive cough that was blood-tinged as well as B/L lower extremity edema. He denied fever, chills. On admission he was afebrile, tachypneic, tachycardic and hypoxic. Labs notable for WBC of 1.52 (ANC 1.03), total bili 1.6, AST 60, ALT 48, CRP 11.33. Respiratory viral panel negative, beta D glucan less than 31 (negative), Legionella antigen negative, creatinine 1.03, MRSA screen negative, procalcitonin 0.10. Initial CTA chest showed bilateral lower lobe pulmonary embolism: Interval increase in size of multifocal nodular opacities in the right lower lobe which could be inflammatory though bronchogenic carcinoma is also possible. Interval worsening of multifocal ground glass opacities which may be due to viral pneumonitis. Mild mediastinal and bilateral hilar adenopathy. Small pleural effusion. Initial chest x-ray showed stable interstitial and faint pulmonary opacities. Throughout his course chest x-ray showed progression of the bilateral airspace opacities and interstitial thickening. He was initially started on piperacillin/tazobactam, dexamethasone, azithromycin and heparin GTT. His course was complicated by increasing O2 requirements despite 100% FiO2 with 60 L of oxygen. His O2 sats remained in the high 80s and low 90s. He was dyspneic with minimal movement. TMP-SMX was added for possible Pneumocystis Jirovecii infection. Serum beta D glucan was negative. Sputum culture grew Staphylococcus hemolyticus (penicillin and TMPSMX resistant). He was started on IV vancomycin and TMPSMX was discontinued. He was followed by pulmonary who felt that he was too high risk for bronchoscopy and it may be low yield. He was moved to the PCU. His prognosis was felt to be poor and it was thought that transitioning to comfort measures and hospice level of care would be appropriate. Patient is DNR /DNI but wanted all other aggressive measures to continue. He did not feel he was ready for comfort measures. He was evaluated by heme-onc and starting tocilizumab was considered given the possible inflammatory vs radiation related nature of the pneumonitis. Sputum PCR was sent for Pneumocystis jirovecii and finalized as positive. Infectious disease consulted for positive PJP PCR. He was restarted on TMPSMX 12/10. An E consult without video evaluation completed as video/camera is not working. Microbiology 12/13 Urine Histo Ag: pending 12/13 BDG: <31 12/13 BCx x2: NGTD 12/13 RVP: neg 12/12 CrAg: neg 12/12 Aspergillus Ag: neg 12/06 COVID-/flu/RSV: neg 12/05 sputum culture Staphylococcus hemolyticus (sensitive to linezolid, vancomycin) 12/05 sputum + PJP PCR 12/03 Beta D glucan <31 12/02 Urine Legionella Ag: neg 11/29 RVP: neg Antibiotics Ceftriaxone 12/02 - 12/03 Azithromycin 12/02 - 12/05 Zosyn 12/03 - 12/09, 12/12 - present TMPSMX 12/04 - 12/05, 12/10 - present Vancomycin Voriconazole 12/13 - present # Worsening acute hypoxic respiratory failure # Non-small cell lung cancer, sp chemotherapy, radiation ( pending immunotherapy) # Pneumocystis Jirovecii pneumonia ( PCR + but negative serum Beta D glucan) # Pulmonary Embolism # Possible pneumonitis (chemo- induced versus radiation-induced ) # Left chest port in place # Positive staph hemolyticus on sputum culture # Elevated LDH 495-->848-->781-->988. # S/P MVR Discussion: His worsening respiratory status is likely multifactorial in the setting of PE, lung adenocarcinoma, possible staph hemolyticus pneumonia, possible pneumonitis, possible PJP, CHF. Although this sputum PCR is positive PJP and LDH is elevated, Beta D glucan is negative. He is currently on TMPSMX + methylprednisolone. He completed 7 d of IV vancomycin. 12/11 He remains hypoxic. On HFNC 45L/75%. 12/12 His respiratory status has worsened- now on HFNC and ventimask. O2 sats were between 77-87%. On 100% fio2. CRP increased to 4.27, LDH up to 988, Pro-Alessandro 0.21. There was concern that he may be aspirating. Added Zosyn. CT chest shows increased pulmonary opacities possibly combo pneumonia and pulmonary edema, CHF. Ordered Crypto ag, Aspergillus ag 12/13 His respiratory status continues to worsen. He has been on CPAP for the past 24 hours. O2 sats 91% on CPAP 8 and 60%. Afebrile. AMS this am. Voriconazole started. Cr and LDH worsening LDH 495-->848-->781-->988-->1033 CRP 12.26 ->.3.76--> 2.64 --> 1.91--> 4.27--> 16.44 Sodium 132, potassium 4.3 12/16 Respiratory status not improved, has remained CPAP dependent over the weekend. Started on 3% saline on 12/15 due to hyponatremia. Downtrending LDH 811, CRP 8.47. Recommendations -Continue Zosyn 4.5g IV q8h -Continue TMPSMX 5 mg/kg IV q8hr for 21 days (12/10-12/31). Will need to closely monitor K, Na, Cr on therapy. If significant side effects on Bactrim, will need to consider alternatives (ie Atovaquone or primaquine + clinda). Continue methylprednisolone with taper per pulmonary (21 day steroid taper for PJP is usually: prednisone 40 mg po bid for 5 days, then 40 mg po daily for 5 days, then 20 mg PO daily for 11 days). Will defer to pulmonary and heme onc on steroid taper as he is also being treated for possible pneumonitis. - With negative Aspergillus Ag and BDG, discontinued voriconazole -Follow up urine histo antigen Will continue to follow Admission and Anticipated Discharge Date Admission Date: November 29, 2024 Subjective This patient recommendation is based on a telemedicine consult request which was completed asynchronously through chart review and information provided by the primary physician. The patient was not seen or examined today. The evaluation is consultative in nature and all patient care and treatment decisions can either be accepted or rejected by the patient's primary hospital-based treating physician using their own independent medical judgment for their patient. An e-consult was performed as the video cart is not functioning. Time Spent Reviewing Chart: 11 - 20 minutes Per chart review, obtunded this AM Transitioned to BiPAP Afebrile Results & Data Vital Signs (Past 12 Hours) Vital Signs Temp Pulse Pulse Resp BP BP Pulse Ox 12/18/24 11:00 36.5 C 92 H 22 97/64 L 94 12/18/24 10:28 102 H 24 94 12/18/24 09:10 102 H 12/18/24 08:43 102 H 118/74 12/18/24 07:57 36.6 C 105 H 18 118/74 92 12/18/24 07:21 107 H 28 H 85 L 12/18/24 07:21 104 H 25 H 85 L 12/18/24 06:25 104 H 12/18/24 03:09 108 H 133/79 O2 Del Method FiO2 12/18/24 11:00 BiPAP 12/18/24 10:28 90 12/18/24 09:10 12/18/24 08:43 12/18/24 07:57 CPAP 12/18/24 07:21 70 12/18/24 07:21 CPAP 70 12/18/24 06:25 12/18/24 03:09
--- NOTE | 2024-12-18 15:27 | Pharmacy Report ---
Pharmacy Initial PN Consult Nt - Date of Service December 18, 2024 - Scope Pharmacy has been consulted on this date to manage parenteral nutrition orders and order appropriate labs. As part of the Nutrition Support Team Guidelines, pharmacy will work in conjunction with dietary when determining the patients caloric needs. - Subjective * The patient is a 79 year old Male admitted on 11/29/24 for SHORTNESS OF BREATH, EDEMA. * Patient is to receive parenteral nutrition for prolonged NPO, unable to tolerate enteral nutrition. - Objective Vascular Access: * Patient currently has a central line. Height & Weight (Last Documented) Height 5 ft 7 in Weight 77.4 kg Diet Order(s) 12/12/24 07:16 NPO Intake & Ouput (24hrs) 12/17/24 12/18/24 12/19/24 06:59 06:59 06:59 Intake Total 3343.633 / 3343.633 2720.4 / 2720.4 1160.367 / 1160.367 Output Total 3150 / 3150 4350 / 4350 1300 / 1300 Balance 193.633 / 193.633 -1629.6 / -1629.6 -139.633 / -139.633 Selected Laboratory Results 12/17/24 12/18/24 15:27 05:24 Sodium 134 L 133 L Potassium 5.0 4.5 Chloride 99 94 L Carbon Dioxide 31 34 H Anion Gap 4 5 BUN 23 23 Creatinine 0.90 0.92 BUN/Creatinine Ratio 25.6 H 25.0 H Glucose 179 H 96 Calcium 8.3 L 8.2 L Phosphorus 2.[address] - Follow Up Nutrition Assessment Start: 12/04/24 15:44 Freq: Status: Active Protocol: Document 12/17/24 12:10 WN (Rec: 12/17/24 12:29 WN [id number]) RD - Initial Nutrition Assessment Start: 12/04/24 15:35 Freq: Status: Active Protocol: Document 12/04/24 15:35 WN (Rec: 12/04/24 15:44 WN [id number]) - Assessment & Plan Assessment: * Appreciate dietitians recommendations for macronutrients. Patient has been on hypertonic saline infusion until yesterday afternoon, sodium 133 today. Electrolytes remain somewhat labile. Discussed TPN in detail with multidisciplinary team. Sodium content in the bag was ordered to reach close to a physiologic solution. Note CO2 trended up today and as such will add minimal about of additional acetate to the bag, but will still include some to keep solution balanced. Given Potassium is on the higher end of normal and IV Bactrim continues, will add only a conservative amount of potassium to the bag. Patient may be at risk for refeeding, but has been receiving dextrose from IV Bactrim and heparin solutions. Will start TPN below goal and plan to titrate as able. Recommended repeat laps this evening after TPN initiation. Plan: * For Day #1 of TPN administration, the following will be ordered: * Macronutrients: * Amino Acids: 58 grams/day * Dextrose: 101 grams/day * Lipids: 50 grams/day * Micronutrients: * Sodium phosphate: 21 mMol/day * Sodium chloride: 80 mEq/day * Potassium acetate: 20 mEq/day * Magnesium sulfate: 4.06 mEq/day * Calcium gluconate: 4.65 mEq/day * Multivitamins: 10 mL/day * Trace elements: 1 mL/day * Thiamine: 100 mg/day * Total volume of 792 mL will be infused over 24 hours and will provide 1074 kcal/day * Labs will be ordered per PN protocol. * Pharmacy will follow and adjust PN orders on a daily basis. Thank you!
[2024-12-18] MEDS: CLINOLIPID 20% IV FAT EMULSION 250 ML IV SCH (16:32)
[2024-12-18] MEDS: [UNRECOGNIZED DRUG - OTHER] IV SCH (16:32)
[2024-12-18] MEDS: CENTRAL TPN IV SCH (16:32)
[2024-12-18 20:26] LABS: Anion Gap 6.0 (3-11); Blood Urea Nitrogen 25.0 mg/dl (6-23); Calcium 7.8 mg/dl (8.6-10.3); Carbon Dioxide 33.0 mmol/L (21-32); Chloride 88.0 mmol/L (98-107); Creatinine Clr Calc Pharmacy 56.4 ml/min; Glucose 266.0 mg/dl (70-99(Fasting)); Magnesium 2.0 mg/dl (1.7-2.4); Potassium 4.2 mmol/L (3.5-5.1); Sodium 127.0 mmol/L (136-145)
[2024-12-18] MEDS ORDERED: STOP ORDER ONE (21:07)
[2024-12-18] MEDS ORDERED: STAT IV/IM STA (21:07)
--- NOTE | 2024-12-18 21:22 | Hospitalist Progress Note ---
Date of Service December 18, 2024 Assessment & Plan (1) Pneumocystis jiroveci pneumonia: (2) Pneumonitis: (3) Acute hypoxic respiratory failure: (4) Bilateral pulmonary embolism: (5) Atrial fibrillation with rapid ventricular response: (6) Adenocarcinoma of lung: (7) CAD (coronary artery disease): Plan 79yo male with lung cancer with metastatic disease to mediastinal lymph nodes, CAD s/p 2V CABG, porcine MVR and maze procedure in March 2024, paroxysmal atrial fibrillation, COPD presented with two weeks of progressive SOB and LE edema. Patient hypoxic to 88% on room air on arrival. Bilateral pulmonary emboli and b/l groundglass infiltrates seen on CTA chest on 11/29/24. complex hospital course. Since admission developed severe acute hypoxic respiratory failure and multifocal pneumonia. Steroids and treatment for PJP were initiated. He has been on and off of broad-spectrum antibiotics throughout the stay. Since late last week he has been CPAP dependent and has had progressive slow decline. Maintaining sats and CO2, however, breathing more labored and now poorly responsive #Acute hypoxic and hypercarbic respiratory failure - severe, Remains critically ill and highly medically complex decision making required. -multifactorial including b/l PEs, PJP infection, staph haemolyticus pneumonia, acute on chronic HFpEF, possible radiation pneumonitis, COPD -respiratory biofire negative 11/29 -COVID/flu/RSV negative 12/05 -legionella urine ag negative, culture not collected (no sputum) -other pending labs per ID -he had been on broad-spectrum IV antibiotics and was diuresed earlier this admission; finished 5-day course of azithromycin previously -completed 7 days of vancomycin on 12/13 for possible staph haemolyticus pneumonia -briefly was on Bactrim earlier this admission, Bactrim resumed for PJP - 21 day course 12/10-12/31 with concomitant steroids -pip-tazo added 12/12 for possible aspiration on that date -per pulmonary recs: solumedrol 30 IV q 12h for five days, decrease to daily 12/16 x 10 days, then decrease to 20 mg daily until bactrim complete. Taper ordered through 01/01. -voriconazole started 12/13 - stopping 12/18 after discussion with ID and pulmonary - fungal labs are negative and he hasn't shown signs of benefit -CRP has significantly improved and LDH is improved to 600 - continue monitor daily -pulmonary and infectious disease consultingdiscussed with pulmonary 12/18 -continue lasix 40 mg IV bid -CXR was much worse 12/16 -has required CPAP for severe hypoxia for days, pulmonary status worsened even more, now hypercarbic and changed to bipap # hyponatremiaworsening hyponatremia probably related to Bactrim, also happened earlier in the stay when he was on Bactrim before because of the severity of his illness we are hesitant to change treatment for the PJP 12/15 initiated 3% saline, Na increased from 127-->135 over 48h. 20 mL/h stable, 30 mL/h slow increase -stopped 3% saline AM of 12/17 and remained stable at 133 overnight -once TPN initiated sodium fell rapidly down to 127. Stopped TPN because he cannot tolerate the electrolyte shifts -resumed 3% saline at 30 mL/h with q4h sodium checks #FEN - not a candidate for feeding tube because dependent on NIV. Not alert enough for po. Family wished trial of nutrition. Unable to tolerate TPN because sodium rapidly worsened. I have not been able to discuss this with them yet # acute toxic/metabolic encephalopathy - related to severe hypoxia, critical illness, medications needed for comfort (morphine, lorazepam). now some hypercarbia - worsening, not awake #Atrial fibrillation with RVR -previous history of a.fib and underwent Maze procedure with his CABG and MVR in 03/2024 -echo with preserved EF, TSH wnl -continues in/out of afib, continue metoprolol 2.5 mg IV q6h and PRN rate is adequately controlled 90-120 range for his severity of illness #Bilateral subsegmental pulmonary emboli - -Continue heparin drip -thrombocytopenia resolved #Adenocarcinoma of the lung - IIIb. -s/p chemotherapy and XRT with pause in chemotherapy in September 2024 due to cytopenias -was planning to start immunotherapy in December -primary oncologist - [facility] #antineoplastic chemotherapy induced pancytopenia - -s/p 1 unit PRBCs on 12/07 -recent B12/folate wnl -recent Fe panel c/w acute phase reactant - CBC notable for leukocytosis and platelets now normal. Hg adequate #CAD #Hypertension #Hyperlipidemia -s/p CABG x 2V performed in March 2024 as well as mitral valve replacement with porcine valve and maze procedure -Echo 12/02 - preserved EF, bioprosthetic MVR functioning well -oral meds held - aspirin, atorvastatin, Metoprolol -stable #Hypothyroidism - -TSH wnl -NPO so levothyroxine held, IV if prolonged hold #Emphysema/COPD - -Continue nebs -Continue IV solumedrol #GERD -Continue Protonix IV #BPH - -resume flomax if taking po #DVT ppx - -heparin drip critically ill and worsening despite intensive efforts and maximal medical treatment (besides intubation) prognosis very poor. very complex medical decision making his and daughter wish to give him until the weekend to see if he can improve. They are aware he could further decompensate at any time in which case we will need to change to [facility]. His acknowledged that he would not want this. I did not see them today. Extensive discussions yesterday. Admission and Anticipated Discharge Date Admission Date: November 29, 2024 Subjective remains poorly responsive now requiring bipap for progressive respiratory failure with hypercarbia Physical Exam 2 Physical Exam: Last 24h vitals reviewed GEN: looks worse, on CPAP HEENT: pupils equal, sclerae anicteric, dry MM RESP: resp look labored, scattered crackles posteriorly throughout - no change CV: tachycardic pseudo regular ABD: soft/nt/nd +BT : Johnson catheter SKIN: warm and dry, no generalized rashes EXT: wwp no peripheral edema NEURO: did not open eyes for me Results & Data Results & Data Vital Signs (Past 12 Hours) Vital Signs Temp Pulse Pulse Resp BP BP Pulse Ox 12/18/24 20:38 99 H 107/68 12/18/24 20:09 127 H 22 94 12/18/24 20:08 102 H 22 94 12/18/24 19:46 36.8 C 106 H 22 107/68 95 12/18/24 16:27 94 H 110/72 12/18/24 16:00 36.6 C 95 H 20 101/74 95 12/18/24 15:39 99 H 110/72 12/18/24 15:34 98 H 22 94 12/18/24 13:07 100 H 12/18/24 11:00 36.5 C 92 H 22 97/64 L 94 12/18/24 10:28 102 H 24 94 O2 Del Method FiO2 12/18/24 20:38 12/18/24 20:09 80 12/18/24 20:08 BiPAP 80 12/18/24 19:46 CPAP 12/18/24 16:27 12/18/24 16:00 BiPAP 12/18/24 15:39 12/18/24 15:34 80 12/18/24 13:07 12/18/24 11:00 BiPAP 12/18/24 10:28 90 Laboratory Results 12/18/24 05:24 12/18/24 19:59 Sodium dropped from 133-->127 today once started on TPN PG Care Time/CCT Total # of Minutes Spent Total Time Spent with Patient: Total time spent is greater than 50% in coordination of care (as documented) at patient's floor/unit and/or counseling patient: Coding Level of Care Code 07780 SUB INP/OBS CARE 3/50MIN Diagnoses Pneumocystis jiroveci pneumonia B59 Pneumonitis J98.4 Acute hypoxic respiratory failure J96.01 Bilateral pulmonary embolism I26.99 Atrial fibrillation with rapid ventricular response I48.91 Adenocarcinoma of right lung C34.91 Laterality: right CAD (coronary artery disease) I25.10 (6) Adenocarcinoma of lung Laterality: right Qualified Code(s): C34.91 - Malignant neoplasm of unspecified part of right bronchus or lung
[2024-12-18] MEDS: SODIUM CHLORIDE 3 % 500 ML IV SCH (21:33)
[2024-12-18] MEDS: STOP CLINOLIPID SCH (21:45)
[2024-12-18] MEDS: DEXTROSE 10% 1,000 ML IV PRN (23:59)
[2024-12-19 01:12] LABS: Anion Gap 5.0 (3-11); Blood Urea Nitrogen 24.0 mg/dl (6-23); Calcium 7.7 mg/dl (8.6-10.3); Carbon Dioxide 33.0 mmol/L (21-32); Chloride 90.0 mmol/L (98-107); Creatinine Clr Calc Pharmacy 62.3 ml/min; Glucose 199.0 mg/dl (70-99(Fasting)); Potassium 3.9 mmol/L (3.5-5.1); Sodium 128.0 mmol/L (136-145)
[2024-12-19 06:15] LABS: Hematocrit (blood only) 22.0 % (42.0-52.0); Hemoglobin 7.4 g/dl (14.0-18.0); Mean Corpuscular Hemoglobin 30.6 pg (25.0-34.0); Mean Corpuscular Volume 90.9 fL (80.0-100.0); Platelet Count 102 K/uL (130-400); RDW Standard Deviation 60.6 fL (36.4-46.3); Red Blood Count 2.42 M/uL (4.70-6.10); White Blood Count 7.20 K/ul (4.8-10.8)
[2024-12-19 06:32] LABS: Anion Gap 5.0 (3-11); Blood Urea Nitrogen 24.0 mg/dl (6-23); Calcium 7.9 mg/dl (8.6-10.3); Carbon Dioxide 33.0 mmol/L (21-32); Chloride 93.0 mmol/L (98-107); Creatinine Clr Calc Pharmacy 71.3 ml/min; Glucose 90.0 mg/dl (70-99(Fasting)); Potassium 4.2 mmol/L (3.5-5.1); Sodium 131.0 mmol/L (136-145)
[2024-12-19 06:33] LABS: Anion Gap 4.0 (3-11); Blood Urea Nitrogen 24.0 mg/dl (6-23); Calcium 8.0 mg/dl (8.6-10.3); Carbon Dioxide 33.0 mmol/L (21-32); Chloride 94.0 mmol/L (98-107); Creatinine Clr Calc Pharmacy 69.4 ml/min; Glucose 90.0 mg/dl (70-99(Fasting)); Potassium 4.2 mmol/L (3.5-5.1); Sodium 131.0 mmol/L (136-145)
[2024-12-19 06:35] LABS: Magnesium 2.0 mg/dl (1.7-2.4)
[2024-12-19 06:54] LABS: ANTI-Xa, UFH(UnfractionatedHep 0.56 IU/ml (0.3-0.7)
--- NOTE | 2024-12-19 07:53 | Hospitalist Progress Note ---
Date of Service December 19, 2024 Assessment & Plan (1) Pneumocystis jiroveci pneumonia: (2) Pneumonitis: (3) Acute hypoxic respiratory failure: (4) Bilateral pulmonary embolism: (5) Atrial fibrillation with rapid ventricular response: (6) Adenocarcinoma of lung: (7) CAD (coronary artery disease): Plan 79yo male with lung cancer with metastatic disease to mediastinal lymph nodes, CAD s/p 2V CABG, porcine MVR and maze procedure in March 2024, paroxysmal atrial fibrillation, COPD presented with two weeks of progressive SOB and LE edema. Patient hypoxic to 88% on room air on arrival. Bilateral pulmonary emboli and b/l groundglass infiltrates seen on CTA chest on 11/29/24. complex hospital course. Since admission developed severe acute hypoxic respiratory failure and multifocal pneumonia. Steroids and treatment for PJP were initiated. He has been on and off of broad-spectrum antibiotics throughout the stay. Since late last week he has been CPAP dependent and has had progressive slow decline. Maintaining sats and CO2, however, breathing was more labored and patient was poorly responsive Goals of care See ACP note 12/19 for complete documentation Extended form discussion with patient at bedside although unable to participate due to mental status, his , and daughter reporting current condition and goals of care. Benigno show signs of developing fibrosis and continued hypercapnia/respiratory failure despite adequate tidal volumes on BiPAP. He has had 10 days of PJP treatment unfortunately without significant improvement. Family reports understanding of his current condition, treatment options, and prognosis. On shared decision making family reports that it is very important to do emotionally to continue current treatment through 12/22 feel that they have been giving him a full adequate chance. He would like to continue current treatments however if he were to have any cardiopulmonary arrest would not want resuscitation (patient DNR/DNI), and if he deteriorates or shows signs of worsening pain/distress would want to be notified to reevaluate at that time. #Acute hypoxic and hypercarbic respiratory failure - severe, - Remains critically ill and highly medically complex decision making required. -multifactorial including b/l PEs, PJP infection, staph haemolyticus pneumonia, acute on chronic HFpEF, possible radiation pneumonitis, COPD -respiratory biofire negative 11/29 -COVID/flu/RSV negative 12/05 -legionella urine ag negative, culture not collected (no sputum) -other pending labs per ID -he had been on broad-spectrum IV antibiotics and was diuresed earlier this admission; finished 5-day course of azithromycin previously -completed 7 days of vancomycin on 12/13 for possible staph haemolyticus pneumonia - Transiently on Bactrim earlier this admission, Bactrim resumed for PJP - 21 day course 12/10-12/31 with concomitant steroids -pip-tazo added 12/12 for possible aspiration on 12/12 -per pulmonary recs: solumedrol 30 IV q 12h for five days, decrease to daily 12/16 x 10 days, then decrease to 20 mg daily until bactrim complete. Taper ordered through 01/01. -voriconazole started 12/13 - stopped 12/18 after discussion with ID and pulmonary - fungal labs are negative and he hasn't shown signs of benefit - LDH downtrending, CRP down trended but then again uptrending 12/18 - 12/19 -pulmonary and infectious disease consultingdiscussed with pulmonary 12/18 -continue lasix 40 mg IV bid. Some improvements in x-ray opacities however he has not had any clinical improvements to Meurer this -CXR was much worse 12/16 -has required CPAP for severe hypoxia for days, worsening respiratory status with hypercapnia/hypercarbia and was switched to BiPAP continue BiPAP, steroids, Zosyn, Bactrim at this time # hyponatremia worsening hyponatremia probably related to Bactrim, also happened earlier in the stay when he was on Bactrim before because of the severity of his illness we are hesitant to change treatment for the PJP 12/15 initiated 3% saline, Na increased from 127-->135 over 48h. 20 mL/h stable, 30 mL/h slow increase -stopped 3% saline AM of 12/17 and remained stable at 133 overnight -once TPN initiated sodium fell rapidly down to 127. Stopped TPN because he cannot tolerate the electrolyte shifts -resumed 3% saline at 30 mL/h with q4h sodium checks Sodium 128-->131 on 12/19 Will continue sodium checks. If sodium stable greater than 130 x3 then can space out sodium levels to every 8daily as appropriate. Less than 130, resume 3% saline at 33 cc/h. #FEN - not a candidate for feeding tube because dependent on NIV. - Not alert enough for po. Family wished trial of nutrition. Unable to tolerate TPN because sodium rapidly worsened. For further TPN, risks outweigh benefits at this time # acute toxic/metabolic encephalopathy - related to severe hypoxia, critical illness. now some hypercarbia - worsening, not awake Morphine is available every 4 hours for severe pain/distress distress, hold for sedation. #Atrial fibrillation with RVR -previous history of a.fib and underwent Maze procedure with his CABG and MVR in 03/2024 -echo with preserved EF, TSH wnl -continues in/out of afib, continue metoprolol 2.5 mg IV q6h and PRN rate is adequately controlled 90-120 range for his severity of illness #Bilateral subsegmental pulmonary emboli - -Continue heparin drip -thrombocytopenia resolved #Adenocarcinoma of the lung - IIIb. -s/p chemotherapy and XRT with pause in chemotherapy in September 2024 due to cytopenias -was planning to start immunotherapy in December -primary oncologist - [facility] #antineoplastic chemotherapy induced pancytopenia - -s/p 1 unit PRBCs on 12/07 -recent B12/folate wnl -recent Fe panel c/w acute phase reactant - CBC notable for leukocytosis and platelets now normal. Hg adequate #CAD #Hypertension #Hyperlipidemia -s/p CABG x 2V performed in March 2024 as well as mitral valve replacement with porcine valve and maze procedure -Echo 12/02 - preserved EF, bioprosthetic MVR functioning well -oral meds held - aspirin, atorvastatin, Metoprolol -stable #Hypothyroidism - -TSH wnl -NPO so levothyroxine held Last dose oral was able to be given 12/17. Given prolonged hold will convert to IV at 70% dose #Emphysema/COPD - -Continue nebs -Continue IV solumedrol #GERD -Continue Protonix IV #BPH - -resume flomax if taking po #DVT ppx - -heparin drip critically ill and worsening despite intensive efforts and maximal medical treatment (besides intubation) prognosis very poor. very complex medical decision making his and daughter wish to give him until the weekend to see if he can improve. They are aware he could further decompensate at any time in which case we will bridge to TOPOLOG[facility] TEACHER. Admission and Anticipated Discharge Date Admission Date: November 29, 2024 Subjective Bedside. Objective unable to be obtained due to mental status. VBG with persistent hypercapnia despite continuous BiPAP. Physical Exam Physical Exam: General: Lethargic. On BiPAP HEENT: Atraumatic, normocephalic. Pulm: Diffuse bilateral rhonchi. On BiPAP. Breathing labored, respiratory rate 2021 cardiac: RRR, -mrg. Radial pulses intact and symmetrical. Extremities: Warm, dry Results & Data Results & Data Vital Signs (Past 12 Hours) Vital Signs Temp Pulse Pulse Resp BP BP Pulse Ox 12/19/24 07:21 91 H 24 90 12/19/24 07:21 94 H 24 91 12/19/24 03:49 99 H 139/85 12/19/24 03:47 36.4 C L 99 H 26 H 139/85 95 12/19/24 02:25 99 H 26 H 94 12/18/24 23:42 36.9 C 95 H 22 122/70 96 12/18/24 22:26 95 H 21 95 12/18/24 21:44 93 H 12/18/24 21:00 12/18/24 20:38 99 H 107/68 12/18/24 20:09 127 H 22 94 12/18/24 20:08 102 H 22 94 O2 Del Method FiO2 12/19/24 07:21 80 12/19/24 07:21 BiPAP 80 12/19/24 03:49 12/19/24 03:47 BiPAP 12/19/24 02:25 80 12/18/24 23:42 BiPAP 80 12/18/24 22:26 80 12/18/24 21:44 12/18/24 21:00 BiPAP 80 12/18/24 20:38 12/18/24 20:09 80 12/18/24 20:08 BiPAP 80 PG Care Time/CCT Total # of Minutes Spent Total Time Spent with Patient: Total time spent is greater than 50% in coordination of care (as documented) at patient's floor/unit and/or counseling patient: Coding Level of Care Code 15095 SUB INP/OBS CARE 3/50MIN Diagnoses Pneumocystis jiroveci pneumonia B59 Pneumonitis J98.4 Acute hypoxic respiratory failure J96.01 Bilateral pulmonary embolism I26.99 Atrial fibrillation with rapid ventricular response I48.91 Adenocarcinoma of right lung C34.91 Laterality: right CAD (coronary artery disease) I25.10 (6) Adenocarcinoma of lung Laterality: right Qualified Code(s): C34.91 - Malignant neoplasm of unspecified part of right bronchus or lung
[2024-12-19] MEDS: ACETAMINOPHEN 1,000 MG/100 ML VIAL IV STA (09:03)
[2024-12-19 09:53] LABS: Anion Gap 4.0 (3-11); Blood Urea Nitrogen 24.0 mg/dl (6-23); Calcium 7.9 mg/dl (8.6-10.3); Carbon Dioxide 34.0 mmol/L (21-32); Chloride 95.0 mmol/L (98-107); Creatinine Clr Calc Pharmacy 66.9 ml/min; Glucose 108.0 mg/dl (70-99(Fasting)); Potassium 4.1 mmol/L (3.5-5.1); Sodium 133.0 mmol/L (136-145)
[2024-12-19 11:11] LABS: Base Excess VBG 4.6 mEq/L; HCO3 VBG 32 mmol/L; Oxygen Saturation VBG 83.5 %; PCO2 VBG 56 mmHg (38-50); PO2 VBG 52 mmHg; pH VBG 7.36 (7.36-7.41)
--- NOTE | 2024-12-19 11:57 | XRay Report ---
XR chest 1V portable CLINICAL HISTORY: S/P Thoracentesis COMPARISON STUDY: 12/16/2024 FINDINGS: Stable cavitating and left chest port. Stable cardiomegaly with pulmonary vascular congesti on. Stable diffuse interstitial and patchy pulmonary opacities. No significant pleural effusions. No pneumothorax seen. IMPRESSION: No pneumothorax seen. ACT 112: Negative or not required by law. Electronically signed by: Jesu Morley M.D. 12/19/2024 11:56 AM
[2024-12-19 12:09] LABS: Albumin Level 2.8 gm/dl (3.4-5.0); Bilirubin,Total 0.4 mg/dl (0.2-1.0); Total Protein 5.5 gm/dl (6.0-8.3)
--- NOTE | 2024-12-19 13:23 | Pulmonology Progress Note ---
<Statement entered by Roger Mayer MD - 12/19/24 16:06> I, Roger Mayer MD, supervised and reviewed the physical exam, assessment, plan, and management as documented by the Advanced Care Provider for this patient encounter. I discussed the case with them, confirmed the findings, and I concur with the proposed plan of care. I was available for consultation throughout the encounter and provided guidance as needed. Date of Service December 19, 2024 Assessment & Plan (1) Acute hypoxic respiratory failure: (2) Pneumocystis jiroveci pneumonia: (3) Adenocarcinoma of lung: Laterality: right Qualified Code(s): C34.91 - Malignant neoplasm of unspecified part of right bronchus or lung (4) Bilateral pulmonary embolism: Plan Patient is an 79-year-old male with a history of right lung adenocarcinoma, coronary artery disease, CAD, pulmonary hypertension, emphysema, hypothyroidism, GERD, hypertension, esophageal varices, TMJ and vitamin D deficiency. The patient follows with Dr. Mcbride in the pulmonary clinic. Was being treated outpatient with chemotherapy in September and received radiation treatment in October. The patient presented to the hospital 11/30/2024 with shortness of breath and lower extremity edema. Imaging on arrival showed bilateral lower lobe subsegmental pulmonary emboli and increasing GGO's in bilateral lung [place]. The patient was started on anticoagulation. He continued to have worsening respiratory failure with hypoxia for which pulmonary was consulted. Echocardiogram did not show evidence of RV strain with the PE. He was started on antibiotics to cover for community-acquired pneumonia and started on Bactrim and IV steroids. The patient continued to be hypoxic and required maximum Optiflow of 60 L and 100%. Steroids were continued and the dose was increased. Antibiotics were broadened to Zosyn and vancomycin. Lasix were added and the patient was aggressively diuresed. The patient had hyponatremia after Bactrim therefore this was discontinued. Urine Legionella was negative therefore atypical coverage with azithromycin was stopped. Sputum culture grew Staphylococcus hemolyticus sensitive to vancomycin and linezolid. Oncology was consulted, due to concern for radiation pneumonitis the plan was to initiate a dose of tocilizumab. However sputum cultures are now showing positive pneumocystis jiroveci PCR therefore tocilizumab has been discontinued and the patient was started on Bactrim. The patient had slightly improved however when examined on 12/12/2024 he was found to be profoundly hypoxic requiring maximum Optiflow in addition to Ventimask and still satting only in the mid 80s. Inflammatory markers and LDH are climbing. Imaging with x-ray appears worse. Assessment: Imaging from admission showed diffuse GGO's, more significant on the right however still present on the left. The patient also was found to have subsegmental PEs. Differential diagnosis included pneumonitis from radiation or chemotherapy versus infectious etiology. Sputum cultures initially only grew Staphylococcus hemolyticus for which the patient was treated appropriately. PCR from his sputum has resulted now and is showing PJP pneumonia. His CT findings with the GGO's could very likely have been PJP initially rather than radiation pneumonitis. At this point I do not think his PEs are really contributing to his hypoxia. He has been anticoagulated appropriately. Echo did not show evidence of RV dysfunction. He has both staph and PJP pneumonia. Both of these are likely contributing to his profound hypoxia. The patient has taken an interval turn for the worse. Chest x-ray today shows worsening of his pulmonary infiltrates. LDH peaked an down slightly today. CRP downtrending today. Has been relying on CPAP/BiPAP for last 5 days. Air hunger and dyspnea treated with morphine and lorazepam. Recommendations/plan: CPAP changed to Bipap to attempt to improve ventilation. Wean for saturation of 88 to 92%. Can continue with optiflow trials as tolerated. Please place gel protective nasal bridge under CPAP mask to prevent tissue breakdown. Remains NPO. If possible switching all of his medications to IV formula would be best. TPN not tolerated and discontinued. Patient has been on high-dose steroids with methylprednisolone, steroids were initiated on 12/03/2024. Given the immunocompromise state and respiratory failure continue steroids with the PJP pneumonia. Will do methylprednisolone 30 mg once daily for 10 days and then decrease to 20 mg daily until his course of Bactrim is complete. Continue IV Bactrim for 21 days. The patient did have some hyponatremia previously when he had Bactrim therefore we will need to watch the sodium closely. Sodium is dropping. Added normal saline 12/12 as he is not unable to take p.o. Given the severity of his illness I would prefer not to switch to alternative PJP treatment. Will initiate 3% sodium chloride today at 30 cc/hr and monitor NA Q4H. Infectious diseases consulted. Recommend continuing current regimen. Patient should remain on GI prophylaxis while on steroids. Completed vancomycin for the staph pneumonia. Zosyn added back 12/12. Voriconazole Stopped. Patient remains critically ill with a generally poor prognosis. CODE STATUS is DNR/DNI. Thank you for this consultation, I will continue to follow along with you. 58 minutes was the time spent reviewing the chart, obtaining history, performing the clinical exam, and updating the patient, family, and bedside nurse. Admission and Anticipated Discharge Date Admission Date: November 29, 2024 Subjective Patient remains obtunded. VBG shows persistent pCO2 of 55 despite continuous Bipap. Patient unable to tolerate TPN due to hyponatremia. Family meeting again today with pulmonary and Dr. Bautista with [facility]. Discussed clinical course and current status. Discussed concerns that on going aggressive measures will likely not provide any benefit and potentially further harm and discomfort. Family understanding of low likelihood of recovery. Family discussing next steps in terms of goals of care. Review of Systems 2 Review of Systems: All systems reviewed & are unremarkable except as noted in HPI & below Physical Exam 2 Physical Exam: VITALS: Reviewed. WEIGHT/BMI reviewed. GEN: Chronically ill, states age appearing, well-developed, NAD. PSYCH: Obtunded/unresponsive HEENT -Head: NC/AT; -Eyes: PERRL, EOMI. No discharge or redn ess; -Ears: External ears are normal. -Nose: Normal nares. NECK: Supple, with no masses. CV: Tachycardic, S1/S2 present, no m/r/g LUNGS: Rhonchi appreciated in b/l lung [place]. Chest rise symmetrical. Breathing labored. ABD: Soft, NT/ND, NBS, no masses or organomegaly. : N/A SKIN: Warm, well perfused. No skin rashes or abnormal lesions. MSK: No deformities, Normal gait. EXT: No clubbing, cyanosis, or edema. NEURO: Lethargic, generalized weakness, not following, No focal deficits. Results & Data Results & Data Vital Signs (Past 12 Hours) Vital Signs Temp Pulse Pulse Resp BP BP Pulse Ox 12/19/24 11:14 96 H 22 91 12/19/24 09:25 95 H 12/19/24 08:48 102 H 118/74 12/19/24 07:21 91 H 24 90 12/19/24 07:21 94 H 24 91 09/25/25 07:15 12/19/24 05:13 87 12/19/24 03:49 99 H 139/85 12/19/24 03:47 36.4 C L 99 H 26 H 139/85 95 12/19/24 02:25 99 H 26 H 94 O2 Del Method FiO2 12/19/24 11:14 70 12/19/24 09:25 12/19/24 08:48 12/19/24 07:21 80 12/19/24 07:21 BiPAP 80 12/19/24 07:15 BiPAP 80 12/19/24 05:13 12/19/24 03:49 12/19/24 03:47 BiPAP 12/19/24 02:25 80 Laboratory Results 12/19/24 05:48 12/19/24 09:21 Abnormal Lab Results 12/13/24 12/18/24 12/18/24 Unknown 16:24 19:59 WBC RBC Hgb Hct MCV MCH MCHC RDW Std Deviation RDW Coeff of Joesph Plt Count MPV Absolute Nucleated RBC Nucleated RBC % (auto) Heparin Anti-Xa, Unfract VBG pH VBG pCO2 VBG pO2 VBG HCO3 VBG O2 Saturation VBG Base Excess Sodium 127 L Potassium 4.2 Chloride 88 L Carbon Dioxide 33 H Anion Gap 6 BUN 25 H Creatinine 0.96 Est Cr Clr Drug Dosing 56.4 eGFR 79.41 BUN/Creatinine Ratio 26.0 H Glucose 266 H POC Glucose 140 H Calcium 7.8 L Phosphorus Magnesium 2.0 Total Bilirubin Lactate Dehydrogenase C-Reactive Protein Total Protein Albumin U Histopl Galactoman Ag <0.2 12/18/24 12/18/24 12/19/24 22:11 23:54 00:40 WBC RBC Hgb Hct MCV MCH MCHC RDW Std Deviation RDW Coeff of Joesph Plt Count MPV Absolute Nucleated RBC Nucleated RBC % (auto) Heparin Anti-Xa, Unfract VBG pH VBG pCO2 VBG pO2 VBG HCO3 VBG O2 Saturation VBG Base Excess Sodium 128 L Potassium 3.9 Chloride 90 L Carbon Dioxide 33 H Anion Gap 5 BUN 24 H Creatinine 0.87 Est Cr Clr Drug Dosing 62.3 eGFR 86.69 BUN/Creatinine Ratio 27.6 H Glucose 199 H POC Glucose 205 H 124 H Calcium 7.7 L Phosphorus Magnesium Total Bilirubin Lactate Dehydrogenase C-Reactive Protein Total Protein Albumin U Histopl Galactoman Ag 12/19/24 12/19/24 12/19/24 05:48 05:48 05:48 WBC 7.20 RBC 2.42 L Hgb 7.4 L Hct 22.0 L MCV 90.9 MCH 30.6 MCHC 33.6 RDW Std Deviation 60.6 H RDW Coeff of Joesph 18.3 H Plt Count 102 L MPV 10.7 Absolute Nucleated RBC 0.02 Nucleated RBC % (auto) 0.3 Heparin Anti-Xa, Unfract 0.56 VBG pH VBG pCO2 VBG pO2 VBG HCO3 VBG O2 Saturation VBG Base Excess Sodium 131 L 131 L Potassium 4.2 4.2 Chloride 93 L Carbon Dioxide Anion Gap BUN Creatinine Est Cr Clr Drug Dosing eGFR BUN/Creatinine Ratio Glucose POC Glucose Calcium Phosphorus Magnesium Total Bilirubin Lactate Dehydrogenase C-Reactive Protein Total Protein Albumin U Histopl Galactoman Ag 12/19/24 12/19/24 12/19/24 05:48 05:48 05:48 WBC RBC Hgb Hct MCV MCH MCHC RDW Std Deviation RDW Coeff of Joesph Plt Count MPV Absolute Nucleated RBC Nucleated RBC % (auto) Heparin Anti-Xa, Unfract VBG pH VBG pCO2 VBG pO2 VBG HCO3 VBG O2 Saturation VBG Base Excess Sodium Potassium Chloride 94 L Carbon Dioxide 33 H 33 H Anion Gap 5 4 BUN 24 H Creatinine Est Cr Clr Drug Dosing eGFR BUN/Creatinine Ratio Glucose POC Glucose Calcium Phosphorus Magnesium Total Bilirubin Lactate Dehydrogenase C-Reactive Protein Total Protein Albumin U Histopl Galactoman Ag 12/19/24 12/19/24 12/19/24 05:48 05:48 05:48 WBC RBC Hgb Hct MCV MCH MCHC RDW Std Deviation RDW Coeff of Joesph Plt Count MPV Absolute Nucleated RBC Nucleated RBC % (auto) Heparin Anti-Xa, Unfract VBG pH VBG pCO2 VBG pO2 VBG HCO3 VBG O2 Saturation VBG Base Excess Sodium Potassium Chloride Carbon Dioxide Anion Gap BUN 24 H Creatinine 0.76 0.78 Est Cr Clr Drug Dosing 71.3 69.4 eGFR 90.30 BUN/Creatinine Ratio Glucose POC Glucose Calcium Phosphorus Magnesium Total Bilirubin Lactate Dehydrogenase C-Reactive Protein Total Protein Albumin U Histopl Galactoman Ag 12/19/24 12/19/24 12/19/24 05:48 05:48 05:48 WBC RBC Hgb Hct MCV MCH MCHC RDW Std Deviation RDW Coeff of Joesph Plt Count MPV Absolute Nucleated RBC Nucleated RBC % (auto) Heparin Anti-Xa, Unfract VBG pH VBG pCO2 VBG pO2 VBG HCO3 VBG O2 Saturation VBG Base Excess Sodium Potassium Chloride Carbon Dioxide Anion Gap BUN Creatinine Est Cr Clr Drug Dosing eGFR 89.59 BUN/Creatinine Ratio 31.6 H 30.8 H Glucose 90 90 POC Glucose Calcium 7.9 L Phosphorus Magnesium Total Bilirubin Lactate Dehydrogenase C-Reactive Protein Total Protein Albumin U Histopl Galactoman Ag 12/19/24 12/19/24 12/19/24 05:48 09:21 10:59 WBC RBC Hgb Hct MCV MCH MCHC RDW Std Deviation RDW Coeff of Joesph Plt Count MPV Absolute Nucleated RBC Nucleated RBC % (auto) Heparin Anti-Xa, Unfract VBG pH 7.36 VBG pCO2 56 H VBG pO2 52 VBG HCO3 32 VBG O2 Saturation 83.5 VBG Base Excess 4.6 Sodium 133 L Potassium 4.1 Chloride 95 L Carbon Dioxide 34 H Anion Gap 4 BUN 24 H Creatinine 0.81 Est Cr Clr Drug Dosing 66.9 eGFR 88.58 BUN/Creatinine Ratio 29.6 H Glucose 108 H POC Glucose Calcium 8.0 L 7.9 L Phosphorus 2.4 L Magnesium 2.0 Total Bilirubin Lactate Dehydrogenase 511 H C-Reactive Protein 10.96 H Total Protein Albumin U Histopl Galactoman Ag 12/19/24 12/19/24 11:31 11:41 WBC RBC Hgb Hct MCV MCH MCHC RDW Std Deviation RDW Coeff of Joesph Plt Count MPV Absolute Nucleated RBC Nucleated RBC % (auto) Heparin Anti-Xa, Unfract VBG pH VBG pCO2 VBG pO2 VBG HCO3 VBG O2 Saturation VBG Base Excess Sodium Potassium Chloride Carbon Dioxide Anion Gap BUN Creatinine Est Cr Clr Drug Dosing eGFR BUN/Creatinine Ratio Glucose POC Glucose 201 H Calcium Phosphorus Magnesium Total Bilirubin 0.4 Lactate Dehydrogenase 522 H C-Reactive Protein Total Protein 5.5 L Albumin 2.8 L U Histopl Galactoman Ag Diagnostic Findings Chest X-Ray 12/19/24 11:24 XR chest 1V portable CLINICAL HISTORY: S/P Thoracentesis COMPARISON STUDY: 12/16/2024 FINDINGS: Stable cavitating and left chest port. Stable cardiomegaly with pulmonary vascular congestion. Stable diffuse interstitial and patchy pulmonary opacities. No significant pleural effusions. No pneumothorax seen. IMPRESSION: No pneumothorax seen. ACT 112: Negative or not required by law. Electronically signed by: Jesu Morley M.D. 12/19/2024 11:56 AM PG Care Time/CCT Total # of Minutes Spent Total Time Spent with Patient: Total time spent is greater than 50% in coordination of care (as documented) at patient's floor/unit and/or counseling patient: Coding Level of Care Code 65208 SUB INP/OBS CARE 3/50MIN Diagnoses Acute hypoxic respiratory failure J96.01 Pneumocystis jiroveci pneumonia B59 Adenocarcinoma of right lung C34.91 Laterality: right Bilateral pulmonary embolism I26.99
[2024-12-19] MEDS ORDERED: Nursing to Pharmacy Communication STA (14:32)
--- NOTE | 2024-12-19 14:52 | Advance Care Plan Prog Note ---
Advanced Care Planning Note Date of Discussion December 19, 2024 ACP Discussion Diagnoses requiring ACP discussion: Lung adenocarcinoma, acute hypoxic hypercarbic respiratory failure, PJP pneumonia Benigno was seen at the bedside with his Flaquita and daughter Zeenat present. Due to altered mental status Benigno was unable to participate in this conversation however conversation was held at the bedside. CCU/Pulmonary provider Rayo HUYNH also present the entirety of the discussion. Discussion occurred over approximately 45 minutes, and follow-up discussion later in the afternoon lasting approximately 10 minutes. I reviewed Benigno's case, progression, and prognosis all family members present. He has had significant deterioration of his underlying lung function and has underlying lung adenocarcinoma. He is being treated for PJP, unfortunately he has shown minimal to no improvement despite treatment for this over the last 10 days. He has had slight improvement of the opacities on his right lung which may be due to some fluid status improvement however overall remains diffusely pulmonary opacities. Suspect that he has underlying combination of fibrotic lung disease and inflammatory changes with superimposed PJP pneumonia and some stable/improved vascular congestion. Despite this he has shown no clinical improvement, has had deteriorating mental status, and hypercapnia requiring BiPAP. Even if his PJP would improve guarded prognosis regarding his pulmonary status. Reviewed oxygenation and CO2. Etiology with his family at bedside, noting that even if oxygenation improved on oxygen needs showing poor clearance of CO2 and progressive hypercapnia. Family expresses that they are aware that he could pass or deteriorate at any point and that it is highly unlikely that he will recover to a significant degree from a pulmonary standpoint. They note that it was important to Benigno to minimize pain, and would likely endorse uncomfortable as a control. After meeting with him talking medicine cells, they acknowledged the above but also note that is important for them to continue current treatments through this Friday 12/22. They have they have discussed this and agreed somewhat to this as a time they felt was needed to feel like he gave him adequate treatments. Every, and while they do recognize that this is incredibly unlikely emotionally it is important to them to continue current treatment until that time unless he shows clear or uncontrolled pain/distress or deterioration. They acknowledged that the BiPAP is likely to be uncomfortable when it is aware of it, and if he shows overt distress including grimacing/pain/tachypnea then would want to reevaluate his condition at that time. They are aware that his hypercapnia may lead to sedation due to breathing that makes him have difficulty or able and expressing wishes/pain. He addresses appreciation of an overview of multiple treatment options, what comfort measures would look like if/when they transition, and what signs and symptoms versus look to help determine if discomfort when the patient is not able to verbalize this. Family confirmed DNR/DNI should he deteriorate to the point where he has a cardiac or pulmonary arrest Family does express an understanding of his current condition and treatment options and choices, and they also expressed appreciation for the care team. At this time we will continue current treatments including regular monitoring of sodium, hypertonic saline as needed, BiPAP, and antibiotics. He would not want escalation of care should he deteriorate or resuscitation in the cardiopulmonary arrest. We did discuss the risk/benefits of further attempts of TPN, given that this will not improve his underlying pulmonary status to significant degree and he should have a tolerance to this with rapid electrolyte shifts to which worsened acute hyponatremia, more likely to be harmful to him than short-term benefit of TPN. To defer further attempts at this at this time. Would like to reduce to 12/22, and then reassess for potential comfort options if he has not made any progress by then, we will reassess the sooner if he shows signs of significant deterioration or distress. Status Resuscitation Status DNR/DNI No Resuscitation Total Time I spent a total of 55 minutes was spent on this discussion, including counseling, answering questions, and completing, if any, pertinent advanced care planning forms/documents.
--- NOTE | 2024-12-19 15:08 | Palliative Care Progress Note ---
Date of Service December 19, 2024 Assessment & Plan (1) Dyspnea on minimal exertion: Plan: Pt continues to have worsening respiratory failure now bipap dependent and with ongoing dyspnea at rest. (2) Palliative care by specialist: Plan: Palliative care will continue to follow for ongoing GOC discussions and pt / family support. (3) Counseling regarding goals of care: Plan: TODAY: visited with pt at bedside, he opens eyes to voice but non-verbal. Currently Bipap dependent and obtunded, no visitors present. Per attending team, family has requested continued support through weekend with plan to transition to comfort directed care if no improvement or if he decompensates further. 12/09: Briefly met pt's in hwang outside pt room. She politely declined offer of assistance from palliative care team. Patient remains profoundly dyspneic and did not wish to engage in any conversation. 12/06: Met with Benigno at bedside, no visitors present. Briefly reinforced his previously expressed GOC. Benigno confirms DNR/DNI, but stated that he would like ALL other aggressive measures to continue. We discussed that he is on the maximal supplemental oxygen that we can offer and he remains dyspneic with significantly increased WOB at rest. He has discussed prone positioning with Dr Lake and is agreeable to this if it will offer benefit. Pulmonology team to discuss further with pt. Shared concern that despite aggressive interventions he is getting sicker and likely to not survive this hospitalization and he is suffering unnecessarily. I encouraged pt to consider PRN ativan for anxiety and/or morphine for dyspnea. Benigno acknowledged feeling sicker and that he will consider medications, but does not want anything that will make him drowsy at this time. Discussion with pt was kept brief due to conversational dyspnea / respiratory distress. was called by [facility] and will not be able to come to hospital at this time, but daughter is on her way. 12/04: Met with pt at bedside, no visitors present. Discussed GOC from 12:00 - 12:30. Pt shared that he is feeling very dyspneic with even minimal exertion, he stated that he is trying to minimize his conversations to preserve his energy. He shared that he believes his oxygen demand increased because he was not on humidified oxygen overnight. He shared that he developed a dry cough which persisted through the night and drove his heart rate up and pOx down. He shared concern that he is not getting better and verbalized that he does "not feel too miserable right now". He shared that he would like to continue to optimize his health, but also shared concern that "things are not heading in a good direction". Patient reinforced his wish to not be intubated and stated "if things get much worse, I would have other thoughts" about continuing aggressive care. He expressed hope that he will stabilize and be able to be weaned off the high level of oxygen. He remains hopeful for improvement with steroids and abx to allow him to return to independent living at home. Later in afternoon, along with [facility], met with pt and his at bedside. stated that she was upset to learn this morning while talking to patient on phone that he had decompensated over night and was transferred to PCU. She was frustrated to not have gotten a call from nursing staff overnight when he was transferred. Franky gave medical updates and explained to that pt is critically ill, but has stabilized. Discussed pt's rapid heart rate and increased oxygen demand requiring transfer to higher level of care. She shared that she is hopeful that he will continue to improve and glad that he is stable. Reinforced with the pt and his that he remains critically ill with very high oxygen demand. Plan as above Admission and Anticipated Discharge Date Admission Date: November 29, 2024 Subjective Pt remains in PCU, bipap dependent due to worsening respiratory failure. No visitors present. Pt obtunded on my assessment. Pt unable to tolerate TPN trial due to hyponatremia overnight. Review of Systems Review of Systems: Unobtainable due to cognitive status Physical Exam Constitutional: WD/WN, vitals as above Eyes: PERRL, conjunctivae normal, anicteric sclerae Neck: trachea midline, no thyromegaly Respiratory: + respiratory distress, + labored breath ing, + uses accessory muscles, + cough, + tachypneic and + prolonged expiratory phase Auscultation: + diminished lung sounds and + crackles pt dyspneic at rest and bipap dependent Cardiovascular: Rate/Rhythm: + irregularly irregular rapid AF with occasional runs of VT Gastrointestinal (Abdomen): normal bowel sounds, soft, nontender, no hepatosplenomegaly Musculoskeletal: generalized weakness Skin: no rashes, warm and dry Neurologic: obtunded Genitourinary: voiding dark pietro urine without difficulty. Results & Data Vital Signs (Past 12 Hours) Vital Signs Temp Pulse Pulse Resp BP BP Pulse Ox 12/19/24 11:14 96 H 22 91 12/19/24 09:25 95 H 12/19/24 08:48 102 H 118/74 12/19/24 07:21 91 H 24 90 12/19/24 07:21 94 H 24 91 12/19/24 07:15 12/19/24 05:13 87 12/19/24 03:49 99 H 139/85 12/19/24 03:47 36.4 C L 99 H 26 H 139/85 95 O2 Del Method FiO2 12/19/24 11:14 70 12/19/24 09:25 12/19/24 08:48 12/19/24 07:21 80 12/19/24 07:21 BiPAP 80 12/19/24 07:15 BiPAP 80 12/19/24 05:13 12/19/24 03:49 12/19/24 03:47 BiPAP Laboratory Results Abnormal lab results 12/18/24 12/18/24 12/18/24 Range/Units 16:24 19:59 22:11 RBC (4.70-6.10) M/uL Hgb (14.0-18.0) g/dl Hct (42.0-52.0) % RDW Std Deviation (36.4-46.3) fL RDW Coeff of Joesph (11.5-14.5) % Plt Count (130-400) K/uL VBG pCO2 (38-50) mmHg Sodium 127 L (136-145) mmol/L Chloride 88 L (98-107) mmol/L Carbon Dioxide 33 H (21-32) mmol/L BUN 25 H (6-23) mg/dl BUN/Creatinine Ratio 26.0 H (10-20) Glucose 266 H (70-99(Fasting)) mg/dl POC Glucose 140 H 205 H (70-99) mg/dl Calcium 7.8 L (8.6-10.3) mg/dl Phosphorus (2.5-4.9) mg/dl Lactate Dehydrogenase (86-244) U/L C-Reactive Protein (0-0.5) mg/dl Total Protein (6.0-8.3) gm/dl Albumin (3.4-5.0) gm/dl 12/18/24 12/19/24 12/19/24 Range/Units 23:54 00:40 05:48 RBC 2.42 L (4.70-6.10) M/uL Hgb 7.4 L (14.0-18.0) g/dl Hct 22.0 L (42.0-52.0) % RDW Std Deviation 60.6 H (36.4-46.3) fL RDW Coeff of Joesph 18.3 H (11.5-14.5) % Plt Count 102 L (130-400) K/uL VBG pCO2 (38-50) mmHg Sodium 128 L 131 L (136-145) mmol/L Chloride 90 L (98-107) mmol/L Carbon Dioxide 33 H (21-32) mmol/L BUN 24 H (6-23) mg/dl BUN/Creatinine Ratio 27.6 H (10-20) Glucose 199 H (70-99(Fasting)) mg/dl POC Glucose 124 H (70-99) mg/dl Calcium 7.7 L (8.6-10.3) mg/dl Phosphorus (2.5-4.9) mg/dl Lactate Dehydrogenase (86-244) U/L C-Reactive Protein (0-0.5) mg/dl Total Protein (6.0-8.3) gm/dl Albumin (3.4-5.0) gm/dl 12/19/24 12/19/24 12/19/24 Range/Units 05:48 05:48 05:48 RBC (4.70-6.10) M/uL Hgb (14.0-18.0) g/dl Hct (42.0-52.0) % RDW Std Deviation (36.4-46.3) fL RDW Coeff of Joesph (11.5-14.5) % Plt Count (130-400) K/uL VBG pCO2 (38-50) mmHg Sodium 131 L (136-145) mmol/L Chloride 93 L 94 L (98-107) mmol/L Carbon Dioxide 33 H 33 H (21-32) mmol/L BUN 24 H (6-23) mg/dl BUN/Creatinine Ratio (10-20) Glucose (70-99(Fasting)) mg/dl POC Glucose (70-99) mg/dl Calcium (8.6-10.3) mg/dl Phosphorus (2.5-4.9) mg/dl Lactate Dehydrogenase (86-244) U/L C-Reactive Protein (0-0.5) mg/dl Total Protein (6.0-8.3) gm/dl Albumin (3.4-5.0) gm/dl 12/19/24 12/19/24 12/19/24 Range/Units 05:48 05:48 05:48 RBC (4.70-6.10) M/uL Hgb (14.0-18.0) g/dl Hct (42.0-52.0) % RDW Std Deviation (36.4-46.3) fL RDW Coeff of Joesph (11.5-14.5) % Plt Count (130-400) K/uL VBG pCO2 (38-50) mmHg Sodium (136-145) mmol/L Chloride (98-107) mmol/L Carbon Dioxide (21-32) mmol/L BUN 24 H (6-23) mg/dl BUN/Creatinine Ratio 31.6 H 30.8 H (10-20) Glucose (70-99(Fasting)) mg/dl POC Glucose (70-99) mg/dl Calcium 7.9 L 8.0 L (8.6-10.3) mg/dl Phosphorus 2.4 L (2.5-4.9) mg/dl Lactate Dehydrogenase 511 H (86-244) U/L C-Reactive Protein 10.96 H (0-0.5) mg/dl Total Protein (6.0-8.3) gm/dl Albumin (3.4-5.0) gm/dl 12/19/24 12/19/24 12/19/24 Range/Units 09:21 10:59 11:31 RBC (4.70-6.10) M/uL Hgb (14.0-18.0) g/dl Hct (42.0-52.0) % RDW Std Deviation (36.4-46.3) fL RDW Coeff of Joesph (11.5-14.5) % Plt Count (130-400) K/uL VBG pCO2 56 H (38-50) mmHg Sodium 133 L (136-145) mmol/L Chloride 95 L (98-107) mmol/L Carbon Dioxide 34 H (21-32) mmol/L BUN 24 H (6-23) mg/dl BUN/Creatinine Ratio 29.6 H (10-20) Glucose 108 H (70-99(Fasting)) mg/dl POC Glucose 201 H (70-99) mg/dl Calcium 7.9 L (8.6-10.3) mg/dl Phosphorus (2.5-4.9) mg/dl Lactate Dehydrogenase (86-244) U/L C-Reactive Protein (0-0.5) mg/dl Total Protein (6.0-8.3) gm/dl Albumin (3.4-5.0) gm/dl 12/19/24 Range/Units 11:41 RBC (4.70-6.10) M/uL Hgb (14.0-18.0) g/dl Hct (42.0-52.0) % RDW Std Deviation (36.4-46.3) fL RDW Coeff of Joesph (11.5-14.5) % Plt Count (130-400) K/uL VBG pCO2 (38-50) mmHg Sodium (136-145) mmol/L Chloride (98-107) mmol/L Carbon Dioxide (21-32) mmol/L BUN (6-23) mg/dl BUN/Creatinine Ratio (10-20) Glucose (70-99(Fasting)) mg/dl POC Glucose (70-99) mg/dl Calcium (8.6-10.3) mg/dl Phosphorus (2.5-4.9) mg/dl Lactate Dehydrogenase 522 H (86-244) U/L C-Reactive Protein (0-0.5) mg/dl Total Protein 5.5 L (6.0-8.3) gm/dl Albumin 2.8 L (3.4-5.0) gm/dl Diagnostic Findings Chest CTA 11/29/24 17:04 Clinical history: Dyspnea Technique: Axial computed tomography images were obtained of the chest after the administration of intravenous contrast according to the CT angiogram protocol Comparison is made to the prior CT dated 09/23/2024 Findings: There is subsegmental peripheral pulmonary embolism in the lower lobes bilaterally. There is emphysema. There are slightly worsened multifocal groundglass infiltrates throughout both lungs. There is a calcified granuloma in the right lower lobe. There has been interval increase in size of multifocal nodular opacities in the right lower lobe, the largest measuring 2.8 cm and abutting the pleural surface.. There is a small right pleural effusion. There is no left pleural effusion or pneumothorax. There are multiple small and mildly enlarged mediastinal and bilateral hilar lymph nodes. The thoracic aorta appears unremarkable with no sign of aneurysm or dissection. There is no pericardial effusion. There is coronary atherosclerosis There is a small gallstone. There is a small hiatal hernia. No fracture is seen. No focal osseous lesion is evident Impression: 1. Bilateral lower lobe pulmonary embolism 2. Interval increase in size of multifocal nodular opacities in the right lower lobe. This could be inflammatory, though bronchogenic carcinoma is also possible. Close interval follow-up CT could be obtained or PET scan could be considered 3. Interval worsening of multifocal groundglass infiltrates, which may be due to viral pneumonitis 4. Emphysema 5. Mild mediastinal and bilateral hilar adenopathy 6. Small right pleural effusion 7. Small hiatal hernia 8. Cholelithiasis ACT 112: Positive. There are findings on this exam that require communication between the performing entity and the patient following Patient Test Result Information Act ([place] ACT 112) guidelines. Electronically signed by Juan Manuel Mackey 11-29-2024 7:[address] 12/12/24 07:23 CT chest diagnostic wo con CT DOSE: 819.46 mGy.cm CLINICAL HISTORY: worsening hyopxia, concern for aspiration. TECHNIQUE: Multiaxial CT images of the chest were performed without contrast. A dose lowering technique was utilized adhering to the principles of ALARA. COMPARISON STUDY: 11/29/2024 through 01/11/2024 FINDINGS: There is motion artifact due to difficulty breath holding. There is stable mild diffuse bronchiectasis. There is bronchial wall thickening consistent with bronchitis. There is moderate emphysema. There are increased diffuse reticular, groundglass, and patchy pulmonary opacities consistent with bilateral pneumonia. There is a lung mass with mildly irregular margins at the lateral right lower lobe measuring 3 cm greatest axial dimension, stable. There is a small right pleural effusion which layers dependently, increased in size. No pneumothorax. There is moderate cardiomegaly with prominence of the pulmonary vasculature consistent with CHF. 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 There are diffuse coronary artery calcifications. There is stable mediastinal and hilar adenopathy measuring up to 2.5 cm at a subcarinal lymph node. There is a small hiatal hernia. There are diffuse thoracic spine degenerative changes. IMPRESSION: 1. CHF with small right pleural effusion. 2. Diffusely increased pulmonary opacities likely represent a combination of pneumonia and pulmonary edema. 3. Stable 3 cm right lower lobe mass. 4. Otherwise as described. ACT 112: Negative or not required by law. Electronically signed by: Jesu Morley M.D. 12/12/2024 10:12 AM Chest X-Ray 12/19/24 11:24 XR chest 1V portable CLINICAL HISTORY: S/P Thoracentesis COMPARISON STUDY: 12/16/2024 FINDINGS: Stable cavitating and left chest port. Stable cardiomegaly with pulmonary vascular congestion. Stable diffuse interstitial and patchy pulmonary opacities. No significant pleural effusions. No pneumothorax seen. IMPRESSION: No pneumothorax seen. ACT 112: Negative or not required by law. Electronically signed by: Jesu Morley M.D. 12/19/2024 11:56 AM Medications Administered Current Inpatient Medications Al Hydrox/Mg Hydrox/Simethicone (Aluminum/Magnesium Susp 30 Ml Udc) 15 ml PO Q6H PRN PRN Reason: Heartburn Stop: 12/30/24 05:33 Last Admin: 11/30/24 05:47 Dose: 15 ml Albuterol (Albut/Ipratrop 3mg/0.5mg Neb 3 Ml Vial) 3 ml NEB Q6R PRN; Protocol PRN Reason: Shortness Of Breath Or Wheezing Stop: 01/13/25 12:59 Aspirin (Aspirin 81 Mg Ectab) 81 mg PO QAM RITO Stop: 12/30/24 08:59 Last Admin: 12/13/24 09:25 Dose: Not Given Atorvastatin Calcium (Atorvastatin 40 Mg Tab) 40 mg PO HS RITO Stop: 12/29/24 23:33 Last Admin: 12/12/24 20:10 Dose: Not Given Budesonide (Budesonide 0.5 Mg/2 Ml Vial (Pulmicort)) 0.5 mg NEB BIDR RITO Stop: 01/02/25 18:59 Last Admin: 12/19/24 07:21 Dose: 0.5 mg Fluticasone Propionate (Fluticasone Propionate Na Spr 16 Gm Btl) 1 sprays NA BID RITO Stop: 01/10/25 20:59 Last Admin: 12/19/24 08:47 Dose: 1 sprays Formoterol Fumarate (Formoterol 20 Mcg/2 Ml Vial) 20 mcg NEB BIDR [facility] Stop: 01/02/25 18:59 Last Admin: 12/19/24 07:21 Dose: 20 mcg Furosemide (Furosemide 40 Mg/4 Ml Vial) 40 mg IV BID17 [facility] Stop: 01/16/25 08:59 Last Admin: 12/19/24 08:47 Dose: 40 mg Haloperidol Lactate (Haloperidol Lactate 5 Mg/Ml 1 Ml Vial) 0.5 mg IV Q6H PRN PRN Reason: agitation or anxiety Stop: 01/14/25 14:14 Last Admin: 12/16/24 16:03 Dose: 0.5 mg Heparin Sodium (Porcine) (Heparin 100 Unit/Ml 5ml Flush) 5 ml FLUSH PRN PRN PRN Reason: Flush Stop: 01/12/25 07:13 Last Admin: 12/13/24 08:10 Dose: 5 ml Heparin Sodium/Dextrose (Heparin 34522 Unit/500 Ml D5w) 25,000 units in 500 mls @ 21 mls/hr IV .[id number] [facility]; Protocol Stop: 12/29/24 19:44 Last Admin: 12/19/24 11:40 Dose: 1,050 units/hr, 21 mls/hr Pantoprazole Sodium (Protonix) 40 mg in 10 mls @ 5 mls/min IV DAILY [facility] Stop: 01/05/25 15:29 Last Admin: 12/19/24 08:49 Dose: 5 mls/min Trimethoprim/Sulfamethoxazole (320 mg/ Dextrose) 520 mls @ 348.542 mls/hr IV Q8H [facility] Stop: 12/30/24 23:59 Last Infusion: 12/19/24 10:55 Dose: Infused Piperacillin Sod/Tazobactam Sod (Zosyn) 4.5 gm in 100 mls @ 25 mls/hr IV Q8H [facility]; Protocol Stop: 12/19/24 15:59 Last Infusion: 12/19/24 13:11 Dose: Infused Prochlorperazine 5 mg/ Syringe 5 mls @ 5 mls/min IV Q6H PRN PRN Reason: Nausea And Vomiting Stop: 01/14/25 14:02 Methylprednisolone 20 mg/ (Syringe) 0.32 mls @ 1.5 mls/min IV QAM [facility] Stop: 01/01/25 08:55 Methylprednisolone 30 mg/ (Syringe) 0.48 mls @ 1.5 mls/min IV QAM [facility] Stop: 12/25/24 08:59 Last Admin: 12/19/24 08:47 Dose: 1.5 mls/min Dextrose (D10w) 1,000 mls @ 0 mls/hr IV .Q0M PRN PRN Reason: protocol (see label comments) Stop: 12/20/24 11:49 Last Infusion: 12/19/24 01:57 Dose: 0 mls/hr Sodium Chloride (Hypertonic Saline 3%) 500 mls @ 30 mls/hr IV .[id number] [facility]; Protocol Stop: 12/20/24 21:14 Last Admin: 12/19/24 15:03 Dose: Not Given Levothyroxine Sodium 35 mcg/ (Syringe) 1.75 mls @ 2 mls/min IV DAILY@0900 [facility]; Protocol Stop: 01/19/25 08:59 Latanoprost (Latanoprost 0.005% Op Soln 2.5 Ml Btl) 1 drops OPR HS [facility] Stop: 12/29/24 23:33 Last Admin: 12/18/24 20:38 Dose: 1 drops Lorazepam (Lorazepam 2 Mg/1 Ml Vial) 0.5 mg IV Q8H PRN PRN Reason: Anxiety/Agitation Stop: 01/05/25 08:37 Last Admin: 12/18/24 23:45 Dose: 0.5 mg Metoprolol Succinate (Metoprolol Succ 25mg Ext Rel Tab) [facility] Stop: 12/30/24 08:59 Last Admin: 12/12/24 08:15 Dose: Not Given Metoprolol Tartrate (Metoprolol Tartrate 1 Mg/Ml Vial) 2.5 mg IV Q6H [facility] Stop: 01/11/25 08:59 Last Admin: 12/19/24 08:48 Dose: 2.5 mg Metoprolol Tartrate (Metoprolol Tartrate 1 Mg/Ml Vial) 2.5 mg IV Q4 PRN PRN Reason: HR >120 Stop: 01/12/25 12:31 Miscellaneous (Stop Clinolipid) 1 each N/A TODAY@04 [facility] Stop: 01/18/25 03:59 Last Admin: 12/18/24 21:45 Dose: 1 each Morphine Sulfate (Morphine Sulfate 2 Mg/Ml Carp) 1 mg IV Q4H PRN PRN Reason: Mod-Sev Pain (Scale 4-10) Stop: 12/19/24 18:11 Last Admin: 12/19/24 07:59 Dose: 1 mg Pantoprazole Sodium (Pantoprazole 40 Mg Tab) 40 mg PO DAILY [facility] Stop: 12/30/24 08:59 Last Admin: 12/06/24 11:02 Dose: Not Given Phenol (Chloraseptic (Phenol) 1.4% Soln 180 Ml Btl) 1 sprays MT Q2H PRN PRN Reason: Sore Throat Stop: 01/04/25 11:36 Tamsulosin HCl (Tamsulosin Hcl 0.4 Mg Cap) 0.8 mg PO QPM [facility] Stop: 12/29/24 23:33 Last Admin: 12/12/24 20:01 Dose: Not Given PG Care Time/CCT Total # of Minutes Spent Total Time Spent with Patient: Total time spent is greater than 50% in coordination of care (as documented) at patient's floor/unit and/or counseling patient: Coding [place] [address] SUB INP/OBS CARE 2/35MIN Patient Type Established History Expanded Problem Focused Exam Expanded Problem Focused Medical Decision Making Moderate Complexity Diagnoses Dyspnea on minimal exertion R06.09 Palliative care by specialist Z51.5 Counseling regarding goals of care Z71.89
[2024-12-19 15:19] LABS: Anion Gap 4.0 (3-11); Blood Urea Nitrogen 24.0 mg/dl (6-23); Calcium 7.9 mg/dl (8.6-10.3); Carbon Dioxide 36.0 mmol/L (21-32); Chloride 93.0 mmol/L (98-107); Creatinine Clr Calc Pharmacy 60.2 ml/min; Glucose 150.0 mg/dl (70-99(Fasting)); Potassium 4.7 mmol/L (3.5-5.1); Sodium 133.0 mmol/L (136-145)
[2024-12-19] MEDS: METOPROLOL TARTRATE 1 MG/ML VIAL IV PRN (15:29)
[2024-12-19 18:50] LABS: Anion Gap 5.0 (3-11); Blood Urea Nitrogen 25.0 mg/dl (6-23); Calcium 7.8 mg/dl (8.6-10.3); Carbon Dioxide 35.0 mmol/L (21-32); Chloride 90.0 mmol/L (98-107); Creatinine Clr Calc Pharmacy 54.2 ml/min; Glucose 207.0 mg/dl (70-99(Fasting)); Potassium 4.6 mmol/L (3.5-5.1); Sodium 130.0 mmol/L (136-145)
[2024-12-19 23:55] LABS: HCO3 ABG 36 mmol/L (19-24); Oxygen Saturation ABG 97.0 % (90-95); PCO2 ABG 58 mmHg (35-46); PO2 ABG 71 mmHg (80-95)
[2024-12-19 23:56] LABS: Allen Test Pos (Pos)
[2024-12-20 01:14] LABS: Anion Gap 4.0 (3-11); Blood Urea Nitrogen 30.0 mg/dl (6-23); Calcium 8.1 mg/dl (8.6-10.3); Carbon Dioxide 35.0 mmol/L (21-32); Chloride 91.0 mmol/L (98-107); Creatinine Clr Calc Pharmacy 46.3 ml/min; Glucose 97.0 mg/dl (70-99(Fasting)); Potassium 4.7 mmol/L (3.5-5.1); Sodium 130.0 mmol/L (136-145)
[2024-12-20 06:05] LABS: Hematocrit (blood only) 22.9 % (42.0-52.0); Hemoglobin 7.4 g/dl (14.0-18.0); Mean Corpuscular Hemoglobin 29.4 pg (25.0-34.0); Mean Corpuscular Volume 90.9 fL (80.0-100.0); Platelet Count 116 K/uL (130-400); RDW Standard Deviation 62.0 fL (36.4-46.3); Red Blood Count 2.52 M/uL (4.70-6.10); White Blood Count 7.08 K/ul (4.8-10.8)
[2024-12-20 06:23] LABS: ANTI-Xa, UFH(UnfractionatedHep 0.70 IU/ml (0.3-0.7)
[2024-12-20 06:24] LABS: Anion Gap 4.0 (3-11); Blood Urea Nitrogen 27.0 mg/dl (6-23); Calcium 8.1 mg/dl (8.6-10.3); Carbon Dioxide 34.0 mmol/L (21-32); Chloride 91.0 mmol/L (98-107); Creatinine Clr Calc Pharmacy 53.6 ml/min; Glucose 86.0 mg/dl (70-99(Fasting)); Magnesium 1.8 mg/dl (1.7-2.4); Potassium 4.5 mmol/L (3.5-5.1); Sodium 129.0 mmol/L (136-145)
[2024-12-20] MEDS: LEVOTHYROXINE SODIUM 35 MCG in SYRINGE 0 ML IV SCH (09:08)
[2024-12-20 09:15] LABS: Anion Gap 4.0 (3-11); Blood Urea Nitrogen 27.0 mg/dl (6-23); Calcium 8.3 mg/dl (8.6-10.3); Carbon Dioxide 35.0 mmol/L (21-32); Chloride 91.0 mmol/L (98-107); Creatinine Clr Calc Pharmacy 56.4 ml/min; Glucose 96.0 mg/dl (70-99(Fasting)); Potassium 4.5 mmol/L (3.5-5.1); Sodium 130.0 mmol/L (136-145)
--- NOTE | 2024-12-20 10:34 | Pulmonology Progress Note ---
<Statement entered by Roger Mayer MD - 12/20/24 14:06> I, Roger Mayer MD, supervised and reviewed the physical exam, assessment, plan, and management as documented by the Advanced Care Provider for this patient encounter. I discussed the case with them, confirmed the findings, and I concur with the proposed plan of care. I was available for consultation throughout the encounter and provided guidance as needed. Date of Service December 20, 2024 Assessment & Plan (1) Acute hypoxic respiratory failure: (2) Pneumocystis jiroveci pneumonia: (3) Adenocarcinoma of lung: Laterality: right Qualified Code(s): C34.91 - Malignant neoplasm of unspecified part of right bronchus or lung (4) Bilateral pulmonary embolism: Plan Patient is an 79-year-old male with a history of right lung adenocarcinoma, coronary artery disease, CAD, pulmonary hypertension, emphysema, hypothyroidism, GERD, hypertension, esophageal varices, TMJ and vitamin D deficiency. The patient follows with Dr. Mcbride in the pulmonary clinic. Was being treated outpatient with chemotherapy in September and received radiation treatment in October. The patient presented to the hospital 11/30/2024 with shortness of breath and lower extremity edema. Imaging on arrival showed bilateral lower lobe subsegmental pulmonary emboli and increasing GGO's in bilateral lung christians[place]. The patient was started on anticoagulation. He continued to have worsening respiratory failure with hypoxia for which pulmonary was consulted. Echocardiogram did not show evidence of RV strain with the PE. He was started on antibiotics to cover for community-acquired pneumonia and started on Bactrim and IV steroids. The patient continued to be hypoxic and required maximum Optiflow of 60 L and 100%. Steroids were continued and the dose was increased. Antibiotics were broadened to Zosyn and vancomycin. Lasix were added and the patient was aggressively diuresed. The patient had hyponatremia after Bactrim therefore this was discontinued. Urine Legionella was negative therefore atypical coverage with azithromycin was stopped. Sputum culture grew Staphylococcus hemolyticus sensitive to vancomycin and linezolid. Oncology was consulted, due to concern for radiation pneumonitis the plan was to initiate a dose of tocilizumab. However sputum cultures are now showing positive pneumocystis jiroveci PCR therefore tocilizumab has been discontinued and the patient was started on Bactrim. The patient had slightly improved however when examined on 12/12/2024 he was found to be profoundly hypoxic requiring maximum Optiflow in addition to Ventimask and still satting only in the mid 80s. Inflammatory markers and LDH are climbing. Imaging with x-ray appears worse. Assessment: Imaging from admission showed diffuse GGO's, more significant on the right however still present on the left. The patient also was found to have subsegmental PEs. Differential diagnosis included pneumonitis from radiation or chemotherapy versus infectious etiology. Sputum cultures initially only grew Staphylococcus hemolyticus for which the patient was treated appropriately. PCR from his sputum has resulted now and is showing PJP pneumonia. His CT findings with the GGO's could very likely have been PJP initially rather than radiation pneumonitis. At this point I do not think his PEs are really contributing to his hypoxia. He has been anticoagulated appropriately. Echo did not show evidence of RV dysfunction. He has both staph and PJP pneumonia. Both of these are likely contributing to his profound hypoxia. The patient has taken an interval turn for the worse. Chest x-ray today shows worsening of his pulmonary infiltrates. LDH peaked an down slightly today. CRP downtrending today. Has been relying on CPAP/BiPAP for last 5 days. Air hunger and dyspnea treated with morphine and lorazepam. Recommendations/plan: CPAP changed to Bipap to attempt to improve ventilation. Wean for saturation of 88 to 92%. Can continue with optiflow trials as tolerated. Please place gel protective nasal bridge under CPAP mask to prevent tissue breakdown. Remains NPO. If possible switching all of his medications to IV formula would be best. TPN not tolerated and discontinued. Patient has been on high-dose steroids with methylprednisolone, steroids were initiated on 12/03/2024. Given the immunocompromise state and respiratory failure continue steroids with the PJP pneumonia. Will do methylprednisolone 30 mg once daily for 10 days and then decrease to 20 mg daily until his course of Bactrim is complete. Continue IV Bactrim for 21 days. The patient did have some hyponatremia previously when he had Bactrim therefore we will need to watch the sodium closely. Sodium is dropping. Added normal saline 12/12 as he is not unable to take p.o. Given the severity of his illness I would prefer not to switch to alternative PJP treatment. Will initiate 3% sodium chloride today at 30 cc/hr and monitor NA Q4H. Infectious diseases consulted. Recommend continuing current regimen. Patient should remain on GI prophylaxis while on steroids. Completed vancomycin for the staph pneumonia. Zosyn added back 12/12. Voriconazole Stopped. Patient remains critically ill with a generally poor prognosis. CODE STATUS is DNR/DNI. Thank you for this consultation, I will continue to follow along with you. 38 minutes was the time spent reviewing the chart, obtaining history, performing the clinical exam, and updating the patient, family, and bedside nurse. Admission and Anticipated Discharge Date Admission Date: November 29, 2024 Subjective Patient remains obtunded this am. Patient still requires continuous Bipap. Goals of care discussion yesterday with Hospitalist and pulmonary team with plan to continue until Monday12/22/24 to transition to comfort measures or if patietn further declines. Will continue to support the patient at this time. Review of Systems 2 Review of Systems: Unobtainable due to reduced consciousness Physical Exam 2 Physical Exam: VITALS: Reviewed. WEIGHT/BMI reviewed. GEN: Chronically ill, states age appearing, well-developed, NAD. PSYCH: Obtunded/unresponsive HEENT -Head: NC/AT; -Eyes: PERRL, EOMI. No discharge or redn ess; -Ears: External ears are normal. -Nose: Normal nares. NECK: Supple, with no masses. CV: Tachycardic, S1/S2 present, no m/r/g LUNGS: Rhonchi appreciated in b/l lung christians[place]. Chest rise symmetrical. Breathing labored. ABD: Soft, NT/ND, NBS, no masses or organomegaly. : N/A SKIN: Warm, well perfused. No skin rashes or abnormal lesions. MSK: No deformities, Normal gait. EXT: No clubbing, cyanosis, or edema. NEURO: Lethargic, generalized weakness, not following, No focal deficits. Results & Data Results & Data Vital Signs (Past 12 Hours) Vital Signs Temp Pulse Pulse Resp BP BP Pulse Ox 12/20/24 09:09 94 H 12/20/24 08:48 103 H 134/74 12/20/24 07:54 36.9 C 97 H 23 134/74 91 12/20/24 07:30 103 H 22 97 12/20/24 07:30 108 H 22 97 12/20/24 07:30 94 H 12/20/24 04:10 104 H 12/20/24 02:24 104 H 24 91 12/20/24 02:19 36.4 C L 96 H 20 113/76 95 12/20/24 01:07 12/19/24 23:10 95 H 23 96 12/19/24 23:05 36.5 C 98 H 22 106/78 94 O2 Del Method FiO2 12/20/24 09:09 12/20/24 08:48 12/20/24 07:54 BiPAP 12/20/24 07:30 BiPAP 80 12/20/24 07:30 80 12/20/24 07:30 12/20/24 04:10 12/20/24 02:24 60 12/20/24 02:19 CPAP 12/20/24 01:07 BiPAP 12/19/24 23:10 60 12/19/24 23:05 CPAP Laboratory Results 12/20/24 05:26 12/20/24 08:38 Abnormal Lab Results 12/19/24 12/19/24 12/19/24 14:47 16:31 17:51 WBC RBC Hgb Hct MCV MCH MCHC RDW Std Deviation RDW Coeff of Joesph Plt Count MPV Absolute Nucleated RBC Nucleated RBC % (auto) Heparin Anti-Xa, Unfract ABG pH ABG pCO2 ABG pO2 ABG HCO3 ABG O2 Saturation ABG Base Excess Garrett Test Oxygen Given Sodium 133 L 130 L Potassium 4.7 4.6 Chloride 93 L 90 L Carbon Dioxide 36 H 35 H Anion Gap 4 5 BUN 24 H 25 H Creatinine 0.90 1.00 Est Cr Clr Drug Dosing 60.2 54.2 eGFR 85.80 75.61 BUN/Creatinine Ratio 26.7 H 25.0 H Glucose 150 H 207 H POC Glucose 108 H Calcium 7.9 L 7.8 L Phosphorus Magnesium Lactate Dehydrogenase C-Reactive Protein 12/19/24 12/19/24 12/19/24 20:10 23:35 23:43 WBC RBC Hgb Hct MCV MCH MCHC RDW Std Deviation RDW Coeff of Joesph Plt Count MPV Absolute Nucleated RBC Nucleated RBC % (auto) Heparin Anti-Xa, Unfract ABG pH 7.40 ABG pCO2 58 H ABG pO2 71 L ABG HCO3 36 H ABG O2 Saturation 97.0 H ABG Base Excess 9.0 H Garrett Test Pos Oxygen Given 60% FI02 Sodium Potassium Chloride Carbon Dioxide Anion Gap BUN Creatinine Est Cr Clr Drug Dosing eGFR BUN/Creatinine Ratio Glucose POC Glucose 154 H 105 H Calcium Phosphorus Magnesium Lactate Dehydrogenase C-Reactive Protein 12/20/24 12/20/24 12/20/24 00:22 05:26 06:29 WBC 7.08 RBC 2.52 L Hgb 7.4 L Hct 22.9 L MCV 90.9 MCH 29.4 MCHC 32.3 RDW Std Deviation 62.0 H RDW Coeff of Joesph 18.6 H Plt Count 116 L MPV 11.0 Absolute Nucleated RBC 0.06 Nucleated RBC % (auto) 0.8 Heparin Anti-Xa, Unfract 0.70 ABG pH ABG pCO2 ABG pO2 ABG HCO3 ABG O2 Saturation ABG Base Excess Garrett Test Oxygen Given Sodium 130 L 129 L Potassium 4.7 4.5 Chloride 91 L 91 L Carbon Dioxide 35 H 34 H Anion Gap 4 4 BUN 30 H 27 H Creatinine 1.17 1.01 Est Cr Clr Drug Dosing 46.3 53.6 eGFR 62.63 74.72 BUN/Creatinine Ratio 25.6 H 26.7 H Glucose 97 86 POC Glucose 98 Calcium 8.1 L 8.1 L Phosphorus 2.1 L Magnesium 1.8 Lactate Dehydrogenase 496 H C-Reactive Protein 9.19 H 12/20/24 12/20/24 08:38 11:15 WBC RBC Hgb Hct MCV MCH MCHC RDW Std Deviation RDW Coeff of Joesph Plt Count MPV Absolute Nucleated RBC Nucleated RBC % (auto) Heparin Anti-Xa, Unfract ABG pH ABG pCO2 ABG pO2 ABG HCO3 ABG O2 Saturation ABG Base Excess Garrett Test Oxygen Given Sodium 130 L Potassium 4.5 Chloride 91 L Carbon Dioxide 35 H Anion Gap 4 BUN 27 H Creatinine 0.96 Est Cr Clr Drug Dosing 56.4 eGFR 79.41 BUN/Creatinine Ratio 28.1 H Glucose 96 POC Glucose 193 H Calcium 8.3 L Phosphorus Magnesium Lactate Dehydrogenase C-Reactive Protein Diagnostic Findings No recent imaging. PG Care Time/CCT Total # of Minutes Spent Total Time Spent with Patient: Total time spent is greater than 50% in coordination of care (as documented) at patient's floor/unit and/or counseling patient: Coding Level of Care Code 57576 SUB INP/OBS CARE 2/35MIN Diagnoses Acute hypoxic respiratory failure J96.01 Pneumocystis jiroveci pneumonia B59 Adenocarcinoma of right lung C34.91 Laterality: right Bilateral pulmonary embolism I26.99
--- NOTE | 2024-12-20 13:16 | Infectious Disease Progress Nt ---
Date of Service December 20, 2024 Assessment & Plan (1) Pneumocystis jiroveci pneumonia: (2) Pneumonitis: (3) Bilateral pulmonary infiltrates: Plan 79 yo M with past medical history of non-small cell cancer of the right lung status post chemotherapy plus radiation, (chemotherapy stopped in 09/2024 secondary to cytopenias; last radiation 10/2024, plan to start immunotherapy), hypertension, hyperlipidemia, hypothyroidism, pulmonary hypertension, status post MVR, sp Port-A-Cath, esophageal varices presents to the ED on 11/29/24 w/ worsening dyspnea that worsened with exertion. He endorsed a productive cough that was blood-tinged as well as B/L lower extremity edema. He denied fever, chills. On admission he was afebrile, tachypneic, tachycardic and hypoxic. Labs notable for WBC of 1.52 (ANC 1.03), total bili 1.6, AST 60, ALT 48, CRP 11.33. Respiratory viral panel negative, beta D glucan less than 31 (negative), Legionella antigen negative, creatinine 1.03, MRSA screen negative, procalcitonin 0.10. Initial CTA chest showed bilateral lower lobe pulmonary embolism: Interval increase in size of multifocal nodular opacities in the right lower lobe which could be inflammatory though bronchogenic carcinoma is also possible. Interval worsening of multifocal ground glass opacities which may be due to viral pneumonitis. Mild mediastinal and bilateral hilar adenopathy. Small pleural effusion. Initial chest x-ray showed stable interstitial and faint pulmonary opacities. Throughout his course chest x-ray showed progression of the bilateral airspace opacities and interstitial thickening. He was initially started on piperacillin/tazobactam, dexamethasone, azithromycin and heparin GTT. His course was complicated by increasing O2 requirements despite 100% FiO2 with 60 L of oxygen. His O2 sats remained in the high 80s and low 90s. He was dyspneic with minimal movement. TMP-SMX was added for possible Pneumocystis Jirovecii infection. Serum beta D glucan was negative. Sputum culture grew Staphylococcus hemolyticus (penicillin and TMPSMX resistant). He was started on IV vancomycin and TMPSMX was discontinued. He was followed by pulmonary who felt that he was too high risk for bronchoscopy and it may be low yield. He was moved to the PCU. His prognosis was felt to be poor and it was thought that transitioning to comfort measures and hospice level of care would be appropriate. Patient is DNR /DNI but wanted all other aggressive measures to continue. He did not feel he was ready for comfort measures. He was evaluated by heme-onc and starting tocilizumab was considered given the possible inflammatory vs radiation related nature of the pneumonitis. Sputum PCR was sent for Pneumocystis jirovecii and finalized as positive. Infectious disease consulted for positive PJP PCR. He was restarted on TMPSMX 12/10. An E consult without video evaluation completed as video/camera is not working. Microbiology 12/13 Urine Histo Ag: neh 12/13 BDG: <31 12/13 BCx x2: NG 12/13 RVP: neg 12/12 CrAg: neg 12/12 Aspergillus Ag: neg 12/06 COVID-/flu/RSV: neg 12/05 sputum culture Staphylococcus hemolyticus (sensitive to linezolid, vancomycin) 12/05 sputum + PJP PCR 12/03 Beta D glucan <31 12/02 Urine Legionella Ag: neg 11/29 RVP: neg Antibiotics Ceftriaxone 12/02 - 12/03 Azithromycin 12/02 - 12/05 Zosyn 12/03 - 12/09, 12/12 - present TMPSMX 12/04 - 12/05, 12/10 - present Vancomycin Voriconazole 12/13 - 12/18 # Worsening acute hypoxic respiratory failure # Non-small cell lung cancer, sp chemotherapy, radiation ( pending immunotherapy) # Pneumocystis Jirovecii pneumonia ( PCR + but negative serum Beta D glucan) # Pulmonary Embolism # Possible pneumonitis (chemo- induced versus radiation-induced ) # Left chest port in place # Positive staph hemolyticus on sputum culture # Elevated LDH 495-->848-->781-->988. # S/P MVR Discussion: His worsening respiratory status is likely multifactorial in the setting of PE, lung adenocarcinoma, possible staph hemolyticus pneumonia, possible pneumonitis, possible PJP, CHF. Although this sputum PCR is positive PJP and LDH is elevated, Beta D glucan is negative--query PJP colonization. He is currently on TMPSMX + methylprednisolone without improvement. He completed 7 d of IV vancomycin. Continues on Zosyn. Per goals of care discussions, family requesting continued support through the weekend with plan to transition to comfort care if no improvement or if he decompensates further. Recommendations -Can continue Zosyn 4.5g IV q8h -Can continue TMPSMX 5 mg/kg IV q8hr for 21 days (12/10-12/31). Will need to closely monitor K, Na, Cr on therapy. Defer steroids to pulm Please note that ID does not round or write notes over the weekend. If questions or concerns arise, please contact the Infectious Disease Call Center and ask to speak with the covering ID physician. Admission and Anticipated Discharge Date Admission Date: November 29, 2024 Subjective This patient recommendation is based on a telemedicine consult request which was completed asynchronously through chart review and information provided by the primary physician. The patient was not seen or examined today. The evaluation is consultative in nature and all patient care and treatment decisions can either be accepted or rejected by the patient's primary hospital-based treating physician using their own independent medical judgment for their patient. Time Spent Reviewing Chart: 11 - 20 minutes Remains on bipap Results & Data Vital Signs (Past 12 Hours) Vital Signs Temp Pulse Pulse Resp BP BP BP 12/20/24 12:01 161/99 H 12/20/24 11:30 104 H 29 H 12/20/24 10:50 12/20/24 09:09 94 H 12/20/24 08:48 103 H 134/74 12/20/24 07:54 36.9 C 97 H 23 134/74 12/20/24 07:30 103 H 22 12/20/24 07:30 108 H 22 12/20/24 07:30 94 H 12/20/24 04:10 104 H 12/20/24 02:24 104 H 24 12/20/24 02:19 36.4 C L 96 H 20 113/76 Pulse Ox O2 Del Method FiO2 12/20/24 12:01 12/20/24 11:30 96 70 12/20/24 10:50 BiPAP 12/20/24 09:09 12/20/24 08:48 12/20/24 07:54 91 BiPAP 12/20/24 07:30 97 BiPAP 80 12/20/24 07:30 97 80 12/20/24 07:30 12/20/24 04:10 12/20/24 02:24 91 60 12/20/24 02:19 95 CPAP
[2024-12-20 13:40] LABS: Anion Gap 4.0 (3-11); Blood Urea Nitrogen 27.0 mg/dl (6-23); Calcium 8.0 mg/dl (8.6-10.3); Carbon Dioxide 35.0 mmol/L (21-32); Chloride 89.0 mmol/L (98-107); Creatinine Clr Calc Pharmacy 54.7 ml/min; Glucose 148.0 mg/dl (70-99(Fasting)); Potassium 4.4 mmol/L (3.5-5.1); Sodium 128.0 mmol/L (136-145)
[2024-12-20 17:05] LABS: Anion Gap 4.0 (3-11); Blood Urea Nitrogen 26.0 mg/dl (6-23); Calcium 8.0 mg/dl (8.6-10.3); Carbon Dioxide 35.0 mmol/L (21-32); Chloride 88.0 mmol/L (98-107); Creatinine Clr Calc Pharmacy 52.1 ml/min; Glucose 189.0 mg/dl (70-99(Fasting)); Potassium 4.8 mmol/L (3.5-5.1); Sodium 127.0 mmol/L (136-145)
[2024-12-20] MEDS ORDERED: SODIUM PHOSPHATE 3 MMOL/1 ML INFUSION IV STA (17:10)
--- NOTE | 2024-12-20 17:10 | Hospitalist Progress Note ---
Date of Service December 20, 2024 Assessment & Plan (1) Pneumocystis jiroveci pneumonia: (2) Pneumonitis: (3) Acute hypoxic respiratory failure: (4) Bilateral pulmonary embolism: (5) Atrial fibrillation with rapid ventricular response: (6) Adenocarcinoma of lung: (7) CAD (coronary artery disease): Plan 79yo male with lung cancer with metastatic disease to mediastinal lymph nodes, CAD s/p 2V CABG, porcine MVR and maze procedure in March 2024, paroxysmal atrial fibrillation, COPD presented with two weeks of progressive SOB and LE edema. Patient hypoxic to 88% on room air on arrival. Bilateral pulmonary emboli and b/l groundglass infiltrates seen on CTA chest on 11/29/24. complex hospital course. Since admission developed severe acute hypoxic respiratory failure and multifocal pneumonia. Steroids and treatment for PJP were initiated. He has been on and off of broad-spectrum antibiotics throughout the stay. Since late last week he has been CPAP dependent and has had progressive slow decline. Maintaining sats and CO2, however, breathing was more labored and patient was poorly responsive Goals of care See ACP note 12/19 for complete documentation Continue current care through 12/22 then reassess for goals and potential comfort measures at that time if he has not had meaningful improvement. #Acute hypoxic and hypercarbic respiratory failure - severe, - Remains critically ill and highly medically complex decision making required. -multifactorial including b/l PEs, PJP infection, staph haemolyticus pneumonia, acute on chronic HFpEF, possible radiation pneumonitis, COPD -respiratory biofire negative 11/29 -COVID/flu/RSV negative 12/05 -legionella urine ag negative, culture not collected (no sputum) -other pending labs per ID -he had been on broad-spectrum IV antibiotics and was diuresed earlier this admission; finished 5-day course of azithromycin previously -completed 7 days of vancomycin on 12/13 for possible staph haemolyticus pneumonia - Transiently on Bactrim earlier this admission, Bactrim resumed for PJP - 21 day course 12/10-12/31 with concomitant steroids -pip-tazo added 12/12 for possible aspiration on 12/12 -per pulmonary recs: solumedrol 30 IV q 12h for five days, decrease to daily 12/16 x 10 days, then decrease to 20 mg daily until bactrim complete. Taper ordered through 01/01. -voriconazole started 12/13 - stopped 12/18 after discussion with ID and pulmonary - fungal labs are negative and he hasn't shown signs of benefit - LDH downtrending, CRP down trended but then again uptrending 12/18 - 12/19 -pulmonary and infectious disease consultingdiscussed with pulmonary 12/18 -continue lasix 40 mg IV bid. Some improvements in x-ray opacities however he has not had any clinical improvements to Riurer this -CXR was much worse 12/16 -has required CPAP for severe hypoxia for days, worsening respiratory status with hypercapnia/hypercarbia and was switched to BiPAP continue BiPAP, steroids, Zosyn, Bactrim at this time # hyponatremia, hypophosphatemia worsening hyponatremia probably related to Bactrim, also happened earlier in the stay when he was on Bactrim before because of the severity of his illness we are hesitant to change treatment for the PJP 12/15 initiated 3% saline, Na increased from 127-->135 over 48h. 20 mL/h stable, 30 mL/h slow increase -once TPN initiated sodium fell rapidly down to 127. Stopped TPN because he cannot tolerate the electrolyte shifts - continue sodium checks. If sodium is greater than 130 can discontinue/hold. Sodium decreased to 127. 3% saline resumed Hyperphosphatemia repleted IV #FEN - not a candidate for feeding tube because dependent on NIV. - Not alert enough for po. Family wished trial of nutrition. Unable to tolerate TPN because sodium rapidly worsened. No further TPN, risks outweigh benefits at this time # acute toxic/metabolic encephalopathy - related to severe hypoxia, critical illness. now some hypercarbia - worsening, not awake Morphine is available every 4 hours for severe pain/distress distress, hold for sedation. #Atrial fibrillation with RVR -previous history of a.fib and underwent Maze procedure with his CABG and MVR in 03/2024 -echo with preserved EF, TSH wnl -continues with paroxysmal afib, continue metoprolol 2.5 mg IV q6h and PRN rate is adequately controlled at this time #Bilateral subsegmental pulmonary emboli - -Continue heparin drip -thrombocytopenia resolved #Adenocarcinoma of the lung - IIIb. -s/p chemotherapy and XRT with pause in chemotherapy in September 2024 due to cytopenias -was planning to start immunotherapy in December -[facility] #antineoplastic chemotherapy induced pancytopenia - -s/p 1 unit PRBCs on 12/07 -recent B12/folate wnl -recent Fe panel c/w acute phase reactant - CBC notable for leukocytosis and platelets now normal. Hg adequate #CAD #Hypertension #Hyperlipidemia -s/p CABG x 2V performed in March 2024 as well as mitral valve replacement with porcine valve and maze procedure -Echo 12/02 - preserved EF, bioprosthetic MVR functioning well -oral meds held - aspirin, atorvastatin, Metoprolol -stable #Hypothyroidism - -TSH wnl -NPO so levothyroxine held Last dose oral was able to be given 12/17. Given prolonged hold will convert to IV at 70% dose #Emphysema/COPD - -Continue nebs -Continue IV solumedrol #GERD -Continue Protonix IV #BPH - -resume flomax if taking po #DVT ppx - -heparin drip critically ill and worsening despite intensive efforts and maximal medical treatment (besides intubation) prognosis very poor. very complex medical decision making Per goals of care discussion and extensive shared decision making with family continue current treatment through Monday and then have repeat goals of care discussion at that time. They are aware he could further decompensate at any time in which case family should be called and likely will switch to MEDICAL PHYSICS PROFESSOR. Admission and Anticipated Discharge Date Admission Date: November 29, 2024 Buzz Pelaez is seen this morning. No significant clinical change and remained unresponsive overnight, on BiPAP. He is not able to answer questions this morning, does not follow commands. He is normotensive with a normal pulse and O2 sat of 96% at time of bedside visit. No obvious distress. Physical Exam Physical Exam: General: Lethargic. On BiPAP HEENT: Atraumatic, normocephalic. Unable to assess vision/hearing. Pupils are equal and responsive on manual eye traction. Does not track provider Pulm: Diffuse bilateral rhonchi. On BiPAP. No obvious respiratory distress/evidence of pain/discomfort cardiac: RRR, -mrg. Radial pulses intact and symmetrical. Extremities: Warm, dry Results & Data Results & Data Vital Signs (Past 12 Hours) Vital Signs Temp Pulse Pulse Resp BP BP BP 12/20/24 16:07 90 12/20/24 15:27 97 H 23 12/20/24 15:21 36.6 C 100 H 27 H 130/73 12/20/24 14:44 100 H 12/20/24 12:01 161/99 H 12/20/24 11:30 104 H 29 H 12/20/24 10:50 12/20/24 09:09 94 H 12/20/24 08:48 103 H 134/74 12/20/24 07:54 36.9 C 97 H 23 134/74 12/20/24 07:30 103 H 22 12/20/24 07:30 108 H 22 12/20/24 07:30 94 H Pulse Ox O2 Del Method FiO2 12/20/24 16:07 12/20/24 15:27 96 60 12/20/24 15:21 92 BiPAP 12/20/24 14:44 12/20/24 12:01 12/20/24 11:30 96 70 12/20/24 10:50 BiPAP 12/20/24 09:09 12/20/24 08:48 12/20/24 07:54 91 BiPAP 12/20/24 07:30 97 BiPAP 80 12/20/24 07:30 97 80 12/20/24 07:30 PG Care Time/CCT Total # of Minutes Spent Total Time Spent with Patient: Total time spent is greater than 50% in coordination of care (as documented) at patient's floor/unit and/or counseling patient: Coding Level of Care Code 85312 SUB INP/OBS CARE 3/50MIN Diagnoses Pneumocystis jiroveci pneumonia B59 Pneumonitis J98.4 Acute hypoxic respiratory failure J96.01 Bilateral pulmonary embolism I26.99 Atrial fibrillation with rapid ventricular response I48.91 Adenocarcinoma of right lung C34.91 Laterality: right CAD (coronary artery disease) I25.10 (6) Adenocarcinoma of lung Laterality: right Qualified Code(s): C34.91 - Malignant neoplasm of unspecified part of right bronchus or lung
[2024-12-20] MEDS: SODIUM PHOSPHATE 9 MMOL in SODIUM CHLORIDE 0.9% 250 ML IV ONE (18:05)
[2024-12-20 20:52] LABS: Anion Gap 7.0 (3-11); Blood Urea Nitrogen 27.0 mg/dl (6-23); Calcium 8.0 mg/dl (8.6-10.3); Carbon Dioxide 35.0 mmol/L (21-32); Chloride 87.0 mmol/L (98-107); Creatinine Clr Calc Pharmacy 51.1 ml/min; Glucose 135.0 mg/dl (70-99(Fasting)); Potassium 4.7 mmol/L (3.5-5.1); Sodium 129.0 mmol/L (136-145)
[2024-12-21 07:35] LABS: Anion Gap 4.0 (3-11); Blood Urea Nitrogen 29.0 mg/dl (6-23); Calcium 8.2 mg/dl (8.6-10.3); Carbon Dioxide 36.0 mmol/L (21-32); Chloride 87.0 mmol/L (98-107); Creatinine Clr Calc Pharmacy 56.4 ml/min; Glucose 89.0 mg/dl (70-99(Fasting)); Potassium 4.8 mmol/L (3.5-5.1); Sodium 127.0 mmol/L (136-145)
[2024-12-21 07:51] LABS: ANTI-Xa, UFH(UnfractionatedHep 0.74 IU/ml (0.3-0.7)
[2024-12-21] MEDS ORDERED: STOP ORDER ONE (08:24)
[2024-12-21] MEDS ORDERED: STAT IV/IM STA (08:24)
[2024-12-21] MEDS: SODIUM CHLORIDE 3 % 500 ML IV SCH (09:11)
--- NOTE | 2024-12-21 12:45 | Hospitalist Progress Note ---
Date of Service December 21, 2024 Assessment & Plan (1) Pneumocystis jiroveci pneumonia: (2) Pneumonitis: (3) Acute hypoxic respiratory failure: (4) Bilateral pulmonary embolism: (5) Atrial fibrillation with rapid ventricular response: (6) Adenocarcinoma of lung: (7) CAD (coronary artery disease): Plan 79yo male with lung cancer with metastatic disease to mediastinal lymph nodes, CAD s/p 2V CABG, porcine MVR and maze procedure in March 2024, paroxysmal atrial fibrillation, COPD presented with two weeks of progressive SOB and LE edema. Patient hypoxic to 88% on room air on arrival. Bilateral pulmonary emboli and b/l groundglass infiltrates seen on CTA chest on 11/29/24. complex hospital course. Since admission developed severe acute hypoxic respiratory failure and multifocal pneumonia. Steroids and treatment for PJP were initiated. He has been on and off of broad-spectrum antibiotics throughout the stay. Since late last week he has been CPAP dependent and has had progressive slow decline. Maintaining sats and CO2, however, breathing was more labored and patient was poorly responsive Goals of care See ACP note 12/19 for complete documentation Continue current care through 12/22 then reassess for goals and potential comfort measures at that time if he has not had meaningful improvement. - No clinical improvement AM 12/21 #Acute hypoxic and hypercarbic respiratory failure - severe, - Remains critically ill and highly medically complex decision making required. -multifactorial including b/l PEs, PJP infection, staph haemolyticus pneumonia, acute on chronic HFpEF, possible radiation pneumonitis, COPD -respiratory biofire negative 11/29. COVID/flu/RSV negative 12/05 legionella urine ag negative, culture not collected (no sputum) -he had been on broad-spectrum IV antibiotics and was diuresed earlier this admission; finished 5-day course of azithromycin previously -completed 7 days of vancomycin on 12/13 for possible staph haemolyticus pneumonia - Transiently on Bactrim earlier this admission, Bactrim resumed for PJP - 21 day course 12/10-12/31 with concomitant steroids -pip-tazo added 12/12 for possible aspiration on 12/12 -per pulmonary recs: solumedrol 30 IV q 12h for five days, decrease to daily 12/16 x 10 days, then decrease to 20 mg daily until bactrim complete. Taper ordered through 01/01. -voriconazole started 12/13 - stopped 12/18 after discussion with ID and pulmonary - fungal labs are negative and he hasn't shown signs of benefit - LDH downtrending, CRP down trended but then again uptrending 12/18 - 12/19 -continue lasix 40 mg IV bid for net free water excretion Some improvements in x-ray opacities however he has not had any clinical improvements to mirror this -CXR was much worse 12/16. Has required CPAP for severe hypoxia for days, worsening respiratory status with hypercapnia/hypercarbia and was switched to BiPAP continue BiPAP, steroids, Zosyn, Bactrim at this time # hyponatremia, hypophosphatemia worsening hyponatremia probably related to Bactrim, also happened earlier in the stay when he was on Bactrim before because of the severity of his illness we are hesitant to change treatment for the PJP 12/15 initiated 3% saline, Na increased from 127-->135 over 48h. 20 mL/h stable, 30 mL/h slow increase -once TPN initiated sodium fell rapidly down to 127. Stopped TPN because he cannot tolerate the electrolyte shifts - continue sodium checks. If sodium is greater than 130 can discontinue/hold. Sodium decreased to 127. 3% saline resumed again 12/21 Hyperphosphatemia repleted IV. Large free water component to this #FEN - not a candidate for feeding tube because dependent on NIV. - Not alert enough for po. Family wished trial of nutrition. Unable to tolerate TPN because sodium rapidly worsened. No further TPN, risks outweigh benefits at this time # acute toxic/metabolic encephalopathy - related to severe hypoxia, critical illness. now some hypercarbia Morphine is available every 4 hours for severe pain/distress distress Obtunded, offers no conversation 12/21 #Atrial fibrillation with RVR -previous history of a.fib and underwent Maze procedure with his CABG and MVR in 03/2024 -echo with preserved EF, TSH wnl -continues with paroxysmal afib, continue metoprolol 2.5 mg IV q6h and PRN rate is reasonably controlled at this time #Bilateral subsegmental pulmonary emboli - -Continue heparin drip -CBC periodically, prior thrombocytopenia have resolved #Adenocarcinoma of the lung - IIIb. -s/p chemotherapy and XRT with pause in chemotherapy in September 2024 due to cytopenias -was planning to start immunotherapy in December -[facility] #antineoplastic chemotherapy induced pancytopenia - -s/p 1 unit PRBCs on 12/07 -recent B12/folate wnl -recent Fe panel c/w acute phase reactant - CBC notable for leukocytosis and platelets now normal. Hg adequate #CAD, Hypertension, Hyperlipidemia -s/p CABG x 2V performed in March 2024 as well as mitral valve replacement with porcine valve and maze procedure -Echo 12/02 - preserved EF, bioprosthetic MVR functioning well -oral meds held - aspirin, atorvastatin, Metoprolol -stable #Hypothyroidism - -TSH wnl -NPO so levothyroxine held Last dose oral was able to be given 12/17. Given prolonged hold will convert to IV at 70% dose #Emphysema/COPD - -Continue nebs -Continue IV solumedrol #GERD -Continue Protonix IV #BPH - -resume flomax if taking po #DVT ppx - -heparin drip continued critically ill and worsening despite intensive efforts and maximal medical treatment (besides intubation) prognosis very poor. very complex medical decision making Per goals of care discussion and extensive shared decision making with family continue current treatment through Monday and then have repeat goals of care discussion at that time. They are aware he could further decompensate at any time in which case family should be called and likely will switch to LAB TECHNOLOGIST. Admission and Anticipated Discharge Date Admission Date: November 29, 2024 Subjective Unable to obtain subjective due to mental status No overnight events Sodium <130, 3% saline restarted Physical Exam Physical Exam: General: Lethargic/obtunded. On BiPAP HEENT: Atraumatic, normocephalic. Unable to assess vision/hearing. Pulm: Diffuse bilateral rhonchi. On BiPAP. No obvious respiratory distress/evidence of pain/discomfort cardiac: tachycardic. Radial pulses intact and symmetrical. Extremities: Warm, dry Results & Data Results & Data Vital Signs (Past 12 Hours) Vital Signs Temp Pulse Pulse Resp BP BP Pulse Ox 12/21/24 10:54 100 H 26 H 95 12/21/24 08:12 99 H 12/21/24 08:00 103 H 12/21/24 07:47 36.6 C 103 H 26 H 126/77 91 12/21/24 07:43 101 H 126/77 12/21/24 07:17 101 H 25 H 89 L 12/21/24 07:17 101 H 25 H 89 L 12/21/24 03:02 36.6 C 95 H 18 126/68 94 12/21/24 02:50 96 H 12/21/24 02:14 101 H 24 95 O2 Del Method FiO2 12/21/24 10:54 65 12/21/24 08:12 12/21/24 08:00 12/21/24 07:47 BiPAP 12/21/24 07:43 12/21/24 07:17 60 12/21/24 07:17 BiPAP 60 12/21/24 03:02 BiPAP 12/21/24 02:50 12/21/24 02:14 60 PG Care Time/CCT Total # of Minutes Spent Total Time Spent with Patient: Total time spent is greater than 50% in coordination of care (as documented) at patient's floor/unit and/or counseling patient: Coding Level of Care Code 37224 SUB INP/OBS CARE 50MIN Diagnoses Pneumocystis jiroveci pneumonia B59 Pneumonitis J98.4 Acute hypoxic respiratory failure J96.01 Bilateral pulmonary embolism I26.99 Atrial fibrillation with rapid ventricular response I48.91 Adenocarcinoma of right lung C34.91 Laterality: right CAD (coronary artery disease) I25.10 (6) Adenocarcinoma of lung Laterality: right Qualified Code(s): C34.91 - Malignant neoplasm of unspecified part of right bronchus or lung
[2024-12-21 14:21] LABS: Anion Gap 5.0 (3-11); Blood Urea Nitrogen 26.0 mg/dl (6-23); Calcium 8.0 mg/dl (8.6-10.3); Carbon Dioxide 34.0 mmol/L (21-32); Chloride 88.0 mmol/L (98-107); Creatinine Clr Calc Pharmacy 53.1 ml/min; Glucose 123.0 mg/dl (70-99(Fasting)); Potassium 4.8 mmol/L (3.5-5.1); Sodium 127.0 mmol/L (136-145)
[2024-12-21 14:33] LABS: ANTI-Xa, UFH(UnfractionatedHep 0.67 IU/ml (0.3-0.7)
[2024-12-21 16:45] LABS: iSTAT Art Bld Gas Base Excess 7.0 mmol/L (-9-1.8); iSTAT Art Bld Gas pCO2 Correct 91 mmHg (35-46); iSTAT Art Bld Gas pH Corrected 7.192 (7.35-7.45); iSTAT Arterial Blood Gas pO2 C 70
[2024-12-21] MEDS ORDERED: ONDANSETRON INJ 2 MG/ML 2 ML VIAL IV PRN (18:37)
--- NOTE | 2024-12-21 18:48 | Advance Care Plan Prog Note ---
Advanced Care Planning Note Date of Discussion December 21, 2024 ACP Discussion Diagnoses requiring ACP discussion: PJP Pneumonia, Hypercapneic Hypoxic Respiratory Failure Re-evaluated at bedside ~1630hrs. Patient is showing signs of respiratory distress including clavicular retractions, tachypnea, tachycardia. He does not follow commands, squeeze hands weakly, or track with his eyes when opened with gentle traction. Pupils are reactive. He has not had an MAIDA, tachycardia is sinus and improved slightly with his scheduled metoprolol. ABG shows pH 7.17, PCO2 95. Lungs remain coarse. 6-8cc/kg IBW goal ~ 396-528cc, Tidal volumes have been appropriate ~ 500-600ccs at bedside @ 8/8cmH2O. On reassessment does have worsening retractions, TV 400-500s. RR 24s. He shows progressive respiratory fatigue on reassessment. Despite goal minute ventilation he has progressive hypercapnic respiratory failure with underlying lung fibrosis and PJP injection which has not responded to treatment. I called patients Flaquita who was able to come to promptly bedside with her daughter. They express appreciation of all care he has been given, and agree he would not want further escalation of care or invasive treatment. They recognize he is critically ill, progressively acidotic. They called extended family to bedside who were able to arrive at bedside. Reviewed Benigno's current condition, progression, and prognosis at length with his and extended family. They agree that he has not progressed, and given worsening this afternoon as noted above would like to focus on Marcus comfort and to transition to MAGNET MAKER. After this overview of his condition and progression all questions were answered to families satisfaction. They again express appreciation of care both by nursing and providers. Due to his obvious respiratory distress and discomfort they would like to transition to MAGNET MAKER, and agree w/ a dose of morphine for existing distress prior to moving bipap. After this, can transition to NC and treat symptomatically with morphine for dyspnea/resp distress and ativan for anxiety if seen/expressed. His would like to be present at the bedside when he is transitioned off bipap. They do not wish for him to be moved from his current room as they have a strong relationship with the nurses and providers so far. This is reasonable, and given his extreme frailty and decompensation bed transport would not be appropriate at this time. Transitioned to MAGNET MAKER. He is not stable for transition to home hospice, and has ongoing distress requiring IV treatment at this time. Status Resuscitation Status DNR/DNI No Resuscitation Total Time I spent a total of 130 minutes was spent on this discussion, including counseling, answering questions, and completing, if any, pertinent advanced care planning forms/documents.
[2024-12-21] MEDS: GLYCOPYRROLATE 0.2 MG/ML VIAL IV PRN (19:01)
[2024-12-21] MEDS: MoRPHine SULFATE 2 MG/ML CARP IV STA (19:02)
[2024-12-21] MEDS: MoRPHine SULFATE 2 MG/ML CARP IV PRN (19:02)
[2024-12-21] MEDS ORDERED: MoRPHine SULFATE 2 MG/ML CARP IV PRN ×2 (19:06→19:21)
[2024-12-21] MEDS ORDERED: STAT IV Infusion **Titration per Protocol STA ×2 (19:07→22:09)
[2024-12-21] MEDS ORDERED: MoRPHine SULF 100 MG/100 ML BAG IV SCH (19:15)
[2024-12-21 19:37] VITALS: BP 106/74; PULSE 88; RESP 18; TEMP 97.7; O2SAT 94
[2024-12-21] MEDS: MoRPHine SULFATE 2 MG/ML CARP ONE (20:37)
[2024-12-21] MEDS: MoRPHine SULF 100 MG/100 ML BAG IV SCH (22:45)
--- NOTE | 2024-12-22 04:11 | Death Pronouncement Note ---
Date of Service December 22, 2024 Pronouncement Note Admission Date Admission Date: November 29, 2024 Contributing Factors (1) Pneumocystis jiroveci pneumonia: (2) Pneumonitis: (3) Acute hypoxic respiratory failure: (4) Bilateral pulmonary embolism: (5) Atrial fibrillation with rapid ventricular response: (6) Adenocarcinoma of lung: (7) CAD (coronary artery disease): Summary Additional details: I was called to pronounce the of Benigno Shay ( 1945) by nurse on 12/22/2024. Upon entering the room, patient was found to be in a terminal state. They were unresponsive to, and did not withdrawal from, verbal or tactile stimuli. On cardiopulmonary exam, they were found to be without detectable carotid pulses, and without spontaneous heart tones or respirations. Time of was pronounced by me on 12/22/2024 at 04:03. Attending physician was notified was notified. was present at bedside for pronouncement. Signed: Marilyn Santiago DO Additional Data Attending physician: Timothy Pelletier MD
--- NOTE | 2024-12-22 07:39 | Discharge Summary ---
Discharge Summary Date of Service December 22, 2024 Principal Dx & Hospital Course #1 = Principal Diagnosis (1) Pneumocystis jiroveci pneumonia: (2) Pneumonitis: (3) Acute hypoxic respiratory failure: (4) Bilateral pulmonary embolism: (5) Atrial fibrillation with rapid ventricular response: (6) Adenocarcinoma of lung: (7) CAD (coronary artery disease): Plan 79yo male with lung cancer with metastatic disease to mediastinal lymph nodes, CAD s/p 2V CABG, porcine MVR and maze procedure in March 2024, paroxysmal atrial fibrillation, COPD presented with two weeks of progressive SOB and LE edema. Patient hypoxic to 88% on room air on arrival. Bilateral pulmonary emboli and b/l groundglass infiltrates seen on CTA chest on 11/29/24. complex hospital course. Since admission developed severe acute hypoxic respiratory failure and multifocal pneumonia. Steroids and treatment for PJP were initiated. He has been on and off of broad-spectrum antibiotics throughout the stay. Since late last week he has been CPAP dependent and has had progressive slow decline. Maintaining sats and CO2, however, breathing was more labored and patient was poorly responsive Last note copied below for documentation completion. Patient transitioned to comfort measures in the active phase of dying due to acute hypoxic/hypercapnic respiratory failure multifactorial with underlying pulmonary fibrosis, underl jose roberto lung cancer, and with acute PJP pneumonia not responsive to treatment. He was made comfort measures in the evening of 12/21, and passed early the following morning. Cause of : 1. Acute hypoxic/hypercapnic respiratory failure 2. Pneumocystis jiroveci pneumonia Contributing factors: Adenocarcinoma of the lung Bilateral pulmonary embolism Pulmonary fibrosis Goals of care See ACP note 12/19 for complete documentation Continue current care through 12/22 then reassess for goals and potential comfort measures at that time if he has not had meaningful improvement. - No clinical improvement AM 12/21 #Acute hypoxic and hypercarbic respiratory failure - severe, - Remains critically ill and highly medically complex decision making required. -multifactorial including b/l PEs, PJP infection, staph haemolyticus pneumonia, acute on chronic HFpEF, possible radiation pneumonitis, COPD -respiratory biofire negative 11/29. COVID/flu/RSV negative 12/05 legionella urine ag negative, culture not collected (no sputum) -he had been on broad-spectrum IV antibiotics and was diuresed earlier this admission; finished 5-day course of azithromycin previously -completed 7 days of vancomycin on 12/13 for possible staph haemolyticus pneumonia - Transiently on Bactrim earlier this admission, Bactrim resumed for PJP - 21 day course 12/10-12/31 with concomitant steroids -pip-tazo added 12/12 for possible aspiration on 12/12 -per pulmonary recs: solumedrol 30 IV q 12h for five days, decrease to daily 12/16 x 10 days, then decrease to 20 mg daily until bactrim complete. Taper ordered through 01/01. -voriconazole started 12/13 - stopped 12/18 after discussion with ID and pulmonary - fungal labs are negative and he hasn't shown signs of benefit - LDH downtrending, CRP down trended but then again uptrending 12/18 - 12/19 -continue lasix 40 mg IV bid for net free water excretion Some improvements in x-ray opacities however he has not had any clinical improvements to mirror this -CXR was much worse 12/16. Has required CPAP for severe hypoxia for days, worsening respiratory status with hypercapnia/hypercarbia and was switched to BiPAP continue BiPAP, steroids, Zosyn, Bactrim at this time # hyponatremia, hypophosphatemia worsening hyponatremia probably related to Bactrim, also happened earlier in the stay when he was on Bactrim before because of the severity of his illness we are hesitant to change treatment for the PJP 12/15 initiated 3% saline, Na increased from 127-->135 over 48h. 20 mL/h stable, 30 mL/h slow increase -once TPN initiated sodium fell rapidly down to 127. Stopped TPN because he cannot tolerate the electrolyte shifts - continue sodium checks. If sodium is greater than 130 can discontinue/hold. Sodium decreased to 127. 3% saline resumed again 12/21 Hyperphosphatemia repleted IV. Large free water component to this #FEN - not a candidate for feeding tube because dependent on NIV. - Not alert enough for po. Family wished trial of nutrition. Unable to tolerate TPN because sodium rapidly worsened. No further TPN, risks outweigh benefits at this time # acute toxic/metabolic encephalopathy - related to severe hypoxia, critical illness. now some hypercarbia Morphine is available every 4 hours for severe pain/distress distress Obtunded, offers no conversation 12/21 #Atrial fibrillation with RVR -previous history of a.fib and underwent Maze procedure with his CABG and MVR in 03/2024 -echo with preserved EF, TSH wnl -continues with paroxysmal afib, continue metoprolol 2.5 mg IV q6h and PRN rate is reasonably controlled at this time #Bilateral subsegmental pulmonary emboli - -Continue heparin drip -CBC periodically, prior thrombocytopenia have resolved #Adenocarcinoma of the lung - IIIb. -s/p chemotherapy and XRT with pause in chemotherapy in September 2024 due to cytopenias -was planning to start immunotherapy in December -primary oncologist - [facility] #antineoplastic chemotherapy induced pancytopenia - -s/p 1 unit PRBCs on 12/07 -recent B12/folate wnl -recent Fe panel c/w acute phase reactant - CBC notable for leukocytosis and platelets now normal. Hg adequate #CAD, Hypertension, Hyperlipidemia -s/p CABG x 2V performed in March 2024 as well as mitral valve replacement with porcine valve and maze procedure -Echo 12/02 - preserved EF, bioprosthetic MVR functioning well -oral meds held - aspirin, atorvastatin, Metoprolol -stable #Hypothyroidism - -TSH wnl -NPO so levothyroxine held Last dose oral was able to be given 12/17. Given prolonged hold will convert to IV at 70% dose #Emphysema/COPD - -Continue nebs -Continue IV solumedrol #GERD -Continue Protonix IV #BPH - -resume flomax if taking po #DVT ppx - -heparin drip continued critically ill and worsening despite intensive efforts and maximal medical treatment (besides intubation) prognosis very poor. very complex medical decision making Per goals of care discussion and extensive shared decision making with family continue current treatment through Monday and then have repeat goals of care discussion at that time. They are aware he could further decompensate at any time in which case family should be called and likely will switch to [employer]. Admission HPI Per Admitting Provider Benigno Shay is an 79-year-old male presenting with 2 weeks of progressive shortness of breath. Patient with history of lung adenocarcinoma involving the right lower lobe with metastatic disease to the mediastinal and hilar lymph nodes per PET/CT 09/11/2024 (T4N1). He completed 4 sessions of chemotherapy - last treatment reported to be 4 weeks ago. Chemotherapy has since been held due to to pancytopenia and significant thrombocytopenia. He completed radiation therapy with his last treatment being 11/21/2024. He has an appointment in December with Oncology to discuss starting Immunotherapy. Patient has been receiving IVF through the [facility] and was given 2L of crystalloid this week. He presents today with 2 weeks of progressive shortness of breath. He reports that his pulse oximetry at home is typically 95 of 96% but this week it has been in the low 80's. He also has increased bilateral LE edema. He has cough productive for sputum, occasionally hall/red in color and chills. Family also reports that he has been more fatigued at home. Poor appetite and decreased oral intake. He denies fever, chest pain, palpitations, nauseas, vomiting, diarrhea or urinary complaints. In the ER patient is hypoxic on room air - placed on 4L NC with improvement ER Course: Albuterol neb x 2 Plasmalyte 1L Heparin gtt Discharge Exam See Resident Exam. Discharge Plan Discharge Items Patient Disposition: Other Date/Time: 12/22/24 04:03 Hospital Stay Data Consultations 11/29/24 19:28 ED Decision to Admit Stat 12/02/24 08:36 Consult Pulmonology Routine 12/03/24 11:52 Consult Palliative Care Routine 12/05/24 17:33 Consult Cardiology Routine 12/09/24 09:35 Consult Oncology Routine 12/10/24 08:10 Consult Infectious Diseases Routine Diagnostic Imagining Performed 11/29/24 17:04 CT angio chest PE protocol Stat 12/12/24 07:23 CT chest diagnostic wo con Urgent Total Time Total Time Spent Total Time Spent (In Minutes): 25 minutes on documentation including DC Summary and EVitals documentation Coding Level of Care Code None Diagnoses Pneumocystis jiroveci pneumonia B59 Pneumonitis J98.4 Acute hypoxic respiratory failure J96.01 Bilateral pulmonary embolism I26.99 Atrial fibrillation with rapid ventricular response I48.91 Adenocarcinoma of right lung C34.91 Laterality: right CAD (coronary artery disease) I25.10
== END 2024-12-22 05:15 | disposition expired | DRG 175 ==
LOC: ED 16:48 → EDINP 20:09 → SUATTDRO 20:09 → 2S 23:28 → 2W 12-03 22:36 → 1E 12-04 10:53 → 2E 12-13 06:57